=== PATIENT | female | born 1935 | race Caucasian/White ===

== ENCOUNTER 2018-02-08 16:59 | Inpatient (IN) | payer OTHER, MEDICARE ==
--- NOTE | 2018-02-08 17:11 | PDOC ---
History of Present Illness - General Stated Complaint: Weakness Time Seen by Provider: 02/08/18 17:03 History Source: Patient, EMS Exam Limitations: No Limitations - History of Present Illness Initial Comments: 02/08/18 17:11 The patient is an 82F with a PMH of hypertension, hypercholesterolemia, myocardial infarction, CVA and diabetes mellitus who presents to the ER via EMS for complaints of weakness and chest/epigastric pain. The patient states that she was in her normal state of health this morning and developed weakness around 9 am. She describes the weakness as constant, generalized, and feels like her prior CVA. She states that she was walking to the bathroom and felt like she was going to fall, and that's when she called EMS. She also admits to nonradiating and resolved epigastric/retrosternal chest pain which she cannot describe further, but was associated with shortness of breath. She currently denies any CP, SOB, fevers, chills, nausea, vomiting, but does endorse the weakness. She also states that she has been taking an antibiotic (Keflex) for [address] Grant, her urologist. Past History - Past Medical History Allergies/Adverse Reactions: Allergies Allergy/AdvReac Type Severity Reaction Status Date / Time codeine [Codeine] Allergy Verified 02/08/18 17:13 Home Medications: Ambulatory Orders Cephalexin [Keflex] 250 mg PO BID 02/08/18 Clopidogrel Bisulfate [Plavix] 75 mg PO DAILY 02/08/18 Insulin Aspart [Novolog] 40 unit SQ TID 02/08/18 Insulin Detemir [Levemir Flextouch] 40 unit SQ HS 02/08/18 Rosuvastatin [Crestor -] 20 mg PO DAILY 02/08/18 Sitagliptin Phosphate [Januvia] 25 mg PO DAILY 02/08/18 Cardiac Disorders: Yes (NM) CVA: Yes Diabetes: Yes HTN: Yes Hypercholesterolemia: Yes - Surgical History Cardiac Surgery: Yes (BYPASS 2011, ENDARDERECTOMY, 2 STENTS) Cholecystectomy: Yes Orthopedic Surgery: No - Suicide/Smoking/Psychosocial Hx Smoking Status: No Smoking History: Never smoked Have you smoked in the past 12 months: No Number of Cigarettes Smoked Daily: 0 Hx Alcohol Use: No Drug/Substance Use Hx: No Substance Use Type: None Hx Substance Use Treatment: No Review of Systems - Review of Systems Able to Perform ROS?: Yes Comments:: 02/08/18 17:57 GENERAL/CONSTITUTIONAL: Positive for weakness. No fever or chills. HEAD, EYES, EARS, NOSE AND THROAT: No change in vision. No ear pain or discharge. No sore throat. CARDIOVASCULAR: Positive for resolved chest pain. No palpitations or lightheadedness. RESPIRATORY: Positive for resolved shortness of breath. No cough, wheezing, or hemoptysis. GASTROINTESTINAL: No nausea, vomiting, diarrhea, constipation, or abdominal pain. GENITOURINARY: No dysuria, frequency, hematuria, or change in urination. MUSCULOSKELETAL: No joint or muscle swelling or pain. No neck or back pain. SKIN: No rash or lesions. NEUROLOGIC: No headache, numbness, tingling, focal weakness, loss of consciousness, or change in strength/sensation. ENDOCRINE: No increased thirst. No abnormal weight change. HEMATOLOGIC/LYMPHATIC: No anemia, easy bleeding, or history of blood clots. ALLERGIC/IMMUNOLOGIC: No hives or skin allergy.\ Is the patient limited Setswana proficient: No *Physical Exam - Physical Exam Comments: 02/08/18 17:59 GENERAL: Well developed, well nourished. Awake and alert. No acute distress. HEENT: Normocephalic, atraumatic. Hearing grossly normal. Moist mucous membranes. PERRLA, EOMI. No conjunctival pallor. Sclera are non-icteric. NECK: Supple. Full ROM. No JVD. CARDIOVASCULAR: Regular rate and rhythm. No murmurs, rubs, or gallops. PULMONARY: No evidence of respiratory distress. Lungs clear to auscultation bilaterally. No wheezing, rales or rhonchi. ABDOMINAL: Soft. TTP over epigastric, RUQ, LLQ, and RLQ. Guarding present in RUQ. Non-distended. GENITOURINARY: No CVA tenderness bilaterally. MUSCULOSKELETAL: Normal range of motion at all joints. No bony deformities or tenderness. EXTREMITIES: No cyanosis. No clubbing. No edema. No calf tenderness or swelling. SKIN: Warm and dry. Normal capillary refill. No rashes. No jaundice. NEUROLOGICAL: Alert, awake, appropriate. Cranial nerves 2-12 intact. No deficits to light touch and temperature in face, upper extremities and lower extremities. 5/5 strength in deltoids, biceps, triceps, quadriceps, hamstrings, and gastrocnemius. Finger to nose normal bilaterally. Normal speech. PSYCHIATRIC: Cooperative. Good eye contact. Appropriate mood and affect. ED Treatment Course - LABORATORY CBC & Chemistry Diagram: 02/08/18 17:23 02/08/18 17:23 - RADIOLOGY Radiology Studies Ordered: Category Date Time Status CHEST X-RAY PORTABLE* [RAD] Stat Radiology 02/08/18 17:09 Ordered Medical Decision Making - Medical Decision Making 02/08/18 18:02 The patient is an 82F, well appearing, with a PMH of HTN, HLD, CVA, and NM with 4 stents who presents to the ER with complaints of generalized weakness and resolved CP concerning for ACS vs CVA. Her abdominal exam is concerning for RUQ pathology vs worsening UTI although she does not have any CVA tenderness. Pending labs and imaging. 02/08/18 19:01 CBC WNL. Trop of 0.13. Will give asa and consult her egg crater, Dr. Forrester. Pending call back. 02/08/18 19:13 Case d/w Dr. Barry who states that it is likely 2/2 to cardiac demand as recent BP is 200/70's. Will give IV labetalol and PO carvedilol per recs of Dr. Forrester. Will microblog for admission. 02/08/18 19:57 I have endorsed the patient to Dr. Trinh for tele monitoring. 02/08/18 20:08 Repeat BP is 204/51 prior to giving meds with a HR of 65. Will cancel b- blockers and give hydralazine as the pt has kidney disease and cannot give NOY- I. *DC/Admit/Observation/Transfer Diagnosis at time of Disposition: Elevated troponin, Weakness - Discharge Dispostion Condition at time of disposition: Guarded Decision to Admit order: Yes - Referrals Referrals: Deric Hua MD [Primary Care Provider] - - Patient Instructions - Post Discharge Activity
[2018-02-08] MEDS ORDERED: HEMOQUE TEST 1 EACH EACH ONE (17:41)
[2018-02-08 17:44] LABS: BASO % 1.4 % (0-2.0); EOS % 1.8 % (0-4.5); HEMATOCRIT 38.6 % (32.4-45.2); HEMOGLOBIN 12.8 GM/dL (10.7-15.3); LYMPH % 26.1 % (8-40); MCH 30.5 pg (25.7-33.7); MCHC 33.3 g/dl (32.0-36.0); MEAN CELL VOLUME 91.6 fl (80-96); MEAN PLT VOLUME 10.5 fl (7.5-11.1); NEUT % 63.7 % (42.8-82.8); PLATELET COUNT 226 K/MM3 (134-434); RBC 4.22 M/mm3 (3.60-5.2); RDW 13.9 % (11.6-15.6); WHITE BLOOD COUNT 7.7 K/mm3 (4.0-10.0)
[2018-02-08 17:55] LABS: INR 0.92 (0.83-1.09); PROTHROMBIN TIME (PATIENT) 10.4 SEC (9.7-13.0)
--- NOTE | 2018-02-08 18:02 | PDOC ---
Attending Attestation - HPI HPI: 02/08/18 18:16 The patient is a 82 year old female with past medical history significant for CAD (s/p PTCI 2011), CHF, HTN, HLD, [place] (2010), CVA (R. side), GERD, Renal Inusuff, B12 Deficiency, Chronic low back pain, OA (left knee severe), spinal stenosis and DM presents to the emergency department via EMS with weakness. The patient states earlier today she was trying to ambulate to the bathroom when the onset of shakes presented. The patient states she felt as if shes about to fall. The patient is currently on treated for urine infection with Keflex. The patient states she follows Dr. Shepherd. The patient reports the baseline use of a walker to ambulate. Denies abdominal pain or chest pain. Denies any other complaints. Allergies: Codeine Social history: No reported use of past or present use of tobacco, alcohol or recreational drugs. Surgical history: PTCI (2011), PCP: Dr. Deric Hua Urologist: Dr. Shepherd. - Medical Decision Making 02/08/18 18:16 Documentation prepared by Merry Abernathy, acting as biomedical engineering internship for Flaquita Aleman MD. 02/08/18 19:[address] Forrester at 7:07 pm. 02/08/18 19:[address] Forrester. 02/08/18 19:[address] Hua's group at 7:48 pm. Waiting for a call back from Dr. Trihn. 02/08/18 19:[address] Trinh at 7:56 pm. <Merry Abernathy - Last Filed: 02/08/18 19:56> - Resident Resident Name: Fritz Lora - ED Attending Attestation I have performed the following: I have examined & evaluated the patient, The case was reviewed & discussed with the resident, I agree w/resident's findings & plan, Exceptions are as noted - Physicial Exam PE: GENERAL: Awake, alert, and fully oriented, in no acute distress HEAD: No signs of trauma EYES: PERRLA, EOMI, sclera anicteric, conjunctiva clear ENT: Auricles normal inspection, hearing grossly normal, nares patent, oropharynx clear without exudates. Moist mucosa NECK: Normal ROM, supple, no lymphadenopathy, JVD, or masses LUNGS: Breath sounds equal, clear to auscultation bilaterally. No wheezes, and no crackles HEART: Regular rate and rhythm, normal S1 and S2, no murmurs, rubs or gallops ABDOMEN: Soft, nontender, normoactive bowel sounds. No guarding, no rebound. No masses EXTREMITIES: Normal range of motion, no edema. No clubbing or cyanosis. No cords, erythema, or tenderness NEUROLOGICAL: Cranial nerves II through XII grossly intact. Normal speech. Moving all extremities. Strength 4/5 RUE/RLE (chronic since stroke, per patient , walks with cane). SKIN: Warm, Dry, normal turgor, no rashes or lesions noted. - Medical Decision Making Pt presents with weakness in both legs, having difficulty walking since this morning. She has no focal new deficits on exam (prior deficits from prior CVA noted). CVA unlikely at present. Will obtain CTH, but also will obtain UA, labs , troponin. <Flaquita Aleman - Last Filed: 02/08/18 23:22>
[2018-02-08 18:27] LABS: URINE APPEARANCE CLEAR; URINE BILIRUBIN NEGATIVE (<2.0 mg/dL); URINE COLOR LTYELLOW; URINE GLUCOSE (UA) NEGATIVE (NEGATIVE); URINE KETONE NEGATIVE (NEGATIVE); URINE LEUK ESTERASE NEGATIVE (NEGATIVE); URINE NITRITE NEGATIVE (NEGATIVE); URINE UROBILINOGEN NEGATIVE mg/dL (0.2-1.0)
[2018-02-08 18:31] LABS: URINE PROTEIN 2+ (NEGATIVE)
[2018-02-08 18:32] LABS: EPI CELLS RARE /HPF (FEW); URINE BACTERIA RARE /hpf (NONE SEEN)
[2018-02-08 18:51] LABS: ALBUMIN 3.2 g/dl (3.4-5.0); ALK PHOS 67 U/L (45-117); ANION GAP 5 MMOL/L (8-16); BILIRUBIN,TOTAL 0.4 mg/dL (0.2-1); BLOOD UREA NITROGEN 33 mg/dL (7-18); CALCIUM 8.7 mg/dL (8.5-10.1); CHLORIDE 106 mmol/L (98-107); CO2 28 mmol/L (21-32); CREATININE 1.8 mg/dL (0.55-1.3); GLUCOSE,RANDOM 124 mg/dL (74-106); LIPASE 167 U/L (73-393); MAGNESIUM 2.4 mg/dL (1.8-2.4); POTASSIUM 4.8 mmol/L (3.5-5.1); SGOT/AST 28 U/L (15-37); SGPT/ALT 21 U/L (13-61); SODIUM 139 mmol/L (136-145); TOT PROT 6.4 g/dl (6.4-8.2)
[2018-02-08] MEDS ORDERED: ASPIRIN COATED 81 MG TABLET.EC PO ONE (18:56)
[2018-02-08] MEDS ORDERED: ASPIRIN 325 MG TABLET ONE (19:00)
[2018-02-08] MEDS ORDERED: LABETALOL HCL 5 MG/1 ML (100MG/20 ML VIAL) IVPUSH ONE (19:14)
[2018-02-08] MEDS ORDERED: CARVEDILOL 6.25 MG TABLET (FP) PO ONE ×2 (19:15→20:05)
[2018-02-08] MEDS ORDERED: CARVEDILOL 3.125 MG TABLET (FP) ONE (19:54)
[2018-02-08] MEDS ORDERED: hydrALAZINE HCL 10 MG TABLET PO ONE (20:09)
[2018-02-08 21:20] LABS: N-TERMINAL BNP 973.8 pg/ml (5-450)
[2018-02-08] MEDS ORDERED: INSULIN (LEVEMIR) 100 UNITS/ML UNITS SQ SCH (22:00)
[2018-02-08] MEDS ORDERED: INSULIN (LEVEMIR) 100 UNITS/ML UNITS SQ ONE (22:04)
[2018-02-08] MEDS ORDERED: CEPHALEXIN MONOHYDRATE 250 MG CAPSULE (FP) ONE (22:07)
[2018-02-08] MEDS: CEPHALEXIN MONOHYDRATE 250 MG CAPSULE (FP) PO SCH (22:16)
[2018-02-08] MEDS: INSULIN (LEVEMIR) 100 UNITS/ML UNITS SQ SCH (22:17)
[2018-02-08 23:16] VITALS: BMI 33.8
[2018-02-08] MEDS: CARVEDILOL 6.25 MG TABLET (FP) PO SCH (23:31)
[2018-02-09 06:21] LABS: BASO % 0.5 % (0-2.0); EOS % 2.7 % (0-4.5); HEMATOCRIT 37.7 % (32.4-45.2); HEMOGLOBIN 12.4 GM/dL (10.7-15.3); LYMPH % 37.6 % (8-40); MCHC 32.9 g/dl (32.0-36.0); MEAN CELL VOLUME 91.1 fl (80-96); MEAN PLT VOLUME 10.5 fl (7.5-11.1); MONO % 7.2 % (3.8-10.2); PLATELET COUNT 208 K/MM3 (134-434); RBC 4.14 M/mm3 (3.60-5.2); RDW 13.9 % (11.6-15.6)
[2018-02-09] MEDS: sitaGLIPtin PHOSPHATE 25 MG TABLET (FP) PO SCH (06:30)
[2018-02-09] MEDS: INSULIN SLIDING SCALE (NOVOLOG) 1 VIAL SQ SCH ×3 (06:31→17:30)
[2018-02-09 07:20] LABS: ALK PHOS 63 U/L (45-117); ANION GAP 6 MMOL/L (8-16); BILIRUBIN,TOTAL 0.4 mg/dL (0.2-1); BLOOD UREA NITROGEN 31 mg/dL (7-18); CALCIUM 8.6 mg/dL (8.5-10.1); CHLORIDE 106 mmol/L (98-107); CO2 28 mmol/L (21-32); CREATININE 1.7 mg/dL (0.55-1.3); GLUCOSE,RANDOM 184 mg/dL (74-106); POTASSIUM 4.3 mmol/L (3.5-5.1); SGOT/AST 21 U/L (15-37); SGPT/ALT 21 U/L (13-61); SODIUM 140 mmol/L (136-145); TOT PROT 5.9 g/dl (6.4-8.2)
[2018-02-09] MEDS: CLOPIDOGREL BISULFATE 75 MG TABLET (FP) PO SCH (09:59)
[2018-02-09] MEDS: CARVEDILOL 6.25 MG TABLET (FP) PO SCH (09:59)
[2018-02-09] MEDS: ROSUVASTATIN CA 20 MG TABLET (FP) PO SCH (09:59)
[2018-02-09] MEDS: CEPHALEXIN MONOHYDRATE 250 MG CAPSULE (FP) PO SCH ×2 (10:02→21:39)
--- NOTE | 2018-02-09 10:03 | CON.CARD ---
Consult Consult Specialty:: Cardiology Referred by:: Gayathri Reason for Consultation:: positive trop - History of Present Illness Chief Complaint: weakness History of Present Illness: 82F h/o CKD, HTN, HLD, CAD s/p CABG (ROSENBERG-LAD, SVG-D1 2000), EDD to ROSENBERG-LAD and staged EDD to OM1 2011, RPDA stent 2013 with stable grafts in 2013, h/o TIA , PVD, uncontrolled DM p/w weakness, chest/epigastric pain. On morning of day of admission felt weakness which felt like prior TIA, was walking to bathroom and felt like she was going to fall. Also had epigastric pain with shortness of breath that was short lasting and resolved. In the ER Cr 1.8 (Cr 1.7 in 11/2017) , Trop 0.13->0.14, BP 200/70s. Received IV hydralazine not on BP meds at home, started on carvedilol given h/o CAD. head and abd/pelvis CT, CXR no acute process. She feels better today, still unsteady when she walks. - Past Medical History Cardio/Vascular: Yes: CAD (s/p PTCI 2011), CHF, HTN, Hyperlipdemia, [place] (2010) Pulmonary: Yes: Sleep Apnea Gastrointestinal: Yes: GERD Renal/: Yes: Renal Inusuff ...: No Musculoskeletal: Yes: Chronic low back pain, Osteoarthritis (left knee severe), Other (spinal stenosis) Endocrine: Yes: Diabetes Mellitus, Other (Obesity) - Past Surgical History Past Surgical History: Yes: Hysterectomy ((LIZZIE BSO for bleeding fibroids), Oopherectomy - Alcohol/Substance Use Hx Alcohol Use: No History of Substance Use: reports: None - Smoking History Smoking history: Never smoked Have you smoked in the past 12 months: No Aproximately how many cigarettes per day: 0 - Social History ADL: Family Assistance Occupation: , 3 children History of Recent Travel: No Home Medications - Allergies Allergies/Adverse Reactions: Allergies Allergy/AdvReac Type Severity Reaction Status Date / Time codeine [Codeine] Allergy Verified 02/08/18 17:13 - Home Medications Home Medications: Ambulatory Orders Cephalexin [Keflex] 250 mg PO BID 02/08/18 Clopidogrel Bisulfate [Plavix] 75 mg PO DAILY 02/08/18 Insulin Aspart [Novolog] 40 unit SQ TID 02/08/18 Insulin Detemir [Levemir Flextouch] 40 unit SQ HS 02/08/18 Rosuvastatin [Crestor -] 20 mg PO DAILY 02/08/18 Sitagliptin Phosphate [Januvia] 25 mg PO DAILY 02/08/18 Family Disease History - Family Disease History Family History: Unremarkable Review of Systems - Review of Systems Constitutional: reports: Weakness Eyes: reports: No Symptoms HENT: reports: No Symptoms Neck: reports: No Symptoms Cardiovascular: reports: Chest Pain, Shortness of Breath Respiratory: reports: No Symptoms Gastrointestinal: reports: Abdominal Pain Genitourinary: reports: No Symptoms Musculoskeletal: reports: No Symptoms Integumentary: reports: No Symptoms Neurological: reports: No Symptoms Endocrine: reports: No Symptoms Hematology/Lymphatic: reports: No Symptoms Psychiatric: reports: No Symptoms Vital Signs: Vital Signs Temperature 98.2 F 02/09/18 06:00 Pulse Rate 60 02/09/18 06:00 Respiratory Rate 20 02/09/18 06:00 Blood Pressure 155/90 02/09/18 06:00 O2 Sat by Pulse Oximetry (%) 98 02/08/18 23:00 Constitutional: Yes: Well Nourished, No Distress, Calm Eyes: Yes: Conjunctiva Clear, EOM Intact HENT: Yes: Atraumatic, Normocephalic Neck: Yes: Supple, Trachea Midline Respiratory: Yes: Regular, CTA Bilaterally Gastrointestinal: Yes: Normal Bowel Sounds, Soft Cardiovascular: Yes: Regular Rate and Rhythm JVD: No Heart Sounds: Yes: S1, S2 Edema: No Peripheral Pulses: 2+ Left Doralis Pedis, 2+ Right Dorsalis Pedis Neurological: Yes: Alert, Oriented Psychiatric: Yes: Alert, Oriented - Other Data Labs, Other Data: CBC, BMP 02/09/18 05:30 02/09/18 05:30 INR, PTT INR 0.92 (0.83-1.09) 02/08/18 17:23 Troponin, BNP 02/08/18 02/08/18 17:23 21:00 Troponin I 0.13 H 0.14 H B-Natriuretic Peptide 973.8 H Troponin, BNP 02/08/18 02/08/18 17:23 21:00 Troponin I 0.13 H 0.14 H B-Natriuretic Peptide 973.8 H Assessment/Plan EKG: sinus bradycardia, no ischemic changes, nonspecific T wave changes Echo 02/2017 tds, nl LV/RV function, E/A reversal, mild brock atrial enlargement CXR: no acute process 82F h/o CKD, HTN, HLD, CAD, h/o TIA, PVD, uncontrolled DM p/w weakness, chest/ epigastric pain tele: sinus HTN - improved, was not on meds at home - had been started on coreg due to CAD history, however note episodes of bradycardia history per reports, will dc - change to amlodipine 5 mg daily Chest, epigastric pain - trop flat trend, EKG unchanged, history less consistent with ACS - CT abd/pelvis unremarkable - resolved weakness - unclear etiology, imaging shows no acute process - feels like prior TIA, head CT negative, infectious w/u unremarkable - treat HTN as above Pos troponin - flat trend 0.13->0.14, EKG unchanged from prior, unlikely ACS - likely demand in setting of HTN CAD - s/p CABG (ROSENBERG-LAD, SVG-D1 2000), EDD to ROSENBERG-LAD and staged EDD to OM1 2011, RPDA stent 2013 with stable grafts in 2013 - continue statin and plavix h/o TIA - on plavix - CT head no acute process PVD - continue plavix, statin DM - uncontrolled CKD - Cr 1.8, last in clinic 1.7 10/2017
--- NOTE | 2018-02-09 12:50 | HP ---
Admitting History and Physical - Primary Care Physician PCP: Deric Hua - Admission Chief Complaint: Weakness and Epigastric pain History of Present Illness: 82F h/o HTN, HLD, CAD s/p CABGin 2000 , EDD 2011, RPDA stent 2013 TIA, PVD, uncontrolled T2DM , CKD stage 3 yesterday present with after an episode of weakness with epigastric pain while walking to [facility] came to Ed for evaluation, weakness was similar to previous episode of TIA, resolved by the time she arrived to ED, patient BP was uncontrolled recived Coreg and labetalol admitted for further management, no c/o vomiting, diarrhea, melena, fever chills , Chest pain or SOB, evaluated by cardiology consult for mild elevation of trop I. no dynamic EKG changes. - Past Medical History Cardiovascular: Yes: CAD (s/p PTCI 2011), CHF, HTN, Hyperlipdemia, [place] (2010) Pulmonary: Yes: Sleep Apnea Gastrointestinal: Yes: GERD Renal/: Yes: Renal Inusuff ...: No Heme/Onc: Yes: B12 Deficiency Musculoskeletal: Yes: Chronic low back pain, Osteoarthritis (left knee severe), Other (spinal stenosis) Endocrine: Yes: Diabetes Mellitus, Other (Obesity) - Past Surgical History Past Surgical History: Yes: Hysterectomy ((LIZZIE BSO for bleeding fibroids), Oopherectomy - Smoking History Smoking history: Never smoked Have you smoked in the past 12 months: No Aproximately how many cigarettes per day: 0 - Alcohol/Substance Use Hx Alcohol Use: No History of Substance Use: reports: None - Social History ADL: Family Assistance Occupation: , 3 children History of Recent Travel: No Home Medications - Allergies Allergies/Adverse Reactions: Allergies Allergy/AdvReac Type Severity Reaction Status Date / Time codeine [Codeine] Allergy Verified 02/08/18 17:13 - Home Medications Home Medications: Ambulatory Orders Cephalexin [Keflex] 250 mg PO BID 02/08/18 Clopidogrel Bisulfate [Plavix] 75 mg PO DAILY 02/08/18 Insulin Aspart [Novolog] 40 unit SQ TID 02/08/18 Insulin Detemir [Levemir Flextouch] 40 unit SQ HS 02/08/18 Rosuvastatin [Crestor -] 20 mg PO DAILY 02/08/18 Sitagliptin Phosphate [Januvia] 25 mg PO DAILY 02/08/18 Family Disease History - Family Disease History Family History: Unremarkable Review of Systems - Review of Systems Constitutional: denies: Chills, Diaphoresis, Fever Eyes: denies: Blind Spots, Blurred Vision, Double Vision HENT: denies: Difficult Swallowing, Ear Discharge, Ear Pain, Epistaxis Neck: denies: Decreased ROM, Lumps, Pain on Movement Cardiovascular: denies: Chest Pain, Edema, Palpitations, Shortness of Breath Respiratory: denies: Cough, Exercise Intolerance, Hemoptysis, Orthopnea Gastrointestinal: reports: Abdominal Pain. denies: Bloating, Constipation, Diarrhea Genitourinary: denies: Burning, Discharge, Dysuria, Flank Pain Musculoskeletal: denies: Back Pain, Crepitus, Decreased ROM Neurological: denies: Change in LOC, Change in Speech, Confusion Endocrine: denies: Excessive Sweating, Flushing, Increased Hunger Physical Examination Vital Signs: Vital Signs Temperature 98.4 F 02/09/18 10:00 Pulse Rate 61 02/09/18 10:00 Respiratory Rate 18 02/09/18 10:00 Blood Pressure 139/59 L 02/09/18 10:00 O2 Sat by Pulse Oximetry (%) 95 02/09/18 09:00 Constitutional: Yes: Well Nourished, No Distress, Calm. No: Anxious Eyes: Yes: Conjunctiva Clear, EOM Intact HENT: Yes: Atraumatic, Normocephalic. No: Hoarseness, Pharyngeal Erythema Neck: Yes: Supple, Trachea Midline. No: Decreased ROM, Lymphadenopathy Cardiovascular: Yes: Regular Rate and Rhythm, Bradycardia, S1, S2. No: Murmur Respiratory: Yes: Regular, CTA Bilaterally Gastrointestinal: Yes: Normal Bowel Sounds, Soft Extremities: No: Calf Tenderness Edema: No Peripheral Pulses: Left Doralis Pedis: 0, Right Dorsalis Pedis: 0 Neurological: Yes: Alert, Oriented. No: Aphasia, Asterixis ...Motor Strength: WNL, LUE, LLE, RUE Labs: CBC, BMP 02/09/18 05:30 02/09/18 05:30 CBC,CMP WBC 8.0 K/mm3 (4.0-10.0) 02/09/18 05:30 RBC 4.14 M/mm3 (3.60-5.2) 02/09/18 05:30 Hgb 12.4 GM/dL (10.7-15.3) 02/09/18 05:30 Hct 37.7 % (32.4-45.2) 02/09/18 05:30 MCV 91.1 fl (80-96) 02/09/18 05:30 MCH 30.0 pg (25.7-33.7) 02/09/18 05:30 MCHC 32.9 g/dl (32.0-36.0) 02/09/18 05:30 RDW 13.9 % (11.6-15.6) 02/09/18 05:30 Plt Count 208 K/MM3 (134-434) 02/09/18 05:30 MPV 10.5 fl (7.5-11.1) 02/09/18 05:30 Absolute Neuts (auto) 4.2 K/mm3 (1.5-8.0) 02/09/18 05:30 Neutrophils % 52.0 % (42.8-82.8) 02/09/18 05:30 Lymphocytes % 37.6 % (8-40) D 02/09/18 05:30 Monocytes % 7.2 % (3.8-10.2) 02/09/18 05:30 Eosinophils % 2.7 % (0-4.5) 02/09/18 05:30 Basophils % 0.5 % (0-2.0) 02/09/18 05:30 Nucleated RBC % 0 % (0-0) 02/09/18 05:30 Sodium 140 mmol/L (136-145) 02/09/18 05:30 Potassium 4.3 mmol/L (3.5-5.1) 02/09/18 05:30 Chloride 106 mmol/L (98-107) 02/09/18 05:30 Carbon Dioxide 28 mmol/L (21-32) 02/09/18 05:30 Anion Gap 6 MMOL/L (8-16) L 02/09/18 05:30 BUN 31 mg/dL (7-18) H 02/09/18 05:30 Creatinine 1.7 mg/dL (0.55-1.3) H 02/09/18 05:30 Creat Clearance w eGFR 28.77 (>60) 02/09/18 05:30 POC Glucometer 292 UNITS (80-120) 02/09/18 11:43 Random Glucose 184 mg/dL (74-106) H 02/09/18 05:30 Hemoglobin A1c % 9.1 % (4.2-6.3) H 02/09/18 05:30 Calcium 8.6 mg/dL (8.5-10.1) 02/09/18 05:30 Magnesium 2.4 mg/dL (1.8-2.4) 02/08/18 17:23 Total Bilirubin 0.4 mg/dL (0.2-1) 02/09/18 05:30 AST 21 U/L (15-37) 02/09/18 05:30 ALT 21 U/L (13-61) 02/09/18 05:30 Alkaline Phosphatase 63 U/L (45-117) 02/09/18 05:30 Creatine Kinase 62 IU/L (26-192) 02/08/18 17:23 Troponin I 0.14 ng/ml (0.00-0.05) H 02/08/18 21:00 B-Natriuretic Peptide 973.8 pg/ml (5-450) H 02/08/18 17:23 Total Protein 5.9 g/dl (6.4-8.2) L 02/09/18 05:30 Albumin 3.0 g/dl (3.4-5.0) L 02/09/18 05:30 Triglycerides 332 mg/dL (0-150) H 02/08/18 21:00 Cholesterol 141 mg/dL (50-200) 02/08/18 21:00 Total LDL Cholesterol 70 mg/dL (5-100) 02/08/18 21:00 HDL Cholesterol 34 mg/dL (40-60) L 02/08/18 21:00 Lipase 167 U/L (73-393) 02/08/18 17:23 Imaging - Results Chest X-ray: Report Reviewed (No acute changes) EKG: Report Reviewed (Nsr no acute St t changes) Problem List - Problems (1) HTN (hypertension) Assessment/Plan: Uncioontrolled amlodipine is added by cardiology consult Code(s): I10 - ESSENTIAL (PRIMARY) HYPERTENSION (2) CAD (coronary artery disease) Assessment/Plan: s/P CABG and Stent no new EKG changes evaluated by cardiology recommended , in view of mildly elevated Trop I recommonded cont all home meds Code(s): I25.10 - ATHSCL HEART DISEASE OF [place] CORONARY ARTERY W/O ANG PCTRS (3) CKD (chronic kidney disease) Assessment/Plan: Stable cont home meds Code(s): N18.9 - CHRONIC KIDNEY DISEASE, UNSPECIFIED Qualifiers: Chronic kidney disease stage: stage 3 (moderate) Qualified Code(s): N18.3 - Chronic kidney disease, stage 3 (moderate) (4) T2DM (type 2 diabetes mellitus) Assessment/Plan: cont Levomir, Januvia optimize Glycemic control Code(s): E11.9 - TYPE 2 DIABETES MELLITUS WITHOUT COMPLICATIONS (5) Elevated troponin Assessment/Plan: In the setting of elevated BP optomize Bp control Code(s): R74.8 - ABNORMAL LEVELS OF OTHER SERUM ENZYMES (6) Dyslipidemia Assessment/Plan: cont Statin Code(s): E78.5 - HYPERLIPIDEMIA, UNSPECIFIED
[2018-02-09] MEDS: amLODIPine BESYLATE 5 MG TABLET (FP) PO SCH (14:20)
--- NOTE | 2018-02-09 15:35 | EKG ---
Test Reason : Blood Pressure : / mmHG Vent. Rate : 059 BPM Atrial Rate : 059 BPM P-R Int : 176 ms QRS Dur : 084 ms QT Int : 442 ms P-R-T Axes : 015 011 097 degrees QTc Int : 437 ms SINUS BRADYCARDIA ABNORMAL QRS-T ANGLE, CONSIDER PRIMARY T WAVE ABNORMALITY ABNORMAL ECG WHEN COMPARED WITH ECG OF 27-MAR-2016 16:40, T WAVE AMPLITUDE HAS DECREASED IN LATERAL LEADS Confirmed by MD Aubrey, Keo ([id number]) on 02/09/2018 3:35:30 PM Referred By: Confirmed By:Keo Burgos MD
[2018-02-09] MEDS ORDERED: PT OWN MED DRAWER 7, Y5N ONE (21:37)
[2018-02-09] MEDS: INSULIN (LEVEMIR) 100 UNITS/ML UNITS SQ SCH (21:39)
[2018-02-10] MEDS: INSULIN SLIDING SCALE (NOVOLOG) 1 VIAL SQ SCH ×3 (06:41→18:12)
[2018-02-10] MEDS ORDERED: INSULIN (NOVOLOG) ASPART 100 UNITS/ML 10ML VIAL ONE ×2 (06:41→12:17)
[2018-02-10] MEDS: sitaGLIPtin PHOSPHATE 25 MG TABLET (FP) PO SCH (06:42)
[2018-02-10] MEDS ORDERED: PT OWN MED DRAWER 7, Y5N ONE (09:50)
--- NOTE | 2018-02-10 10:18 | PN ---
Progress Note (short form) - Note Progress Note: s: no chest pain, dizziness, palps, edema, sob tele: sinus jermain, PVCs o: Current Medications Amlodipine Besylate (Norvasc -) 5 mg PO DAILY [facility] Last Admin: 02/09/18 14:20 Dose: 5 mg Cephalexin HCl (Keflex -) 250 mg PO BID [facility] Last Admin: 02/09/18 21:39 Dose: 250 mg Clopidogrel Bisulfate (Plavix -) 75 mg PO DAILY [facility] Last Admin: 02/09/18 09:59 Dose: 75 mg Insulin Aspart (Novolog Vial Sliding Scale -) 1 vial SQ TIDAC [facility]; Protocol Last Admin: 02/10/18 06:41 Dose: 4 units Insulin Detemir (Levemir Vial) 20 units SQ [facility] Last Admin: 02/09/18 21:39 Dose: 20 units Rosuvastatin Calcium (Crestor -) 20 mg PO DAILY [facility] Last Admin: 02/09/18 09:59 Dose: 20 mg Sitagliptin Phosphate (Januvia -) 25 mg PO DAILY@0700 [facility] Last Admin: 02/10/18 06:42 Dose: 25 mg Vital Signs Period Temp Pulse Resp BP Sys/Mckeon Pulse Ox Last 24 Hr 97.5 F-98.5 F 52-65 20-20 126-158/48-67 95-98 Constitutional: Yes: Well Nourished, No Distress, Calm Eyes: Yes: Conjunctiva Clear, EOM Intact HENT: Yes: Atraumatic, Normocephalic Neck: Yes: Supple, Trachea Midline Respiratory: Yes: Regular, CTA Bilaterally Gastrointestinal: Yes: Normal Bowel Sounds, Soft Cardiovascular: Yes: Regular Rate and Rhythm JVD: No Heart Sounds: Yes: S1, S2 Edema: No Peripheral Pulses: 2+ Left Doralis Pedis, 2+ Right Dorsalis Pedis Neurological: Yes: Alert, Oriented Psychiatric: Yes: Alert, Oriented Assessment/Plan EKG: sinus bradycardia, no ischemic changes, nonspecific T wave changes Echo 02/2017 tds, nl LV/RV function, E/A reversal, mild brock atrial enlargement CXR: no acute process 82F h/o CKD, HTN, HLD, CAD, h/o TIA, PVD, uncontrolled DM p/w weakness, chest/ epigastric pain tele: sinus HTN - improved, was not on meds at home - had been started on coreg due to CAD history, however note episodes of bradycardia history per reports, dc'ed - started on amlodipine, BP improved, continue Chest, epigastric pain - trop flat trend, EKG unchanged, history less consistent with ACS - CT abd/pelvis unremarkable - resolved weakness - unclear etiology, imaging shows no acute process - feels like prior TIA, head CT negative, infectious w/u unremarkable - treat HTN as above - feels better today, unsteady walking, may need PT eval Pos troponin - flat trend 0.13->0.14, EKG unchanged from prior, unlikely ACS - likely demand in setting of HTN CAD - s/p CABG (ROSENBERG-LAD, SVG-D1 2000), EDD to ROSENBERG-LAD and staged EDD to OM1 2011, RPDA stent 2013 with stable grafts in 2013 - continue statin and plavix - no sign ACS as above h/o TIA - on plavix - CT head no acute process PVD - continue plavix, statin DM - uncontrolled CKD - Cr 1.8, last in clinic 1.7 10/2017
[2018-02-10] MEDS: amLODIPine BESYLATE 5 MG TABLET (FP) PO SCH (10:43)
[2018-02-10] MEDS: ROSUVASTATIN CA 20 MG TABLET (FP) PO SCH (10:43)
[2018-02-10] MEDS: CEPHALEXIN MONOHYDRATE 250 MG CAPSULE (FP) PO SCH ×2 (10:43→22:01)
[2018-02-10] MEDS: CLOPIDOGREL BISULFATE 75 MG TABLET (FP) PO SCH (10:43)
--- NOTE | 2018-02-10 13:11 | PN ---
Progress Note, Physician Chief Complaint: Comfortable not in distress - Current Medication List Current Medications: Active Medications Amlodipine Besylate (Norvasc -) 5 mg PO DAILY [facility] Last Admin: 02/10/18 10:43 Dose: 5 mg Cephalexin HCl (Keflex -) 250 mg PO BID [facility] Last Admin: 02/10/18 10:43 Dose: 250 mg Clopidogrel Bisulfate (Plavix -) 75 mg PO DAILY [facility] Last Admin: 02/10/18 10:43 Dose: 75 mg Insulin Aspart (Novolog Vial Sliding Scale -) 1 vial SQ TIDAC [facility]; Protocol Last Admin: 02/10/18 12:16 Dose: 12 units Insulin Detemir (Levemir Vial) 20 units SQ HS [facility] Last Admin: 02/09/18 21:39 Dose: 20 units Rosuvastatin Calcium (Crestor -) 20 mg PO DAILY [facility] Last Admin: 02/10/18 10:43 Dose: 20 mg Sitagliptin Phosphate (Januvia -) 25 mg PO DAILY@0700 [facility] Last Admin: 02/10/18 06:42 Dose: 25 mg - Objective Vital Signs: Vital Signs Temperature 98.2 F 02/10/18 05:14 Pulse Rate 52 L 02/10/18 05:14 Respiratory Rate 20 02/10/18 09:00 Blood Pressure 140/48 L 02/10/18 05:14 O2 Sat by Pulse Oximetry (%) 98 02/10/18 09:00 Constitutional: Yes: Well Nourished, No Distress, Calm. No: Anxious HEENT: Conjunctiva Clear, EOM Intact, Atraumatic, Normocephalic. No: Hoarseness , Pharyngeal Erythema Neck: Yes: Supple, Trachea Midline. No: Decreased ROM, Lymphadenopathy Cardiovascular: Yes: Regular Rate and Rhythm, Bradycardia, S1, S2. No: Murmur Respiratory: Yes: Regular, CTA Bilaterally Gastrointestinal: Yes: Normal Bowel Sounds, Soft Extremities: No: Calf Tenderness, no Edema, Peripheral Pulses: Left Doralis Pedis: 1, Right Dorsalis Pedis: 1 Neurological: Yes: Alert, Oriented. No: Aphasia, Asterixis, .Motor Strength: WNL, LUE, LLE, RUE Labs: CBC, BMP 02/09/18 05:30 02/09/18 05:30 INR, PTT INR 0.92 (0.83-1.09) 02/08/18 17:23 Problem List - Problems (1) HTN (hypertension) Assessment/Plan: Uncioontrolled amlodipine is added by cardiology consult Code(s): I10 - ESSENTIAL (PRIMARY) HYPERTENSION (2) CAD (coronary artery disease) Assessment/Plan: s/P CABG and Stent no new EKG changes evaluated by cardiology recommended , in view of mildly elevated Trop I recommonded cont all home meds Code(s): I25.10 - ATHSCL HEART DISEASE OF [place] CORONARY ARTERY W/O ANG PCTRS (3) CKD (chronic kidney disease) Assessment/Plan: Stable cont home meds Code(s): N18.9 - CHRONIC KIDNEY DISEASE, UNSPECIFIED Qualifiers: Chronic kidney disease stage: stage 3 (moderate) Qualified Code(s): N18.3 - Chronic kidney disease, stage 3 (moderate) (4) T2DM (type 2 diabetes mellitus) Assessment/Plan: cont Levomir, Januvia optimize Glycemic control Code(s): E11.9 - TYPE 2 DIABETES MELLITUS WITHOUT COMPLICATIONS (5) Elevated troponin Assessment/Plan: In the setting of elevated BP optomize Bp control Code(s): R74.8 - ABNORMAL LEVELS OF OTHER SERUM ENZYMES (6) Dyslipidemia Assessment/Plan: cont Statin Code(s): E78.5 - HYPERLIPIDEMIA, UNSPECIFIED (7) Chronic UTI Assessment/Plan: on suppressive abx f/u u culture Code(s): N39.0 - URINARY TRACT INFECTION, SITE NOT SPECIFIED
[2018-02-10] MEDS: INSULIN (LEVEMIR) 100 UNITS/ML UNITS SQ SCH (22:01)
[2018-02-11] MEDS: INSULIN SLIDING SCALE (NOVOLOG) 1 VIAL SQ SCH ×3 (06:24→17:11)
[2018-02-11] MEDS: sitaGLIPtin PHOSPHATE 25 MG TABLET (FP) PO SCH (06:25)
[2018-02-11 06:55] LABS: BASO % 0.5 % (0-2.0); EOS % 3.1 % (0-4.5); HEMATOCRIT 37.9 % (32.4-45.2); HEMOGLOBIN 12.3 GM/dL (10.7-15.3); LYMPH % 35.4 % (8-40); MCH 30.1 pg (25.7-33.7); MCHC 32.6 g/dl (32.0-36.0); MEAN CELL VOLUME 92.5 fl (80-96); MEAN PLT VOLUME 10.4 fl (7.5-11.1); MONO % 6.9 % (3.8-10.2); NEUT % 54.1 % (42.8-82.8); PLATELET COUNT 187 K/MM3 (134-434); RDW 13.6 % (11.6-15.6); WHITE BLOOD COUNT 8.3 K/mm3 (4.0-10.0)
[2018-02-11 07:25] LABS: ALBUMIN 2.9 g/dl (3.4-5.0); ALK PHOS 61 U/L (45-117); ANION GAP 8 MMOL/L (8-16); BILIRUBIN,TOTAL 0.4 mg/dL (0.2-1); BLOOD UREA NITROGEN 39 mg/dL (7-18); CALCIUM 8.7 mg/dL (8.5-10.1); CHLORIDE 105 mmol/L (98-107); CO2 26 mmol/L (21-32); CREATININE 1.7 mg/dL (0.55-1.3); GLUCOSE,RANDOM 206 mg/dL (74-106); POTASSIUM 4.4 mmol/L (3.5-5.1); SGOT/AST 19 U/L (15-37); SGPT/ALT 20 U/L (13-61); SODIUM 139 mmol/L (136-145); TOT PROT 5.9 g/dl (6.4-8.2)
[2018-02-11] MEDS ORDERED: PT OWN MED DRAWER 7, Y5N ONE (09:46)
--- NOTE | 2018-02-11 10:42 | PN ---
Progress Note (short form) - Note Progress Note: s: no chest pain, dizziness, palps, edema, sob tele: sinus jermain, PVCs o: Current Medications Amlodipine Besylate (Norvasc -) 5 mg PO DAILY [facility] Last Admin: 02/10/18 10:43 Dose: 5 mg Cephalexin HCl (Keflex -) 250 mg PO BID [facility] Last Admin: 02/10/18 22:01 Dose: 250 mg Clopidogrel Bisulfate (Plavix -) 75 mg PO DAILY [facility] Last Admin: 02/10/18 10:43 Dose: 75 mg Insulin Aspart (Novolog Vial Sliding Scale -) 1 vial SQ TIDAC [facility]; Protocol Last Admin: 02/11/18 06:24 Dose: 4 units Insulin Detemir (Levemir Vial) 20 units SQ [facility] Last Admin: 02/10/18 22:01 Dose: 20 units Rosuvastatin Calcium (Crestor -) 20 mg PO DAILY [facility] Last Admin: 02/10/18 10:43 Dose: 20 mg Sitagliptin Phosphate (Januvia -) 25 mg PO DAILY@0700 [facility] Last Admin: 02/11/18 06:25 Dose: 25 mg Vital Signs Period Temp Pulse Resp BP Sys/Mckeon Pulse Ox Last 24 Hr 97.8 F-98.6 F 56-65 18-20 127-169/62-85 98-98 Constitutional: Yes: Well Nourished, No Distress, Calm Eyes: Yes: Conjunctiva Clear, EOM Intact HENT: Yes: Atraumatic, Normocephalic Neck: Yes: Supple, Trachea Midline Respiratory: Yes: Regular, CTA Bilaterally Gastrointestinal: Yes: Normal Bowel Sounds, Soft Cardiovascular: Yes: Regular Rate and Rhythm JVD: No Heart Sounds: Yes: S1, S2 Edema: No Peripheral Pulses: 2+ Left Doralis Pedis, 2+ Right Dorsalis Pedis Neurological: Yes: Alert, Oriented Psychiatric: Yes: Alert, Oriented Assessment/Plan EKG: sinus bradycardia, no ischemic changes, nonspecific T wave changes Echo 02/2017 tds, nl LV/RV function, E/A reversal, mild brock atrial enlargement CXR: no acute process 82F h/o CKD, HTN, HLD, CAD, h/o TIA, PVD, uncontrolled DM p/w weakness, chest/ epigastric pain tele: sinus HTN - improved, was not on meds at home - had been started on coreg due to CAD history, however note episodes of bradycardia history per reports, dc'ed - started on amlodipine, increase dose to 10 mg daily Chest, epigastric pain - trop flat trend, EKG unchanged, history less consistent with ACS - CT abd/pelvis unremarkable - resolved weakness - unclear etiology, imaging shows no acute process - feels like prior TIA, head CT negative, infectious w/u unremarkable - treat HTN as above - feels better today, unsteady walking, PT eval Pos troponin - flat trend 0.13->0.14, EKG unchanged from prior, unlikely ACS - likely demand in setting of HTN CAD - s/p CABG (ROSENBERG-LAD, SVG-D1 2000), EDD to ROSENBERG-LAD and staged EDD to OM1 2011, RPDA stent 2013 with stable grafts in 2013 - continue statin and plavix - no sign ACS as above h/o TIA - on plavix - CT head no acute process PVD - continue plavix, statin DM - uncontrolled CKD - Cr 1.8, last in clinic 1.7 10/2017
[2018-02-11] MEDS: CLOPIDOGREL BISULFATE 75 MG TABLET (FP) PO SCH (11:10)
[2018-02-11] MEDS: ROSUVASTATIN CA 20 MG TABLET (FP) PO SCH (11:10)
[2018-02-11] MEDS: CEPHALEXIN MONOHYDRATE 250 MG CAPSULE (FP) PO SCH ×2 (11:10→21:49)
[2018-02-11] MEDS: amLODIPine BESYLATE 10 MG TABLET (FP) PO SCH (11:10)
--- NOTE | 2018-02-11 13:12 | PN ---
Progress Note, Physician Chief Complaint: Ms Ramos complains of difficulty walking. No cp, sob, n/v. - Current Medication List Current Medications: Active Medications Amlodipine Besylate (Norvasc -) 10 mg PO DAILY [facility] Last Admin: 02/11/18 11:10 Dose: 10 mg Cephalexin HCl (Keflex -) 250 mg PO BID [facility] Last Admin: 02/11/18 11:10 Dose: 250 mg Clopidogrel Bisulfate (Plavix -) 75 mg PO DAILY [facility] Last Admin: 02/11/18 11:10 Dose: 75 mg Insulin Aspart (Novolog Vial Sliding Scale -) 1 vial SQ TIDAC [facility]; Protocol Last Admin: 02/11/18 12:02 Dose: 8 units Insulin Detemir (Levemir Vial) 20 units SQ BID [facility] Rosuvastatin Calcium (Crestor -) 20 mg PO DAILY [facility] Last Admin: 02/11/18 11:10 Dose: 20 mg Sitagliptin Phosphate (Januvia -) 25 mg PO DAILY@0700 [facility] Last Admin: 02/11/18 06:25 Dose: 25 mg - Objective Vital Signs: Vital Signs Temperature 37.0 C 02/11/18 01:54 Pulse Rate 65 02/11/18 08:49 Respiratory Rate 18 02/11/18 08:51 Blood Pressure 157/74 02/11/18 08:49 O2 Sat by Pulse Oximetry (%) 98 02/11/18 08:51 Constitutional: Yes: No Distress, Calm, Obese Cardiovascular: Yes: Regular Rate and Rhythm. No: Gallop, Murmur, Rub Respiratory: Yes: Regular, CTA Bilaterally. No: Rales, Rhonchi, Wheezes Gastrointestinal: Yes: Normal Bowel Sounds, Soft. No: Distention, Tenderness Extremities: Yes: WNL Edema: No Labs: CBC, BMP 02/11/18 05:30 02/11/18 05:30 INR, PTT INR 0.92 (0.83-1.09) 02/08/18 17:23 Problem List - Problems (1) HTN (hypertension) Assessment/Plan: -improved control with amlodipine -on full dose -monitor -can add other medications as an outpatient if remains elevated Code(s): I10 - ESSENTIAL (PRIMARY) HYPERTENSION (2) Elevated troponin Assessment/Plan: -appreciate cardiology assistance -case d/w Dr Forrester -no further intervention needed Code(s): R74.8 - ABNORMAL LEVELS OF OTHER SERUM ENZYMES (3) T2DM (type 2 diabetes mellitus) Assessment/Plan: -poorly controlled here but on levemir 40 units qhs and 20 units here -will change levemir to 20 units bid Code(s): E11.9 - TYPE 2 DIABETES MELLITUS WITHOUT COMPLICATIONS (4) Weakness Assessment/Plan: -PT consulted -awaiting assessment but suspect will need SNF placement Code(s): R53.1 - WEAKNESS (5) CAD (coronary artery disease) Assessment/Plan: -continue home regimen -currently no chest pain Code(s): I25.10 - ATHSCL HEART DISEASE OF [place] CORONARY ARTERY W/O ANG PCTRS (6) CKD (chronic kidney disease) Assessment/Plan: -stable Code(s): N18.9 - CHRONIC KIDNEY DISEASE, UNSPECIFIED Qualifiers: Chronic kidney disease stage: stage 3 (moderate) Qualified Code(s): N18.3 - Chronic kidney disease, stage 3 (moderate) (7) Dyslipidemia Assessment/Plan: -continue statin Code(s): E78.5 - HYPERLIPIDEMIA, UNSPECIFIED (8) Osteoarthritis of knee Assessment/Plan: -SNF for PT Code(s): M17.9 - OSTEOARTHRITIS OF KNEE, UNSPECIFIED Qualifiers: Osteoarthritis type: primary Laterality: right Qualified Code(s): M17.11 - Unilateral primary osteoarthritis, right knee
[2018-02-11] MEDS: INSULIN (LEVEMIR) 100 UNITS/ML UNITS SQ SCH (21:50)
[2018-02-12] MEDS: sitaGLIPtin PHOSPHATE 25 MG TABLET (FP) PO SCH (06:31)
[2018-02-12] MEDS: INSULIN (LEVEMIR) 100 UNITS/ML UNITS SQ SCH (06:31)
[2018-02-12] MEDS: INSULIN SLIDING SCALE (NOVOLOG) 1 VIAL SQ SCH ×2 (06:32→11:21)
[2018-02-12 06:49] LABS: BASO % 0.6 % (0-2.0); EOS % 2.8 % (0-4.5); HEMATOCRIT 38.7 % (32.4-45.2); HEMOGLOBIN 12.7 GM/dL (10.7-15.3); LYMPH % 33.8 % (8-40); MCH 30.4 pg (25.7-33.7); MEAN CELL VOLUME 92.3 fl (80-96); MEAN PLT VOLUME 10.5 fl (7.5-11.1); MONO % 6.8 % (3.8-10.2); PLATELET COUNT 203 K/MM3 (134-434); RBC 4.19 M/mm3 (3.60-5.2); WHITE BLOOD COUNT 8.8 K/mm3 (4.0-10.0)
[2018-02-12 07:18] LABS: ANION GAP 10 MMOL/L (8-16); BLOOD UREA NITROGEN 36 mg/dL (7-18); CHLORIDE 106 mmol/L (98-107); CO2 25 mmol/L (21-32); CREATININE 1.6 mg/dL (0.55-1.3); GLUCOSE,RANDOM 218 mg/dL (74-106); MAGNESIUM 2.3 mg/dL (1.8-2.4); PHOSPHOROUS 4.2 mg/dL (2.5-4.9); POTASSIUM 4.3 mmol/L (3.5-5.1); SODIUM 141 mmol/L (136-145)
[2018-02-12 08:26] VITALS: BP 114/49; PULSE 59; TEMP 98.2
[2018-02-12] MEDS ORDERED: PT OWN MED DRAWER 7, Y5N ONE (09:54)
[2018-02-12] MEDS: ROSUVASTATIN CA 20 MG TABLET (FP) PO SCH (09:55)
[2018-02-12] MEDS: CEPHALEXIN MONOHYDRATE 250 MG CAPSULE (FP) PO SCH (09:55)
[2018-02-12] MEDS: CLOPIDOGREL BISULFATE 75 MG TABLET (FP) PO SCH (09:55)
[2018-02-12] MEDS: amLODIPine BESYLATE 10 MG TABLET (FP) PO SCH (09:55)
--- NOTE | 2018-02-12 10:32 | PN ---
Progress Note (short form) - Note Progress Note: s: no chest pain, dizziness, palps, edema, sob. feels tired tele: sinus o: Current Medications Amlodipine Besylate (Norvasc -) 10 mg PO DAILY [facility] Last Admin: 02/12/18 09:55 Dose: 10 mg Cephalexin HCl (Keflex -) 250 mg PO BID [facility] Last Admin: 02/12/18 09:55 Dose: 250 mg Clopidogrel Bisulfate (Plavix -) 75 mg PO DAILY [facility] Last Admin: 02/12/18 09:55 Dose: 75 mg Insulin Aspart (Novolog Vial Sliding Scale -) 1 vial SQ TIDAC [facility]; Protocol Last Admin: 02/12/18 06:32 Dose: 4 units Insulin Detemir (Levemir Vial) 20 units SQ BID@0700,2200 [facility] Last Admin: 02/12/18 06:31 Dose: 20 units Rosuvastatin Calcium (Crestor -) 20 mg PO DAILY [facility] Last Admin: 02/12/18 09:55 Dose: 20 mg Sitagliptin Phosphate (Januvia -) 25 mg PO DAILY@0700 [facility] Last Admin: 02/12/18 06:31 Dose: 25 mg Vital Signs Period Temp Pulse Resp BP Sys/Mckeon Pulse Ox Last 24 Hr 97.5 F-98.8 F 56-63 18-20 114-159/49-64 96-98 Constitutional: Yes: Well Nourished, No Distress, Calm Eyes: Yes: Conjunctiva Clear, EOM Intact HENT: Yes: Atraumatic, Normocephalic Neck: Yes: Supple, Trachea Midline Respiratory: Yes: Regular, CTA Bilaterally Gastrointestinal: Yes: Normal Bowel Sounds, Soft Cardiovascular: Yes: Regular Rate and Rhythm JVD: No Heart Sounds: Yes: S1, S2 Edema: No Peripheral Pulses: 2+ Left Doralis Pedis, 2+ Right Dorsalis Pedis Neurological: Yes: Alert, Oriented Psychiatric: Yes: Alert, Oriented Assessment/Plan EKG: sinus bradycardia, no ischemic changes, nonspecific T wave changes Echo 02/2017 tds, nl LV/RV function, E/A reversal, mild brock atrial enlargement CXR: no acute process 82F h/o CKD, HTN, HLD, CAD, h/o TIA, PVD, uncontrolled DM p/w weakness, chest/ epigastric pain tele: sinus HTN - improved, was not on meds at home - had been started on coreg due to CAD history, however note episodes of bradycardia history per reports, dc'ed - continue amlodipine Chest, epigastric pain - trop flat trend, EKG unchanged, history less consistent with ACS - CT abd/pelvis unremarkable - resolved - stable from cardiac perspective, DC telemetry weakness - unclear etiology, imaging shows no acute process - feels like prior TIA, head CT negative, infectious w/u unremarkable - treat HTN as above - feels better today, unsteady walking, PT eval - pos Ucx, on abx per primary Pos troponin - flat trend 0.13->0.14, EKG unchanged from prior, unlikely ACS - likely demand in setting of HTN CAD - s/p CABG (ROSENBERG-LAD, SVG-D1 2000), EDD to ROSENBERG-LAD and staged EDD to OM1 2011, RPDA stent 2013 with stable grafts in 2014 - continue statin and plavix - no sign ACS as above h/o TIA - on plavix - CT head no acute process PVD - continue plavix, statin DM - uncontrolled CKD - Cr 1.8, last in clinic 1.7 10/2017 DC TELEMETRY
--- NOTE | 2018-02-12 13:03 | DS ---
Physical Examination Vital Signs: Vital Signs Temperature 36.8 C 02/12/18 08:23 Pulse Rate 59 L 02/12/18 08:23 Respiratory Rate 18 02/12/18 08:23 Blood Pressure 114/49 L 02/12/18 08:23 O2 Sat by Pulse Oximetry (%) 96 02/12/18 08:23 Constitutional: Yes: Well Nourished, No Distress, Calm Cardiovascular: Yes: Regular Rate and Rhythm. No: Gallop, Murmur, Rub Respiratory: Yes: Regular, CTA Bilaterally. No: Rales, Rhonchi, Wheezes Gastrointestinal: Yes: Normal Bowel Sounds, Soft. No: Distention, Tenderness Extremities: Yes: WNL Edema: No Labs: CBC, BMP 02/12/18 05:30 02/12/18 05:30 Discharge Summary Reason For Visit: ELEVATED TROPONIN LEVEL,WEAKNESS Current Active Problems Chronic UTI (Acute) Elevated troponin (Acute) T2DM (type 2 diabetes mellitus) (Acute) Weakness (Acute) Hospital Course: (1) HTN (hypertension) Code(s): I10 - ESSENTIAL (PRIMARY) HYPERTENSION (2) Elevated troponin Code(s): R74.8 - ABNORMAL LEVELS OF OTHER SERUM ENZYMES (3) T2DM (type 2 diabetes mellitus) Code(s): E11.9 - TYPE 2 DIABETES MELLITUS WITHOUT COMPLICATIONS (4) Weakness Code(s): R53.1 - WEAKNESS (5) CAD (coronary artery disease) Code(s): I25.10 - ATHSCL HEART DISEASE OF [place] CORONARY ARTERY W/O ANG PCTRS (6) CKD (chronic kidney disease) Code(s): N18.9 - CHRONIC KIDNEY DISEASE, UNSPECIFIED Qualifiers: Chronic kidney disease stage: stage 3 (moderate) Qualified Code(s): N18.3 - Chronic kidney disease, stage 3 (moderate) (7) Dyslipidemia Code(s): E78.5 - HYPERLIPIDEMIA, UNSPECIFIED (8) Osteoarthritis of knee Code(s): M17.9 - OSTEOARTHRITIS OF KNEE, UNSPECIFIED Qualifiers: Osteoarthritis type: primary Laterality: right Qualified Code(s): M17.11 - Unilateral primary osteoarthritis, right knee Ms Ramos is a pleasant 82 year old female who came in with epigastric pain and was found to have uncontrolled hypertension and elevated troponins. She was admitted to telemetry and cardiology was consulted. She was on coreg but bradycardia was noted and this was changed to amlodipine. Her amlodipine was uptitrated to 10mg daily. Her blood pressure is now controlled. She was also noted to have elevated troponins but this was in the light of CKD which remained stable. Her troponin also remained stable and this elevation was not thought to be due to ACS per cardiology. She was continued on her home regimen. She is currently stable for discharge to SNF for continued rehabilitation. Discussed with Dr Forrester who agrees patient is safe for discharge from a cardiac standpoint. 32 minutes spent in preparation of this discharge. Condition: Stable - Instructions Diet, Activity, Other Instructions: diabetic diet. Up with assistance, further activity per PT at SNF. Referrals: Deric Hua MD [Primary Care Provider] - Disposition: [facility] - Home Medications Comprehensive Discharge Medication List: Ambulatory Orders Cephalexin [Keflex] 250 mg PO BID 02/08/18 Clopidogrel Bisulfate [Plavix] 75 mg PO DAILY 02/08/18 Insulin Aspart [Novolog Flexpen] 40 unit SQ TID 02/08/18 Insulin Detemir [Levemir Flextouch] 40 unit SQ HS 02/08/18 Rosuvastatin [Crestor -] 20 mg PO DAILY 02/08/18 Sitagliptin Phosphate [Januvia] 25 mg PO DAILY 02/08/18 Amlodipine Besylate [Norvasc -] 10 mg PO DAILY tablet 02/12/18 Insulin (Levemir) [Levemir Vial] 20 units SQ HS units 02/12/18 Insulin Sliding Scale [Novolog Vial Sliding Scale -] 1 vial SQ TIDAC units
== END 2018-02-12 15:24 | DRG 292 ==
LOC: JER 16:59 → JERBED 19:58 → J4W 22:36
PROVIDERS: ADMIT Internal Medicine; ATTEND Internal Medicine
DX: I13.0 Hypertensive heart and chronic kidney disease with heart failure and stage 1 through stage 4 chronic kidney disease, or unspecified chronic kidney disease (principal); N39.0 Urinary tract infection, site not specified; I24.8 Other forms of acute ischemic heart disease; R53.1 Weakness; E78.00 Pure hypercholesterolemia, unspecified; I25.2 Old myocardial infarction; Z79.4 Long term (current) use of insulin; I25.10 Atherosclerotic heart disease of native coronary artery without angina pectoris; I50.9 Heart failure, unspecified; K21.9 Gastro-esophageal reflux disease without esophagitis; Z98.61 Coronary angioplasty status; E53.8 Deficiency of other specified B group vitamins; M54.5 Low back pain; Z95.1 Presence of aortocoronary bypass graft; E11.51 Type 2 diabetes mellitus with diabetic peripheral angiopathy without gangrene; E11.22 Type 2 diabetes mellitus with diabetic chronic kidney disease; Z86.73 Personal history of transient ischemic attack (TIA), and cerebral infarction without residual deficits; E11.65 Type 2 diabetes mellitus with hyperglycemia; Z95.5 Presence of coronary angioplasty implant and graft; N18.3 Chronic kidney disease, stage 3 (moderate); E66.9 Obesity, unspecified; M17.11 Unilateral primary osteoarthritis, right knee; Z68.33 Body mass index [BMI] 33.0-33.9, adult
CPT/HCPCS: 36415; 70450-TC; 71045-TC-FY; 74176-TC; 80048; 80053; 80061; 81003; 81015; 82550; 82962; 83036; 83690; 83721; 83735; 83880; 84100; 84484; 85025; 85610; 87086; 87186; 93005; 93010; 97116-GP; 97161-GP; 99283-25

== ENCOUNTER 2018-03-20 12:53 | Emergency (ER) | payer OTHER, MEDICARE ==
[2018-03-20 13:00] VITALS: BMI 33.8
[2018-03-20 14:44] LABS: BASO % 0.8 % (0-2.0); EOS % 1.9 % (0-4.5); HEMATOCRIT 36.5 % (32.4-45.2); HEMOGLOBIN 11.9 GM/dL (10.7-15.3); LYMPH % 29.9 % (8-40); MCH 29.9 pg (25.7-33.7); MCHC 32.6 g/dl (32.0-36.0); MEAN CELL VOLUME 91.8 fl (80-96); MONO % 7.3 % (3.8-10.2); NEUT % 60.1 % (42.8-82.8); PLATELET COUNT 237 K/MM3 (134-434); RBC 3.98 M/mm3 (3.60-5.2); RDW 13.9 % (11.6-15.6)
[2018-03-20 14:52] VITALS: PULSE 65
[2018-03-20 15:27] LABS: ALK PHOS 78 U/L (45-117); ANION GAP 9 MMOL/L (8-16); BILIRUBIN,TOTAL 0.3 mg/dL (0.2-1); BLOOD UREA NITROGEN 33 mg/dL (7-18); CALCIUM 8.6 mg/dL (8.5-10.1); CHLORIDE 106 mmol/L (98-107); CO2 25 mmol/L (21-32); CREATININE 1.4 mg/dL (0.55-1.3); GLUCOSE,RANDOM 191 mg/dL (74-106); SGOT/AST 24 U/L (15-37); SGPT/ALT 24 U/L (13-61); SODIUM 140 mmol/L (136-145)
--- NOTE | 2018-03-20 15:36 | EKG ---
Test Reason : Blood Pressure : / mmHG Vent. Rate : 068 BPM Atrial Rate : 068 BPM P-R Int : 244 ms QRS Dur : 078 ms QT Int : 410 ms P-R-T Axes : 063 025 092 degrees QTc Int : 435 ms SINUS RHYTHM WITH 1ST DEGREE A-V BLOCK T WAVE ABNORMALITY, CONSIDER LATERAL ISCHEMIA ABNORMAL ECG WHEN COMPARED WITH ECG OF 08-FEB-2018 17:03, DC INTERVAL HAS INCREASED Confirmed by DEMAR LAND, PATRIC ([id number]) on 03/20/2018 3:36:25 PM Referred By: Confirmed By:PATRIC BENZ MD
--- NOTE | 2018-03-20 16:13 | PDOC ---
History of Present Illness - General History Source: Patient Exam Limitations: No Limitations - History of Present Illness Initial Comments: 03/20/18 16:28 The patient is a 82 year old female, with a significant PMH of CVA, anemia, OK, CHF, IDDM,HTN,HDL and chronic UTIs, who presents to the emergency department complaining of not feeling well since this morning. The patient states she took her antibiotics this morning when she experienced diffused generalized pain throughout her body. She reports pain has decreased upon arrival to the ER but currently experiences right lower extremity weakness.The patient denies chest pain, shortness of breath, headache and dizziness.Denies fever, chills, nausea, vomit, diarrhea and constipation. Denies dysuria, frequency, urgency and hematuria. Allergies: codeine Past surgical history: Cardiac bypass 2010, endarterectomy, Cholecystectomy Social history: None reported PCP: None reported <Arnol Lee - Last Filed: 03/20/18 16:27> <Alfredo Roach - Last Filed: 03/20/18 17:21> - General Chief Complaint: Blood Pressure Problem Stated Complaint: WEAKNESS Time Seen by Provider: 03/20/18 13:44 Past History <Arnol Lee - Last Filed: 03/20/18 16:27> - Past Medical History Anemia: Yes Asthma: No Cancer: No Cardiac Disorders: Yes (OK) CVA: Yes (CVA 22 YRS AGO - (R)SIDED WEAKNESS) COPD: No CHF: Yes Dementia: No Diabetes: Yes (IDDM) GI Disorders: No Disorders: Yes (CHRONIC UTI'S) HTN: Yes Hypercholesterolemia: Yes Liver Disease: No Seizures: No Thyroid Disease: No - Surgical History Abdominal Surgery: No Appendectomy: No Cardiac Surgery: Yes (BYPASS 2010, ENDARDERECTOMY, 2 STENTS) Cholecystectomy: Yes Lung Surgery: No Neurologic Surgery: No Orthopedic Surgery: No - Suicide/Smoking/Psychosocial Hx Smoking Status: No Smoking History: Never smoked Have you smoked in the past 12 months: No Number of Cigarettes Smoked Daily: 0 Hx Alcohol Use: No Drug/Substance Use Hx: No Substance Use Type: None Hx Substance Use Treatment: No <Alfredo Roach - Last Filed: 03/20/18 17:21> - Past Medical History Allergies/Adverse Reactions: Allergies Allergy/AdvReac Type Severity Reaction Status Date / Time codeine [Codeine] Allergy Verified 03/20/18 12:57 Home Medications: Ambulatory Orders Cephalexin [Keflex] 250 mg PO BID 02/08/18 Clopidogrel Bisulfate [Plavix] 75 mg PO DAILY 02/08/18 Insulin Aspart [Novolog Flexpen] 40 unit SQ TID 02/08/18 Insulin Detemir [Levemir Flextouch] 40 unit SQ HS 02/08/18 Rosuvastatin [Crestor -] 20 mg PO HS 02/08/18 Sitagliptin Phosphate [Januvia] 25 mg PO HS 02/08/18 Insulin (Levemir) [Levemir Vial] 20 units SQ HS units 02/12/18 Insulin Sliding Scale [Novolog Vial Sliding Scale -] 1 vial SQ TIDAC units Amlodipine Besylate [Norvasc -] 10 mg PO BID 03/20/18 Review of Systems - Review of Systems Able to Perform ROS?: Yes Comments:: 03/20/18 16:31 CONSTITUTIONAL: No fever, no chills, no fatigue EYES: No visual changes ENT: No ear pain, no sore throat CARDIOVASCULAR: No chest pain, no palpitations RESPIRATORY: No cough, no SOB GI: No abdominal pain, no nausea, no vomiting, no constipation, no diarrhea GENITOURINARY: No dysuria, no frequency, no hematuria MUSCULOSKELETAL: +Right lower extremity weakness. SKIN: No rash NEURO: No headache <Arnol Lee - Last Filed: 03/20/18 16:27> *Physical Exam - Vital Signs Last Vital Signs Temp Pulse Resp BP Pulse Ox 97.6 F 65 20 143/57 L 97 03/20/18 12:59 03/20/18 13:51 03/20/18 13:51 03/20/18 13:51 03/20/18 13:51 - Physical Exam Comments: 03/20/18 16:32 CONSTITUTIONAL: Morbid obese. b Well-appearing; well-nourished; in no apparent distress HEAD: Normocephalic; atraumatic EYES: PERRL; EOM intact ENMT: External appears normal; normal oropharynx NECK: Supple; non-tender; no cervical lymphadenopathy CARD: Normal S1, S2; no murmurs, rubs, or gallops RESP: Normal chest excursion with respiration; breath sounds clear and equal bilaterally; no wheezes, rhonchi, or rales ABD: Soft, non-distended; non-tender; no palpable organomegaly, no palpable hernias EXT: +Right lower extremity weakness. SKIN: Warm, dry, no rash NEURO: No focal neurological deficiencies. <Arnol Lee - Last Filed: 03/20/18 16:27> - Vital Signs Last Vital Signs Temp Pulse Resp BP Pulse Ox 97.6 F 65 20 143/57 L 97 03/20/18 12:59 03/20/18 13:51 03/20/18 13:51 03/20/18 13:51 03/20/18 13:51 <Alfredo Roach - Last Filed: 03/20/18 17:21> ED Treatment Course - LABORATORY CBC & Chemistry Diagram: 03/20/18 14:32 03/20/18 14:32 - ADDITIONAL ORDERS Additional order review: Laboratory Results 03/20/18 14:32 Sodium 140 Potassium 5.0 Chloride 106 Carbon Dioxide 25 Anion Gap 9 BUN 33 H Creatinine 1.4 H Creat Clearance w eGFR 36.00 Random Glucose 191 H Calcium 8.6 Total Bilirubin 0.3 AST 24 ALT 24 Alkaline Phosphatase 78 Creatine Kinase 53 Troponin I 0.17 H Total Protein 6.0 L Albumin 3.0 L 03/20/18 14:32 RBC 3.98 MCV 91.8 MCHC 32.6 RDW 13.9 MPV 10.0 Neutrophils % 60.1 Lymphocytes % 29.9 Monocytes % 7.3 Eosinophils % 1.9 Basophils % 0.8 <Arnol Lee - Last Filed: 03/20/18 16:27> - LABORATORY CBC & Chemistry Diagram: 03/20/18 14:32 03/20/18 14:32 - ADDITIONAL ORDERS Additional order review: Laboratory Results 03/20/18 14:32 Sodium 140 Potassium 5.0 Chloride 106 Carbon Dioxide 25 Anion Gap 9 BUN 33 H Creatinine 1.4 H Creat Clearance w eGFR 36.00 Random Glucose 191 H Calcium 8.6 Total Bilirubin 0.3 AST 24 ALT 24 Alkaline Phosphatase 78 Creatine Kinase 53 Troponin I 0.17 H Total Protein 6.0 L Albumin 3.0 L 03/20/18 14:32 RBC 3.98 MCV 91.8 MCHC 32.6 RDW 13.9 MPV 10.0 Neutrophils % 60.1 Lymphocytes % 29.9 Monocytes % 7.3 Eosinophils % 1.9 Basophils % 0.8 <Alfredo Roach - Last Filed: 03/20/18 17:21> Medical Decision Making - Medical Decision Making 03/20/18 16:21 Patient is an 82-year-old female with history of hypertension, diabetes, hyperlipidemia who presents to the ER after feeling unwell for short period of time shortly after consuming a regular prescribed Norvasc. Patient reports diffuse body pain which patient describes literally from head to toe. Patient's blood pressure was also noted to be elevated by visiting nurse service and advice to go to the ER. In the ER, patient is asymptomatic with a normal blood pressure. EKG reveals normal sinus with first-degree AV block and inverted T waves in 1 and aVL which are unchanged from previous EKG dated January 2018. CBC and CMP within normal limit. Cardiac profile is indeterminate. Will obtain a two-hour cardiac profile to trend. If unchanged are decreasing, we'll discharge. 03/20/18 17:18 ALLERGIES CPKs decreasing. Troponin is unchanged. I suspect indeterminate troponins related to underlying renal insufficiency. I do not suspect ACS. Will discharge. <Alfredo Roach - Last Filed: 03/20/18 17:21> *DC/Admit/Observation/Transfer - Attestations Scribe Attestion: 03/20/18 16:34 Documentation prepared by Arnol Lee, acting as clinical medical transcriptionist for Alfredo Roach MD. <Arnol Lee - Last Filed: 03/20/18 16:27> - Attestations Physician Attestion: 03/20/18 16:19 The documentation was prepared by the scribe under my direct supervision. I have reviewed the documentation which correctly represents the findings, medical decision-making and critical action taken by me. <Alfredo Roach - Last Filed: 03/20/18 17:21> Diagnosis at time of Disposition: Pain Hypertension Qualifiers: Hypertension type: unspecified Qualified Code(s): I10 - Essential (primary) hypertension - Discharge Dispostion Disposition: HOME Condition at time of disposition: Stable - Referrals Referrals: Deric Hua MD [Staff Physician] - - Patient Instructions Printed Discharge Instructions: DI for High Blood Pressure
[2018-03-20 16:50] VITALS: BP 154/48; TEMP 98.1
== END 2018-03-20 17:45 | disposition home or self-care (01) ==
LOC: JER 12:53
DX: I10 Essential (primary) hypertension (principal); E11.9 Type 2 diabetes mellitus without complications; E78.5 Hyperlipidemia, unspecified
CPT/HCPCS: 36415; 80053; 82550; 84484; 85025; 93005; 93010; 99283-25

== ENCOUNTER 2018-10-22 15:51 | Inpatient (IN) | payer OTHER, MEDICARE ==
--- NOTE | 2018-10-22 18:15 | PDOC ---
Documentation entered by Treasure Caraballo SCRIBE, acting as scribe for Shannan Prasad MD. Shannan Prasad MD: This documentation has been prepared by the Ilya james Adrianna, SCRIBE, under my direction and personally reviewed by me in its entirety. I confirm that the documentation accurately reflects all work, treatment, procedures, and medical decision making performed by me. History of Present Illness - General Chief Complaint: Edema Stated Complaint: SENT BY PCP\\SWOLLEN LEGS\\WEAKNESS Time Seen by Provider: 10/22/18 17:13 - History of Present Illness Initial Comments: The patient is an 83 year old female, with a significant PMH of CAD (s/p PTCI 2011), CHF (stopped taking Lasix over a year ago), HTN, HLD, [place] (2010), CVA (R. side), GERD, Renal Insufficiency, B12 Deficiency, Chronic low back pain, OA ( left knee severe), spinal stenosis and DM , who presents to the emergency department today complaining of bilateral lower extremity edema for months, and bilateral lower extremity itching for 1 month. Patient notes she has had chronic bilateral lower extremity edema for months since she stopped taking Lasix (secondary to renal insufficiency). She reports that her legs feel tight, and swelling has caused her feet to not fit in her shoes. Patient endorses conversational dyspnea, and notes she does not sleep lying flat down because it makes her feel dizzy. She notes she went to [place] 4 months ago, and returned last month. Patient complains of anterior bilateral lower extremity itching and redness since she returned from her trip. She endorses lower extremity pain that is exacerbated with ambulation, but this is secondary to her knee arthritis. The patient denies chest pain and headache. Denies fever, chills, nausea, vomit, diarrhea and constipation. Denies dysuria, frequency, urgency and hematuria. Allergies: Codeine Past surgical history: PTCI, 4 cardiac stents, cholecystectomy Social history: None reported PCP: Dr. Deric Hua 10/22/18 17:38 Past History - Past Medical History Allergies/Adverse Reactions: Allergies Allergy/AdvReac Type Severity Reaction Status Date / Time codeine [Codeine] Allergy Verified 03/20/18 12:57 Home Medications: Ambulatory Orders Cephalexin [Keflex] 250 mg PO BID 02/08/18 Clopidogrel Bisulfate [Plavix] 75 mg PO DAILY 02/08/18 Insulin Aspart [Novolog Flexpen] 40 unit SQ TID 02/08/18 Insulin Detemir [Levemir Flextouch] 40 unit SQ HS 02/08/18 Rosuvastatin [Crestor -] 20 mg PO HS 02/08/18 Sitagliptin Phosphate [Januvia] 25 mg PO HS 02/08/18 Insulin (Levemir) [Levemir Vial] 20 units SQ HS units 02/12/18 Insulin Sliding Scale [Novolog Vial Sliding Scale -] 1 vial SQ TIDAC units Amlodipine Besylate [Norvasc -] 10 mg PO BID 03/20/18 Anemia: Yes Asthma: No Cancer: No Cardiac Disorders: Yes ([place]) CVA: Yes (CVA 22 YRS AGO - (R)SIDED WEAKNESS) COPD: No CHF: Yes Dementia: No Diabetes: Yes (IDDM) GI Disorders: No Disorders: Yes (CHRONIC UTI'S) HTN: Yes Hypercholesterolemia: Yes Liver Disease: No Seizures: No Thyroid Disease: No - Surgical History Abdominal Surgery: No Appendectomy: No Cardiac Surgery: Yes (BYPASS 2011, ENDARDERECTOMY, 2 STENTS) Cholecystectomy: Yes Lung Surgery: No Neurologic Surgery: No Orthopedic Surgery: No - Immunization History Immunization Up to Date: No - Suicide/Smoking/Psychosocial Hx Smoking Status: No Smoking History: Never smoked Have you smoked in the past 12 months: No Number of Cigarettes Smoked Daily: 0 Information on smoking cessation initiated: No Hx Alcohol Use: No Drug/Substance Use Hx: No Substance Use Type: None Hx Substance Use Treatment: No Review of Systems - Review of Systems Comments:: GENERAL/CONSTITUTIONAL: No fever or chills. No weakness. HEAD, EYES, EARS, NOSE AND THROAT: No change in vision. No ear pain or discharge. No sore throat. CARDIOVASCULAR: +Conversational dyspnea. No chest pain. RESPIRATORY: No cough, wheezing, or hemoptysis. GASTROINTESTINAL: No nausea, vomiting, diarrhea or constipation. GENITOURINARY: No dysuria, frequency, or change in urination. MUSCULOSKELETAL: +Bilateral lower extremity edema and "tightness." +Bilateral lower extremity pain with ambulation, secondary to knee arthritis. No neck or back pain. SKIN: No rash NEUROLOGIC: +Dizziness when lying flat. No headache, vertigo, loss of consciousness, or change in strength/sensation. ENDOCRINE: No increased thirst. No abnormal weight change. HEMATOLOGIC/LYMPHATIC: No anemia, easy bleeding, or history of blood clots. ALLERGIC/IMMUNOLOGIC: +Bilateral lower extremity itching and redness. 10/22/18 17:41 *Physical Exam - Vital Signs Last Vital Signs Temp Pulse Resp BP Pulse Ox 98.1 F 68 16 149/52 L 97 10/22/18 16:06 10/22/18 16:06 10/22/18 16:06 10/22/18 16:06 10/22/18 16:06 - Physical Exam Comments: GENERAL: The patient is in no acute distress. HEAD: Normal with no signs of trauma. EYES: PERRLA, EOMI, sclera anicteric, conjunctiva clear. ENT: Ears normal, nares patent, oropharynx clear without exudates. Moist mucous membranes. NECK: Normal range of motion, supple without lymphadenopathy, JVD, or masses. LUNGS: Breath sounds equal, clear to auscultation bilaterally. No wheezes, and no crackles. HEART:Regular rate and rhythm, normal S1 and S2 without murmur, rub or gallop. ABDOMEN: Soft, nontender, normoactive bowel sounds. No guarding, no rebound. No masses palpable. EXTREMITIES: +4+ pitting edema of bilateral lower extremities. +Educreations to the anterior surface of the bilateral lower extremities. No clubbing or cyanosis. NEUROLOGICAL: Cranial nerves II through XII grossly intact. Normal speech. No focal neurological deficits. MUSCULOSKELETAL: Back non-tender to palpation, no CVA tenderness SKIN: +Educreations to the anterior surface of the bilateral lower extremities. No cellulitic changes or warmth. Warm, Dry, normal turgor. 10/22/18 17:51 ED Treatment Course - LABORATORY CBC & Chemistry Diagram: 10/22/18 17:57 10/22/18 17:57 - RADIOLOGY Radiology Studies Ordered: Category Date Time Status CHEST X-RAY PORTABLE* [RAD] Stat Radiology 10/22/18 17:13 Ordered Radiograph Interpretation: EXAM#: TYPE/EXAM: RESULT: [id number] RAD/CHEST X-RAY PORTABLE* Chest: Chest pain Impression: No significant change since prior study. No acute chest pathology. Reported By: Antonio May MD 10/22/18 19:08 EXAM#: TYPE/EXAM: RESULT: [id number] US/DUPLEX VASCUL US-2LEGS Bilateral lower extremity venous ultrasound Clinical information given: evaluate for DVT Impression: No DVT is identified involving either leg. Please see above. Reported By: Misael Rogers MD 10/22/18 19:09 10/22/18 21:00 Medical Decision Making - Medical Decision Making 10/22/18 17:17 82F h/o CKD, HTN, HLD, CAD s/p CABG (ROSENBERG-LAD, SVG-D1 2000), EDD to ROSENBERG-LAD and staged EDD to OM1 2011, RPDA stent 2013 with stable grafts in 2013, h/o TIA , PVD, uncontrolled DM p/w worsening lower extremity edema Pt was previously on lasix but has been off of this for almost 1 year Pt is concerned because her legs have been so tight and itchy She saw dr Forrester today who told her that she is fluid overloaded and needs to come in to the hospital Pt denies chest pain Pt has noted exertional and conversational dyspnea No fevers or chills 10/22/18 17:48 Will do: Labs CXR Duplex 10/22/18 18:13 EKG - NSR rate of 68 bpm, axis nml, intervals nml, no st elevation or depression , t waves upright 10/22/18 19:52 Laboratory Tests 10/22/18 10/22/18 10/22/18 17:57 17:57 17:57 WBC 8.4 Hgb 13.0 Hct 40.1 Plt Count 281 INR 0.92 Sodium 140 Potassium 5.0 Chloride 104 Carbon Dioxide 25 BUN 33 H Creatinine 1.8 H Random Glucose 287 H Creatine Kinase 43 Troponin I 0.02 B-Natriuretic Peptide 1044.3 H Duplex negative for DVT Creatinine slightly elevated 10/22/18 20:06 Lasix 40mg IV given *DC/Admit/Observation/Transfer Diagnosis at time of Disposition: CHF (congestive heart failure) Qualifiers: Heart failure type: unspecified Heart failure chronicity: acute on chronic Qualified Code(s): I50.9 - Heart failure, unspecified - Discharge Dispostion Condition at time of disposition: Stable Decision to Admit order: Yes - Referrals Referrals: Deric Hua MD [Primary Care Provider] - - Patient Instructions - Post Discharge Activity
[2018-10-22 18:46] LABS: BASO % 0.9 % (0-2.0); EOS % 7.4 % (0-4.5); HEMATOCRIT 40.1 % (32.4-45.2); LYMPH % 27.9 % (8-40); MCH 30.6 pg (25.7-33.7); MCHC 32.5 g/dl (32.0-36.0); MEAN CELL VOLUME 94.3 fl (80-96); MEAN PLT VOLUME 10.7 fl (7.5-11.1); MONO % 7.7 % (3.8-10.2); NEUT % 56.1 % (42.8-82.8); PLATELET COUNT 281 K/MM3 (134-434); RBC 4.25 M/mm3 (3.60-5.2); RDW 14.4 % (11.6-15.6); WHITE BLOOD COUNT 8.4 K/mm3 (4.0-10.0)
[2018-10-22 18:59] LABS: INR 0.92 (0.83-1.09); PROTHROMBIN TIME (PATIENT) 10.8 SEC (9.7-13.0)
[2018-10-22 19:07] LABS: ALBUMIN 3.4 g/dl (3.4-5.0); ALK PHOS 94 U/L (45-117); ANION GAP 11 MMOL/L (8-16); BILIRUBIN,TOTAL 0.3 mg/dL (0.2-1); BLOOD UREA NITROGEN 33 mg/dL (7-18); CALCIUM 9.1 mg/dL (8.5-10.1); CHLORIDE 104 mmol/L (98-107); CO2 25 mmol/L (21-32); CREATININE 1.8 mg/dL (0.55-1.3); GLUCOSE,RANDOM 287 mg/dL (74-106); MAGNESIUM 2.6 mg/dL (1.8-2.4); N-TERMINAL BNP 1044.3 pg/ml (5-450); SGOT/AST 21 U/L (15-37); SGPT/ALT 23 U/L (13-61); SODIUM 140 mmol/L (136-145); TOT PROT 6.7 g/dl (6.4-8.2)
[2018-10-22] MEDS ORDERED: FUROSEMIDE 40 MG/4 ML INJECTABLE VIAL IVPUSH ONE ×2 (20:04→21:48)
[2018-10-22] MEDS ORDERED: ACETAMINOPHEN 1000 MG/100 ML VIAL (NON FORMULARY) IVPB ONE (20:10)
--- NOTE | 2018-10-22 20:16 | PN ---
Teaching Attending Note Name of Resident: Rosalina Brown ATTENDING PHYSICIAN STATEMENT I saw and evaluated the patient. I reviewed the resident's note and discussed the case with the resident. I agree with the resident's findings and plan as documented. SUBJECTIVE: Patient is an 83 year old woman with a PMH of CAD (s/p PTCI 2011), CHF (stopped taking Lasix over a year ago), exposure to second-hand smoke, HTN, HLD, [place] (2010 ), CVA (R. side), GERD, ?CKD, B12 Deficiency, Chronic low back pain, OA (left knee severe), spinal stenosis and NIDDM , who presents to the ER today complaining of bilateral lower extremity edema for months, and bilateral lower extremity itching for 1 month. Patient notes she has had chronic bilateral lower extremity edema for months since she stopped taking Lasix (secondary to renal insufficiency). She reports that her legs feel tight, and swelling has caused her feet to not fit in her shoes. Patient has conversational dyspnea, and notes she does not sleep lying flat because it makes her feel dizzy. She notes she went to [place] 4 months ago, and returned last month. Patient complains of anterior bilateral lower extremity itching and redness since she returned from her trip. She has lower extremity pain that is exacerbated with ambulation, but this is secondary to her knee arthritis. The patient denies chest pain, headache, fever, chills, nausea, vomiting, diarrhea, constipation, dysuria, frequency, urgency or hematuria. OBJECTIVE: Alert Vital Signs Period Temp Pulse Resp BP Sys/Mckeon Pulse Ox Last 24 Hr 98.1 F 68 16 149/52 96-97 HEENT: No Jaundice, eye redness or discharge, PERRLA, EOMI. Normocephalic, atraumatic. External ears are normal and hearing is grossly intact. No nasal discharge. Neck: Supple, nontender. No palpable adenopathy or thyromegaly. No JVD Chest: Good effort. Clear to auscultation and percussion. Heart: Regular. No S3, rub; 2/6 ANDRÉS. Abdomen: Not distended, soft, nontender and no HSM. No rebound or guarding. Normal bowel sounds. Ext: Peripheral pulses intact. Leg edema. Skin: Warm and dry. No petechiae, ecchymosis. Excoriations on both legs and stigmata of pruritus. Neuro: Alert. Oriented x3. CN 2-12 grossly intact. Sensation grossly intact in all four extremities and DTR are symmetric. Psych: Appropriate mood and affect. Good insight. Home Medications Medication Instructions Recorded Cephalexin [Keflex] 250 mg PO BID 02/08/18 Clopidogrel Bisulfate [Plavix] 75 mg PO DAILY 02/08/18 Insulin Aspart [Novolog Flexpen] 40 unit SQ TID 02/08/18 Insulin Detemir [Levemir Flextouch] 40 unit SQ HS 02/08/18 Rosuvastatin [Crestor -] 20 mg PO HS 02/08/18 Sitagliptin Phosphate [Januvia] 25 mg PO HS 02/08/18 Insulin (Levemir) [Levemir Vial] 20 units SQ HS units 02/12/18 Insulin Sliding Scale [Novolog 1 vial SQ TIDAC units 02/12/18 Vial Sliding Scale -] Amlodipine Besylate [Norvasc -] 10 mg PO BID 03/20/18 Abnormal Lab Results 10/22/18 10/22/18 17:57 17:57 Eosinophils % 7.4 H D BUN 33 H Creatinine 1.8 H Random Glucose 287 H Magnesium 2.6 H B-Natriuretic Peptide 1044.3 H ASSESSMENT AND PLAN: 1. CHF Exacerbation - Likely due to lack of effective diuresis and possibly suboptimal CHF regimen. No acute abnormality on CXR and EKG shows NSR with no significant ST-T wave changes. Initial troponin is negative. Will get an ECHO and give escalating doses of IV lasix to determine the effective dose; elevate legs at night, stop amlodipine, give Diovan, low salt diet, get daily standing weight and leg doppler. Ask miscellaneous machine operator if he is a candidate for Entresto or should we just add Carvedilol after the ECHO is done. Leg pruritus and eosinophilia may signal helminthic infection/filariasis - will send stool for Ova and Parasites and nocturnal blood smear for filariasis. Consult ID. 2. Uncontrolled DM For now, we will hold the home diabetes drugs and implement sliding scale insulin regimen. Provide comprehensive diabetes care with patient teaching and counseling about the importance of adherence to prescribed diabetes regimen, euglycemia, eye care and foot care. 3. CKD - Cause unclear. Needs basic nephrologic workup. Will consult nephrology and avoid nephrotoxic agents such as NSAIDS, aminoglycosides, contrast dyes and certain Alternative medicine products. 4. Obesity Counseled on the risks associated with obesity. Will provide patient all the necessary assistance, counseling and positive reinforcement to facilitate weight loss. Consult staging technician. 5. Hypertension - Stop amlodipine and give diovan. Nonpharmacologic measures to control hypertension like weight loss, salt restriction and exercise discussed. 6. DVT prophylaxis - Heparin 5000u sq tid. 7. Advance directives - Full code
[2018-10-22] MEDS ORDERED: FUROSEMIDE 40 MG/4 ML INJECTABLE VIAL ONE ×2 (20:40→22:39)
[2018-10-22] MEDS ORDERED: ACETAMINOPHEN INJECTION 100 ML IVPB ONE (20:40)
--- NOTE | 2018-10-22 22:00 | HP ---
<Rosalee Ferrer - Last Filed: 10/23/18 08:17> CHIEF COMPLAINT: PCP: HISTORY OF PRESENT ILLNESS: ER course was notable for: (1) (2) (3) Recent Travel: PAST MEDICAL HISTORY: PAST SURGICAL HISTORY: Social History: Smoking: Alcohol: Drugs: Family History: Allergies codeine [Codeine] Allergy (Verified 03/20/18 12:57) HOME MEDICATIONS: Home Medications Medication Instructions Recorded Cephalexin [Keflex] 250 mg PO BID 02/08/18 Clopidogrel Bisulfate [Plavix] 75 mg PO DAILY 02/08/18 Insulin Aspart [Novolog Flexpen] 20 unit SQ TID 02/08/18 Rosuvastatin [Crestor -] 20 mg PO HS 02/08/18 Sitagliptin Phosphate [Januvia] 75 mg PO DAILY 02/08/18 Amlodipine Besylate [Norvasc -] 10 mg PO DAILY 03/20/18 Insulin (Levemir) [Levemir Vial] 30 units SQ BID 10/23/18 REVIEW OF SYSTEMS CONSTITUTIONAL: Absent: fever, chills, diaphoresis, generalized weakness, malaise, loss of appetite, weight change HEENT: Absent: rhinorrhea, nasal congestion, throat pain, throat swelling, difficulty swallowing, mouth swelling, ear pain, eye pain, visual changes CARDIOVASCULAR: Absent: chest pain, syncope, palpitations, irregular heart rate, lightheadedness , peripheral edema RESPIRATORY: Absent: cough, shortness of breath, dyspnea with exertion, orthopnea, wheezing, stridor, hemoptysis GASTROINTESTINAL: Absent: abdominal pain, abdominal distension, nausea, vomiting, diarrhea, constipation, melena, hematochezia GENITOURINARY: Absent: dysuria, frequency, urgency, hesitancy, hematuria, flank pain, genital pain MUSCULOSKELETAL: Absent: myalgia, arthralgia, joint swelling, back pain, neck pain SKIN: Absent: rash, itching, pallor HEMATOLOGIC/IMMUNOLOGIC: Absent: easy bleeding, easy bruising, lymphadenopathy, frequent infections ENDOCRINE: Absent: unexplained weight gain, unexplained weight loss, heat intolerance, cold intolerance NEUROLOGIC: Absent: headache, focal weakness or paresthesias, dizziness, unsteady gait, seizure, mental status changes, bladder or bowel incontinence PSYCHIATRIC: Absent: anxiety, depression, suicidal or homicidal ideation, hallucinations. PHYSICAL EXAMINATION Vital Signs - 24 hr 06/09/0610/22/18 10/23/18 16:06 17:13 01:57 Temperature 98.1 F 97.6 F Pulse Rate 68 67 Respiratory 16 18 Rate Blood Pressure 149/52 L 147/54 L O2 Sat by Pulse 97 96 Oximetry (%) 10/23/18 04:15 Temperature 97.7 F Pulse Rate 82 Respiratory 20 Rate Blood Pressure 159/71 O2 Sat by Pulse 96 Oximetry (%) GENERAL: Awake, alert, and fully oriented, in no acute distress. HEAD: Normal with no signs of trauma. EYES: Pupils equal, round and reactive to light, extraocular movements intact, sclera anicteric, conjunctiva clear. No lid lag. EARS, NOSE, THROAT: Ears normal, nares patent, oropharynx clear without exudates. Moist mucous membranes. NECK: Normal range of motion, supple without lymphadenopathy, JVD, or masses. LUNGS: Breath sounds equal, clear to auscultation bilaterally. No wheezes, and no crackles. No accessory muscle use. HEART: Regular rate and rhythm, normal S1 and S2 without murmur, rub or gallop. ABDOMEN: Soft, nontender, not distended, normoactive bowel sounds, no guarding, no rebound, no masses. No hepatomegaly or splenomegaly. MUSCULOSKELETAL: Normal range of motion at all joints. No bony deformities or tenderness. No CVA tenderness. UPPER EXTREMITIES: 2+ pulses, warm, well-perfused. No cyanosis. No clubbing. No peripheral edema. LOWER EXTREMITIES: 2+ pulses, warm, well-perfused. No calf tenderness. No peripheral edema. NEUROLOGICAL: Cranial nerves II-XII intact. Normal speech. Normal gait. PSYCHIATRIC: Cooperative. Good eye contact. Appropriate mood and affect. SKIN: Warm, dry, normal turgor, no rashes or lesions noted, normal capillary refill. Laboratory Results - last 24 hr 10/22/18 10/22/18 10/22/18 17:57 17:57 17:57 WBC 8.4 RBC 4.25 Hgb 13.0 Hct 40.1 MCV 94.3 MCH 30.6 MCHC 32.5 RDW 14.4 Plt Count 281 MPV 10.7 Absolute Neuts (auto) 4.7 Neutrophils % 56.1 Lymphocytes % 27.9 Monocytes % 7.7 Eosinophils % 7.4 H D Basophils % 0.9 Nucleated RBC % 0 PT with INR 10.80 INR 0.92 Sodium 140 Potassium 5.0 Chloride 104 Carbon Dioxide 25 Anion Gap 11 BUN 33 H Creatinine 1.8 H Est GFR (CKD-EPI)AfAm 29.64 Est GFR (CKD-EPI)NonAf 25.58 POC Glucometer Random Glucose 287 H Calcium 9.1 Phosphorus Magnesium 2.6 H Total Bilirubin 0.3 AST 21 ALT 23 Alkaline Phosphatase 94 Creatine Kinase 43 Troponin I 0.02 B-Natriuretic Peptide 1044.3 H Total Protein 6.7 Albumin 3.4 10/22/18 10/23/18 10/23/18 22:47 05:45 06:20 WBC 7.6 RBC 3.89 Hgb 12.0 Hct 36.1 MCV 92.8 MCH 30.7 MCHC 33.1 RDW 14.4 Plt Count 268 MPV 10.3 Absolute Neuts (auto) 4.2 Neutrophils % 54.4 Lymphocytes % 27.8 Monocytes % 9.0 Eosinophils % 8.0 H Basophils % 0.8 Nucleated RBC % 0 PT with INR INR Sodium Potassium Chloride Carbon Dioxide Anion Gap BUN Creatinine Est GFR (CKD-EPI)AfAm Est GFR (CKD-EPI)NonAf POC Glucometer 382 259 Random Glucose Calcium Phosphorus Magnesium Total Bilirubin AST ALT Alkaline Phosphatase Creatine Kinase Troponin I B-Natriuretic Peptide Total Protein Albumin 10/23/18 10/23/18 06:20 06:20 WBC RBC Hgb Hct MCV MCH MCHC RDW Plt Count MPV Absolute Neuts (auto) Neutrophils % Lymphocytes % Monocytes % Eosinophils % Basophils % Nucleated RBC % PT with INR 11.40 INR 0.97 Sodium 140 Potassium 4.5 Chloride 105 Carbon Dioxide 26 Anion Gap 9 BUN 36 H Creatinine 1.9 H Est GFR (CKD-EPI)AfAm 27.77 Est GFR (CKD-EPI)NonAf 23.96 POC Glucometer Random Glucose 254 H Calcium 8.8 Phosphorus 4.4 Magnesium 2.5 H Total Bilirubin 0.3 AST 18 ALT 19 Alkaline Phosphatase 84 Creatine Kinase Troponin I B-Natriuretic Peptide Total Protein 5.9 L Albumin 3.0 L ASSESSMENT/PLAN: <Deric Sorto - Last Filed: 10/23/18 19:05> CHIEF COMPLAINT: Lower extremity swelling PCP: Dr. Deric Hua HISTORY OF PRESENT ILLNESS: Pt. is an 83 y.o. F w/ PMHx. of CHF(diastolic?), CKD (Stage 4), HTN, HLD, CAD( s/p CABG 2000, [place] 2010, 4 stents), PVD, OA, IDDM, or GERD presents with swollen painful legs that have been getting worse for the last 4 months however that has been getting significantly worse over the last 2 weeks. Pt. states that she has noticed that her lower extremities have become pruritic and red from scratching in addition to the increasing pain. Pt. states she has recently been to [place] to stay under the care of her daughter but denies seeing a physician in [place] because she wanted to wait to come back to [place] to see her doctors. Pt. states that she checks her blood sugar everyday and that it ranges between 59 and 300s, with her BG being 59 last week and 300s this morning. Pt. endorses feeing weak and states that she sometime does not have the energy to adult caregiver herself insulin. Pt denies taking her insulin last night. Pt. states that she cannot lie flat and that she feels dizzy when she does so as well as short of breath therefore she uses a recliner to sleep at night. Pt. walks with a cane at home and a walker outside. Pt. sttes that she was discontinued from her statin because "it made her muscles weak" and she fell hitting her head a few years ago. Pt. states that she has recurrent UTIs and has been on Prophylatic Kefflex for the last [address] Gallardo. Pt. endorses making about 2L of urine per day which she measures in her bedside commode. Pt. denies any fever, chills, nausea, vomiting, constipation, diarrhea , dysuria, hematuria, hematochezia, melena, abdominal pain, chest pain, headache , changes in vision, or numbness/tingling in extremities. ER course was notable for: (1)CXR, EKG (2)IV Lasix (3)Cardiology consult Recent Travel: Recently returned after a 4 month trip to [place] on September 26. PAST MEDICAL HISTORY: As above PAST SURGICAL HISTORY: [place]BMATTEO Social History: Smoking: Denies, however has 44 years of second hand smoke from Alcohol: Denies Drugs: Denies Family History: Denies cancer history, Father from [place], Mother has heart disease Allergies codeine [Codeine] Allergy (Verified 03/20/18 12:57) HOME MEDICATIONS: Home Medications Medication Instructions Recorded Cephalexin [Keflex] 250 mg PO BID 02/08/18 Clopidogrel Bisulfate [Plavix] 75 mg PO DAILY 02/08/18 Insulin Aspart [Novolog Flexpen] 40 unit SQ TID 02/08/18 Insulin Detemir [Levemir Flextouch] 40 unit SQ HS 02/08/18 Rosuvastatin [Crestor -] 20 mg PO HS 02/08/18 Sitagliptin Phosphate [Januvia] 25 mg PO HS 02/08/18 Insulin (Levemir) [Levemir Vial] 20 units SQ HS units 02/12/18 Insulin Sliding Scale [Novolog 1 vial SQ TIDAC units 02/12/18 Vial Sliding Scale -] Amlodipine Besylate [Norvasc -] 10 mg PO BID 03/20/18 REVIEW OF SYSTEMS As above PHYSICAL EXAMINATION Vital Signs - 24 hr 10/22/18 10/22/18 16:06 17:13 Temperature 98.1 F Pulse Rate 68 Respiratory 16 Rate Blood Pressure 149/52 L O2 Sat by Pulse 97 96 Oximetry (%) GENERAL: Awake, alert, and fully oriented, in moderate distress before Tylenol and then NAD shortly afterwards. HEAD: Normal with no signs of trauma. EYES: Extraocular movements intact, sclera anicteric, conjunctiva clear. EARS, NOSE, THROAT: Ears normal, nares patent, oropharynx clear without exudates. Moist mucous membranes. NECK: Normal range of motion, supple without lymphadenopathy, JVD, or masses. LUNGS: Breath sounds equal, clear to auscultation bilaterally. No wheezes, and no crackles. No accessory muscle use. HEART: Regular rate and rhythm, normal S1 and S2 with holosystolic murmur ABDOMEN: Soft, nontender, distended, normoactive bowel sounds, no guarding, no rebound, no masses. MUSCULOSKELETAL: Normal range of motion at all joints. No spinal or paraspinal tenderness. No CVA tenderness. UPPER EXTREMITIES: 2+ radial pulses, warm, well-perfused. No cyanosis. LOWER EXTREMITIES: 2+ pulses, warm, well-perfused. Diffuse lower extremity tenderness. 3+ edema. NEUROLOGICAL: Normal speech. Sensation equal bilaterally, reports residual right side weakness. Gait not assessed PSYCHIATRIC: Cooperative. Good eye contact. Appropriate mood and affect. SKIN: Warm, dry, normal turgor, no rashes or lesions noted, normal capillary refill. Laboratory Results - last 24 hr 10/22/18 10/22/18 10/22/18 17:57 17:57 17:57 WBC 8.4 RBC 4.25 Hgb 13.0 Hct 40.1 MCV 94.3 MCH 30.6 MCHC 32.5 RDW 14.4 Plt Count 281 MPV 10.7 Absolute Neuts (auto) 4.7 Neutrophils % 56.1 Lymphocytes % 27.9 Monocytes % 7.7 Eosinophils % 7.4 H D Basophils % 0.9 Nucleated RBC % 0 PT with INR 10.80 INR 0.92 Sodium 140 Potassium 5.0 Chloride 104 Carbon Dioxide 25 Anion Gap 11 BUN 33 H Creatinine 1.8 H Est GFR (CKD-EPI)AfAm 29.64 Est GFR (CKD-EPI)NonAf 25.58 Random Glucose 287 H Calcium 9.1 Magnesium 2.6 H Total Bilirubin 0.3 AST 21 ALT 23 Alkaline Phosphatase 94 Creatine Kinase 43 Troponin I 0.02 B-Natriuretic Peptide 1044.3 H Total Protein 6.7 Albumin 3.4 ASSESSMENT/PLAN: Pt. is an 83 y.o. F w/ PMHx. of CHF(diastolic?), CKD(Stage 4), HTN, HLD, CAD( s/ p CABG 2000, [place] 2010, 4 stents), PVD, OA, IDDM, or GERD presents with swollen painful legs that have been getting worse for the last 4 months however that has been getting significantly worse over the last 2 weeks. #Acute CHF exacerbation 2/2 volume overload with Lower extremity edema BNP: 1044, 3+ edema Given 40mg IV Lasix in ED, will give another 60mg IVP and titrate up as needed for adequate response. f/u Echo; Last Echo(2016) showed normal LV + RV fxn; E/A reversal, mild b/l atrial enlargement Strict Is & Os Daily Weights: currently 89 kgs was discharged at 84 kgs on last admission. Compression stockings Start Diovan 80mg as part of medication optimizations Consider starting Aldactone 1L Fluid restriction Duplex Negative #HTN stopped Norvasc as this can contribute to LE swelling start Diovan 80mg consider starting Entresto or Coreg as per CHF guidelines for ARB and BB in reducing morbidity and mortality #Uncontrolled IDDM hold oral medcations BGM ACHS ISS ACHS f/u A1c c/w Levemir, uptitrate as needed Pt. states that she takes 30 units at night of Levemir, 26 units of Novolog in AM, 30 units of Novolog at noon and 30 units Novolog at dinner time. #ULISES on CKD Likely component of cardiorenal syndrome will c/w Lasix to diurese despite elevated Cr. in order to facilitate renal perfusion Trend Cr. level f/u PTH level f/u Phosphorous levels #Eosinophillia consider ID consult and investigating for filariasis, and helminth infections as Pt. has recent travel history, though denies going to beach, going in the water, going to the pool or placing feet in sand. #FEN no IVF, 1L fluid restrction monitor electrolytes and replete as needed Na restricted/ Diabetic Diet #DVT Ppx. Hep SQ Visit type - Emergency Visit Emergency Visit: Yes ED Registration Date: 10/22/18 Care time: The patient presented to the Emergency Department on the above date and was hospitalized for further evaluation of their emergent condition. - New Patient This patient is new to me today: Yes Date on this admission: 10/22/18 - Critical Care Critical Care patient: No
[2018-10-22] MEDS ORDERED: INSULIN (NOVOLOG) ASPART 100 UNITS/ML 10ML VIAL ONE (22:39)
[2018-10-22] MEDS ORDERED: CEPHALEXIN MONOHYDRATE 250 MG CAPSULE (FP) ONE (22:39)
[2018-10-22] MEDS: CEPHALEXIN MONOHYDRATE 250 MG CAPSULE (FP) PO SCH (22:48)
[2018-10-22] MEDS: INSULIN SLIDING SCALE (NOVOLOG) 1 VIAL SQ SCH (22:52)
[2018-10-23] MEDS ORDERED: ACETAMINOPHEN 1000 MG/100 ML VIAL (NON FORMULARY) IVPB ONE (03:00)
[2018-10-23] MEDS ORDERED: ACETAMINOPHEN INJECTION 100 ML IVPB ONE (03:21)
[2018-10-23] MEDS: INSULIN SLIDING SCALE (NOVOLOG) 1 VIAL SQ SCH ×4 (06:43→21:37)
[2018-10-23] MEDS: HEPARIN NA (PORCINE) 5,000 UNITS/ML 1ML VIAL SQ SCH ×3 (06:44→21:37)
[2018-10-23 07:29] LABS: BASO % 0.8 % (0-2.0); HEMATOCRIT 36.1 % (32.4-45.2); LYMPH % 27.8 % (8-40); MCH 30.7 pg (25.7-33.7); MCHC 33.1 g/dl (32.0-36.0); MEAN CELL VOLUME 92.8 fl (80-96); MEAN PLT VOLUME 10.3 fl (7.5-11.1); NEUT % 54.4 % (42.8-82.8); PLATELET COUNT 268 K/MM3 (134-434); RBC 3.89 M/mm3 (3.60-5.2); RDW 14.4 % (11.6-15.6); WHITE BLOOD COUNT 7.6 K/mm3 (4.0-10.0)
--- NOTE | 2018-10-23 07:56 | PN ---
Physical Exam: SUBJECTIVE: Patient seen and examined resting in bed nad no acute events, afebrile, hemodynamically stable. denies sob , cough, orthopnea, cp, palpitations. denies ever having a sleep study OBJECTIVE: Vital Signs Period Temp Pulse Resp BP Sys/Mckeon Pulse Ox Last 24 Hr 97.6 F-98.1 F 67-82 16-20 147-159/52-71 96-97 GENERAL: The patient is awake, alert, and fully oriented, in no acute distress. HEAD: Normal with no signs of trauma. EYES: PERRL, extraocular movements intact, sclera anicteric, conjunctiva clear. No ptosis. ENT: moist mucous membranes. NECK: supple no jvd but hard to appreciate due to girth LUNGS: Breath sounds equal, clear to auscultation bilaterally HEART: rrr, loud systolic murmur best in r upper sternal boarder ABDOMEN: obese, Soft, nontender, nondistended, normoactive bowel sounds, no guarding, no rebound EXTREMITIES: 3 + b/l le edema up tp mid calf, erythema, some scabs on shins NEUROLOGICAL: Cranial nerves II through XII grossly intact. Normal speech, gait not observed. PSYCH: Normal mood, normal affect. SKIN: Warm, dry Laboratory Results - last 24 hr 10/22/18 10/22/18 10/22/18 17:57 17:57 17:57 WBC 8.4 RBC 4.25 Hgb 13.0 Hct 40.1 MCV 94.3 MCH 30.6 MCHC 32.5 RDW 14.4 Plt Count 281 MPV 10.7 Absolute Neuts (auto) 4.7 Neutrophils % 56.1 Lymphocytes % 27.9 Monocytes % 7.7 Eosinophils % 7.4 H D Basophils % 0.9 Nucleated RBC % 0 PT with INR 10.80 INR 0.92 Sodium 140 Potassium 5.0 Chloride 104 Carbon Dioxide 25 Anion Gap 11 BUN 33 H Creatinine 1.8 H Est GFR (CKD-EPI)AfAm 29.64 Est GFR (CKD-EPI)NonAf 25.58 POC Glucometer Random Glucose 287 H Calcium 9.1 Magnesium 2.6 H Total Bilirubin 0.3 AST 21 ALT 23 Alkaline Phosphatase 94 Creatine Kinase 43 Troponin I 0.02 B-Natriuretic Peptide 1044.3 H Total Protein 6.7 Albumin 3.4 10/22/18 10/23/1819 22:47 05:45 06:20 WBC 7.6 RBC 3.89 Hgb 12.0 Hct 36.1 MCV 92.8 MCH 30.7 MCHC 33.1 RDW 14.4 Plt Count 268 MPV 10.3 Absolute Neuts (auto) 4.2 Neutrophils % 54.4 Lymphocytes % 27.8 Monocytes % 9.0 Eosinophils % 8.0 H Basophils % 0.8 Nucleated RBC % 0 PT with INR INR Sodium Potassium Chloride Carbon Dioxide Anion Gap BUN Creatinine Est GFR (CKD-EPI)AfAm Est GFR (CKD-EPI)NonAf POC Glucometer 382 259 Random Glucose Calcium Magnesium Total Bilirubin AST ALT Alkaline Phosphatase Creatine Kinase Troponin I B-Natriuretic Peptide Total Protein Albumin Active Medications Generic Name Dose Route Start Last Admin Trade Name Keely PRN Reason Stop Dose Admin Cephalexin HCl 250 mg 10/22/18 22:00 10/22/18 22:48 Keflex - PO 250 mg BID JASMYN Administration Heparin Sodium (Porcine) 5,000 unit 10/23/18 06:00 10/23/18 06:44 Heparin - SQ 5,000 unit TID JASMYN Administration Insulin Aspart 1 vial 10/22/18 22:00 10/23/18 06:43 Novolog Vial Sliding Scale - SQ 6 units ACHS JASMYN Administration Protocol Lidocaine 1 patch 10/23/18 10:00 Lidoderm Patch - TP DAILY JASMYN Miscellaneous 1 each 10/23/18 22:00 Lidoderm Patch Removal MC DAILY@2200 JASMYN Valsartan 80 mg 10/23/18 10:00 Diovan - PO DAILY JASMYN ASSESSMENT/PLAN: This is an 83 yo F with PMH of HFPEF, CKD(Stage 4), HTN, HLD, CAD( s/p CABG 2000 , [place] 2010, 4 stents), PVD, OA, IDDM, or GERD presents with b/l LE edema weorsened over several weeks. Acute CHF exacerbation b/l LE edema HTN IDDM CKD Eosinophillia -BNP 1044 above baseline, cxr cephalization -nsvt on tele -clinically volume overloaded -s/p 100 mg IV lasix total last night -f/u tte; TTE 2016 showed normal LV + RV fxn; E/A reversal, mild b/l atrial enlargement -daily weights, Strict Is & Os -fluid restriction -on plavix, crestor, norvasc (unlikley cause of LE edema). started on valsartan 80 mg last night but cardiology would like to hold in light of renal fxn. -ask cardio about bb and aldactone. apparently patient has previously been bradycardic on coreg -up titrate arb and bb doses as tolerated to max dose. -continue lasix 60 d -f/u TFTs, a1c, lipid panel, tele monitoring -duplex negative for dvt -hold januvia, continue levemir 30 bid, add ISS ACHS -creat is at baseline -eosinophilia likely due to keflex Problem List - Problems (1) CHF exacerbation Code(s): I50.9 - HEART FAILURE, UNSPECIFIED (2) CHF (congestive heart failure) Code(s): I50.9 - HEART FAILURE, UNSPECIFIED Qualifiers: Heart failure type: diastolic Heart failure chronicity: acute on chronic Qualified Code(s): I50.33 - Acute on chronic diastolic (congestive) heart failure (3) Anemia Code(s): D64.9 - ANEMIA, UNSPECIFIED (4) CAD (coronary artery disease) Code(s): I25.10 - ATHSCL HEART DISEASE OF [place] CORONARY ARTERY W/O ANG PCTRS (5) CKD (chronic kidney disease) Code(s): N18.9 - CHRONIC KIDNEY DISEASE, UNSPECIFIED Qualifiers: Chronic kidney disease stage: stage 3 (moderate) Qualified Code(s): N18.3 - Chronic kidney disease, stage 3 (moderate) (6) Carotid atherosclerosis Code(s): I65.29 - OCCLUSION AND STENOSIS OF UNSPECIFIED CAROTID ARTERY (7) Chronic UTI Code(s): N39.0 - URINARY TRACT INFECTION, SITE NOT SPECIFIED (8) Diabetes mellitus Code(s): E11.9 - TYPE 2 DIABETES MELLITUS WITHOUT COMPLICATIONS (9) HTN (hypertension) Code(s): I10 - ESSENTIAL (PRIMARY) HYPERTENSION Qualifiers: Hypertension type: unspecified Qualified Code(s): I10 - Essential (primary ) hypertension Visit type - Emergency Visit Emergency Visit: Yes ED Registration Date: 10/22/18 Care time: The patient presented to the Emergency Department on the above date and was hospitalized for further evaluation of their emergent condition. - New Patient This patient is new to me today: Yes Date on this admission: 10/23/18 - Critical Care Critical Care patient: No - Discharge Referral Referred to [facility] Med P.C.: No
[2018-10-23 08:01] LABS: BILIRUBIN,TOTAL 0.3 mg/dL (0.2-1); CALCIUM 8.8 mg/dL (8.5-10.1); CREATININE 1.9 mg/dL (0.55-1.3); MAGNESIUM 2.5 mg/dL (1.8-2.4); PHOSPHOROUS 4.4 mg/dL (2.5-4.9); POTASSIUM 4.5 mmol/L (3.5-5.1); TOT PROT 5.9 g/dl (6.4-8.2)
[2018-10-23 08:08] LABS: INR 0.97 (0.83-1.09); PROTHROMBIN TIME (PATIENT) 11.4 SEC (9.7-13.0)
[2018-10-23] MEDS ORDERED: sitaGLIPtin PHOSPHATE 25 MG TABLET (FP) PO SCH (10:00)
[2018-10-23] MEDS ORDERED: VALSARTAN 80 MG TABLET (UD) PO SCH (10:00)
[2018-10-23] MEDS: INSULIN (LEVEMIR) 100 UNITS/ML UNITS SQ SCH ×2 (10:06→21:37)
[2018-10-23] MEDS: amLODIPine BESYLATE 10 MG TABLET (FP) PO SCH (10:06)
[2018-10-23] MEDS: CLOPIDOGREL BISULFATE 75 MG TABLET (FP) PO SCH (10:06)
[2018-10-23] MEDS: LIDOCAINE 5% TOPICAL PATCH TP SCH (10:07)
--- NOTE | 2018-10-23 10:07 | EKG ---
Test Reason : Blood Pressure : / mmHG Vent. Rate : 068 BPM Atrial Rate : 068 BPM P-R Int : 176 ms QRS Dur : 078 ms QT Int : 426 ms P-R-T Axes : -22 001 076 degrees QTc Int : 452 ms NORMAL SINUS RHYTHM INFERIOR INFARCT , AGE UNDETERMINED ABNORMAL ECG WHEN COMPARED WITH ECG OF 20-MAR-2018 14:41, [place] INTERVAL HAS DECREASED Confirmed by DEMAR LAND, PATRIC ([id number]) on 10/23/2018 10:07:16 AM Referred By: Confirmed By:PATRIC BENZ MD
[2018-10-23] MEDS: CEPHALEXIN MONOHYDRATE 250 MG CAPSULE (FP) PO SCH ×2 (10:09→21:38)
[2018-10-23] MEDS ORDERED: PT OWN MED DRAWER 7, Y5N ONE ×3 (10:09→21:18)
--- NOTE | 2018-10-23 11:01 | CON.CARD ---
Cardiology Consult (text) - Consultation Consultation Note: Consult Specialty:: Cardiology Referred by:: Medicine Reason for Consultation:: edema - History of Present Illness Chief Complaint: edema History of Present Illness: 83F h/o CKD, HTN, HLD, CAD s/p CABG (ROSENBERG-LAD, SVG-D1 2000), EDD to ROSENBERG-LAD and staged EDD to OM1 2011, RPDA stent 2013 with stable grafts in 2013, h/o TIA , PVD, uncontrolled DM p/w shortness of breath, edema. Sees me for cardio. Had missed appointments, was in [place] for 4 months and noticed while there she was getting more and more swelling in her legs. Was prescribed PRN lasix for edema, has not taken in several months. In the last two weeks noticed dyspnea worse with walking, swelling in legs increased associated with itching. Blood glucose has been high 300s often. Seen in office yesterday and referred to ER. Received IV lasix in ER, sob improved today. no chest pain, palps, dizziness. - Past Medical History Cardio/Vascular: Yes: CAD (s/p PTCI 2011), CHF, HTN, Hyperlipdemia, [place] (2010) Pulmonary: Yes: Sleep Apnea Gastrointestinal: Yes: GERD Renal/: Yes: Renal Inusuff ...: No Musculoskeletal: Yes: Chronic low back pain, Osteoarthritis (left knee severe), Other (spinal stenosis) Endocrine: Yes: Diabetes Mellitus, Other (Obesity) - Past Surgical History Past Surgical History: Yes: Hysterectomy ((LIZZIE BSO for bleeding fibroids), Oopherectomy - Alcohol/Substance Use Hx Alcohol Use: No History of Substance Use: reports: None - Smoking History Smoking history: Never smoked Have you smoked in the past 12 months: No Aproximately how many cigarettes per day: 0 - Social History ADL: Family Assistance Occupation: , 3 children History of Recent Travel: No Home Medications - Allergies Allergies Allergy/AdvReac Type Severity Reaction Status Date / Time codeine [Codeine] Allergy Verified 03/20/18 12:57 Home Medications Medication Instructions Recorded Cephalexin [Keflex] 250 mg PO BID 02/08/18 Clopidogrel Bisulfate [Plavix] 75 mg PO DAILY 02/08/18 Insulin Aspart [Novolog Flexpen] 20 unit SQ TID 02/08/18 Rosuvastatin [Crestor -] 20 mg PO HS 02/08/18 Sitagliptin Phosphate [Januvia] 75 mg PO DAILY 02/08/18 Amlodipine Besylate [Norvasc -] 10 mg PO DAILY 03/20/18 Insulin (Levemir) [Levemir Vial] 30 units SQ BID 10/23/18 Family Disease History - Family Disease History Family History: Unremarkable Review of Systems - Review of Systems Constitutional: reports: Weakness Eyes: reports: No Symptoms HENT: reports: No Symptoms Neck: reports: No Symptoms Cardiovascular: reports: Chest Pain, Shortness of Breath Respiratory: reports: No Symptoms Gastrointestinal: reports: Abdominal Pain Genitourinary: reports: No Symptoms Musculoskeletal: reports: No Symptoms Integumentary: reports: No Symptoms Neurological: reports: No Symptoms Endocrine: reports: No Symptoms Hematology/Lymphatic: reports: No Symptoms Psychiatric: reports: No Symptoms Vital Signs Period Temp Pulse Resp BP Sys/Mckeon Pulse Ox Last 24 Hr 97.6 F-98.1 F 67-82 16-20 147-159/52-71 96-97 Constitutional: Yes: Well Nourished, No Distress, Calm Eyes: Yes: Conjunctiva Clear, EOM Intact HENT: Yes: Atraumatic, Normocephalic Neck: Yes: Supple, Trachea Midline Respiratory: Yes: Regular, CTA Bilaterally Gastrointestinal: Yes: Normal Bowel Sounds, Soft Cardiovascular: Yes: Regular Rate and Rhythm JVD: No Heart Sounds: Yes: S1, S2 Edema: No Peripheral Pulses: 2+ Left Doralis Pedis, 2+ Right Dorsalis Pedis Neurological: Yes: Alert, Oriented Psychiatric: Yes: Alert, Oriented Laboratory Last Values WBC 7.6 K/mm3 (4.0-10.0) 10/23/18 06:20 RBC 3.89 M/mm3 (3.60-5.2) 10/23/18 06:20 Hgb 12.0 GM/dL (10.7-15.3) 10/23/18 06:20 Hct 36.1 % (32.4-45.2) 10/23/18 06:20 MCV 92.8 fl (80-96) 10/23/18 06:20 MCH 30.7 pg (25.7-33.7) 10/23/18 06:20 MCHC 33.1 g/dl (32.0-36.0) 10/23/18 06:20 RDW 14.4 % (11.6-15.6) 10/23/18 06:20 Plt Count 268 K/MM3 (134-434) 10/23/18 06:20 MPV 10.3 fl (7.5-11.1) 10/23/18 06:20 Absolute Neuts (auto) 4.2 K/mm3 (1.5-8.0) 10/23/18 06:20 Neutrophils % 54.4 % (42.8-82.8) 10/23/18 06:20 Lymphocytes % 27.8 % (8-40) 10/23/18 06:20 Monocytes % 9.0 % (3.8-10.2) 10/23/18 06:20 Eosinophils % 8.0 % (0-4.5) H 10/23/18 06:20 Basophils % 0.8 % (0-2.0) 10/23/18 06:20 Nucleated RBC % 0 % (0-0) 10/23/18 06:20 PT with INR 11.40 SEC (9.7-13.0) 10/23/18 06:20 INR 0.97 (0.83-1.09) 10/23/18 06:20 Sodium 140 mmol/L (136-145) 10/23/18 06:20 Potassium 4.5 mmol/L (3.5-5.1) 10/23/18 06:20 Chloride 105 mmol/L (98-107) 10/23/18 06:20 Carbon Dioxide 26 mmol/L (21-32) 10/23/18 06:20 Anion Gap 9 MMOL/L (8-16) 10/23/18 06:20 BUN 36 mg/dL (7-18) H 10/23/18 06:20 Creatinine 1.9 mg/dL (0.55-1.3) H 10/23/18 06:20 Est GFR (CKD-EPI)AfAm 27.77 10/23/18 06:20 Est GFR (CKD-EPI)NonAf 23.96 10/23/18 06:20 POC Glucometer 259 UNITS (80-120) 10/23/18 05:45 Random Glucose 254 mg/dL (74-106) H 10/23/18 06:20 Hemoglobin A1c % 9.0 % (4.2-6.3) H 10/22/18 09:40 Calcium 8.8 mg/dL (8.5-10.1) 10/23/18 06:20 Phosphorus 4.4 mg/dL (2.5-4.9) 10/23/18 06:20 Magnesium 2.5 mg/dL (1.8-2.4) H 10/23/18 06:20 Total Bilirubin 0.3 mg/dL (0.2-1) 10/23/18 06:20 AST 18 U/L (15-37) 10/23/18 06:20 ALT 19 U/L (13-61) 10/23/18 06:20 Alkaline Phosphatase 84 U/L (45-117) 10/23/18 06:20 Creatine Kinase 43 U/L (26-192) 10/22/18 17:57 Troponin I 0.02 ng/ml (0.00-0.05) 10/22/18 17:57 B-Natriuretic Peptide 1044.3 pg/ml (5-450) H 10/22/18 17:57 Total Protein 5.9 g/dl (6.4-8.2) L 10/23/18 06:20 Albumin 3.0 g/dl (3.4-5.0) L 10/23/18 06:20 Acetaminophen < 2.0 ug/mL (10-30) L 10/22/18 17:57 Assessment/Plan EKG: sinus bradycardia, no ischemic changes, nonspecific T wave changes Echo 02/2017 tds, nl LV/RV function, E/A reversal, mild brock atrial enlargement CXR: no acute process 83F h/o CKD, HTN, HLD, CAD, h/o TIA, PVD, uncontrolled DM p/w shortness of breath, edema tele: sinus acute diastolic CHF exacerbation - received IV lasix in ER, continue - echo pending - monitoring on tele - daily weights, monitor Cr, lytes with diuresis HTN - continue home meds - would hold arb given ULISES CAD - s/p CABG (ROSENBERG-LAD, SVG-D1 2000), EDD to ROSENBERG-LAD and staged EDD to OM1 2011, RPDA stent 2013 with stable grafts in 2013 - not on bb due to history of bradycardia - continue plavix -was not taking statin as prescribed while in [place], restarted and advised to continue on discharge h/o TIA - on plavix PVD - continue plavix, statin DM - uncontrolled - manage per primary ULISES on CKD - likely cardiorenal - continue IV lasix, monitor Cr
[2018-10-23] MEDS: FUROSEMIDE 40 MG/4 ML INJECTABLE VIAL IVPB SCH (12:16)
--- NOTE | 2018-10-23 13:05 | PN ---
Teaching Attending Note Name of Resident: Rosalee Ferrer ATTENDING PHYSICIAN STATEMENT I saw and evaluated the patient. I reviewed the resident's note and discussed the case with the resident. I agree with the resident's findings and plan as documented. SUBJECTIVE: Mrs Ramso says she is feeling so so. Says her legs are swollen and itching. No cp, sob, n/v. OBJECTIVE: Last Vital Signs Temp Pulse Resp BP Pulse Ox 36.5 C 72 20 153/64 96 10/23/18 10:00 10/23/18 10:00 10/23/18 10:00 10/23/18 10:00 10/23/18 10:00 Gen: nad, obese Pulm: bibasilar ronchi but normal rate CV: rrr w/o m/r/g Abd: +bs, s/nt/nd Ext: 3+ BLE edema CBC, BMP 10/23/18 06:20 10/23/18 06:20 ASSESSMENT AND PLAN: Problem List - Problems (1) CHF (congestive heart failure) Assessment/Plan: -case d/w Dr Forrester -received lasix overnight -placed on lasix 80mg IV daily -daily weights Code(s): I50.9 - HEART FAILURE, UNSPECIFIED Qualifiers: Heart failure type: diastolic Heart failure chronicity: acute on chronic Qualified Code(s): I50.33 - Acute on chronic diastolic (congestive) heart failure (2) CKD (chronic kidney disease) Assessment/Plan: -at baseline -close monitoring while aggressively diuresing Code(s): N18.9 - CHRONIC KIDNEY DISEASE, UNSPECIFIED Qualifiers: Chronic kidney disease stage: stage 3 (moderate) Qualified Code(s): N18.3 - Chronic kidney disease, stage 3 (moderate) (3) CAD (coronary artery disease) Assessment/Plan: -quiescent -continue home regimen Code(s): I25.10 - ATHSCL HEART DISEASE OF [place] CORONARY ARTERY W/O ANG PCTRS (4) Diabetes mellitus Assessment/Plan: -diabetic diet -FSBS and SSI Code(s): E11.9 - TYPE 2 DIABETES MELLITUS WITHOUT COMPLICATIONS (5) Dyslipidemia Assessment/Plan: -continue crestor Code(s): E78.5 - HYPERLIPIDEMIA, UNSPECIFIED (6) HTN (hypertension) Assessment/Plan: -elevated -on norvasc 10mg daily -also diuresing with lasix 80mg IV daily -was on coreg in the past, but caused bradycardia -if remains elevated, will discuss with cardiology as can trial beta abhinav in the hospital -also consider ACEI/ARB, but need to closely monitor creatinine Code(s): I10 - ESSENTIAL (PRIMARY) HYPERTENSION Qualifiers: Hypertension type: unspecified Qualified Code(s): I10 - Essential (primary ) hypertension (7) Obesities, morbid Assessment/Plan: -outpatient weight loss plan Code(s): E66.01 - MORBID (SEVERE) OBESITY DUE TO EXCESS CALORIES (8) Chronic UTI Assessment/Plan: -continue keflex Code(s): N39.0 - URINARY TRACT INFECTION, SITE NOT SPECIFIED
--- NOTE | 2018-10-23 13:31 | ECHO ---
Name: JERRY AZEVEDO Exam:Adult Echocardiogram Study Date: 10/23/2018 09:08 AM Age: 83 yrs Reason For Study: chf Height: 53 in Weight: 197 lb BSA: 1.7 m2 MMode/2D Measurements & Calculations IVSd: 1.2 cm Ao root diam: 3.3 cm LVIDd: 4.1 cm LA dimension: 3.9 cm LVIDs: 2.8 cm ACS: 1.1 cm LVPWd: 1.1 cm IVSs: 1.4 cm LVPWs: 1.2 cm EDV(Teich): 74.2 ml ESV(Teich): 28.6 ml LVOT diam: 2.0 cm Doppler Measurements & Calculations MV E max mark: 98.7 cm/sec Ao V2 max: 181.6 cm/sec MV A max mark: 127.8 cm/sec Ao max P.2 mmHg MV E/A: 0.77 Ao V2 mean: 140.1 cm/sec Ao mean P.7 mmHg Ao V2 VTI: 43.4 cm PASCUAL(I,D): 1.7 cm2 PASCUAL(V,D): 1.7 cm2 LV V1 max P.0 mmHg SV(LVOT): 75.1 ml LV V1 mean P.4 mmHg LV V1 max: 99.6 cm/sec LV V1 mean: 73.3 cm/sec LV V1 VTI: 23.6 cm TR max mark: 217.2 cm/sec PI end-d mark: 97.7 cm/sec TR max P.9 mmHg Med Peak E' Mark: 3.7 cm/sec Med E/e': 26.7 Lat Peak E' Mark: 4.3 cm/sec Lat E/e': 23.0 Procedure A two-dimensional transthoracic echocardiogram with color flow and Doppler was performed. The study w as technically difficult with many images being suboptimal in quality. Left Ventricle The left ventricular size, thickness and function are normal. The left ventricle is not well visualiz ed. The left ventricular ejection fraction is normal. Regional wall motion abnormalities cannot be excluded d ue to limited visualization. Right Ventricle The right ventricle is not well visualized. Atria Normal left and right atrial size and function. Mitral Valve The mitral valve is not well visualized. There is no mitral valve stenosis. There is trace mitral regurgitation. Tricuspid Valve The tricuspid valve is not well visualized. There is no tricuspid stenosis. There is mild tricuspid regurgitation. Right ventricular systolic pressure is normal. Aortic Valve The aortic valve is not well visualized. There is mild aortic valve thickening. There is mild aortic sclerosis.;. No hemodynamically significant valvular aortic stenosis. No aortic regurgitation is pres ent. Pulmonic Valve The pulmonic valve is not well visualized. There is no pulmonic valvular stenosis. Mild to moderate p ulmonic valvular regurgitation. Great Vessels The aortic root is normal size. Pericardium/Pleura There is no pericardial effusion. Interpretation Summary The study was technically difficult with many images being suboptimal in quality. The left ventricle is not well visualized. The left ventricular size, thickness and function are normal Regional wall motion abnormalities cannot be excluded due to limited visualization. There is mild aortic sclerosis.; There is mild aortic valve thickening. The aortic valve is not well visualized. There is mild tricuspid regurgitation. Right ventricular systolic pressure is normal. There is trace mitral regurgitation. MD Tarun Munoz 10/23/2018 01:31 PM
[2018-10-23] MEDS ORDERED: LIDOCAINE PATCH REMOVAL MC SCH (22:00)
[2018-10-23] MEDS ORDERED: ROSUVASTATIN CA 20 MG TABLET (FP) PO SCH (22:00)
[2018-10-24] MEDS: HEPARIN NA (PORCINE) 5,000 UNITS/ML 1ML VIAL SQ SCH ×3 (06:29→21:58)
[2018-10-24] MEDS: INSULIN SLIDING SCALE (NOVOLOG) 1 VIAL SQ SCH ×4 (06:29→21:59)
[2018-10-24] MEDS: INSULIN (LEVEMIR) 100 UNITS/ML UNITS SQ SCH ×2 (06:29→21:58)
--- NOTE | 2018-10-24 07:43 | PN ---
Physical Exam: SUBJECTIVE: Patient seen and examined resting in bed nad no acute events, afebrile, hemodynamically stable. complains of several episodes of brown diarrhea and chills. denies sob, cough, orthopnea, cp, palpitations. denies ever having a sleep study OBJECTIVE: Vital Signs Period Temp Pulse Resp BP Sys/Mckeon Pulse Ox Last 24 Hr 97.7 F-98.4 F 70-79 18-20 138-160/55-71 93-96 GENERAL: The patient is awake, alert, and fully oriented, in no acute distress. HEAD: Normal with no signs of trauma. EYES: PERRL, extraocular movements intact, sclera anicteric, conjunctiva clear. No ptosis. ENT: moist mucous membranes. NECK: supple no jvd but hard to appreciate due to girth LUNGS: Breath sounds equal, clear to auscultation bilaterally HEART: rrr, loud systolic murmur best in r upper sternal boarder ABDOMEN: obese, Soft, nontender, nondistended, normoactive bowel sounds, no guarding, no rebound EXTREMITIES: 3 + b/l le edema up tp mid calf, erythema, some scabs on shins NEUROLOGICAL: Cranial nerves II through XII grossly intact. Normal speech, gait not observed. PSYCH: Normal mood, normal affect. SKIN: Warm, dry Laboratory Results - last 24 hr 10/22/18 10/22/18 10/23/18 09:40 17:57 06:20 WBC 7.6 RBC 3.89 Hgb 12.0 Hct 36.1 MCV 92.8 MCH 30.7 MCHC 33.1 RDW 14.4 Plt Count 268 MPV 10.3 Absolute Neuts (auto) 4.2 Neutrophils % 54.4 Lymphocytes % 27.8 Monocytes % 9.0 Eosinophils % 8.0 H Basophils % 0.8 Nucleated RBC % 0 PT with INR INR Sodium 140 Potassium 5.0 Chloride 104 Carbon Dioxide 25 Anion Gap 11 BUN 33 H Creatinine 1.8 H Est GFR (CKD-EPI)AfAm 29.64 Est GFR (CKD-EPI)NonAf 25.58 POC Glucometer Random Glucose 287 H Hemoglobin A1c % 9.0 H Calcium 9.1 Phosphorus Magnesium 2.6 H Total Bilirubin 0.3 AST 21 ALT 23 Alkaline Phosphatase 94 Creatine Kinase 43 Troponin I 0.02 B-Natriuretic Peptide 1044.3 H Total Protein 6.7 Albumin 3.4 Acetaminophen < 2.0 L 10/23/18 10/23/18 10/23/18 06:20 06:20 12:08 WBC RBC Hgb Hct MCV MCH MCHC RDW Plt Count MPV Absolute Neuts (auto) Neutrophils % Lymphocytes % Monocytes % Eosinophils % Basophils % Nucleated RBC % PT with INR 11.40 INR 0.97 Sodium 140 Potassium 4.5 Chloride 105 Carbon Dioxide 26 Anion Gap 9 BUN 36 H Creatinine 1.9 H Est GFR (CKD-EPI)AfAm 27.77 Est GFR (CKD-EPI)NonAf 23.96 POC Glucometer 376 Random Glucose 254 H Hemoglobin A1c % Calcium 8.8 Phosphorus 4.4 Magnesium 2.5 H Total Bilirubin 0.3 AST 18 ALT 19 Alkaline Phosphatase 84 Creatine Kinase Troponin I B-Natriuretic Peptide Total Protein 5.9 L Albumin 3.0 L Acetaminophen 10/23/18 10/23/18 10/24/18 17:10 21:33 06:27 WBC RBC Hgb Hct MCV MCH MCHC RDW Plt Count MPV Absolute Neuts (auto) Neutrophils % Lymphocytes % Monocytes % Eosinophils % Basophils % Nucleated RBC % PT with INR INR Sodium Potassium Chloride Carbon Dioxide Anion Gap BUN Creatinine Est GFR (CKD-EPI)AfAm Est GFR (CKD-EPI)NonAf POC Glucometer 246 338 221 Random Glucose Hemoglobin A1c % Calcium Phosphorus Magnesium Total Bilirubin AST ALT Alkaline Phosphatase Creatine Kinase Troponin I B-Natriuretic Peptide Total Protein Albumin Acetaminophen Active Medications Generic Name Dose Route Start Last Admin Trade Name Freq PRN Reason Stop Dose Admin Amlodipine Besylate 10 mg 10/23/18 10:00 10/23/18 10:06 Norvasc - PO 10 mg DAILY JASMYN Administration Cephalexin HCl 250 mg 10/22/18 22:00 10/23/18 21:38 Keflex - PO 250 mg BID JASMYN Administration Clopidogrel Bisulfate 75 mg 10/23/18 10:00 10/23/18 10:06 Plavix - PO 75 mg DAILY JASMYN Administration Furosemide 80 mg 10/23/18 11:15 10/23/18 12:16 Lasix Injection - IVPB 80 mg DAILY JASMYN Administration Heparin Sodium (Porcine) 5,000 unit 10/23/18 06:00 10/24/18 06:29 Heparin - SQ Not Given [facility] Insulin Aspart 1 vial 10/22/18 22:00 10/24/18 06:29 Novolog Vial Sliding Scale - SQ 4 units ACHS JASMYN Administration Protocol Insulin Detemir 30 units 10/23/18 08:30 10/24/18 06:29 Levemir Vial SQ 30 units BID@0700,2200 JASMYN Administration Lidocaine 1 patch 10/23/18 10:00 10/23/18 10:07 Lidoderm Patch - TP 1 patch DAILY JASMYN Administration Miscellaneous 1 each 10/23/18 22:00 10/23/18 21:38 Lidoderm Patch Removal MC 1 each DAILY@2200 JASMYN Administration Rosuvastatin Calcium 20 mg 10/23/18 22:00 10/23/18 21:37 Crestor - PO 20 mg HS JASMYN Administration ASSESSMENT/PLAN: This is an 83 yo F with PMH of HFPEF, CKD(Stage 4), HTN, HLD, CAD( s/p CABG 2000 , [place] 2010, 4 stents), PVD, OA, IDDM, or GERD presents with b/l LE edema weorsened over several weeks. Acute CHF exacerbation b/l LE edema HTN IDDM CKD Eosinophillia -BNP 1044 above baseline, cxr cephalization -nsvt on tele -clinically volume overloaded -TTE 2017 showed normal LV + RV fxn; E/A reversal, mild b/l atrial enlargement. TTE yesterday poor quality but normal EF -daily weights, Strict Is & Os -fluid restriction -on plavix, crestor, norvasc (unlikley cause of LE edema). started on valsartan 80 mg last night but cardiology would like to hold in light of renal fxn. -continue lasix 80 d -f/u TFTs, a1c, lipid panel, tele monitoring -duplex negative for dvt -hold januvia, continue levemir 30 bid, add ISS ACHS -creat is at baseline -eosinophilia likely due to keflex -f/u stool c diff -cortisporin cream for itch on legs Problem List - Problems (1) CHF exacerbation Code(s): I50.9 - HEART FAILURE, UNSPECIFIED (2) CHF (congestive heart failure) Code(s): I50.9 - HEART FAILURE, UNSPECIFIED Qualifiers: Heart failure type: diastolic Heart failure chronicity: acute on chronic Qualified Code(s): I50.33 - Acute on chronic diastolic (congestive) heart failure (3) Anemia Code(s): D64.9 - ANEMIA, UNSPECIFIED (4) CAD (coronary artery disease) Code(s): I25.10 - ATHSCL HEART DISEASE OF [place] CORONARY ARTERY W/O ANG PCTRS (5) CKD (chronic kidney disease) Code(s): N18.9 - CHRONIC KIDNEY DISEASE, UNSPECIFIED Qualifiers: Chronic kidney disease stage: stage 3 (moderate) Qualified Code(s): N18.3 - Chronic kidney disease, stage 3 (moderate) (6) Carotid atherosclerosis Code(s): I65.29 - OCCLUSION AND STENOSIS OF UNSPECIFIED CAROTID ARTERY (7) Chronic UTI Code(s): N39.0 - URINARY TRACT INFECTION, SITE NOT SPECIFIED (8) Diabetes mellitus Code(s): E11.9 - TYPE 2 DIABETES MELLITUS WITHOUT COMPLICATIONS (9) HTN (hypertension) Code(s): I10 - ESSENTIAL (PRIMARY) HYPERTENSION Qualifiers: Hypertension type: unspecified Qualified Code(s): I10 - Essential (primary ) hypertension Visit type - Emergency Visit Emergency Visit: Yes ED Registration Date: 10/22/18 Care time: The patient presented to the Emergency Department on the above date and was hospitalized for further evaluation of their emergent condition. - New Patient This patient is new to me today: No - Critical Care Critical Care patient: No - Discharge Referral Referred to [facility] Med [facility] No
[2018-10-24 07:57] LABS: HEMATOCRIT 37.4 % (32.4-45.2); HEMOGLOBIN 12.2 GM/dL (10.7-15.3); MCH 30.6 pg (25.7-33.7); MCHC 32.6 g/dl (32.0-36.0); MEAN CELL VOLUME 93.8 fl (80-96); MEAN PLT VOLUME 10.8 fl (7.5-11.1); PLATELET COUNT 262 K/MM3 (134-434); RBC 3.99 M/mm3 (3.60-5.2); RDW 14.1 % (11.6-15.6); WHITE BLOOD COUNT 8.3 K/mm3 (4.0-10.0)
--- NOTE | 2018-10-24 08:03 | PN ---
Teaching Attending Note Name of Resident: Rosalee Ferrer ATTENDING PHYSICIAN STATEMENT I saw and evaluated the patient. I reviewed the resident's note and discussed the case with the resident. I agree with the resident's findings and plan as documented with exceptions below. SUBJECTIVE: Patient seen and examined. Denies any dyspnea, reports leg swelling but overall tangential in her conversations. OBJECTIVE: Vital Signs Period Temp Pulse Resp BP Sys/Mckeon Pulse Ox Last 24 Hr 97.7 F-98.4 F 70-79 18-18 134-160/47-71 93-93 Intake & Output 10/21/18 10/22/18 10/23/18 10/24/18 23:59 23:59 23:59 23:59 Intake Total 1080 Output Total 200 Balance 880 Weight 197 lb 187 lb General: ambulating in room, no acute distress Chest: CTAB, no rales or wheezing Abdomen:soft, obese, NT Extremities: 2+ pedal pitting edema CVS:S1S2 regular Telemetry with no events Home Medications Medication Instructions Recorded Cephalexin [Keflex] 250 mg PO BID 02/08/18 Clopidogrel Bisulfate [Plavix] 75 mg PO DAILY 02/08/18 Insulin Aspart [Novolog Flexpen] 20 unit SQ TID 02/08/18 Rosuvastatin [Crestor -] 20 mg PO HS 02/08/18 Sitagliptin Phosphate [Januvia] 75 mg PO DAILY 02/08/18 Amlodipine Besylate [Norvasc -] 10 mg PO DAILY 03/20/18 Insulin (Levemir) [Levemir Vial] 30 units SQ BID 10/23/18 Active Medications Amlodipine Besylate (Norvasc -) 10 mg PO DAILY [facility] Last Admin: 10/24/18 09:59 Dose: 10 mg Cephalexin HCl (Keflex -) 250 mg PO BID [facility] Last Admin: 10/24/18 09:59 Dose: 250 mg Clopidogrel Bisulfate (Plavix -) 75 mg PO DAILY [facility] Last Admin: 10/24/18 09:59 Dose: 75 mg Furosemide (Lasix Injection -) 80 mg IVPB DAILY [facility] Last Admin: 10/24/18 09:59 Dose: 80 mg Heparin Sodium (Porcine) (Heparin -) 5,000 unit SQ TID [facility] Last Admin: 10/24/18 06:29 Dose: Not Given Insulin Aspart (Novolog Vial Sliding Scale -) 1 vial SQ ACHS [facility]; Protocol Last Admin: 10/24/18 11:23 Dose: 6 units Insulin Aspart (Novolog) 10 units SQ TIDAC [facility] Insulin Detemir (Levemir Vial) 30 units SQ BID@0700,2200 [facility] Last Admin: 10/24/18 06:29 Dose: 30 units Lidocaine (Lidoderm Patch -) 1 patch TP DAILY [facility] Last Admin: 10/24/18 09:59 Dose: 1 patch Miscellaneous (Lidoderm Patch Removal) 1 each MC DAILY@2200 [facility] Last Admin: 10/23/18 21:38 Dose: 1 each Rosuvastatin Calcium (Crestor -) 20 mg PO HS [facility] Last Admin: 10/23/18 21:37 Dose: 20 mg Laboratory Results - last 24 hr 10/22/18 10/23/18 10/23/18 09:40 12:08 17:10 WBC RBC Hgb Hct MCV MCH MCHC RDW Plt Count MPV Sodium Potassium Chloride Carbon Dioxide Anion Gap BUN Creatinine Est GFR (CKD-EPI)AfAm Est GFR (CKD-EPI)NonAf POC Glucometer 376 246 Random Glucose Hemoglobin A1c % Calcium Phosphorus Magnesium Total Bilirubin AST ALT Alkaline Phosphatase Total Protein Albumin Triglycerides Cholesterol Total LDL Cholesterol HDL Cholesterol TSH Free T4 PTH Intact 114 H 10/23/18 10/24/18 10/24/18 21:33 06:27 06:50 WBC RBC Hgb Hct MCV MCH MCHC RDW Plt Count MPV Sodium 138 Potassium 4.0 Chloride 102 Carbon Dioxide 25 Anion Gap 10 BUN 35 H Creatinine 2.0 H Est GFR (CKD-EPI)AfAm 26.10 Est GFR (CKD-EPI)NonAf 22.52 POC Glucometer 338 221 Random Glucose 229 H Hemoglobin A1c % Calcium 8.5 Phosphorus 4.4 Magnesium 2.4 Total Bilirubin 0.2 AST 16 ALT 19 Alkaline Phosphatase 85 Total Protein 5.8 L Albumin 2.8 L Triglycerides 537 H Cholesterol 247 H Total LDL Cholesterol 154 H HDL Cholesterol 32 L TSH 3.41 Free T4 0.97 PTH Intact 10/24/18 10/24/18 10/24/18 06:50 07:19 11:21 WBC 8.3 RBC 3.99 Hgb 12.2 Hct 37.4 MCV 93.8 MCH 30.6 MCHC 32.6 RDW 14.1 Plt Count 262 MPV 10.8 Sodium Potassium Chloride Carbon Dioxide Anion Gap BUN Creatinine Est GFR (CKD-EPI)AfAm Est GFR (CKD-EPI)NonAf POC Glucometer 259 Random Glucose Hemoglobin A1c % 9.5 H Calcium Phosphorus Magnesium Total Bilirubin AST ALT Alkaline Phosphatase Total Protein Albumin Triglycerides Cholesterol Total LDL Cholesterol HDL Cholesterol TSH Free T4 PTH Intact ASSESSMENT AND PLAN: 83 yof with PMHx of CAD s/p CABG/multiple PCI, last in 2013, diastolic CHF, HTN , HLD, IDDM, CKD stage II-III (baseline cr around 1.5), PVD, OA, GERD, non compliant with her lasix and home DM meds admitted with progressive dyspnea, leg swelling and hyperglycemia -Acute diastolic heart failure exacerbation, suspect in the setting of non compliance -ULISES on CKD stage II-III,suspect pre-renal from above -Uncontrolled HTN -IDDM, hyperglycemia from non compliance -CAD s/p CABG/multiple PCI (last in 2013) -HTN -HLD -PVD -OA -GERD -H/o bradycardia -Chronic UTI, on suppressive therapy Plan: Cardiology input noted. 2D echo results reviewed Lasix 80 mg IV daily, strict I/Os, daily weights, monitor volume status. A1c 9.5,Strongly suspect non compliance. Continue levemir BID, ISS, Resume premeal aspart at 10 units TID, titrate up as needed. Lipid panel noted, again given concerns for non compliance, continue crestor and outpatient monitoring. Diabetic/CHF education. Not candidate for beta abhinav given h/o bradycardia and hold off on ACEi/ARB for now till renal function stabilizes. Plavix/statin Keflex suppressive therapy for chronic UTI PT eval Home oxygen needs assessment prior to dc DVTPPX heparin Dispo pending improvement in volume status. Plan discussed with patient and nursing, all questions answered.
[2018-10-24 08:36] LABS: ALBUMIN 2.8 g/dl (3.4-5.0); BILIRUBIN,TOTAL 0.2 mg/dL (0.2-1); CALCIUM 8.5 mg/dL (8.5-10.1); MAGNESIUM 2.4 mg/dL (1.8-2.4); PHOSPHOROUS 4.4 mg/dL (2.5-4.9); TOT PROT 5.8 g/dl (6.4-8.2)
[2018-10-24] MEDS ORDERED: PT OWN MED DRAWER 7, Y5N ONE ×2 (09:52→17:43)
[2018-10-24] MEDS: amLODIPine BESYLATE 10 MG TABLET (FP) PO SCH (09:59)
[2018-10-24] MEDS: CEPHALEXIN MONOHYDRATE 250 MG CAPSULE (FP) PO SCH ×2 (09:59→21:58)
[2018-10-24] MEDS: FUROSEMIDE 40 MG/4 ML INJECTABLE VIAL IVPB SCH (09:59)
[2018-10-24] MEDS: LIDOCAINE 5% TOPICAL PATCH TP SCH (09:59)
[2018-10-24] MEDS: CLOPIDOGREL BISULFATE 75 MG TABLET (FP) PO SCH (09:59)
[2018-10-24] MEDS ORDERED: ACETAMINOPHEN 325 MG TABLET (FP) PO PRN (11:48)
--- NOTE | 2018-10-24 12:12 | PN ---
Progress Note (short form) - Note Progress Note: s: no cp sob palps dizzy; le edema improving o: Vital Signs Period Temp Pulse Resp BP Sys/Mckeon Pulse Ox Last 24 Hr 97.7 F-98.4 F 70-79 18-18 134-160/47-71 93-93 Constitutional: Yes: Well Nourished, No Distress, Calm Eyes: Yes: Conjunctiva Clear Neck: Yes: Supple, Trachea Midline Respiratory: Yes: Regular, CTA Bilaterally Gastrointestinal: Yes: Normal Bowel Sounds, Soft Cardiovascular: Yes: Regular Rate and Rhythm JVD: No Heart Sounds: Yes: S1, S2 Edema:1-2+ le edema bl Neurological: Yes: Alert, Oriented Psychiatric: Yes: Alert, Oriented Current Medications Generic Name Dose Route Start Last Admin Trade Name Freq PRN Reason Stop Dose Admin Acetaminophen 650 mg 10/24/18 11:48 Tylenol - PO Q6H PRN PAIN LEVEL 1-5 Amlodipine Besylate 10 mg 10/23/18 10:00 10/24/18 09:59 Norvasc - PO 10 mg DAILY JASMYN Administration Cephalexin HCl 250 mg 10/22/18 22:00 10/24/18 09:59 Keflex - PO 250 mg BID JASMYN Administration Clopidogrel Bisulfate 75 mg 10/23/18 10:00 10/24/18 09:59 Plavix - PO 75 mg DAILY [facility]ASMYN Administration Furosemide 80 mg 10/23/18 11:15 10/24/18 09:59 Lasix Injection - IVPB 80 mg DAILY [facility]ASMYN Administration Heparin Sodium (Porcine) 5,000 unit 10/23/18 06:00 10/24/18 06:29 Heparin - SQ Not Given TID [facility] Insulin Aspart 1 vial 10/22/18 22:00 10/24/18 11:23 Novolog Vial Sliding Scale - SQ 6 units ACHS JASMYN Administration Protocol Insulin Aspart 10 units 10/24/18 16:30 Novolog SQ TIDAC [facility] Insulin Detemir 30 units 10/23/18 08:30 10/24/18 06:29 Levemir Vial SQ 30 units BID@0700,2200 [facility]N Administration Rosuvastatin Calcium 20 mg 10/23/18 22:00 10/23/18 21:37 Crestor - PO 20 mg HS JASMYN Administration CBC, BMP 10/24/18 06:50 10/24/18 06:50 Assessment/Plan EKG: sinus bradycardia, no ischemic changes, nonspecific T wave changes Echo 02/2017 tds, nl LV/RV function, E/A reversal, mild brock atrial enlargement echo 10/2018: tds; nl lv, rv tds, mild tr, nl rvsp, mild-mod pr CXR: no acute process tele: sinus 83F h/o CKD, HTN, HLD, CAD, h/o TIA, PVD, uncontrolled DM p/w shortness of breath, edema. acute diastolic CHF exacerbation - improving, cont iv lasix - echo unremarkable - daily weights, monitor Cr, lytes with diuresis HTN - continue home meds - would hold arb given ULISES CAD - s/p CABG (ROSENBEGR-LAD, SVG-D1 2000), EDD to ROSENBERG-LAD and staged EDD to OM1 2011, RPDA stent 2013 with stable grafts in 2013 - not on bb due to history of bradycardia - continue plavix -was not taking statin as prescribed while in [place], restarted h/o TIA - on plavix PVD - continue plavix, statin ULISES on CKD - likely cardiorenal - continue IV lasix, monitor Cr
[2018-10-24] MEDS ORDERED: NEOMYCIN/BACI/POLY/HC TOPICAL OINT 15 GM TUBE TP SCH (16:45)
[2018-10-24] MEDS: Insulin (LOG) Aspart 100 UNITS/ML VIAL SQ SCH (17:38)
[2018-10-24] MEDS: ROSUVASTATIN CA 10 MG TABLET (FP) PO SCH (21:58)
[2018-10-24] MEDS ORDERED: ROSUVASTATIN CA 40 MG TABLET PO SCH ×3 (22:00)
[2018-10-24] MEDS: BACITRACIN/POLYMYXIN B SULFATE 15 GM TUBE TP SCH (22:00)
[2018-10-25] MEDS: INSULIN (LEVEMIR) 100 UNITS/ML UNITS SQ SCH ×2 (06:19→21:30)
[2018-10-25] MEDS: HEPARIN NA (PORCINE) 5,000 UNITS/ML 1ML VIAL SQ SCH ×3 (06:47→21:37)
[2018-10-25] MEDS: Insulin (LOG) Aspart 100 UNITS/ML VIAL SQ SCH ×3 (07:43→17:59)
[2018-10-25] MEDS: INSULIN SLIDING SCALE (NOVOLOG) 1 VIAL SQ SCH ×4 (07:43→21:30)
[2018-10-25 08:34] LABS: ALBUMIN 2.8 g/dl (3.4-5.0); BILIRUBIN,TOTAL 0.3 mg/dL (0.2-1); CALCIUM 8.8 mg/dL (8.5-10.1); CREATININE 1.9 mg/dL (0.55-1.3); MAGNESIUM 2.4 mg/dL (1.8-2.4); PHOSPHOROUS 4.5 mg/dL (2.5-4.9); POTASSIUM 3.8 mmol/L (3.5-5.1); TOT PROT 5.8 g/dl (6.4-8.2)
--- NOTE | 2018-10-25 09:55 | PN ---
Progress Note, Physician Chief Complaint: no acute changes Denies CP or SOB TELE: NSr, PVCs History of Present Illness: weight is down - Current Medication List Current Medications: Active Medications Acetaminophen (Tylenol -) 650 mg PO Q6H PRN PRN Reason: PAIN LEVEL 1-5 Amlodipine Besylate (Norvasc -) 10 mg PO DAILY [facility] Last Admin: 10/24/18 09:59 Dose: 10 mg Bacitracin/Polymyxin B Sulfate (Polysporin Ointment -) 1 applic TP DAILY [facility] Last Admin: 10/24/18 22:00 Dose: 1 applic Cephalexin HCl (Keflex -) 250 mg PO BID [facility] Last Admin: 10/24/18 21:58 Dose: 250 mg Clopidogrel Bisulfate (Plavix -) 75 mg PO DAILY [facility] Last Admin: 10/24/18 09:59 Dose: 75 mg Ezetimibe (Zetia -) 10 mg PO DAILY [facility] Furosemide (Lasix Injection -) 80 mg IVPB DAILY [facility] Last Admin: 10/24/18 09:59 Dose: 80 mg Heparin Sodium (Porcine) (Heparin -) 5,000 unit SQ TID [facility] Last Admin: 10/25/18 06:47 Dose: Not Given Insulin Aspart (Novolog Vial Sliding Scale -) 1 vial SQ [facility]; Protocol Last Admin: 10/25/18 07:43 Dose: Not Given Insulin Aspart (Novolog) 10 units SQ TIDAC [facility] Last Admin: 10/25/18 07:43 Dose: Not Given Insulin Detemir (Levemir Vial) 30 units SQ BID@0700,2200 [facility] Last Admin: 10/25/18 06:19 Dose: 30 units Rosuvastatin Calcium (Crestor -) 10 mg PO HS [facility] Last Admin: 10/24/18 21:58 Dose: 10 mg - Objective Vital Signs: Vital Signs Temperature 97.9 F 10/25/18 06:00 Pulse Rate 68 10/25/18 06:00 Respiratory Rate 18 10/25/18 06:00 Blood Pressure 135/58 L 10/25/18 06:00 O2 Sat by Pulse Oximetry (%) 92 L 10/24/18 21:00 Constitutional: Yes: Calm Cardiovascular: Yes: Regular Rate and Rhythm Respiratory: Yes: CTA Bilaterally Gastrointestinal: Yes: Soft, Abdomen, Obese Edema: Yes Edema: LLE: 1+, RLE: 1+ Neurological: Yes: Alert Labs: CBC, BMP 10/24/18 06:50 10/25/18 06:25 INR, PTT INR 0.97 (0.83-1.09) 10/23/18 06:20 - ....Imaging MRI: Image Reviewed Assessment/Plan Assessment/Plan EKG: sinus bradycardia, no ischemic changes, nonspecific T wave changes Echo 02/2017 tds, nl LV/RV function, E/A reversal, mild brock atrial enlargement echo 10/2018: tds; nl lv, rv tds, mild tr, nl rvsp, mild-mod pr CXR: no acute process tele: sinus 83F h/o CKD, HTN, HLD, CAD, h/o TIA, PVD, uncontrolled DM p/w shortness of breath, edema. Acute diastolic CHF exacerbation - improving, cont iv lasix. - echo unremarkable - daily weights, Creat stable. Look to switch to PO over weekend, still with some edema. Target Sunday. HTN - continue home meds - would hold arb given ULISES CAD - s/p CABG (ROSENBERG-LAD, SVG-D1 2000), EDD to ROSENBERG-LAD and staged EDD to OM1 2011, RPDA stent 2013 with stable grafts in 2013 - not on bb due to history of bradycardia - continue plavix -was not taking statin as prescribed while in [place], restarted h/o TIA - on plavix PVD - continue plavix, statin ULISES on CKD - likely cardiorenal - continue IV lasix, monitor Cr thus far stable w/ diuresis.
[2018-10-25] MEDS ORDERED: PT OWN MED DRAWER 7, Y5N ONE ×3 (10:12→21:07)
--- NOTE | 2018-10-25 10:32 | PN ---
Physical Exam: SUBJECTIVE: Patient seen and examined, leg swelling improved, no new concerns. OBJECTIVE: Vital Signs Period Temp Pulse Resp BP Sys/Mckeon Pulse Ox Last 24 Hr 97.9 F-98.1 F 64-86 18-20 133-144/48-83 92 Intake & Output 10/22/18 10/23/18 10/24/18 10/25/18 23:59 23:59 23:59 23:59 Intake Total 1080 400 100 Output Total 200 Balance 880 400 100 Weight 197 lb 187 lb 186 lb 9.6 oz General: ambulating in room, no acute distress Chest: CTAB, no rales or wheezing Abdomen:soft, obese, NT Extremities: 2+ pedal pitting edema with skin discoloration CVS:S1S2 regular Telemetry with no events Laboratory Results - last 24 hr 10/22/18 10/24/18 10/24/18 09:40 11:21 16:30 Sodium Potassium Chloride Carbon Dioxide Anion Gap BUN Creatinine Est GFR (CKD-EPI)AfAm Est GFR (CKD-EPI)NonAf POC Glucometer 259 294 Random Glucose Calcium Phosphorus Magnesium Total Bilirubin AST ALT Alkaline Phosphatase Total Protein Albumin PTH Intact 114 H 10/24/18 10/25/18 10/25/18 21:56 06:09 06:25 Sodium 141 Potassium 3.8 Chloride 105 Carbon Dioxide 26 Anion Gap 10 BUN 37 H Creatinine 1.9 H Est GFR (CKD-EPI)AfAm 27.77 Est GFR (CKD-EPI)NonAf 23.96 POC Glucometer 201 145 Random Glucose 143 H Calcium 8.8 Phosphorus 4.5 Magnesium 2.4 Total Bilirubin 0.3 AST 16 ALT 20 Alkaline Phosphatase 80 Total Protein 5.8 L Albumin 2.8 L PTH Intact Active Medications Generic Name Dose Route Start Last Admin Trade Name Freq PRN Reason Stop Dose Admin Acetaminophen 650 mg 10/24/18 11:48 Tylenol - PO Q6H PRN PAIN LEVEL 1-5 Amlodipine Besylate 10 mg 10/23/18 10:00 10/24/18 09:59 Norvasc - PO 10 mg DAILY JASMYN Administration Bacitracin/Polymyxin B Sulfate 1 applic 10/24/18 17:45 10/24/18 22:00 Polysporin Ointment - TP 1 applic DAILY JASMYN Administration Cephalexin HCl 250 mg 10/22/18 22:00 10/24/18 21:58 Keflex - PO 250 mg BID JASMYN Administration Clopidogrel Bisulfate 75 mg 10/23/18 10:00 10/24/18 09:59 Plavix - PO 75 mg DAILY JASMYN Administration Ezetimibe 10 mg 10/25/18 10:00 Zetia - PO DAILY JASMYN Furosemide 80 mg 10/23/18 11:15 10/24/18 09:59 Lasix Injection - IVPB 80 mg DAILY [facility]N Administration Heparin Sodium (Porcine) 5,000 unit 10/23/18 06:00 10/25/18 06:47 Heparin - SQ Not Given TID [facility] Insulin Aspart 1 vial 10/22/18 22:00 10/25/18 07:43 Novolog Vial Sliding Scale - SQ Not Given ACHS [facility] Protocol Insulin Aspart 10 units 10/24/18 16:30 10/25/18 07:43 Novolog SQ Not Given TIDAC [facility] Insulin Detemir 30 units 10/23/18 08:30 10/25/18 06:19 Levemir Vial SQ 30 units BID@0700,2200 [facility] Administration Rosuvastatin Calcium 10 mg 10/24/18 22:00 10/24/18 21:58 Crestor - PO 10 mg HS JASMYN Administration ASSESSMENT/PLAN: 83 yof with PMHx of CAD s/p CABG/multiple PCI, last in 2013, diastolic CHF, HTN , HLD, IDDM, CKD stage II-III (baseline cr around 1.5), PVD, OA, GERD, non compliant with her lasix and home DM meds admitted with progressive dyspnea, leg swelling and hyperglycemia -Acute diastolic heart failure exacerbation, suspect in the setting of non compliance -ULISES on CKD stage II-III,suspect pre-renal from above -Uncontrolled HTN -IDDM, hyperglycemia from non compliance -CAD s/p CABG/multiple PCI (last in 2013) -HTN -HLD -PVD -OA -GERD -H/o bradycardia -Chronic UTI, on suppressive therapy Plan: Cardiology input noted. 2D echo results reviewed Lasix 80 mg IV daily, strict I/Os, daily weights, monitor volume status. Transition to PO In 24-48 hours A1c 9.5,Strongly suspect non compliance. Continue levemir BID, ISS, premeal aspart at 10 units TID, titrate up as needed. Lipid panel noted, again concerns for non compliance. Crestor 10 mg and zetia. Diabetic/CHF education. Not candidate for beta abhinav given h/o bradycardia and hold off on ACEi/ARB for now till renal function stabilizes. Plavix/statin Keflex suppressive therapy for chronic UTI PT eval noted, for SNF. DVTPPX heparin Dispo to SNF in 24-48 hours of PO lasix if continues to improve Plan discussed with patient and nursing, all questions answered. Visit type - Emergency Visit Emergency Visit: Yes ED Registration Date: 10/22/18 Care time: The patient presented to the Emergency Department on the above date and was hospitalized for further evaluation of their emergent condition. - New Patient This patient is new to me today: No - Critical Care Critical Care patient: No - Discharge Referral Referred to [facility] Med P.C.: No
[2018-10-25] MEDS: amLODIPine BESYLATE 10 MG TABLET (FP) PO SCH (10:49)
[2018-10-25] MEDS: CLOPIDOGREL BISULFATE 75 MG TABLET (FP) PO SCH (10:49)
[2018-10-25] MEDS: FUROSEMIDE 40 MG/4 ML INJECTABLE VIAL IVPB SCH (10:49)
[2018-10-25] MEDS: BACITRACIN/POLYMYXIN B SULFATE 15 GM TUBE TP SCH (10:49)
[2018-10-25] MEDS: EZETIMIBE 10 MG TABLET (FP) PO SCH (10:49)
[2018-10-25] MEDS: CEPHALEXIN MONOHYDRATE 250 MG CAPSULE (FP) PO SCH ×2 (10:49→21:30)
[2018-10-25 12:45] VITALS: BMI 41.7
[2018-10-25] MEDS: ROSUVASTATIN CA 10 MG TABLET (FP) PO SCH (21:30)
[2018-10-26] MEDS: HEPARIN NA (PORCINE) 5,000 UNITS/ML 1ML VIAL SQ SCH ×2 (05:46→14:52)
[2018-10-26] MEDS: Insulin (LOG) Aspart 100 UNITS/ML VIAL SQ SCH ×2 (06:16→12:04)
[2018-10-26] MEDS: INSULIN SLIDING SCALE (NOVOLOG) 1 VIAL SQ SCH ×2 (06:17→12:04)
[2018-10-26] MEDS: INSULIN (LEVEMIR) 100 UNITS/ML UNITS SQ SCH (06:19)
[2018-10-26 07:38] LABS: BLOOD UREA NITROGEN 38.6 mg/dL (7-18); CALCIUM 8.4 mg/dL (8.5-10.1); CREATININE 1.8 mg/dL (0.55-1.3); MAGNESIUM 2.3 mg/dL (1.8-2.4); PHOSPHOROUS 4.2 mg/dL (2.5-4.9)
--- NOTE | 2018-10-26 10:46 | DS ---
Physical Exam: SUBJECTIVE: Patient seen and examined, no complaints, leg swelling improved, feels better. OBJECTIVE: Vital Signs Period Temp Pulse Resp BP Sys/Mckeon Pulse Ox Last 24 Hr 97.8 F-98.1 F 60-78 18-20 106-135/5-64 94-95 Intake & Output 10/23/18 10/24/18 10/25/18 10/26/18 23:59 23:59 23:59 23:59 Intake Total 1080 400 600 Output Total 200 Balance 880 400 600 Weight 187 lb 186 lb 189 lb 12.8 oz PHYSICAL EXAM General: ambulating in room, no acute distress Chest: CTAB, no rales or wheezing Abdomen:soft, obese, NT Extremities: markedly improved pedal edema CVS:S1S2 regular Telemetry with no events LABS Laboratory Results - last 24 hr 10/25/18 10/25/18 10/25/18 11:33 17:11 21:28 Sodium Potassium Chloride Carbon Dioxide Anion Gap BUN Creatinine Est GFR (CKD-EPI)AfAm Est GFR (CKD-EPI)NonAf POC Glucometer 355 224 211 Random Glucose Calcium Phosphorus Magnesium 10/26/18 10/26/18 05:15 05:30 Sodium 141 Potassium 4.0 Chloride 104 Carbon Dioxide 29 Anion Gap 7 L BUN 38.6 H Creatinine 1.8 H Est GFR (CKD-EPI)AfAm 29.64 Est GFR (CKD-EPI)NonAf 25.58 POC Glucometer 124 Random Glucose 129 H Calcium 8.4 L Phosphorus 4.2 Magnesium 2.3 2D echo: LV size,thickness and function normal mild aortic sclerosis Mild aortic valve thickening, mild tricuspid regurgitation RV pressure is normal trace mitral regurgitation Limited study HOSPITAL COURSE: Date of Admission:10/22/18 Date of Discharge: 10/26/18 Minutes to complete discharge: 40 Discharge Summary Reason For Visit: CONGESTIVE HEART FAILURE Current Active Problems CHF (congestive heart failure) (Acute) CHF exacerbation (Acute) Hospital Course: 83 yof with PMHx of CAD s/p CABG/multiple PCI, last in 2013, diastolic CHF, HTN , HLD, IDDM, CKD stage II-III (baseline cr around 1.5), PVD, OA, GERD, non compliant with her lasix and home DM meds admitted with progressive dyspnea, leg swelling and hyperglycemia. She was noted in acute diastolic heart failure likely in the setting of dietary and medication non compliance. She was placed on lasix 80 mg IV daily with marked improvement. She had 2D echo as above. Her A1c was 9.5 again likely from long standing non compliance; and levemir and premeal Aspart were resumed. She had abnormal lipid panel and placed on crestor and zetia. She was followed by cardiology. Her renal function was stable around 1.8-2 and will need close outpatient monitoring. She will be discharged in stable condition to SNF. Condition: Stable - Instructions Diet, Activity, Other Instructions: You were admitted with swelling and placed on Intravenous medication lasix with improvement. You were seen by cardiology. MEDICATIONS: Start; Lasix 80 mg twice daily, continue for 1 week, then as directed by your bilingual sales assistant. Crestor 10 mg at bedtime Zetia 10 mg daily. Stop crestor 20 mg daily. Continue other medications as before. INSTRUCTIONS: Please note that it is very important that you take your insulin and medications and have a close follow up with your doctor. Weigh yourself daily and notify doctor if weight gain > 3 lbs in 2 days. Your kidney function will need to be closely monitored with your doctor. FOLLOW UP: Blood work for your kidneys BMP (basic metabolic panel) in 1 week at the rehab. Please have the rehab doctor discuss the kidney numbers with bilingual sales assistant to address additional dosing of lasix. Please follow up in 1 week with your bilingual sales assistant. Follow up with Dr. Hua in 1 week of discharge from the rehab. Please discuss with your doctor for outpatient referral to a kidney doctor and transit operations supervisor. If you notice any worsening breathing, or new severe symptoms, call 911 or come to the ED. Referrals: Madonna Forrester MD [Staff Physician] - Deric Hua MD [Primary Care Provider] - Disposition: ALF FACILITY - Home Medications Comprehensive Discharge Medication List: Ambulatory Orders Cephalexin [Keflex] 250 mg PO BID 02/08/18 Clopidogrel Bisulfate [Plavix] 75 mg PO DAILY 02/08/18 Insulin Aspart [Novolog Flexpen] 20 unit SQ TID 02/08/18 Sitagliptin Phosphate [Januvia] 75 mg PO DAILY 02/08/18 Amlodipine Besylate [Norvasc -] 10 mg PO DAILY 03/20/18 Insulin (Levemir) [Levemir Vial] 30 units SQ BID 10/23/18 Ezetimibe [Zetia -] 10 mg PO DAILY tablet 10/26/18 Furosemide [Lasix] 80 mg PO BID #60 tablet 10/26/18 Insulin Sliding Scale [Novolog Vial Sliding Scale -] 1 vial SQ ACHS units 10/26 Rosuvastatin [Crestor -] 10 mg PO HS tablet 10/26/18 This patient is new to me today: No Emergency Visit: Yes ED Registration Date: 10/22/18 Care time: The patient presented to the Emergency Department on the above date and was hospitalized for further evaluation of their emergent condition. Critical Care patient: No - Discharge Referral Referred to [facility] Med P.C.: No
[2018-10-26] MEDS ORDERED: PT OWN MED DRAWER 7, Y5N ONE (10:49)
[2018-10-26] MEDS: amLODIPine BESYLATE 10 MG TABLET (FP) PO SCH (10:56)
[2018-10-26] MEDS: EZETIMIBE 10 MG TABLET (FP) PO SCH (10:56)
[2018-10-26] MEDS: CEPHALEXIN MONOHYDRATE 250 MG CAPSULE (FP) PO SCH (10:57)
[2018-10-26] MEDS: CLOPIDOGREL BISULFATE 75 MG TABLET (FP) PO SCH (10:57)
[2018-10-26] MEDS: BACITRACIN/POLYMYXIN B SULFATE 15 GM TUBE TP SCH (10:58)
--- NOTE | 2018-10-26 11:23 | PN ---
Progress Note (short form) - Note Progress Note: s: no cp sob palps dizzy; le edema improved o: Vital Signs Period Temp Pulse Resp BP Sys/Mckeon Pulse Ox Last 24 Hr 97.8 F-98.1 F 60-71 18-20 106-135/5-64 95 Constitutional: Yes: Well Nourished, No Distress, Calm Eyes: Yes: Conjunctiva Clear Neck: Yes: Supple, Trachea Midline Respiratory: Yes: Regular, CTA Bilaterally Gastrointestinal: Yes: Normal Bowel Sounds, Soft Cardiovascular: Yes: Regular Rate and Rhythm JVD: No Heart Sounds: Yes: S1, S2 Edema trace le edema bl Neurological: Yes: Alert, Oriented Psychiatric: Yes: Alert, Oriented Current Medications Generic Name Dose Route Start Last Admin Trade Name Freq PRN Reason Stop Dose Admin Acetaminophen 650 mg 10/24/18 11:48 Tylenol - PO Q6H PRN PAIN LEVEL 1-5 Amlodipine Besylate 10 mg 10/23/18 10:00 10/25/18 10:49 Norvasc - PO 10 mg DAILY JASMYN Administration Bacitracin/Polymyxin B Sulfate 1 applic 10/24/18 17:45 10/25/18 10:49 Polysporin Ointment - TP 1 applic DAILY JASMYN Administration Cephalexin HCl 250 mg 10/22/18 22:00 10/25/18 21:30 Keflex - PO 250 mg BID JASMYN Administration Clopidogrel Bisulfate 75 mg 10/23/18 10:00 10/25/18 10:49 Plavix - PO 75 mg DAILY JASMYN Administration Ezetimibe 10 mg 10/25/18 10:00 10/25/18 10:49 Zetia - PO 10 mg DAILY JASMYN Administration Furosemide 80 mg 10/23/18 11:15 10/25/18 10:49 Lasix Injection - IVPB 80 mg DAILY JASMYN Administration Heparin Sodium (Porcine) 5,000 unit 10/23/18 06:00 10/26/18 05:46 Heparin - SQ Not Given TID [facility] Insulin Aspart 1 vial 10/22/18 22:00 10/26/18 06:17 Novolog Vial Sliding Scale - SQ Not Given ACHS [facility] Protocol Insulin Aspart 10 units 10/24/18 16:30 10/26/18 06:16 Novolog SQ Not Given TIDAC [facility] Insulin Detemir 30 units 10/23/18 08:30 10/26/18 06:19 Levemir Vial SQ 30 units BID@0700,2200 JASMYN Administration Rosuvastatin Calcium 10 mg 10/24/18 22:00 10/25/18 21:30 Crestor - PO 10 mg HS JASMYN Administration CBC, BMP 10/24/18 06:50 10/26/18 05:15 Assessment/Plan EKG: sinus bradycardia, no ischemic changes, nonspecific T wave changes Echo 02/2017 tds, nl LV/RV function, E/A reversal, mild brock atrial enlargement echo 10/2018: tds; nl lv, rv tds, mild tr, nl rvsp, mild-mod pr CXR: no acute process tele: sinus, artifact 83F h/o CKD, HTN, HLD, CAD, h/o TIA, PVD, uncontrolled DM p/w shortness of breath, edema. Acute diastolic CHF exacerbation - improved vol status after iv lasix. can change to lasix po 80 bid now. will need labs check at snf to monitor chem7. - echo unremarkable HTN - continue home meds - would hold arb given ULISES CAD - s/p CABG (ROSENBERG-LAD, SVG-D1 2000), EDD to ROSENBERG-LAD and staged EDD to OM1 2011, RPDA stent 2013 with stable grafts in 2013 - not on bb due to history of bradycardia - continue plavix - was not taking statin as prescribed while in [place], restarted h/o TIA - on plavix PVD - continue plavix, statin ULISES on CKD - likely cardiorenal, cr stable cardiac osorio ok for snf
[2018-10-26] MEDS ORDERED: FUROSEMIDE 40 MG TABLET (FP) PO ONE (12:15)
[2018-10-26] MEDS: FUROSEMIDE 40 MG/4 ML INJECTABLE VIAL IVPB SCH (12:18)
[2018-10-26 14:53] VITALS: BP 125/53; PULSE 67; TEMP 98.5
[2018-10-27] MEDS ORDERED: FUROSEMIDE 40 MG TABLET (FP) PO SCH (06:00)
== END 2018-10-26 15:40 | DRG 682 ==
LOC: JER 15:51 → JERBED 20:09 → J4S 10-23 03:54
PROVIDERS: ADMIT Internal Medicine; ATTEND Hospitalist
DX: N17.9 Acute kidney failure, unspecified (principal); I50.33 Acute on chronic diastolic (congestive) heart failure; I13.0 Hypertensive heart and chronic kidney disease with heart failure and stage 1 through stage 4 chronic kidney disease, or unspecified chronic kidney disease; Z68.41 Body mass index [BMI] 40.0-44.9, adult; N18.4 Chronic kidney disease, stage 4 (severe); I25.10 Atherosclerotic heart disease of native coronary artery without angina pectoris; Z98.61 Coronary angioplasty status; Z95.1 Presence of aortocoronary bypass graft; K21.9 Gastro-esophageal reflux disease without esophagitis; E11.65 Type 2 diabetes mellitus with hyperglycemia; E78.5 Hyperlipidemia, unspecified; E11.22 Type 2 diabetes mellitus with diabetic chronic kidney disease; E66.01 Morbid (severe) obesity due to excess calories
CPT/HCPCS: 36415; 71045-TC-FY; 80048; 80053; 80061; 80307; 82550; 82962; 83036; 83721; 83735; 83880; 83970; 84100; 84439; 84443; 84484; 85025; 85027; 85610; 93005; 93010; 93306-TC; 93970-TC; 97116-GP; 97162-GP; 99283-25; J0131; J1644

== ENCOUNTER 2019-02-27 09:59 | Emergency (ER) | payer OTHER, MEDICARE ==
[2019-02-27 10:17] VITALS: TEMP 98; BMI 38.1
--- NOTE | 2019-02-27 10:38 | PDOC ---
History of Present Illness - General Chief Complaint: Injury Stated Complaint: FINGER LACERATIN Time Seen by Provider: 02/27/19 10:20 History Source: Patient, EMS, Residential Records Exam Limitations: No Limitations - History of Present Illness Initial Comments: 02/27/19 10:24 83YOF with h/o CAD (s/p PCI in 2011 with 4 stents), [place] (2010), CVA (right side deficit), CHF, HTN, HLD, DM, GERD, renal insufficiency, B12 Deficiency, chronic low back pain, OA (left knee severe), spinal stenosis who was BIBEMS from her NH for right middle finger laceration from an unwitnessed fall which she sustained while reaching over to grab something while trying to go to the bathroom. She denies any preceding symptoms (no lightheadedness, chest pain, headache, vision changes, numbness, tingling, weakness, SOB, or other symptoms) and did not lose consciousness, but she does note having hit her head lightly. She denies neck pain or any other subsequent symptoms other than finger pain and laceration. Past History - Past Medical History Allergies/Adverse Reactions: Allergies Allergy/AdvReac Type Severity Reaction Status Date / Time codeine [Codeine] Allergy Verified 03/20/18 12:57 Home Medications: Ambulatory Orders Cephalexin [Keflex] 250 mg PO BID 02/08/18 Clopidogrel Bisulfate [Plavix] 75 mg PO DAILY 02/08/18 Insulin Aspart [Novolog Flexpen] 20 unit SQ TID 02/08/18 Sitagliptin Phosphate [Januvia] 75 mg PO DAILY 02/08/18 Amlodipine Besylate [Norvasc -] 10 mg PO DAILY 03/20/18 Insulin (Levemir) [Levemir Vial] 30 units SQ BID 10/23/18 Ezetimibe [Zetia -] 10 mg PO DAILY tablet 10/26/18 Furosemide [Lasix] 80 mg PO BID #60 tablet 10/26/18 Insulin Sliding Scale [Novolog Vial Sliding Scale -] 1 vial SQ ACHS units 10/26 Rosuvastatin [Crestor -] 10 mg PO HS tablet 10/26/18 Anemia: Yes Asthma: No Cancer: No Cardiac Disorders: Yes ([place]) CVA: Yes (CVA 22 YRS AGO - (R)SIDED WEAKNESS) COPD: No CHF: Yes Dementia: No Diabetes: Yes (IDDM) GI Disorders: No Disorders: Yes (CHRONIC UTI'S) HTN: Yes Hypercholesterolemia: Yes Liver Disease: No Seizures: No Thyroid Disease: No - Surgical History Abdominal Surgery: No Appendectomy: No Cardiac Surgery: Yes (BYPASS 2011, ENDARDERECTOMY, 2 STENTS) Cholecystectomy: Yes Lung Surgery: No Neurologic Surgery: No Orthopedic Surgery: No - Immunization History Immunization Up to Date: No - Psycho Social/Smoking Cessation Hx Smoking Status: No Smoking History: Unknown if ever smoked Have you smoked in the past 12 months: No Number of Cigarettes Smoked Daily: 0 Information on smoking cessation initiated: No Hx Alcohol Use: No Drug/Substance Use Hx: No Substance Use Type: None Hx Substance Use Treatment: No Review of Systems - Review of Systems Able to Perform ROS?: Yes Comments:: 02/27/19 10:38 GEN: no fever, chills, night sweats, generalized weakness, malaise, or unintentional weight change HEENT: no ear pain, congestion, sore throat, rhinorrhea, nosebleed, vision change, or eye pain CV: no chest pain, palpitations, lightheadedness, syncope, edema, or exercise intolerance RESP: no cough, wheezing, or SOB GI: no abdominal pain, nausea, vomiting, diarrhea, constipation, appetite change , or white/black/bloody stool : no dysuria, hematuria, frequency, incontinence, retention, pruritis, bleeding, or discharge MSK: finger injury, no muscle weakness or pain, no muscle wasting, no joint swelling or pain NEURO: no headache, seizure, vertigo, imbalance, numbness, tingling, focal weakness, or difficulty walking/talking PSYCH: no insomnia, behavior change, SI, HI, or substance use SKIN: no prutitis, excessive dryness, jaundice, rash, cuts, or unexplained bruises ROS otherwise negative except as noted in HPI *Physical Exam - Vital Signs Last Vital Signs Temp Pulse Resp BP Pulse Ox 98.0 F 72 16 130/60 98 02/27/19 10:10 02/27/19 10:10 02/27/19 10:10 02/27/19 10:10 02/27/19 10:10 - Physical Exam Comments: 02/27/19 10:40 GENERAL: well-appearing pleasant elderly female, A/Ox4, no distress, answers questions appropriately HEENT: PERRLA, EOMI, moist mucous membranes NECK/BACK: no midline ttp, no spinal stepoff or deformity, no hematoma, full ROM , neck supple CARDIOVASCULAR: regular rate/rhythm, normal S1S2, no MGR, strong peripheral pulses, capillary refill <2 seconds, extremities wwp, no edema LUNGS/RESPIRATORY: no respiratory distress, CTAB GI/ABDOMEN: symmetric [id number], normoactive BS, soft, no ttp, no midline pulsatile masses : no CVA tenderness EXTREMITIES: right middle finger 3 cm total of irregular flap laceration into the finger pad pulp overlying the distal phalanx, no nail involvement, tissue is a bit ecchymotic but otherwise negative extremity exam with no muscle atrophy , no acute deformity SKIN: warm and dry, no pallor, no jaundice, no rash, no bruising, no skin breakdown, no cuts, no lesions NEUROLOGICAL: GCS 15, CN II-XII grossly intact, 5/5 strength proximally and distally, no facial droop Medical Decision Making - Medical Decision Making 02/27/19 10:29 83 YOF Pt p/w finger injury. Initial Vital Signs Temp Pulse Resp BP Pulse Ox 98.0 F 72 16 130/60 98 02/27/19 10:10 02/27/19 10:10 02/27/19 10:10 02/27/19 10:10 02/27/19 10:10 Exam: As noted in Physical Exam section. DDX IBNLT: simple avulsion, nailbed injury, subungal hematoma, open phalangeal fracture, tendon injury, foreign body, etc. W/U ordered: XR finger, CTH TX ordered: Tdap, Augmentin PO, lidocaine 1% wo epi for digital block. RAD/FINGER(S) RIGHT X-ray fingers: Indication: Status post traumatic injury Prior: None Procedure: Multiple views of the fingers of the right hand are submitted for evaluation. Findings: There is bandaging material over distal aspect of the ring finger where there is gross soft tissue defect. In addition there is underlying tuft fracture however no gross retained foreign body or identified. Degenerative changes are noted in the interphalangeal joints consistent with osteoarthropathy. IMPRESSION: Underlying osteoarthropathy with evidence of traumatic avulsion injury of distal aspect of ring finger with associated distal tuft fracture. CT/HEAD CT WITHOUT CONTRAST Status post head trauma. CT scan of the head without intravenous contrast Compared to prior examination dated 02/08/2018 There is generalized volume loss with moderate ventricular dilatation and moderate to marked periventricular chronic microvascular ischemic disease changes. Focal encephalomalacia/chronic infarct again seen in the right frontal lobe at the level of the right centrum semiovale. Otherwise , no mass lesion, gross acute infarct or intracranial hemorrhage are identified. There is no shift of the midline structures. The calvarium is intact. Visualized paranasal sinuses and mastoid air cells are well aerated. Calcification of the cavernous carotid arteries are present. The calvarium is intact IMPRESSION: No significant interval change or acute intracranial pathology is identified After digital block of right ring finger, improved exam shows near-complete avulsion of fingerpad into pulp overlying distal phalanx. There is bone exposed with visible tuft fracture. [id number] tissue is devitalized, no cap refill, dusky, cool. [facility] does not have plastics or hand char conveyor tender and patient warrants transfer to tertiary care center. 02/27/19 13:24 The Pt is unsafe for discharge at this time. They require further hospital observation, workup, and treatment. Transfer center called and connected with admitting provider. Pt to be transferred to: [facility] Pt accepted in transfer to: Transfer paperwork completed and signed by all indicated parties. EMS crew arrives and transfers Pt to ambulance without issue. Discharge - Discharge Information Problems reviewed: Yes Clinical Impression/Diagnosis: Open fracture of tuft of distal phalanx of finger, Fall from ground level Closed head injury Qualifiers: Encounter type: initial encounter Qualified Code(s): S09.90XA - Unspecified injury of head, initial encounter Condition: Guarded Disposition: TRANSFER ACUTE CARE/OTHER HOSP - Follow up/Referral Referrals: Deric Hua MD [Primary Care Provider] - - Patient Discharge Instructions - Post Discharge Activity - Transfer to Acute Care Facility Receiving Facility Name: [facility] ([facility] [place] Accepting Physician:: Rodolfo
[2019-02-27] MEDS ORDERED: TETANUS AND DIPHTHERIA TOXOID 0.5 ML DISP.SYRIN IM ONE (10:52)
[2019-02-27] MEDS ORDERED: DIPHTH,PERTUSS(ACELL),TET 0.5 ML DISP.SYRIN IM ONE ×2 (12:33→12:37)
[2019-02-27] MEDS ORDERED: AMOX TR/POT CLAV 875MG/125MG TABLETS (FP) PO ONE (13:08)
--- NOTE | 2019-02-27 13:29 | PDOC ---
Documentation entered by Lindsay Rivera SCRIBE, acting as scribe for Jorden Faulkner MD. Jorden Faulkner MD: This documentation has been prepared by the Nicole james Sammi, SCRIBE, under my direction and personally reviewed by me in its entirety. I confirm that the documentation accurately reflects all work, treatment, procedures, and medical decision making performed by me. Attending Attestation - Resident Resident Name: KolbCharmaine - ED Attending Attestation I have performed the following: I have examined & evaluated the patient, The case was reviewed & discussed with the resident, I agree w/resident's findings & plan, Exceptions are as noted - HPI HPI: 02/27/19 11:02 The patient is an 83 year old female who presents to the emergency department for evaluation s/p unwitnessed fall with a right middle finger laceration. The patient states she was reaching for her call button when she rolled off the bed. She notes lightly hitting her head but she can not recall on what. Denies LOC. She presents complaining of right middle finger pain and bleeding. The patient denies chest pain, SOB, headache, or lightheadedness prior to event. Allergies: codeine PMH: CAD (s/p PCI in 2011 with 4 stents), CT (2010), CVA (right side deficit), CHF, HTN, HLD, DM, GERD, renal insufficiency, B12 Deficiency, chronic low back pain, OA (left knee severe), spinal stenosis PCP: Deric Hua - Physicial Exam PE: 02/27/19 16:23 Vitals: Triage Vital signs reviewed General Appearance: No acute distress, well nourished well developed, Head: Atraumatic, Eyes: Pupils equal reactive round, extraocular movement intact Cardiac: Regular rate and rhythym, no murmurs, no rubs, no gallops, Lungs: Clear to auscultation bilateral, good air movement bilaterally, Abdomen: Soft, non distended, normal bowel sounds, non tender to palpation Extremities: Right ring finger with large flap laceration likely involving the nailbed with exposed bone Skin: Warm and dry, no rashes or lesions, no rash, no petechiae Neuro: AOX3; cranial Nerves 2-12 grossly intact, strength intact to all extremities, sensation intact to all extremities, gait normal Psych: Normal mood, normal affect - Medical Decision Making 02/27/19 13:29 83 years old with near complete flap/degloving injury to middle finger with nailbed involvement and underlying fracture We do not have plastics or hand on-call at our facility patient will require transfer to [facility] for definitive management. Augmentin given. Tetanus updated.
[2019-02-27 14:09] VITALS: BP 164/80; PULSE 72
[2019-02-27] MEDS ORDERED: AMOX TR/POT CLAV 875MG/125MG TABLETS (FP) ONE (14:23)
== END 2019-02-27 14:50 | disposition short-term general hospital (02) ==
LOC: JER 09:59
PROC: 3E0234Z Introduction of Serum, Toxoid and Vaccine into Muscle, Percutaneous Approach (ICD-10-PCS; principal; 2019-02-27)
DX: S09.90XA Unspecified injury of head, initial encounter (principal); S62.664A Nondisplaced fracture of distal phalanx of right ring finger, initial encounter for closed fracture; W18.39XA Other fall on same level, initial encounter; Y93.89 Activity, other specified; Y92.129 Unspecified place in nursing home as the place of occurrence of the external cause; I25.10 Atherosclerotic heart disease of native coronary artery without angina pectoris; Z95.5 Presence of coronary angioplasty implant and graft; I25.2 Old myocardial infarction; Z86.73 Personal history of transient ischemic attack (TIA), and cerebral infarction without residual deficits; I50.9 Heart failure, unspecified; I10 Essential (primary) hypertension; E78.5 Hyperlipidemia, unspecified; E11.9 Type 2 diabetes mellitus without complications; K21.9 Gastro-esophageal reflux disease without esophagitis; N28.9 Disorder of kidney and ureter, unspecified; E53.8 Deficiency of other specified B group vitamins; G89.29 Other chronic pain; M54.5 Low back pain; M19.90 Unspecified osteoarthritis, unspecified site; M48.00 Spinal stenosis, site unspecified
CPT/HCPCS: 70450-TC; 73140-TC-RT-FY; 90715; 99283-25

== ENCOUNTER 2019-05-15 13:55 | Inpatient (IN) | payer OTHER, MEDICARE ==
[2019-05-15 15:00] LABS: BASO % 1.1 % (0-2.0); HEMATOCRIT 38.2 % (32.4-45.2); HEMOGLOBIN 12.4 GM/dL (10.7-15.3); LYMPH % 29.7 % (8-40); MCH 29.4 pg (25.7-33.7); MCHC 32.4 g/dl (32.0-36.0); MEAN CELL VOLUME 90.6 fl (80-96); MEAN PLT VOLUME 10.5 fl (7.5-11.1); MONO % 4.9 % (3.8-10.2); NEUT % 62.3 % (42.8-82.8); PLATELET COUNT 297 K/MM3 (134-434); RBC 4.21 M/mm3 (3.60-5.2); RDW 15.1 % (11.6-15.6); VENOUS PC02 55.1 mmHg (38-52); VENOUS PH 7.26 (7.31-7.41); WHITE BLOOD COUNT 8.4 K/mm3 (4.0-10.0)
[2019-05-15 15:01] LABS: VENOUS PO2 < 49 mmHg (28-48)
[2019-05-15 15:03] LABS: EPI CELLS 1.5 /HPF (0-5/HPF); HYALINE CASTS 1 /lpf (0-8); PH,URINE 6.5 (5.0-8.0); URINE APPEARANCE CLOUDY; URINE BACTERIA 4551.5 /hpf (NEGATIVE); URINE BILIRUBIN NEGATIVE (NEGATIVE); URINE COLOR YELLOW; URINE GLUCOSE (UA) 3+ (NEGATIVE); URINE KETONE NEGATIVE (NEGATIVE); URINE LEUK ESTERASE 1+ (NEGATIVE); URINE NITRITE NEGATIVE (NEGATIVE); URINE PROTEIN 3+ (NEGATIVE); URINE RBC 5 /hpf (0-4); URINE UROBILINOGEN 0.2 mg/dL (0.2-1.0); URINE WBC 278 /hpf (0-5)
[2019-05-15] MEDS ORDERED: CEFTRIAXONE 1 GM in DEXTROSE 5%-WATER - 100 ML IVPB ONE (15:34)
[2019-05-15] MEDS ORDERED: SODIUM CHLORIDE 0.9% 1000 ML INFUS.BAG IV ONE ×2 (15:34→15:55)
[2019-05-15 15:44] LABS: BILIRUBIN,TOTAL 0.3 mg/dL (0.2-1); CALCIUM 8.5 mg/dL (8.5-10.1); POTASSIUM 4.9 mmol/L (3.5-5.1); TOT PROT 6.2 g/dl (6.4-8.2)
[2019-05-15] MEDS ORDERED: VANCOMYCIN 1 GM in D5W (PRE-DOCKED) 1,000 MG/250 ML IVPB ONE (15:57)
[2019-05-15] MEDS ORDERED: amLODIPine BESYLATE 10 MG TABLET (FP) PO ONE (15:59)
[2019-05-15] MEDS ORDERED: ACETAMINOPHEN 1000 MG/100 ML VIAL (NON FORMULARY) IVPB ONE (15:59)
[2019-05-15] MEDS ORDERED: INSULIN (NOVOLOG) ASPART 100 UNITS/ML 10ML VIAL SQ ONE (16:15)
--- NOTE | 2019-05-15 16:19 | PDOC ---
History of Present Illness - General Chief Complaint: Blood Sugar Problem Stated Complaint: HYPOGLYCEMIA Time Seen by Provider: 05/15/19 15:24 History Source: Patient - History of Present Illness Initial Comments: 83 y/o F, pmh of CAD s/p CABG and PCI in 2014, d-chf, htn, hld, IDDM, CKD stage 3, PVD, OS, GERD presents to the ED for elevated sugars to the 500s as per pt and EMS. Pt reports that she has a visiting nurse that checks her sugars at home which was elevated to the 500s and she was brought in. Pt reports that her sugars remain elevated for the past week even with her insulin. She admits to taking her medications including her insulin at 1pm today, however, as per chart review, she has been noncompliant with her meds in the past. On admission she was also found to have elevated BP to the 200s systolic and UTI on UA. Admits to mild chest pain earlier which has now resolved. Denies f/c/n/v/sob/d/ abdominal pain. 05/15/19 16:17 05/15/19 16:25 05/15/19 16:33 Is this a multiple visit Asthma Patient?: No Associated Symptoms: reports: denies symptoms. denies: chest pain, cough, diaphoresis, fever/chills, headaches, nausea/vomiting, shortness of breath Past History - Travel Traveled outside of the country in the last 30 days: No Close contact w/someone who was outside of country & ill: No - Past Medical History Allergies/Adverse Reactions: Allergies Allergy/AdvReac Type Severity Reaction Status Date / Time codeine [Codeine] Allergy Verified 03/20/18 12:57 Home Medications: Ambulatory Orders Cephalexin [Keflex] 250 mg PO BID 02/08/18 Clopidogrel Bisulfate [Plavix] 75 mg PO DAILY 02/08/18 Insulin Aspart [Novolog Flexpen] 20 unit SQ TID 02/08/18 Sitagliptin Phosphate [Januvia] 75 mg PO DAILY 02/08/18 Amlodipine Besylate [Norvasc -] 10 mg PO DAILY 03/20/18 Insulin (Levemir) [Levemir Vial] 30 units SQ BID 10/23/18 Ezetimibe [Zetia -] 10 mg PO DAILY tablet 10/26/18 Furosemide [Lasix] 80 mg PO BID #60 tablet 10/26/18 Insulin Sliding Scale [Novolog Vial Sliding Scale -] 1 vial SQ ACHS units 10/26 Rosuvastatin [Crestor -] 10 mg PO HS tablet 10/26/18 Anemia: Yes Asthma: No Cancer: No Cardiac Disorders: Yes ([place]) CVA: Yes (CVA 22 YRS AGO - (R)SIDED WEAKNESS) COPD: No CHF: Yes Dementia: No Diabetes: Yes (IDDM) GI Disorders: No Disorders: Yes (CHRONIC UTI'S) HTN: Yes Hypercholesterolemia: Yes Liver Disease: No Seizures: No Thyroid Disease: No - Surgical History Abdominal Surgery: No Appendectomy: No Cardiac Surgery: Yes (BYPASS 2011, ENDARDERECTOMY, 2 STENTS) Cholecystectomy: Yes Lung Surgery: No Neurologic Surgery: No Orthopedic Surgery: No - Immunization History Immunization Up to Date: No - Psycho Social/Smoking Cessation Hx Smoking Status: No Smoking History: Never smoked Have you smoked in the past 12 months: No Number of Cigarettes Smoked Daily: 0 Information on smoking cessation initiated: No Hx Alcohol Use: No Drug/Substance Use Hx: No Substance Use Type: None Hx Substance Use Treatment: No Review of Systems - Review of Systems Able to Perform ROS?: Yes Is the patient limited Greek proficient: No Constitutional: Yes: Symptoms Reported, Weight Stable. No: Chills, Diaphoresis , Fever, Weakness HEENTM: Yes: Symptoms Reported, Mouth Pain. No: Blurred Vision Respiratory: Yes: Symptoms reported. No: Cough, Orthopnea, Shortness of Breath , Wheezing, Productive cough Cardiac (ROS): Yes: Symptoms Reported, Chest Pain (mild chest pain now resolved) . No: Edema, Irregular Heart Rate, Palpitations, Chest Tightness ABD/GI: Yes: Symptoms Reported. No: Abdominal Distended, Constipated, Diarrhea , Nausea, Vomiting Musculoskeletal: Yes: Symptoms Reported. No: Back Pain Neurological: Yes: Symptoms reported. No: Headache, Numbness, Paresthesia *Physical Exam - Vital Signs Last Vital Signs Temp Pulse Resp BP Pulse Ox 98.0 F 62 19 167/67 96 05/15/19 14:18 05/15/19 14:18 05/15/19 14:18 05/15/19 14:18 05/15/19 14:18 - Physical Exam General Appearance: Yes: Nourished, Appropriately Dressed, Apparent Distress, Obese HEENT: positive: EOMI, CTAHIE, Normal ENT Inspection, Normal Voice, Pharynx Normal Neck: positive: Trachea midline, Normal Thyroid, Supple Respiratory/Chest: positive: Lungs Clear, Normal Breath Sounds. negative: Crackles, Rales, Wheezing Cardiovascular: positive: Regular Rhythm, Regular Rate, S1, S2. negative: Murmur, Gallop/S3, Gallop/S4 Vascular Pulses: Dorsalis-Pedis (R): 2+, Doralis-Pedis (L): 2+ Gastrointestinal/Abdominal: positive: Normal Bowel Sounds, Soft. negative: Guarding, Rebound, Tenderness Extremity: positive: Pedal Edema (3+ edema LE), Swelling Neurologic: positive: Fully Oriented, Alert, Normal Mood/Affect (mild confusion ) ED Treatment Course - LABORATORY CBC & Chemistry Diagram: 05/15/19 14:46 05/15/19 14:46 - ADDITIONAL ORDERS Additional order review: Laboratory Results 05/15/19 05/15/19 05/15/19 15:59 14:46 14:46 VBG pH 7.26 L POC VBG pCO2 55.1 H POC VBG pO2 < 49 H VBG HCO3 23.8 VBG O2 Sat ([place]) 57.3 L VBG Base Excess -3.5 L Sodium Potassium Chloride Carbon Dioxide Anion Gap BUN Creatinine Est GFR (CKD-EPI)AfAm Est GFR (CKD-EPI)NonAf POC Glucometer 451 Random Glucose Calcium Total Bilirubin AST ALT Alkaline Phosphatase Creatine Kinase Troponin I Total Protein Albumin Beta-Hydroxybutyrate Urine Color Yellow Urine Appearance Cloudy Urine pH 6.5 Ur Specific [place] 1.022 Urine Protein 3+ H Urine Glucose (UA) 3+ H Urine Ketones Negative Urine Blood Trace Urine Nitrite Negative Urine Bilirubin Negative Urine Urobilinogen 0.2 Ur Leukocyte Esterase 1+ H Urine WBC (Auto) 278 Urine RBC (Auto) 5 Urine Casts (Auto) 1 U Epithel Cells (Auto) 1.5 Urine Bacteria (Auto) 4551.5 05/15/19 05/15/19 05/15/19 14:46 14:46 14:46 VBG pH POC VBG pCO2 POC VBG pO2 VBG HCO3 VBG O2 Sat ([place]) VBG Base Excess Sodium 134 L Potassium 4.9 Chloride 103 Carbon Dioxide 23 Anion Gap 8 BUN 43.0 H Creatinine 2.0 H Est GFR (CKD-EPI)AfAm 25.92 Est GFR (CKD-EPI)NonAf 22.36 POC Glucometer Random Glucose 510 H* Calcium 8.5 Total Bilirubin 0.3 AST 27 ALT 26 Alkaline Phosphatase 98 Creatine Kinase 41 Troponin I 0.05 Total Protein 6.2 L Albumin 3.0 L Beta-Hydroxybutyrate 1.5 Cancelled Urine Color Urine Appearance Urine pH Ur Specific [place] Urine Protein Urine Glucose (UA) Urine Ketones Urine Blood Urine Nitrite Urine Bilirubin Urine Urobilinogen Ur Leukocyte Esterase Urine WBC (Auto) Urine RBC (Auto) Urine Casts (Auto) U Epithel Cells (Auto) Urine Bacteria (Auto) 05/15/19 05/15/19 15:59 14:46 RBC 4.21 MCV 90.6 MCHC 32.4 RDW 15.1 MPV 10.5 Neutrophils % 62.3 Lymphocytes % 29.7 Monocytes % 4.9 Eosinophils % 2.0 Basophils % 1.1 POC Glucometer 451 Medical Decision Making - Medical Decision Making 83 y/o F, pmh of CAD s/p CABG and PCI in 2013, d-chf, htn, hld, IDDM, CKD stage 3, PVD, OS, GERD presents to the ED for elevated sugars to the 500s as per pt and EMS #Hyperglycemia likely 2/2 to medication non compliance vs 2/2 to UTI UA positive for infection +1 LE UCx ordered r/p Finger stick gluc 456 2 bags of Fluids given Insulin 10 U given lactate ordered ABG ordered acidemia likely 2/2 infxn Vancomycin for UTI given #HTN urgency Norvac 10mg will reassess BP #Atypical chest pain EKG: NSR, T wave abnormality Aspirin 81 CXR ordered 05/15/19 16:37 05/15/19 16:39 05/15/19 16:41 Discharge - Discharge Information Problems reviewed: Yes Clinical Impression/Diagnosis: Hyperglycemia UTI (urinary tract infection) Qualifiers: Urinary tract infection type: site unspecified Hematuria presence: without hematuria Qualified Code(s): N39.0 - Urinary tract infection, site not specified Hypertension Qualifiers: Hypertension type: essential hypertension Qualified Code(s): I10 - Essential ( primary) hypertension Condition: Good - Admission Yes - Follow up/Referral - Patient Discharge Instructions - Post Discharge Activity
[2019-05-15] MEDS ORDERED: amLODIPine BESYLATE 5 MG TABLET (FP) ONE (16:31)
[2019-05-15] MEDS ORDERED: VANCOMYCIN 1 GRAM (PRE-DOCKED) 1,000 MG/250 ML BAG IVPB ONE (16:31)
[2019-05-15] MEDS ORDERED: ACETAMINOPHEN INJECTION 100 ML IVPB ONE (16:31)
--- NOTE | 2019-05-15 16:31 | PDOC ---
Documentation entered by Reggie Rhoades SCRIBE, acting as scribe for Veena Lanrdum DO. Veena Landrum DO: This documentation has been prepared by the Verona james Nirvannie, SCRIBE, under my direction and personally reviewed by me in its entirety. I confirm that the documentation accurately reflects all work, treatment, procedures, and medical decision making performed by me. Attending Attestation - Resident Resident Name: Willard Winkler - ED Attending Attestation I have performed the following: I have examined & evaluated the patient, The case was reviewed & discussed with the resident, I agree w/resident's findings & plan, Exceptions are as noted - HPI HPI: 05/15/19 16:51 The patient is an 84 year old female, with a significant past medical history of frequent UTIs (recently treated for 4 months with antibiotics), CAD (s/p CABG and PCI stenting 2013), diastolic CHF, HTN, HLD, IDDM, CKD Stage 3, PVD, OS , GERD, who presents to the emergency department with elevated blood glucose to the 500s. As per patient, her caregiver normally checks her blood sugar and it was found to be in the 500s. She notes her blood sugars are normally in the 210- 230s. She endorses associated dysuria and elevated blood pressure readings. Patient is questionably compliant with her medications. She denies recent fevers, chills, headache or dizziness. She denies recent nausea, vomiting, diarrhea or constipation. She denies recent frequency, urgency or hematuria. She denies recent chest pain or shortness of breath. Allergies: Codeine Primary Care Physician: Dr. Katz Urologist: Dr. Grant Medications per [facility] on [address] Gabapentin 100mg 2 capsules Q8H Plavix 75 mg Daily Zanaflex 2mg BID Vitamin D 43842 weekly Atorvastatin 80mg at bedtime Carvedilol 3.125 mg Daily Crestor 20 mg Daily Levemir 30 units BID No refill since 11/2018: Novolog 10 units TID - Physicial Exam PE: 05/15/19 16:53 Constitutional: Awake, alert, oriented. No acute distress. Head: Normocephalic. Atraumatic Eyes: PERRL. EOMI. Conjunctivae are not pale. ENT: Mucous membranes are moist and intact. Posterior pharynx without exudates or erythema. Uvula midline. Neck: Supple. Full ROM. No lymphadenopathy. Cardiovascular: Regular rate. Regular rhythm. S1, S2 regular. Distal pulses are 2+ and symmetric. Pulmonary/Chest: No evidence of respiratory distress. Clear to auscultation bilaterally No wheezing, rales or rhonchi. Abdominal: Soft and non-distended. There is no tenderness. No rebound, guarding or rigidity. No organomegaly. No palpable masses. Good bowel sounds. Back: No CVA tenderness. Musculoskeletal: +Bilateral LE pain no focal tenderness. No edema. No cyanosis. No clubbing. Full range of motion in all extremities. Radial/pedal pulses are intact and 2+ bilaterally Skin: Skin is warm and dry. No petechiae. No purpura. Neurological: Alert and oriented to person, place, and time. Cranial nerves II -XII are grossly intact. Normal speech. Strength is grossly symmetric. No sensory deficits. Psychiatric: Good eye contact. Normal interaction, affect and behavior. - Medical Decision Making 05/15/19 16:21 I, Dr. Veena Landrum, DO, attest that this document has been prepared under my direction and personally reviewed by me in its entirety. I further attest, that it accurately reflects all work, treatment, procedures and medical decision -making performed by me. a/p: 84yo female with hx of htn, hld, dm with enterococcus uti and ckd with elevated glu today and dysuria -no n/v/d -had cp earlier, but denies pain now -pt did not take her bp meds today and only used her insulin this am -states she checked her glu this am and it was >500 -pt c/o dysuria -suspect uti, has seen ficcazola in the past for enterococcus uti -labs sent reviewed, ckd at baseline, trop 0.05, elevated glu to 500, beta 1.5 -ua +uti -will start abx - vanco for uti -will admit for iv abx -also bp 206/99 will dose norvasc, will need repeat trop 05/15/19 16:56 resident discussed the case with eran who accepts pt to service pmd dr. mtaias Heart Score/ECG Review - ECG Intrepretation Comment:: 05/15/19 16:31 sinus at 63, 1st degree av block, poor r wave progression, nl acute st/t wave findings-abnl ekg
[2019-05-15] MEDS ORDERED: ASPIRIN 81 MG CHEWABLE TABLETS ONE (16:38)
[2019-05-15] MEDS: ASPIRIN 81 MG CHEWABLE TABLETS PO SCH (16:44)
[2019-05-15 17:08] LABS: ARTERIAL BLD GAS O2 SATURATION 95.2 % (95-98); ARTERIAL BLOOD GAS BASE EXCESS -3.7 meq/l (-2-2); ARTERIAL BLOOD GAS PCO2 40.8 mmHg (35-45); ARTERIAL BLOOD GAS PO2 79.9 mmHg (80-100); ARTERIAL BLOOD GAS pH 7.34 (7.35-7.45)
[2019-05-15 17:09] LABS: ALLENS TEST POSITIVE
[2019-05-15 17:11] LABS: CARBOXYHEMOGLOBIN 1.1 % (0-2)
[2019-05-15 18:50] VITALS: BMI 39.9
[2019-05-15] MEDS ORDERED: SODIUM CHLORIDE 1,000 ML IV STA (19:09)
--- NOTE | 2019-05-15 19:27 | HP ---
CHIEF COMPLAINT: Asymptomatic. Home FS 500+ PCP: Dr. 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 She states that earlier in the day she was at home with her and FAMILY LAW SPECIALIST. They were performing routing FS and noted, "high sugar." She denies any symptoms outside of bitter taste in the mouth. She denies WALLIS, vision changes, nausea, vomiting, diarrhea, abdominal pain, chills, and fever. She did not experience constipation, dysuria, or hematuria. She denies CP, SOB, and numbness/tingling except for chronic diabetic peripheral neuropathy. ER course was notable for: (1) IVF (2) 10 units insulin (3) Vancomycin given for possible UTI Recent Travel: Denies PAST MEDICAL HISTORY: HTN, HLD, insulin treated DM, CAD s/p CABG/PCIs, diastolic CHFpEF, PVD, CKD, OA, and GERD Family history: Mother and father never went to a doctor. Various family members have HTN and DM, no reports of cancer. PAST SURGICAL HISTORY: 4 stents placed, cholecystectomy, hysterectomy Social History: Smoking: denies Alcohol: denies Drugs: denies Allergies: codeine [Codeine] Allergy (Verified 03/20/18 12:57) HOME MEDICATIONS: Medication Instructions Recorded Clopidogrel Bisulfate [Plavix] 75 mg PO DAILY 02/08/18 Insulin Aspart [Novolog Flexpen] 20 unit SQ TID 02/08/18 Amlodipine Besylate [Norvasc -] 10 mg PO DAILY 03/20/18 Insulin (Levemir) [Levemir Vial] 30 units SQ BID 10/23/18 Insulin Sliding Scale [Novolog 1 vial SQ ACHS units 10/26/18 Vial Sliding Scale -] Rosuvastatin [Crestor -] 10 mg PO HS tablet 10/26/18 Atorvastatin Ca [Lipitor] 80 mg PO HS 05/15/19 Carvedilol 3.125 mg PO DAILY 05/15/19 Furosemide [Lasix] 80 mg PO DAILY 05/15/19 REVIEW OF SYSTEMS CONSTITUTIONAL: Absent: fever, chills, diaphoresis, generalized weakness, malaise, loss of appetite, weight change HEENT: Absent: rhinorrhea, nasal congestion, throat pain, throat swelling, difficulty swallowing, mouth swelling, ear pain, eye pain, visual changes CARDIOVASCULAR: Absent: chest pain, syncope, palpitations, irregular heart rate, lightheadedness , peripheral edema RESPIRATORY: Absent: cough, shortness of breath, dyspnea with exertion, orthopnea, wheezing, stridor, hemoptysis GASTROINTESTINAL: Absent: abdominal pain, abdominal distension, nausea, vomiting, diarrhea, constipation, melena, hematochezia GENITOURINARY: Absent: dysuria, frequency, urgency, hesitancy, hematuria, flank pain, genital pain MUSCULOSKELETAL: Absent: myalgia, arthralgia, joint swelling, back pain, neck pain SKIN: Absent: rash, itching, pallor HEMATOLOGIC/IMMUNOLOGIC: Absent: easy bleeding, easy bruising, lymphadenopathy, frequent infections ENDOCRINE: Absent: unexplained weight gain, unexplained weight loss, heat intolerance, cold intolerance NEUROLOGIC: Absent: headache, focal weakness or paresthesias, dizziness, unsteady gait, seizure, mental status changes, bladder or bowel incontinence PSYCHIATRIC: Absent: anxiety, depression, suicidal or homicidal ideation, hallucinations. PHYSICAL EXAMINATION Vital Signs - 24 hr 05/15/19 05/15/19 05/15/19 14:18 16:55 17:07 Temperature 98.0 F 98.4 F Pulse Rate 62 Pulse Rate [ 64 Apical] Respiratory 19 19 Rate Blood Pressure 167/67 Blood Pressure 189/65 H [Right Arm] O2 Sat by Pulse 96 100 99 Oximetry (%) 05/15/19 05/15/19 18:37 18:51 Temperature 99.1 F Pulse Rate 60 Pulse Rate [ Apical] Respiratory 19 19 Rate Blood Pressure 156/55 L Blood Pressure [Right Arm] O2 Sat by Pulse 96 Oximetry (%) GENERAL: AOx3, in no acute distress, obese, Nepali speaking HEAD: NCAT EYES: STORMY, EOMI, conjunctiva clear. ENT: Ears normal, nares patent, oropharynx clear without exudates. Moist mucous membranes. NECK: Normal range of motion, supple without lymphadenopathy, JVD, or masses. LUNGS: CTAB. No wheezes. BL crackles at bases. No accessory muscle use. HEART: RRR s1 s2 ABDOMEN: Soft, obese, BS present in all 4 quadrants, non-distended, no JVD, MUSCULOSKELETAL: No bony deformities or tenderness. No CVA tenderness. UPPER EXTREMITIES: 2+ pulses, warm, well-perfused. No cyanosis. No clubbing. No peripheral edema. LOWER EXTREMITIES: 2+ pulses, warm, well-perfused. No calf tenderness. 1+ edema BL below knee NEUROLOGICAL: No focal deficits. Cranial nerves II-XII intact. Normal speech. Gait not appreciated. PSYCHIATRIC: Cooperative. Good eye contact. Appropriate mood and affect. SKIN: Warm, dry, normal turgor, no rashes or lesions noted, normal capillary refill. Laboratory Results - last 24 hr 05/15/19 05/15/19 05/15/19 14:46 14:46 14:46 WBC 8.4 RBC 4.21 Hgb 12.4 Hct 38.2 MCV 90.6 MCH 29.4 MCHC 32.4 RDW 15.1 Plt Count 297 MPV 10.5 Absolute Neuts (auto) 5.2 Neutrophils % 62.3 Lymphocytes % 29.7 Monocytes % 4.9 Eosinophils % 2.0 Basophils % 1.1 Nucleated RBC % 0 Anticoagulation Therapy Puncture Site ABG pH ABG pCO2 at Pt Temp ABG pO2 at Pt Temp ABG HCO3 ABG O2 Sat (Measured) ABG O2 Content ABG Base Excess Chandrakant Test VBG pH POC VBG pCO2 POC VBG pO2 VBG HCO3 VBG O2 Sat ([place]) VBG Base Excess Carboxyhemoglobin Methemoglobin O2 Delivery Device Oxygen Flow Rate Vent Mode Vent Rate Mechanical Rate Pressure Support Vent Sodium Potassium Chloride Carbon Dioxide Anion Gap BUN Creatinine Est GFR (CKD-EPI)AfAm Est GFR (CKD-EPI)NonAf POC Glucometer Random Glucose Lactic Acid Calcium Total Bilirubin AST ALT Alkaline Phosphatase Creatine Kinase 41 Troponin I 0.05 Total Protein Albumin Beta-Hydroxybutyrate Cancelled Urine Color Urine Appearance Urine pH Ur Specific [place] Urine Protein Urine Glucose (UA) Urine Ketones Urine Blood Urine Nitrite Urine Bilirubin Urine Urobilinogen Ur Leukocyte Esterase Urine WBC (Auto) Urine RBC (Auto) Urine Casts (Auto) U Epithel Cells (Auto) Urine Bacteria (Auto) 05/15/19 05/15/19 05/15/19 14:46 14:46 14:46 WBC RBC Hgb Hct MCV MCH MCHC RDW Plt Count MPV Absolute Neuts (auto) Neutrophils % Lymphocytes % Monocytes % Eosinophils % Basophils % Nucleated RBC % Anticoagulation Therapy Puncture Site ABG pH ABG pCO2 at Pt Temp ABG pO2 at Pt Temp ABG HCO3 ABG O2 Sat (Measured) ABG O2 Content ABG Base Excess Chandrakant Test VBG pH 7.26 L POC VBG pCO2 55.1 H POC VBG pO2 < 49 H VBG HCO3 23.8 VBG O2 Sat ([place]) 57.3 L VBG Base Excess -3.5 L Carboxyhemoglobin Methemoglobin O2 Delivery Device Oxygen Flow Rate Vent Mode Vent Rate Mechanical Rate Pressure Support Vent Sodium 134 L Potassium 4.9 Chloride 103 Carbon Dioxide 23 Anion Gap 8 BUN 43.0 H Creatinine 2.0 H Est GFR (CKD-EPI)AfAm 25.92 Est GFR (CKD-EPI)NonAf 22.36 POC Glucometer Random Glucose 510 H* Lactic Acid Calcium 8.5 Total Bilirubin 0.3 AST 27 ALT 26 Alkaline Phosphatase 98 Creatine Kinase Troponin I Total Protein 6.2 L Albumin 3.0 L Beta-Hydroxybutyrate 1.5 Urine Color Yellow Urine Appearance Cloudy Urine pH 6.5 Ur Specific [place] 1.022 Urine Protein 3+ H Urine Glucose (UA) 3+ H Urine Ketones Negative Urine Blood Trace Urine Nitrite Negative Urine Bilirubin Negative Urine Urobilinogen 0.2 Ur Leukocyte Esterase 1+ H Urine WBC (Auto) 278 Urine RBC (Auto) 5 Urine Casts (Auto) 1 U Epithel Cells (Auto) 1.5 Urine Bacteria (Auto) 4551.5 05/15/19 05/15/19 05/15/19 14:48 15:59 16:45 WBC RBC Hgb Hct MCV MCH MCHC RDW Plt Count MPV Absolute Neuts (auto) Neutrophils % Lymphocytes % Monocytes % Eosinophils % Basophils % Nucleated RBC % Anticoagulation Therapy Puncture Site ABG pH ABG pCO2 at Pt Temp ABG pO2 at Pt Temp ABG HCO3 ABG O2 Sat (Measured) ABG O2 Content ABG Base Excess Chandrakant Test VBG pH POC VBG pCO2 POC VBG pO2 VBG HCO3 VBG O2 Sat ([place]) VBG Base Excess Carboxyhemoglobin 1.1 Methemoglobin < 1.0 O2 Delivery Device Oxygen Flow Rate Vent Mode Vent Rate Mechanical Rate Pressure Support Vent Sodium Potassium Chloride Carbon Dioxide Anion Gap BUN Creatinine Est GFR (CKD-EPI)AfAm Est GFR (CKD-EPI)NonAf POC Glucometer 451 Random Glucose Lactic Acid 2.6 H* Calcium Total Bilirubin AST ALT Alkaline Phosphatase Creatine Kinase Troponin I Total Protein Albumin Beta-Hydroxybutyrate Urine Color Urine Appearance Urine pH Ur Specific [place] Urine Protein Urine Glucose (UA) Urine Ketones Urine Blood Urine Nitrite Urine Bilirubin Urine Urobilinogen Ur Leukocyte Esterase Urine WBC (Auto) Urine RBC (Auto) Urine Casts (Auto) U Epithel Cells (Auto) Urine Bacteria (Auto) 05/15/19 16:52 WBC RBC Hgb Hct MCV MCH MCHC RDW Plt Count MPV Absolute Neuts (auto) Neutrophils % Lymphocytes % Monocytes % Eosinophils % Basophils % Nucleated RBC % Anticoagulation Therapy No Result Required. Puncture Site Right radial ABG pH 7.34 L ABG pCO2 at Pt Temp 40.8 ABG pO2 at Pt Temp 79.9 L ABG HCO3 21.3 L ABG O2 Sat (Measured) 95.2 ABG O2 Content 15.4 ABG Base Excess -3.7 L Chandrakant Test Positive VBG pH POC VBG pCO2 POC VBG pO2 VBG HCO3 VBG O2 Sat ([place]) VBG Base Excess Carboxyhemoglobin Methemoglobin O2 Delivery Device Room air Oxygen Flow Rate No Vent Mode No Result Required. Vent Rate No Result Required. Mechanical Rate No Result Required. Pressure Support Vent No Result Required. Sodium Potassium Chloride Carbon Dioxide Anion Gap BUN Creatinine Est GFR (CKD-EPI)AfAm Est GFR (CKD-EPI)NonAf POC Glucometer Random Glucose Lactic Acid Calcium Total Bilirubin AST ALT Alkaline Phosphatase Creatine Kinase Troponin I Total Protein Albumin Beta-Hydroxybutyrate Urine Color Urine Appearance Urine pH Ur Specific [place] Urine Protein Urine Glucose (UA) Urine Ketones Urine Blood Urine Nitrite Urine Bilirubin Urine Urobilinogen Ur Leukocyte Esterase Urine WBC (Auto) Urine RBC (Auto) Urine Casts (Auto) U Epithel Cells (Auto) Urine Bacteria (Auto) CXR: No infiltrate, rotated to the R. mediastinum appears wide but film is rotated. EKG: NL rate. Sinus rhythm. TWI in I, and AVL, Nl [place], sinus . QTC 447. Old ekg with TWI in AVL. ASSESSMENT/PLAN: 84 y/o female PMH HTN, HLD, insulin treated DM, TIA, CAD s/p CABG/PCIs, diastolic CHFpEF, PVD, CKD, OA, and GERD presenting with elevated FS. She experienced some chest pain prior to arrival but resolved. She has no AG and b- OH-butyrate WNL. # Hyperglycemia - Gentle IVF (1L at 42 cc/hr), ISS, FSq6h. Plan for TIDAC tomorrow. - AG 8, beta hydroxybutyrate 1.5 (NL) # Pseudohyponatremia - Corrected Na is 143.2 # Asymptomatic pyuria - No dysuria - No CVA tenderness # diastolic CHFpEF - Hold lasix - Monitor on gentle hydration # DM - Hold home regimen - Gentle IVF (1L at 42 cc/hr), ISS, FSq6h. Plan for TIDAC tomorrow. # CAD, s/p CABG and stents. - Continue plavix - Continue statin # HTN - Cont. curent home regimen - Urgency in ED: given home dose norvasc 10 - Consider PO hydralazine 10 if systolic above 150. Caution with beta blockers considering h/o bradycardia # HLD - Cont. curent home regimen # F/E/N - NS gentlly IVF (1L at 42 cc/hr) - Cont. to monitor - DM/low Na diet # DVT prophylaxis - Heparin SQ # Disposition - Admit to med/surg James Davis MD Visit type - Emergency Visit Emergency Visit: Yes ED Registration Date: 05/15/19 Care time: The patient presented to the Emergency Department on the above date and was hospitalized for further evaluation of their emergent condition. - New Patient This patient is new to me today: Yes Date on this admission: 05/16/19 - Critical Care Critical Care patient: No ATTENDING PHYSICIAN STATEMENT I saw and evaluated the patient. I reviewed the resident's note and discussed the case with the resident. I agree with the resident's findings and plan as documented. SUBJECTIVE: OBJECTIVE: ASSESSMENT AND PLAN:
[2019-05-15] MEDS ORDERED: SODIUM CHLORIDE 1,000 ML IV SCH (19:30)
--- NOTE | 2019-05-15 19:52 | PN ---
Teaching Attending Note Name of Resident: James Davis ATTENDING PHYSICIAN STATEMENT I saw and evaluated the patient. I reviewed the resident's note and discussed the case with the resident. I agree with the resident's findings and plan as documented. SUBJECTIVE: CC: sent by home health aid due to hyperglycemia. HPI : [employer] [id number] was used. despite that poor historian she lives at home with her , she gets an aid most of the days, she felt dizzy while she was having food withher . she denies CP at any point. her home health aid checked her sugar today andn found it to be 500, so she sent venessa here. she denies any Abd pain, any any dysuria, she denies N/V. has no fever or chills. she was treated for UTI in past. her compliance with her meds is unknown. she reprots taking her meds daily. she reprots taking insulin TID but per last dc summary she was sent home on 30 of levemir BID. in ER she was found to have BP in 200 s, and sugar in 500s. she was given insulin and vanco and norvasc OBJECTIVE: NAD, awake, alert, cooperative and pleasant. HEENT: NC, AT, black discoloration of the tongue. Neuro : deformed R pupil, has round L pupil, reactive to light , no facial droop. EOMI. strength 5/5 in upper and lower extremities proximally and distally except for R hip flexion due to hip pain . CV: RRR, 3/6 SM all over the precordium , no radiation to carotids . No JVD Lungs: clear R lung, minimal bibasilar crackles at L base Ext : trace edema on feet. varicose veins . DP 1+ b/l Cxray reviewed. no infiltrate , rotated to the R. mediastinum appears wide but film is rotated. EKG with sinus rhythm, TWI in I, and AVL, Nl [place], sinus . QTC 447. old ekg with TWI in AVL. ASSESSMENT AND PLAN: 84 y/o lady with h/o CAD, s/p CABG, and stents, PVD,h/o bradycardia, HTN, HLP, poorly controlled DM, CKD 3, GERD, recurrent UTIs, diastolic heart failure, and other medical problems who presented with elevated sugars 1- Hyperglycemia: questionable compliance. no signs of DKA . no signs of infection . ( no urinary sx, despite pyuria) . - SSi - will confirm her home insulin dose and will give long acting Levemir tonight - diabetic teaching - might be slightly volume depleted will carefully and gently huydrate and monitor 2- pseudohyponatremia: corrected NA is 143.2 3- asymptomatic pyuria. will not treat 4- HTN urgency: BP in 200 in ER. given norvasc. now sBP 154 per floor RN. - will confirm and resume her home meds in am 5- H/o diastolic CHF: might be a little volume depleted today. hold lasix and monitor on gentle hydration 6- h/o CAD, s/p CABG and stents. - cont plavix - cont statin 7- DVT: Px : heparin SQ PT eval
[2019-05-15] MEDS: INSULIN SLIDING SCALE (NOVOLOG) 1 VIAL SQ SCH (20:22)
[2019-05-15] MEDS ORDERED: INSULIN SLIDING SCALE (NOVOLOG) 1 VIAL SQ SCH (22:00)
[2019-05-15] MEDS ORDERED: INSULIN (LEVEMIR) 100 UNITS/ML UNITS SQ ONE (22:00)
[2019-05-15] MEDS: ATORVASTATIN CA 80 MG TABLET (FP) PO SCH (22:28)
[2019-05-15] MEDS: HEPARIN NA (PORCINE) 5,000 UNITS/ML 1ML VIAL SQ SCH (22:30)
[2019-05-16] MEDS: INSULIN SLIDING SCALE (NOVOLOG) 1 VIAL SQ SCH ×4 (01:09→16:38)
[2019-05-16] MEDS: HEPARIN NA (PORCINE) 5,000 UNITS/ML 1ML VIAL SQ SCH ×3 (07:05→22:38)
[2019-05-16] MEDS: ASPIRIN 81 MG CHEWABLE TABLETS PO SCH (09:58)
[2019-05-16] MEDS: amLODIPine BESYLATE 10 MG TABLET (FP) PO SCH (09:58)
[2019-05-16] MEDS: CLOPIDOGREL BISULFATE 75 MG TABLET (FP) PO SCH (09:58)
[2019-05-16] MEDS: CARVEDILOL 3.125 MG TABLET (FP) PO SCH (09:58)
[2019-05-16] MEDS ORDERED: INSULIN (LEVEMIR) 100 UNITS/ML UNITS SQ SCH (10:00)
[2019-05-16 10:53] LABS: ALBUMIN 2.9 g/dl (3.4-5.0); BILIRUBIN,TOTAL 0.3 mg/dL (0.2-1); CALCIUM 8.8 mg/dL (8.5-10.1); CREATININE 1.7 mg/dL (0.55-1.3); MAGNESIUM 2.3 mg/dL (1.8-2.4); PHOSPHOROUS 3.2 mg/dL (2.5-4.9); POTASSIUM 4.2 mmol/L (3.5-5.1); TOT PROT 5.9 g/dl (6.4-8.2)
[2019-05-16 10:54] LABS: HEMATOCRIT 37.4 % (32.4-45.2); HEMOGLOBIN 12.2 GM/dL (10.7-15.3); MCH 29.5 pg (25.7-33.7); MCHC 32.7 g/dl (32.0-36.0); MEAN CELL VOLUME 90.4 fl (80-96); MEAN PLT VOLUME 10.7 fl (7.5-11.1); PLATELET COUNT 301 K/MM3 (134-434); RBC 4.14 M/mm3 (3.60-5.2); RDW 15.1 % (11.6-15.6); WHITE BLOOD COUNT 9.3 K/mm3 (4.0-10.0)
[2019-05-16] MEDS ORDERED: INSULIN (LEVEMIR) 100 UNITS/ML UNITS SQ ONE ×2 (11:45→13:44)
--- NOTE | 2019-05-16 14:10 | EKG ---
Test Reason : Blood Pressure : / mmHG Vent. Rate : 063 BPM Atrial Rate : 063 BPM P-R Int : 200 ms QRS Dur : 078 ms QT Int : 436 ms P-R-T Axes : 017 028 120 degrees QTc Int : 446 ms NORMAL SINUS RHYTHM ABNORMAL ECG Confirmed by LEVI BOWLES MD ([id number]) on 05/16/2019 2:09:26 PM Referred By: Confirmed By:LEVI BOWLES MD
--- NOTE | 2019-05-16 17:31 | PN ---
Addendum entered and electronically signed by James Davis, RESIDENT 08:47: Patient walked 20 feet with PT Original Note: Physical Exam: SUBJECTIVE: Patient seen and examined resting comfortably in bed. She offers no complaints this AM. OBJECTIVE: Vital Signs Period Temp Pulse Resp BP Sys/Mckeon Pulse Ox Last 24 Hr 97.5 F-99.1 F 60-77 18-19 135-159/52-66 96-96 GENERAL: AOx3, in no acute distress, obese, Mongolian speaking HEAD: NCAT EYES: STORMY, EOMI, conjunctiva clear. ENT: Ears normal, nares patent, oropharynx clear without exudates. Moist mucous membranes. NECK: Normal range of motion, supple without lymphadenopathy, JVD, or masses. LUNGS: CTAB. No wheezes. BL crackles at bases. No accessory muscle use. HEART: RRR s1 s2 ABDOMEN: Soft, obese, BS present in all 4 quadrants, non-distended, no JVD, MUSCULOSKELETAL: No bony deformities or tenderness. No CVA tenderness. UPPER EXTREMITIES: 2+ pulses, warm, well-perfused. No cyanosis. No clubbing. No peripheral edema. LOWER EXTREMITIES: 2+ pulses, warm, well-perfused. No calf tenderness. 1+ edema BL below knee NEUROLOGICAL: No focal deficits. Cranial nerves II-XII intact. Normal speech. Gait not appreciated. PSYCHIATRIC: Cooperative. Good eye contact. Appropriate mood and affect. SKIN: Warm, dry, normal turgor, no rashes or lesions noted, normal capillary refill. Laboratory Results - last 24 hr 05/15/19 05/15/19 05/15/19 14:48 20:00 20:00 WBC RBC Hgb Hct MCV MCH MCHC RDW Plt Count MPV Sodium Potassium Chloride Carbon Dioxide Anion Gap BUN Creatinine Est GFR (CKD-EPI)AfAm Est GFR (CKD-EPI)NonAf POC Glucometer Random Glucose Lactic Acid 2.6 H* 1.3 Calcium Phosphorus Magnesium Total Bilirubin AST ALT Alkaline Phosphatase Creatine Kinase 36 Troponin I 0.07 H Total Protein Albumin 05/15/19 05/16/19 05/16/19 20:12 00:50 01:05 WBC RBC Hgb Hct MCV MCH MCHC RDW Plt Count MPV Sodium Potassium Chloride Carbon Dioxide Anion Gap BUN Creatinine Est GFR (CKD-EPI)AfAm Est GFR (CKD-EPI)NonAf POC Glucometer 143 276 Random Glucose Lactic Acid Calcium Phosphorus Magnesium Total Bilirubin AST ALT Alkaline Phosphatase Creatine Kinase Troponin I 0.09 H Total Protein Albumin 05/16/19 05/16/19 05/16/19 07:04 09:50 09:50 WBC 9.3 RBC 4.14 Hgb 12.2 Hct 37.4 MCV 90.4 MCH 29.5 MCHC 32.7 RDW 15.1 Plt Count 301 MPV 10.7 Sodium 140 Potassium 4.2 Chloride 110 H Carbon Dioxide 25 Anion Gap 5 L BUN 33.0 H Creatinine 1.7 H Est GFR (CKD-EPI)AfAm 31.54 Est GFR (CKD-EPI)NonAf 27.22 POC Glucometer 190 Random Glucose 247 H Lactic Acid Calcium 8.8 Phosphorus 3.2 Magnesium 2.3 Total Bilirubin 0.3 AST 18 ALT 23 Alkaline Phosphatase 96 Creatine Kinase Troponin I 0.09 H Total Protein 5.9 L Albumin 2.9 L 05/16/19 05/16/19 11:42 16:30 WBC RBC Hgb Hct MCV MCH MCHC RDW Plt Count MPV Sodium Potassium Chloride Carbon Dioxide Anion Gap BUN Creatinine Est GFR (CKD-EPI)AfAm Est GFR (CKD-EPI)NonAf POC Glucometer 322 279 Random Glucose Lactic Acid Calcium Phosphorus Magnesium Total Bilirubin AST ALT Alkaline Phosphatase Creatine Kinase Troponin I Total Protein Albumin Active Medications Generic Name Dose Route Start Last Admin Trade Name Freq PRN Reason Stop Dose Admin Amlodipine Besylate 10 mg 05/16/19 10:00 05/16/19 09:58 Norvasc - PO 10 mg DAILY JASMYN Administration Aspirin 81 mg 05/15/19 16:31 05/16/19 09:58 Asa - PO 81 mg DAILY JASMYN Administration Atorvastatin Calcium 80 mg 05/15/19 22:00 05/15/19 22:28 Lipitor - PO 80 mg HS JASMYN Administration Carvedilol 3.125 mg 05/16/19 10:00 05/16/19 09:58 Coreg - PO 3.125 mg DAILY JASMYN Administration Clopidogrel Bisulfate 75 mg 05/16/19 10:00 05/16/19 09:58 Plavix - PO 75 mg DAILY JASMYN Administration Heparin Sodium (Porcine) 5,000 unit 05/15/19 22:00 05/16/19 13:55 Heparin - SQ 5,000 unit TID JASMYN Administration Insulin Aspart 1 vial 05/16/19 11:00 05/16/19 16:38 Novolog Vial Sliding Scale - SQ 4 units TIDAC JASMYN Administration Protocol ASSESSMENT/PLAN: 84 y/o female PMH HTN, HLD, insulin treated DM, TIA, CAD s/p CABG/PCIs, diastolic CHFpEF, PVD, CKD, OA, and GERD presenting with elevated FS. She experienced some chest pain prior to arrival but resolved. She has no AG and b- OH-butyrate WNL. Pt appears to be non-compliant with medications and needs assistance. She can benefit from an 8 hour SUSTAINABILITY CONSULTANT. She walked with PT for 10 feet and will need SNF care, where she may also learn how to care for her diabetes. # Hyperglycemia - Gentle IVF (1L at 42 cc/hr), ISS, FSq6h. Plan for TIDAC tomorrow. - AG 8, beta hydroxybutyrate 1.5 (NL) # Troponemia - Flat trend: 0.05, 0.07, 0.09, 0.09, 0.08 - Likely 2/2 demand ischemia and renal disease - F/u out-pt - Consider cardiology evaluation - Consider stress test # Pseudohyponatremia, resolved - Corrected Na is 143.2 # Asymptomatic pyuria - No dysuria - No CVA tenderness # diastolic CHFpEF - Hold lasix - Monitor on gentle hydration # DM - Hold home regimen - Gentle IVF (1L at 42 cc/hr), ISS, FSq6h. Plan for TIDAC tomorrow. # CAD, s/p CABG and stents. - Continue plavix - Continue statin # HTN/urgency - Cont. curent home regimen - Urgency in ED: given home dose norvasc 10 - Consider PO hydralazine 10 if systolic above 150. Caution with beta blockers considering h/o bradycardia # HLD - Cont. curent home regimen # F/E/N - NS gentlly IVF (1L at 42 cc/hr) - Cont. to monitor - DM/low Na diet # DVT prophylaxis - Heparin SQ # Disposition - Walked 10 feet with PT - Anticipate DC to SNF James Davis MD Visit type - Emergency Visit Emergency Visit: No - New Patient This patient is new to me today: No - Critical Care Critical Care patient: No ATTENDING PHYSICIAN STATEMENT I saw and evaluated the patient. I reviewed the resident's note and discussed the case with the resident. I agree with the resident's findings and plan as documented. SUBJECTIVE: OBJECTIVE: ASSESSMENT AND PLAN:
[2019-05-16] MEDS ORDERED: ACETAMINOPHEN 500 MG TABLET (FP) PO ONE (18:56)
--- NOTE | 2019-05-16 19:53 | PN ---
Teaching Attending Note Name of Resident: James Davis ATTENDING PHYSICIAN STATEMENT I saw and evaluated the patient. I reviewed the resident's note and discussed the case with the resident. I agree with the resident's findings and plan as documented. SUBJECTIVE: No fever or chills. No pain. No WALLIS. no abd pain . denies dysuria OBJECTIVE: NAD, awake, alert, cooperative and pleasant. MMM. speaks perfect Icelandic today CV: RRR, 3/6 SM all over the precordium, no radiation to carotids . No JVD Lungs: clear R lung, minimal bibasilar crackles at L base Ext: trace edema on feet. varicose veins. DP 1+ b/l ASSESSMENT AND PLAN: 84 y/o lady with h/o CAD, s/p CABG, and stents, PVD,h/o bradycardia, HTN, HLP, poorly controlled DM, CKD 3, GERD, recurrent UTIs, diastolic heart failure, and other medical problems who presented with elevated sugars 1- Hyperglycemia: questionable compliance. - will give 15 BID . ( home dose 30 BId , but not sure she is taking it ) - SSI - will try to switch to daily dosing of levemir tomorrow 2- pseudohyponatremia: resolved 3- asymptomatic bacteruria. will not treat 4- HTN urgency: resolved. cont home meds 5- H/o diastolic CHF:resume her home lasix tomorrow 6- H/o CAD, s/p CABG and stents. - cont plavix - cont statin 7- DVT Px: heparin SQ She requires rehab. from there home VNS need to be arranged for longer hours fro medications administration
[2019-05-16] MEDS: INSULIN (LEVEMIR) 100 UNITS/ML UNITS SQ SCH (22:36)
[2019-05-16] MEDS: ATORVASTATIN CA 80 MG TABLET (FP) PO SCH (22:39)
[2019-05-17] MEDS: HEPARIN NA (PORCINE) 5,000 UNITS/ML 1ML VIAL SQ SCH ×3 (06:59→22:24)
[2019-05-17] MEDS: INSULIN (LEVEMIR) 100 UNITS/ML UNITS SQ SCH (07:00)
[2019-05-17] MEDS: INSULIN SLIDING SCALE (NOVOLOG) 1 VIAL SQ SCH ×3 (07:02→17:16)
[2019-05-17] MEDS ORDERED: INSULIN (LEVEMIR) 100 UNITS/ML UNITS SQ ONE ×2 (07:44→08:18)
[2019-05-17 08:04] LABS: HEMATOCRIT 37.5 % (32.4-45.2); HEMOGLOBIN 12.4 GM/dL (10.7-15.3); MCH 29.6 pg (25.7-33.7); MCHC 33.1 g/dl (32.0-36.0); MEAN CELL VOLUME 89.6 fl (80-96); MEAN PLT VOLUME 10.3 fl (7.5-11.1); PLATELET COUNT 294 K/MM3 (134-434); RBC 4.19 M/mm3 (3.60-5.2); RDW 14.7 % (11.6-15.6)
[2019-05-17 08:18] LABS: ALBUMIN 2.8 g/dl (3.4-5.0); BILIRUBIN,TOTAL 0.4 mg/dL (0.2-1); BLOOD UREA NITROGEN 26.9 mg/dL (7-18); CALCIUM 9.1 mg/dL (8.5-10.1); CREATININE 1.7 mg/dL (0.55-1.3); MAGNESIUM 2.3 mg/dL (1.8-2.4); PHOSPHOROUS 3.2 mg/dL (2.5-4.9); TOT PROT 5.9 g/dl (6.4-8.2)
[2019-05-17] MEDS: CARVEDILOL 3.125 MG TABLET (FP) PO SCH (09:02)
[2019-05-17] MEDS: CLOPIDOGREL BISULFATE 75 MG TABLET (FP) PO SCH (09:02)
[2019-05-17] MEDS: ASPIRIN 81 MG CHEWABLE TABLETS PO SCH (09:02)
[2019-05-17] MEDS: FUROSEMIDE 40 MG TABLET (FP) PO SCH (09:02)
[2019-05-17] MEDS: amLODIPine BESYLATE 10 MG TABLET (FP) PO SCH (09:02)
--- NOTE | 2019-05-17 13:48 | PN ---
Physical Exam: SUBJECTIVE: Patient seen and examined resting comfortably in bed. Today she described x2 diarrhea. Stool is loose and she describes stool stress incontinence; when she coughs/sneezes, she soiled herself. OBJECTIVE: Vital Signs Period Temp Pulse Resp BP Sys/Mckeon Pulse Ox Last 24 Hr 97.7 F-98.9 F 63-68 18-20 143-165/62-81 97 GENERAL: AOx3, in no acute distress, obese, Slovenian speaking HEAD: NCAT EYES: STORMY, EOMI, conjunctiva clear. ENT: Ears normal, nares patent, oropharynx clear without exudates. Moist mucous membranes. NECK: Normal range of motion, supple without lymphadenopathy, JVD, or masses. LUNGS: CTAB. No wheezes. BL crackles at bases. No accessory muscle use. HEART: RRR s1 s2 ABDOMEN: Soft, obese, BS present in all 4 quadrants, non-distended, no JVD, MUSCULOSKELETAL: No bony deformities or tenderness. No CVA tenderness. UPPER EXTREMITIES: 2+ pulses, warm, well-perfused. No cyanosis. No clubbing. No peripheral edema. LOWER EXTREMITIES: 2+ pulses, warm, well-perfused. No calf tenderness. 1+ edema BL below knee NEUROLOGICAL: No focal deficits. Cranial nerves II-XII intact. Normal speech. Gait not appreciated. PSYCHIATRIC: Cooperative. Good eye contact. Appropriate mood and affect. SKIN: Warm, dry, normal turgor, no rashes or lesions noted, normal capillary refill. Laboratory Results - last 24 hr 05/16/19 05/16/19 05/16/19 16:30 17:00 22:33 WBC RBC Hgb Hct MCV MCH MCHC RDW Plt Count MPV Sodium Potassium Chloride Carbon Dioxide Anion Gap BUN Creatinine Est GFR (CKD-EPI)AfAm Est GFR (CKD-EPI)NonAf POC Glucometer 279 198 Random Glucose Calcium Phosphorus Magnesium Total Bilirubin AST ALT Alkaline Phosphatase Troponin I 0.08 H Total Protein Albumin 05/17/19 05/17/19 05/17/19 02:12 06:54 07:05 WBC 8.0 RBC 4.19 Hgb 12.4 Hct 37.5 MCV 89.6 MCH 29.6 MCHC 33.1 RDW 14.7 Plt Count 294 MPV 10.3 Sodium Potassium Chloride Carbon Dioxide Anion Gap BUN Creatinine Est GFR (CKD-EPI)AfAm Est GFR (CKD-EPI)NonAf POC Glucometer 169 184 Random Glucose Calcium Phosphorus Magnesium Total Bilirubin AST ALT Alkaline Phosphatase Troponin I Total Protein Albumin 05/17/19 05/17/19 07:05 12:01 WBC RBC Hgb Hct MCV MCH MCHC RDW Plt Count MPV Sodium 142 Potassium 4.0 Chloride 111 H Carbon Dioxide 25 Anion Gap 5 L BUN 26.9 H Creatinine 1.7 H Est GFR (CKD-EPI)AfAm 31.54 Est GFR (CKD-EPI)NonAf 27.22 POC Glucometer 290 Random Glucose 194 H Calcium 9.1 Phosphorus 3.2 Magnesium 2.3 Total Bilirubin 0.4 AST 19 ALT 23 Alkaline Phosphatase 94 Troponin I Total Protein 5.9 L Albumin 2.8 L Active Medications Generic Name Dose Route Start Last Admin Trade Name Freq PRN Reason Stop Dose Admin Acetaminophen 650 mg 05/17/19 12:19 Tylenol - PO Q6H PRN Fever Or Pain Amlodipine Besylate 10 mg 05/16/19 10:00 05/17/19 09:02 Norvasc - PO 10 mg DAILY JASMYN Administration Aspirin 81 mg 05/15/19 16:31 05/17/19 09:02 Asa - PO 81 mg DAILY JASMYN Administration Atorvastatin Calcium 80 mg 05/15/19 22:00 05/16/19 22:39 Lipitor - PO 80 mg HS JASMYN Administration Carvedilol 3.125 mg 05/16/19 10:00 05/17/19 09:02 Coreg - PO 3.125 mg DAILY JASMYN Administration Clopidogrel Bisulfate 75 mg 05/16/19 10:00 05/17/19 09:02 Plavix - PO 75 mg DAILY JASMYN Administration Furosemide 80 mg 05/17/19 10:00 05/17/19 09:02 Lasix - PO 80 mg DAILY JASMYN Administration Heparin Sodium (Porcine) 5,000 unit 05/15/19 22:00 05/17/19 06:59 Heparin - SQ 5,000 unit TID [facility] Administration Insulin Aspart 1 vial 05/16/19 11:00 05/17/19 12:04 Novolog Vial Sliding Scale - SQ 4 units TIDAC [facility] Administration Protocol Insulin Detemir 30 units 05/18/19 07:00 Levemir Vial SQ DAILY@0700 [facility] ASSESSMENT/PLAN: 84 y/o female PMH HTN, HLD, insulin treated DM, TIA, CAD s/p CABG/PCIs, diastolic CHFpEF, PVD, CKD, OA, and GERD presenting with elevated FS. She experienced some chest pain prior to arrival but resolved. She has no AG and b- OH-butyrate WNL. Pt appears to be non-compliant with medications and needs assistance. She can benefit from an [address] She walked with PT for 20 feet and will need SNF care, where she may also learn how to care for her diabetes. # Hyperglycemia, resolved - Gentle IVF (1L at 42 cc/hr), ISS, BGM TIDAC - Levemir home dose 30 mg PO BID though likely pt non-compliant/unable to administer appropriately - Initiated levemir 15 mg PO BID but to increase adherence, will continue Levemir 30 mg PO QD - Working with case management to get COURT CRIER for 8 hours a day so that someone can help manage insulin regimen TIDAC at home; plan for ISS at home. - AG 8, beta hydroxybutyrate 1.5 (NL) # Leg pain - Pt reports long standing leg pain - One time acetominophen relieved pain - Acetominophen available PRN # Diarrhea - No assoc. symptoms - C diff NEGATIVE # Troponemia, resolved - Flat trend: 0.05, 0.07, 0.09, 0.09, 0.08 - Likely 2/2 demand ischemia and renal disease - F/u out-pt - Consider cardiology evaluation - Consider stress test # Pseudohyponatremia, resolved - Corrected Na is 143.2 # Asymptomatic pyuria - No dysuria - No CVA tenderness # diastolic CHFpEF - Furosemide 80 mg P QD - Carvedilol 3.125 mg PO QD # CAD, s/p CABG and stents. - Continue clopidogrel 75 mg P QD - Continue atorvastatin 80 mg PO HS - Continue aspirin 81 mg PO QD # HTN/urgency - Cont. curent home regimen, amlodepine 10 mg PO QD - Urgency in ED: given home dose norvasc 10 - Consider PO hydralazine 10 if systolic above 150. Caution with beta blockers considering h/o bradycardia # HLD - Cont. curent home regimen # F/E/N - PO - Cont. to monitor - DM/low Na diet # DVT prophylaxis - Heparin SQ # Disposition - Anticipate DC to SNF. Patient and daughter Citlaly agree with this plan. James Davis MD Visit type - Emergency Visit Emergency Visit: No - New Patient This patient is new to me today: No - Critical Care Critical Care patient: No ATTENDING PHYSICIAN STATEMENT I saw and evaluated the patient. I reviewed the resident's note and discussed the case with the resident. I agree with the resident's findings and plan as documented. SUBJECTIVE: OBJECTIVE: ASSESSMENT AND PLAN:
[2019-05-17] MEDS: ACETAMINOPHEN 325 MG TABLET (FP) PO PRN (14:39)
--- NOTE | 2019-05-17 18:43 | PN ---
Teaching Attending Note Name of Resident: James Davis ATTENDING PHYSICIAN STATEMENT I saw and evaluated the patient. I reviewed the resident's note and discussed the case with the resident. I agree with the resident's findings and plan as documented. SUBJECTIVE: conversation in Czech No fever or chills. No WALLIS . no pain in chest of abd . had 2 episodes of diarrhea. OBJECTIVE: NAD, awake, alert, cooperative and pleasant. MMM. CV: RRR, 3/6 SM all over the precordium, no radiation to carotids . No JVD Lungs: TAB Ext: trace edema on feet. varicose veins. ASSESSMENT AND PLAN: 84 y/o lady with h/o CAD, s/p CABG, and stents, PVD,h/o bradycardia, HTN, HLP, poorly controlled DM, CKD 3, GERD, recurrent UTIs, diastolic heart failure, and other medical problems who presented with elevated sugars 1- Hyperglycemia: questionable compliance. - for better compliance will switch o levemir 30 uits daily. gave 25 units in am fro today, will start 30 units in am - SSI 2- pseudohyponatremia: resolved 3- asymptomatic bacteruria. will not treat 4- HTN urgency: resolved. cont home meds 5- H/o diastolic CHF: cont lasix 6- H/o CAD, s/p CABG and stents. - cont plavix - cont statin 7- diarrhea: c diff neg DVT Px: heparin SQ she is agreeable for rehab . Cm informed . daughter was also informed
[2019-05-17] MEDS: ATORVASTATIN CA 80 MG TABLET (FP) PO SCH (22:21)
[2019-05-18] MEDS: INSULIN SLIDING SCALE (NOVOLOG) 1 VIAL SQ SCH ×3 (07:45→17:54)
[2019-05-18] MEDS: INSULIN (LEVEMIR) 100 UNITS/ML UNITS SQ SCH (07:46)
[2019-05-18] MEDS: HEPARIN NA (PORCINE) 5,000 UNITS/ML 1ML VIAL SQ SCH ×3 (07:47→22:31)
[2019-05-18] MEDS ORDERED: INSULIN (NOVOLOG) ASPART 100 UNITS/ML 10ML VIAL ONE (07:52)
[2019-05-18] MEDS: CLOPIDOGREL BISULFATE 75 MG TABLET (FP) PO SCH (10:52)
[2019-05-18] MEDS: amLODIPine BESYLATE 10 MG TABLET (FP) PO SCH (10:52)
[2019-05-18] MEDS: ASPIRIN 81 MG CHEWABLE TABLETS PO SCH (10:52)
[2019-05-18] MEDS: CARVEDILOL 3.125 MG TABLET (FP) PO SCH (10:52)
[2019-05-18] MEDS: FUROSEMIDE 40 MG TABLET (FP) PO SCH (10:52)
[2019-05-18] MEDS: ACETAMINOPHEN 325 MG TABLET (FP) PO PRN (10:52)
[2019-05-18] MEDS ORDERED: ONDANSETRON 4 MG/2 ML VIAL IVPB ONE (12:32)
--- NOTE | 2019-05-18 15:01 | PN ---
Progress Note (short form) - Note Progress Note: Subjective: No fever, no WALLIS , no abd pain. no dysuria . cont to have pain in legs. Objective: Vital Signs: Last Vital Signs Temp Pulse Resp BP Pulse Ox 97.5 F L 72 20 158/86 97 05/18/19 06:00 05/18/19 10:00 05/18/19 10:00 05/18/19 10:00 05/17/19 21:00 Laboratory Results - last 24 hr 05/17/19 05/17/19 05/18/19 17:07 22:16 06:59 POC Glucometer 220 171 248 05/18/19 12:31 POC Glucometer 255 Physical Exam: NAD, awake, alert, cooperative and pleasant. MMM. CV: RRR, 3/6 SM all over the precordium, no radiation to carotids. No JVD Lungs: CTAB Ext: Trace edema on feet. varicose veins. ASSESSMENT AND PLAN: 84 y/o lady with h/o CAD, s/p CABG, and stents, PVD,h/o bradycardia, HTN, HLP, poorly controlled DM, CKD 3, GERD, recurrent UTIs, diastolic heart failure, and other medical problems who presented with elevated sugars 1- Hyperglycemia: questionable compliance. - cont levemir daily - SSI 2- pseudohyponatremia: resolved 3- asymptomatic bacteruria. will not treat 4- HTN urgency: resolved. cont home meds 5- H/o diastolic CHF: cont lasix 6- H/o CAD, s/p CABG and stents. - cont plavix - cont statin 7- diarrhea: resolved DVT Px: heparin SQ Rehab placement pending . d/w CM Visit type - Emergency Visit Emergency Visit: Yes ED Registration Date: 05/15/19 Care time: The patient presented to the Emergency Department on the above date and was hospitalized for further evaluation of their emergent condition. - New Patient This patient is new to me today: No - Critical Care Critical Care patient: No
[2019-05-18] MEDS ORDERED: ONDANSETRON 4 MG TABLET PO ONE (19:30)
[2019-05-18] MEDS: ATORVASTATIN CA 80 MG TABLET (FP) PO SCH (22:31)
[2019-05-19] MEDS: INSULIN SLIDING SCALE (NOVOLOG) 1 VIAL SQ SCH ×3 (06:18→16:48)
[2019-05-19] MEDS: HEPARIN NA (PORCINE) 5,000 UNITS/ML 1ML VIAL SQ SCH ×3 (06:18→22:10)
[2019-05-19] MEDS: INSULIN (LEVEMIR) 100 UNITS/ML UNITS SQ SCH (06:19)
[2019-05-19 09:16] LABS: BLOOD UREA NITROGEN 44.5 mg/dL (7-18); CALCIUM 9.1 mg/dL (8.5-10.1); CREATININE 2.9 mg/dL (0.55-1.3); POTASSIUM 3.8 mmol/L (3.5-5.1)
[2019-05-19] MEDS: amLODIPine BESYLATE 10 MG TABLET (FP) PO SCH (10:38)
[2019-05-19] MEDS: FUROSEMIDE 40 MG TABLET (FP) PO SCH (10:38)
[2019-05-19] MEDS: ASPIRIN 81 MG CHEWABLE TABLETS PO SCH (10:39)
[2019-05-19] MEDS: CLOPIDOGREL BISULFATE 75 MG TABLET (FP) PO SCH (10:39)
[2019-05-19] MEDS: CARVEDILOL 3.125 MG TABLET (FP) PO SCH (10:39)
--- NOTE | 2019-05-19 15:57 | PN ---
Teaching Attending Note Name of Resident: James Davis ATTENDING PHYSICIAN STATEMENT I saw and evaluated the patient. I reviewed the resident's note and discussed the case with the resident. I agree with the resident's findings and plan as documented. SUBJECTIVE: No abd pain, no dysuria, no SOB, no WALLIS . pain in legs. OBJECTIVE: NAD, awake, alert, cooperative and pleasant. MMM. CV: RRR, 3/6 SM all over the precordium, no radiation to carotids. No JVD Lungs: CTAB Ext: Trace edema on feet. varicose veins. ASSESSMENT AND PLAN: 84 y/o lady with h/o CAD, s/p CABG, and stents, PVD,h/o bradycardia, HTN, HLP, poorly controlled DM, CKD 3, GERD, recurrent UTIs, diastolic heart failure, and other medical problems who presented with elevated sugars 1- Hyperglycemia: questionable compliance. - cont levemir daily for better compliance. - SSI 2- Pseudohyponatremia: resolved 3- asymptomatic bacteruria. will not treat 4- HTN urgency: resolved. cont home meds 5- H/o diastolic CHF: Cr noted. above base line . had diarrhea and was on lasix. will hold her lasix for few days ( received her dose for today) . 6- H/o CAD, s/p CABG and stents. - cont plavix - cont statin DVT Px: heparin SQ Rehab placement pending . d/w LEIGHTON this am
[2019-05-19] MEDS ORDERED: ONDANSETRON 4 MG/2 ML VIAL IVPUSH ONE (17:17)
--- NOTE | 2019-05-19 17:19 | PN ---
Physical Exam: SUBJECTIVE: Patient seen and examined at bedside. She was eating breakfast and offers no complaints. He leg pain is controlled with acetominophen. OBJECTIVE: Vital Signs Period Temp Pulse Resp BP Sys/Mckeon Pulse Ox Last 24 Hr 97.9 F-98.7 F 64-69 18-20 117-139/49-64 97-97 GENERAL: AOx3, in no acute distress, obese, Vietnamese speaking HEAD: NCAT EYES: STORMY, EOMI, conjunctiva clear. ENT: Ears normal, nares patent, oropharynx clear without exudates. Dry mucous membranes. NECK: Normal range of motion, supple without lymphadenopathy, JVD, or masses. LUNGS: CTAB. No wheezes. BL crackles at bases. No accessory muscle use. HEART: RRR s1 s2 ABDOMEN: Soft, obese, BS present in all 4 quadrants, non-distended, no JVD, MUSCULOSKELETAL: No bony deformities or tenderness. No CVA tenderness. UPPER EXTREMITIES: 2+ pulses, warm, well-perfused. No cyanosis. No clubbing. No peripheral edema. LOWER EXTREMITIES: 2+ pulses, warm, well-perfused. No calf tenderness. 1+ edema BL below knee NEUROLOGICAL: No focal deficits. Cranial nerves II-XII intact. Normal speech. Gait not appreciated. PSYCHIATRIC: Cooperative. Good eye contact. Appropriate mood and affect. SKIN: Warm, dry, normal turgor, no rashes or lesions noted, normal capillary refill. Laboratory Results - last 24 hr 05/18/19 05/19/19 05/19/19 17:53 05:49 06:00 Sodium 140 Potassium 3.8 Chloride 106 Carbon Dioxide 23 Anion Gap 11 BUN 44.5 H Creatinine 2.9 H Est GFR (CKD-EPI)AfAm 16.54 Est GFR (CKD-EPI)NonAf 14.27 POC Glucometer 248 252 Random Glucose 229 H Calcium 9.1 05/19/19 05/19/19 12:11 16:44 Sodium Potassium Chloride Carbon Dioxide Anion Gap BUN Creatinine Est GFR (CKD-EPI)AfAm Est GFR (CKD-EPI)NonAf POC Glucometer 295 139 Random Glucose Calcium Active Medications Generic Name Dose Route Start Last Admin Trade Name Freq PRN Reason Stop Dose Admin Acetaminophen 650 mg 05/17/19 12:19 05/18/19 10:52 Tylenol - PO 650 mg Q6H PRN Administration Fever Or Pain Amlodipine Besylate 10 mg 05/16/19 10:00 05/19/19 10:38 Norvasc - PO 10 mg DAILY JASMYN Administration Aspirin 81 mg 05/15/19 16:31 05/19/19 10:39 Asa - PO 81 mg DAILY JASMYN Administration Atorvastatin Calcium 80 mg 05/15/19 22:00 05/18/19 22:31 Lipitor - PO 80 mg HS JASMYN Administration Carvedilol 3.125 mg 05/16/19 10:00 05/19/19 10:39 Coreg - PO 3.125 mg DAILY JASMYN Administration Clopidogrel Bisulfate 75 mg 05/16/19 10:00 05/19/19 10:39 Plavix - PO 75 mg DAILY JASMYN Administration Heparin Sodium (Porcine) 5,000 unit 05/15/19 22:00 05/19/19 13:42 Heparin - SQ 5,000 unit TID JASMYN Administration Insulin Aspart 1 vial 05/16/19 11:00 05/19/19 16:48 Novolog Vial Sliding Scale - SQ Not Given TIDAC [facility] Protocol Insulin Detemir 30 units 05/18/19 07:00 05/19/19 06:19 Levemir Vial SQ 30 unit DAILY@0700 JASMYN Administration Ondansetron HCl 4 mg 05/19/19 17:17 Zofran Injection IVPUSH 05/19/19 17:18 ONCE ONE ASSESSMENT/PLAN: 84 y/o female PMH HTN, HLD, insulin treated DM, TIA, CAD s/p CABG/PCIs, diastolic CHFpEF, PVD, CKD, OA, and GERD presenting with elevated FS. She experienced some chest pain prior to arrival but resolved. She has no AG and b- OH-butyrate WNL. Pt appears to be non-compliant with medications and needs assistance. She can benefit from an 8 hour SCOURER. She walked with PT for 20 feet and will need SNF care, where she may also learn how to care for her diabetes. # Hyperglycemia, resolved - Gentle IVF (1L at 42 cc/hr), ISS, BGM TIDAC - Levemir home dose 30 mg PO BID though likely pt non-compliant/unable to administer appropriately - Initiated levemir 15 mg PO BID but to increase adherence, will continue Levemir 30 mg PO QD - Working with case management to get SCOURER for 8 hours a day so that someone can help manage insulin regimen TIDAC at home; plan for ISS at home. - AG 8, beta hydroxybutyrate 1.5 (NL) # Leg pain - Pt reports long standing leg pain - One time acetominophen relieved pain - Acetominophen available PRN # Diarrhea - No assoc. symptoms - C diff NEGATIVE # Troponemia, resolved - Flat trend: 0.05, 0.07, 0.09, 0.09, 0.08 - Likely 2/2 demand ischemia and renal disease - F/u out-pt - Consider cardiology evaluation - Consider stress test # Pseudohyponatremia, resolved - Corrected Na is 143.2 # Asymptomatic pyuria - No dysuria - No CVA tenderness # diastolic CHFpEF - HOLD Furosemide 80 mg P QD as pt appears vol depleted and Cr 2.9 today - Carvedilol 3.125 mg PO QD # CAD, s/p CABG and stents. - Continue clopidogrel 75 mg P QD - Continue atorvastatin 80 mg PO HS - Continue aspirin 81 mg PO QD # HTN/urgency - Cont. curent home regimen, amlodepine 10 mg PO QD - Urgency in ED: given home dose norvasc 10 - Consider PO hydralazine 10 if systolic above 150. Caution with beta blockers considering h/o bradycardia # HLD - Cont. curent home regimen # F/E/N - PO - Cont. to monitor - DM/low Na diet # DVT prophylaxis - Heparin SQ # Disposition - Anticipate DC to SNF. Patient and daughter Citlaly agree with this plan. James Davis MD Visit type - Emergency Visit Emergency Visit: No - New Patient This patient is new to me today: No - Critical Care Critical Care patient: No ATTENDING PHYSICIAN STATEMENT I saw and evaluated the patient. I reviewed the resident's note and discussed the case with the resident. I agree with the resident's findings and plan as documented. SUBJECTIVE: OBJECTIVE: ASSESSMENT AND PLAN:
[2019-05-19] MEDS: ATORVASTATIN CA 80 MG TABLET (FP) PO SCH (22:13)
[2019-05-20] MEDS: HEPARIN NA (PORCINE) 5,000 UNITS/ML 1ML VIAL SQ SCH ×3 (06:24→22:47)
[2019-05-20] MEDS: INSULIN SLIDING SCALE (NOVOLOG) 1 VIAL SQ SCH ×3 (06:26→16:23)
[2019-05-20] MEDS: INSULIN (LEVEMIR) 100 UNITS/ML UNITS SQ SCH (06:28)
[2019-05-20 07:57] LABS: HEMATOCRIT 40.1 % (32.4-45.2); HEMOGLOBIN 13.1 GM/dL (10.7-15.3); MCH 29.2 pg (25.7-33.7); MCHC 32.6 g/dl (32.0-36.0); MEAN CELL VOLUME 89.7 fl (80-96); MEAN PLT VOLUME 10.7 fl (7.5-11.1); PLATELET COUNT 293 K/MM3 (134-434); RBC 4.47 M/mm3 (3.60-5.2); WHITE BLOOD COUNT 11.2 K/mm3 (4.0-10.0)
[2019-05-20 08:19] LABS: ALBUMIN 3.2 g/dl (3.4-5.0); BILIRUBIN,TOTAL 0.4 mg/dL (0.2-1); BLOOD UREA NITROGEN 47.2 mg/dL (7-18); CALCIUM 9.1 mg/dL (8.5-10.1); MAGNESIUM 2.4 mg/dL (1.8-2.4); POTASSIUM 3.9 mmol/L (3.5-5.1); TOT PROT 6.4 g/dl (6.4-8.2)
[2019-05-20] MEDS: amLODIPine BESYLATE 10 MG TABLET (FP) PO SCH (09:58)
[2019-05-20] MEDS: ASPIRIN 81 MG CHEWABLE TABLETS PO SCH (09:58)
[2019-05-20] MEDS: CLOPIDOGREL BISULFATE 75 MG TABLET (FP) PO SCH (09:58)
[2019-05-20] MEDS: CARVEDILOL 3.125 MG TABLET (FP) PO SCH (09:58)
[2019-05-20] MEDS: SODIUM CHLORIDE 1,000 ML IV SCH (11:56)
--- NOTE | 2019-05-20 14:05 | PN ---
Physical Exam: SUBJECTIVE: Patient seen and examined at bedside. She offers no complaints today. Managing pt for one more night as Cr fred to 3 today. Will hydrate and reassess in AM. Pt likely to be dc to SNF May given tomorrow. OBJECTIVE: Vital Signs Period Temp Pulse Resp BP Sys/Mckeon Pulse Ox Last 24 Hr 98.3 F-99.1 F 64-104 18-20 127-157/55-74 95-97 GENERAL: AOx3, in no acute distress, obese, English speaking HEAD: NCAT EYES: STORMY, EOMI, conjunctiva clear. ENT: Ears normal, nares patent, oropharynx clear without exudates. Dry mucous membranes. NECK: Normal range of motion, supple without lymphadenopathy, JVD, or masses. LUNGS: CTAB. No wheezes. BL crackles at bases. No accessory muscle use. HEART: RRR s1 s2 ABDOMEN: Soft, obese, BS present in all 4 quadrants, non-distended, no JVD, MUSCULOSKELETAL: No bony deformities or tenderness. No CVA tenderness. UPPER EXTREMITIES: 2+ pulses, warm, well-perfused. No cyanosis. No clubbing. No peripheral edema. LOWER EXTREMITIES: 2+ pulses, warm, well-perfused. No calf tenderness. 1+ edema BL below knee NEUROLOGICAL: No focal deficits. Cranial nerves II-XII intact. Normal speech. Gait not appreciated. PSYCHIATRIC: Cooperative. Good eye contact. Appropriate mood and affect. SKIN: Warm, dry, normal turgor, no rashes or lesions noted, normal capillary refill. Laboratory Results - last 24 hr 05/19/19 05/19/19 05/20/19 16:44 22:08 05:48 WBC RBC Hgb Hct MCV MCH MCHC RDW Plt Count MPV Sodium Potassium Chloride Carbon Dioxide Anion Gap BUN Creatinine Est GFR (CKD-EPI)AfAm Est GFR (CKD-EPI)NonAf POC Glucometer 139 141 201 Random Glucose Calcium Phosphorus Magnesium Total Bilirubin AST ALT Alkaline Phosphatase Total Protein Albumin 05/20/19 05/20/19 05/20/19 06:35 06:35 10:02 WBC 11.2 H RBC 4.47 Hgb 13.1 Hct 40.1 MCV 89.7 MCH 29.2 MCHC 32.6 RDW 15.0 Plt Count 293 MPV 10.7 Sodium 140 Potassium 3.9 Chloride 104 Carbon Dioxide 25 Anion Gap 11 BUN 47.2 H Creatinine 3.0 H Est GFR (CKD-EPI)AfAm 15.87 Est GFR (CKD-EPI)NonAf 13.70 POC Glucometer 317 Random Glucose 225 H Calcium 9.1 Phosphorus 5.0 H Magnesium 2.4 Total Bilirubin 0.4 AST 27 ALT 33 Alkaline Phosphatase 100 Total Protein 6.4 Albumin 3.2 L Active Medications Generic Name Dose Route Start Last Admin Trade Name Freq PRN Reason Stop Dose Admin Acetaminophen 650 mg 05/17/19 12:19 05/18/19 10:52 Tylenol - PO 650 mg Q6H PRN Administration Fever Or Pain Amlodipine Besylate 10 mg 05/16/19 10:00 05/20/19 09:58 Norvasc - PO Not Given DAILY [facility] Aspirin 81 mg 05/15/19 16:31 05/20/19 09:58 Asa - PO Not Given DAILY [facility] Atorvastatin Calcium 80 mg 05/15/19 22:00 05/19/19 22:13 Lipitor - PO Not Given HS [facility] Carvedilol 3.125 mg 05/16/19 10:00 05/20/19 09:58 Coreg - PO Not Given DAILY [facility] Clopidogrel Bisulfate 75 mg 05/16/19 10:00 05/20/19 09:58 Plavix - PO Not Given DAILY [facility] Heparin Sodium (Porcine) 5,000 unit 05/15/19 22:00 05/20/19 13:14 Heparin - SQ 5,000 unit TID [facility] Administration Sodium Chloride 1,000 mls @ 100 mls/hr 05/20/19 10:30 05/20/19 11:56 Normal Saline - IV 100 mls/hr ASDIR JASMYN Administration Insulin Aspart 1 vial 05/16/19 11:00 05/20/19 10:03 Novolog Vial Sliding Scale - SQ 6 units TIDAC [facility] Administration Protocol Insulin Detemir 30 units 05/18/19 07:00 05/20/19 06:28 Levemir Vial SQ 30 unit DAILY@0700 [facility] Administration ASSESSMENT/PLAN: 84 y/o female PMH HTN, HLD, insulin treated DM, TIA, CAD s/p CABG/PCIs, diastolic CHFpEF, PVD, CKD, OA, and GERD presenting with elevated FS. She experienced some chest pain prior to arrival but resolved. She has no AG and b- OH-butyrate WNL. Pt appears to be non-compliant with medications and needs assistance. She can benefit from an 8 hour [employer]SEMBL[employer]. She walked with PT for 20 feet and will need SNF care, where she may also learn how to care for her diabetes. # Hyperglycemia, resolved - Gentle IVF (1L at 42 cc/hr), ISS, BGM TIDAC - Levemir 30 mg QD with ISS and sugars managed well; home dose was 30 mg BID though likely pt non-compliant/unable to administer appropriately - Working with case management to get [employer]ATS ASSEMBLER for 8 hours a day so that someone can help manage insulin regimen TIDAC at home; plan for ISS at home. - On presentation AG 8, beta hydroxybutyrate 1.5 (NL) # Leg pain, resolved - Pt reports long standing leg pain - One time acetominophen relieved pain - Acetominophen available PRN # Diarrhea, resolved - No assoc. symptoms - C diff NEGATIVE # Troponemia, resolved - Flat trend: 0.05, 0.07, 0.09, 0.09, 0.08 - Likely 2/2 demand ischemia and renal disease - F/u out-pt - Consider cardiology evaluation - Consider stress test # Pseudohyponatremia, resolved - Corrected Na is 143.2 # Asymptomatic pyuria - No dysuria - No CVA tenderness # diastolic CHFpEF - HOLD Furosemide 80 mg P QD as pt appears vol depleted and Cr 3 today - Carvedilol 3.125 mg PO QD # CAD, s/p CABG and stents. - Continue clopidogrel 75 mg P QD - Continue atorvastatin 80 mg PO HS - Continue aspirin 81 mg PO QD # HTN/urgency - Cont. curent home regimen, amlodepine 10 mg PO QD - Urgency in ED: given home dose norvasc 10 - Consider PO hydralazine 10 if systolic above 150. Caution with beta blockers considering h/o bradycardia # HLD - Cont. curent home regimen: atorvastatin 80 mg PO HS # F/E/N - PO + NS - Cont. to monitor - DM/low Na diet # DVT prophylaxis - Heparin SQ # Disposition - Anticipate DC to SNF. Patient and daughter Citlaly agree with this plan. James Davis MD Visit type - Emergency Visit Emergency Visit: No - New Patient This patient is new to me today: No - Critical Care Critical Care patient: No ATTENDING PHYSICIAN STATEMENT I saw and evaluated the patient. I reviewed the resident's note and discussed the case with the resident. I agree with the resident's findings and plan as documented. SUBJECTIVE: OBJECTIVE: ASSESSMENT AND PLAN:
--- NOTE | 2019-05-20 14:43 | PN ---
Physical Exam: SUBJECTIVE: Patient seen and examined OBJECTIVE: Vital Signs Period Temp Pulse Resp BP Sys/Mckeon Pulse Ox Last 24 Hr 98.3 F-99.1 F 64-104 18-20 127-157/55-74 95-97 GENERAL: The patient is awake, alert, and fully oriented, in no acute distress. HEAD: Normal with no signs of trauma. EYES: PERRL, extraocular movements intact, sclera anicteric, conjunctiva clear. No ptosis. ENT: Ears normal, nares patent, oropharynx clear without exudates, moist mucous membranes. NECK: Trachea midline, full range of motion, supple. LUNGS: Breath sounds equal, clear to auscultation bilaterally, no wheezes, no crackles, no accessory muscle use. HEART: Regular rate and rhythm, S1, S2 without murmur, rub or gallop. ABDOMEN: Soft, nontender, nondistended, normoactive bowel sounds, no guarding, no rebound, no hepatosplenomegaly, no masses. EXTREMITIES: 2+ pulses, warm, well-perfused, no edema. NEUROLOGICAL: Cranial nerves II through XII grossly intact. Normal speech, gait not observed. PSYCH: Normal mood, normal affect. SKIN: Warm, dry, normal turgor, no rashes or lesions noted Laboratory Results - last 24 hr 05/19/19 05/19/19 05/20/19 16:44 22:08 05:48 WBC RBC Hgb Hct MCV MCH MCHC RDW Plt Count MPV Sodium Potassium Chloride Carbon Dioxide Anion Gap BUN Creatinine Est GFR (CKD-EPI)AfAm Est GFR (CKD-EPI)NonAf POC Glucometer 139 141 201 Random Glucose Calcium Phosphorus Magnesium Total Bilirubin AST ALT Alkaline Phosphatase Total Protein Albumin 05/20/19 05/20/19 05/20/19 06:35 06:35 10:02 WBC 11.2 H RBC 4.47 Hgb 13.1 Hct 40.1 MCV 89.7 MCH 29.2 MCHC 32.6 RDW 15.0 Plt Count 293 MPV 10.7 Sodium 140 Potassium 3.9 Chloride 104 Carbon Dioxide 25 Anion Gap 11 BUN 47.2 H Creatinine 3.0 H Est GFR (CKD-EPI)AfAm 15.87 Est GFR (CKD-EPI)NonAf 13.70 POC Glucometer 317 Random Glucose 225 H Calcium 9.1 Phosphorus 5.0 H Magnesium 2.4 Total Bilirubin 0.4 AST 27 ALT 33 Alkaline Phosphatase 100 Total Protein 6.4 Albumin 3.2 L Active Medications Generic Name Dose Route Start Last Admin Trade Name Freq PRN Reason Stop Dose Admin Acetaminophen 650 mg 05/17/19 12:19 05/18/19 10:52 Tylenol - PO 650 mg Q6H PRN Administration Fever Or Pain Amlodipine Besylate 10 mg 05/16/19 10:00 05/20/19 09:58 Norvasc - PO Not Given DAILY [facility] Aspirin 81 mg 05/15/19 16:31 05/20/19 09:58 Asa - PO Not Given DAILY JASMYN Atorvastatin Calcium 80 mg 05/15/19 22:00 05/19/19 22:13 Lipitor - PO Not Given HS [facility] Carvedilol 3.125 mg 05/16/19 10:00 05/20/19 09:58 Coreg - PO Not Given DAILY JASMYN Clopidogrel Bisulfate 75 mg 05/16/19 10:00 05/20/19 09:58 Plavix - PO Not Given DAILY [facility] Heparin Sodium (Porcine) 5,000 unit 05/15/19 22:00 05/20/19 13:14 Heparin - SQ 5,000 unit TID JASMYN Administration Sodium Chloride 1,000 mls @ 100 mls/hr 05/20/19 10:30 05/20/19 11:56 Normal Saline - IV 100 mls/hr ASDIR JASMYN Administration Insulin Aspart 1 vial 05/16/19 11:00 05/20/19 10:03 Novolog Vial Sliding Scale - SQ 6 units TIDAC [facility] Administration Protocol Insulin Detemir 30 units 05/18/19 07:00 05/20/19 06:28 Levemir Vial SQ 30 unit DAILY@0700 J[facility]MYN Administration ASSESSMENT/PLAN: ATTENDING PHYSICIAN STATEMENT I saw and evaluated the patient. I reviewed the resident's note and discussed the case with the resident. I agree with the resident's findings and plan as documented. SUBJECTIVE: OBJECTIVE: ASSESSMENT AND PLAN:
--- NOTE | 2019-05-20 17:23 | PN ---
Teaching Attending Note Name of Resident: James Davis ATTENDING PHYSICIAN STATEMENT I saw and evaluated the patient. I reviewed the resident's note and discussed the case with the resident. I agree with the resident's findings and plan as documented. SUBJECTIVE: No fever or chills. no pain in abd . No dysuria. has diarrhea. OBJECTIVE: NAD, awake, alert, cooperative and pleasant. MMM. CV: RRR, 3/6 SM all over the precordium, no radiation to carotids. No JVD Lungs: CTAB Ext: trace edema on feet. varicose veins. ASSESSMENT AND PLAN: 84 y/o lady with h/o CAD, s/p CABG, and stents, PVD,h/o bradycardia, HTN, HLP, poorly controlled DM, CKD 3, GERD, recurrent UTIs, diastolic heart failure, and other medical problems who presented with elevated sugars 1- Hyperglycemia: questionable compliance. - cont levemir daily for better compliance. ( switched from BId dosing for compliance ) - SSI 2- ULISES on CKD: base line cr 1.5-2. now 3 due to diarrhea . lasix was held , but also will start IVF todayx 12 h and evaluate in am. 3- Asymptomatic bacteruria. will not treat 4- HTN urgency: resolved. cont home meds 5- H/o diastolic CHF: hold lasix and give IVF for now 6- H/o CAD, s/p CABG and stents. - cont plavix - cont statin DVT Px: heparin SQ Cancel dc today due to ULISES. possible tomorrow. ASSESSMENT AND PLAN:
[2019-05-20] MEDS: ATORVASTATIN CA 80 MG TABLET (FP) PO SCH (22:53)
[2019-05-21] MEDS: HEPARIN NA (PORCINE) 5,000 UNITS/ML 1ML VIAL SQ SCH ×3 (07:10→21:09)
[2019-05-21] MEDS: INSULIN (LEVEMIR) 100 UNITS/ML UNITS SQ SCH (07:15)
[2019-05-21] MEDS: INSULIN SLIDING SCALE (NOVOLOG) 1 VIAL SQ SCH ×3 (07:16→17:41)
--- NOTE | 2019-05-21 08:58 | PN ---
Teaching Attending Note Name of Resident: James Davis ATTENDING PHYSICIAN STATEMENT I saw and evaluated the patient. I reviewed the resident's note and discussed the case with the resident. I agree with the resident's findings and plan as documented. SUBJECTIVE: Patient is feeling better, with no acute distress. Vital Signs Temperature 98.8 F 05/21/19 06:00 Pulse Rate 65 05/21/19 06:00 Respiratory Rate 20 05/21/19 06:00 Blood Pressure 131/61 05/21/19 06:00 O2 Sat by Pulse Oximetry (%) 95 05/20/19 21:00 GENERAL: The patient is awake, alert, and fully oriented, in no acute distress. HEAD: Normal with no signs of trauma. EYES: PERRL, extraocular movements intact, sclera anicteric, conjunctiva clear. ENT: Ears normal, oropharynx clear without exudates, moist mucous membranes. NECK: Trachea midline, full range of motion, supple. LUNGS: Breath sounds equal, clear to auscultation bilaterally, no wheezes, no crackles, no accessory muscle use. HEART: Regular rate and rhythm, S1, S2 without murmur, rub or gallop. ABDOMEN: Soft, NT,ND, normoactive bowel sounds, no guarding, no rebound, no hepatosplenomegaly, no masses. EXTREMITIES: 2+ pulses, warm, well-perfused, no edema. NEUROLOGICAL: Cranial nerves II through XII grossly intact. Normal speech, gait not observed. PSYCH: Normal mood, normal affect. SKIN: Warm, dry, normal turgor, no rashes or lesions noted CBCD WBC 11.2 K/mm3 (4.0-10.0) H 05/20/19 06:35 RBC 4.47 M/mm3 (3.60-5.2) 05/20/19 06:35 Hgb 13.1 GM/dL (10.7-15.3) 05/20/19 06:35 Hct 40.1 % (32.4-45.2) 05/20/19 06:35 MCV 89.7 fl (80-96) 05/20/19 06:35 MCHC 32.6 g/dl (32.0-36.0) 05/20/19 06:35 RDW 15.0 % (11.6-15.6) 05/20/19 06:35 Plt Count 293 K/MM3 (134-434) 05/20/19 06:35 MPV 10.7 fl (7.5-11.1) 05/20/19 06:35 CMP Sodium 140 mmol/L (136-145) 05/20/19 06:35 Potassium 3.9 mmol/L (3.5-5.1) 05/20/19 06:35 Chloride 104 mmol/L (98-107) 05/20/19 06:35 Carbon Dioxide 25 mmol/L (21-32) 05/20/19 06:35 Anion Gap 11 MMOL/L (8-16) 05/20/19 06:35 BUN 47.2 mg/dL (7-18) H 05/20/19 06:35 Creatinine 3.0 mg/dL (0.55-1.3) H 05/20/19 06:35 Random Glucose 225 mg/dL (74-106) H 05/20/19 06:35 Calcium 9.1 mg/dL (8.5-10.1) 05/20/19 06:35 Total Bilirubin 0.4 mg/dL (0.2-1) 05/20/19 06:35 AST 27 U/L (15-37) 05/20/19 06:35 ALT 33 U/L (13-61) 05/20/19 06:35 Alkaline Phosphatase 100 U/L (45-117) 05/20/19 06:35 Total Protein 6.4 g/dl (6.4-8.2) 05/20/19 06:35 Albumin 3.2 g/dl (3.4-5.0) L 05/20/19 06:35 CARDIAC ENZYMES Creatine Kinase 36 U/L (26-192) 05/15/19 20:00 Troponin I 0.08 ng/ml (0.00-0.05) H 05/16/19 17:00 Current Medications Generic Name Dose Route Start Last Admin Trade Name Freq PRN Reason Stop Dose Admin Acetaminophen 650 mg 05/17/19 12:19 05/18/19 10:52 Tylenol - PO 650 mg Q6H PRN Administration Fever Or Pain Amlodipine Besylate 10 mg 05/16/19 10:00 05/20/19 09:58 Norvasc - PO Not Given DAILY [facility] Aspirin 81 mg 05/15/19 16:31 05/20/19 09:58 Asa - PO Not Given DAILY [facility] Atorvastatin Calcium 80 mg 05/15/19 22:00 05/20/19 22:53 Lipitor - PO Not Given HS [facility] Carvedilol 3.125 mg 05/16/19 10:00 05/20/19 09:58 Coreg - PO Not Given DAILY [facility] Clopidogrel Bisulfate 75 mg 05/16/19 10:00 05/20/19 09:58 Plavix - PO Not Given DAILY [facility] Heparin Sodium (Porcine) 5,000 unit 05/15/19 22:00 05/21/19 07:10 Heparin - SQ 5,000 unit TID [facility] Administration Sodium Chloride 1,000 mls @ 100 mls/hr 05/20/19 10:30 05/20/19 11:56 Normal Saline - IV 100 mls/hr ASDIR [facility] Administration Insulin Aspart 1 vial 05/16/19 11:00 05/21/19 07:16 Novolog Vial Sliding Scale - SQ 2 units TIDAC [facility] Administration Protocol Insulin Detemir 30 units 05/18/19 07:00 05/21/19 07:15 Levemir Vial SQ 30 unit DAILY@0700 [facility] Administration Home Medications Medication Instructions Recorded Clopidogrel Bisulfate [Plavix] 75 mg PO DAILY 02/08/18 Insulin (Levemir) [Levemir Vial] 30 units SQ BID 10/23/18 Atorvastatin Ca [Lipitor] 80 mg PO HS 05/15/19 Carvedilol 3.125 mg PO DAILY 05/15/19 Furosemide [Lasix] 80 mg PO DAILY 05/15/19 Amlodipine Besylate 10 mg PO DAILY 05/16/19 Dulaglutide [Trulicity] 0.75 units SQ WEEKLY 05/16/19 Ergocalciferol (Vitamin D2) 1 cap PO WEEKLY 05/16/19 [Vitamin D2] Gabapentin 200 mg PO TID 05/16/19 Tizanidine HCl 2 mg PO DAILY 05/16/19 Microbiology 05/17/19 09:52 Stool Clostridioides difficile Antigen - Final 05/17/19 09:52 Stool Clostridioides difficile Toxin Assay - Final 05/15/19 14:46 Urine - Urine Clean Catch Urine Culture - Final Citrobacter Freundii Laboratory Tests 05/17/19 05/19/19 05/20/19 07:05 06:00 06:35 Creatinine 1.7 H 2.9 H 3.0 H 05/21/19 07:52 Creatinine 2.7 H Assessment and plan: Patient is an 84yom with PMhx CAD, s/p CABG, and stents, PVD,h/o bradycardia, HTN, HLP, poorly controlled DM, CKD 3, GERD, recurrent UTIs, diastolic heart failure, who presented with elevated sugars # ULISES on CKD: base line cr 1.5-2.-->2.7-->3.0 today , will repeat in am , continue on ivf and monitor and evaluate in am. # Hyperglycemia: questionable compliance. cont levemir daily for better compliance. ( switched from BId dosing to once a day dosing ), SSI # Asymptomatic bacteruria. will not treat # HTN urgency: resolved. cont home meds # H/o diastolic CHF: hold lasix and give IVF for now # H/o CAD, s/p CABG and stents. continue plavix and statin DVT Px: heparin SQ possible dc in am if improves the ULISES
[2019-05-21 09:27] LABS: ALBUMIN 2.9 g/dl (3.4-5.0); BILIRUBIN,TOTAL 0.4 mg/dL (0.2-1); BLOOD UREA NITROGEN 47.7 mg/dL (7-18); CALCIUM 8.6 mg/dL (8.5-10.1); CREATININE 2.7 mg/dL (0.55-1.3); MAGNESIUM 2.3 mg/dL (1.8-2.4); PHOSPHOROUS 3.8 mg/dL (2.5-4.9); POTASSIUM 3.9 mmol/L (3.5-5.1); TOT PROT 5.9 g/dl (6.4-8.2)
[2019-05-21] MEDS: CARVEDILOL 3.125 MG TABLET (FP) PO SCH (10:03)
[2019-05-21] MEDS: ASPIRIN 81 MG CHEWABLE TABLETS PO SCH (10:03)
[2019-05-21] MEDS: CLOPIDOGREL BISULFATE 75 MG TABLET (FP) PO SCH (10:03)
[2019-05-21] MEDS: amLODIPine BESYLATE 10 MG TABLET (FP) PO SCH (10:03)
[2019-05-21] MEDS: ACETAMINOPHEN 325 MG TABLET (FP) PO PRN (12:08)
[2019-05-21] MEDS: SODIUM CHLORIDE 1,000 ML IV SCH (14:55)
[2019-05-21] MEDS ORDERED: SODIUM CHLORIDE 250 ML IV STA (18:41)
--- NOTE | 2019-05-21 18:46 | PN ---
Physical Exam: SUBJECTIVE: Patient seen and examined at bedside. She offers no complaints today. Cr lowered with hydration to 2.7 today. Plan to dc to SNF tomorrow. OBJECTIVE: Vital Signs Period Temp Pulse Resp BP Sys/Mckeon Pulse Ox Last 24 Hr 98.0 F-98.8 F 63-71 20-20 131-141/57-97 95-95 GENERAL: AOx3, in no acute distress, obese, [place] speaking HEAD: NCAT EYES: STORMY, EOMI, conjunctiva clear. ENT: Ears normal, nares patent, oropharynx clear without exudates. Dry mucous membranes. NECK: Normal range of motion, supple without lymphadenopathy, JVD, or masses. LUNGS: CTAB. No wheezes. BL crackles at bases. No accessory muscle use. HEART: RRR s1 s2 ABDOMEN: Soft, obese, BS present in all 4 quadrants, non-distended, no JVD, MUSCULOSKELETAL: No bony deformities or tenderness. No CVA tenderness. UPPER EXTREMITIES: 2+ pulses, warm, well-perfused. No cyanosis. No clubbing. No peripheral edema. LOWER EXTREMITIES: 2+ pulses, warm, well-perfused. No calf tenderness. 1+ edema BL below knee NEUROLOGICAL: No focal deficits. Cranial nerves II-XII intact. Normal speech. Gait not appreciated. PSYCHIATRIC: Cooperative. Good eye contact. Appropriate mood and affect. SKIN: Warm, dry, normal turgor, no rashes or lesions noted, normal capillary refill. Laboratory Results - last 24 hr 05/20/19 05/21/19 05/21/19 22:43 07:08 07:52 Sodium 142 Potassium 3.9 Chloride 109 H Carbon Dioxide 25 Anion Gap 8 BUN 47.7 H Creatinine 2.7 H Est GFR (CKD-EPI)AfAm 18.03 Est GFR (CKD-EPI)NonAf 15.56 POC Glucometer 217 235 Random Glucose 264 H Calcium 8.6 Phosphorus 3.8 Magnesium 2.3 Total Bilirubin 0.4 AST 20 ALT 30 Alkaline Phosphatase 97 Total Protein 5.9 L Albumin 2.9 L 05/21/19 05/21/19 12:04 17:40 Sodium Potassium Chloride Carbon Dioxide Anion Gap BUN Creatinine Est GFR (CKD-EPI)AfAm Est GFR (CKD-EPI)NonAf POC Glucometer 243 166 Random Glucose Calcium Phosphorus Magnesium Total Bilirubin AST ALT Alkaline Phosphatase Total Protein Albumin Active Medications Generic Name Dose Route Start Last Admin Trade Name Freq PRN Reason Stop Dose Admin Acetaminophen 650 mg 05/17/19 12:19 05/21/19 12:08 Tylenol - PO 650 mg Q6H PRN Administration Fever Or Pain Amlodipine Besylate 10 mg 05/16/19 10:00 05/21/19 10:03 Norvasc - PO Not Given DAILY [facility] Aspirin 81 mg 05/15/19 16:31 05/21/19 10:03 Asa - PO Not Given DAILY [facility] Atorvastatin Calcium 80 mg 05/15/19 22:00 05/20/19 22:53 Lipitor - PO Not Given HS [facility] Carvedilol 3.125 mg 05/16/19 10:00 05/21/19 10:03 Coreg - PO Not Given DAILY [facility] Clopidogrel Bisulfate 75 mg 05/16/19 10:00 05/21/19 10:03 Plavix - PO Not Given DAILY [facility] Heparin Sodium (Porcine) 5,000 unit 05/15/19 22:00 05/21/19 14:55 Heparin - SQ 5,000 unit TID [facility] Administration Sodium Chloride 1,000 mls @ 100 mls/hr 05/20/19 10:30 05/21/19 14:55 Normal Saline - IV 100 mls/hr ASDIR [facility] Administration Insulin Aspart 1 vial 05/16/19 11:00 05/21/19 17:41 [facility]olog [facility] Sliding [facility] - [facility]Q [facility] Protocol Insulin Detemir 30 units 05/18/19 07:00 05/21/19 07:15 Levemir Vial SQ 30 unit DAILY@0700 [facility] Administration ASSESSMENT/PLAN: 84 y/o female PMH HTN, HLD, insulin treated DM, TIA, CAD s/p CABG/PCIs, diastolic CHFpEF, PVD, CKD, OA, and GERD presenting with elevated FS. She experienced some chest pain prior to arrival but resolved. She has no AG and b- OH-butyrate WNL. Pt appears to be non-compliant with medications and needs assistance. She can benefit from an 8 hour [employer]. She walked with PT for 20 feet and will need SNF care, where she may also learn how to care for her diabetes. # ULISES - Baseline Cr in past visits 1.7, fred to 3 - Repeat NS 250 cc bolus and reassess in AM # Hyperglycemia, resolved - ISS, BGM TIDAC - Levemir 30 mg QD with ISS and sugars managed well; home dose was 30 mg BID though likely pt non-compliant/unable to administer appropriately - Working with case management to get [employer] for 8 hours a day so that someone can help manage insulin regimen TIDAC at home; plan for ISS at home. - On presentation AG 8, beta hydroxybutyrate 1.5 (NL) # Leg pain, resolved - Pt reports long standing leg pain - One time acetominophen relieved pain - Acetominophen available PRN # Diarrhea, resolved - No assoc. symptoms - C diff NEGATIVE # Troponemia, resolved - Flat trend: 0.05, 0.07, 0.09, 0.09, 0.08 - Likely 2/2 demand ischemia and renal disease - F/u out-pt - Consider cardiology evaluation - Consider stress test # Pseudohyponatremia, resolved - Corrected Na is 143.2 # Asymptomatic pyuria - No dysuria - No CVA tenderness # diastolic CHFpEF - HOLD Furosemide 80 mg P QD as pt appears vol depleted and Cr 3 today - Carvedilol 3.125 mg PO QD # CAD, s/p CABG and stents. - Continue clopidogrel 75 mg P QD - Continue atorvastatin 80 mg PO HS - Continue aspirin 81 mg PO QD # HTN/urgency - Cont. curent home regimen, amlodepine 10 mg PO QD - Urgency in ED: given home dose norvasc 10 - Consider PO hydralazine 10 if systolic above 150. Caution with beta blockers considering h/o bradycardia # HLD - Cont. curent home regimen: atorvastatin 80 mg PO HS # F/E/N - PO + NS - Cont. to monitor - DM/low Na diet # DVT prophylaxis - Heparin SQ # Disposition - Anticipate DC to SNF. Patient and daughter Citlaly agree with this plan. James Davis MD Visit type - Emergency Visit Emergency Visit: No - New Patient This patient is new to me today: No - Critical Care Critical Care patient: No ATTENDING PHYSICIAN STATEMENT I saw and evaluated the patient. I reviewed the resident's note and discussed the case with the resident. I agree with the resident's findings and plan as documented. SUBJECTIVE: OBJECTIVE: ASSESSMENT AND PLAN:
[2019-05-21] MEDS: ATORVASTATIN CA 80 MG TABLET (FP) PO SCH (21:09)
[2019-05-22] MEDS: HEPARIN NA (PORCINE) 5,000 UNITS/ML 1ML VIAL SQ SCH (06:29)
[2019-05-22] MEDS: INSULIN (LEVEMIR) 100 UNITS/ML UNITS SQ SCH (06:30)
[2019-05-22] MEDS: INSULIN SLIDING SCALE (NOVOLOG) 1 VIAL SQ SCH ×2 (06:31→11:54)
[2019-05-22 08:20] LABS: ALBUMIN 2.8 g/dl (3.4-5.0); BILIRUBIN,TOTAL 0.3 mg/dL (0.2-1); BLOOD UREA NITROGEN 32.1 mg/dL (7-18); CALCIUM 8.5 mg/dL (8.5-10.1); CREATININE 1.9 mg/dL (0.55-1.3); MAGNESIUM 2.1 mg/dL (1.8-2.4); PHOSPHOROUS 3.3 mg/dL (2.5-4.9); POTASSIUM 3.8 mmol/L (3.5-5.1); TOT PROT 5.8 g/dl (6.4-8.2)
[2019-05-22] MEDS ORDERED: PT OWN MED DRAWER 7, Y5N ONE (09:40)
[2019-05-22] MEDS: ACETAMINOPHEN 325 MG TABLET (FP) PO PRN (09:57)
[2019-05-22] MEDS: ASPIRIN 81 MG CHEWABLE TABLETS PO SCH (09:58)
[2019-05-22] MEDS: CLOPIDOGREL BISULFATE 75 MG TABLET (FP) PO SCH (09:58)
[2019-05-22] MEDS: CARVEDILOL 3.125 MG TABLET (FP) PO SCH (09:58)
[2019-05-22] MEDS: amLODIPine BESYLATE 10 MG TABLET (FP) PO SCH (09:58)
[2019-05-22 11:52] VITALS: BP 136/71; PULSE 69; TEMP 97.1
--- NOTE | 2019-05-22 15:32 | PN ---
Teaching Attending Note Name of Resident: James Davis ATTENDING PHYSICIAN STATEMENT I saw and evaluated the patient. I reviewed the resident's note and discussed the case with the resident. I agree with the resident's findings and plan as documented. SUBJECTIVE: Patient is comfortable with no acute distress. OBJECTIVE: Vital Signs Temperature 97.1 F L 05/22/19 10:00 Pulse Rate 69 05/22/19 10:00 Respiratory Rate 20 05/22/19 10:00 Blood Pressure 136/71 05/22/19 10:00 O2 Sat by Pulse Oximetry (%) 98 05/22/19 09:00 GENERAL: The patient is awake, alert, and fully oriented, in no acute distress. HEAD: Normal with no signs of trauma. EYES: PERRL, extraocular movements intact, sclera anicteric, conjunctiva clear. ENT: Ears normal, oropharynx clear without exudates, moist mucous membranes. NECK: Trachea midline, full range of motion, supple. LUNGS: Breath sounds equal, clear to auscultation bilaterally, no wheezes, no crackles, no accessory muscle use. HEART: Regular rate and rhythm, S1, S2 without murmur, rub or gallop. ABDOMEN: Soft, NT,ND, normoactive bowel sounds, no guarding, no rebound, no hepatosplenomegaly, no masses. EXTREMITIES: 2+ pulses, warm, well-perfused, no edema. NEUROLOGICAL: Cranial nerves II through XII grossly intact. Normal speech, gait not observed. PSYCH: Normal mood, normal affect. SKIN: Warm, dry, normal turgor, no rashes or lesions noted CBCD WBC 11.2 K/mm3 (4.0-10.0) H 05/20/19 06:35 RBC 4.47 M/mm3 (3.60-5.2) 05/20/19 06:35 Hgb 13.1 GM/dL (10.7-15.3) 05/20/19 06:35 Hct 40.1 % (32.4-45.2) 05/20/19 06:35 MCV 89.7 fl (80-96) 05/20/19 06:35 MCHC 32.6 g/dl (32.0-36.0) 05/20/19 06:35 RDW 15.0 % (11.6-15.6) 05/20/19 06:35 Plt Count 293 K/MM3 (134-434) 05/20/19 06:35 MPV 10.7 fl (7.5-11.1) 05/20/19 06:35 CMP Sodium 145 mmol/L (136-145) 05/22/19 06:40 Potassium 3.8 mmol/L (3.5-5.1) 05/22/19 06:40 Chloride 112 mmol/L (98-107) H 05/22/19 06:40 Carbon Dioxide 25 mmol/L (21-32) 05/22/19 06:40 Anion Gap 7 MMOL/L (8-16) L 05/22/19 06:40 BUN 32.1 mg/dL (7-18) H 05/22/19 06:40 Creatinine 1.9 mg/dL (0.55-1.3) H 05/22/19 06:40 Random Glucose 193 mg/dL (74-106) H 05/22/19 06:40 Calcium 8.5 mg/dL (8.5-10.1) 05/22/19 06:40 Total Bilirubin 0.3 mg/dL (0.2-1) 05/22/19 06:40 AST 25 U/L (15-37) 05/22/19 06:40 ALT 30 U/L (13-61) 05/22/19 06:40 Alkaline Phosphatase 90 U/L (45-117) 05/22/19 06:40 Total Protein 5.8 g/dl (6.4-8.2) L 05/22/19 06:40 Albumin 2.8 g/dl (3.4-5.0) L 05/22/19 06:40 CARDIAC ENZYMES Creatine Kinase 36 U/L (26-192) 05/15/19 20:00 Troponin I 0.08 ng/ml (0.00-0.05) H 05/16/19 17:00 Home Medications Medication Instructions Recorded RX: Clopidogrel Bisulfate [Plavix] 75 mg PO DAILY 02/08/18 RX: Atorvastatin Ca [Lipitor] 80 mg PO HS 05/15/19 RX: Carvedilol 3.125 mg PO DAILY 05/15/19 RX: Amlodipine Besylate 10 mg PO DAILY 05/16/19 RX: Ergocalciferol (Vitamin D2) 1 cap PO WEEKLY 05/16/19 [Vitamin D2] RX: Gabapentin 200 mg PO TID 05/16/19 RX: Tizanidine HCl 2 mg PO DAILY 05/16/19 RX: Amlodipine Besylate [Norvasc -] 10 mg PO DAILY tablet 05/22/19 RX: Aspirin [ASA -] 81 mg PO DAILY tab.chew 05/22/19 RX: Insulin (Levemir) [Levemir 30 units SQ DAILY@0700 units 05/22/19 Vial] RX: Insulin Sliding Scale [Novolog 1 vial SQ TIDAC units 05/22/19 Vial Sliding Scale -] Assessment and plan: Patient is an 84yom with PMhx CAD, s/p CABG, and stents, PVD,h/o bradycardia, HTN, HLP, poorly controlled DM, CKD 3, GERD, recurrent UTIs, diastolic heart failure, who presented with elevated sugars # ULISES on CKD: base line cr 1.5-2.-->2.7-->3.0-->1.9 today ,repeat labs outpatient , patient can be discharge home. # Hyperglycemia: will cont levemir daily 30units in am switched from BId dosing to once a day dosing. continue home meds # Asymptomatic bacteruria. will not treat # HTN urgency: resolved. cont home meds # H/o diastolic CHF: hold lasix for 3 days ,repeat labs before starting the medication # H/o CAD, s/p CABG and stents. continue plavix and statin DVT Px: heparin SQ dc patient home.
--- NOTE | 2019-05-22 16:00 | DS ---
Physical Exam: SUBJECTIVE: Patient seen and examined OBJECTIVE: Vital Signs Period Temp Pulse Resp BP Sys/Mckeon Pulse Ox Last 24 Hr 97.1 F-98.5 F 60-81 20-20 136-150/57-71 95-98 PHYSICAL EXAM GENERAL: The patient is awake, alert, and fully oriented, in no acute distress. HEAD: Normal with no signs of trauma. EYES: PERRL, extraocular movements intact, sclera anicteric, conjunctiva clear. ENT: Ears normal, nares patent, oropharynx clear without exudates, moist mucous membranes. NECK: Trachea midline, full range of motion, supple. LUNGS: Breath sounds equal, clear to auscultation bilaterally, no wheezes, no crackles, no accessory muscle use. HEART: Regular rate and rhythm, S1, S2 without murmur, rub or gallop. ABDOMEN: Soft, nontender, nondistended, normoactive bowel sounds, no guarding, no rebound, no hepatosplenomegaly, no masses. EXTREMITIES: 2+ pulses, warm, well-perfused, no edema. NEUROLOGICAL: Cranial nerves II through XII grossly intact. Normal speech, gait not observed. PSYCH: Normal mood, normal affect. SKIN: Warm, dry, normal turgor, no rashes or lesions noted. LABS Laboratory Results - last 24 hr 05/21/19 05/21/19 05/22/19 17:40 21:10 05:34 Sodium Potassium Chloride Carbon Dioxide Anion Gap BUN Creatinine Est GFR (CKD-EPI)AfAm Est GFR (CKD-EPI)NonAf POC Glucometer 166 119 184 Random Glucose Calcium Phosphorus Magnesium Total Bilirubin AST ALT Alkaline Phosphatase Total Protein Albumin 05/22/19 06:40 Sodium 145 Potassium 3.8 Chloride 112 H Carbon Dioxide 25 Anion Gap 7 L BUN 32.1 H Creatinine 1.9 H Est GFR (CKD-EPI)AfAm 27.57 Est GFR (CKD-EPI)NonAf 23.79 POC Glucometer Random Glucose 193 H Calcium 8.5 Phosphorus 3.3 Magnesium 2.1 Total Bilirubin 0.3 AST 25 ALT 30 Alkaline Phosphatase 90 Total Protein 5.8 L Albumin 2.8 L HOSPITAL COURSE: Date of Admission:05/15/19 Date of Discharge: 05/22/19 Discharge Summary Problems reviewed: Yes Reason For Visit: UTI Condition: Improved - Instructions Diet, Activity, Other Instructions: YOUR VISIT You came to the hospital because your blood sugar was high. You were admitted to the hospital for care of this problem. While here you were only able to walk a short distance and can benefit from rehabilitation. You may now go to rehabilitation. While at rehab, you should be instructed on how to take you medicines and help prevent the need to return to the hospital. MEDICATIONS Please continue to take your home medications as prescribed. It is important you take all of your medications. Below are some changes to help better manage your diabetes: MEDICATION CHANGES PLEASE TAKE YOUR INSULIN WITH THE HELP/SUPERVISION OF YOUR HEALTH AID/VISITING NURSE 1. *Please take your Levemir injection 30 units EVERY MORNING* 2. Insulin sliding scale three times a day with meals according to instructions below Blood sugar Units of insulin to use 0-100 0 150-200 2 201-250 4 301-350 6 351-400 8 401-450 10 and call your doctor DO NOT TAKE YOUR LASIX/FUROSEMIDE FOR *2 DAYS*. You can resume on May 24, 2018. Please make an appointment with your pick and shovel worker within 1 week to be assessed. ADDITIONAL CARE Please make an appointment to see your primary care provider, Dr. Hua, 1 week from today. *Please have your blood drawn to measure creatinine* Please make an appointment to see a pick and shovel worker for a stress test. A referral to Dr. Jules has been provided. ADDITIONAL INFORMATION Please call 911 or come directly to the emergency department if you experience unusual headache, vision change, shortness of breath, chest pain, numbness, tingling, loss of alertness/awareness, loss of function, unusual bleeding or any alarming symptoms. Referrals: Jorden Jules MD [Staff Physician] - Deric Hua MD [Staff Physician] - Disposition: [facility] - Home Medications Comprehensive Discharge Medication List: Ambulatory Orders Clopidogrel Bisulfate [Plavix] 75 mg PO DAILY 02/08/18 Atorvastatin Ca [Lipitor] 80 mg PO HS 05/15/19 Carvedilol 3.125 mg PO DAILY 05/15/19 Amlodipine Besylate 10 mg PO DAILY 05/16/19 Ergocalciferol (Vitamin D2) [Vitamin D2] 1 cap PO WEEKLY 05/16/19 Gabapentin 200 mg PO TID 05/16/19 Tizanidine HCl 2 mg PO DAILY 05/16/19 Amlodipine Besylate [Norvasc -] 10 mg PO DAILY tablet 05/22/19 Aspirin [ASA -] 81 mg PO DAILY tab.chew 05/22/19 Insulin (Levemir) [Levemir Vial] 30 units SQ DAILY@0700 units 05/22/19 Insulin Sliding Scale [Novolog Vial Sliding Scale -] 1 vial SQ TIDAC units 07/10 ATTENDING PHYSICIAN STATEMENT I saw and evaluated the patient. I reviewed the resident's note and discussed the case with the resident. I agree with the resident's findings and plan as documented. SUBJECTIVE: OBJECTIVE: ASSESSMENT AND PLAN:
== END 2019-05-22 12:28 | DRG 638 ==
LOC: JER 13:55 → JERBED 16:23 → J5S 17:38
PROVIDERS: ADMIT Internal Medicine; ATTEND Internal Medicine
DX: E11.65 Type 2 diabetes mellitus with hyperglycemia (principal); I13.0 Hypertensive heart and chronic kidney disease with heart failure and stage 1 through stage 4 chronic kidney disease, or unspecified chronic kidney disease; I50.30 Unspecified diastolic (congestive) heart failure; N39.0 Urinary tract infection, site not specified; E87.1 Hypo-osmolality and hyponatremia; I24.8 Other forms of acute ischemic heart disease; N17.9 Acute kidney failure, unspecified; I25.10 Atherosclerotic heart disease of native coronary artery without angina pectoris; E78.5 Hyperlipidemia, unspecified; E11.51 Type 2 diabetes mellitus with diabetic peripheral angiopathy without gangrene; K21.9 Gastro-esophageal reflux disease without esophagitis; E11.22 Type 2 diabetes mellitus with diabetic chronic kidney disease; N18.3 Chronic kidney disease, stage 3 (moderate); I44.0 Atrioventricular block, first degree; I16.0 Hypertensive urgency; R19.7 Diarrhea, unspecified; Z86.73 Personal history of transient ischemic attack (TIA), and cerebral infarction without residual deficits; Z95.5 Presence of coronary angioplasty implant and graft
CPT/HCPCS: 36415; 36600; 71045-TC-FY; 80048; 80053; 81003; 82010; 82375; 82550; 82803; 82962; 83050; 83605; 83735; 84100; 84484; 85025; 85027; 87086; 87186; 87324; 87449; 93005; 93010; 97116-GP; 97162-GP; 99284-25; J0131; J1644; J7030

== ENCOUNTER 2019-07-18 10:10 | Inpatient (IN) | payer OTHER, MEDICARE ==
[2019-07-18] MEDS ORDERED: ACETAMINOPHEN 1000 MG/100 ML VIAL (NON FORMULARY) IVPB ONE (11:01)
[2019-07-18] MEDS ORDERED: FAMOTIDINE 20 MG/50 ML IVPB 20 MG/50 ML MG IVPB ONE ×2 (11:01→13:01)
[2019-07-18] MEDS ORDERED: SODIUM CHLORIDE 1,000 ML IV STA (11:01)
--- NOTE | 2019-07-18 11:01 | PDOC ---
History of Present Illness - General Chief Complaint: Weakness Stated Complaint: WEAKNESS,VOMITING Time Seen by Provider: 07/18/19 10:49 History Source: Patient Exam Limitations: Language Barrier - History of Present Illness Initial Comments: History is limited because patient is a poor historian and primarily speaks [place]. Geeta Ramos is an 84 yo F w a pmh of HTN, HLD, IDDM, TIA, CAD s/p CABG/PCIs, diastolic CHFpEF, PVD, CKD, OA, and GERD presents to the ER hypotensive after 3 episodes of yellow NBNB vomitus earlier this morning with generalized weakness and abdominal pain worst in the epigastric and LLQ regions. The patient is a poor historian and does not provide much history. She states her lower back hurts when she tries to lean forward. She also endorses significant worsening of her lower extremity edema over the past few weeks. Her lower legs are swollen and painful. She also endorses dysuria, frequency, urgency, and lower abdominal pain. She was supposed to have an outpatient renal appointment today with Dr. Cartwright but was not able to attend bc she is now here in the ER, she requests to see him or an associate in the hospital. Aid at bedside also states that patient's glucose has been high in the 4 and 500's for the last few days. PCP: Dr. Hua PSH: 4 stents placed, cholecystectomy, hysterectomy Allergies: codeine, orange juice Social Hx: Denies smoking, drinking, or other substance usage. Past History - Past Medical History Allergies/Adverse Reactions: Allergies Allergy/AdvReac Type Severity Reaction Status Date / Time codeine [Codeine] Allergy Verified 07/18/19 10:29 orange juice Allergy Verified 07/18/19 10:29 Home Medications: Ambulatory Orders Clopidogrel Bisulfate [Plavix] 75 mg PO DAILY 02/08/18 Atorvastatin Ca [Lipitor] 80 mg PO HS 05/15/19 Carvedilol 3.125 mg PO DAILY 05/15/19 Amlodipine Besylate 10 mg PO DAILY 05/16/19 Ergocalciferol (Vitamin D2) [Vitamin D2] 1 cap PO WEEKLY 05/16/19 Gabapentin 200 mg PO TID 05/16/19 Tizanidine HCl 2 mg PO DAILY 05/16/19 Amlodipine Besylate [Norvasc -] 10 mg PO DAILY tablet 05/22/19 Aspirin [ASA -] 81 mg PO DAILY tab.chew 05/22/19 Insulin (Levemir) [Levemir Vial] 30 units SQ DAILY@0700 units 05/22/19 Insulin Sliding Scale [Novolog Vial Sliding Scale -] 1 vial SQ TIDAC units 07/10 Anemia: Yes Asthma: No Cancer: No Cardiac Disorders: Yes (OR, CAD s/p CABG + PCI 2013, Diastolic CHF, PVD) CVA: Yes (CVA 22 YRS AGO - (R)SIDED WEAKNESS) COPD: No CHF: Yes Dementia: No Diabetes: Yes (IDDM) GI Disorders: Yes (GERD) Disorders: Yes (CHRONIC UTI'S) HTN: Yes Hypercholesterolemia: Yes Liver Disease: No Seizures: No Thyroid Disease: No - Surgical History Abdominal Surgery: No Appendectomy: No Cardiac Surgery: Yes ([facility] 2011, ENDARDERECTOMY, 2 STENTS) Cholecystectomy: Yes Lung Surgery: No Neurologic Surgery: No Orthopedic Surgery: No - Immunization History Immunization Up to Date: No - Psycho Social/Smoking Cessation Hx Smoking Status: No Smoking History: Former smoker Have you smoked in the past 12 months: No Number of Cigarettes Smoked Daily: 0 Information on smoking cessation initiated: No Hx Alcohol Use: No Drug/Substance Use Hx: No Substance Use Type: None Hx Substance Use Treatment: No Review of Systems - Review of Systems Able to Perform ROS?: Yes Comments:: CONSTITUTIONAL: Present: fatigue, chills Absent: fever EYES: Absent: visual changes ENT: Absent: ear pain, no sore throat CARDIOVASCULAR: Absent: chest pain, no palpitations RESPIRATORY: Present: SOB Absent: cough GI: Present: Abdominal pain, nausea. vomiting Absent: no constipation, no diarrhea GENITOURINARY: Present: Dysuria, frequency Absent: no hematuria MUSKULOSKELETAL: Present: back pain, arthralgia, myalgia SKIN: Absent: rash NEURO: Absent: headache *Physical Exam - Vital Signs Last Vital Signs Temp Pulse Resp BP Pulse Ox 66 16 145/50 L 97 07/18/19 10:10 07/18/19 10:10 07/18/19 10:10 07/18/19 10:10 - Physical Exam GENERAL: Patient appears fatigued and pale. Mild apparent distress. HEENT: Normocephalic, atraumatic. PERRL, EOM intact. CARDIOVASCULAR: Regular rate and rhythm. PULMONARY: Mild bibasilar crackles. No evidence of respiratory distress. No wheezing or rhonchi. ABDOMEN: There is significant epigastric and LLQ abdominal TTP. EXTREMITIES: Limited ROM in all four extremities. 2+ edema in both lower extremities. SKIN: Warm, dry. NEUROLOGICAL: No focal neurological deficits. ED Treatment Course - LABORATORY CBC & Chemistry Diagram: 07/19/19 07:10 07/19/19 07:10 Medical Decision Making - Medical Decision Making History is limited because patient is a poor historian and primarily speaks [place]. Geeta Ramos is an 84 yo F w a pmh of HTN, HLD, IDDM, TIA, CAD s/p CABG/PCIs, diastolic CHFpEF, PVD, CKD, OA, and GERD presents to the ER hypotensive after 3 episodes of yellow NBNB vomitus earlier this morning with generalized weakness and abdominal pain worst in the epigastric and LLQ regions. The patient is a poor historian and does not provide much history. She states her lower back hurts when she tries to lean forward. She also endorses significant worsening of her lower extremity edema over the past few weeks. Her lower legs are swollen and painful. She also endorses dysuria, frequency, urgency, and lower abdominal pain. She was supposed to have an outpatient renal appointment today with Dr. Cartwright but was not able to attend bc she is now here in the ER, she requests to see him or an associate in the hospital. Aid at bedside also states that patient's glucose has been high in the 4 and 500's for the last few days. Vital Signs Temp Pulse Resp BP Pulse Ox 98.1 F 65 16 129/42 L 96 07/18/19 11:11 07/18/19 11:11 07/18/19 11:11 07/18/19 11:11 07/18/19 11:11 DDx is large but includes (NLT): electrolyte/metabolic disturbance, anemia, SBO , pancreatitis, gastroenteritis, heart failure exacerbation, arrythmia, UTI, pyelonephritis, DKA, HHNS, diverticulitis Plan: Labs, Urine, CTAP, EKG, CXR, supportive care treatment, admition to hospital. EKG: No ST elevations or depressions CXR: No acute pathology Labs: CMP Sodium 139 mmol/L (136-145) 07/19/19 07:10 Potassium 5.3 mmol/L (3.5-5.1) H 07/19/19 07:10 Chloride 110 mmol/L (98-107) H 07/19/19 07:10 Carbon Dioxide 22 mmol/L (21-32) 07/19/19 07:10 Anion Gap 7 MMOL/L (8-16) L 07/19/19 07:10 BUN 57.3 mg/dL (7-18) H 07/19/19 07:10 Creatinine 2.5 mg/dL (0.55-1.3) H 07/19/19 07:10 Est GFR (CKD-EPI)AfAm 19.79 07/19/19 07:10 Est GFR (CKD-EPI)NonAf 17.07 07/19/19 07:10 POC Glucometer 226 UNITS (80-120) 07/19/19 06:54 Random Glucose 233 mg/dL (74-106) H 07/19/19 07:10 Lactic Acid 1.8 mmol/L (0.4-2.0) 07/18/19 10:30 Calcium 8.6 mg/dL (8.5-10.1) 07/19/19 07:10 Phosphorus 5.6 mg/dL (2.5-4.9) H 07/18/19 10:30 Magnesium 2.5 mg/dL (1.8-2.4) H 07/18/19 10:30 Total Bilirubin 0.3 mg/dL (0.2-1) 07/18/19 10:30 AST 21 U/L (15-37) 07/18/19 10:30 ALT 29 U/L (13-61) 07/18/19 10:30 Alkaline Phosphatase 101 U/L (45-117) 07/18/19 10:30 Creatine Kinase 21 U/L (26-192) L 07/18/19 21:10 Troponin I 0.07 ng/ml (0.00-0.05) H 07/18/19 21:10 B-Natriuretic Peptide 663.9 pg/ml (5-450) H 07/18/19 10:30 Total Protein 6.8 g/dl (6.4-8.2) 07/18/19 10:30 Albumin 3.3 g/dl (3.4-5.0) L 07/18/19 10:30 Lipase 181 U/L (73-393) 07/18/19 10:30 Beta-Hydroxybutyrate 1.3 mg/dL (0.2-2.8) 07/18/19 10:30 CTAP: No acute intra-abdominal pathology Disposition: Med/Surg Discharge - Discharge Information Problems reviewed: Yes Clinical Impression/Diagnosis: Malaise and fatigue, Inability to ambulate due to hip, Elevated troponin, Weakness, Bacteriuria, Obesities, morbid, Unsteady gait Nausea & vomiting Qualifiers: Vomiting type: unspecified Vomiting Intractability: unspecified Qualified Code( s): R11.2 - Nausea with vomiting, unspecified Fediq-ly-ciqtmhe kidney injury Qualifiers: Acute renal failure type: unspecified Chronic kidney disease stage: unspecified stage Qualified Code(s): N17.9 - Acute kidney failure, unspecified CKD (chronic kidney disease) Qualifiers: Chronic kidney disease stage: unspecified stage Qualified Code(s): N18.9 - Chronic kidney disease, unspecified CAD (coronary artery disease) Qualifiers: Coronary Disease-Associated Artery/Lesion type: unspecified vessel or lesion type [place] vs. transplanted heart: unspecified whether [place] or transplanted heart Associated angina: with unspecified angina Qualified Code(s): I25.119 - Atherosclerotic heart disease of [place] coronary artery with unspecified angina pectoris CHF exacerbation Qualifiers: Heart failure type: unspecified Qualified Code(s): I50.9 - Heart failure, unspecified Condition: Stable - Admission Yes - Follow up/Referral - Patient Discharge Instructions - Post Discharge Activity
[2019-07-18] MEDS ORDERED: ONDANSETRON 4 MG/2 ML VIAL IVPUSH ONE (11:02)
[2019-07-18 11:55] LABS: BASO % 1.2 % (0-2.0); EOS % 2.3 % (0-4.5); HEMATOCRIT 38.3 % (32.4-45.2); HEMOGLOBIN 12.6 GM/dL (10.7-15.3); LYMPH % 22.6 % (8-40); MCH 29.3 pg (25.7-33.7); MEAN CELL VOLUME 88.8 fl (80-96); MEAN PLT VOLUME 10.4 fl (7.5-11.1); NEUT % 68.9 % (42.8-82.8); PLATELET COUNT 329 K/MM3 (134-434); RBC 4.31 M/mm3 (3.60-5.2); RDW 16.2 % (11.6-15.6); WHITE BLOOD COUNT 10.3 K/mm3 (4.0-10.0)
--- NOTE | 2019-07-18 11:57 | PDOC ---
Attending Attestation - Resident Resident Name: Geovanny Herron - ED Attending Attestation I have performed the following: I have examined & evaluated the patient, The case was reviewed & discussed with the resident, I agree w/resident's findings & plan - HPI HPI: 07/18/19 11:54 84 yo F w a pmh of HTN, HLD, IDDM, TIA, CAD s/p CABG/PCIs, diastolic CHFpEF, PVD , CKD, OA, and GERD presents to the ER hypotensive after 3 episodes of yellow NBNB vomiting earlier this morning with generalized weakness and abdominal pain worst in the epigastric and suprapubic regions. She states her lower back hurts when she tries to lean forward. She also endorses significant worsening of her lower extremity edema over the past few weeks. Her lower legs are swollen and painful. She also endorses dysuria, frequency, urgency, and lower abdominal pain. Her lower extremity weakness causes her to feel unsteady. other associated sx include dizziness and her blood sugar has been elevated in the last severeal days. The patient is a poor historian and does not provide much history, she has her family members at bedside providing collateral information.. PCP: Dr. Hua PSH: 4 stents placed, cholecystectomy, hysterectomy Allergies: codeine, orange juice - Physicial Exam PE: 07/18/19 11:56 Agree with the resident's HPI and PE as documented in the electronic medical record. NAD, well appearing, EOMI, PERRL, nl conjunctiva, anicteric; neck supple. lungs with lower lobe crackles. holosystolic murmur. abdomen soft +epigastric and suprapubic TTP, obese. No rebound, no guarding. Back nontender. no CVAT. VALENTE x4 , no focal neuro deficits. +bilateral peripheral edema. normal color for ethnicity, WWP. 07/18/19 12:01 - Medical Decision Making 07/18/19 11:57 Vital Signs Temp Pulse Resp BP Pulse Ox 98.1 F 65 16 129/42 L 96 07/18/19 11:11 07/18/19 11:11 07/18/19 11:11 07/18/19 11:11 07/18/19 11:11 DDx abdominal pain: Renal colic, biliary colic, metabolic/electrolyte derangements. GERD, PUD, esophageal spasm, pancreatitis, hepatitis, constipation , colitis, gastroenteritis, cholecystitis, UTI, pyelonephritis, ileus, SBO, medication side effect, hernia, appendicitis, diverticulitis, mesenteric ischemia. msk strain, mesenteric adenitis, psoas abscess. labs and lytes with baseline Cr/gfr, lytes wnl. +trop, lower than prior results, today 0.06 (has fluctuated in the past), no acute ekg changes , will trend/serial trops. ekg nsr, nonspecific t wave abnormalities ASA for cardioprotection now, already on dual antiplatelet asa and plavix CT a/p neg for acute pathology. UA neg for infection admit for acute on ckd. weakness, difficulty ambulating and unsafe for discharge. +trop, trend and observation, serial trop/ekg, monitoring. likely chronic, as prior results also elevated. admitted to hospitalist Dr Miller. 07/18/19 17:51 Heart Score/ECG Review #1 ECG reviewed & interpreted by me at: 10:35 General ECG Interpretation: Sinus Rhythm, Normal Rate, Normal Intervals Compared to previous ECG there are: No significant change 07/18/19 14:12 EKG normal sinus rhythm 66 bpm, no interval abnormalities, narrow QRS, ST and T wave segments and morphology normal. Nonspecific T wave abnormalities
[2019-07-18 12:07] LABS: INR 0.89 (0.83-1.09); PROTHROMBIN TIME (PATIENT) 10.5 SEC (9.7-13.0)
[2019-07-18 12:10] LABS: ACTIVATED PTT 31.6 SECONDS (25.2-36.5)
[2019-07-18 12:42] LABS: ALBUMIN 3.3 g/dl (3.4-5.0); BILIRUBIN,TOTAL 0.3 mg/dL (0.2-1); BLOOD UREA NITROGEN 60.5 mg/dL (7-18); CALCIUM 9.1 mg/dL (8.5-10.1); CREATININE 2.7 mg/dL (0.55-1.3); POTASSIUM 5.4 mmol/L (3.5-5.1); TOT PROT 6.8 g/dl (6.4-8.2)
[2019-07-18] MEDS ORDERED: ONDANSETRON 4 MG/2 ML VIAL ONE (13:01)
[2019-07-18] MEDS ORDERED: ACETAMINOPHEN INJECTION 100 ML IVPB ONE (13:01)
[2019-07-18 13:45] LABS: N-TERMINAL BNP 663.9 pg/ml (5-450); PHOSPHOROUS 5.6 mg/dL (2.5-4.9)
[2019-07-18 13:46] LABS: MAGNESIUM 2.5 mg/dL (1.8-2.4)
[2019-07-18] MEDS ORDERED: ASPIRIN 81 MG CHEWABLE TABLETS PO ONE (14:55)
[2019-07-18] MEDS ORDERED: SODIUM CHLORIDE 0.9% 500 ML INFUS.BAG IV ONE (14:58)
[2019-07-18] MEDS ORDERED: FUROSEMIDE 40 MG/4 ML INJECTABLE VIAL IVPUSH ONE (14:58)
[2019-07-18 15:50] LABS: EPI CELLS 3.5 /HPF (0-5/HPF); HYALINE CASTS 1 /lpf (0-8); URINE APPEARANCE CLEAR; URINE BACTERIA 1645.7 /hpf (NEGATIVE); URINE BILIRUBIN NEGATIVE (NEGATIVE); URINE COLOR YELLOW; URINE GLUCOSE (UA) 1+ (NEGATIVE); URINE KETONE NEGATIVE (NEGATIVE); URINE LEUK ESTERASE NEGATIVE (NEGATIVE); URINE NITRITE NEGATIVE (NEGATIVE); URINE PROTEIN 3+ (NEGATIVE); URINE RBC 2 /hpf (0-4); URINE UROBILINOGEN 0.2 mg/dL (0.2-1.0)
[2019-07-18] MEDS ORDERED: FUROSEMIDE 40 MG/4 ML INJECTABLE VIAL ONE (16:26)
[2019-07-18] MEDS ORDERED: ASPIRIN 81 MG CHEWABLE TABLETS ONE ×2 (16:26→18:41)
[2019-07-18 16:27] LABS: URINE WBC 12.7 /hpf (0-5)
[2019-07-18] MEDS ORDERED: SODIUM CHLORIDE 0.45% 1,000 ML IV SCH (18:00)
--- NOTE | 2019-07-18 18:08 | HP ---
CHIEF COMPLAINT: Vomited 3 times this morning PCP:Dr. Hua HISTORY OF PRESENT ILLNESS: 84 yo F w a pmh of HTN, HLD, IDDM, TIA, CAD s/p CABG/PCIs, diastolic CHFpEF, PVD , CKD, OA, and GERD presents to the ER hypotensive after 3 episodes of yellow NBNB vomitus earlier this morning with generalized weakness and abdominal pain worst in the epigastric and LLQ regions. The patient is a poor historian and does not provide much history. She states her lower back hurts when she tries to lean forward. She also endorses significant worsening of her lower extremity edema over the past few weeks. Her lower legs are swollen and painful. She also endorses dysuria, frequency, urgency, and lower abdominal pain. She was supposed to have an outpatient renal appointment today with Dr. Cartwright but was not able to attend bc she is now here in the ER, she requests to see him or an associate in the hospital. Aid at bedside also states that patient's glucose has been high in the 4 and 500's for the last few days. She denies any fever chills she is hungry no abdominal pain ER course was notable for:High BUN/creatinine afebrile clear urine nonfocal (1) (2) (3) Recent Travel:None PAST MEDICAL HISTORY:84 yo F w a pmh of HTN, HLD, IDDM, TIA, CAD s/p CABG/PCIs, diastolic CHFpEF, PVD, CKD, OA, and GERD PAST SURGICAL HISTORY:CABG also PCI and stent for peripheral vascular disease Social History:No alcohol drug or smoking Smoking: Alcohol: Drugs: Allergies codeine [Codeine] Allergy (Verified 07/18/19 10:29) orange juice Allergy (Verified 07/18/19 10:29) HOME MEDICATIONS: Home Medications Medication Instructions Recorded Clopidogrel Bisulfate [Plavix] 75 mg PO DAILY 02/08/18 Atorvastatin Ca [Lipitor] 80 mg PO HS 05/15/19 Carvedilol 3.125 mg PO DAILY 05/15/19 Amlodipine Besylate 10 mg PO DAILY 05/16/19 Ergocalciferol (Vitamin D2) 1 cap PO WEEKLY 05/16/19 [Vitamin D2] Gabapentin 200 mg PO TID 05/16/19 Tizanidine HCl 2 mg PO DAILY 05/16/19 Amlodipine Besylate [Norvasc -] 10 mg PO DAILY tablet 05/22/19 Aspirin [ASA -] 81 mg PO DAILY tab.chew 05/22/19 Insulin (Levemir) [Levemir Vial] 30 units SQ DAILY@0700 units 05/22/19 Insulin Sliding Scale [Novolog 1 vial SQ TIDAC units 05/22/19 Vial Sliding Scale -] REVIEW OF SYSTEMS CONSTITUTIONAL: Absent: fever, chills, diaphoresis, generalized weakness, malaise, loss of appetite, weight change HEENT: Absent: rhinorrhea, nasal congestion, throat pain, throat swelling, difficulty swallowing, mouth swelling, ear pain, eye pain, visual changes CARDIOVASCULAR: Absent: chest pain, syncope, palpitations, irregular heart rate, lightheadedness , peripheral edema RESPIRATORY: Absent: cough, shortness of breath, dyspnea with exertion, orthopnea, wheezing, stridor, hemoptysis GASTROINTESTINAL: Absent: abdominal pain, abdominal distension, , diarrhea, constipation, melena, hematochezia, Present nausea and vomiting GENITOURINARY: Absent: dysuria, frequency, urgency, hesitancy, hematuria, flank pain, genital pain MUSCULOSKELETAL: Absent: myalgia, arthralgia, joint swelling, back pain, neck pain SKIN: Absent: rash, itching, pallor HEMATOLOGIC/IMMUNOLOGIC: Absent: easy bleeding, easy bruising, lymphadenopathy, frequent infections ENDOCRINE: Absent: unexplained weight gain, unexplained weight loss, heat intolerance, cold intolerance NEUROLOGIC: Absent: headache, focal weakness or paresthesias, dizziness, unsteady gait, seizure, mental status changes, bladder or bowel incontinence PSYCHIATRIC: Absent: anxiety, depression, suicidal or homicidal ideation, hallucinations. PHYSICAL EXAMINATION Vital Signs - 24 hr 07/18/19 07/18/19 10:10 11:11 Temperature 98.1 F Pulse Rate 66 Pulse Rate [ 65 Left Radial] Respiratory 16 16 Rate Blood Pressure 145/50 L Blood Pressure 129/42 L [Right Arm] O2 Sat by Pulse 97 96 Oximetry (%) GENERAL: Awake, alert, and fully oriented, in no acute distress. HEAD: Normal with no signs of trauma. EYES: Pupils equal, round and reactive to light, extraocular movements intact, sclera anicteric, conjunctiva clear. No lid lag. EARS, NOSE, THROAT: Ears normal, nares patent, oropharynx clear without exudates. Moist mucous membranes. NECK: Normal range of motion, supple without lymphadenopathy, JVD, or masses. LUNGS: Breath sounds equal, clear to auscultation bilaterally. No wheezes, and no crackles. No accessory muscle use. HEART: Regular rate and rhythm, normal S1 and S2 without murmur, rub or gallop. ABDOMEN: Soft, nontender, not distended, normoactive bowel sounds, no guarding, no rebound, no masses. No hepatomegaly or splenomegaly. MUSCULOSKELETAL: Normal range of motion at all joints. No bony deformities or tenderness. No CVA tenderness. UPPER EXTREMITIES: 2+ pulses, warm, well-perfused. No cyanosis. No clubbing. No peripheral edema. LOWER EXTREMITIES: 2+ pulses, warm, Trace leg edema NEUROLOGICAL: Cranial nerves II-XII intact. Normal speech. Normal gait. PSYCHIATRIC: Cooperative. Good eye contact. Appropriate mood and affect. SKIN: Warm, dry, normal turgor, no rashes or lesions noted, normal capillary refill. Laboratory Results - last 24 hr 07/18/19 07/18/19 07/18/19 10:24 10:30 10:30 WBC 10.3 H RBC 4.31 Hgb 12.6 Hct 38.3 MCV 88.8 MCH 29.3 MCHC 33.0 RDW 16.2 H Plt Count 329 MPV 10.4 Absolute Neuts (auto) 7.1 Neutrophils % 68.9 Lymphocytes % 22.6 D Monocytes % 5.0 Eosinophils % 2.3 Basophils % 1.2 Nucleated RBC % 0 PT with INR INR PTT (Actin FS) Sodium 139 Potassium 5.4 H Chloride 110 H Carbon Dioxide 22 Anion Gap 7 L BUN 60.5 H Creatinine 2.7 H Est GFR (CKD-EPI)AfAm 18.03 Est GFR (CKD-EPI)NonAf 15.56 POC Glucometer 238 Random Glucose 225 H Lactic Acid Calcium 9.1 Phosphorus Magnesium Total Bilirubin 0.3 AST 21 ALT 29 Alkaline Phosphatase 101 Creatine Kinase Troponin I B-Natriuretic Peptide Total Protein 6.8 Albumin 3.3 L Lipase Beta-Hydroxybutyrate Urine Color Urine Appearance Urine pH Ur Specific Talbott Urine Protein Urine Glucose (UA) Urine Ketones Urine Blood Urine Nitrite Urine Bilirubin Urine Urobilinogen Ur Leukocyte Esterase Urine WBC (Auto) Urine RBC (Auto) Urine Casts (Auto) U Epithel Cells (Auto) Urine Bacteria (Auto) 07/18/19 07/18/19 07/18/19 10:30 10:30 10:30 WBC RBC Hgb Hct MCV MCH MCHC RDW Plt Count MPV Absolute Neuts (auto) Neutrophils % Lymphocytes % Monocytes % Eosinophils % Basophils % Nucleated RBC % PT with INR 10.50 INR 0.89 PTT (Actin FS) 31.6 Sodium Potassium Chloride Carbon Dioxide Anion Gap BUN Creatinine Est GFR (CKD-EPI)AfAm Est GFR (CKD-EPI)NonAf POC Glucometer Random Glucose Lactic Acid 1.8 Calcium Phosphorus 5.6 H Magnesium 2.5 H Total Bilirubin AST ALT Alkaline Phosphatase Creatine Kinase 37 Troponin I 0.06 H B-Natriuretic Peptide 663.9 H Total Protein Albumin Lipase 181 Beta-Hydroxybutyrate 1.3 Urine Color Urine Appearance Urine pH Ur Specific Tal[place]ott Urine Protein Urine Glucose (UA) Urine Ketones Urine Blood Urine Nitrite Urine Bilirubin Urine Urobilinogen Ur Leukocyte Esterase Urine WBC (Auto) Urine RBC (Auto) Urine Casts (Auto) U Epithel Cells (Auto) Urine Bacteria (Auto) 07/18/19 14:54 WBC RBC Hgb Hct MCV MCH MCHC RDW Plt Count MPV Absolute Neuts (auto) Neutrophils % Lymphocytes % Monocytes % Eosinophils % Basophils % Nucleated RBC % PT with INR INR PTT (Actin FS) Sodium Potassium Chloride Carbon Dioxide Anion Gap BUN Creatinine Est GFR (CKD-EPI)AfAm Est GFR (CKD-EPI)NonAf POC Glucometer Random Glucose Lactic Acid Calcium Phosphorus Magnesium Total Bilirubin AST ALT Alkaline Phosphatase Creatine Kinase Troponin I B-Natriuretic Peptide Total Protein Albumin Lipase Beta-Hydroxybutyrate Urine Color Yellow Urine Appearance Clear Urine pH 5.0 D Ur Specific Talbott 1.015 Urine Protein 3+ H Urine Glucose (UA) 1+ H Urine Ketones Negative Urine Blood Negative Urine Nitrite Negative Urine Bilirubin Negative Urine Urobilinogen 0.2 Ur Leukocyte Esterase Negative Urine WBC (Auto) 12.7 Urine RBC (Auto) 2 Urine Casts (Auto) 1 U Epithel Cells (Auto) 3.5 Urine Bacteria (Auto) 1645.7 CAT scan of the lumbosacral spine shows impression multilevel degenerative disc disease minimal anterior lithiasis of L4 over L5 diffuse spinal arthritis. Chest x-ray is no pneumonia ASSESSMENT/PLAN: 84 yo F w a pmh of HTN, HLD, IDDM, TIA, CAD s/p CABG/PCIs, diastolic CHFpEF, PVD , CKD, OA, and GERD presents to the ER hypotensive after 3 episodes of yellow NBNB vomitus earlier this morning with generalized weakness and abdominal pain worst in the epigastric and LLQ regions. CAT scan of the abdomen is negative for any acute pathology Urinalysis shows no infection or leuk esterase negative Slightly high BUN/creatinine possible dehydration acute on chronic renal insufficiency Start IV fluids half-normal saline at 75 cc an hour requested nephrology consult. Diabetes hypertension coronary artery disease PVD will continue her home medication For GERD will start her on Protonix 40 mg once a day Asked physical therapy For DVT prophylaxis will subcu heparin because high creatinine Lovenox is contraindicated Activity as tolerated and diabetic diet Visit type - Emergency Visit Emergency Visit: Yes ED Registration Date: 07/18/19 Care time: The patient presented to the Emergency Department on the above date and was hospitalized for further evaluation of their emergent condition. - New Patient This patient is new to me today: Yes Date on this admission: 07/18/19 - Critical Care Critical Care patient: No
[2019-07-18] MEDS ORDERED: PANTOPRAZOLE 40 MG TABLET ONE (18:41)
[2019-07-18] MEDS: PANTOPRAZOLE 40 MG TABLET PO SCH (18:50)
[2019-07-18 21:13] LABS: VENOUS PC02 39.1 mmHg (38-52); VENOUS PH 7.33 (7.31-7.41); VENOUS PO2 52.4 mmHg (28-48)
[2019-07-18] MEDS: GABAPENTIN 100 MG CAPSULE PO SCH (21:50)
[2019-07-18] MEDS: HEPARIN NA (PORCINE) 5,000 UNITS/ML 1ML VIAL SQ SCH (21:50)
[2019-07-18] MEDS: ATORVASTATIN CA 80 MG TABLET (FP) PO SCH (21:50)
[2019-07-18] MEDS: INSULIN SLIDING SCALE (NOVOLOG) 1 VIAL SQ SCH (21:53)
[2019-07-18 23:29] VITALS: BMI 37.8
[2019-07-19] MEDS: INSULIN (LEVEMIR) 100 UNITS/ML UNITS SQ SCH (06:56)
[2019-07-19] MEDS: INSULIN SLIDING SCALE (NOVOLOG) 1 VIAL SQ SCH ×4 (06:57→22:17)
[2019-07-19] MEDS: GABAPENTIN 100 MG CAPSULE PO SCH ×3 (06:57→22:11)
[2019-07-19 08:11] LABS: BASO % 0.8 % (0-2.0); EOS % 4.8 % (0-4.5); HEMATOCRIT 33.6 % (32.4-45.2); LYMPH % 37.8 % (8-40); MCH 29.4 pg (25.7-33.7); MCHC 32.9 g/dl (32.0-36.0); MEAN CELL VOLUME 89.4 fl (80-96); MEAN PLT VOLUME 10.5 fl (7.5-11.1); MONO % 6.3 % (3.8-10.2); NEUT % 50.3 % (42.8-82.8); PLATELET COUNT 281 K/MM3 (134-434); RBC 3.75 M/mm3 (3.60-5.2); RDW 15.8 % (11.6-15.6); WHITE BLOOD COUNT 7.1 K/mm3 (4.0-10.0)
[2019-07-19 09:36] LABS: BLOOD UREA NITROGEN 57.3 mg/dL (7-18); CALCIUM 8.6 mg/dL (8.5-10.1); CREATININE 2.5 mg/dL (0.55-1.3); POTASSIUM 5.3 mmol/L (3.5-5.1)
[2019-07-19] MEDS ORDERED: PATIENT'S OWN MEDICATION (NON-FORMULARY) (Tizanidine Hcl [Tizanidine Hcl] 2 MG) PO SCH (10:00)
[2019-07-19] MEDS: CLOPIDOGREL BISULFATE 75 MG TABLET (FP) PO SCH (10:10)
[2019-07-19] MEDS: ASPIRIN 81 MG CHEWABLE TABLETS PO SCH (10:10)
[2019-07-19] MEDS: TIZANIDINE HCL 2 MG TABLET PO SCH (10:11)
[2019-07-19] MEDS: amLODIPine BESYLATE 10 MG TABLET (FP) PO SCH (10:11)
[2019-07-19] MEDS: HEPARIN NA (PORCINE) 5,000 UNITS/ML 1ML VIAL SQ SCH ×2 (10:11→22:11)
[2019-07-19] MEDS: PANTOPRAZOLE 40 MG TABLET PO SCH (10:11)
[2019-07-19] MEDS: CARVEDILOL 3.125 MG TABLET (FP) PO SCH (10:11)
--- NOTE | 2019-07-19 11:46 | PN ---
Progress Note (short form) - Note Progress Note: She is much improved today ate well no nausea vomiting getting IV fluids denies any fever chills nausea vomiting Vital Signs Period Temp Pulse Resp BP Sys/Mckeon Pulse Ox Last 24 Hr 97.5 F-97.6 F 66-97 17-20 138-150/64-66 95-98 Head no headache no dizziness Ear nose throat no epistaxis Cardiovascular no chest pain Pulmonary no wheezing no coughing GI no abdominal pain Endocrine no history of diabetes hypothyroidism Neuro no history of stroke Dermatology no history of stroke Locomotor no history of joint pain Rest of review of systems are negative Patient is comfortable HEENT normal Neck supple no JVD Lungs clear no wheezing Abdomen nontender no organomegaly bowel sounds normal Extremities no edema no cyanosis normal pulses Neurologically he is alert awake oriented, nonfocal Skin no rash noted CBC, BMP 07/19/19 07:10 07/19/19 07:10 ASSESSMENT/PLAN: 84 yo F w a pmh of HTN, HLD, IDDM, TIA, CAD s/p CABG/PCIs, diastolic CHFpEF, PVD , CKD, OA, and GERD presents to the ER hypotensive after 3 episodes of yellow NBNB vomitus earlier this morning with generalized weakness and abdominal pain worst in the epigastric and LLQ regions. CAT scan of the abdomen is negative for any acute pathology Urinalysis shows no infection or leuk esterase negative Slightly high BUN/creatinine possible dehydration acute on chronic renal insufficiency Start IV fluids half-normal saline at 75 cc an hour Today her BUN and creatinine is coming down Diabetes hypertension coronary artery disease PVD will continue her home medication For GERD will start her on Protonix 40 mg once a day Asked physical therapy For DVT prophylaxis will subcu heparin because high creatinine Lovenox is contraindicated Activity as tolerated and diabetic diet Visit type - Emergency Visit Emergency Visit: Yes ED Registration Date: 07/18/19 Care time: The patient presented to the Emergency Department on the above date and was hospitalized for further evaluation of their emergent condition. - New Patient This patient is new to me today: No - Critical Care Critical Care patient: No - Discharge Referral Referred to [facility] Med P.C.: No
--- NOTE | 2019-07-19 13:21 | CONSULT ---
Consult - text type - Consultation Consultation Note: Renal consult for ULISES Coverage for Dr. Serrato This is a 84 year old woman with history of CAD, CHF with preserved EF, hypertension, IDDM, TIA, CKD who presented from home with complaints of diarrhea x 2 days and noted to have elevated BUn/Cr . Baseline Cr ~1.9-2. She says was was referred to see a ventilation worker but has yet to see them. Denies any cp, sob, WALLIS, confusion, lethargy, N/V, fever, chills. She has slight leg swelling. No skin rash. she is unsure if she recently used Abx. No flank pain. No recent contrast exposure. Denies any NSAID use. PMhx: as above Allergies: NKDA Family hx: NC Social Hx: No T/A/D ROS: as per HPI, all other pertinent ros negative Home Medications Medication Instructions Recorded Clopidogrel Bisulfate [Plavix] 75 mg PO DAILY 02/08/18 Atorvastatin Ca [Lipitor] 80 mg PO HS 05/15/19 Carvedilol 3.125 mg PO DAILY 05/15/19 Amlodipine Besylate 10 mg PO DAILY 05/16/19 Ergocalciferol (Vitamin D2) 1 cap PO WEEKLY 05/16/19 [Vitamin D2] Gabapentin 200 mg PO TID 05/16/19 Tizanidine HCl 2 mg PO DAILY 05/16/19 Amlodipine Besylate [Norvasc -] 10 mg PO DAILY tablet 05/22/19 Aspirin [ASA -] 81 mg PO DAILY tab.chew 05/22/19 Insulin (Levemir) [Levemir Vial] 30 units SQ DAILY@0700 units 05/22/19 Insulin Sliding Scale [Novolog 1 vial SQ TIDAC units 05/22/19 Vial Sliding Scale -] Vital Signs Temperature 97.5 F L 07/18/19 23:36 Pulse Rate 97 H 07/19/19 07:00 Respiratory Rate 20 07/19/19 07:00 Blood Pressure 142/64 07/19/19 07:00 O2 Sat by Pulse Oximetry (%) 96 07/19/19 06:00 Intake & Output 07/16/19 07/17/19 07/18/19 07/19/19 23:59 23:59 23:59 23:59 Intake Total 150 525 Balance 150 525 Weight 84.822 kg 84.878 kg NAD awake and alert neck supple RRR CTA, no rales soft NT/ND trace LE edema no clubbing or cyanosis no bladder distension CBC, BMP 07/19/19 07:10 07/19/19 07:10 Current Medications Amlodipine Besylate (Norvasc -) 10 mg PO DAILY [facility] Last Admin: 07/19/19 10:11 Dose: 10 mg Aspirin (Asa -) 81 mg PO DAILY [facility] Last Admin: 07/19/19 10:10 Dose: 81 mg Atorvastatin Calcium (Lipitor -) 80 mg PO HS [facility] [place] Last Admin: 07/18/19 21:50 Dose: 80 mg Carvedilol (Coreg -) 3.125 mg PO DAILY [facility] [place] Last Admin: 07/19/19 10:11 Dose: 3.125 mg Clopidogrel Bisulfate (Plavix -) 75 mg PO DAILY [facility] Last Admin: 07/19/19 10:10 Dose: 75 mg Ergocalciferol (Drisdol -) unit PO WEEKLY [facility] Gabapentin (Neurontin -) 200 mg PO TID [facility] Last Admin: 07/19/19 06:57 Dose: 200 mg Heparin Sodium (Porcine) (Heparin -) 5,000 unit SQ BID [facility] [place] Last Admin: 07/19/19 10:11 Dose: 5,000 unit Sodium Chloride (1/2 Normal Saline) 1,000 mls @ 75 mls/hr IV ASDIR [facility] [place] Last Admin: 07/18/19 18:50 Dose: 75 mls/hr Insulin Aspart (Novolog Vial Sliding Scale -) 1 vial SQ ACHS [facility]; Protocol Last Admin: 07/19/19 13:19 Dose: 4 units Insulin Detemir (Levemir Vial) 30 units SQ DAILY@0700 [facility] [place] Last Admin: 07/19/19 06:56 Dose: 30 units Pantoprazole Sodium (Protonix -) 40 mg PO DAILY [facility] [place] Last Admin: 07/19/19 10:11 Dose: 40 mg Tizanidine HCl (Tizanidine Hcl) 2 mg PO DAILY [facility] Last Admin: 07/19/19 10:11 Dose: 2 mg 84 year old woman with history of CAD, CHF with preserved EF, hypertension, IDDM, TIA, CKD who presented from home with complaints of diarrhea x 2 days and noted to have elevated BUn/Cr . 1. ULISES on CKD 2. CKD stage 3 3. Renal Cyst 4. Diarrhea r/o colitis 5. Hyperkalemia Renal function essentially unchanged from admission Check urine studies for FeNa, UPCR, Eosinophils CT of the Abd showed a renal cyst but no evidence of obstruction continue gentle IVF with hypotonic fluids with close monitoring of volume status Low potassium diet if K > 5.5 anaya Frances Thank you Chaka Hussein DO
--- NOTE | 2019-07-19 13:31 | EKG ---
Test Reason : Blood Pressure : / mmHG Vent. Rate : 062 BPM Atrial Rate : 062 BPM P-R Int : 188 ms QRS Dur : 086 ms QT Int : 440 ms P-R-T Axes : 019 026 127 degrees QTc Int : 446 ms NORMAL SINUS RHYTHM CANNOT RULE OUT ANTEROSEPTAL INFARCT , AGE UNDETERMINED NONSPECIFIC T WAVE ABNORMALITY ABNORMAL ECG Confirmed by LEVI BOWLES MD ([id number]) on 07/19/2019 1:30:36 PM Referred By: Confirmed By:LEVI BOWLES MD
--- NOTE | 2019-07-19 13:37 | EKG ---
Test Reason : Blood Pressure : / mmHG Vent. Rate : 066 BPM Atrial Rate : 066 BPM P-R Int : 184 ms QRS Dur : 088 ms QT Int : 418 ms P-R-T Axes : 040 002 097 degrees QTc Int : 438 ms NORMAL SINUS RHYTHM INFERIOR INFARCT , AGE UNDETERMINED POOR R WAVE PROGRESSION CANNOT RULE OUT ANTERIOR INFARCT , AGE UNDETERMINED ABNORMAL ECG Confirmed by LEVI BOWLES MD ([id number]) on 07/19/2019 1:37:02 PM Referred By: Confirmed By:LEVI BOWLES MD
[2019-07-19] MEDS: ATORVASTATIN CA 80 MG TABLET (FP) PO SCH (22:11)
[2019-07-20] MEDS ORDERED: INSULIN (NOVOLOG) ASPART 100 UNITS/ML 10ML VIAL ONE ×2 (06:43→20:48)
[2019-07-20] MEDS: INSULIN SLIDING SCALE (NOVOLOG) 1 VIAL SQ SCH ×4 (06:47→22:05)
[2019-07-20] MEDS: INSULIN (LEVEMIR) 100 UNITS/ML UNITS SQ SCH (06:47)
[2019-07-20] MEDS: GABAPENTIN 100 MG CAPSULE PO SCH ×3 (06:50→22:01)
[2019-07-20 08:42] LABS: HEMATOCRIT 32.1 % (32.4-45.2); HEMOGLOBIN 10.6 GM/dL (10.7-15.3); MCH 29.5 pg (25.7-33.7); MCHC 33.1 g/dl (32.0-36.0); MEAN CELL VOLUME 89.1 fl (80-96); MEAN PLT VOLUME 10.7 fl (7.5-11.1); PLATELET COUNT 279 K/MM3 (134-434); RDW 15.9 % (11.6-15.6)
[2019-07-20 09:01] LABS: ALBUMIN 2.7 g/dl (3.4-5.0); BILIRUBIN,TOTAL 0.5 mg/dL (0.2-1); BLOOD UREA NITROGEN 51.6 mg/dL (7-18); CREATININE 2.8 mg/dL (0.55-1.3); MAGNESIUM 2.1 mg/dL (1.8-2.4); PHOSPHOROUS 4.7 mg/dL (2.5-4.9); TOT PROT 5.8 g/dl (6.4-8.2)
[2019-07-20] MEDS: CLOPIDOGREL BISULFATE 75 MG TABLET (FP) PO SCH (09:10)
[2019-07-20] MEDS: PANTOPRAZOLE 40 MG TABLET PO SCH (09:11)
[2019-07-20] MEDS: CARVEDILOL 3.125 MG TABLET (FP) PO SCH (09:11)
[2019-07-20] MEDS: amLODIPine BESYLATE 10 MG TABLET (FP) PO SCH (09:11)
[2019-07-20] MEDS: HEPARIN NA (PORCINE) 5,000 UNITS/ML 1ML VIAL SQ SCH ×2 (09:11→22:01)
[2019-07-20] MEDS: ASPIRIN 81 MG CHEWABLE TABLETS PO SCH (09:11)
[2019-07-20] MEDS: TIZANIDINE HCL 2 MG TABLET PO SCH (09:12)
--- NOTE | 2019-07-20 10:37 | PN ---
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 Vital Signs Period Temp Pulse Resp BP Sys/Mckeon Pulse Ox Last 24 Hr 97.8 F-98.4 F 57-67 20-20 120-146/48-64 96 Review of system Ear nose throat no epistaxis Cardiovascular no chest pain Pulmonary no wheezing no coughing GI no abdominal pain Endocrine no history of diabetes hypothyroidism Neuro no history of stroke Dermatology no history of stroke Locomotor no history of joint pain Rest of review of systems are negative Patient is comfortable HEENT normal Neck supple no JVD Lungs clear no wheezing Abdomen nontender no organomegaly bowel sounds normal Extremities no edema no cyanosis normal pulses Neurologically he is alert awake oriented, nonfocal Skin no rash noted CBC, BMP 07/20/19 07:35 07/20/19 07:35 ASSESSMENT/PLAN: 84 yo F w a pmh of HTN, HLD, IDDM, TIA, CAD s/p CABG/PCIs, diastolic CHFpEF, PVD , CKD, OA, and GERD presents to the ER hypotensive after 3 episodes of yellow NBNB vomitus earlier this morning with generalized weakness and abdominal pain worst in the epigastric and LLQ regions. CAT scan of the abdomen is negative for any acute pathology Urinalysis shows no infection or leuk esterase negative Her urine is growing something in there but colony count is not available and also sensitivity not available but she is afebrile there is no need for starting any empiric antibiotics.Will follow the result tomorrow Slightly high BUN/creatinine possible dehydration acute on chronic renal insufficiency Start IV fluids half-normal saline at 75 cc an hour Today her BUN and creatinine is Essentially unchanged Diabetes hypertension coronary artery disease PVD will continue her home medication For GERD will start her on Protonix 40 mg once a day Asked physical therapy For DVT prophylaxis will subcu heparin because high creatinine Lovenox is contraindicated Activity as tolerated and diabetic diet Visit type - Emergency Visit Emergency Visit: Yes ED Registration Date: 07/18/19 Care time: The patient presented to the Emergency Department on the above date and was hospitalized for further evaluation of their emergent condition. - New Patient This patient is new to me today: No - Critical Care Critical Care patient: No - Discharge Referral Referred to [facility] Med P.C.: No
--- NOTE | 2019-07-20 11:38 | PN ---
Progress Note (short form) - Note Progress Note: Renal follow up for ULISES Seen and examined at the bedside awake and alert denies any sob, cp, fever or chills making urine no abd pain or diarrhea Vital Signs Temperature 97.9 F 07/20/19 06:00 Pulse Rate 57 L 07/20/19 06:00 Respiratory Rate 20 07/20/19 06:00 Blood Pressure 146/55 L 07/20/19 06:00 O2 Sat by Pulse Oximetry (%) 96 07/19/19 14:00 Intake & Output 07/17/19 07/18/19 07/19/19 07/20/19 23:59 23:59 23:59 23:59 Intake Total 150 2700 200 Balance 150 2700 200 Weight 84.822 kg 84.878 kg 84.595 kg NAD awake and alert neck supple RRR CTA, no rales soft NT/ND trace LE edema no clubbing or cyanosis no bladder distension CBC, BMP 07/20/19 07:35 07/20/19 07:35 Current Medications Amlodipine Besylate (Norvasc -) 10 mg PO DAILY [facility] Last Admin: 07/20/19 09:11 Dose: 10 mg Aspirin (Asa -) 81 mg PO DAILY [facility] Last Admin: 07/20/19 09:11 Dose: 81 mg Atorvastatin Calcium (Lipitor -) 80 mg PO HS [facility] Last Admin: 07/19/19 22:11 Dose: 80 mg Carvedilol (Coreg -) 3.125 mg PO DAILY [facility] Last Admin: 07/20/19 09:11 Dose: 3.125 mg Clopidogrel Bisulfate (Plavix -) 75 mg PO DAILY [facility] Last Admin: 07/20/19 09:10 Dose: 75 mg Ergocalciferol (Drisdol -) 50,000 unit PO Fr@1000 [facility] Gabapentin (Neurontin -) 200 mg PO TID [facility] Last Admin: 07/20/19 06:50 Dose: 200 mg Heparin Sodium (Porcine) (Heparin -) 5,000 unit SQ BID [facility] Last Admin: 07/20/19 09:11 Dose: 5,000 unit Sodium Chloride (1/2 Normal Saline) 1,000 mls @ 75 mls/hr IV ASDIR [facility] Last Admin: 07/18/19 18:50 Dose: 75 mls/hr Insulin Aspart (Novolog Vial Sliding Scale -) 1 vial SQ ACHS [facility]; Protocol Last Admin: 07/20/19 06:47 Dose: 4 units Insulin Detemir (Levemir Vial) 30 units SQ DAILY@0700 [facility] Last Admin: 07/20/19 06:47 Dose: 30 units Pantoprazole Sodium (Protonix -) 40 mg PO DAILY [facility] Last Admin: 07/20/19 09:11 Dose: 40 mg Tizanidine HCl (Tizanidine Hcl) 2 mg PO DAILY [facility] Last Admin: 07/20/19 09:12 Dose: 2 mg 84 year old woman with history of CAD, CHF with preserved EF, hypertension, IDDM, TIA, CKD who presented from home with complaints of diarrhea x 2 days and noted to have elevated BUn/Cr . 1. ULISES on CKD 2. CKD stage 3 3. Renal Cyst 4. Diarrhea r/o colitis 5. 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
[2019-07-20] MEDS ORDERED: SODIUM CHLORIDE 1,000 ML IV SCH (11:45)
[2019-07-20] MEDS: ATORVASTATIN CA 80 MG TABLET (FP) PO SCH (22:01)
[2019-07-21] MEDS: INSULIN SLIDING SCALE (NOVOLOG) 1 VIAL SQ SCH ×4 (06:23→21:16)
[2019-07-21] MEDS: INSULIN (LEVEMIR) 100 UNITS/ML UNITS SQ SCH (06:24)
[2019-07-21] MEDS: GABAPENTIN 100 MG CAPSULE PO SCH ×3 (06:24→21:14)
[2019-07-21 07:05] LABS: BASO % 0.5 % (0-2.0); HEMATOCRIT 32.7 % (32.4-45.2); HEMOGLOBIN 10.8 GM/dL (10.7-15.3); MCH 29.8 pg (25.7-33.7); MCHC 33.1 g/dl (32.0-36.0); MEAN CELL VOLUME 89.8 fl (80-96); MEAN PLT VOLUME 10.7 fl (7.5-11.1); MONO % 5.1 % (3.8-10.2); NEUT % 61.4 % (42.8-82.8); PLATELET COUNT 283 K/MM3 (134-434); RBC 3.64 M/mm3 (3.60-5.2); RDW 15.7 % (11.6-15.6); WHITE BLOOD COUNT 9.5 K/mm3 (4.0-10.0)
--- NOTE | 2019-07-21 07:23 | PN ---
Physical Exam: SUBJECTIVE: Patient seen and examined at bed side , had no complains OBJECTIVE: Vital Signs Period Temp Pulse Resp BP Sys/Mckeon Pulse Ox Last 24 Hr 97.8 F-98.2 F 58-65 17-20 130-155/54-62 92-99 GENERAL: AAOx3 in NAD HEAD: NC/AT EYES: EOMI, Conjunctiva clear, sclera anicteric ENT: moist mucous membrane NECK: Supple, no JVD LUNGS: CTA B/L, no crackles no wheezing no accessory muscle use. HEART: IRR IRR , , normal s1, s2, 2/6 systolic murmur RUSB and LLSB ABDOMEN:Obese Soft, ND, NT, +BS 4 Q, no CVA Tenderness LOWER EXTREMITIES: no edema, +2DP pulse, NEUROLOGICAL: No focal deficit. Normal speech. gait not observed. PSYCHIATRIC: Cooperative. Good eye contact. Appropriate mood and affect. SKIN: Warm, dry, Laboratory Results - last 24 hr 07/18/19 07/20/19 07/20/19 18:30 07:35 07:35 WBC 9.0 RBC 3.60 Hgb 10.6 L Hct 32.1 L MCV 89.1 MCH 29.5 MCHC 33.1 RDW 15.9 H Plt Count 279 MPV 10.7 Absolute Neuts (auto) Neutrophils % Lymphocytes % Monocytes % Eosinophils % Basophils % Nucleated RBC % Sodium 139 Potassium 5.0 Chloride 110 H Carbon Dioxide 22 Anion Gap 7 L BUN 51.6 H Creatinine 2.8 H Est GFR (CKD-EPI)AfAm 17.25 Est GFR (CKD-EPI)NonAf 14.89 POC Glucometer Random Glucose 269 H Calcium 8.0 L Phosphorus 4.7 Magnesium 2.1 Total Bilirubin 0.5 AST 14 L ALT 23 Alkaline Phosphatase 87 Total Protein 5.8 L Albumin 2.7 L Stool Occult Blood Cancelled 07/20/19 07/20/19 07/20/19 11:52 16:40 22:04 WBC RBC Hgb Hct MCV MCH MCHC RDW Plt Count MPV Absolute Neuts (auto) Neutrophils % Lymphocytes % Monocytes % Eosinophils % Basophils % Nucleated RBC % Sodium Potassium Chloride Carbon Dioxide Anion Gap BUN Creatinine Est GFR (CKD-EPI)AfAm Est GFR (CKD-EPI)NonAf POC Glucometer 311 224 258 Random Glucose Calcium Phosphorus Magnesium Total Bilirubin AST ALT Alkaline Phosphatase Total Protein Albumin Stool Occult Blood 07/21/19 07/21/19 06:07 06:19 WBC 9.5 RBC 3.64 Hgb 10.8 Hct 32.7 MCV 89.8 MCH 29.8 MCHC 33.1 RDW 15.7 H Plt Count 283 MPV 10.7 Absolute Neuts (auto) 5.8 Neutrophils % 61.4 D Lymphocytes % 29.0 D Monocytes % 5.1 Eosinophils % 4.0 Basophils % 0.5 Nucleated RBC % 0 Sodium Potassium Chloride Carbon Dioxide Anion Gap BUN Creatinine Est GFR (CKD-EPI)AfAm Est GFR (CKD-EPI)NonAf POC Glucometer 227 Random Glucose Calcium Phosphorus Magnesium Total Bilirubin AST ALT Alkaline Phosphatase Total Protein Albumin Stool Occult Blood Active Medications Generic Name Dose Route Start Last Admin Trade Name Freq PRN Reason Stop Dose Admin Amlodipine Besylate 10 mg 07/19/19 10:00 07/20/19 09:11 Norvasc - PO 10 mg DAILY JASMYN Administration Aspirin 81 mg 07/19/19 10:00 07/20/19 09:11 Asa - PO 81 mg DAILY JASMYN Administration Atorvastatin Calcium 80 mg 07/18/19 22:00 07/20/19 22:01 Lipitor - PO 80 mg HS JASMYN Administration Carvedilol 3.125 mg 07/19/19 10:00 07/20/19 09:11 Coreg - PO 3.125 mg DAILY JASMYN Administration Clopidogrel Bisulfate 75 mg 07/19/19 10:00 07/20/19 09:10 Plavix - PO 75 mg DAILY JASMYN Administration Ergocalciferol 50,000 unit 07/25/19 10:00 Drisdol - PO Fr@1000 JASMYN Gabapentin 200 mg 07/18/19 22:00 07/21/19 06:24 Neurontin - PO 200 mg TID JASMYN Administration Heparin Sodium (Porcine) 5,000 unit 07/18/19 22:00 07/20/19 22:01 Heparin - SQ 5,000 unit BID JASMYN Administration Sodium Chloride 1,000 mls @ 75 mls/hr 07/20/19 11:45 07/20/19 11:55 Normal Saline - IV 07/21/19 11:44 75 mls/hr ASDIR JASMYN Administration Insulin Aspart 1 vial 07/18/19 22:00 07/21/19 06:23 Novolog Vial Sliding Scale - SQ 2 units ACHS JASMYN Administration Protocol Insulin Detemir 30 units 07/19/19 07:00 07/21/19 06:24 Levemir Vial SQ 30 units DAILY@0700 JASMYN Administration Pantoprazole Sodium 40 mg 07/18/19 18:15 07/20/19 09:11 Protonix - PO 40 mg DAILY JASMYN Administration Tizanidine HCl 2 mg 07/19/19 10:00 07/20/19 09:12 Tizanidine Hcl PO 2 mg DAILY JASMYN Administration CBC, BMP 07/21/19 06:07 07/21/19 06:07 ASSESSMENT/PLAN: 84 yo F w a pmh of HTN, HLD, IDDM, TIA, CAD s/p CABG/PCIs, diastolic CHFpEF, PVD, CKD, OA, and GERD presents to the ER hypotensive after 3 episodes of yellow NBNB vomitus earlier this morning with generalized weakness and abdominal pain worst in the epigastric and LLQ regions. # ULISES on CKD Stage 3 improved with IV fluids will repeat lab in AM Avoid nephrotoxic agenets , Nephrology consulted , follow SPEP , GAYE # Renal Cyst repeat images as out pt # Abdominal pain resolved , CT A/P negative for acute pathology # Asymptomatic bacteruria * UA negative , urine cx positive for Echoli and lactose ferminiting negative bacilli , nando ccolonized will monitor off abx # CAD S/P CABG # D CHF cont asa plavix and lipitor and coreg 3.125 po daily # HTN on Amlodipin hold for systolic below 100 # cont home meds Janeth pentin and VIT D and Tizanidine # DM increase Levemir to 34 SQ daily and ISS , diabetic diet # FEN * Monitor off fluids for now * Monitor lytes * Diabetic low sodium diet # DVT proph Hep SQ TID #GI Proph On PPI 40 Daily # Full code Visit type - Emergency Visit Emergency Visit: Yes ED Registration Date: 07/18/19 Care time: The patient presented to the Emergency Department on the above date and was hospitalized for further evaluation of their emergent condition. - New Patient This patient is new to me today: Yes Date on this admission: 07/21/19 - Critical Care Critical Care patient: No - Discharge Referral Referred to [facility] No ATTENDING PHYSICIAN STATEMENT I saw and evaluated the patient. I reviewed the resident's note and discussed the case with the resident. I agree with the resident's findings and plan as documented. SUBJECTIVE: OBJECTIVE: ASSESSMENT AND PLAN:
[2019-07-21 07:41] LABS: ALBUMIN 2.6 g/dl (3.4-5.0); BILIRUBIN,TOTAL 0.4 mg/dL (0.2-1); BLOOD UREA NITROGEN 48.7 mg/dL (7-18); CALCIUM 8.1 mg/dL (8.5-10.1); CREATININE 2.5 mg/dL (0.55-1.3); MAGNESIUM 2.2 mg/dL (1.8-2.4); PHOSPHOROUS 4.6 mg/dL (2.5-4.9); TOT PROT 5.6 g/dl (6.4-8.2)
[2019-07-21] MEDS ORDERED: PT OWN MED DRAWER 7, Y5N ONE (10:55)
[2019-07-21] MEDS: TIZANIDINE HCL 2 MG TABLET PO SCH (11:00)
[2019-07-21] MEDS: HEPARIN NA (PORCINE) 5,000 UNITS/ML 1ML VIAL SQ SCH ×2 (11:00→21:14)
[2019-07-21] MEDS: PANTOPRAZOLE 40 MG TABLET PO SCH (11:00)
[2019-07-21] MEDS: CLOPIDOGREL BISULFATE 75 MG TABLET (FP) PO SCH (11:00)
[2019-07-21] MEDS: CARVEDILOL 3.125 MG TABLET (FP) PO SCH (11:00)
[2019-07-21] MEDS: ASPIRIN 81 MG CHEWABLE TABLETS PO SCH (11:00)
[2019-07-21] MEDS: amLODIPine BESYLATE 10 MG TABLET (FP) PO SCH (11:00)
--- NOTE | 2019-07-21 11:20 | PN ---
Teaching Attending Note Name of Resident: Marshall Vieira ATTENDING PHYSICIAN STATEMENT I saw and evaluated the patient. I reviewed the resident's note and discussed the case with the resident. I agree with the resident's findings and plan as documented. SUBJECTIVE: Patient complains of pain in both knees. OBJECTIVE: Vital Signs Period Temp Pulse Resp BP Sys/Mckeon Pulse Ox Last 24 Hr 97.8 F-98.2 F 58-65 18-20 135-155/57-62 92 HEART: S1S2, RRR LUNGS: Clear ABDOMEN: Obese, soft, non-tender, non-distended, normal BS EXTREMITIES: No edema ASSESSMENT AND PLAN: This is an 84 year old woman with a history of HTN, hyperlipidemia, CAD, CABG, PCI, chronic diastolic heart failure, type 2 DM, TIA, PAD, stage 4 CKD, OA, GERD who presented to the ED with weakness, abdominal pain and vomiting. 1. Abdominal pain with nausea/vomiting - Improved 2. Acute kidney injury on stage 4 CKD - Improving with IV fluid - GAYE, SPEP pending 3. Hyperkalemia - Improved 4. CAD, history of CABG, PCI - Continue aspirin, Plavix, Coreg, Lipitor 5. HTN - Continue Norvasc, Coreg 6. Hyperlipidemia - Continue Lipitor 7. Chronic diastolic heart failure - Stable - No evidence of fluid overload - monitor while on IV fluid 8. Type 2 DM - Continue Levemir, Novolog sliding scale 9. PAD - Continue aspirin, Plavix 10. History of TIA - Continue aspirin, Lipitor 11. GERD - Continue Protonix 12. OA with bilateral knee pain - PT evaluation - May need short term rehab at discharge
[2019-07-21] MEDS ORDERED: ACETAMINOPHEN 1000 MG/100 ML VIAL (NON FORMULARY) IVPB PRN (14:28)
--- NOTE | 2019-07-21 15:01 | PN ---
Progress Note, Physician History of Present Illness: Pt seen and examined at bedside. She is awake and appears comfortable. She is tolerating diet. She denies shortness of breath. - Current Medication List Current Medications: Active Medications Acetaminophen (Ofirmev Injection -) 1,000 mg IVPB Q6H PRN PRN Reason: PAIN Stop: 07/22/19 14:28 Amlodipine Besylate (Norvasc -) 10 mg PO DAILY [facility] Last Admin: 07/21/19 11:00 Dose: 10 mg Aspirin (Asa -) 81 mg PO DAILY [facility] Last Admin: 07/21/19 11:00 Dose: 81 mg Atorvastatin Calcium (Lipitor -) 80 mg PO HS [facility] Last Admin: 07/20/19 22:01 Dose: 80 mg Carvedilol (Coreg -) 3.125 mg PO DAILY [facility] Last Admin: 07/21/19 11:00 Dose: 3.125 mg Clopidogrel Bisulfate (Plavix -) 75 mg PO DAILY [facility] Last Admin: 07/21/19 11:00 Dose: 75 mg Ergocalciferol (Drisdol -) 50,000 unit PO Fr@1000 [facility] Gabapentin (Neurontin -) 200 mg PO TID [facility] Last Admin: 07/21/19 14:15 Dose: 200 mg Heparin Sodium (Porcine) (Heparin -) 5,000 unit SQ BID [facility] Last Admin: 07/21/19 11:00 Dose: 5,000 unit Insulin Aspart (Novolog Vial Sliding Scale -) 1 vial SQ [facility]; Protocol Last Admin: 07/21/19 12:09 Dose: 8 units Insulin Detemir (Levemir Vial) 30 units SQ DAILY@0700 [facility] Last Admin: 07/21/19 06:24 Dose: 30 units Pantoprazole Sodium (Protonix -) 40 mg PO DAILY [facility] Last Admin: 07/21/19 11:00 Dose: 40 mg Tizanidine HCl (Tizanidine Hcl) 2 mg PO DAILY [facility] Last Admin: 07/21/19 11:00 Dose: 2 mg - Objective Vital Signs: Vital Signs Temperature 98.2 F 07/21/19 10:00 Pulse Rate 63 07/21/19 10:00 Respiratory Rate 20 07/21/19 10:00 Blood Pressure 132/73 07/21/19 10:00 O2 Sat by Pulse Oximetry (%) 95 07/21/19 09:00 Constitutional: Yes: Calm Eyes: Yes: Conjunctiva Clear HENT: Yes: Atraumatic Neck: Yes: Supple Cardiovascular: Yes: S1, S2 Respiratory: Yes: CTA Bilaterally Gastrointestinal: Yes: Soft, Abdomen, Obese Musculoskeletal: Yes: WNL Edema: No Integumentary: Yes: WNL Neurological: Yes: Oriented Psychiatric: Yes: Oriented Labs: CBC, BMP 07/21/19 06:07 07/21/19 06:07 INR, PTT INR 0.89 (0.83-1.09) 07/18/19 10:30 Problem List - Problems (1) [id number] kidney injury Code(s): N17.9 - ACUTE KIDNEY FAILURE, UNSPECIFIED; N18.9 - CHRONIC KIDNEY DISEASE, UNSPECIFIED Qualifiers: Acute renal failure type: unspecified Chronic kidney disease stage: unspecified stage Qualified Code(s): N17.9 - Acute kidney failure, unspecified ; N18.9 - Chronic kidney disease, unspecified Assessment/Plan Current Medications Generic Name Dose Route Start Last Admin Trade Name Freq PRN Reason Stop Dose Admin Acetaminophen 1,000 mg 07/21/19 14:28 Ofirmev Injection - IVPB 07/22/19 14:28 Q6H PRN PAIN Amlodipine Besylate 10 mg 07/19/19 10:00 07/21/19 11:00 Norvasc - PO 10 mg DAILY JASMYN Administration Aspirin 81 mg 07/19/19 10:00 07/21/19 11:00 Asa - PO 81 mg DAILY JASMYN Administration Atorvastatin Calcium 80 mg 07/18/19 22:00 07/20/19 22:01 Lipitor - PO 80 mg HS JASMYN Administration Carvedilol 3.125 mg 07/19/19 10:00 07/21/19 11:00 Coreg - PO 3.125 mg DAILY JASMYN Administration Clopidogrel Bisulfate 75 mg 07/19/19 10:00 07/21/19 11:00 Plavix - PO 75 mg DAILY JASMYN Administration Ergocalciferol 50,000 unit 07/25/19 10:00 Drisdol - PO Fr@1000 JASMYN Gabapentin 200 mg 07/18/19 22:00 07/21/19 14:15 Neurontin - PO 200 mg TID JASMYN Administration Heparin Sodium (Porcine) 5,000 unit 07/18/19 22:00 07/21/19 11:00 Heparin - SQ 5,000 unit BID JASMYN Administration Insulin Aspart 1 vial 07/18/19 22:00 07/21/19 12:09 Novolog Vial Sliding Scale - SQ 8 units ACHS JASMYN Administration Protocol Insulin Detemir 30 units 07/19/19 07:00 07/21/19 06:24 Levemir Vial SQ 30 units DAILY@0700 JASMYN Administration Pantoprazole Sodium 40 mg 07/18/19 18:15 07/21/19 11:00 Protonix - PO 40 mg DAILY JASMYN Administration Tizanidine HCl 2 mg 07/19/19 10:00 07/21/19 11:00 Tizanidine Hcl PO 2 mg DAILY JASMYN Administration 1. ULISES on CKD 2. CKD stage 3 3. Renal Cyst 4. Diarrhea r/o colitis 5. 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
[2019-07-21] MEDS ORDERED: INSULIN (NOVOLOG) ASPART 100 UNITS/ML 10ML VIAL ONE (20:48)
[2019-07-21] MEDS ORDERED: INSULIN (LEVEMIR) 100 UNITS/ML UNITS SQ ONE (20:48)
[2019-07-21] MEDS: ATORVASTATIN CA 80 MG TABLET (FP) PO SCH (21:15)
[2019-07-21] MEDS: ACETAMINOPHEN 325 MG TABLET (FP) PO PRN (21:34)
[2019-07-22] MEDS: HEPARIN NA (PORCINE) 5,000 UNITS/ML 1ML VIAL SQ SCH ×3 (06:12→21:55)
[2019-07-22] MEDS: GABAPENTIN 100 MG CAPSULE PO SCH ×3 (06:12→21:54)
[2019-07-22] MEDS: INSULIN SLIDING SCALE (NOVOLOG) 1 VIAL SQ SCH ×4 (06:12→21:59)
[2019-07-22] MEDS: INSULIN (LEVEMIR) 100 UNITS/ML UNITS SQ SCH (06:12)
--- NOTE | 2019-07-22 06:15 | PN ---
Physical Exam: SUBJECTIVE: Patient seen and examined had no complains repeat echo for possible worsening CHF , given lasix 20 once will re assess daily resume crestor 40 HS OBJECTIVE: Vital Signs Period Temp Pulse Resp BP Sys/Mckeon Pulse Ox Last 24 Hr 97.3 F-99 F 56-68 18-20 104-156/38-73 95-95 GENERAL: AAOx3 in NAD HEAD: NC/AT EYES: EOMI, Conjunctiva clear, sclera anicteric ENT: moist mucous membrane NECK: Supple, no JVD LUNGS: CTA B/L, no crackles no wheezing no accessory muscle use. HEART: IRR IRR , , normal s1, s2, 2/6 systolic murmur RUSB and LLSB ABDOMEN:Obese Soft, ND, NT, +BS 4 Q, no CVA Tenderness LOWER EXTREMITIES: no edema, +2DP pulse, NEUROLOGICAL: No focal deficit. Normal speech. gait not observed. PSYCHIATRIC: Cooperative. Good eye contact. Appropriate mood and affect. SKIN: Warm, dry, Laboratory Results - last 24 hr 07/21/19 07/21/19 07/21/19 06:07 06:07 06:19 WBC 9.5 RBC 3.64 Hgb 10.8 Hct 32.7 MCV 89.8 MCH 29.8 MCHC 33.1 RDW 15.7 H Plt Count 283 MPV 10.7 Absolute Neuts (auto) 5.8 Neutrophils % 61.4 D Lymphocytes % 29.0 D Monocytes % 5.1 Eosinophils % 4.0 Basophils % 0.5 Nucleated RBC % 0 Sodium 142 Potassium 5.0 Chloride 114 H Carbon Dioxide 21 Anion Gap 8 BUN 48.7 H Creatinine 2.5 H Est GFR (CKD-EPI)AfAm 19.79 Est GFR (CKD-EPI)NonAf 17.07 POC Glucometer 227 Random Glucose 232 H Calcium 8.1 L Phosphorus 4.6 Magnesium 2.2 Total Bilirubin 0.4 AST 12 L ALT 18 Alkaline Phosphatase 80 Total Protein 5.6 L Albumin 2.6 L 07/21/19 07/21/19 07/21/19 12:08 17:15 20:40 WBC RBC Hgb Hct MCV MCH MCHC RDW Plt Count MPV Absolute Neuts (auto) Neutrophils % Lymphocytes % Monocytes % Eosinophils % Basophils % Nucleated RBC % Sodium Potassium Chloride Carbon Dioxide Anion Gap BUN Creatinine Est GFR (CKD-EPI)AfAm Est GFR (CKD-EPI)NonAf POC Glucometer 359 290 279 Random Glucose Calcium Phosphorus Magnesium Total Bilirubin AST ALT Alkaline Phosphatase Total Protein Albumin 07/22/19 06:05 WBC RBC Hgb Hct MCV MCH MCHC RDW Plt Count MPV Absolute Neuts (auto) Neutrophils % Lymphocytes % Monocytes % Eosinophils % Basophils % Nucleated RBC % Sodium Potassium Chloride Carbon Dioxide Anion Gap BUN Creatinine Est GFR (CKD-EPI)AfAm Est GFR (CKD-EPI)NonAf POC Glucometer 199 Random Glucose Calcium Phosphorus Magnesium Total Bilirubin AST ALT Alkaline Phosphatase Total Protein Albumin Active Medications Generic Name Dose Route Start Last Admin Trade Name Freq PRN Reason Stop Dose Admin Acetaminophen 650 mg 07/21/19 15:12 07/21/19 21:34 Tylenol - PO 650 mg Q6H PRN Administration PAIN LEVEL 1-5 Amlodipine Besylate 10 mg 07/22/19 10:00 Norvasc - PO DAILY JASMYN Aspirin 81 mg 07/19/19 10:00 07/21/19 11:00 Asa - PO 81 mg DAILY JASMYN Administration Atorvastatin Calcium 80 mg 07/18/19 22:00 07/21/19 21:15 Lipitor - PO 80 mg HS JASMYN Administration Carvedilol 3.125 mg 07/19/19 10:00 07/21/19 11:00 Coreg - PO 3.125 mg DAILY JASMYN Administration Clopidogrel Bisulfate 75 mg 07/19/19 10:00 07/21/19 11:00 Plavix - PO 75 mg DAILY JASMYN Administration Ergocalciferol 50,000 unit 07/25/19 10:00 Drisdol - PO Fr@1000 JASMYN Gabapentin 200 mg 07/18/19 22:00 07/22/19 06:12 Neurontin - PO 200 mg TID [facility] Administration Heparin Sodium (Porcine) 5,000 unit 07/21/19 22:00 07/22/19 06:12 Heparin - SQ 5,000 unit TID [facility] Administration Insulin Aspart 1 vial 07/18/19 22:00 07/22/19 06:12 Novolog Vial Sliding Scale - SQ Not Given [facility] Protocol Insulin Detemir 34 units 07/21/19 16:50 07/22/19 06:12 Levemir Vial SQ 34 units DAILY@0700 JASMYN Administration Pantoprazole Sodium 40 mg 07/18/19 18:15 07/21/19 11:00 Protonix - PO 40 mg DAILY JASMYN Administration Tizanidine HCl 2 mg 07/19/19 10:00 07/21/19 11:00 Tizanidine Hcl PO 2 mg DAILY JASMYN Administration ASSESSMENT/PLAN: 84 yo F w a pmh of HTN, HLD, IDDM, TIA, CAD s/p CABG/PCIs, diastolic CHFpEF, PVD , CKD, OA, and GERD presents to the ER hypotensive after 3 episodes of yellow NBNB vomitus earlier this morning with generalized weakness and abdominal pain worst in the epigastric and LLQ regions. # ULISES on CKD Stage 3 improved with IV fluids will repeat lab in AM Avoid nephrotoxic agenets , Nephrology consulted , follow SPEP , GAYE # Renal Cyst repeat images as out pt # Abdominal pain resolved , CT A/P negative for acute pathology # Asymptomatic bacteruria * UA negative , urine cx positive for Echoli and lactose ferminiting negative bacilli , nando ccolonized will monitor off abx # CAD S/P CABG # D CHF cont asa plavix and lipitor and coreg 3.125 po daily # HTN on Amlodipin hold for systolic below 100 # cont home meds Janeth pentin and VIT D and Tizanidine # DM increase Levemir to 34 SQ daily and ISS , diabetic diet # FEN * Monitor off fluids for now * Monitor lytes * Diabetic low sodium diet # DVT proph Hep SQ TID #GI Proph On PPI 40 Daily # Full code Visit type - Emergency Visit Emergency Visit: Yes ED Registration Date: 07/18/19 Care time: The patient presented to the Emergency Department on the above date and was hospitalized for further evaluation of their emergent condition. - New Patient This patient is new to me today: No - Critical Care Critical Care patient: No ATTENDING PHYSICIAN STATEMENT I saw and evaluated the patient. I reviewed the resident's note and discussed the case with the resident. I agree with the resident's findings and plan as documented. SUBJECTIVE: OBJECTIVE: ASSESSMENT AND PLAN:
[2019-07-22 08:29] LABS: BASO % 0.5 % (0-2.0); EOS % 4.1 % (0-4.5); HEMATOCRIT 32.2 % (32.4-45.2); HEMOGLOBIN 10.6 GM/dL (10.7-15.3); LYMPH % 38.8 % (8-40); MCH 29.3 pg (25.7-33.7); MCHC 32.8 g/dl (32.0-36.0); MEAN CELL VOLUME 89.2 fl (80-96); MEAN PLT VOLUME 10.5 fl (7.5-11.1); MONO % 6.7 % (3.8-10.2); NEUT % 49.9 % (42.8-82.8); PLATELET COUNT 253 K/MM3 (134-434); RBC 3.62 M/mm3 (3.60-5.2); RDW 15.6 % (11.6-15.6); WHITE BLOOD COUNT 8.1 K/mm3 (4.0-10.0)
[2019-07-22 08:59] LABS: ALBUMIN 2.5 g/dl (3.4-5.0); BILIRUBIN,TOTAL 0.4 mg/dL (0.2-1); BLOOD UREA NITROGEN 45.2 mg/dL (7-18); CALCIUM 8.6 mg/dL (8.5-10.1); CREATININE 2.2 mg/dL (0.55-1.3); POTASSIUM 4.6 mmol/L (3.5-5.1); TOT PROT 5.2 g/dl (6.4-8.2)
[2019-07-22] MEDS ORDERED: PT OWN MED DRAWER 7, Y5N ONE (09:47)
[2019-07-22] MEDS: CARVEDILOL 3.125 MG TABLET (FP) PO SCH (09:59)
[2019-07-22] MEDS: ASPIRIN 81 MG CHEWABLE TABLETS PO SCH (09:59)
[2019-07-22] MEDS: TIZANIDINE HCL 2 MG TABLET PO SCH (10:00)
[2019-07-22] MEDS: PANTOPRAZOLE 40 MG TABLET PO SCH (10:00)
[2019-07-22] MEDS: CLOPIDOGREL BISULFATE 75 MG TABLET (FP) PO SCH (10:00)
[2019-07-22] MEDS: amLODIPine BESYLATE 10 MG TABLET (FP) PO SCH (10:00)
[2019-07-22] MEDS ORDERED: INSULIN (NOVOLOG) ASPART 100 UNITS/ML 10ML VIAL ONE ×3 (11:24→21:34)
[2019-07-22] MEDS ORDERED: FUROSEMIDE 40 MG/4 ML INJECTABLE VIAL IVPUSH ONE (11:44)
--- NOTE | 2019-07-22 14:01 | PN ---
Progress Note (short form) - Note Progress Note: ID consult dictated imp/reccd 84 yo woman admitted from home with vomiting and weakness, acute on chronic kidney injury ct scan abd/pelvis negative, UA negative ct lumbar spine with DJD now eating spaghetti no fevers normal wbc, no abdominal pain renal sono no obstruction asked to see for positive urine culture most c/w asymptomatic bacteriuria no need to treat angely improving contact isolation in the hospital for VRE Problem List - Problems (1) Asymptomatic bacteriuria Code(s): R82.71 - BACTERIURIA (2) CKD (chronic kidney disease) Code(s): N18.9 - CHRONIC KIDNEY DISEASE, UNSPECIFIED Qualifiers: Chronic kidney disease stage: unspecified stage Qualified Code(s): N18.9 - Chronic kidney disease, unspecified (3) VRE (vancomycin resistant enterococcus) culture positive Code(s): Z22.39 - CARRIER OF OTHER SPECIFIED BACTERIAL DISEASES
--- NOTE | 2019-07-22 14:02 | CON.CARD ---
Consult Consult Specialty:: Cardiology Referred by:: Dr. Waters Reason for Consultation:: Evaluation for CHF - History of Present Illness Chief Complaint: Admitted 07/18 nausea and abdominal pain History of Present Illness: 84F CAD s/p CABG 2000, EDD ROSENBERG to LAD and OM1 2011, RPDA stent 2013, diastolic dysfx, TIA, s/p CEA, HTN, HLD, PVD, Mild , DM admitted 07/18 with nausea and abdominal pain. CT A/P with no acute pathology. ROS: Denies CP, SOB beyond baseline, palpitations, edema, PND or orthopnea. Found to have acute on chronic renal failure. Lasix on hold, hydrated. Given one dose of IV Lasix today. - History Source History Provided By: Patient, Medical Record - Past Medical History Cardio/Vascular: Yes: Aortic Stenosis, CAD (s/p PTCI 2011), CHF, HTN, Hyperlipdemia, MS (2010) Pulmonary: Yes: Sleep Apnea Gastrointestinal: Yes: GERD Renal/: Yes: Renal Inusuff Musculoskeletal: Yes: Chronic low back pain, Osteoarthritis (left knee severe), Other (spinal stenosis) Endocrine: Yes: Diabetes Mellitus, Other (Obesity) - Past Surgical History Past Surgical History: Yes: Hysterectomy ((LIZZIE BSO for bleeding fibroids), Oopherectomy - Alcohol/Substance Use Hx Alcohol Use: No History of Substance Use: reports: None - Smoking History Smoking history: Former smoker Have you smoked in the past 12 months: No Aproximately how many cigarettes per day: 0 - Social History ADL: Family Assistance Occupation: , 3 children History of Recent Travel: No Home Medications - Allergies Allergies/Adverse Reactions: Allergies Allergy/AdvReac Type Severity Reaction Status Date / Time codeine [Codeine] Allergy Verified 07/18/19 10:29 orange juice Allergy Verified 07/18/19 10:29 - Home Medications Home Medications: Ambulatory Orders Clopidogrel Bisulfate [Plavix] 75 mg PO DAILY 02/08/18 Atorvastatin Ca [Lipitor] 80 mg PO HS 05/15/19 Carvedilol 3.125 mg PO DAILY 05/15/19 Amlodipine Besylate 10 mg PO DAILY 05/16/19 Ergocalciferol (Vitamin D2) [Vitamin D2] 1 cap PO WEEKLY 05/16/19 Gabapentin 200 mg PO TID 05/16/19 Tizanidine HCl 2 mg PO DAILY 05/16/19 Amlodipine Besylate [Norvasc -] 10 mg PO DAILY tablet 05/22/19 Aspirin [ASA -] 81 mg PO DAILY tab.chew 05/22/19 Insulin (Levemir) [Levemir Vial] 30 units SQ DAILY@0700 units 05/22/19 Insulin Sliding Scale [Novolog Vial Sliding Scale -] 1 vial SQ TIDAC units 07/10 Family Medical History Family History: Unremarkable (not pertinent to this presentation) Review of Systems Findings/Remarks: see HPI - Review of Systems Constitutional: reports: No Symptoms Eyes: reports: No Symptoms HENT: reports: No Symptoms Neck: reports: No Symptoms Cardiovascular: reports: No Symptoms Respiratory: reports: No Symptoms Gastrointestinal: reports: No Symptoms Genitourinary: reports: No Symptoms Breasts: reports: No Symptoms Reported Musculoskeletal: reports: No Symptoms Integumentary: reports: No Symptoms Neurological: reports: No Symptoms Endocrine: reports: No Symptoms Hematology/Lymphatic: reports: No Symptoms Psychiatric: reports: No Symptoms Vital Signs: Vital Signs Temperature 98.6 F 07/22/19 09:57 Pulse Rate 60 07/22/19 09:57 Respiratory Rate 20 07/22/19 09:57 Blood Pressure 156/74 07/22/19 09:57 O2 Sat by Pulse Oximetry (%) 96 07/22/19 09:00 - Other Data Labs, Other Data: CBC, BMP 07/22/19 06:20 07/22/19 06:20 INR, PTT INR 0.89 (0.83-1.09) 07/18/19 10:30 Imaging - Results Chest X-ray: Image Reviewed Cat Scan: Report Reviewed EKG: Image Reviewed Assessment/Plan IMP: Chronic diastolic CHF CAD s/p CABG (ROSENBERG to LAD, SVG to D1 2000; PCI 2013 (patent grafts at that time) History of TIA HTN Acute on chronic renal failure Mild DM REC: 1. Chronic diastolic CHF: - as of office visit 07/15, was off Lasix due to CKD and worsened renal fxn -Since 07/18 (admission), lasix held and hydrated with improvement in creatinine. -Now noted to have weight gain, although remains asx and lungs relatively clear at this time, stable O2 sat -Repeat CXR, daily weights -Given IV Lasix today, would diurese PRN for now 2. CAD: s/p CABG, PCI (last 2013) -Enzymes negative x 2; no anginal sx -Cont Plavix -Resume Crestor 40 -Cont Coreg 3. History of TIA: -Cont statin and Plavix 4. HTN: at goal, < 150/90 -cont coreg. No NOY/ARB due to acute on chronic CKD 5. Acute on chronic renal failure: -as per renal 6. : mild on last study 10/2018. Repeat echo planned 7. DM: as per PMD. LDL goal 70mg/dl
--- NOTE | 2019-07-22 15:19 | CONS ---
DATE OF CONSULTATION: DATE OF DICTATION: 07/22/2019 INFECTIOUS DISEASE CONSULTATION HISTORY OF PRESENT ILLNESS: This is an 84-year-old female. She has a history of CKD. . She came to the ER with several episodes of vomiting at home along with generalized weakness or white count on admission. She had a CAT scan of her abdomen and pelvis that was unremarkable. She had a CAT scan of her back notable for DJD. She was noted to have an elevated creatinine and treated with gentle hydration. I am asked to see her for positive urine culture. She reports that she is now eating well. She had spaghetti today. She had no abdominal pain or chest pain. She still reports weakness and inability to walk. PAST MEDICAL HISTORY: Notable for history of hypertension, hyperlipidemia, diabetes, TIA, CAD. She has a history of congestive heart failure, PVD, CKD, osteoarthritis, and GERD. SURGICAL HISTORY: Notable for CABG. She has also had multiple stents and has a history of peripheral vascular disease. SOCIAL HISTORY: She lives at home with her who also is not doing well medically. They have 24-hour aids at home. There is no history of alcohol, smoking or tobacco history. ALLERGIES: She is allergic to CODEINE and ORANGE JUICE. MEDICATION: Her medications at home include Plavix, Lipitor, Coreg, amlodipine, vitamin D, gabapentin, amlodipine, aspirin, and insulin. REVIEW OF SYSTEMS: As per HPI. PHYSICAL EXAMINATION: General: She is awake and alert. Vital Signs: Temperature is 98.6, pulse is 60, blood pressure is 156/74, respiratory rate is 20. HEENT: Normocephalic. Eyes are anicteric. Neck: Supple. Lungs: Clear to auscultation. Heart: Regular rate and rhythm. Abdomen: Soft, nontender. She has a well-healed sternal scar. She has no suprapubic or CVA tenderness. Extremities: Without edema. LABORATORY: White count is 8, hemoglobin is 10.6, platelets are 253, BUN and creatinine are 45 and 2.2 with normal LFTs. Urinalysis is negative. Leukocyte esterase with 12 white cells. Urine culture is growing both VRE sensitive to ampicillin as well as E. coli. Blood cultures are negative. IMPRESSION: In summary, this is an 84-year-old woman who I am asked to see for positive urine culture. Her symptoms are most consistent with an asymptomatic bacteruria, no need to treat at this time. Her acute kidney injury is improving. Would have her evaluated by physical therapy as well. Contact isolation in the hospital for her vancomycin-resistant Enterobacteriaceae. Please call back if needed. JESSICA LUNA M.D. [id number] MTDD
--- NOTE | 2019-07-22 16:07 | ECHO ---
Name: JERRY AZEVEDO Exam:Adult Echocardiogram Study Date: 07/22/2019 02:36 PM Age: 84 yrs Reason For Study: CHF Height: 59 in Weight: 187 lb BSA: 1.8 m2 MMode/2D Measurements & Calculations IVSd: 1.2 cm Ao root diam: 2.7 cm LVIDd: 3.6 cm LA dimension: 4.1 cm LVIDs: 2.5 cm LVPWd: 1.4 cm LVPWs: 1.5 cm EDV(Teich): 55.0 ml ESV(Teich): 22.0 ml LVOT diam: 2.1 cm LAV (MOD-bp): 71.6 ml RV S Mark: 9.8 cm/sec Doppler Measurements & Calculations MV E max mark: 117.0 cm/sec Ao V2 max: 206.0 cm/sec MV A max mark: 116.9 cm/sec Ao max P.0 mmHg MV E/A: 1.0 Ao V2 mean: 139.9 cm/sec MV dec time: 0.27 sec Ao mean P.1 mmHg Ao V2 VTI: 48.9 cm PASCUAL(V,D): 1.8 cm2 LV V1 max P.8 mmHg PA V2 max: 115.4 cm/sec LV V1 max: 109.6 cm/sec PA max P.3 mmHg Med Peak E' Mark: 4.9 cm/sec Med E/e': 23.9 Lat Peak E' Mark: 5.9 cm/sec Lat E/e': 19.9 Left Ventricle There is mild concentric left ventricular hypertrophy. Left ventricular systolic function is normal. Ejection Fraction = 65%. The transmitral spectral Doppler flow pattern is suggestive of impaired LV relaxation . Right Ventricle The right ventricle is not well visualized. The right ventricular systolic function is grossly normal . Atria The left atrium is mildly dilated. Right atrial size is normal. Mitral Valve There is moderate mitral annular calcification. Calcified mitral apparatus. There is no mitral regurg itation noted. Tricuspid Valve The tricuspid valve is not well visualized. There was insufficient TR detected to calculate RV systol ic pressure. Aortic Valve There is moderate to severe aortic sclerosis.;. Mild valvular aortic stenosis. The calculated aortic valve area using the continuity equation is 1.8 cm2. Peak gradient is 17 mmHg and mean gradient is 9.1 mmHg . Great Vessels The aortic root is normal size. Pericardium/Pleura There is no pericardial effusion. Interpretation Summary There is mild concentric left ventricular hypertrophy. Left ventricular systolic function is normal. Ejection Fraction = 65%. The right ventricle is not well visualized. The right ventricular systolic function is grossly normal . The left atrium is mildly dilated. Right atrial size is normal. There is moderate to severe aortic sclerosis. Mild valvular aortic stenosis. The calculated aortic va lve area using the continuity equation is 1.8 cm2. Peak gradient is 17 mmHg and mean gradient is 9.1 mmHg. There is moderate mitral annular calcification. Calcified mitral apparatus. MD Yaz Arreola 07/22/2019 04:06 PM
--- NOTE | 2019-07-22 19:10 | PN ---
Progress Note, Physician History of Present Illness: Pt seen and examined at bedside. She is out of bed to chair. SHe denies shortness of breath. - Current Medication List Current Medications: Active Medications Acetaminophen (Tylenol -) 650 mg PO Q6H PRN PRN Reason: PAIN LEVEL 1-5 Last Admin: 07/21/19 21:34 Dose: 650 mg Amlodipine Besylate (Norvasc -) 10 mg PO DAILY [facility] [place] Last Admin: 07/22/19 10:00 Dose: 10 mg Aspirin (Asa -) 81 mg PO DAILY [facility] [place] Last Admin: 07/22/19 09:59 Dose: 81 mg Carvedilol (Coreg -) 3.125 mg PO DAILY [facility] [place] Last Admin: 07/22/19 09:59 Dose: 3.125 mg Clopidogrel Bisulfate (Plavix -) 75 mg PO DAILY [facility] Last Admin: 07/22/19 10:00 Dose: 75 mg Ergocalciferol (Drisdol -) 50,000 unit PO Fr@1000 [facility] Gabapentin (Neurontin -) 200 mg PO TID [facility] [place] Last Admin: 07/22/19 13:22 Dose: 200 mg Heparin Sodium (Porcine) (Heparin -) 5,000 unit SQ TID [facility] [place] Last Admin: 07/22/19 13:22 Dose: 5,000 unit Insulin Aspart (Novolog Vial Sliding Scale -) 1 vial SQ [facility]; Protocol Last Admin: 07/22/19 17:37 Dose: 6 units Insulin Detemir (Levemir Vial) 34 units SQ DAILY@0700 [facility] Last Admin: 07/22/19 06:12 Dose: 34 units Pantoprazole Sodium (Protonix -) 40 mg PO DAILY [facility] Last Admin: 07/22/19 10:00 Dose: 40 mg Rosuvastatin Calcium (Crestor -) 40 mg PO [facility] Tizanidine HCl (Tizanidine Hcl) 2 mg PO DAILY [facility] Last Admin: 07/22/19 10:00 Dose: 2 mg - Objective Vital Signs: Vital Signs Temperature 98.0 F 07/22/19 14:00 Pulse Rate 53 L 07/22/19 14:00 Respiratory Rate 20 07/22/19 14:00 Blood Pressure 117/43 L 07/22/19 14:00 O2 Sat by Pulse Oximetry (%) 96 07/22/19 09:00 Constitutional: Yes: Calm Eyes: Yes: Conjunctiva Clear HENT: Yes: Atraumatic Neck: Yes: Supple Cardiovascular: Yes: S1, S2 Respiratory: Yes: CTA Bilaterally Gastrointestinal: Yes: Soft Musculoskeletal: Yes: WNL Edema: No Neurological: Yes: Oriented Psychiatric: Yes: Oriented Labs: CBC, BMP 07/22/19 06:20 07/22/19 06:20 INR, PTT INR 0.89 (0.83-1.09) 07/18/19 10:30 Problem List - Problems (1) [id number] kidney injury Code(s): N17.9 - ACUTE KIDNEY FAILURE, UNSPECIFIED; N18.9 - CHRONIC KIDNEY DISEASE, UNSPECIFIED Qualifiers: Acute renal failure type: unspecified Chronic kidney disease stage: unspecified stage Qualified Code(s): N17.9 - Acute kidney failure, unspecified ; N18.9 - Chronic kidney disease, unspecified Assessment/Plan Current Medications Generic Name Dose Route Start Last Admin Trade Name Freq PRN Reason Stop Dose Admin Acetaminophen 650 mg 07/21/19 15:12 07/21/19 21:34 Tylenol - PO 650 mg Q6H PRN Administration PAIN LEVEL 1-5 Amlodipine Besylate 10 mg 07/22/19 10:00 07/22/19 10:00 Norvasc - PO 10 mg DAILY JASMYN Administration Aspirin 81 mg 07/19/19 10:00 07/22/19 09:59 Asa - PO 81 mg DAILY JASMYN Administration Carvedilol 3.125 mg 07/19/19 10:00 07/22/19 09:59 Coreg - PO 3.125 mg DAILY JASMYN Administration Clopidogrel Bisulfate 75 mg 07/19/19 10:00 07/22/19 10:00 Plavix - PO 75 mg DAILY JASMYN Administration Ergocalciferol 50,000 unit 07/25/19 10:00 Drisdol - PO Fr@1000 JASMYN Gabapentin 200 mg 07/18/19 22:00 07/22/19 13:22 Neurontin - PO 200 mg TID JASMYN Administration Heparin Sodium (Porcine) 5,000 unit 07/21/19 22:00 07/22/19 13:22 Heparin - SQ 5,000 unit TID JASMYN Administration Insulin Aspart 1 vial 07/18/19 22:00 07/22/19 17:37 Novolog Vial Sliding Scale - SQ 6 units ACHS JASMYN Administration Protocol Insulin Detemir 34 units 07/21/19 16:50 07/22/19 06:12 Levemir Vial SQ 34 units DAILY@0700 JASMYN Administration Pantoprazole Sodium 40 mg 07/18/19 18:15 07/22/19 10:00 Protonix - PO 40 mg DAILY JASMYN Administration Rosuvastatin Calcium 40 mg 07/22/19 22:00 Crestor - PO HS JASMYN Tizanidine HCl 2 mg 07/19/19 10:00 07/22/19 10:00 Tizanidine Hcl PO 2 mg DAILY JASMYN Administration Laboratory Tests 07/21/19 07/21/19 06:07 06:07 NATHEN M-Gage CATARINA Screen Pending 1. ULISES on CKD 2. CKD stage 3 3. Renal Cyst 4. Diarrhea r/o colitis 5. Hyperkalemia improved Plan - renal function continues to improve - fluids stopped yesterday - pt was given a dose of lasix today, hold off giving more lasix for now, can evaluate and give prn - monitor volumes status - renal ultrasound reviewed - follow catarina and spep
[2019-07-22] MEDS: ACETAMINOPHEN 325 MG TABLET (FP) PO PRN (21:54)
--- NOTE | 2019-07-22 23:54 | PN ---
Teaching Attending Note Name of Resident: Marshall Vieira ATTENDING PHYSICIAN STATEMENT I saw and evaluated the patient. I reviewed the resident's note and discussed the case with the resident. I agree with the resident's findings and plan as documented. SUBJECTIVE: Patient evaluated at bedside, endorses some SOB, OOB to chair, c/o b /l knee pain, VSS. Objective: GA AAOx3, speaking in full sentences but then gets slightly breathless, sitting in chair HEENT NC/AT, neck supple HEART: S1S2, RRR LUNGS: bibasilar crackles appreciated ABDOMEN: Soft, non-distended, normal BS EXTREMITIES: trace edema Vital Signs - 24 hr 07/22/19 07/22/19 07/22/19 01:00 06:00 09:00 Temperature 99 F 98.4 F Pulse Rate 68 68 Respiratory 20 20 Rate Blood Pressure 144/58 L 156/62 O2 Sat by Pulse 96 Oximetry (%) 07/22/19 07/22/19 07/22/19 09:57 14:00 17:20 Temperature 98.6 F 98.0 F 98.2 F Pulse Rate 60 53 L 56 L Respiratory 20 20 20 Rate Blood Pressure 156/74 117/43 L 138/56 L O2 Sat by Pulse Oximetry (%) 07/22/19 07/22/19 20:06 20:07 Temperature 98.0 F Pulse Rate 60 Respiratory 20 Rate Blood Pressure 122/24 L O2 Sat by Pulse 95 Oximetry (%) Microbiology 07/18/19 10:30 Blood - Peripheral Venous Blood Culture - Preliminary NO GROWTH OBTAINED AFTER 96 HOURS, INCUBATION TO CONTINUE FOR 1 DAYS. 07/18/19 10:25 Blood - Peripheral Venous Blood Culture - Preliminary NO GROWTH OBTAINED AFTER 96 HOURS, INCUBATION TO CONTINUE FOR 1 DAYS. 07/18/19 18:30 Urine - Urine Clean Catch Urine Culture - Final Vr Ec Faecalis Escherichia Coli Laboratory Results - last 24 hr 07/19/19 07/21/19 07/21/19 19:22 06:07 06:07 WBC RBC Hgb Hct MCV MCH MCHC RDW Plt Count MPV Absolute Neuts (auto) Neutrophils % Lymphocytes % Monocytes % Eosinophils % Basophils % Nucleated RBC % Sodium Potassium Chloride Carbon Dioxide Anion Gap BUN Creatinine Est GFR (CKD-EPI)AfAm Est GFR (CKD-EPI)NonAf POC Glucometer Random Glucose Calcium Total Bilirubin AST ALT Alkaline Phosphatase Total Protein Total Protein (PEP) 5.3 L Albumin Albumin (PEP) 2.7 L Globulin 2.6 Albumin/Globulin Ratio 1.0 Beta Globulins 0.8 Urine Eosinophils None seen NATHEN M-Gage GAYE Nucleolar Pattern TNP GAYE Spindle Cecily Pattern TNP GAYE Midbody Pattern TNP GAYE Centriole Pattern TNP GAYE Nuclear Dot Pattern TNP GAYE PCNA Pattern TNP GAYE Nuclear Membr Pat TNP GAYE Speckled Pattern TNP GAYE Centromere Pattern TNP 07/22/19 07/22/19 07/22/19 06:05 06:20 06:20 WBC 8.1 RBC 3.62 Hgb 10.6 L Hct 32.2 L MCV 89.2 MCH 29.3 MCHC 32.8 RDW 15.6 Plt Count 253 MPV 10.5 Absolute Neuts (auto) 4.0 Neutrophils % 49.9 Lymphocytes % 38.8 D Monocytes % 6.7 Eosinophils % 4.1 Basophils % 0.5 Nucleated RBC % 0 Sodium 141 Potassium 4.6 Chloride 112 H Carbon Dioxide 23 Anion Gap 7 L BUN 45.2 H Creatinine 2.2 H Est GFR (CKD-EPI)AfAm 23.10 Est GFR (CKD-EPI)NonAf 19.93 POC Glucometer 199 Random Glucose 208 H Calcium 8.6 Total Bilirubin 0.4 AST 11 L ALT 15 Alkaline Phosphatase 75 Total Protein 5.2 L Total Protein (PEP) Albumin 2.5 L Albumin (PEP) Globulin Albumin/Globulin Ratio Beta Globulins Urine Eosinophils NATHEN M-Gage GAYE Nucleolar Pattern GAYE Spindle Cecily Pattern GAYE Midbody Pattern GAYE Centriole Pattern GAYE Nuclear Dot Pattern GAYE PCNA Pattern GAYE Nuclear Membr Pat GAYE Speckled Pattern GAYE Centromere Pattern 07/22/19 07/22/19 07/22/19 11:22 17:33 21:59 WBC RBC Hgb Hct MCV MCH MCHC RDW Plt Count MPV Absolute Neuts (auto) Neutrophils % Lymphocytes % Monocytes % Eosinophils % Basophils % Nucleated RBC % Sodium Potassium Chloride Carbon Dioxide Anion Gap BUN Creatinine Est GFR (CKD-EPI)AfAm Est GFR (CKD-EPI)NonAf POC Glucometer 322 317 321 Random Glucose Calcium Total Bilirubin AST ALT Alkaline Phosphatase Total Protein Total Protein (PEP) Albumin Albumin (PEP) Globulin Albumin/Globulin Ratio Beta Globulins Urine Eosinophils NATHEN M-Gage GAYE Nucleolar Pattern GAYE Spindle Cecily Pattern GAYE Midbody Pattern GAYE Centriole Pattern GAYE Nuclear Dot Pattern GAYE PCNA Pattern GAYE Nuclear Membr Pat GAYE Speckled Pattern GAYE Centromere Pattern Current Medications Generic Name Dose Route Start Last Admin Trade Name Freq PRN Reason Stop Dose Admin Acetaminophen 650 mg 07/21/19 15:12 07/22/19 21:54 Tylenol - PO 650 mg Q6H PRN Administration PAIN LEVEL 1-5 Amlodipine Besylate 10 mg 07/22/19 10:00 07/22/19 10:00 Norvasc - PO 10 mg DAILY JASMYN Administration Aspirin 81 mg 07/19/19 10:00 07/22/19 09:59 Asa - PO 81 mg DAILY JASMYN Administration Carvedilol 3.125 mg 07/19/19 10:00 07/22/19 09:59 Coreg - PO 3.125 mg DAILY JASMYN Administration Clopidogrel Bisulfate 75 mg 07/19/19 10:00 07/22/19 10:00 Plavix - PO 75 mg DAILY JASMYN Administration Ergocalciferol 50,000 unit 07/25/19 10:00 Drisdol - PO Fr@1000 JASMYN Gabapentin 200 mg 07/18/19 22:00 07/22/19 21:54 Neurontin - PO 200 mg TID JASMYN Administration Heparin Sodium (Porcine) 5,000 unit 07/21/19 22:00 07/22/19 21:55 Heparin - SQ 5,000 unit TID [facility] Administration Insulin Aspart 1 vial 07/18/19 22:00 07/22/19 21:59 Novolog Vial Sliding Scale - SQ 6 units ACHS [facility] Administration Protocol Insulin Detemir 34 units 07/21/19 16:50 07/22/19 06:12 Levemir Vial SQ 34 units DAILY@0700 JASMYN Administration Pantoprazole Sodium 40 mg 07/18/19 18:15 07/22/19 10:00 Protonix - PO 40 mg DAILY JASMYN Administration Rosuvastatin Calcium 40 mg 07/22/19 22:00 Crestor - PO HS JASMYN Tizanidine HCl 2 mg 07/19/19 10:00 07/22/19 10:00 Tizanidine Hcl PO 2 mg DAILY JASMYN Administration 84 F h/o HTN, HLD, CAD s/p CABG w/ PCI, HFpEF, type 2 DM, TIA, PAD, stage 4 CKD , OA, GERD who presented to the ED with weakness, abdominal pain and vomiting. Abdominal pain with nausea/vomiting Improved VRE on UA ID consult Acute kidney injury on stage 4 CKD CRE improved w/ IVF, however this morning during exam patient appeared slightly volume overloaded, was breathless while talking and bibasilar crackles on exam. 1 dose of Lasix 20mg given AM chem and BNP Hyperkalemia Improved. CAD s/p CABG Cont. BB/statin/ASA LDL goal <70 Control glucose HTN Cont. BP meds HLD Cont. statin HFpEF Slightly overloaded in AM Lasix given, cont. daily weights, avoid fluid overload, Na restriction Type 2 DM Continue Levemir, Novolog sliding scale PAD Cont. ASA, Plavix History of TIA Cont. ASA/statin Control F/S GERD PPI PRN OA with bilateral knee pain PT evaluation Pain control w/ Tylenol PRN Med surg
[2019-07-23] MEDS ORDERED: INSULIN (NOVOLOG) ASPART 100 UNITS/ML 10ML VIAL ONE ×3 (06:12→17:34)
[2019-07-23] MEDS: INSULIN SLIDING SCALE (NOVOLOG) 1 VIAL SQ SCH ×4 (06:16→21:43)
[2019-07-23] MEDS: INSULIN (LEVEMIR) 100 UNITS/ML UNITS SQ SCH (06:18)
[2019-07-23] MEDS: GABAPENTIN 100 MG CAPSULE PO SCH ×3 (06:20→21:45)
[2019-07-23] MEDS: HEPARIN NA (PORCINE) 5,000 UNITS/ML 1ML VIAL SQ SCH ×3 (06:20→21:45)
--- NOTE | 2019-07-23 07:31 | PN ---
Physical Exam: SUBJECTIVE: Patient seen and examined had no complains repeat echo for possible worsening CHF , given lasix 20 once will re assess daily resume crestor 40 HS OBJECTIVE: Vital Signs Period Temp Pulse Resp BP Sys/Mckeon Pulse Ox Last 24 Hr 98.0 F-98.6 F 53-62 20-20 117-156/24-74 95-96 GENERAL: AAOx3 in NAD HEAD: NC/AT EYES: EOMI, Conjunctiva clear, sclera anicteric ENT: moist mucous membrane NECK: Supple, no JVD LUNGS: CTA B/L, no crackles no wheezing no accessory muscle use. HEART: IRR IRR , , normal s1, s2, 2/6 systolic murmur RUSB and LLSB ABDOMEN:Obese Soft, ND, NT, +BS 4 Q, no CVA Tenderness LOWER EXTREMITIES: no edema, +2DP pulse, NEUROLOGICAL: No focal deficit. Normal speech. gait not observed. PSYCHIATRIC: Cooperative. Good eye contact. Appropriate mood and affect. SKIN: Warm, dry, Laboratory Results - last 24 hr 07/19/19 07/21/19 07/21/19 19:22 06:07 06:07 WBC RBC Hgb Hct MCV MCH MCHC RDW Plt Count MPV Absolute Neuts (auto) Neutrophils % Lymphocytes % Monocytes % Eosinophils % Basophils % Nucleated RBC % Sodium Potassium Chloride Carbon Dioxide Anion Gap BUN Creatinine Est GFR (CKD-EPI)AfAm Est GFR (CKD-EPI)NonAf POC Glucometer Random Glucose Calcium Total Bilirubin AST ALT Alkaline Phosphatase Total Protein Total Protein (PEP) 5.3 L Albumin Albumin (PEP) 2.7 L Globulin 2.6 Albumin/Globulin Ratio 1.0 Beta Globulins 0.8 Urine Eosinophils None seen NATHEN M-Gage GAYE Nucleolar Pattern TNP GAYE Spindle Cecily Pattern TNP GAYE Midbody Pattern TNP GAYE Centriole Pattern TNP GAYE Nuclear Dot Pattern TNP GAYE PCNA Pattern TNP GAYE Nuclear Membr Pat TNP GAYE Speckled Pattern TNP GAYE Centromere Pattern TNP 07/22/19 07/22/19 07/22/19 06:20 06:20 11:22 WBC 8.1 RBC 3.62 Hgb 10.6 L Hct 32.2 L MCV 89.2 MCH 29.3 MCHC 32.8 RDW 15.6 Plt Count 253 MPV 10.5 Absolute Neuts (auto) 4.0 Neutrophils % 49.9 Lymphocytes % 38.8 D Monocytes % 6.7 Eosinophils % 4.1 Basophils % 0.5 Nucleated RBC % 0 Sodium 141 Potassium 4.6 Chloride 112 H Carbon Dioxide 23 Anion Gap 7 L BUN 45.2 H Creatinine 2.2 H Est GFR (CKD-EPI)AfAm 23.10 Est GFR (CKD-EPI)NonAf 19.93 POC Glucometer 322 Random Glucose 208 H Calcium 8.6 Total Bilirubin 0.4 AST 11 L ALT 15 Alkaline Phosphatase 75 Total Protein 5.2 L Total Protein (PEP) Albumin 2.5 L Albumin (PEP) Globulin Albumin/Globulin Ratio Beta Globulins Urine Eosinophils NATHEN M-Gage GAYE Nucleolar Pattern GAYE Spindle Cecily Pattern GAYE Midbody Pattern GAYE Centriole Pattern GAYE Nuclear Dot Pattern GAYE PCNA Pattern GAYE Nuclear Membr Pat GAYE Speckled Pattern GAYE Centromere Pattern 07/22/19 07/22/19 07/23/19 17:33 21:59 06:15 WBC RBC Hgb Hct MCV MCH MCHC RDW Plt Count MPV Absolute Neuts (auto) Neutrophils % Lymphocytes % Monocytes % Eosinophils % Basophils % Nucleated RBC % Sodium Potassium Chloride Carbon Dioxide Anion Gap BUN Creatinine Est GFR (CKD-EPI)AfAm Est GFR (CKD-EPI)NonAf POC Glucometer 317 321 237 Random Glucose Calcium Total Bilirubin AST ALT Alkaline Phosphatase Total Protein Total Protein (PEP) Albumin Albumin (PEP) Globulin Albumin/Globulin Ratio Beta Globulins Urine Eosinophils NATHEN M-Gage GAYE Nucleolar Pattern GAYE Spindle Cecily Pattern GAYE Midbody Pattern GAYE Centriole Pattern GAYE Nuclear Dot Pattern GAYE PCNA Pattern GAYE Nuclear Membr Pat GAYE Speckled Pattern GAYE Centromere Pattern Active Medications Generic Name Dose Route Start Last Admin Trade Name Freq PRN Reason Stop Dose Admin Acetaminophen 650 mg 07/21/19 15:12 07/22/19 21:54 Tylenol - PO 650 mg Q6H PRN Administration PAIN LEVEL 1-5 Amlodipine Besylate 10 mg 07/22/19 10:00 07/22/19 10:00 Norvasc - PO 10 mg DAILY JASMYN Administration Aspirin 81 mg 07/19/19 10:00 07/22/19 09:59 Asa - PO 81 mg DAILY JASMYN Administration Carvedilol 3.125 mg 07/19/19 10:00 07/22/19 09:59 Coreg - PO 3.125 mg DAILY JASMYN Administration Clopidogrel Bisulfate 75 mg 07/19/19 10:00 07/22/19 10:00 Plavix - PO 75 mg DAILY JASMYN Administration Ergocalciferol 50,000 unit 07/25/19 10:00 Drisdol - PO Fr@1000 JASMYN Gabapentin 200 mg 07/18/19 22:00 07/23/19 06:20 Neurontin - PO 200 mg TID JASMYN Administration Heparin Sodium (Porcine) 5,000 unit 07/21/19 22:00 07/23/19 06:20 Heparin - SQ 5,000 unit TID JASMYN Administration Insulin Aspart 1 vial 07/18/19 22:00 07/23/19 06:16 Novolog Vial Sliding Scale - SQ 2 units ACHS JASMYN Administration Protocol Insulin Detemir 34 units 07/21/19 16:50 07/23/19 06:18 Levemir Vial SQ 34 units DAILY@0700 JASMYN Administration Pantoprazole Sodium 40 mg 07/18/19 18:15 07/22/19 10:00 Protonix - PO 40 mg DAILY JASMYN Administration Rosuvastatin Calcium 40 mg 07/22/19 22:00 Crestor - PO HS JASMYN Tizanidine HCl 2 mg 07/19/19 10:00 07/22/19 10:00 Tizanidine Hcl PO 2 mg DAILY JASMYN Administration CBC, BMP 07/23/19 06:30 07/23/19 06:30 ASSESSMENT/PLAN: 84 yo F w a pmh of HTN, HLD, IDDM, TIA, CAD s/p CABG/PCIs, diastolic CHFpEF, PVD, CKD, OA, and GERD presents to the ER hypotensive after 3 episodes of yellow NBNB vomitus earlier this morning with generalized weakness and abdominal pain worst in the epigastric and LLQ regions. # ULISES on CKD Stage 3 improved with IV fluids will repeat lab in AM Avoid nephrotoxic agenets , Nephrology consulted , follow SPEP , GAYE # Renal Cyst repeat images as out pt # Abdominal pain resolved , CT A/P negative for acute pathology # Asymptomatic bacteruria * UA negative , urine cx positive for Echoli and lactose ferminiting negative bacilli nando ccolonized will monitor off abx # CAD S/P CABG # D CHF cont asa plavix and lipitor and coreg 3.125 po daily # HTN on Amlodipin hold for systolic below 100 # cont home meds Janeth pentin and VIT D and Tizanidine # DM increase Levemir to 34 SQ daily and ISS , diabetic diet # FEN * Monitor off fluids for now * Monitor lytes * Diabetic low sodium diet # DVT proph Hep SQ TID #GI Proph On PPI 40 Daily # Full code Visit type - Emergency Visit Emergency Visit: Yes ED Registration Date: 07/18/19 Care time: The patient presented to the Emergency Department on the above date and was hospitalized for further evaluation of their emergent condition. - New Patient This patient is new to me today: No - Critical Care Critical Care patient: No ATTENDING PHYSICIAN STATEMENT I saw and evaluated the patient. I reviewed the resident's note and discussed the case with the resident. I agree with the resident's findings and plan as documented. SUBJECTIVE: OBJECTIVE: ASSESSMENT AND PLAN:
[2019-07-23 07:37] LABS: BASO % 0.5 % (0-2.0); EOS % 3.9 % (0-4.5); HEMATOCRIT 30.7 % (32.4-45.2); HEMOGLOBIN 10.2 GM/dL (10.7-15.3); LYMPH % 34.8 % (8-40); MCH 29.4 pg (25.7-33.7); MCHC 33.2 g/dl (32.0-36.0); MEAN CELL VOLUME 88.5 fl (80-96); MEAN PLT VOLUME 10.4 fl (7.5-11.1); MONO % 6.4 % (3.8-10.2); NEUT % 54.4 % (42.8-82.8); PLATELET COUNT 271 K/MM3 (134-434); RBC 3.47 M/mm3 (3.60-5.2); RDW 15.8 % (11.6-15.6); WHITE BLOOD COUNT 9.9 K/mm3 (4.0-10.0)
[2019-07-23 08:08] LABS: ALBUMIN 2.6 g/dl (3.4-5.0); BILIRUBIN,TOTAL 0.4 mg/dL (0.2-1); BLOOD UREA NITROGEN 46.8 mg/dL (7-18); CALCIUM 8.9 mg/dL (8.5-10.1); CREATININE 2.2 mg/dL (0.55-1.3); POTASSIUM 4.7 mmol/L (3.5-5.1); TOT PROT 5.5 g/dl (6.4-8.2)
[2019-07-23] MEDS: ASPIRIN 81 MG CHEWABLE TABLETS PO SCH (10:07)
[2019-07-23] MEDS: ACETAMINOPHEN 325 MG TABLET (FP) PO PRN (10:07)
[2019-07-23] MEDS: PANTOPRAZOLE 40 MG TABLET PO SCH (10:07)
[2019-07-23] MEDS: CLOPIDOGREL BISULFATE 75 MG TABLET (FP) PO SCH (10:07)
[2019-07-23] MEDS: CARVEDILOL 3.125 MG TABLET (FP) PO SCH (10:07)
[2019-07-23] MEDS: amLODIPine BESYLATE 10 MG TABLET (FP) PO SCH (10:07)
[2019-07-23] MEDS: TIZANIDINE HCL 2 MG TABLET PO SCH (10:08)
--- NOTE | 2019-07-23 13:31 | PN ---
Progress Note, Physician History of Present Illness: Pt seen and examined at bedside. She is awake and alert. She denies shortness of breath. She is tolerating diet. - Current Medication List Current Medications: Active Medications Acetaminophen (Tylenol -) 650 mg PO Q6H PRN PRN Reason: PAIN LEVEL 1-5 Last Admin: 07/23/19 10:07 Dose: 650 mg Amlodipine Besylate (Norvasc -) 10 mg PO DAILY COUNT INCLUDES [facility] Last Admin: 07/23/19 10:07 Dose: 10 mg Aspirin (Asa -) 81 mg PO DAILY COUNT INCLUDES THE [facility] Last Admin: 07/23/19 10:07 Dose: 81 mg Carvedilol (Coreg -) 3.125 mg PO DAILY COUNT INCLUDES THE [facility] Last Admin: 07/23/19 10:07 Dose: 3.125 mg Clopidogrel Bisulfate (Plavix -) 75 mg PO DAILY COUNT INCLUDES [facility] Last Admin: 07/23/19 10:07 Dose: 75 mg Ergocalciferol (Drisdol -) 50,000 unit PO Fr@1000 COUNT INCLUDES THE [facility] Gabapentin (Neurontin -) 200 mg PO TID COUNT INCLUDES [facility] Last Admin: 07/23/19 06:20 Dose: 200 mg Heparin Sodium (Porcine) (Heparin -) 5,000 unit SQ TID COUNT INCLUDES [facility] Last Admin: 07/23/19 06:20 Dose: 5,000 unit Insulin Aspart (Novolog Vial Sliding Scale -) 1 vial SQ [facility]; Protocol Last Admin: 07/23/19 12:37 Dose: 8 units Insulin Detemir (Levemir Vial) 34 units SQ DAILY@0700 COUNT INCLUDES [facility] Last Admin: 07/23/19 06:18 Dose: 34 units Pantoprazole Sodium (Protonix -) 40 mg PO DAILY COUNT INCLUDES [facility] Last Admin: 07/23/19 10:07 Dose: 40 mg Rosuvastatin Calcium (Crestor -) 40 mg PO [facility] Tizanidine HCl (Tizanidine Hcl) 2 mg PO DAILY COUNT INCLUDES [facility] Last Admin: 07/23/19 10:08 Dose: 2 mg - Objective Vital Signs: Vital Signs Temperature 98.3 F 07/23/19 09:13 Pulse Rate 60 07/23/19 09:13 Respiratory Rate 20 07/23/19 09:13 Blood Pressure 145/47 L 07/23/19 09:13 O2 Sat by Pulse Oximetry (%) 95 07/23/19 09:00 Constitutional: Yes: Calm Eyes: Yes: Conjunctiva Clear HENT: Yes: Atraumatic Neck: Yes: Supple Cardiovascular: Yes: S1, S2 Respiratory: Yes: CTA Bilaterally Gastrointestinal: Yes: Soft, Abdomen, Obese Genitourinary: Yes: WNL Musculoskeletal: Yes: WNL Edema: No Integumentary: Yes: WNL Neurological: Yes: Oriented Psychiatric: Yes: Oriented Labs: CBC, BMP 07/23/19 06:30 07/23/19 06:30 INR, PTT INR 0.89 (0.83-1.09) 07/18/19 10:30 Problem List - Problems (1) [id number] kidney injury Code(s): N17.9 - ACUTE KIDNEY FAILURE, UNSPECIFIED; N18.9 - CHRONIC KIDNEY DISEASE, UNSPECIFIED Qualifiers: Acute renal failure type: unspecified Chronic kidney disease stage: unspecified stage Qualified Code(s): N17.9 - Acute kidney failure, unspecified ; N18.9 - Chronic kidney disease, unspecified Assessment/Plan Current Medications Generic Name Dose Route Start Last Admin Trade Name Freq PRN Reason Stop Dose Admin Acetaminophen 650 mg 07/21/19 15:12 07/23/19 10:07 Tylenol - PO 650 mg Q6H PRN Administration PAIN LEVEL 1-5 Amlodipine Besylate 10 mg 07/22/19 10:00 07/23/19 10:07 Norvasc - PO 10 mg DAILY JASMYN Administration Aspirin 81 mg 07/19/19 10:00 07/23/19 10:07 Asa - PO 81 mg DAILY JASMYN Administration Carvedilol 3.125 mg 07/19/19 10:00 07/23/19 10:07 Coreg - PO 3.125 mg DAILY JASMYN Administration Clopidogrel Bisulfate 75 mg 07/19/19 10:00 07/23/19 10:07 Plavix - PO 75 mg DAILY JASMYN Administration Ergocalciferol 50,000 unit 07/25/19 10:00 Drisdol - PO Fr@1000 JASMYN Gabapentin 200 mg 07/18/19 22:00 07/23/19 06:20 Neurontin - PO 200 mg TID JASMYN Administration Heparin Sodium (Porcine) 5,000 unit 07/21/19 22:00 07/23/19 06:20 Heparin - SQ 5,000 unit TID JASMYN Administration Insulin Aspart 1 vial 07/18/19 22:00 07/23/19 12:37 Novolog Vial Sliding Scale - SQ 8 units ACHS JASMYN Administration Protocol Insulin Detemir 34 units 07/21/19 16:50 07/23/19 06:18 Levemir Vial SQ 34 units DAILY@0700 JASMYN Administration Pantoprazole Sodium 40 mg 07/18/19 18:15 07/23/19 10:07 Protonix - PO 40 mg DAILY JASMYN Administration Rosuvastatin Calcium 40 mg 07/22/19 22:00 Crestor - PO HS JASMYN Tizanidine HCl 2 mg 07/19/19 10:00 07/23/19 10:08 Tizanidine Hcl PO 2 mg DAILY JASMYN Administration Laboratory Tests 07/18/19 14:54 Urine Protein 3+ H 1. ULISES on CKD 2. CKD stage 3 3. Renal Cyst 4. Diarrhea r/o colitis 5. Hyperkalemia improved 6. proteinuria Plan - renal function stabilizing - repeat labs in am - evalaute for lasix daily - hold off fluids - output proteinuia workup - check prt to emergency veterinary assistant ratio - follow catarina and spep
--- NOTE | 2019-07-23 14:13 | PN ---
Progress Note (short form) - Note Progress Note: s: n ocp sob palps dizzy Current Medications Generic Name Dose Route Start Last Admin Trade Name Freq PRN Reason Stop Dose Admin Acetaminophen 650 mg 07/21/19 15:12 07/23/19 10:07 Tylenol - PO 650 mg Q6H PRN Administration PAIN LEVEL 1-5 Amlodipine Besylate 10 mg 07/22/19 10:00 07/23/19 10:07 Norvasc - PO 10 mg DAILY JASMYN Administration Aspirin 81 mg 07/19/19 10:00 07/23/19 10:07 Asa - PO 81 mg DAILY JASMYN Administration Carvedilol 3.125 mg 07/19/19 10:00 07/23/19 10:07 Coreg - PO 3.125 mg DAILY JASMYN Administration Clopidogrel Bisulfate 75 mg 07/19/19 10:00 07/23/19 10:07 Plavix - PO 75 mg DAILY JASMYN Administration Ergocalciferol 50,000 unit 07/25/19 10:00 Drisdol - PO Fr@1000 JASMYN Gabapentin 200 mg 07/18/19 22:00 07/23/19 06:20 Neurontin - PO 200 mg TID JASMYN Administration Heparin Sodium (Porcine) 5,000 unit 07/21/19 22:00 07/23/19 06:20 Heparin - SQ 5,000 unit TID JASMYN Administration Insulin Aspart 1 vial 07/18/19 22:00 07/23/19 12:37 Novolog Vial Sliding Scale - SQ 8 units ACHS JASMYN Administration Protocol Insulin Detemir 34 units 07/21/19 16:50 07/23/19 06:18 Levemir Vial SQ 34 units DAILY@0700 JASMYN Administration Pantoprazole Sodium 40 mg 07/18/19 18:15 07/23/19 10:07 Protonix - PO 40 mg DAILY JASMYN Administration Rosuvastatin Calcium 40 mg 07/22/19 22:00 Crestor - PO HS JASMYN Tizanidine HCl 2 mg 07/19/19 10:00 07/23/19 10:08 Tizanidine Hcl PO 2 mg DAILY JASMNY Administration Vital Signs Period Temp Pulse Resp BP Sys/Mckeon Pulse Ox Last 24 Hr 98.0 F-98.4 F 56-62 20-20 122-145/24-58 95-95 nad no jvd rrr s1s2 no mrg cta bl nl eff awake no le e/c/c abd nt nd pos bs no jaundice diaphoresis CBC, BMP 07/23/19 06:30 07/23/19 06:30 Imaging - Results Chest X-ray: Image Reviewed Cat Scan: Report Reviewed EKG: Image Reviewed echo 07/2019: lvh, nl lv/rv, lae, mild as Assessment/Plan IMP: Chronic diastolic CHF CAD s/p CABG (ROSENBERG to LAD, SVG to D1 2000; PCI 2013 (patent grafts at that time) History of TIA HTN Acute on chronic renal failure Mild DM REC: 1. Chronic diastolic CHF: - as of office visit 07/15, was off Lasix due to CKD and worsened renal fxn -Since 07/18 (admission), lasix held and hydrated with improvement in creatinine. -vol stable presently -given angely would diurese PRN for now 2. CAD: s/p CABG, PCI (last 2013) -Enzymes negative x 2; no anginal sx -Cont Plavix -Resume Crestor 40 -Cont Coreg 3. History of TIA: -Cont statin and Plavix 4. HTN: at goal, < 150/90 -cont coreg. No NOY/ARB due to acute on chronic CKD 5. Acute on chronic renal failure: -as per renal 6. : stable, mild on echo here
--- NOTE | 2019-07-23 16:53 | PN ---
Teaching Attending Note Name of Resident: Marshall Vieira ATTENDING PHYSICIAN STATEMENT I saw and evaluated the patient. I reviewed the resident's note and discussed the case with the resident. I agree with the resident's findings and plan as documented. SUBJECTIVE: Patient evaluated at bedside, sitting in chair, denies complaints, can stand but has trouble ambulating will need Home PT v.s. SNF ( refusing SNF placement), VS otherwise stable, renal function stabilizing. Objective: GA AAOx3, speaking in full sentences, sitting in chair, able to stand but unsteady when taking a step HEENT NC/AT, neck supple HEART: S1S2, RRR LUNGS: fine crackles at bases, no wheezing, no accessory M use ABDOMEN: Soft, non-distended, normal BS EXTREMITIES: trace edema Vital Signs - 24 hr 07/22/19 07/22/19 07/22/19 17:20 20:06 20:07 Temperature 98.2 F 98.0 F Pulse Rate 56 L 60 Respiratory 20 20 Rate Blood Pressure 138/56 L 122/24 L O2 Sat by Pulse 95 Oximetry (%) 07/23/19 07/23/19 07/23/19 06:28 09:00 09:13 Temperature 98.4 F 98.3 F Pulse Rate 62 60 Respiratory 20 20 Rate Blood Pressure 140/58 L 145/47 L O2 Sat by Pulse 95 Oximetry (%) 07/23/19 14:00 Temperature 97.9 F Pulse Rate 55 L Respiratory 20 Rate Blood Pressure 100/44 L O2 Sat by Pulse Oximetry (%) Microbiology 07/18/19 10:30 Blood - Peripheral Venous Blood Culture - Final NO GROWTH AFTER 5 DAYS INCUBATION 07/18/19 10:25 Blood - Peripheral Venous Blood Culture - Final NO GROWTH AFTER 5 DAYS INCUBATION 07/18/19 18:30 Urine - Urine Clean Catch Urine Culture - Final Vr Ec Faecalis Escherichia Coli Laboratory Results - last 24 hr 07/19/19 07/21/19 07/21/19 19:22 06:07 06:07 WBC RBC Hgb Hct MCV MCH MCHC RDW Plt Count MPV Absolute Neuts (auto) Neutrophils % Lymphocytes % Monocytes % Eosinophils % Basophils % Nucleated RBC % Sodium Potassium Chloride Carbon Dioxide Anion Gap BUN Creatinine Est GFR (CKD-EPI)AfAm Est GFR (CKD-EPI)NonAf POC Glucometer Random Glucose Calcium Total Bilirubin AST ALT Alkaline Phosphatase B-Natriuretic Peptide Total Protein Total Protein (PEP) 5.3 L Albumin Albumin (PEP) 2.7 L Globulin 2.6 Albumin/Globulin Ratio 1.0 Beta Globulins 0.8 Urine Eosinophils None seen NATHEN M-Gage GAYE Nucleolar Pattern TNP GAYE Spindle Cecily Pattern TNP GAYE Midbody Pattern TNP GAYE Centriole Pattern TNP GAYE Nuclear Dot Pattern TNP GAYE PCNA Pattern TNP GAYE Nuclear Membr Pat TNP GAYE Speckled Pattern TNP GAYE Centromere Pattern TNP 07/22/19 07/22/19 07/23/19 17:33 21:59 06:15 WBC RBC Hgb Hct MCV MCH MCHC RDW Plt Count MPV Absolute Neuts (auto) Neutrophils % Lymphocytes % Monocytes % Eosinophils % Basophils % Nucleated RBC % Sodium Potassium Chloride Carbon Dioxide Anion Gap BUN Creatinine Est GFR (CKD-EPI)AfAm Est GFR (CKD-EPI)NonAf POC Glucometer 317 321 237 Random Glucose Calcium Total Bilirubin AST ALT Alkaline Phosphatase B-Natriuretic Peptide Total Protein Total Protein (PEP) Albumin Albumin (PEP) Globulin Albumin/Globulin Ratio Beta Globulins Urine Eosinophils NATHEN M-Gage GAYE Nucleolar Pattern GAYE Spindle Cecily Pattern GAYE Midbody Pattern GAYE Centriole Pattern GAYE Nuclear Dot Pattern GAYE PCNA Pattern GAYE Nuclear Membr Pat GAYE Speckled Pattern GAYE Centromere Pattern 07/23/19 07/23/19 07/23/19 06:30 06:30 06:30 WBC 9.9 RBC 3.47 L Hgb 10.2 L Hct 30.7 L MCV 88.5 MCH 29.4 MCHC 33.2 RDW 15.8 H Plt Count 271 MPV 10.4 Absolute Neuts (auto) 5.4 Neutrophils % 54.4 Lymphocytes % 34.8 Monocytes % 6.4 Eosinophils % 3.9 Basophils % 0.5 Nucleated RBC % 0 Sodium 141 Potassium 4.7 Chloride 110 H Carbon Dioxide 23 Anion Gap 8 BUN 46.8 H Creatinine 2.2 H Est GFR (CKD-EPI)AfAm 23.10 Est GFR (CKD-EPI)NonAf 19.93 POC Glucometer Random Glucose 239 H Calcium 8.9 Total Bilirubin 0.4 AST 10 L ALT 16 Alkaline Phosphatase 78 B-Natriuretic Peptide 1829.1 H Total Protein 5.5 L Total Protein (PEP) Albumin 2.6 L Albumin (PEP) Globulin Albumin/Globulin Ratio Beta Globulins Urine Eosinophils NATHEN M-Gage GAYE Nucleolar Pattern GAYE Spindle Cecily Pattern GAYE Midbody Pattern GAYE Centriole Pattern GAYE Nuclear Dot Pattern GAYE PCNA Pattern GAYE Nuclear Membr Pat GAYE Speckled Pattern GAYE Centromere Pattern 07/23/19 12:26 WBC RBC Hgb Hct MCV MCH MCHC RDW Plt Count MPV Absolute Neuts (auto) Neutrophils % Lymphocytes % Monocytes % Eosinophils % Basophils % Nucleated RBC % Sodium Potassium Chloride Carbon Dioxide Anion Gap BUN Creatinine Est GFR (CKD-EPI)AfAm Est GFR (CKD-EPI)NonAf POC Glucometer 374 Random Glucose Calcium Total Bilirubin AST ALT Alkaline Phosphatase B-Natriuretic Peptide Total Protein Total Protein (PEP) Albumin Albumin (PEP) Globulin Albumin/Globulin Ratio Beta Globulins Urine Eosinophils NATHEN M-Gage GAYE Nucleolar Pattern GAYE Spindle Cecily Pattern GAYE Midbody Pattern GAYE Centriole Pattern GAYE Nuclear Dot Pattern GAYE PCNA Pattern GAYE Nuclear Membr Pat GAYE Speckled Pattern GAYE Centromere Pattern Home Medications Medication Instructions Recorded Clopidogrel Bisulfate [Plavix] 75 mg PO DAILY 02/08/18 Atorvastatin Ca [Lipitor] 80 mg PO HS 05/15/19 Carvedilol 3.125 mg PO DAILY 05/15/19 Amlodipine Besylate 10 mg PO DAILY 05/16/19 Ergocalciferol (Vitamin D2) 1 cap PO WEEKLY 05/16/19 [Vitamin D2] Gabapentin 200 mg PO TID 05/16/19 Tizanidine HCl 2 mg PO DAILY 05/16/19 Amlodipine Besylate [Norvasc -] 10 mg PO DAILY tablet 05/22/19 Aspirin [ASA -] 81 mg PO DAILY tab.chew 05/22/19 Insulin (Levemir) [Levemir Vial] 30 units SQ DAILY@0700 units 05/22/19 Insulin Sliding Scale [Novolog 1 vial SQ TIDAC units 05/22/19 Vial Sliding Scale -] Current Medications Generic Name Dose Route Start Last Admin Trade Name Freq PRN Reason Stop Dose Admin Acetaminophen 650 mg 07/21/19 15:12 07/23/19 10:07 Tylenol - PO 650 mg Q6H PRN Administration PAIN LEVEL 1-5 Amlodipine Besylate 10 mg 07/22/19 10:00 07/23/19 10:07 Norvasc - PO 10 mg DAILY JASMYN Administration Aspirin 81 mg 07/19/19 10:00 07/23/19 10:07 Asa - PO 81 mg DAILY JASMYN Administration Carvedilol 3.125 mg 07/19/19 10:00 07/23/19 10:07 Coreg - PO 3.125 mg DAILY JASMYN Administration Clopidogrel Bisulfate 75 mg 07/19/19 10:00 07/23/19 10:07 Plavix - PO 75 mg DAILY JASMYN Administration Ergocalciferol 50,000 unit 07/25/19 10:00 Drisdol - PO Fr@1000 JASMYN Gabapentin 200 mg 07/18/19 22:00 07/23/19 14:22 Neurontin - PO 200 mg TID JASMYN Administration Heparin Sodium (Porcine) 5,000 unit 07/21/19 22:00 07/23/19 14:25 Heparin - SQ 5,000 unit TID JASMYN Administration Insulin Aspart 1 vial 07/18/19 22:00 07/23/19 12:37 Novolog Vial Sliding Scale - SQ 8 units ACHS JASMYN Administration Protocol Insulin Detemir 34 units 07/21/19 16:50 07/23/19 06:18 Levemir Vial SQ 34 units DAILY@0700 JASMYN Administration Pantoprazole Sodium 40 mg 07/18/19 18:15 07/23/19 10:07 Protonix - PO 40 mg DAILY JASMYN Administration Rosuvastatin Calcium 10 mg 07/23/19 22:00 Crestor - PO HS JASMYN Tizanidine HCl 2 mg 07/19/19 10:00 07/23/19 10:08 Tizanidine Hcl PO 2 mg DAILY JASMYN Administration 84 F h/o HTN, HLD, CAD s/p CABG w/ PCI, HFpEF, type 2 DM, TIA, PAD, stage 4 CKD , OA, GERD who presented to the ED with weakness, abdominal pain and vomiting. Abdominal pain with nausea/vomiting Improved VRE on UA, as per ID no need to treat as pt. asymptotic ID consult: Dr Blanco Acute kidney injury on stage 4 CKD CRE stabilizing hold off Lasix for now, as per Cardio Monitor Chem and volume status Hyperkalemia Improved. CAD s/p CABG Cont. BB/statin/ASA LDL goal <70 Control glucose HTN Cont. BP meds HLD Cont. statin HFpEF Slightly overloaded in AM clinically euvolemic, hold lasix, low Na diet, daily weights Type 2 DM Continue Levemir, Novolog sliding scale PAD Cont. ASA, Plavix History of TIA Cont. ASA/statin Control F/S GERD PPI PRN OA with bilateral knee pain PT evaluation Pain control w/ Tylenol PRN Med surg Will likely need SNF placement v.s. VNS/Home PT for safe discharge, will need to discuss with family as her is refusing patient for SNF placement.
[2019-07-23] MEDS: ROSUVASTATIN CA 10 MG TABLET (FP) PO SCH (21:45)
[2019-07-24] MEDS ORDERED: INSULIN (NOVOLOG) ASPART 100 UNITS/ML 10ML VIAL ONE ×4 (06:19→20:36)
[2019-07-24] MEDS: INSULIN SLIDING SCALE (NOVOLOG) 1 VIAL SQ SCH ×4 (07:55→21:04)
[2019-07-24] MEDS: HEPARIN NA (PORCINE) 5,000 UNITS/ML 1ML VIAL SQ SCH ×3 (07:55→21:01)
[2019-07-24] MEDS: GABAPENTIN 100 MG CAPSULE PO SCH ×3 (07:55→21:01)
[2019-07-24] MEDS: INSULIN (LEVEMIR) 100 UNITS/ML UNITS SQ SCH (07:57)
[2019-07-24 08:39] LABS: ALBUMIN 2.7 g/dl (3.4-5.0); BILIRUBIN,TOTAL 0.3 mg/dL (0.2-1); BLOOD UREA NITROGEN 52.5 mg/dL (7-18); CALCIUM 9.3 mg/dL (8.5-10.1); CREATININE 2.5 mg/dL (0.55-1.3); POTASSIUM 4.7 mmol/L (3.5-5.1); TOT PROT 5.8 g/dl (6.4-8.2)
[2019-07-24] MEDS: ASPIRIN 81 MG CHEWABLE TABLETS PO SCH (09:17)
[2019-07-24] MEDS: PANTOPRAZOLE 40 MG TABLET PO SCH (09:17)
[2019-07-24] MEDS: CLOPIDOGREL BISULFATE 75 MG TABLET (FP) PO SCH (09:17)
[2019-07-24] MEDS: CARVEDILOL 3.125 MG TABLET (FP) PO SCH (09:17)
[2019-07-24] MEDS: amLODIPine BESYLATE 10 MG TABLET (FP) PO SCH (09:18)
[2019-07-24] MEDS: TIZANIDINE HCL 2 MG TABLET PO SCH (09:19)
--- NOTE | 2019-07-24 11:07 | PN ---
Physical Exam: SUBJECTIVE: Patient seen and examined no complain , kidney function worsening. possible dc in am , follow up with Danielle ayala for kidney function as out pt. OBJECTIVE: Vital Signs Period Temp Pulse Resp BP Sys/Mckeon Pulse Ox Last 24 Hr 97.9 F-98.9 F 55-60 18-20 100-134/44-56 95-96 GENERAL: AAOx3 in NAD HEAD: NC/AT EYES: EOMI, Conjunctiva clear, sclera anicteric ENT: moist mucous membrane NECK: Supple, no JVD LUNGS: CTA B/L, no crackles no wheezing no accessory muscle use. HEART: IRR IRR , , normal s1, s2, 2/6 systolic murmur RUSB and LLSB ABDOMEN:Obese Soft, ND, NT, +BS 4 Q, no CVA Tenderness LOWER EXTREMITIES: no edema, +2DP pulse, NEUROLOGICAL: No focal deficit. Normal speech. gait not observed. PSYCHIATRIC: Cooperative. Good eye contact. Appropriate mood and affect. SKIN: Warm, dry, Laboratory Results - last 24 hr 07/23/19 07/23/19 07/23/19 12:26 16:00 17:28 Sodium Potassium Chloride Carbon Dioxide Anion Gap BUN Creatinine Est GFR (CKD-EPI)AfAm Est GFR (CKD-EPI)NonAf POC Glucometer 374 263 Random Glucose Calcium Total Bilirubin AST ALT Alkaline Phosphatase Total Protein Albumin U Random Total Protein 259.8 H Urine Creatinine 80.0 Protein/Creatinin Ratio 3.2 07/23/19 07/24/19 07/24/19 20:28 06:33 07:28 Sodium 139 Potassium 4.7 Chloride 108 H Carbon Dioxide 23 Anion Gap 7 L BUN 52.5 H Creatinine 2.5 H Est GFR (CKD-EPI)AfAm 19.79 Est GFR (CKD-EPI)NonAf 17.07 POC Glucometer 294 268 Random Glucose 341 H Calcium 9.3 Total Bilirubin 0.3 AST 10 L ALT 15 Alkaline Phosphatase 89 Total Protein 5.8 L Albumin 2.7 L U Random Total Protein Urine Creatinine Protein/Creatinin Ratio Active Medications Generic Name Dose Route Start Last Admin Trade Name Freq PRN Reason Stop Dose Admin Acetaminophen 650 mg 07/21/19 15:12 07/23/19 10:07 Tylenol - PO 650 mg Q6H PRN Administration PAIN LEVEL 1-5 Amlodipine Besylate 10 mg 07/22/19 10:00 07/24/19 09:18 Norvasc - PO 10 mg DAILY JASMYN Administration Aspirin 81 mg 07/19/19 10:00 07/24/19 09:17 Asa - PO 81 mg DAILY JASMYN Administration Carvedilol 3.125 mg 07/19/19 10:00 07/24/19 09:17 Coreg - PO 3.125 mg DAILY JASMYN Administration Clopidogrel Bisulfate 75 mg 07/19/19 10:00 07/24/19 09:17 Plavix - PO 75 mg DAILY JASMYN Administration Ergocalciferol 50,000 unit 07/25/19 10:00 Drisdol - PO Fr@1000 JASMYN Gabapentin 200 mg 07/18/19 22:00 07/24/19 07:55 Neurontin - PO 200 mg TID JASMYN Administration Heparin Sodium (Porcine) 5,000 unit 07/21/19 22:00 07/24/19 07:55 Heparin - SQ 5,000 unit TID JASMYN Administration Insulin Aspart 1 vial 07/18/19 22:00 07/24/19 07:55 Novolog Vial Sliding Scale - SQ 4 units ACHS JASMYN Administration Protocol Insulin Detemir 34 units 07/21/19 16:50 07/24/19 07:57 Levemir Vial SQ 34 units DAILY@0700 JASMYN Administration Rosuvastatin Calcium 10 mg 07/23/19 22:00 07/23/19 21:45 Crestor - PO 10 mg HS JASMYN Administration Tizanidine HCl 2 mg 07/19/19 10:00 07/24/19 09:19 Tizanidine Hcl PO 2 mg DAILY JASMYN Administration CBC, BMP 07/23/19 06:30 07/24/19 07:28 ASSESSMENT/PLAN: 84 yo F w a pmh of HTN, HLD, IDDM, TIA, CAD s/p CABG/PCIs, diastolic CHFpEF, PVD, CKD, OA, and GERD presents to the ER hypotensive after 3 episodes of yellow NBNB vomitus earlier this morning with generalized weakness and abdominal pain worst in the epigastric and LLQ regions. # ULISES on CKD Stage 3 improved with IV fluids will repeat lab in AM Avoid nephrotoxic agenets , Nephrology consulted , follow SPEP , GAYE # Renal Cyst repeat images as out pt # Abdominal pain resolved , CT A/P negative for acute pathology # Asymptomatic bacteruria * UA negative , urine cx positive for Echoli and lactose ferminiting negative bacilli , nando ccolonized will monitor off abx # CAD S/P CABG # D CHF cont asa plavix and lipitor and coreg 3.125 po daily # HTN on Amlodipin hold for systolic below 100 # cont home meds Janeth pentin and VIT D and Tizanidine # DM increase Levemir to 34 SQ daily and ISS , diabetic diet # FEN * Monitor off fluids for now * Monitor lytes * Diabetic low sodium diet # DVT proph Hep SQ TID #GI Proph On PPI 40 Daily # Full code Visit type - Emergency Visit Emergency Visit: Yes ED Registration Date: 07/18/19 Care time: The patient presented to the Emergency Department on the above date and was hospitalized for further evaluation of their emergent condition. - New Patient This patient is new to me today: No - Critical Care Critical Care patient: No - Discharge Referral Referred to [facility] Med P.C.: No ATTENDING PHYSICIAN STATEMENT I saw and evaluated the patient. I reviewed the resident's note and discussed the case with the resident. I agree with the resident's findings and plan as documented. SUBJECTIVE: OBJECTIVE: ASSESSMENT AND PLAN:
--- NOTE | 2019-07-24 11:33 | PN ---
Progress Note (short form) - Note Progress Note: s: no cp sob palps dizzy Current Medications Generic Name Dose Route Start Last Admin Trade Name Freq PRN Reason Stop Dose Admin Acetaminophen 650 mg 07/21/19 15:12 07/23/19 10:07 Tylenol - PO 650 mg Q6H PRN Administration PAIN LEVEL 1-5 Amlodipine Besylate 10 mg 07/22/19 10:00 07/24/19 09:18 Norvasc - PO 10 mg DAILY JASMYN Administration Aspirin 81 mg 07/19/19 10:00 07/24/19 09:17 Asa - PO 81 mg DAILY JASMYN Administration Carvedilol 3.125 mg 07/19/19 10:00 07/24/19 09:17 Coreg - PO 3.125 mg DAILY JASMYN Administration Clopidogrel Bisulfate 75 mg 07/19/19 10:00 07/24/19 09:17 Plavix - PO 75 mg DAILY JASMYN Administration Ergocalciferol 50,000 unit 07/25/19 10:00 Drisdol - PO Fr@1000 JASMYN Gabapentin 200 mg 07/18/19 22:00 07/24/19 07:55 Neurontin - PO 200 mg TID JASMYN Administration Heparin Sodium (Porcine) 5,000 unit 07/21/19 22:00 07/24/19 07:55 Heparin - SQ 5,000 unit TID JASMYN Administration Insulin Aspart 1 vial 07/18/19 22:00 07/24/19 11:12 Novolog Vial Sliding Scale - SQ 8 units ACHS JASMYN Administration Protocol Insulin Detemir 34 units 07/21/19 16:50 07/24/19 07:57 Levemir Vial SQ 34 units DAILY@0700 JASMYN Administration Rosuvastatin Calcium 10 mg 07/23/19 22:00 07/23/19 21:45 Crestor - PO 10 mg HS JASMYN Administration Tizanidine HCl 2 mg 07/19/19 10:00 07/24/19 09:19 Tizanidine Hcl PO 2 mg DAILY JASMYN Administration Vital Signs Period Temp Pulse Resp BP Sys/Mckeon Pulse Ox Last 24 Hr 97.9 F-98.9 F 55-60 18-20 100-134/44-56 95-96 nad no jvd rrr s1s2 no mrg cta bl nl eff awake no le e/c/c abd nt nd pos bs no jaundice diaphoresis CBC, BMP 07/23/19 06:30 03/05/20 07:28 Imaging - Results Chest X-ray: Image Reviewed Cat Scan: Report Reviewed EKG: Image Reviewed echo 07/2019: lvh, nl lv/rv, lae, mild as Assessment/Plan IMP: Chronic diastolic CHF CAD s/p CABG (ROSENBERG to LAD, SVG to D1 2000; PCI 2013 (patent grafts at that time) History of TIA HTN Acute on chronic renal failure Mild DM REC: 1. Chronic diastolic CHF: - as of office visit 07/15, was off Lasix due to CKD and worsened renal fxn -Since 07/18 (admission), lasix held and hydrated with improvement in creatinine. -vol stable presently -given angely would diurese PRN for now 2. CAD: s/p CABG, PCI (last 2013) -Enzymes negative x 2; no anginal sx -Cont Plavix -Resume Crestor 40 -Cont Coreg 3. History of TIA: -Cont statin and Plavix 4. HTN: at goal, < 150/90 -cont coreg. No NOY/ARB due to acute on chronic CKD 5. Acute on chronic renal failure: -as per renal 6. : stable, mild on echo here
--- NOTE | 2019-07-24 12:35 | PN ---
Teaching Attending Note Name of Resident: Marshall Vieira ATTENDING PHYSICIAN STATEMENT I saw and evaluated the patient. I reviewed the resident's note and discussed the case with the resident. I agree with the resident's findings and plan as documented. SUBJECTIVE: Patient evaluated at bedside, sitting in chair, comfortable, denies SOB/CP, working with PT, patient and opting for Home PT (refusing SNF), VS otherwise stable, renal following up for worsening ULISES, diuresis held. Objective: GA AAOx3, speaking in full sentences, sitting in chair, NAD HEENT NC/AT, neck supple, dry MM HEART: S1S2, RRR LUNGS: CTAB, no crackles or wheezing, no accessory M use ABDOMEN: Soft, non-distended, normal BS EXTREMITIES: edema markedly decreased, wrinkled skin LE b/l trace edema Vital Signs - 24 hr 07/23/19 07/23/19 07/23/19 14:00 17:49 20:20 Temperature 97.9 F 98.1 F Pulse Rate 55 L 58 L Respiratory 20 20 20 Rate Blood Pressure 100/44 L 118/56 L O2 Sat by Pulse 96 Oximetry (%) 07/23/19 07/24/19 07/24/19 20:50 07:45 08:18 Temperature 98.9 F 98.1 F Pulse Rate 56 L 60 Respiratory 18 20 20 Rate Blood Pressure 134/52 L 124/54 L O2 Sat by Pulse 95 Oximetry (%) Microbiology 07/18/19 10:30 Blood - Peripheral Venous Blood Culture - Final NO GROWTH AFTER 5 DAYS INCUBATION 07/18/19 10:25 Blood - Peripheral Venous Blood Culture - Final NO GROWTH AFTER 5 DAYS INCUBATION 07/18/19 18:30 Urine - Urine Clean Catch Urine Culture - Final Vr Ec Faecalis Escherichia Coli Laboratory Results - last 24 hr 07/23/19 07/23/19 07/23/19 16:00 17:28 20:28 Sodium Potassium Chloride Carbon Dioxide Anion Gap BUN Creatinine Est GFR (CKD-EPI)AfAm Est GFR (CKD-EPI)NonAf POC Glucometer 263 294 Random Glucose Calcium Total Bilirubin AST ALT Alkaline Phosphatase Total Protein Albumin U Random Total Protein 259.8 H Urine Creatinine 80.0 Protein/Creatinin Ratio 3.2 07/24/19 07/24/19 07/24/19 06:33 07:28 11:10 Sodium 139 Potassium 4.7 Chloride 108 H Carbon Dioxide 23 Anion Gap 7 L BUN 52.5 H Creatinine 2.5 H Est GFR (CKD-EPI)AfAm 19.79 Est GFR (CKD-EPI)NonAf 17.07 POC Glucometer 268 385 Random Glucose 341 H Calcium 9.3 Total Bilirubin 0.3 AST 10 L ALT 15 Alkaline Phosphatase 89 Total Protein 5.8 L Albumin 2.7 L U Random Total Protein Urine Creatinine Protein/Creatinin Ratio Home Medications Medication Instructions Recorded Clopidogrel Bisulfate [Plavix] 75 mg PO DAILY 02/08/18 Atorvastatin Ca [Lipitor] 80 mg PO HS 05/15/19 Carvedilol 3.125 mg PO DAILY 05/15/19 Amlodipine Besylate 10 mg PO DAILY 05/16/19 Ergocalciferol (Vitamin D2) 1 cap PO WEEKLY 05/16/19 [Vitamin D2] Gabapentin 200 mg PO TID 05/16/19 Tizanidine HCl 2 mg PO DAILY 05/16/19 Amlodipine Besylate [Norvasc -] 10 mg PO DAILY tablet 05/22/19 Aspirin [ASA -] 81 mg PO DAILY tab.chew 05/22/19 Insulin (Levemir) [Levemir Vial] 30 units SQ DAILY@0700 units 05/22/19 Insulin Sliding Scale [Novolog 1 vial SQ TIDAC units 05/22/19 Vial Sliding Scale -] Current Medications Generic Name Dose Route Start Last Admin Trade Name Freq PRN Reason Stop Dose Admin Acetaminophen 650 mg 07/21/19 15:12 07/23/19 10:07 Tylenol - PO 650 mg Q6H PRN Administration PAIN LEVEL 1-5 Amlodipine Besylate 10 mg 07/22/19 10:00 07/24/19 09:18 Norvasc - PO 10 mg DAILY JASMYN Administration Aspirin 81 mg 07/19/19 10:00 07/24/19 09:17 Asa - PO 81 mg DAILY JASMYN Administration Carvedilol 3.125 mg 07/19/19 10:00 07/24/19 09:17 Coreg - PO 3.125 mg DAILY JASMYN Administration Clopidogrel Bisulfate 75 mg 07/19/19 10:00 07/24/19 09:17 Plavix - PO 75 mg DAILY JASMYN Administration Ergocalciferol 50,000 unit 07/25/19 10:00 Drisdol - PO Fr@1000 JASMYN Gabapentin 200 mg 07/18/19 22:00 07/24/19 07:55 Neurontin - PO 200 mg TID JASMYN Administration Heparin Sodium (Porcine) 5,000 unit 07/21/19 22:00 07/24/19 07:55 Heparin - SQ 5,000 unit TID JASMYN Administration Insulin Aspart 1 vial 07/18/19 22:00 07/24/19 11:12 Novolog Vial Sliding Scale - SQ 8 units ACHS JASMYN Administration Protocol Insulin Detemir 34 units 07/21/19 16:50 07/24/19 07:57 Levemir Vial SQ 34 units DAILY@0700 JASMYN Administration Rosuvastatin Calcium 10 mg 07/23/19 22:00 07/23/19 21:45 Crestor - PO 10 mg HS JASMYN Administration Tizanidine HCl 2 mg 07/19/19 10:00 07/24/19 09:19 Tizanidine Hcl PO 2 mg DAILY JASYMN Administration A/P: 84 F h/o HTN, HLD, CAD s/p CABG w/ PCI, HFpEF, type 2 DM, TIA, PAD, stage 4 CKD, OA, GERD who presented to the ED with weakness, abdominal pain and vomiting. Acute kidney injury on stage 4 CKD CRE stabilizing hold off Lasix for now, as per Cardio Monitor Chem and volume status Abdominal pain with nausea/vomiting Improved VRE on UA, as per ID no need to treat as pt. asymptotic ID consult: Dr Blanco Hyperkalemia Improved. Hold NOY.ARB in view of declining renal function CAD s/p CABG Cont. BB/statin/ASA LDL goal <70 Control glucose HTN Cont. BP meds HLD Cont. statin HFpEF clinically volume depleted hold lasix, low Na diet, daily weights Type 2 DM Continue Levemir, Novolog sliding scale PAD Cont. ASA, Plavix History of TIA Cont. ASA/statin Control F/S GERD DC PPI in view of worsening renal function OA with bilateral knee pain PT evaluation Pain control w/ Tylenol PRN DVT ppx: Heparin SC Med surg Dispo: Family requesting Home PT (refusing placement in facility)
--- NOTE | 2019-07-24 16:09 | PN ---
Progress Note, Physician History of Present Illness: Pt seen and examined at bedside. She is awake and alert. She denies shortness of breath. - Current Medication List Current Medications: Active Medications Acetaminophen (Tylenol -) 650 mg PO Q6H PRN PRN Reason: PAIN LEVEL 1-5 Last Admin: 07/23/19 10:07 Dose: 650 mg Documented by: Amlodipine Besylate (Norvasc -) 10 mg PO DAILY [facility] Last Admin: 07/24/19 09:18 Dose: 10 mg Documented by: Aspirin (Asa -) 81 mg PO DAILY [facility] Last Admin: 07/24/19 09:17 Dose: 81 mg Documented by: Carvedilol (Coreg -) 3.125 mg PO DAILY [facility] Last Admin: 07/24/19 09:17 Dose: 3.125 mg Documented by: Clopidogrel Bisulfate (Plavix -) 75 mg PO DAILY [facility] Last Admin: 07/24/19 09:17 Dose: 75 mg Documented by: Ergocalciferol (Drisdol -) 50,000 unit PO Fr@1000 [facility] Gabapentin (Neurontin -) 200 mg PO TID [facility] Last Admin: 07/24/19 13:04 Dose: 200 mg Documented by: Heparin Sodium (Porcine) (Heparin -) 5,000 unit SQ TID [facility] Last Admin: 07/24/19 13:04 Dose: 5,000 unit Documented by: Insulin Aspart (Novolog Vial Sliding Scale -) 1 vial SQ [facility]; Protocol Last Admin: 07/24/19 11:12 Dose: 8 units Documented by: Insulin Detemir (Levemir Vial) 34 units SQ DAILY@0700 [facility] Last Admin: 07/24/19 07:57 Dose: 34 units Documented by: Rosuvastatin Calcium (Crestor -) 10 mg PO [facility] Last Admin: 07/23/19 21:45 Dose: 10 mg Documented by: Tizanidine HCl (Tizanidine Hcl) 2 mg PO DAILY [facility] Last Admin: 07/24/19 09:19 Dose: 2 mg Documented by: - Objective Vital Signs: Vital Signs Temperature 98.8 F 07/24/19 09:30 Pulse Rate 60 07/24/19 09:30 Respiratory Rate 20 07/24/19 09:30 Blood Pressure 141/60 07/24/19 09:30 O2 Sat by Pulse Oximetry (%) 95 07/24/19 08:18 Constitutional: Yes: Calm Eyes: Yes: Conjunctiva Clear HENT: Yes: Atraumatic Neck: Yes: Supple Cardiovascular: Yes: S1, S2 Respiratory: Yes: CTA Bilaterally Gastrointestinal: Yes: Normal Bowel Sounds, Soft Genitourinary: Yes: WNL Musculoskeletal: Yes: WNL Edema: No Neurological: Yes: Oriented Psychiatric: Yes: Oriented Labs: CBC, BMP 07/23/19 06:30 07/24/19 07:28 INR, PTT INR 0.89 (0.83-1.09) 07/18/19 10:30 Problem List - Problems (1) [id number] kidney injury Code(s): N17.9 - ACUTE KIDNEY FAILURE, UNSPECIFIED; N18.9 - CHRONIC KIDNEY DISEASE, UNSPECIFIED Qualifiers: Acute renal failure type: unspecified Chronic kidney disease stage: unspecified stage Qualified Code(s): N17.9 - Acute kidney failure, un specified; N18.9 - Chronic kidney disease, unspecified Assessment/Plan Current Medications Generic Name Dose Route Start Last Admin Trade Name Freq PRN Reason Stop Dose Admin Acetaminophen 650 mg 07/21/19 15:12 07/23/19 10:07 Tylenol - PO 650 mg Q6H PRN Administration PAIN LEVEL 1-5 Amlodipine Besylate 10 mg 07/22/19 10:00 07/24/19 09:18 Norvasc - PO 10 mg DAILY JASMYN Administration Aspirin 81 mg 07/19/19 10:00 07/24/19 09:17 Asa - PO 81 mg DAILY JASMYN Administration Carvedilol 3.125 mg 07/19/19 10:00 07/24/19 09:17 Coreg - PO 3.125 mg DAILY JASMYN Administration Clopidogrel Bisulfate 75 mg 07/19/19 10:00 07/24/19 09:17 Plavix - PO 75 mg DAILY JASMYN Administration Ergocalciferol 50,000 unit 07/25/19 10:00 Drisdol - PO Fr@1000 JASMYN Gabapentin 200 mg 07/18/19 22:00 07/24/19 13:04 Neurontin - PO 200 mg TID JASMYN Administration Heparin Sodium (Porcine) 5,000 unit 07/21/19 22:00 07/24/19 13:04 Heparin - SQ 5,000 unit TID JASMYN Administration Insulin Aspart 1 vial 07/18/19 22:00 07/24/19 11:12 Novolog Vial Sliding Scale - SQ 8 units ACHS JASMYN Administration Protocol Insulin Detemir 34 units 07/21/19 16:50 07/24/19 07:57 Levemir Vial SQ 34 units DAILY@0700 JASMYN Administration Rosuvastatin Calcium 10 mg 07/23/19 22:00 07/23/19 21:45 Crestor - PO 10 mg HS JASMYN Administration Tizanidine HCl 2 mg 07/19/19 10:00 07/24/19 09:19 Tizanidine Hcl PO 2 mg DAILY JASMYN Administration Impression 1. ULISES on CKD 2. CKD stage 3 3. Renal Cyst 4. Diarrhea r/o colitis 5. Hyperkalemia improved 6. proteinuria Plan - cont to monitor renal function - will need workup as outpt - explained to pt that she should keep her doctors appointments - pt to follow with Dr Acharya - guillermo ruiz for positive catarina - check prt to protective services officer ratio - follow spep
[2019-07-24] MEDS: ACETAMINOPHEN 325 MG TABLET (FP) PO PRN (20:45)
[2019-07-24] MEDS: ROSUVASTATIN CA 10 MG TABLET (FP) PO SCH (21:02)
[2019-07-25] MEDS: GABAPENTIN 100 MG CAPSULE PO SCH ×2 (06:25→13:18)
[2019-07-25] MEDS: HEPARIN NA (PORCINE) 5,000 UNITS/ML 1ML VIAL SQ SCH ×2 (06:25→13:17)
[2019-07-25] MEDS: INSULIN SLIDING SCALE (NOVOLOG) 1 VIAL SQ SCH ×2 (06:29→11:43)
[2019-07-25] MEDS: INSULIN (LEVEMIR) 100 UNITS/ML UNITS SQ SCH (06:30)
[2019-07-25 08:45] LABS: ALBUMIN 2.6 g/dl (3.4-5.0); BILIRUBIN,TOTAL 0.8 mg/dL (0.2-1); BLOOD UREA NITROGEN 55.2 mg/dL (7-18); CALCIUM 9.2 mg/dL (8.5-10.1); CREATININE 2.5 mg/dL (0.55-1.3); POTASSIUM 4.3 mmol/L (3.5-5.1); TOT PROT 5.8 g/dl (6.4-8.2)
[2019-07-25] MEDS: CARVEDILOL 3.125 MG TABLET (FP) PO SCH (09:45)
[2019-07-25] MEDS: ASPIRIN 81 MG CHEWABLE TABLETS PO SCH (09:45)
[2019-07-25] MEDS: amLODIPine BESYLATE 10 MG TABLET (FP) PO SCH (09:47)
[2019-07-25] MEDS: CLOPIDOGREL BISULFATE 75 MG TABLET (FP) PO SCH (09:47)
[2019-07-25] MEDS: TIZANIDINE HCL 2 MG TABLET PO SCH (09:48)
[2019-07-25] MEDS ORDERED: ERGOCALCIFEROL (VIT D2) 50,000 UNIT (1.25 MG) CAPSULE PO SCH (10:00)
[2019-07-25] MEDS ORDERED: INSULIN (NOVOLOG) ASPART 100 UNITS/ML 10ML VIAL ONE (11:42)
--- NOTE | 2019-07-25 15:26 | PN ---
Progress Note, Physician History of Present Illness: Pt seen and examined at bedside. She is awake and alert. She denies shortness of breath. - Current Medication List Current Medications: Active Medications Acetaminophen (Tylenol -) 650 mg PO Q6H PRN PRN Reason: PAIN LEVEL 1-5 Last Admin: 07/24/19 20:45 Dose: 650 mg Documented by: Amlodipine Besylate (Norvasc -) 10 mg PO DAILY [facility] Last Admin: 07/25/19 09:47 Dose: 10 mg Documented by: Aspirin (Asa -) 81 mg PO DAILY [facility] Last Admin: 07/25/19 09:45 Dose: 81 mg Documented by: Carvedilol (Coreg -) 3.125 mg PO DAILY [facility] Last Admin: 07/25/19 09:45 Dose: 3.125 mg Documented by: Clopidogrel Bisulfate (Plavix -) 75 mg PO DAILY [facility] Last Admin: 07/25/19 09:47 Dose: 75 mg Documented by: Ergocalciferol (Drisdol -) 50,000 unit PO Fr@1000 [facility] Last Admin: 07/25/19 09:45 Dose: 50,000 unit Documented by: Gabapentin (Neurontin -) 200 mg PO TID [facility] Last Admin: 07/25/19 13:18 Dose: 200 mg Documented by: Heparin Sodium (Porcine) (Heparin -) 5,000 unit SQ TID [facility] Last Admin: 07/25/19 13:17 Dose: 5,000 unit Documented by: Insulin Aspart (Novolog Vial Sliding Scale -) 1 vial SQ [facility]; Protocol Last Admin: 07/25/19 11:43 Dose: 8 units Documented by: Insulin Detemir (Levemir Vial) 34 units SQ DAILY@0700 [facility] Last Admin: 07/25/19 06:30 Dose: 34 units Documented by: Rosuvastatin Calcium (Crestor -) 10 mg PO HS [facility] Last Admin: 07/24/19 21:02 Dose: 10 mg Documented by: Tizanidine HCl (Tizanidine Hcl) 2 mg PO DAILY [facility] Last Admin: 07/25/19 09:48 Dose: 2 mg Documented by: - Objective Vital Signs: Vital Signs Temperature 97.7 F 07/25/19 06:38 Pulse Rate 59 L 07/25/19 06:38 Respiratory Rate 20 07/25/19 08:00 Blood Pressure 136/50 L 07/25/19 06:38 O2 Sat by Pulse Oximetry (%) 95 07/24/19 21:00 Constitutional: Yes: Calm Eyes: Yes: Conjunctiva Clear HENT: Yes: Atraumatic Cardiovascular: Yes: S1, S2 Respiratory: Yes: CTA Bilaterally Gastrointestinal: Yes: Soft Genitourinary: Yes: WNL Musculoskeletal: Yes: WNL Edema: No Neurological: Yes: Oriented Psychiatric: Yes: Oriented Labs: CBC, BMP 07/23/19 06:30 07/25/19 07:32 INR, PTT INR 0.89 (0.83-1.09) 07/18/19 10:30 Problem List - Problems (1) [id number] kidney injury Code(s): N17.9 - ACUTE KIDNEY FAILURE, UNSPECIFIED; N18.9 - CHRONIC KIDNEY DISEASE, UNSPECIFIED Qualifiers: Acute renal failure type: unspecified Chronic kidney disease stage: unspecified stage Qualified Code(s): N17.9 - Acute kidney failure, unspecified; N18.9 - Chronic kidney disease, unspecified Assessment/Plan Current Medications Generic Name Dose Route Start Last Admin Trade Name Freq PRN Reason Stop Dose Admin Acetaminophen 650 mg 07/21/19 15:12 07/24/19 20:45 Tylenol - PO 650 mg Q6H PRN Administration PAIN LEVEL 1-5 Amlodipine Besylate 10 mg 07/22/19 10:00 07/25/19 09:47 Norvasc - PO 10 mg DAILY JASMYN Administration Aspirin 81 mg 07/19/19 10:00 07/25/19 09:45 Asa - PO 81 mg DAILY JASMYN Administration Carvedilol 3.125 mg 07/19/19 10:00 07/25/19 09:45 Coreg - PO 3.125 mg DAILY JASMYN Administration Clopidogrel Bisulfate 75 mg 07/19/19 10:00 07/25/19 09:47 Plavix - PO 75 mg DAILY JASMYN Administration Ergocalciferol 50,000 unit 07/25/19 10:00 07/25/19 09:45 Drisdol - PO 50,000 unit Fr@1000 JASMYN Administration Gabapentin 200 mg 07/18/19 22:00 07/25/19 13:18 Neurontin - PO 200 mg TID JASMYN Administration Heparin Sodium (Porcine) 5,000 unit 07/21/19 22:00 07/25/19 13:17 Heparin - SQ 5,000 unit TID JASMYN Administration Insulin Aspart 1 vial 07/18/19 22:00 07/25/19 11:43 Novolog Vial Sliding Scale - SQ 8 units ACHS JASMYN Administration Protocol Insulin Detemir 34 units 07/21/19 16:50 07/25/19 06:30 Levemir Vial SQ 34 units DAILY@0700 JASMYN Administration Rosuvastatin Calcium 10 mg 07/23/19 22:00 07/24/19 21:02 Crestor - PO 10 mg HS JASMYN Administration Tizanidine HCl 2 mg 07/19/19 10:00 07/25/19 09:48 Tizanidine Hcl PO 2 mg DAILY JASMYN Administration Impression 1. ULISES on CKD 2. CKD stage 3 3. Renal Cyst 4. Diarrhea r/o colitis 5. Hyperkalemia improved 6. proteinuria Plan - pt will need outpt follow up - volume status stable - pt to follow with Dr Acharya - guillermo ruiz for positive catarina - outpt proteinuria workup
--- NOTE | 2019-07-25 15:27 | PN ---
Progress Note (short form) - Note Progress Note: s: no cp sob palps dizzy Current Medications Generic Name Dose Route Start Last Admin Trade Name Freq PRN Reason Stop Dose Admin Acetaminophen 650 mg 07/21/19 15:12 07/24/19 20:45 Tylenol - PO 650 mg Q6H PRN Administration PAIN LEVEL 1-5 Amlodipine Besylate 10 mg 07/22/19 10:00 07/25/19 09:47 Norvasc - PO 10 mg DAILY JASMYN Administration Aspirin 81 mg 07/19/19 10:00 07/25/19 09:45 Asa - PO 81 mg DAILY JASMYN Administration Carvedilol 3.125 mg 07/19/19 10:00 07/25/19 09:45 Coreg - PO 3.125 mg DAILY JASMYN Administration Clopidogrel Bisulfate 75 mg 07/19/19 10:00 07/25/19 09:47 Plavix - PO 75 mg DAILY JASMYN Administration Ergocalciferol 50,000 unit 07/25/19 10:00 07/25/19 09:45 Drisdol - PO 50,000 unit Fr@1000 JASMYN Administration Gabapentin 200 mg 07/18/19 22:00 07/25/19 13:18 Neurontin - PO 200 mg TID JASMYN Administration Heparin Sodium (Porcine) 5,000 unit 07/21/19 22:00 07/25/19 13:17 Heparin - SQ 5,000 unit TID JASMYN Administration Insulin Aspart 1 vial 07/18/19 22:00 07/25/19 11:43 Novolog Vial Sliding Scale - SQ 8 units ACHS JASMYN Administration Protocol Insulin Detemir 34 units 07/21/19 16:50 07/25/19 06:30 Levemir Vial SQ 34 units DAILY@0700 JASMYN Administration Rosuvastatin Calcium 10 mg 07/23/19 22:00 07/24/19 21:02 Crestor - PO 10 mg HS JASMYN Administration Tizanidine HCl 2 mg 07/19/19 10:00 07/25/19 09:48 Tizanidine Hcl PO 2 mg DAILY JASMYN Administration Vital Signs Period Temp Pulse Resp BP Sys/Mckeon Pulse Ox Last 24 Hr 97.7 F-98.0 F 58-64 20-20 132-140/50-64 95 nad no jvd rrr s1s2 no mrg cta bl nl eff awake no le e/c/c abd nt nd pos bs no jaundice diaphoresis CBC, BMP 07/23/19 06:30 07/25/19 07:32 Imaging - Results Chest X-ray: Image Reviewed Cat Scan: Report Reviewed EKG: Image Reviewed echo 07/2019: lvh, nl lv/rv, lae, mild as Assessment/Plan IMP: Chronic diastolic CHF CAD s/p CABG (ROSENBERG to LAD, SVG to D1 2000; PCI 2013 (patent grafts at that time) History of TIA HTN Acute on chronic renal failure Mild DM REC: 1. Chronic diastolic CHF: -as of office visit 07/15, was off Lasix due to CKD and worsened renal fxn -Since 07/18 (admission), lasix held and hydrated with improvement in creatinine. -vol stable presently -cont to hold lasix 2. CAD: s/p CABG, PCI (last 2013) -Enzymes negative x 2; no anginal sx -Cont Plavix -Cont Crestor 40 -Cont Coreg 3. History of TIA: -Cont statin and Plavix 4. HTN: at goal, < 150/90 -cont coreg. No NOY/ARB due to acute on chronic CKD 5. Acute on chronic renal failure: -as per renal 6. : stable, mild on echo here
[2019-07-25 15:50] VITALS: BP 107/43; PULSE 53; TEMP 98
== END 2019-07-25 16:25 | disposition home or self-care (01) | DRG 683 ==
LOC: JER 10:10 → SUPCPDRO 10:10 → JERBED 16:02 → J8W 21:28
PROVIDERS: ADMIT Internal Medicine
DX: N17.9 Acute kidney failure, unspecified (principal); I13.0 Hypertensive heart and chronic kidney disease with heart failure and stage 1 through stage 4 chronic kidney disease, or unspecified chronic kidney disease; I50.32 Chronic diastolic (congestive) heart failure; E11.51 Type 2 diabetes mellitus with diabetic peripheral angiopathy without gangrene; E66.01 Morbid (severe) obesity due to excess calories; Z68.37 Body mass index [BMI] 37.0-37.9, adult; I25.10 Atherosclerotic heart disease of native coronary artery without angina pectoris; N18.4 Chronic kidney disease, stage 4 (severe); E11.21 Type 2 diabetes mellitus with diabetic nephropathy; Z22.39 Carrier of other specified bacterial diseases; Z95.1 Presence of aortocoronary bypass graft; Z95.5 Presence of coronary angioplasty implant and graft; I35.0 Nonrheumatic aortic (valve) stenosis; R19.7 Diarrhea, unspecified; E87.5 Hyperkalemia; K21.9 Gastro-esophageal reflux disease without esophagitis; M17.0 Bilateral primary osteoarthritis of knee; E78.5 Hyperlipidemia, unspecified
CPT/HCPCS: 36415; 71045-TC-FY; 72131-TC; 74176-TC; 76775-TC; 80048; 80053; 81003; 82010; 82550; 82565; 82570; 82803; 82962; 83605; 83690; 83735; 83880; 84100; 84155; 84156; 84165; 84300; 84484; 85025; 85027; 85610; 85730; 86038; 86850; 86900; 86901; 87040; 87086; 87186; 87205; 93005; 93010; 93306-TC; 97116-GP; 97161-GP; 99285-25; J0131; J1644; J7030; Q9967

== ENCOUNTER 2019-12-02 13:45 | Inpatient (IN) | payer OTHER, MEDICARE ==
--- NOTE | 2019-12-02 14:03 | PDOC ---
History of Present Illness - General Chief Complaint: Edema Stated Complaint: Edema Time Seen by Provider: 12/02/19 14:02 - History of Present Illness Initial Comments: Geeta Ramos is an 84 yo F w a PMH of HTN, HLD, IDDM, TIA, CAD s/p CABG/PCIs, diastolic CHFpEF, PVD, CKD, OA, and GERD BIBA from home with respiratory problem. The patient is a poor historian and does not provide much history. She accompanied by her aid who also doesn't speak Mongolian. Ladies Suit Operator was ordered. She stated that she fell this morning with no LOC, denies hitting her head. She has SOB 2 days ago, happened suddenly. 25 days ago, she noticed bilateral leg edema, and it's getting worse. She is now in a wheelchair. Her lower legs are swollen and painful. She also endorses dysuria. GENERAL/CONSTITUTIONAL: No fever or chills. No weakness. HEAD, EYES, EARS, NOSE AND THROAT: No change in vision. No ear pain or discharge. No sore throat. CARDIOVASCULAR: No chest pain or shortness of breath RESPIRATORY: Occasional cough, no wheezing, or hemoptysis. GASTROINTESTINAL: No nausea, vomiting, diarrhea or constipation. GENITOURINARY: Dysuria, no frequency, or change in urination. MUSCULOSKELETAL: No joint or muscle swelling or pain. No neck or back pain. SKIN: No rash NEUROLOGIC: No headache, vertigo, loss of consciousness. Change in strengt h/sensation. ENDOCRINE: No increased thirst. No abnormal weight change HEMATOLOGIC/LYMPHATIC: No anemia, easy bleeding, or history of blood clots. ALLERGIC/IMMUNOLOGIC: No hives or skin allergy. PCP: Dr. Hua PSH: 4 stents placed, cholecystectomy, hysterectomy Allergies: codeine, orange juice Social Hx: Denies smoking, drinking, or other substance usage. PE GENERAL: Awake, alert, and fully oriented, in no acute distress HEAD: No signs of trauma, normocephalic, atraumatic EYES: PERRLA, EOMI, sclera anicteric, conjunctiva clear ENT: Auricles normal inspection, hearing grossly normal, nares patent, oropharynx clear without exudates. Moist mucosa NECK: Normal ROM, supple, no lymphadenopathy, JVD, or masses LUNGS: No distress, speaks full sentences, clear to auscultation bilaterally HEART: Regular rate and rhythm, normal S1 and S2, no murmurs, rubs or gallops, peripheral pulses normal and equal bilaterally. ABDOMEN: Soft, nontender, normoactive bowel sounds. No guarding, no rebound. No masses EXTREMITIES : Normal inspection, Normal range of motion, no edema. No clubbing or cyanosis. NEUROLOGICAL: Cranial nerves II through XII grossly intact. Normal speech, normal gait, no focal sensorimotor deficits SKIN: Warm, Dry, normal turgor, no rashes or lesions noted Past History - Medical History Allergies/Adverse Reactions: Allergies Allergy/AdvReac Type Severity Reaction Status Date / Time codeine [Codeine] Allergy Verified 12/02/19 14:01 orange juice Allergy Verified 12/02/19 14:01 Home Medications: Ambulatory Orders Clopidogrel Bisulfate [Plavix] 75 mg PO DAILY 02/08/18 Carvedilol 3.125 mg PO BID 05/15/19 Ergocalciferol (Vitamin D2) [Vitamin D2] 1 cap PO WEEKLY 05/16/19 Gabapentin 100 mg PO TID 05/16/19 Aspirin [ASA -] 81 mg PO DAILY tab.chew 05/22/19 Amlodipine Besylate 5 mg PO DAILY 12/02/19 Folic Acid 1 mg PO DAILY 12/02/19 Lisinopril [Zestril] 2.5 mg PO DAILY 12/02/19 Rosuvastatin Calcium [Crestor] 40 mg PO HS 12/02/19 Cyanocobalamin Vit B-12 Inj. [Vitamin B12 Injection -] 1 ml MONTHLY 12/04/19 Insulin (Novolog) [Novolog -] 200 units TID 12/04/19 Insulin Detemir [Levemir Flextouch] 34 units TID 12/04/19 Anemia: Yes Asthma: No Cancer: No Cardiac Disorders: Yes (ID, CAD s/p CABG + PCI 2013, Diastolic CHF, PVD) CVA: Yes (CVA 22 YRS AGO - (R)SIDED WEAKNESS) COPD: No CHF: Yes Dementia: No Diabetes: Yes (IDDM) GI Disorders: Yes (GERD) Disorders: Yes (CHRONIC UTI'S) HTN: Yes Hypercholesterolemia: Yes Liver Disease: No Seizures: No Thyroid Disease: No - Surgical History Abdominal Surgery: No Appendectomy: No Cardiac Surgery: Yes ([facility] 2011, ENDARDERECTOMY, 2 STENTS) Cholecystectomy: Yes Lung Surgery: No Neurologic Surgery: No Orthopedic Surgery: No - Immunization History Immunization Up to Date: No - Psycho-Social/Smoking History Smoking Status: No Smoking History: Unknown if ever smoked Have you smoked in the past 12 months: No Number of Cigarettes Smoked Daily: 0 - Substance Abuse Hx (Audit-C & DAST Scrn) How often the patient has a drink containing alcohol: Never How often the patient has six or more drinks on one occasion: Never Score: In Men: 4 or > Positive; In Women: 3 or > Positive: 0 Screen Result (Pos requires Nsg. Audit-10AR): Negative In the last yr the pt used illegal drug/Rx for NonMed reason: No Score: Yes response is considered Positive: 0 Screen Result (Positive result requires Nsg. DAST-10): Negative *Physical Exam - Vital Signs Last Vital Signs Temp Pulse Resp BP Pulse Ox 55 L 18 127/65 96 12/02/19 13:49 12/02/19 13:49 12/02/19 13:49 12/02/19 13:49 ED Treatment Course - LABORATORY CBC & Chemistry Diagram: 12/04/19 09:58 12/04/19 09:58 Medical Decision Making - Medical Decision Making 12/02/19 16:42 Patient came to the ED with SOB. We are doing a whole workup for SOB, targeting the cardio route since she has so many cardio comorbidities : CHFpEF, HTN, HLM. CBC, CMP, trop, BMP, Xray, EKG, UA/UC BMP is elevated to 1200+ orthopnea, hx of HF (last EF was 65% a couple months ago) + bilateral leg swelling+ not on lasik +SOB. Ad[facility] to [facility]@ 16:47 12/02/19 17:10 Dr schumacher will be the admitting attending. Discharge - Discharge Information Problems reviewed: Yes Clinical Impression/Diagnosis: CHF (congestive heart failure) Qualifiers: Heart failure type: diastolic Heart failure chronicity: acute on chronic Qualified Code(s): I50.33 - Acute on chronic diastolic (congestive) heart failure Condition: Stable - Admission Yes - Follow up/Referral - Patient Discharge Instructions - Post Discharge Activity
[2019-12-02 14:06] VITALS: BMI 37.8
--- NOTE | 2019-12-02 15:16 | PDOC ---
Documentation entered by Adilene Nava SCRIBE, acting as scribe for Charmaine Kolb MD. Charmaine Kolb MD: This documentation has been prepared by the Elijah james Xhesika, SCRIBE, under my direction and personally reviewed by me in its entirety. I confirm that the documentation accurately reflects all work, treatment, procedures, and medical decision making performed by me. Attending Attestation - Resident Resident Name: Yassine Edouard - ED Attending Attestation I have performed the following: I have examined & evaluated the patient, The case was reviewed & discussed with the resident, I agree w/resident's findings & plan, Exceptions are as noted - HPI HPI: 12/02/19 14:06 The patient is a 84y/o F with a PMH of HTN, HLD, IDDM, TIA, CAD s/p CABG/PCIs, diastolic CHFpEF, PVD, CKD, OA, and GERD who presents to the ED BIBA for SOB x2days. Daughter states the patient endorsed a witnessed fall this morning and felt weak afterwards. Family denies any LOC or head trauma. Family called pt's doctor who advised them to bring the pt to the ED. Per EMS, they found the patient sitting on a wheelchair when they arrived at the scene complaining of SOB/ respirations. Per family, the patient has been endorsing BLE edema [id number] and since then it has been more difficult for her to ambulate on her own. Pt denies any chest pain, orthopnea, abdominal pain, fevers, chills, N/V/D. Denies any URI symptoms. Allergies: codeine, orange juice PSH: 4 stents placed, cholecystectomy, hysterectomy PCP: Deric Osuna - Physicial Exam PE: HR 55, BP 127/65 (MAP 85), RR 18, Wt 84.8 kg, SpO2 96% on RA GENERAL: elderly, nontoxic-appearing, pleasant, non-Ivorian speaking, no distress, answers questions appropriately, accompanied by oracle apex developer at bedside who assists in history but also is not primarily Ivorian, family states Pt is A/O per baseline and mentating at baseline HEENT: PERRLA, EOMI, moist mucous membranes NECK/BACK: no midline ttp, no spinal stepoff or deformity, no hematoma, full ROM, neck supple CARDIOVASCULAR: regular rate/rhythm, no MGR, strong peripheral pulses, capillary refill <2 seconds, extremities wwp, 1+ pitting edema BLE LUNGS/RESPIRATORY: no respiratory distress, CTAB GI/ABDOMEN: symmetric [id number], normoactive BS, soft, no ttp, no midline pulsatile masses : no CVA tenderness MSK/EXTREMITIES: no acute-appearing muscle atrophy, no acute deformity DERM/SKIN: warm and dry, no pallor, no jaundice, no rash, no pathologic- appearing bruising, no skin breakdown, no cuts, no lesions NEUROLOGICAL: GCS 15, CN II-XII grossly intact, 5/5 strength proximally and distally, no facial droop - Medical Decision Making 84YOF with h/o CHF and CKD who p/w SOB, PND and orthopnea. HR 55, BP 127/65 (MAP 85), RR 18, Wt 84.8 kg, SpO2 96% on RA DDX IBNLT: Most likely CHF exacerbation or ULISES on CKD, less likely significant pulmonary edema given the fact that the patient is fairly well-appearing at rest while sitting up. Less likely COPD, asthma, or other obstructive lung disease as patient and family deny any known history of this. Possible component of PNA/bronchitis, UTI, or other infectious process as an underlying cause, and this will be assessed. Also considered on the differential are anemia, ACS, PE, and malignancy however these are less likely, but will get appropriate w/u to assess for these possibilities as well. W/U ordered: Labs as noted below, EKG CXR Laboratory Tests 12/02/19 12/02/19 12/02/19 14:17 14:17 16:20 WBC 9.6 RBC 3.40 L Hgb 10.3 L Hct 32.0 L MCV 93.9 MCH 30.2 MCHC 32.2 RDW 15.2 Plt Count 284 MPV 10.6 Sodium 138 Potassium 5.7 H Chloride 107 Carbon Dioxide 24 Anion Gap 7 L BUN 54.4 H Creatinine 2.7 H Est GFR (CKD-EPI)AfAm 18.03 Est GFR (CKD-EPI)NonAf 15.56 POC Glucometer 154 Random Glucose 231 H Calcium 8.4 L Total Bilirubin 0.3 AST 25 ALT 27 Alkaline Phosphatase 78 Creatine Kinase 43 Troponin I 0.02 B-Natriuretic Peptide 1243.1 H Total Protein 6.6 Albumin 3.1 L Urine Color Urine Appearance Urine pH Ur Specific [place] Urine Protein Urine Glucose (UA) Urine Ketones Urine Blood Urine Nitrite Urine Bilirubin Urine Urobilinogen Ur Leukocyte Esterase Urine WBC (Auto) Urine RBC (Auto) Urine Casts (Auto) U Epithel Cells (Auto) Urine Bacteria (Auto) COVID-19 (MARIAJOSE) 12/02/19 12/02/19 16:44 16:44 WBC RBC Hgb Hct MCV MCH MCHC RDW Plt Count MPV Sodium Potassium Chloride Carbon Dioxide Anion Gap BUN Creatinine Est GFR (CKD-EPI)AfAm Est GFR (CKD-EPI)NonAf POC Glucometer Random Glucose Calcium Total Bilirubin AST ALT Alkaline Phosphatase Creatine Kinase Troponin I B-Natriuretic Peptide Total Protein Albumin Urine Color Yellow Urine Appearance Turbid Urine pH 6.0 Ur Specific [place] 1.015 Urine Protein 2+ H Urine Glucose (UA) 2+ H Urine Ketones Negative Urine Blood 2+ H Urine Nitrite Negative Urine Bilirubin Negative Urine Urobilinogen 0.2 Ur Leukocyte Esterase 2+ H Urine WBC (Auto) 2713 Urine RBC (Auto) 85 Urine Casts (Auto) 2 U Epithel Cells (Auto) 8 Urine Bacteria (Auto) >10,000 COVID-19 (MARIAJOSE) Not detected CHF, CKD, UTI, baseline anemia, hyperkalemia on w/u. No e/o florid pulmonary edema or vascular congestion on CXR, sternal wires noted. The Pt is unsafe for discharge at this time. She requires further hospital observation, workup, and treatment. Dr. Edouard completing admission procedure from the ED side. Heart Score/ECG Review #1 Sinus rhythm, rate 53, normal axis and intervals, TWI in I and aVL same as prior EKG, poor R wave progression, no additional ST-T changes Discharge - Discharge Information Problems reviewed: Yes Clinical Impression/Diagnosis: Hyperkalemia CHF (congestive heart failure) Qualifiers: Heart failure type: diastolic Heart failure chronicity: acute on chronic Qualified Code(s): I50.33 - Acute on chronic diastolic (congestive) heart failure CKD (chronic kidney disease) Qualifiers: Chronic kidney disease stage: unspecified stage Qualified Code(s): N18.9 - Chronic kidney disease, unspecified UTI (urinary tract infection) Qualifiers: Urinary tract infection type: site unspecified Hematuria presence: without hematuria Qualified Code(s): N39.0 - Urinary tract infection, site not specified Condition: Guarded - Admission Yes - Follow up/Referral - Patient Discharge Instructions - Post Discharge Activity
[2019-12-02 15:18] LABS: HEMOGLOBIN 10.3 GM/dL (10.7-15.3); MCH 30.2 pg (25.7-33.7); MCHC 32.2 g/dl (32.0-36.0); MEAN CELL VOLUME 93.9 fl (80-96); MEAN PLT VOLUME 10.6 fl (7.5-11.1); PLATELET COUNT 284 K/MM3 (134-434); RDW 15.2 % (11.6-15.6); WHITE BLOOD COUNT 9.6 K/mm3 (4.0-10.0)
[2019-12-02 15:44] LABS: ALBUMIN 3.1 g/dl (3.4-5.0); BILIRUBIN,TOTAL 0.3 mg/dL (0.2-1); BLOOD UREA NITROGEN 54.4 mg/dL (7-18); CALCIUM 8.4 mg/dL (8.5-10.1); CREATININE 2.7 mg/dL (0.55-1.3); POTASSIUM 5.7 mmol/L (3.5-5.1); TOT PROT 6.6 g/dl (6.4-8.2)
[2019-12-02] MEDS ORDERED: INSULIN REGULAR HUMAN 100 UNITS/ML *VIAL IVPUSH ONE (15:48)
[2019-12-02] MEDS ORDERED: DEXTROSE 50%-WATER - 25 GM/50 ML VIAL IVPUSH ONE (15:48)
[2019-12-02] MEDS ORDERED: CALCIUM GLUCONATE 10% - 1,000 MG/10 ML VIAL IVPUSH ONE (15:48)
[2019-12-02 16:08] LABS: N-TERMINAL BNP 1243.1 pg/ml (5-450)
[2019-12-02] MEDS ORDERED: CALCIUM GLUCONATE 10% - 1,000 MG/10 ML VIAL ONE (16:10)
[2019-12-02] MEDS ORDERED: INSULIN REGULAR HUMAN 100 UNITS/ML *VIAL ONE (16:12)
[2019-12-02] MEDS ORDERED: FUROSEMIDE 40 MG/4 ML INJECTABLE VIAL ONE (17:20)
[2019-12-02] MEDS: FUROSEMIDE 40 MG/4 ML INJECTABLE VIAL IVPUSH ONE ×2 (17:21→17:40)
[2019-12-02 17:36] LABS: EPI CELLS 8 /uL (0-25.1); HYALINE CASTS 2 /uL (0-3.1); URINE APPEARANCE TURBID; URINE BILIRUBIN NEGATIVE (NEGATIVE); URINE COLOR YELLOW; URINE GLUCOSE (UA) 2+ (NEGATIVE); URINE KETONE NEGATIVE (NEGATIVE); URINE LEUK ESTERASE 2+ (NEGATIVE); URINE NITRITE NEGATIVE (NEGATIVE); URINE PROTEIN 2+ (NEGATIVE); URINE RBC 85 /uL (0-23.9); URINE UROBILINOGEN 0.2 mg/dL (0.2-1.0); URINE WBC 2713 /uL (0-25.8)
--- NOTE | 2019-12-02 18:00 | HP ---
CHIEF COMPLAINT: sob PCP: Dr. Hua HISTORY OF PRESENT ILLNESS: [employer] #[id number] used. 84 Northern Irish-speaking female w/ pmhx of HTN, HLD, IDDM, TIA, CAD s/p CABG/PCIs, diastolic CHFpEF, PVD, CKD, OA, and GERD presents in the ED after being sent from her PCP's office for sob. Pt is a poor historian and often is tangential when asked specific questions during interview. Per ED, pt was at PCP's office today complaining of 1-2 days of sob, and as a result, PCP sent her to the hospital to for treatment of CHF exacerbation with IV Lasix. Although it was difficult to elicit her primary complaint, she did report progressively worsening shortness of breath as well as worsening b/l LE edema. States she is compliant with her meds at home as it is administered by her INSTRUCTIONAL SUPPORT TECHNICIAN on a daily basis. Admits to dyspnea on exertion as well as orthopnea. Additionally, she complains of a "choking" feeling that disrupts her sleep at night. Denies fever/chills, chest pain, abd pain, urinary/bowel symptoms. States she did have 1 episode of vomiting yesterday. Denies any sick contacts. ER course was notable for: (1) VS wnl, H/H 10.3/32, K 5.7, BUN/Cr 54.4/2.7, Glu 231, BNP ~1200. UA 2+ pro, 2+Glu, 2+ blood, 2+ LE, WBC 2713 (2) UCx pending, CXR showed no acute process, EKG showed sinus jermain, HR 53, QTc 414 ms (3) Calcium gluconate, IV insulin 10U, D50 given for hyperkalemia Recent Travel: Denies PAST MEDICAL HISTORY: As per HPI PAST SURGICAL HISTORY: CABG/PCI s/p 4 stents cholecystectomy hysterectomy Social History: Smoking: Denies Alcohol: Denies Drugs: Denies Lives at home with , has INSTRUCTIONAL SUPPORT TECHNICIAN Allergies codeine [Codeine] Allergy (Verified 12/02/19 14:01) orange juice Allergy (Verified 12/02/19 14:01) HOME MEDICATIONS: Home Medications Medication Instructions Recorded Clopidogrel Bisulfate [Plavix] 75 mg PO DAILY 02/08/18 Atorvastatin Ca [Lipitor] 80 mg PO HS 05/15/19 Carvedilol 3.125 mg PO BID 05/15/19 Amlodipine Besylate 10 mg PO DAILY 05/16/19 Ergocalciferol (Vitamin D2) 1 cap PO WEEKLY 05/16/19 [Vitamin D2] Gabapentin 200 mg PO TID 05/16/19 Tizanidine HCl 2 mg PO DAILY 05/16/19 Amlodipine Besylate [Norvasc -] 10 mg PO DAILY tablet 05/22/19 Aspirin [ASA -] 81 mg PO DAILY tab.chew 05/22/19 Insulin (Levemir) [Levemir Vial] 30 units SQ DAILY@0700 units 05/22/19 Insulin Sliding Scale [Novolog 1 vial SQ TIDAC units 05/22/19 Vial Sliding Scale -] REVIEW OF SYSTEMS CONSTITUTIONAL: Absent: fever, chills, diaphoresis, generalized weakness, malaise, loss of appetite, weight change HEENT: Absent: rhinorrhea, nasal congestion, throat pain, throat swelling, difficulty swallowing, mouth swelling, ear pain, eye pain, visual changes CARDIOVASCULAR: Absent: chest pain, syncope, palpitations, irregular heart rate, lightheadedness, peripheral edema RESPIRATORY: shortness of breath, dyspnea with exertion, orthopnea Absent: cough, wheezing, stridor, hemoptysis GASTROINTESTINAL: vomiting Absent: abdominal pain, abdominal distension, nausea, diarrhea, constipation, melena, hematochezia GENITOURINARY: Absent: dysuria, frequency, urgency, hesitancy, hematuria, flank pain, genital pain MUSCULOSKELETAL: Absent: myalgia, arthralgia, joint swelling, back pain, neck pain SKIN: Absent: rash, itching, pallor HEMATOLOGIC/IMMUNOLOGIC: Absent: easy bleeding, easy bruising, lymphadenopathy, frequent infections ENDOCRINE: Absent: unexplained weight gain, unexplained weight loss, heat intolerance, cold intolerance NEUROLOGIC: Absent: headache, focal weakness or paresthesias, dizziness, unsteady gait, seizure, mental status changes, bladder or bowel incontinence PSYCHIATRIC: Absent: anxiety, depression, suicidal or homicidal ideation, hallucinations. PHYSICAL EXAMINATION Vital Signs - 24 hr 12/02/19 12/02/19 12/02/19 13:46 13:49 14:25 Temperature 97.5 F L Pulse Rate 55 L Pulse Rate [ 54 L Right] Respiratory 18 20 Rate Blood Pressure 127/65 Blood Pressure 121/94 [Right Arm] O2 Sat by Pulse 98 96 98 Oximetry (%) 12/02/19 17:51 Temperature Pulse Rate Pulse Rate [ 52 L Right] Respiratory Rate Blood Pressure Blood Pressure 113/54 L [Right Arm] O2 Sat by Pulse 96 Oximetry (%) GENERAL: Well-appearing elderly female, NAD. resting comfortably in bed. HEENT: AT/NC. EOMI. MMM. NECK: Supple, no JVD or LAD. LUNGS: CTA b/l. No accessory muscle use noted. Speaks in complete sentences. HEART: RRR, normal S1, S2. ABDOMEN: Soft, NT/ND. Normoactive BS. No rebound tenderness/guarding. MUSCULOSKELETAL: Normal range of motion at all joints. No bony deformities or tenderness. No CVA tenderness. EXTREMITIES: 1+ pitting edema on b/l LE. NEUROLOGICAL: Cranial nerves II-XII intact. Normal speech. Laboratory Results - last 24 hr 12/02/19 12/02/19 12/02/19 14:17 14:17 16:20 WBC 9.6 RBC 3.40 L Hgb 10.3 L Hct 32.0 L MCV 93.9 MCH 30.2 MCHC 32.2 RDW 15.2 Plt Count 284 MPV 10.6 Sodium 138 Potassium 5.7 H Chloride 107 Carbon Dioxide 24 Anion Gap 7 L BUN 54.4 H Creatinine 2.7 H Est GFR (CKD-EPI)AfAm 18.03 Est GFR (CKD-EPI)NonAf 15.56 POC Glucometer 154 Random Glucose 231 H Calcium 8.4 L Total Bilirubin 0.3 AST 25 ALT 27 Alkaline Phosphatase 78 Creatine Kinase 43 Troponin I 0.02 B-Natriuretic Peptide 1243.1 H Total Protein 6.6 Albumin 3.1 L Urine Color Urine Appearance Urine pH Ur Specific [place] Urine Protein Urine Glucose (UA) Urine Ketones Urine Blood Urine Nitrite Urine Bilirubin Urine Urobilinogen Ur Leukocyte Esterase Urine WBC (Auto) Urine RBC (Auto) Urine Casts (Auto) U Epithel Cells (Auto) Urine Bacteria (Auto) 12/02/19 16:44 WBC RBC Hgb Hct MCV MCH MCHC RDW Plt Count MPV Sodium Potassium Chloride Carbon Dioxide Anion Gap BUN Creatinine Est GFR (CKD-EPI)AfAm Est GFR (CKD-EPI)NonAf POC Glucometer Random Glucose Calcium Total Bilirubin AST ALT Alkaline Phosphatase Creatine Kinase Troponin I B-Natriuretic Peptide Total Protein Albumin Urine Color Yellow Urine Appearance Turbid Urine pH 6.0 Ur Specific [place] 1.015 Urine Protein 2+ H Urine Glucose (UA) 2+ H Urine Ketones Negative Urine Blood 2+ H Urine Nitrite Negative Urine Bilirubin Negative Urine Urobilinogen 0.2 Ur Leukocyte Esterase 2+ H Urine WBC (Auto) 2713 Urine RBC (Auto) 85 Urine Casts (Auto) 2 U Epithel Cells (Auto) 8 Urine Bacteria (Auto) >10,000 ASSESSMENT/PLAN: 84 Northern Irish-speaking female w/ pmhx of HTN, HLD, IDDM, TIA, CAD s/p CABG/PCIs, diastolic CHFpEF, PVD, CKD, OA, and GERD presents in the ED for shortness of breath. #ULISES on CKD; Cr. 2.7 -Will hold ACEI -Nephro consulted #Shortness of Breath; does not appear to be fluid overloaded although has some b/l LE pitting edema. -Given symptoms of sob during sleep and choking at night, may benefit from a sleep study for evaluation of TOR -Pulm consulted -b/l LE duplex ordered -Hold home amlodipine for now given LE edema #UTI; UA showed 2+ LE, WBC 2713. 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 Likely 2/2 CKD -Given K+ cocktail in ED (Ca Glu, D50, insulin) -F/u repeat BMP; cont to trend -Nephro consulted #Hx of CHFpEF; Appears euvolemic, not in acute exacerbation. Will hold ACEI in setting of ULISES. Cont home meds: Coreg 3.125 BID, ASA 81, Crestor 40, #HTN/HLD; Cont home meds: Coreg 3.125 BID, Crestor 40. Will hold ACEI in setting of ULISES and amlodipine due to LE edema. #IDDM; Home long-acting insulin dose to be reconciled. BGM/ISS ACHS. #Hx of CVA/CAD s/p stents; Cont home meds: ASA 81, Crestor 40. #Prophylaxis DVT: SQH #FEN -PO hydration -recheck lytes in AM (K) -Diabetic diet Dispo -Admit to med-surg Visit type - Emergency Visit Emergency Visit: Yes ED Registration Date: 12/02/19 Care time: The patient presented to the Emergency Department on the above date and was hospitalized for further evaluation of their emergent condition. - New Patient This patient is new to me today: Yes Date on this admission: 12/02/19 - Critical Care Critical Care patient: No ATTENDING PHYSICIAN STATEMENT I saw and evaluated the patient. I reviewed the resident's note and discussed the case with the resident. I agree with the resident's findings and plan as documented. SUBJECTIVE: OBJECTIVE: ASSESSMENT AND PLAN:
--- NOTE | 2019-12-02 18:11 | PN ---
Teaching Attending Note Name of Resident: Iliana Fagan ATTENDING PHYSICIAN STATEMENT I saw and evaluated the patient. I reviewed the resident's note and discussed the case with the resident. I agree with the resident's findings and plan as documented. SUBJECTIVE: Patient is a poor historian. History obtained using [employer] air pollution inspector in p resence of daughter. 84 yo F w a pmh of HTN, HLD, IDDM, TIA, CAD s/p CABG/PCIs, diastolic CHFpEF, PVD, CKD, OA, VRE UTI, and GERD presents to the ER after being sent by her PCP for episodic shortness of breath, increased leg swelling, and a witnessed fall. Though history is difficult to obtain, patient appeared to have mechanical fall in the bathroom today that may have been associated with a brief episode of shortness of breath. She denies loss of consciousness, palpitations, chest pain. Per family her legs have been swelling increasingly over the last month. He also reports snoring at night and loud coughing in the middle of the night. Patient also reports an episode of vomiting last night which may have been associated with eating an orange. She denies nausea or shortness of breath at the time of exam. In the ED vital signs are notable for pulse of 55 but otherwise hemodynamically stable, alert and oriented x3, satting 98% on room air and speaking in full sentences. Labs significant for potassium of 5.7, creatinine of 2.3, glucose of 231, BNP of 1243, and a positive urinalysis. Chest x-ray does not show significant fluid and lungs are clear. Patient admitted to medicine for acute on chronic kidney failure with hyperkalemia and a UTI. OBJECTIVE: Last Vital Signs Temp Pulse Resp BP Pulse Ox 97.5 F L 52 L 20 113/54 L 96 12/02/19 14:25 12/02/19 17:51 12/02/19 14:25 12/02/19 17:51 12/02/19 17:51 PE: Per resident note Labs/Imaging: reviewed ASSESSMENT AND PLAN: 84 yo F w a pmh of HTN, HLD, IDDM, TIA, CAD s/p CABG/PCIs, diastolic CHFpEF, PVD, CKD, OA, VRE UTI, and GERD presents to the ER after being sent by her PCP for episodic shortness of breath, increased leg swelling, and a witnessed fall. Patient admitted to medicine for acute on chronic kidney failure with hyperkalemia and a UTI. #Acute on chronic renal failure with hyperkalemia Obtain baseline creatinine from PCP Hold lisinopril Nephrology consult Insulin given in the ED: Follow-up repeat BMP #Shortness of breath Lungs appear to be clear and though patient has some pitting edema fluid overload is unlikely to be contributing. Does not appear dyspneic on exam and is satting well on room air Concern for sleep apnea given family's description of loud snoring and choking sounds at night Consult pulmonary #UTI Recent history of VRE and E. coli urine culture Start linezolid and ceftriaxone Consult ID Follow-up urine cultures #Hypertension Continue home meds except for lisinopril #History of CAD/TIA Continue home clopidogrel, aspirin, statin DVTPpx: sub q heparin
[2019-12-02] MEDS ORDERED: LINEZOLID 600 MG PREMIX BAG 600 MG/300 ML BAG IVPB ONE (18:30)
[2019-12-02] MEDS ORDERED: CEFTRIAXONE 1 GM/50 ML BAG ONE (18:41)
[2019-12-02] MEDS: CEFTRIAXONE 1 GM in DEXTROSE 5%-WATER - 50 ML IVPB SCH (18:44)
[2019-12-02] MEDS ORDERED: DEXTROSE 5%-LACTATED RINGERS 1,000 ML IV SCH (18:45)
[2019-12-02 18:55] LABS: CALCIUM 9.1 mg/dL (8.5-10.1); CREATININE 2.7 mg/dL (0.55-1.3); POTASSIUM 5.1 mmol/L (3.5-5.1)
[2019-12-02] MEDS ORDERED: GABAPENTIN 100 MG CAPSULE ONE (22:11)
[2019-12-02] MEDS ORDERED: CARVEDILOL 3.125 MG TABLET (FP) ONE (22:11)
[2019-12-02] MEDS ORDERED: HEPARIN NA (PORCINE) 5,000 UNITS/ML 1ML VIAL ONE (22:11)
[2019-12-02] MEDS: CARVEDILOL 3.125 MG TABLET (FP) PO SCH (22:12)
[2019-12-02] MEDS: GABAPENTIN 100 MG CAPSULE PO SCH (22:21)
[2019-12-02] MEDS: HEPARIN NA (PORCINE) 5,000 UNITS/ML 1ML VIAL SQ SCH (22:21)
[2019-12-02] MEDS: INSULIN SLIDING SCALE (NOVOLOG) 1 VIAL SQ SCH (22:21)
[2019-12-03] MEDS: GABAPENTIN 100 MG CAPSULE PO SCH ×3 (05:13→21:45)
[2019-12-03] MEDS: HEPARIN NA (PORCINE) 5,000 UNITS/ML 1ML VIAL SQ SCH ×3 (05:13→21:45)
[2019-12-03] MEDS: INSULIN SLIDING SCALE (NOVOLOG) 1 VIAL SQ SCH ×4 (06:13→21:47)
--- NOTE | 2019-12-03 07:37 | CONSULT ---
Consult Consult Specialty:: Nephrology Reason for Consultation:: CKD - History of Present Illness Chief Complaint: shortness of breath History of Present Illness: Pt is an 84 year old female with pmhx of htn, hld, ckd, dm, tia, cad, chf, pvd, and gerd who was sent in for shortness of breath. She was found to have elevated bulk delivery driver and I was called to evaluate her. She denies shortness of breath or lower ext edema at the moment. SHe denies fevers or chills. She denies dysuria or hematuria. She is a poor historian. She does get shortness of breath with ambulation. - History Source History Provided By: Patient, Medical Record - Past Medical History Cardio/Vascular: Yes: Aortic Stenosis, CAD (s/p PTCI 2011), CHF, HTN, Hyperlipdemia, [place] (2010) Pulmonary: Yes: Sleep Apnea Gastrointestinal: Yes: GERD Renal/: Yes: Renal Inusuff ...: No Musculoskeletal: Yes: Chronic low back pain, Osteoarthritis (left knee severe), Other (spinal stenosis) Endocrine: Yes: Diabetes Mellitus, Other (Obesity) - Past Surgical History Past Surgical History: Yes: Hysterectomy ((LIZZIE BSO for bleeding fibroids), Oopherectomy - Alcohol/Substance Use Hx Alcohol Use: No History of Substance Use: reports: None - Smoking History Smoking history: Unknown if ever smoked Have you smoked in the past 12 months: No Aproximately how many cigarettes per day: 0 - Social History ADL: Family Assistance Occupation: , 3 children History of Recent Travel: No Home Medications - Allergies Allergies/Adverse Reactions: Allergies Allergy/AdvReac Type Severity Reaction Status Date / Time codeine [Codeine] Allergy Verified 12/02/19 14:01 orange juice Allergy Verified 12/02/19 14:01 - Home Medications Home Medications: Ambulatory Orders Clopidogrel Bisulfate [Plavix] 75 mg PO DAILY 02/08/18 Carvedilol 3.125 mg PO BID 05/15/19 Ergocalciferol (Vitamin D2) [Vitamin D2] 1 cap PO WEEKLY 05/16/19 Gabapentin 100 mg PO TID 05/16/19 Aspirin [ASA -] 81 mg PO DAILY tab.chew 05/22/19 Amlodipine Besylate 5 mg PO DAILY 12/02/19 Folic Acid 1 mg PO DAILY 12/02/19 Lisinopril [Zestril] 2.5 mg PO DAILY 12/02/19 Rosuvastatin Calcium [Crestor] 40 mg PO HS 12/02/19 Family Medical History Family History: Denies Review of Systems - Review of Systems Constitutional: reports: Malaise Eyes: reports: No Symptoms HENT: reports: No Symptoms Neck: reports: No Symptoms Cardiovascular: reports: Shortness of Breath. denies: Edema Respiratory: reports: SOB on Exertion Gastrointestinal: reports: No Symptoms Genitourinary: reports: No Symptoms Musculoskeletal: reports: No Symptoms Integumentary: reports: No Symptoms Neurological: reports: No Symptoms Endocrine: reports: No Symptoms Hematology/Lymphatic: reports: No Symptoms Psychiatric: reports: No Symptoms Physical Exam Vital Signs: Vital Signs Temperature 97.5 F L 12/02/19 23:12 Pulse Rate 58 L 12/02/19 23:12 Respiratory Rate 20 12/02/19 23:12 Blood Pressure 140/58 L 12/02/19 23:12 O2 Sat by Pulse Oximetry (%) 96 12/02/19 23:12 Constitutional: Yes: Calm Eyes: Yes: Conjunctiva Clear HENT: Yes: Atraumatic Neck: Yes: Supple Cardiovascular: Yes: S1, S2 Respiratory: Yes: CTA Bilaterally Gastrointestinal: Yes: Soft Renal/: Yes: WNL Musculoskeletal: Yes: WNL Edema: No Neurological: Yes: Oriented Psychiatric: Yes: Oriented Imaging - Results Chest X-ray: Report Reviewed Problem List - Problems (1) CHF (congestive heart failure) Code(s): I50.9 - HEART FAILURE, UNSPECIFIED Qualifiers: Heart failure type: diastolic Heart failure chronicity: acute on chronic Qualified Code(s): I50.33 - Acute on chronic diastolic (congestive) heart failure (2) CKD (chronic kidney disease) Code(s): N18.9 - CHRONIC KIDNEY DISEASE, UNSPECIFIED Qualifiers: Chronic kidney disease stage: unspecified stage Qualified Code(s): N18.9 - Chronic kidney disease, unspecified Assessment/Plan Current Medications Generic Name Dose Route Start Last Admin Trade Name Freq PRN Reason Stop Dose Admin Aspirin 81 mg 12/03/19 10:00 Asa - PO DAILY [facility] Carvedilol 3.125 mg 12/02/19 22:00 12/02/19 22:12 Coreg - PO Not Given BID [facility] Clopidogrel Bisulfate 75 mg 12/03/19 10:00 Plavix - PO DAILY [facility] Folic Acid 1 mg 12/03/19 10:00 Folic Acid - PO DAILY [facility] Gabapentin 100 mg 12/02/19 22:00 12/03/19 05:13 Neurontin - PO 100 mg TID JASMYN Administration Heparin Sodium (Porcine) 5,000 unit 12/02/19 22:00 12/03/19 05:13 Heparin - SQ 5,000 unit TID JASMYN Administration Ceftriaxone Sodium 1 gm/ 50 mls @ 100 mls/hr 12/02/19 18:30 12/02/19 18:44 Dextrose IVPB 100 mls/hr DAILY JASMYN Administration Linezolid 600 mg in 300 mls @ 300 mls/hr 12/02/19 18:30 Zyvox 600 Mg Premix Bag (Restricted To Id) - IVPB Q12H [facility] Protocol Insulin Aspart 1 vial 12/02/19 22:00 12/03/19 06:13 Novolog Vial Sliding Scale - SQ 4 units ACHS JASMYN Administration Protocol Rosuvastatin Calcium 40 mg 12/02/19 22:00 Crestor - PO HS [facility] Laboratory Tests 07/19/19 07/21/19 07/21/19 19:22 06:07 06:07 Creatinine Urine Eosinophils None seen NATHEN [facility] Screen Positive COVID-19 (MARIAJOSE) 07/22/19 07/23/19 07/24/19 06:20 06:30 07:28 Creatinine 2.2 H 2.2 H 2.5 H Urine Eosinophils NATHEN [facility] Screen COVID-19 (MARIAJOSE) 07/25/19 12/02/19 12/02/19 07:32 14:17 16:44 Creatinine 2.5 H 2.7 H Urine Eosinophils NATHEN [facility] Screen COVID-19 (MARIAJOSE) Pending 12/02/19 12/03/19 18:00 07:11 Creatinine 2.7 H 2.6 H Urine Eosinophils NATHEN [facility] Screen COVID-19 (MARIAJOSE) 1. ULISES on CKD 2. CKD stage 3 3. Renal Cyst 4. chf 5. hld 6. proteinuria 7. UTI Plan - renal function is improving - pt tolerating diet - will hold off fluids and hold off lasix - evaluate volume status daily - no signs of overload - check echo - repeat am cxr - follow covid
[2019-12-03 07:39] LABS: BASO % 0.9 % (0-2.0); HEMATOCRIT 30.7 % (32.4-45.2); HEMOGLOBIN 9.8 GM/dL (10.7-15.3); LYMPH % 33.4 % (8-40); MCH 29.6 pg (25.7-33.7); MCHC 32.1 g/dl (32.0-36.0); MEAN CELL VOLUME 92.4 fl (80-96); MEAN PLT VOLUME 10.1 fl (7.5-11.1); MONO % 6.1 % (3.8-10.2); NEUT % 55.6 % (42.8-82.8); PLATELET COUNT 273 K/MM3 (134-434); RBC 3.32 M/mm3 (3.60-5.2); RDW 14.5 % (11.6-15.6); WHITE BLOOD COUNT 8.6 K/mm3 (4.0-10.0)
[2019-12-03 08:03] LABS: CALCIUM 8.9 mg/dL (8.5-10.1)
[2019-12-03 08:06] LABS: ALBUMIN 2.9 g/dl (3.4-5.0); BILIRUBIN,TOTAL 0.2 mg/dL (0.2-1); BLOOD UREA NITROGEN 50.9 mg/dL (7-18); CREATININE 2.6 mg/dL (0.55-1.3); MAGNESIUM 2.6 mg/dL (1.8-2.4); PHOSPHOROUS 4.4 mg/dL (2.5-4.9); POTASSIUM 4.8 mmol/L (3.5-5.1)
--- NOTE | 2019-12-03 09:46 | EKG ---
Test Reason : Blood Pressure : / mmHG Vent. Rate : 053 BPM Atrial Rate : 053 BPM P-R Int : 188 ms QRS Dur : 076 ms QT Int : 442 ms P-R-T Axes : 050 -03 108 degrees QTc Int : 414 ms SINUS BRADYCARDIA INFERIOR INFARCT , AGE UNDETERMINED ANTEROLATERAL INFARCT (CITED ON OR BEFORE 18-JUL-2019) ABNORMAL ECG Confirmed by MD JULIETTE, CORI ([id number]) on 12/03/2019 9:46:43 AM Referred By: Confirmed By:CORI SEGOVIA MD
[2019-12-03] MEDS: ROSUVASTATIN CA 10 MG TABLET (FP) PO SCH ×2 (09:52→21:45)
[2019-12-03] MEDS: ASPIRIN 81 MG CHEWABLE TABLETS PO SCH (09:53)
[2019-12-03] MEDS: CEFTRIAXONE 1 GM in DEXTROSE 5%-WATER - 50 ML IVPB SCH ×2 (09:53→12:00)
[2019-12-03] MEDS: CARVEDILOL 3.125 MG TABLET (FP) PO SCH ×2 (09:53→21:45)
[2019-12-03] MEDS: FOLIC ACID 1 MG TABLET (FP) PO SCH (09:53)
[2019-12-03] MEDS: CLOPIDOGREL BISULFATE 75 MG TABLET (FP) PO SCH (09:53)
--- NOTE | 2019-12-03 10:43 | CONSULT ---
Admitting History and Physical - Primary Care Physician PCP: Stevie Carranza - Admission History of Present Illness: Per EMR- 84 yo F w a pmh of HTN, HLD, IDDM, TIA, CAD s/p CABG/PCIs, diastolic CHFpEF, PVD, CKD, OA, VRE UTI, and GERD presents to the ER after being sent by her PCP for episodic shortness of breath, increased leg swelling, and a witnessed fall. Patient admitted to medicine for acute on chronic kidney failure with hyperkalemia and a UTI. Selected Entries 12/03/19 12/03/19 09:39 10:11 Breakfast NPO Temperature 97.8 F Blood Pressure 142/55 L Laboratory Tests 12/03/19 07:11 WBC 8.6 Laboratory Tests 12/02/19 16:44 COVID-19 (MARIAJOSE) Pending Pt tolerated puidding and thin liquid but choked on eggs and vomited?/expectorated solids. c/o it getting stuck. Pt made NPO. - Past Medical History Cardiovascular: Yes: Aortic Stenosis, CAD (s/p PTCI 2011), CHF, HTN, Hyperlipdemia, PR (2010) Pulmonary: Yes: Sleep Apnea Gastrointestinal: Yes: GERD Renal/: Yes: Renal Inusuff ...: No Heme/Onc: Yes: B12 Deficiency Musculoskeletal: Yes: Chronic low back pain, Osteoarthritis (left knee severe), Other (spinal stenosis) Endocrine: Yes: Diabetes Mellitus, Other (Obesity) - Past Surgical History Past Surgical History: Yes: Hysterectomy ((LIZZIE BSO for bleeding fibroids), Ooph erectomy - Smoking History Smoking history: Unknown if ever smoked Have you smoked in the past 12 months: No Aproximately how many cigarettes per day: 0 - Alcohol/Substance Use Hx Alcohol Use: No History of Substance Use: reports: None - Social History ADL: Family Assistance Occupation: , 3 children History of Recent Travel: No History - Admission Reason For Visit: RENAL FAILURE - Diagnostics X-ray: Report Reviewed (cxr (-)) - General Mental Status: Forgetful, Vague, Confused Ability to Follow Directions: Fair - Hearing Hearing: Normal Speech Evaluation - Communication Primary Language: SUDANESE Communication: Yes: Simple Responses (tangential, alternates b/n languages, said to be similar to baseline) - Swallow Evaluation/Bedside Assessment Current Nutritional Intake: NPO Oral Secretions: Yes: WFL Coughing/Throat Clear: Yes (eggs) Recommendations - Speech Evaluation, Impression/Plan Impression: r/o stasis of solids-pharyngeal/esophageal? Tolerated puree/thin this am but "choked/vomited/expectorated" eggs. r/o Covid - Dysphagia Impressions/Plan Swallowing Skills: Impaired Dysphagia Impressions: Ongoing Evaluation *Silent aspiration: cannot be R/O at bedside Dysphagia Treatment Plan: Elevate HOB during feed Recommendations: MBS w Esophagus (following Covid results) - Recommendations Diet Consistency: Other (clear liquids) Liquids: Thin Liquids Supplement: Ensure
--- NOTE | 2019-12-03 11:35 | PN ---
Progress Note (short form) - Note Progress Note: ID consult dictated imp/reccd 84 yo female alert, lives at home brought to ED after fall at home, denies LOC notes some sob and lower extremity edema that have improved since admission no fevers unclear whether she has dysuria UA noted for pyuria she reports her breathing now improved pyuria- history of vre sensitive to amp, ecoli in the past would continue rocephin and await cultures ckd-at baseline chf- improved contact isolation for VRE
--- NOTE | 2019-12-03 11:47 | PN ---
Progress Note (short form) - Note Progress Note: PULMONARY CONSULTATION DICTATED 12/03/19 IMP DYSPNEA ASHD S/P CABG DIASTOLIC HF ACUTE ON CKD HTN H/O TIA HLD PVD ? TOR PLAN O2 NEEDED LASIX NEEDED ABX CHECK CULTURES SLEEP SCREEN ECHO MONITOR LYTES,RENAL FUNCTION DAILY WTS DR DILLON Problem List - Problems (1) Dyspnea Code(s): R06.00 - DYSPNEA, UNSPECIFIED (2) Anemia Code(s): D64.9 - ANEMIA, UNSPECIFIED (3) CHF (congestive heart failure) Code(s): I50.9 - HEART FAILURE, UNSPECIFIED Qualifiers: Heart failure type: diastolic Heart failure chronicity: acute on chronic Qualified Code(s): I50.33 - Acute on chronic diastolic (congestive) heart failure (4) Diabetes mellitus Code(s): E11.9 - TYPE 2 DIABETES MELLITUS WITHOUT COMPLICATIONS (5) HTN (hypertension) Code(s): I10 - ESSENTIAL (PRIMARY) HYPERTENSION Qualifiers: Hypertension type: essential hypertension Qualified Code(s): I10 - Essential (primary) hypertension (6) Nausea & vomiting Code(s): R11.2 - NAUSEA WITH VOMITING, UNSPECIFIED Qualifiers: Vomiting type: unspecified Vomiting Intractability: unspecified Qualified Code(s): R11.2 - Nausea with vomiting, unspecified (7) [id number] kidney injury Code(s): N17.9 - ACUTE KIDNEY FAILURE, UNSPECIFIED; N18.9 - CHRONIC KIDNEY DISEASE, UNSPECIFIED Qualifiers: Acute renal failure type: unspecified Chronic kidney disease stage: unsp ecified stage Qualified Code(s): N17.9 - Acute kidney failure, unspecified; N18.9 - Chronic kidney disease, unspecified (8) CAD (coronary artery disease) Code(s): I25.10 - ATHSCL HEART DISEASE OF [place] CORONARY ARTERY W/O ANG PCTRS Qualifiers: Coronary Disease-Associated Artery/Lesion type: unspecified vessel or lesion type [place] vs. transplanted heart: unspecified whether [place] or transplanted heart Associated angina: with unspecified angina Qualified Code(s): I25.119 - Atherosclerotic heart disease of [place] coronary artery with unspecified angina pectoris
--- NOTE | 2019-12-03 15:56 | PN ---
Physical Exam: SUBJECTIVE: Pt vomited food. Patient seen and examined. NAD. OBJECTIVE: Vital Signs Period Temp Pulse Resp BP Sys/[place] Pulse Ox Last 24 Hr 97.4 F-97.9 F 52-67 16-20 113-148/51-58 96-96 GENERAL: The patient is awake, alert, and fully oriented, in no acute distress. HEENT: NT, NC,extraocular movements intact, No ptosis. moist mucous membranes. NECK: supple. LUNGS: Breath sounds diminished b/l bases; CTAB, no wheezes, no crackles, no accessory muscle use. HEART: Regular rate and rhythm, S1, S2, systolic murmur most prominent in aortic area; no radiation to carotids ABDOMEN: Soft, nontender, nondistended,no guarding, no rebound; DECREASED bowel sounds; rectal tone intact EXTREMITIES: 2+ pulses, warm, well-perfused, no edema. NEUROLOGICAL: Cranial nerves II through XII grossly intact. Normal speech, gait not observed. Strength in UE 5/5. Strength LE 4/5. Sensation intact in all extre mities b/l and in face. PSYCH: Normal mood, normal affect. SKIN: Warm, dry, normal turgor, no rashes or lesions noted Laboratory Results - last 24 hr 12/02/19 12/02/19 12/02/19 14:17 16:20 16:44 WBC RBC Hgb Hct MCV MCH MCHC RDW Plt Count MPV Absolute Neuts (auto) Neutrophils % Lymphocytes % Monocytes % Eosinophils % Basophils % Nucleated RBC % Sodium Potassium Chloride Carbon Dioxide Anion Gap BUN Creatinine Est GFR (CKD-EPI)AfAm Est GFR (CKD-EPI)NonAf POC Glucometer 154 Random Glucose Calcium Phosphorus Magnesium Total Bilirubin AST ALT Alkaline Phosphatase Creatine Kinase 43 Troponin I 0.02 B-Natriuretic Peptide 1243.1 H Total Protein Albumin Urine Color Yellow Urine Appearance Turbid Urine pH 6.0 Ur Specific [place] 1.015 Urine Protein 2+ H Urine Glucose (UA) 2+ H Urine Ketones Negative Urine Blood 2+ H Urine Nitrite Negative Urine Bilirubin Negative Urine Urobilinogen 0.2 Ur Leukocyte Esterase 2+ H Urine WBC (Auto) 2713 Urine RBC (Auto) 85 Urine Casts (Auto) 2 U Epithel Cells (Auto) 8 Urine Bacteria (Auto) >10,000 12/02/19 12/02/19 12/02/19 18:00 18:21 22:18 WBC RBC Hgb Hct MCV MCH MCHC RDW Plt Count MPV Absolute Neuts (auto) Neutrophils % Lymphocytes % Monocytes % Eosinophils % Basophils % Nucleated RBC % Sodium 141 Potassium 5.1 Chloride 109 H Carbon Dioxide 23 Anion Gap 8 BUN 55.0 H Creatinine 2.7 H Est GFR (CKD-EPI)AfAm 18.03 Est GFR (CKD-EPI)NonAf 15.56 POC Glucometer 138 264 Random Glucose 156 H Calcium 9.1 Phosphorus Magnesium Total Bilirubin AST ALT Alkaline Phosphatase Creatine Kinase Troponin I B-Natriuretic Peptide Total Protein Albumin Urine Color Urine Appearance Urine pH Ur Specific [place] Urine Protein Urine Glucose (UA) Urine Ketones Urine Blood Urine Nitrite Urine Bilirubin Urine Urobilinogen Ur Leukocyte Esterase Urine WBC (Auto) Urine RBC (Auto) Urine Casts (Auto) U Epithel Cells (Auto) Urine Bacteria (Auto) 12/03/19 12/03/19 12/03/19 05:40 07:11 07:11 WBC 8.6 RBC 3.32 L Hgb 9.8 L Hct 30.7 L MCV 92.4 MCH 29.6 MCHC 32.1 RDW 14.5 Plt Count 273 MPV 10.1 Absolute Neuts (auto) 4.8 Neutrophils % 55.6 Lymphocytes % 33.4 Monocytes % 6.1 Eosinophils % 4.0 Basophils % 0.9 Nucleated RBC % 0 Sodium 142 Potassium 4.8 Chloride 111 H Carbon Dioxide 20 L Anion Gap 11 BUN 50.9 H Creatinine 2.6 H Est GFR (CKD-EPI)AfAm 18.87 Est GFR (CKD-EPI)NonAf 16.28 POC Glucometer 209 Random Glucose 199 H Calcium 8.9 Phosphorus 4.4 Magnesium 2.6 H Total Bilirubin 0.2 AST 21 ALT 27 Alkaline Phosphatase 71 Creatine Kinase Troponin I B-Natriuretic Peptide Total Protein 6.0 L Albumin 2.9 L Urine Color Urine Appearance Urine pH Ur Specific [place] Urine Protein Urine Glucose (UA) Urine Ketones Urine Blood Urine Nitrite Urine Bilirubin Urine Urobilinogen Ur Leukocyte Esterase Urine WBC (Auto) Urine RBC (Auto) Urine Casts (Auto) U Epithel Cells (Auto) Urine Bacteria (Auto) 12/03/19 11:34 WBC RBC Hgb Hct MCV MCH MCHC RDW Plt Count MPV Absolute Neuts (auto) Neutrophils % Lymphocytes % Monocytes % Eosinophils % Basophils % Nucleated RBC % Sodium Potassium Chloride Carbon Dioxide Anion Gap BUN Creatinine Est GFR (CKD-EPI)AfAm Est GFR (CKD-EPI)NonAf POC Glucometer 195 Random Glucose Calcium Phosphorus Magnesium Total Bilirubin AST ALT Alkaline Phosphatase Creatine Kinase Troponin I B-Natriuretic Peptide Total Protein Albumin Urine Color Urine Appearance Urine pH Ur Specific [place] Urine Protein Urine Glucose (UA) Urine Ketones Urine Blood Urine Nitrite Urine Bilirubin Urine Urobilinogen Ur Leukocyte Esterase Urine WBC (Auto) Urine RBC (Auto) Urine Casts (Auto) U Epithel Cells (Auto) Urine Bacteria (Auto) Active Medications Generic Name Dose Route Start Last Admin Trade Name Freq PRN Reason Stop Dose Admin Aspirin 81 mg 12/03/19 10:00 12/03/19 09:53 Asa - PO 81 mg DAILY JASMYN Administration Carvedilol 3.125 mg 12/02/19 22:00 12/03/19 09:53 Coreg - PO 3.125 mg BID JASMYN Administration Clopidogrel Bisulfate 75 mg 12/03/19 10:00 12/03/19 09:53 Plavix - PO 75 mg DAILY JASMYN Administration Folic Acid 1 mg 12/03/19 10:00 12/03/19 09:53 Folic Acid - PO 1 mg DAILY JASMYN Administration Gabapentin 100 mg 12/02/19 22:00 12/03/19 14:25 Neurontin - PO 100 mg TID JASMYN Administration Heparin Sodium (Porcine) 5,000 unit 12/02/19 22:00 12/03/19 14:25 Heparin - SQ 5,000 unit TID JASMYN Administration Ceftriaxone Sodium 1 gm/ 50 mls @ 100 mls/hr 12/02/19 18:30 12/03/19 12:00 Dextrose IVPB 100 mls/hr DAILY JASMYN Administration Insulin Aspart 1 vial 12/02/19 22:00 12/03/19 11:35 Novolog Vial Sliding Scale - SQ Not Given ACHS [facility] Protocol Rosuvastatin Calcium 10 mg 12/02/19 22:00 12/03/19 09:52 Crestor - PO Not Given HS [facility] ECHO: EF 65%, Impaired LV relaxation, LA & RA mildly dilated, mild-moderate mitral annular calcification, trace mitral regurg, mild aortic stenosis, moderate-severe aortic sclerosis, EKG: Sinus bradycardia, inferior infarct (age undetermined); anterolateral infarct (cited on/before 07/18/2019) Doppler: no DVT on b/l LE CXR: sternal sutures & clips & prominent mediastinum w/ large heart ASSESSMENT/PLAN: 84 YO F PMH GERD, TIA, CKD, HTN, IDDM, VRE UTI (06/2019), diastolic CHF w/ preserved EF, CAD s/p triple bypass (10/2018) p/w SOB X 2d, orthopnea, and worsening b/l LE edema X 3 wks, a witnessed fall, & N/V for 2 wks. #SOB 2/2 CHF exacerbation VS aortic stenosis VS TOR -LE duplex negative for DVT - ECHO: EF 65%, Impaired LV relaxation, LA & RA mildly dilated, mild-moderate mitral annular calcification, trace mitral regurg, mild aortic stenosis, moderate-severe aortic sclerosis, -lung/heart exam are not suggestive of fluid overload expected in CHF exacerbation -Pulm c/s appreciated. will f/u on sleep screen ordered since SOB during sleep; TOR? -amlodipine 5 mg PO Daily (home) will be HELD due to b/l lower extremity edema -f/u CXR -f/u Is and Os & wt changes #ULISES on CKD -nephro c/s appreciated. -c/w holding home lisinopril 2.5 mg PO daily, hold off Lasix #Dysphagia (N/V) 2/2 possibly to Gastroparesis vs gastritis -GI consulted -QTC: 414; zofran 4 mg IV push ONCE was given #UTI -UA: bacteria >10 K, WBC 2713, epith 8, blood 2+, protein 2+, glucose 2+ -h/o UTI VRE in Jun 2019. h/o dysuria for weeks -s/p Linezolid 600 mg in 300 IVPB was given once. -c/w Ceftriaxone 1 gm in D5W -f/u ID c/s -f/u Ucx -UCx pending #Hyperkalemia -5.7 in ED; Given Calcium gluconate, insulin. RESOLVED -c/w monitoring bmp #diastolic CHFpEF -ECHO (July 2019): LVEF 65%, mild LVH. Moderate-severe aortic stenosis (AV area 1.8 cm2, gradient 17 mmHg) -exam suggests euvolemia. -c/w home carvedilol 3.125 mg BID -hold home lisinopril 2.5 mg PO Daily due to ULISES #HTN -c/w home carvedilol 3.125 mg BID -hold home amlodipine 5 mg PO daily 2/ LE edema -hold home lisinopril 2.5 mg PO Daily due to ULISES #HLD c/w home rosuvastatin 40 mg PO HS #IDDM -ISS ACHS -BGM #CAD s/p CABG & 4 stents -c/w home ASA 81 mg PO daily -c/w home rosuvastatin 40 mg PO HS #DVT PPX SQH #FEN -No IV fluids -monitor lytes; K+ was elevated on admission -speech & swallow c/s appreciated. clear liquids, Ensure Enlive Visit type - Emergency Visit Emergency Visit: Yes ED Registration Date: 12/02/19 Care time: The patient presented to the Emergency Department on the above date and was hospitalized for further evaluation of their emergent condition. - New Patient This patient is new to me today: No - Critical Care Critical Care patient: No - Medication Review Med list reviewed for High Risk Meds patients 65 and older: Yes ATTENDING PHYSICIAN STATEMENT I saw and evaluated the patient. I reviewed the resident's note and discussed the case with the resident. I agree with the resident's findings and plan as documented. SUBJECTIVE: OBJECTIVE: ASSESSMENT AND PLAN:
--- NOTE | 2019-12-03 17:04 | ECHO ---
Version: 1 Name: JERRY AZEVEDO Exam: Adult Echocardiogram Study Date: 12/03/2019, 3:11 PM Age: 84 Years MMode/2D Measurements & Calculations IVSd: 1.17 cm LVIDs: 2.9 cm LVIDd: 4.8 cm LVPWd: 1.05 cm ACS: 1.49 cm Ao root diam: 3.1 cm LVOT diam: 2.00 cm LA dimension: 4.1 cm Doppler Measurements & Calculations MV E max mark: 103.7 cm/sec MVA(VTI): 2.22 cm MV A max mark: 130.3 cm/sec MV V2 max: 139.8 cm/sec MV mean P.42 mmHg MV max P.8 mmHg MV E/A: 0.80 Med E/e': 30.5 Lat E/e': 10.1 Med Peak E' Mark: 3.4 cm/sec Lat Peak E' Mark: 10.3 cm/sec Ao max P.6 mmHg PASCUAL(I,D): 3.1 cm Ao mean P.3 mmHg LV V1 mean: 74.5 cm/sec Ao V2 max: 107.2 cm/sec LV V1 mean P.0 mmHg Procedure The study was technically limited with all images being suboptimal in quality. Left Ventricle The left ventricular size, thickness and function are normal. Ejection Fraction = 65%. The transmitr al spectral Doppler flow pattern is suggestive of impaired LV relaxation. Right Ventricle The right ventricle is normal in size and function. Atria The left atrium is mildly dilated. The right atrium is mildly dilated. Mitral Valve There is mild to moderate mitral annular calcification. There is trace mitral regurgitation. Tricuspid Valve The tricuspid valve is not well visualized, but is grossly normal. There is mild tricuspid regurgita tion. Aortic Valve There is moderate to severe aortic sclerosis.;. Mild valvular aortic stenosis. Pulmonic Valve The pulmonic valve is not well visualized. Great Vessels The aortic root is normal size. Normal aortic arch, descending and ascending aorta. Pericardium/Pleura There is no pericardial effusion. Tech Comments TDS due to body habitus. Summary Statements The study was technically limited with all images being suboptimal in quality. The left ventricular size, thickness and function are normal Ejection Fraction = 65%. The transmitral spectral Doppler flow pattern is suggestive of impaired LV relaxation. The right ventricle is normal in size and function. The left atrium is mildly dilated. The right atrium is mildly dilated. There is mild to moderate mitral annular calcification. There is trace mitral regurgitation. The tricuspid valve is not well visualized, but is grossly normal. There is mild tricuspid regurgitation. Mild valvular aortic stenosis. There is moderate to severe aortic sclerosis.; The pulmonic valve is not well visualized. The aortic root is normal size. Normal aortic arch, descending and ascending aorta There is no pericardial effusion. Norberto Veliz 12/03/2019, 5:04 PM Ordering Physician: Kathryn Kaur Referring Physician: KATHRYN KAUR Performed By: ANSON
[2019-12-03] MEDS: ONDANSETRON 4 MG/2 ML VIAL IVPUSH ONE ×2 (18:52→18:57)
--- NOTE | 2019-12-03 18:54 | PN ---
Teaching Attending Note Name of Resident: Tony Santana ATTENDING PHYSICIAN STATEMENT I saw and evaluated the patient. I reviewed the resident's note and discussed the case with the resident. I agree with the resident's findings and plan as documented. SUBJECTIVE: Pt is an 84yof with pmhx of htn, hld, ckd, dm, tia, cad, chf, pvd, and gerd who was sent in for having SOB and TORRES OBJECTIVE: Vital Signs Temperature 97.4 F L 12/03/19 15:41 Pulse Rate 67 12/03/19 15:41 Respiratory Rate 16 12/03/19 15:41 Blood Pressure 148/55 L 12/03/19 15:41 O2 Sat by Pulse Oximetry (%) 96 12/03/19 09:39 Initial Vital Signs Pulse Ox 98 12/02/19 13:46 PE: per resident's note CBCD WBC 8.6 K/mm3 (4.0-10.0) 12/03/19 07:11 RBC 3.32 M/mm3 (3.60-5.2) L 12/03/19 07:11 Hgb 9.8 GM/dL (10.7-15.3) L 12/03/19 07:11 Hct 30.7 % (32.4-45.2) L 12/03/19 07:11 MCV 92.4 fl (80-96) 12/03/19 07:11 MCHC 32.1 g/dl (32.0-36.0) 12/03/19 07:11 RDW 14.5 % (11.6-15.6) 12/03/19 07:11 Plt Count 273 K/MM3 (134-434) 12/03/19 07:11 MPV 10.1 fl (7.5-11.1) 12/03/19 07:11 CMP Sodium 142 mmol/L (136-145) 12/03/19 07:11 Potassium 4.8 mmol/L (3.5-5.1) 12/03/19 07:11 Chloride 111 mmol/L (98-107) H 12/03/19 07:11 Carbon Dioxide 20 mmol/L (21-32) L 12/03/19 07:11 Anion Gap 11 MMOL/L (8-16) 12/03/19 07:11 BUN 50.9 mg/dL (7-18) H 12/03/19 07:11 Creatinine 2.6 mg/dL (0.55-1.3) H 12/03/19 07:11 Random Glucose 199 mg/dL (74-106) H 12/03/19 07:11 Calcium 8.9 mg/dL (8.5-10.1) 12/03/19 07:11 Total Bilirubin 0.2 mg/dL (0.2-1) 12/03/19 07:11 AST 21 U/L (15-37) 12/03/19 07:11 ALT 27 U/L (13-61) 12/03/19 07:11 Alkaline Phosphatase 71 U/L (45-117) 12/03/19 07:11 Total Protein 6.0 g/dl (6.4-8.2) L 12/03/19 07:11 Albumin 2.9 g/dl (3.4-5.0) L 12/03/19 07:11 CARDIAC ENZYMES Creatine Kinase 43 U/L (26-192) 12/02/19 14:17 Troponin I 0.02 ng/ml (0.00-0.05) 12/02/19 14:17 Current Medications Generic Name Dose Route Start Last Admin Trade Name Abelq PRN Reason Stop Dose Admin Aspirin 81 mg 12/03/19 10:00 12/03/19 09:53 Asa - PO 81 mg DAILY JASMYN Administration Carvedilol 3.125 mg 12/02/19 22:00 12/03/19 09:53 Coreg - PO 3.125 mg BID JASMYN Administration Clopidogrel Bisulfate 75 mg 12/03/19 10:00 12/03/19 09:53 Plavix - PO 75 mg DAILY JASMYN Administration Folic Acid 1 mg 12/03/19 10:00 12/03/19 09:53 Folic Acid - PO 1 mg DAILY JASMYN Administration Gabapentin 100 mg 12/02/19 22:00 12/03/19 14:25 Neurontin - PO 100 mg TID JASMYN Administration Heparin Sodium (Porcine) 5,000 unit 12/02/19 22:00 12/03/19 14:25 Heparin - SQ 5,000 unit TID JASMYN Administration Ceftriaxone Sodium 1 gm/ 50 mls @ 100 mls/hr 12/02/19 18:30 12/03/19 12:00 Dextrose IVPB 100 mls/hr DAILY JASMYN Administration Insulin Aspart 1 vial 12/02/19 22:00 12/03/19 17:29 Novolog Vial Sliding Scale - SQ 6 units ACHS JASMYN Administration Protocol Rosuvastatin Calcium 10 mg 12/02/19 22:00 12/03/19 09:52 Crestor - PO Not Given HS [facility] Home Medications Medication Instructions Recorded Clopidogrel Bisulfate [Plavix] 75 mg PO DAILY 02/08/18 Carvedilol 3.125 mg PO BID 05/15/19 Ergocalciferol (Vitamin D2) 1 cap PO WEEKLY 05/16/19 [Vitamin D2] Gabapentin 100 mg PO TID 05/16/19 Aspirin [ASA -] 81 mg PO DAILY tab.chew 05/22/19 Amlodipine Besylate 5 mg PO DAILY 12/02/19 Folic Acid 1 mg PO DAILY 12/02/19 Lisinopril [Zestril] 2.5 mg PO DAILY 12/02/19 Rosuvastatin Calcium [Crestor] 40 mg PO HS 12/02/19 Microbiology 12/02/19 16:44 Urine - Urine Clean Catch Urine Culture - Preliminary Lactose Fermenting Neg Bacilli ASSESSMENT AND PLAN: This patient is an 84yof with pmhx of htn, hld, ckd, dm, tia, cad, chf, pvd, and gerd who is admitted for having SOB and TORRES and was found to have UTI. #c/o having difficulty with swallowing: patient is not tolerating any food. will get GI and Sherin reed to see the patient #Acute on chronic renal failure: cr 2.6 will continue to monitor , nephro on the case #s/p hyperkalemia #Shortness of breath: with vomitus after eating will get GI involve. #UTI: Recent history of VRE and E. coli urine culture, on IV ceftriaxone, follow the cx #Hypertension: continue home meds except for lisinopril #History of CAD/TIA: continue home clopidogrel, aspirin, statin #Pending covid DVTPpx: sub q heparin
--- NOTE | 2019-12-03 20:04 | CONS ---
DATE OF CONSULTATION: 12/03/2019 PULMONARY CONSULTATION REFERRING PHYSICIAN: Stevie Carranza MD. HISTORY OF PRESENT ILLNESS: The patient is an 84-year-old female with past medical history of hypertension, hyperlipidemia, diabetes mellitus, ASHD status post CABG, PCIs, diastolic heart failure with preserved ejection fraction, PVD, chronic kidney disease, osteoarthritis, VRE UTI, GERD, admitted to [facility] after being sent by a PCP for episodic shortness of breath, increasing lower extremity edema and witnessed fall. Apparently the patient had a mechanical fall in the bathroom on the day of admission. This is associated with a brief episode of shortness of breath. Apparently there was no loss of consciousness, chest pain, or palpitations. As per the patient's family, her legs have been increasing swelling over the past month. She also apparently has a history of excessive snoring at night and coughing in the middle of the night. There is 1 episode of vomiting 1 night prior to admission after eating an orange. In the emergency room the patient is noted to be hemodynamically stable with an O2 saturation 98% on room air. Chest x-ray did not show any significant congestion. She is admitted for further evaluation. On admission, she is placed on antibiotic therapy, Atrovent and Coreg, Crestor, NovoLog, and was given Lasix in the emergency room. PAST MEDICAL HISTORY: Again includes chronic kidney disease, hypertension, hyperlipidemia, ASHD status post CABG, status post PCI, diabetes, peripheral vascular disease, congestive heart failure with preserved diastolic heart failure with preserved ejection fraction, hyperlipidemia, question of SD in 2010, aortic stenosis. REVIEW OF SYSTEMS: No orthopnea at this time, no chest pain, no palpitations, positive nocturnal cough, no fever, no chills, no hemoptysis, no abdominal pain. CURRENT MEDICATIONS: Again include: 1. Ceftriaxone. 2. Neurontin. 3. Coreg. 4. Crestor. 5. Aspirin. 6. Plavix. 7. Folic acid. In the ER, the patient received ceftriaxone, Zyvox, heparin, Neurontin, Coreg, and Lasix IV. SOCIAL HISTORY: The patient is a nonsmoker. There is no apparent history of occupational exposures. PHYSICAL EXAMINATION: General: The patient is an obese female, awake, alert, in no acute distress. She is afebrile. Vital Signs: Blood pressure 142/55, respiratory rate 20, O2 saturation is 96% on 2 L nasal cannula. HEENT: Normocephalic, atraumatic. Neck: Supple. Heart: Regular S1, S2. Chest: Clear. Abdomen: Soft, bowel sounds positive. Extremities: No cyanosis, edema. LABORATORY: BUN 50, creatinine 2.6, BNP is 1243. WBC is 8.6, hemoglobin 9.8, hematocrit 30.7, platelet count of 273,000. UA is positive protein, positive glucose, positive leukocyte esterase. Chest x-ray, poor inspiratory effort, no acute pathology appreciated. IMPRESSION: 1. status post coronary artery bypass graft. 2. Diastolic heart failure. 3. Acute on chronic kidney disease. 4. Hypertension. 5. History of . 6. Hyperlipidemia. 7. Likely obstructive suspected sleep apnea. PLAN: O2 as needed. Lasix as needed. Bronchodilators as needed as well as antibiotics. Check cultures. Order sleep screen. Echocardiogram. RHIANNON DILLON M.D. [id number]
--- NOTE | 2019-12-03 22:54 | CONS ---
DATE OF CONSULTATION: DATE OF DICTATION: 12/03/2019 HISTORY OF PRESENT ILLNESS: This is an 84-year-old [place] woman. She lives at home with her . She was seen yesterday at her PCP's office complaining of shortness of breath. She was sent to the ER for further evaluation. She reports that she did have some trouble breathing. She also reports she had an episode of a fall at home without any loss of consciousness. She reports now that her breathing has improved. She reports that she had some lower leg swelling as well that has gotten better. Per the ER note, the patient was brought in by her family. They spoke on the phone that the patient did not actually see her PCP. She is currently resting comfortably. She has no complaints. She denies fevers and chills. She says her breathing is improved and that her leg swelling is better. She reported to one of the ER doctors that she had dysuria but currently now she reports that she has no dysuria but has had a history of it in the past. She is a very inconsistent historian. She was given linezolid and ceftriaxone for a prior urine culture with E. coli and VRE and I am asked to see her for further evaluation. She is resting quite comfortably at this time. PAST MEDICAL HISTORY: There is no history of any travel. She reports she lives with her . She has a history of hypertension, hyperlipidemia, diabetes, TIA, coronary artery disease, heart failure, PVD, CKD, osteoarthritis, and GERD. PAST SURGICAL HISTORY: Notable for CABG. She has also 4 stents. Cholecystectomy and hysterectomy. SOCIAL HISTORY: She lives with her . 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 She reports she has 3 children and 6 grandchildren. No history of cigarette, alcohol, or substance use. MEDICATIONS: Plavix, Lipitor, atorvastatin, Coreg, amlodipine, vitamin D, gabapentin, tizanidine, amlodipine, aspirin, insulin. ALLERGIES: CODEINE, ORANGE JUICE. REVIEW OF SYSTEMS: Currently she has no complaints whatsoever. She does report this morning that she had an episode of emesis because she said the eggs tasted bad. The nurse confirms the emesis as well. She denies any abdominal pain or constipation. PHYSICAL EXAMINATION: General: She is a pleasant woman in no acute distress lying flat. Vital Signs: Her temperature is 97.8, pulse of 59, blood pressure 142/55, respiratory rate is 20, and she is saturating 96%. HEENT: She is normocephalic. Eyes are anicteric. Neck: Supple. Lungs: Have diminished breath sounds at the bases. Heart: Regular, rate, and rhythm. Abdomen: Soft and nontender. She has no suprapubic pain. Extremities: Have trace edema. LABORATORY DATA: White count is 8.6, hemoglobin 9.8, platelets of 273. BUN and creatinine are 50 and 2.6. LFTs are normal. Urinalysis is 2+ leukocytes with 2713 white cells. Her COVID PCR is pending. She had a duplex of her legs that is negative for DVT. A chest x-ray that was notable for no acute chest process. She has sternal sutures and a prominent mediastinum. IMPRESSION: This is an elderly woman admitted with shortness of breath, CHF which appears to be improved. She has CKD which appears to be at baseline and pyuria with a confusing history of whether she is symptomatic or not. She was started on antibiotics and is improved. She has a history of VRE sensitive to ampicillin and E. coli in the past. I would continue with Ceftriaxone and wait the cultures at this time. She will need contact isolation for VRE. Further recommendations to follow. JESSICA LUNA M.D. [id number] MTDD
[2019-12-04] MEDS: HEPARIN NA (PORCINE) 5,000 UNITS/ML 1ML VIAL SQ SCH ×3 (06:00→21:55)
[2019-12-04] MEDS: GABAPENTIN 100 MG CAPSULE PO SCH ×3 (06:00→21:56)
[2019-12-04] MEDS: INSULIN SLIDING SCALE (NOVOLOG) 1 VIAL SQ SCH ×4 (06:09→21:55)
[2019-12-04] MEDS: CLOPIDOGREL BISULFATE 75 MG TABLET (FP) PO SCH (09:05)
[2019-12-04] MEDS: FOLIC ACID 1 MG TABLET (FP) PO SCH (09:06)
[2019-12-04] MEDS: CARVEDILOL 3.125 MG TABLET (FP) PO SCH ×2 (09:06→21:57)
[2019-12-04] MEDS: ASPIRIN 81 MG CHEWABLE TABLETS PO SCH (09:06)
[2019-12-04] MEDS: CEFTRIAXONE 1 GM in DEXTROSE 5%-WATER - 50 ML IVPB SCH (10:37)
[2019-12-04 10:51] LABS: WHITE BLOOD COUNT 8.8 K/mm3 (4.0-10.0)
[2019-12-04 10:52] LABS: BASO % 0.4 % (0-2.0); EOS % 5.1 % (0-4.5); HEMATOCRIT 30.8 % (32.4-45.2); HEMOGLOBIN 9.9 GM/dL (10.7-15.3); LYMPH % 34.8 % (8-40); MCH 30.2 pg (25.7-33.7); MCHC 32.1 g/dl (32.0-36.0); MEAN CELL VOLUME 94.2 fl (80-96); MEAN PLT VOLUME 10.7 fl (7.5-11.1); MONO % 5.4 % (3.8-10.2); NEUT % 54.3 % (42.8-82.8); PLATELET COUNT 269 K/MM3 (134-434); RBC 3.27 M/mm3 (3.60-5.2); RDW 14.8 % (11.6-15.6)
--- NOTE | 2019-12-04 11:00 | PN ---
Progress Note (short form) - Note Progress Note: PULMONARY Feels weak but denies shortness of breath, cough, chest pain. Wants to eat solid food. Vital Signs Period Temp Pulse Resp BP Sys/Mckeon Pulse Ox Last 24 Hr 97.4 F-98.5 F 61-78 16-18 128-148/49-57 94-94 Gen: NAD at rest Heart: RRR Lung: decreased breath sounds at the bases Abd: soft, nontender Ext: no edema Active Medications Aspirin (Asa -) 81 mg PO DAILY [facility] Last Admin: 12/04/19 09:06 Dose: 81 mg Documented by: Carvedilol (Coreg -) 3.125 mg PO BID [facility] Last Admin: 12/04/19 09:06 Dose: 3.125 mg Documented by: Clopidogrel Bisulfate (Plavix -) 75 mg PO DAILY [facility] Last Admin: 12/04/19 09:05 Dose: 75 mg Documented by: Folic Acid (Folic Acid -) 1 mg PO DAILY [facility] Last Admin: 12/04/19 09:06 Dose: 1 mg Documented by: Gabapentin (Neurontin -) 100 mg PO TID [facility] Last Admin: 12/04/19 06:00 Dose: 100 mg Documented by: Heparin Sodium (Porcine) (Heparin -) 5,000 unit SQ TID [facility] Last Admin: 12/04/19 06:00 Dose: 5,000 unit Documented by: Ceftriaxone Sodium 1 gm/ (Dextrose) 50 mls @ 100 mls/hr IVPB DAILY [facility] Last Admin: 12/04/19 10:37 Dose: 100 mls/hr Documented by: Insulin Aspart (Novolog Vial Sliding Scale -) [address] [facility]; Protocol Last Admin: 12/04/19 06:09 Dose: 2 units Documented by: Rosuvastatin Calcium (Crestor -) 10 mg PO HS [facility] Last Admin: 12/03/19 21:45 Dose: 10 mg Documented by: A/P UTI LV Diastolic Dysfunction CAD s/p CABG CKD PAD HTN Hyperlipidemia h/o TIA r/o TOR - continue antibiotics - monitor urine output, creatinine - advance diet - outpt NPSG - DVT prophylaxis
[2019-12-04 11:16] LABS: ALBUMIN 2.9 g/dl (3.4-5.0); BILIRUBIN,TOTAL 0.3 mg/dL (0.2-1); CALCIUM 8.9 mg/dL (8.5-10.1); CREATININE 2.5 mg/dL (0.55-1.3); MAGNESIUM 2.5 mg/dL (1.8-2.4); N-TERMINAL BNP 981.3 pg/ml (5-450); PHOSPHOROUS 4.4 mg/dL (2.5-4.9)
--- NOTE | 2019-12-04 13:01 | PN ---
Progress Note, [employer] - Note Progress Note: Selected Entries 12/03/19 12/04/19 12/04/19 17:13 06:05 09:58 Breakfast 75% Supper 25% Temperature 98.4 F Pulse Rate 61 Blood Pressure 138/57 L Laboratory Tests 12/02/19 12/04/19 16:44 09:58 WBC 8.8 COVID-19 (MARIAJOSE) Not detected Tolerating clears but dislikes it, only accepted jello per nursing. Was pending Covid results. Rec-puree/thin,magic cup, ensure pudding For MBS tomorrow- just received Covid -not detected -results.
--- NOTE | 2019-12-04 14:03 | PN ---
Progress Note (short form) - Note Progress Note: on clear liquids, no vomiting Vital Signs Period Temp Pulse Resp BP Sys/Mckeon Pulse Ox Last 24 Hr 97.4 F-98.6 F 59-78 16-20 128-162/49-78 94-100 cor-rrr lungs clear abd soft,nt ext no edema CBC, BMP 12/04/19 09:58 12/04/19 09:58 Microbiology 12/02/19 16:44 Urine - Urine Clean Catch Urine Culture - Preliminary Lactose Fermenting Neg Bacilli imp/reccd 84 yo female alert, lives at home brought to ED after fall at home, denies LOC notes some sob and lower extremity edema that have improved since admission no fevers unclear whether she has dysuria UA noted for pyuria she reports her breathing now improved UTI- continue rocephin f/ucultures ckd-at baseline chf- improved contact isolation for VRE
--- NOTE | 2019-12-04 15:24 | PN ---
Progress Note, Physician History of Present Illness: Pt seen and examined at bedside. She is awake and alert. She denies shortness of breath. - Current Medication List Current Medications: Active Medications Aspirin (Asa -) 81 mg PO DAILY [facility] Last Admin: 12/04/19 09:06 Dose: 81 mg Documented by: Carvedilol (Coreg -) 3.125 mg PO BID [facility] Last Admin: 12/04/19 09:06 Dose: 3.125 mg Documented by: Clopidogrel Bisulfate (Plavix -) 75 mg PO DAILY [facility] Last Admin: 12/04/19 09:05 Dose: 75 mg Documented by: Folic Acid (Folic Acid -) 1 mg PO DAILY [facility] Last Admin: 12/04/19 09:06 Dose: 1 mg Documented by: Gabapentin (Neurontin -) 100 mg PO TID [facility] Last Admin: 12/04/19 14:12 Dose: 100 mg Documented by: Heparin Sodium (Porcine) (Heparin -) 5,000 unit SQ TID [facility] Last Admin: 12/04/19 14:12 Dose: 5,000 unit Documented by: Ceftriaxone Sodium 1 gm/ (Dextrose) 50 mls @ 100 mls/hr IVPB DAILY [facility] Last Admin: 12/04/19 10:37 Dose: 100 mls/hr Documented by: Insulin Aspart (Novolog Vial Sliding Scale -) 1 vial SQ [facility]; Protocol Last Admin: 12/04/19 12:05 Dose: 6 units Documented by: Rosuvastatin Calcium (Crestor -) 10 mg PO HS [facility] Last Admin: 12/03/19 21:45 Dose: 10 mg Documented by: - Objective Vital Signs: Vital Signs Temperature 98.8 F 12/04/19 15:14 Pulse Rate 66 12/04/19 15:14 Respiratory Rate 18 12/04/19 15:14 Blood Pressure 127/56 L 12/04/19 15:14 O2 Sat by Pulse Oximetry (%) 100 12/04/19 10:00 Constitutional: Yes: Calm Eyes: Yes: Conjunctiva Clear HENT: Yes: Atraumatic Neck: Yes: Supple Cardiovascular: Yes: S1, S2 Respiratory: Yes: CTA Bilaterally Gastrointestinal: Yes: Soft Genitourinary: Yes: WNL Musculoskeletal: Yes: WNL Extremities: Yes: WNL Neurological: Yes: Oriented Psychiatric: Yes: Oriented Labs: CBC, BMP 12/04/19 09:58 12/04/19 09:58 Problem List - Problems (1) CHF (congestive heart failure) Code(s): I50.9 - HEART FAILURE, UNSPECIFIED Qualifiers: Heart failure type: diastolic Heart failure chronicity: acute on chronic Qualified Code(s): I50.33 - Acute on chronic diastolic (congestive) heart failure (2) CKD (chronic kidney disease) Code(s): N18.9 - CHRONIC KIDNEY DISEASE, UNSPECIFIED Qualifiers: Chronic kidney disease stage: unspecified stage Qualified Code(s): N18.9 - Chronic kidney disease, unspecified Assessment/Plan Current Medications Generic Name Dose Route Start Last Admin Trade Name Freq PRN Reason Stop Dose Admin Aspirin 81 mg 12/03/19 10:00 12/04/19 09:06 Asa - PO 81 mg DAILY JASMYN Administration Carvedilol 3.125 mg 12/02/19 22:00 12/04/19 09:06 Coreg - PO 3.125 mg BID JASMYN Administration Clopidogrel Bisulfate 75 mg 12/03/19 10:00 12/04/19 09:05 Plavix - PO 75 mg DAILY JASMYN Administration Folic Acid 1 mg 12/03/19 10:00 12/04/19 09:06 Folic Acid - PO 1 mg DAILY JASMYN Administration Gabapentin 100 mg 12/02/19 22:00 12/04/19 14:12 Neurontin - PO 100 mg TID JASMYN Administration Heparin Sodium (Porcine) 5,000 unit 12/02/19 22:00 12/04/19 14:12 Heparin - SQ 5,000 unit TID JASMYN Administration Ceftriaxone Sodium 1 gm/ 50 mls @ 100 mls/hr 12/02/19 18:30 12/04/19 10:37 Dextrose IVPB 100 mls/hr DAILY JASMYN Administration Insulin Aspart 1 vial 12/02/19 22:00 12/04/19 12:05 Novolog Vial Sliding Scale - SQ 6 units ACHS JASMYN Administration Protocol Rosuvastatin Calcium 10 mg 12/02/19 22:00 12/03/19 21:45 Crestor - PO 10 mg HS JASMYN Administration 1. ULISES on CKD 2. CKD stage 3 3. Renal Cyst 4. chf 5. hld 6. proteinuria 7. UTI Plan - cont to monitor renal function - pt has appetite - no signs of overload - check echo - repeat am cxr - follow covid - cxr reviewed
--- NOTE | 2019-12-04 17:49 | PN ---
Teaching Attending Note Name of Resident: Tony Santana ATTENDING PHYSICIAN STATEMENT I saw and evaluated the patient. I reviewed the resident's note and discussed the case with the resident. I agree with the resident's findings and plan as documented. SUBJECTIVE: Patient is comfortable , wants to eat , and hungry. denies any shortness of breath OBJECTIVE: Vital Signs Temperature 98.8 F 12/04/19 15:14 Pulse Rate 66 12/04/19 15:14 Respiratory Rate 18 12/04/19 15:14 Blood Pressure 127/56 L 12/04/19 15:14 O2 Sat by Pulse Oximetry (%) 100 12/04/19 10:00 PE: per resident's note CBCD WBC 8.8 K/mm3 (4.0-10.0) 12/04/19 09:58 RBC 3.27 M/mm3 (3.60-5.2) L 12/04/19 09:58 Hgb 9.9 GM/dL (10.7-15.3) L 12/04/19 09:58 Hct 30.8 % (32.4-45.2) L 12/04/19 09:58 MCV 94.2 fl (80-96) 12/04/19 09:58 MCHC 32.1 g/dl (32.0-36.0) 12/04/19 09:58 RDW 14.8 % (11.6-15.6) 12/04/19 09:58 Plt Count 269 K/MM3 (134-434) 12/04/19 09:58 MPV 10.7 fl (7.5-11.1) 12/04/19 09:58 CMP Sodium 141 mmol/L (136-145) 12/04/19 09:58 Potassium 5.0 mmol/L (3.5-5.1) 12/04/19 09:58 Chloride 109 mmol/L (98-107) H 12/04/19 09:58 Carbon Dioxide 25 mmol/L (21-32) 12/04/19 09:58 Anion Gap 7 MMOL/L (8-16) L 12/04/19 09:58 BUN 42.0 mg/dL (7-18) H 12/04/19 09:58 Creatinine 2.5 mg/dL (0.55-1.3) H 12/04/19 09:58 Random Glucose 240 mg/dL (74-106) H 12/04/19 09:58 Calcium 8.9 mg/dL (8.5-10.1) 12/04/19 09:58 Total Bilirubin 0.3 mg/dL (0.2-1) 12/04/19 09:58 AST 14 U/L (15-37) L 12/04/19 09:58 ALT 23 U/L (13-61) 12/04/19 09:58 Alkaline Phosphatase 77 U/L (45-117) 12/04/19 09:58 Total Protein 6.0 g/dl (6.4-8.2) L 12/04/19 09:58 Albumin 2.9 g/dl (3.4-5.0) L 12/04/19 09:58 CARDIAC ENZYMES Creatine Kinase 43 U/L (26-192) 12/02/19 14:17 Troponin I 0.02 ng/ml (0.00-0.05) 12/02/19 14:17 Microbiology 12/02/19 16:44 Urine - Urine Clean Catch Urine Culture - Preliminary Lactose Fermenting Neg Bacilli ASSESSMENT AND PLAN: This patient is an 84yof with pmhx of htn, hld, ckd, dm, tia, cad, chf, pvd, and gerd who is admitted for having SOB and TORRES and was found to have UTI. # Patient is hungry and wants to eat , will start on soft diet . will monitor #Acute on chronic renal failure: cr 2.6-->2.5 will continue to monitor , nephro on the case #s/p hyperkalemia #Shortness of breath: with vomitus after eating will get GI involve. #Acute UTI: Recent history of VRE and E. coli urine culture, on IV ceftriaxone, follow the cx , Id on the case #Hypertension: continue home meds except for lisinopril #History of CAD/TIA: continue home clopidogrel, aspirin, statin #Pending covid DVTPpx: sub q heparin
--- NOTE | 2019-12-04 18:57 | PN ---
Physical Exam: SUBJECTIVE: NO overnight events. Patient seen and examined. Endorses Breathing improved. OBJECTIVE: Vital Signs Period Temp Pulse Resp BP Sys/Mckeon Pulse Ox Last 24 Hr 98.2 F-98.8 F 59-66 18-20 127-162/49-78 94-100 GENERAL: The patient is awake, alert, and fully oriented, in no acute distress. HEENT: NT, NC,extraocular movements intact, No ptosis. MMM LUNGS: Breath sounds diminished b/l bases, but improved since yesterday; CTAB, no wheezes, no crackles, no accessory muscle use. HEART: Regular rate and rhythm, S1, S2, systolic murmur most prominent in aortic area; no radiation to carotids ABDOMEN: Soft, nontender, nondistended,no guarding, no rebound; decreased bowel sounds EXTREMITIES: 2+ pulses, warm, well-perfused, no edema. NEUROLOGICAL: Normal speech, gait not observed. PSYCH: Normal mood, normal affect. SKIN: Warm, dry, normal turgor, no rashes or lesions noted Laboratory Results - last 24 hr 12/02/19 12/03/19 12/03/19 16:44 21:46 23:04 WBC RBC Hgb Hct MCV MCH MCHC RDW Plt Count MPV Absolute Neuts (auto) Neutrophils % Lymphocytes % Monocytes % Eosinophils % Basophils % Nucleated RBC % Sodium Potassium Chloride Carbon Dioxide Anion Gap BUN Creatinine Est GFR (CKD-EPI)AfAm Est GFR (CKD-EPI)NonAf POC Glucometer 227 Cancelled Random Glucose Calcium Phosphorus Magnesium Total Bilirubin AST ALT Alkaline Phosphatase B-Natriuretic Peptide Total Protein Albumin COVID-19 (MARIAJOSE) Not detected 12/04/19 12/04/19 12/04/19 06:08 09:58 09:58 WBC 8.8 RBC 3.27 L Hgb 9.9 L Hct 30.8 L MCV 94.2 MCH 30.2 MCHC 32.1 RDW 14.8 Plt Count 269 MPV 10.7 Absolute Neuts (auto) 4.8 Neutrophils % 54.3 Lymphocytes % 34.8 Monocytes % 5.4 Eosinophils % 5.1 H Basophils % 0.4 Nucleated RBC % 0 Sodium 141 Potassium 5.0 Chloride 109 H Carbon Dioxide 25 Anion Gap 7 L BUN 42.0 H Creatinine 2.5 H Est GFR (CKD-EPI)AfAm 19.79 Est GFR (CKD-EPI)NonAf 17.07 POC Glucometer 189 Random Glucose 240 H Calcium 8.9 Phosphorus 4.4 Magnesium 2.5 H Total Bilirubin 0.3 AST 14 L ALT 23 Alkaline Phosphatase 77 B-Natriuretic Peptide 981.3 H Total Protein 6.0 L Albumin 2.9 L COVID-19 (MARIAJOSE) 12/04/19 12/04/19 11:48 17:29 WBC RBC Hgb Hct MCV MCH MCHC RDW Plt Count MPV Absolute Neuts (auto) Neutrophils % Lymphocytes % Monocytes % Eosinophils % Basophils % Nucleated RBC % Sodium Potassium Chloride Carbon Dioxide Anion Gap BUN Creatinine Est GFR (CKD-EPI)AfAm Est GFR (CKD-EPI)NonAf POC Glucometer 251 239 Random Glucose Calcium Phosphorus Magnesium Total Bilirubin AST ALT Alkaline Phosphatase B-Natriuretic Peptide Total Protein Albumin COVID-19 (MARIAJOSE) Active Medications Generic Name Dose Route Start Last Admin Trade Name Freq PRN Reason Stop Dose Admin Aspirin 81 mg 12/03/19 10:00 12/04/19 09:06 Asa - PO 81 mg DAILY JASMYN Administration Carvedilol 3.125 mg 12/02/19 22:00 12/04/19 09:06 Coreg - PO 3.125 mg BID JASMYN Administration Clopidogrel Bisulfate 75 mg 12/03/19 10:00 12/04/19 09:05 Plavix - PO 75 mg DAILY JASMYN Administration Folic Acid 1 mg 12/03/19 10:00 12/04/19 09:06 Folic Acid - PO 1 mg DAILY JASMYN Administration Gabapentin 100 mg 12/02/19 22:00 12/04/19 14:12 Neurontin - PO 100 mg TID JASMYN Administration Heparin Sodium (Porcine) 5,000 unit 12/02/19 22:00 12/04/19 14:12 Heparin - SQ 5,000 unit TID JASMYN Administration Ceftriaxone Sodium 1 gm/ 50 mls @ 100 mls/hr 12/02/19 18:30 12/04/19 10:37 Dextrose IVPB 100 mls/hr DAILY JASMYN Administration Insulin Aspart 1 vial 12/02/19 22:00 12/04/19 17:36 Novolog Vial Sliding Scale - SQ 4 units ACHS JASMYN Administration Protocol Rosuvastatin Calcium 10 mg 12/02/19 22:00 12/03/19 21:45 Crestor - PO 10 mg HS JASMYN Administration ECHO: EF 65%, Impaired LV relaxation, LA & RA mildly dilated, mild-moderate mitral annular calcification, trace mitral regurg, mild aortic stenosis, moderate-severe aortic sclerosis, EKG: Sinus bradycardia, inferior infarct (age undetermined); anterolateral infarct (cited on/before 07/18/2019) Doppler: no DVT on b/l LE CXR: sternal sutures & clips & prominent mediastinum w/ large heart. REPEAT CXR: no acute change since prior study ASSESSMENT/PLAN: 84 YO F PMH GERD, TIA, CKD, HTN, IDDM, VRE UTI (06/2019), diastolic CHF w/ preserved EF, CAD s/p triple bypass (10/2018) p/w SOB X 2d, orthopnea, and worsening b/l LE edema X 3 wks, a witnessed fall, & N/V for 2 wks. #SOB 2/2 CHF exacerbation VS aortic stenosis VS TOR -LE duplex negative for DVT - lung/heart exam are not suggestive of fluid overload expected in CHF exacerbation -pulm c/s appreciated. polysomnography outpatient for TOR -amlodipine 5 mg PO Daily (home) will be HELD due to b/l lower extremity edema -f/u Is and Os & wt changes #ULISES on CKD -nephro c/s appreciated. -c/w holding home lisinopril 2.5 mg PO daily, hold off Lasix #Dysphagia (N/V) 2/2 possibly to Gastroparesis vs gastritis -GI consulted -QTC: 414; zofran 4 mg IV push ONCE was given #UTI -h/o UTI VRE in Jun 2019. h/o dysuria for weeks. UA: bacteria >10 K, WBC 2713, epith 8, blood 2+, protein 2+, glucose 2+ -s/p Linezolid 600 mg in 300 IVPB was given once. -c/w Ceftriaxone 1 gm in D5W -ucx: lactose-fermenting neg bacilli #Hyperkalemia -5.7 in ED; Given Calcium gluconate, insulin. RESOLVED -c/w monitoring bmp #diastolic CHFpEF -ECHO (July 2019): LVEF 65%, mild LVH. Moderate-severe aortic stenosis (AV area 1.8 cm2, gradient 17 mmHg) -exam suggests euvolemia. -c/w home carvedilol 3.125 mg BID -hold home lisinopril 2.5 mg PO Daily due to ULISES #HTN -c/w home carvedilol 3.125 mg BID -hold home amlodipine 5 mg PO daily 2/2 LE edema -hold home lisinopril 2.5 mg PO Daily due to ULISES #HLD c/w home rosuvastatin 40 mg PO HS #IDDM -ISS ACHS -BGM #CAD s/p CABG & 4 stents -c/w home ASA 81 mg PO daily -c/w home rosuvastatin 40 mg PO HS #DVT PPX SQH #FEN -No IV fluids -monitor lytes; K+ was elevated on admission -started on soft diet Visit type - Emergency Visit Emergency Visit: Yes ED Registration Date: 12/02/19 Care time: The patient presented to the Emergency Department on the above date and was hospitalized for further evaluation of their emergent condition. - New Patient This patient is new to me today: No - Critical Care Critical Care patient: No - Medication Review Med list reviewed for High Risk Meds patients 65 and older: Yes ATTENDING PHYSICIAN STATEMENT I saw and evaluated the patient. I reviewed the resident's note and discussed the case with the resident. I agree with the resident's findings and plan as documented. SUBJECTIVE: OBJECTIVE: ASSESSMENT AND PLAN:
--- NOTE | 2019-12-04 21:52 | CON.GI ---
Consult Consult Specialty:: Gastroenterology ( covering the [facility] GI service ) Referred by:: Dr Tony Santana Reason for Consultation:: exclude gastroparesis - History of Present Illness Chief Complaint: SOB and fall. Choking at night History of Present Illness: 84F was referred from her PMFD office when she presented with SOB and reported having fallen at home without LOC. She reports that she has vomited on 2 occasions recently. She also reports choking sensation at night but tells me that she can drink water without difficulties. She denies dysphagia, early satiety or constipation . She has never had an EGD and a colonoscopy and doesn't want these done. 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: Peripheral Neuropathy Cardio/Vascular: Yes: Aortic Stenosis (severe aortic sclerosis but mild stenosis on echo), CAD (s/p PTCI 2011), CHF (diastolic with EF 65%), HTN, Hyperlipdemia, [place] (2010), Murmur () Pulmonary: Yes: Sleep Apnea Gastrointestinal: Yes: GERD Renal/: Yes: Renal Inusuff ...: No Infectious Disease: Yes: VREF Musculoskeletal: Yes: Chronic low back pain, Osteoarthritis (left knee severe), Other (spinal stenosis) Endocrine: Yes: Diabetes Mellitus, Other (Obesity) - Past Surgical History Past Surgical History: Yes: CABG, Cholecystectomy (laparoscopic), Hysterectomy ((LIZZIE BSO for bleeding fibroids), Oopherectomy - Alcohol/Substance Use Hx Alcohol Use: No (used to drink wine with dinner) History of Substance Use: reports: None - Smoking History Smoking history: Never smoked Have you smoked in the past 12 months: No Aproximately how many cigarettes per day: 0 - Social History Usual Living Arrangement: With Spouse (aid) ADL: Family Assistance 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 (year): age 45 History of Recent Travel: No Home Medications - Allergies Allergies/Adverse Reactions: Allergies Allergy/AdvReac Type Severity Reaction Status Date / Time codeine [Codeine] Allergy Verified 12/02/19 14:01 orange juice Allergy Verified 12/02/19 14:01 - Home Medications Home Medications: Ambulatory Orders Clopidogrel Bisulfate [Plavix] 75 mg PO DAILY 02/08/18 Carvedilol 3.125 mg PO BID 05/15/19 Ergocalciferol (Vitamin D2) [Vitamin D2] 1 cap PO WEEKLY 05/16/19 Gabapentin 100 mg PO TID 05/16/19 Aspirin [ASA -] 81 mg PO DAILY tab.chew 05/22/19 Amlodipine Besylate 5 mg PO DAILY 12/02/19 Folic Acid 1 mg PO DAILY 12/02/19 Lisinopril [Zestril] 2.5 mg PO DAILY 12/02/19 Rosuvastatin Calcium [Crestor] 40 mg PO HS 12/02/19 Cyanocobalamin Vit B-12 Inj. [Vitamin B12 Injection -] 1 ml MONTHLY 12/04/19 Insulin (Novolog) [Novolog -] 200 units TID 12/04/19 Insulin Detemir [Levemir Flextouch] 34 units TID 12/04/19 Family Medical History Family History: Unremarkable Review of Systems - Review of Systems Constitutional: reports: Weakness Eyes: reports: No Symptoms HENT: reports: No Symptoms Neck: reports: No Symptoms Cardiovascular: reports: Palpitations Respiratory: reports: Exercise Intolerance Gastrointestinal: reports: Vomiting, Other (choking at night) Musculoskeletal: reports: Joint Pain Physical Exam-GI Vital Signs: Vital Signs Temperature 98.4 F 12/04/19 21:30 Pulse Rate 72 12/04/19 21:30 Respiratory Rate 22 H 12/04/19 21:30 Blood Pressure 141/59 L 12/04/19 21:30 O2 Sat by Pulse Oximetry (%) 94 L 12/04/19 21:30 CBC,CMP WBC 8.8 K/mm3 (4.0-10.0) 12/04/19 09:58 RBC 3.27 M/mm3 (3.60-5.2) L 12/04/19 09:58 Hgb 9.9 GM/dL (10.7-15.3) L 12/04/19 09:58 Hct 30.8 % (32.4-45.2) L 12/04/19 09:58 MCV 94.2 fl (80-96) 12/04/19 09:58 MCH 30.2 pg (25.7-33.7) 12/04/19 09:58 MCHC 32.1 g/dl (32.0-36.0) 12/04/19 09:58 RDW 14.8 % (11.6-15.6) 12/04/19 09:58 Plt Count 269 K/MM3 (134-434) 12/04/19 09:58 MPV 10.7 fl (7.5-11.1) 12/04/19 09:58 Absolute Neuts (auto) 4.8 K/mm3 (1.5-8.0) 12/04/19 09:58 Neutrophils % 54.3 % (42.8-82.8) 12/04/19 09:58 Lymphocytes % 34.8 % (8-40) 12/04/19 09:58 Monocytes % 5.4 % (3.8-10.2) 12/04/19 09:58 Eosinophils % 5.1 % (0-4.5) H 12/04/19 09:58 Basophils % 0.4 % (0-2.0) 12/04/19 09:58 Nucleated RBC % 0 % (0-0) 12/04/19 09:58 Sodium 141 mmol/L (136-145) 12/04/19 09:58 Potassium 5.0 mmol/L (3.5-5.1) 12/04/19 09:58 Chloride 109 mmol/L (98-107) H 12/04/19 09:58 Carbon Dioxide 25 mmol/L (21-32) 12/04/19 09:58 Anion Gap 7 MMOL/L (8-16) L 12/04/19 09:58 BUN 42.0 mg/dL (7-18) H 12/04/19 09:58 Creatinine 2.5 mg/dL (0.55-1.3) H 12/04/19 09:58 Est GFR (CKD-EPI)AfAm 19.79 12/04/19 09:58 Est GFR (CKD-EPI)NonAf 17.07 12/04/19 09:58 POC Glucometer 248 UNITS (80-120) 12/04/19 21:16 Random Glucose 240 mg/dL (74-106) H 12/04/19 09:58 Calcium 8.9 mg/dL (8.5-10.1) 12/04/19 09:58 Phosphorus 4.4 mg/dL (2.5-4.9) 12/04/19 09:58 Magnesium 2.5 mg/dL (1.8-2.4) H 12/04/19 09:58 Total Bilirubin 0.3 mg/dL (0.2-1) 12/04/19 09:58 AST 14 U/L (15-37) L 12/04/19 09:58 ALT 23 U/L (13-61) 12/04/19 09:58 Alkaline Phosphatase 77 U/L (45-117) 12/04/19 09:58 Creatine Kinase 43 U/L (26-192) 12/02/19 14:17 Troponin I 0.02 ng/ml (0.00-0.05) 12/02/19 14:17 B-Natriuretic Peptide 981.3 pg/ml (5-450) H 12/04/19 09:58 Total Protein 6.0 g/dl (6.4-8.2) L 12/04/19 09:58 Albumin 2.9 g/dl (3.4-5.0) L 12/04/19 09:58 Current Medications Generic Name Dose Route Start Last Admin Trade Name Keely PRN Reason Stop Dose Admin Aspirin 81 mg 12/03/19 10:00 12/04/19 09:06 Asa - PO 81 mg DAILY JASMYN Administration Carvedilol 3.125 mg 12/02/19 22:00 12/04/19 21:57 Coreg - PO 3.125 mg BID JASMYN Administration Clopidogrel Bisulfate 75 mg 12/03/19 10:00 12/04/19 09:05 Plavix - PO 75 mg DAILY JASMYN Administration Folic Acid 1 mg 12/03/19 10:00 12/04/19 09:06 Folic Acid - PO 1 mg DAILY JASMYN Administration Gabapentin 100 mg 12/02/19 22:00 12/04/19 21:56 Neurontin - PO 100 mg TID JASMYN Administration Heparin Sodium (Porcine) 5,000 unit 12/02/19 22:00 12/04/19 21:55 Heparin - SQ 5,000 unit TID JASMYN Administration Ceftriaxone Sodium 1 gm/ 50 mls @ 100 mls/hr 12/02/19 18:30 12/04/19 10:37 Dextrose IVPB 100 mls/hr DAILY JASMYN Administration Insulin Aspart 1 vial 12/02/19 22:00 12/04/19 21:55 Novolog Vial Sliding Scale - SQ 4 units ACHS JASMYN Administration Protocol Rosuvastatin Calcium 10 mg 12/02/19 22:00 12/04/19 21:56 Crestor - PO 10 mg HS JASMYN Administration Constitutional: Yes: Calm Eyes: Yes: Conjunctiva Clear HENT: Yes: Atraumatic Neck: Yes: Trachea Midline Cardiovascular: Yes: Regular Rate and Rhythm, Murmur (2/6 ANDRÉS at base), Other (healed median sternotomy) Respiratory: Yes: CTA Bilaterally Gastrointestinal Inspection: Yes: Scars (healed [place] and laparoscopic incisions) ...Auscultate: Yes: Hypoactive Bowel Sounds ...Palpate: Yes: Soft, Other (nontender) ...Percussion: Yes: Tympanitic ...Rectal Exam: Yes: Guaiac Negative (no masses, brown guiaic negative stool) Edema: LLE: 1+, RLE: 1+ Neurological: Yes: Alert Labs: CBC, BMP 12/04/19 09:58 12/04/19 09:58 Problem List - Problems (1) Nausea & vomiting Code(s): R11.2 - NAUSEA WITH VOMITING, UNSPECIFIED Qualifiers: Vomiting type: unspecified Vomiting Intractability: unspecified Qualified Code(s): R11.2 - Nausea with vomiting, unspecified (2) Choking episode occurring at night Code(s): R09.89 - OTH SYMPTOMS AND SIGNS INVOLVING THE CIRC AND RESP SYSTEMS (3) S/P CABG x 4 Code(s): Z95.1 - PRESENCE OF AORTOCORONARY BYPASS GRAFT (4) History of laparoscopic cholecystectomy Code(s): Z90.49 - ACQUIRED ABSENCE OF OTHER SPECIFIED PARTS OF DIGESTIVE TRACT (5) Paraumbilical hernia Code(s): K42.9 - UMBILICAL HERNIA WITHOUT OBSTRUCTION OR GANGRENE (6) Dyspnea Code(s): R06.00 - DYSPNEA, UNSPECIFIED (7) Diabetes mellitus Code(s): E11.9 - TYPE 2 DIABETES MELLITUS WITHOUT COMPLICATIONS (8) Dyslipidemia Code(s): E78.5 - HYPERLIPIDEMIA, UNSPECIFIED (9) Fall from ground level Code(s): W18.30XA - FALL ON SAME LEVEL, UNSPECIFIED, INITIAL ENCOUNTER (10) HTN (hypertension) Code(s): I10 - ESSENTIAL (PRIMARY) HYPERTENSION Qualifiers: Hypertension type: essential hypertension Qualified Code(s): I10 - Essential (primary) hypertension (11) PAD (peripheral artery disease) Code(s): I73.9 - PERIPHERAL VASCULAR DISEASE, UNSPECIFIED (12) VRE (vancomycin resistant enterococcus) culture positive Code(s): Z22.39 - CARRIER OF OTHER SPECIFIED BACTERIAL DISEASES (13) CAD (coronary artery disease) Code(s): I25.10 - ATHSCL HEART DISEASE OF [place] CORONARY ARTERY W/O ANG PCTRS Qualifiers: Coronary Disease-Associated Artery/Lesion type: unspecified vessel or lesion type [place] vs. transplanted heart: unspecified whether [place] or transplanted heart Associated angina: with unspecified angina Qualified Code(s): I25.119 - Atherosclerotic heart disease of [place] coronary artery with unspecified a ngina pectoris (14) CKD (chronic kidney disease) Code(s): N18.9 - CHRONIC KIDNEY DISEASE, UNSPECIFIED Qualifiers: Chronic kidney disease stage: unspecified stage Qualified Code(s): N18.9 - Chronic kidney disease, unspecified (15) Carotid atherosclerosis Code(s): I65.29 - OCCLUSION AND STENOSIS OF UNSPECIFIED CAROTID ARTERY (16) Diastolic CHF Code(s): I50.30 - UNSPECIFIED DIASTOLIC (CONGESTIVE) HEART FAILURE (17) Aortic stenosis, mild Code(s): I35.0 - NONRHEUMATIC AORTIC (VALVE) STENOSIS (18) Anemia Code(s): D64.9 - ANEMIA, UNSPECIFIED (19) Unsteady gait Code(s): R26.81 - UNSTEADINESS ON FEET Assessment/Plan Impression: - Although Geeta is certainly a candidate for diabetic gastroparesis the lack of persistent nausea and vomiting argues against this. If these recur then a gastric emptying study may be worthwhile - Choking at night- merits the MBS scheduled for tomorrow - Candidate for colon cancer screening and EGD given her anemia but she declines Plan: - Advance diet and observe for recurrent N/V. If recurs will shira gastric emptying study and perhaps will reconsider an EGD - Sonogram to exclude a fatty liver - PPI empirically - Anemia studies - MBS tomorrow Dr Dick will be covering this weekend
[2019-12-04] MEDS: ROSUVASTATIN CA 10 MG TABLET (FP) PO SCH (21:56)
[2019-12-05] MEDS: GABAPENTIN 100 MG CAPSULE PO SCH ×3 (06:31→21:22)
[2019-12-05] MEDS: INSULIN SLIDING SCALE (NOVOLOG) 1 VIAL SQ SCH ×4 (06:32→21:23)
[2019-12-05] MEDS: HEPARIN NA (PORCINE) 5,000 UNITS/ML 1ML VIAL SQ SCH ×3 (06:33→21:22)
[2019-12-05 07:17] LABS: BASO % 0.8 % (0-2.0); EOS % 5.3 % (0-4.5); HEMATOCRIT 30.4 % (32.4-45.2); HEMOGLOBIN 9.9 GM/dL (10.7-15.3); LYMPH % 34.4 % (8-40); MCH 29.9 pg (25.7-33.7); MCHC 32.4 g/dl (32.0-36.0); MEAN CELL VOLUME 92.1 fl (80-96); MEAN PLT VOLUME 9.8 fl (7.5-11.1); MONO % 6.6 % (3.8-10.2); NEUT % 52.9 % (42.8-82.8); PLATELET COUNT 262 K/MM3 (134-434); RDW 14.9 % (11.6-15.6); WHITE BLOOD COUNT 8.1 K/mm3 (4.0-10.0)
[2019-12-05 08:01] LABS: ALBUMIN 2.9 g/dl (3.4-5.0); BILIRUBIN,TOTAL 0.3 mg/dL (0.2-1); BLOOD UREA NITROGEN 43.1 mg/dL (7-18); CREATININE 2.4 mg/dL (0.55-1.3); MAGNESIUM 2.4 mg/dL (1.8-2.4); PHOSPHOROUS 4.3 mg/dL (2.5-4.9); POTASSIUM 4.8 mmol/L (3.5-5.1); TOT PROT 5.9 g/dl (6.4-8.2)
[2019-12-05] MEDS: CEFTRIAXONE 1 GM in DEXTROSE 5%-WATER - 50 ML IVPB SCH (11:16)
[2019-12-05] MEDS: CARVEDILOL 3.125 MG TABLET (FP) PO SCH ×2 (11:17→21:22)
[2019-12-05] MEDS: PANTOPRAZOLE 40 MG TABLET PO SCH (11:17)
[2019-12-05] MEDS: ASPIRIN 81 MG CHEWABLE TABLETS PO SCH (11:17)
[2019-12-05] MEDS: FOLIC ACID 1 MG TABLET (FP) PO SCH (11:17)
[2019-12-05] MEDS: CLOPIDOGREL BISULFATE 75 MG TABLET (FP) PO SCH (11:17)
--- NOTE | 2019-12-05 12:12 | PN ---
Progress Note (short form) - Note Progress Note: PULMONARY Denies shortness of breath, cough, chest pain. Choking sensation at night may be a sign of [facility] GI eval reviewed VSS/Afebrile Gen: NAD at rest Heart: RRR Lung: decreased breath sounds at the bases Abd: soft, nontender Ext: no edema labs/meds/notes/images reviewed A/P UTI LV Diastolic Dysfunction CAD s/p CABG CKD PAD HTN Hyperlipidemia h/o TIA r/o TOR - continue antibiotics - monitor urine output, creatinine - advance diet - outpt NPSG - DVT prophylaxis - consider outpatient sleep study Nancy MCKEE MD
[2019-12-05] MEDS: LINEZOLID 600 MG PREMIX BAG 600 MG/300 ML BAG IVPB SCH (13:43)
--- NOTE | 2019-12-05 13:44 | PN ---
Progress Note (short form) - Note Progress Note: no complaints ate lunch Vital Signs Period Temp Pulse Resp BP Sys/Mckeon Pulse Ox Last 24 Hr 97.6 F-98.8 F 63-73 18-22 127-161/56-67 94-96 cor-rrr lungs clear abd sof, nt ext no edema CBC, BMP 12/05/19 07:00 12/05/19 07:00 Microbiology 12/02/19 16:44 Urine - Urine Clean Catch Urine Culture - Final Escherichia Coli imp/reccd ecoli uti- UTI- rocephin day #4, switch to keflex 500 bid for another week ckd-at baseline chf- improved contact isolation for VRE please call back if needed Problem List - Problems (1) UTI (urinary tract infection) Code(s): N39.0 - URINARY TRACT INFECTION, SITE NOT SPECIFIED (2) CKD (chronic kidney disease) Code(s): N18.9 - CHRONIC KIDNEY DISEASE, UNSPECIFIED Qualifiers: Chronic kidney disease stage: unspecified stage Qualified Code(s): N18.9 - Chronic kidney disease, unspecified (3) CHF (congestive heart failure) Code(s): I50.9 - HEART FAILURE, UNSPECIFIED Qualifiers: Heart failure type: diastolic Heart failure chronicity: acute on chronic Qualified Code(s): I50.33 - Acute on chronic diastolic (congestive) heart failure
--- NOTE | 2019-12-05 14:43 | PN ---
Progress Note, Physician History of Present Illness: Pt seen and examined at bedside. She is awake and alert. She is tolerating diet. - Current Medication List Current Medications: Active Medications Aspirin (Asa -) 81 mg PO DAILY [facility] Last Admin: 12/05/19 11:17 Dose: 81 mg Documented by: Carvedilol (Coreg -) 3.125 mg PO BID [facility] Last Admin: 12/05/19 11:17 Dose: 3.125 mg Documented by: Clopidogrel Bisulfate (Plavix -) 75 mg PO DAILY [facility] Last Admin: 12/05/19 11:17 Dose: 75 mg Documented by: Folic Acid (Folic Acid -) 1 mg PO DAILY [facility] Last Admin: 12/05/19 11:17 Dose: 1 mg Documented by: Gabapentin (Neurontin -) 100 mg PO TID [facility] Last Admin: 12/05/19 14:36 Dose: 100 mg Documented by: Heparin Sodium (Porcine) (Heparin -) 5,000 unit SQ TID [facility] Last Admin: 12/05/19 14:36 Dose: 5,000 unit Documented by: Ceftriaxone Sodium 1 gm/ (Dextrose) 50 mls @ 100 mls/hr IVPB DAILY [facility] Last Admin: 12/05/19 11:16 Dose: 100 mls/hr Documented by: Insulin Aspart (Novolog Vial Sliding Scale -) 1 vial SQ ACHS [facility]; Protocol Last Admin: 12/05/19 13:57 Dose: Not Given Documented by: Pantoprazole Sodium (Protonix -) 40 mg PO DAILY [facility] Last Admin: 12/05/19 11:17 Dose: 40 mg Documented by: Rosuvastatin Calcium (Crestor -) 10 mg PO HS [facility] Last Admin: 12/04/19 21:56 Dose: 10 mg Documented by: - Objective Vital Signs: Vital Signs Temperature 98.8 F 12/05/19 10:00 Pulse Rate 69 12/05/19 10:00 Respiratory Rate 20 12/05/19 10:00 Blood Pressure 137/59 L 12/05/19 10:00 O2 Sat by Pulse Oximetry (%) 96 12/05/19 10:00 Constitutional: Yes: Calm Eyes: Yes: Conjunctiva Clear HENT: Yes: Atraumatic Neck: Yes: Supple Cardiovascular: Yes: S1, S2 Respiratory: Yes: CTA Bilaterally Gastrointestinal: Yes: Soft Musculoskeletal: Yes: WNL Edema: No Neurological: Yes: Oriented Psychiatric: Yes: Oriented Labs: CBC, BMP 12/05/19 07:00 12/05/19 07:00 Problem List - Problems (1) CHF (congestive heart failure) Code(s): I50.9 - HEART FAILURE, UNSPECIFIED Qualifiers: Heart failure type: diastolic Heart failure chronicity: acute on chronic Qualified Code(s): I50.33 - Acute on chronic diastolic (congestive) heart failure (2) CKD (chronic kidney disease) Code(s): N18.9 - CHRONIC KIDNEY DISEASE, UNSPECIFIED Qualifiers: Chronic kidney disease stage: unspecified stage Qualified Code(s): N18.9 - Chronic kidney disease, unspecified Assessment/Plan Current Medications Generic Name Dose Route Start Last Admin Trade Name Freq PRN Reason Stop Dose Admin Aspirin 81 mg 12/03/19 10:00 12/05/19 11:17 Asa - PO 81 mg DAILY JASMYN Administration Carvedilol 3.125 mg 12/02/19 22:00 12/05/19 11:17 Coreg - PO 3.125 mg BID JASMYN Administration Clopidogrel Bisulfate 75 mg 12/03/19 10:00 12/05/19 11:17 Plavix - PO 75 mg DAILY JASMYN Administration Folic Acid 1 mg 12/03/19 10:00 12/05/19 11:17 Folic Acid - PO 1 mg DAILY JASMYN Administration Gabapentin 100 mg 12/02/19 22:00 12/05/19 14:36 Neurontin - PO 100 mg TID JASMYN Administration Heparin Sodium (Porcine) 5,000 unit 12/02/19 22:00 12/05/19 14:36 Heparin - SQ 5,000 unit TID JASMYN Administration Ceftriaxone Sodium 1 gm/ 50 mls @ 100 mls/hr 12/02/19 18:30 12/05/19 11:16 Dextrose IVPB 100 mls/hr DAILY JASMYN Administration Insulin Aspart 1 vial 12/02/19 22:00 12/05/19 13:57 Novolog Vial Sliding Scale - SQ Not Given ACHS [facility] Protocol Pantoprazole Sodium 40 mg 12/05/19 10:00 12/05/19 11:17 Protonix - PO 40 mg DAILY JASMYN Administration Rosuvastatin Calcium 10 mg 12/02/19 22:00 12/04/19 21:56 Crestor - PO 10 mg HS JASMYN Administration Laboratory Tests 12/02/19 16:44 COVID-19 ([facility]) Not detected 1. ULISES on CKD 2. CKD stage 3 3. Renal Cyst 4. chf 5. hld 6. proteinuria 7. UTI Plan - renal function improving - pt tolerating diet - no signs of overload - covid neg - will need outpt follow up
--- NOTE | 2019-12-05 18:40 | PN ---
Teaching Attending Note Name of Resident: Tony Santana ATTENDING PHYSICIAN STATEMENT I saw and evaluated the patient. I reviewed the resident's note and discussed the case with the resident. I agree with the resident's findings and plan as documented. SUBJECTIVE: Patient feel comfortable with no acute distress. OBJECTIVE: Vital Signs Temperature 98.6 F 12/05/19 16:20 Pulse Rate 66 12/05/19 16:20 Respiratory Rate 20 12/05/19 16:20 Blood Pressure 160/82 12/05/19 16:20 O2 Sat by Pulse Oximetry (%) 96 12/05/19 14:00 PE: per resident's note CBCD WBC 8.1 K/mm3 (4.0-10.0) 12/05/19 07:00 RBC 3.30 M/mm3 (3.60-5.2) L 12/05/19 07:00 Hgb 9.9 GM/dL (10.7-15.3) L 12/05/19 07:00 Hct 30.4 % (32.4-45.2) L 12/05/19 07:00 MCV 92.1 fl (80-96) 12/05/19 07:00 MCHC 32.4 g/dl (32.0-36.0) 12/05/19 07:00 RDW 14.9 % (11.6-15.6) 12/05/19 07:00 Plt Count 262 K/MM3 (134-434) 12/05/19 07:00 MPV 9.8 fl (7.5-11.1) 12/05/19 07:00 CMP Sodium 142 mmol/L (136-145) 12/05/19 07:00 Potassium 4.8 mmol/L (3.5-5.1) 12/05/19 07:00 Chloride 110 mmol/L (98-107) H 12/05/19 07:00 Carbon Dioxide 22 mmol/L (21-32) 12/05/19 07:00 Anion Gap 10 MMOL/L (8-16) 12/05/19 07:00 BUN 43.1 mg/dL (7-18) H 12/05/19 07:00 Creatinine 2.4 mg/dL (0.55-1.3) H 12/05/19 07:00 Random Glucose 234 mg/dL (74-106) H 12/05/19 07:00 Calcium 9.0 mg/dL (8.5-10.1) 12/05/19 07:00 Total Bilirubin 0.3 mg/dL (0.2-1) 12/05/19 07:00 AST 14 U/L (15-37) L 12/05/19 07:00 ALT 23 U/L (13-61) 12/05/19 07:00 Alkaline Phosphatase 77 U/L (45-117) 12/05/19 07:00 Total Protein 5.9 g/dl (6.4-8.2) L 12/05/19 07:00 Albumin 2.9 g/dl (3.4-5.0) L 12/05/19 07:00 CARDIAC ENZYMES Creatine Kinase 43 U/L (26-192) 12/02/19 14:17 Troponin I 0.02 ng/ml (0.00-0.05) 12/02/19 14:17 Current Medications Generic Name Dose Route Start Last Admin Trade Name Abelq PRN Reason Stop Dose Admin Aspirin 81 mg 12/03/19 10:00 12/05/19 11:17 Asa - PO 81 mg DAILY JAS[facility]N Administration Carvedilol 3.125 mg 12/02/19 22:00 12/05/19 11:17 Coreg - PO 3.125 mg BID JASMYN Administration Clopidogrel Bisulfate 75 mg 12/03/19 10:00 12/05/19 11:17 Plavix - PO 75 mg DAILY JAS[facility]N Administration Folic Acid 1 mg 12/03/19 10:00 12/05/19 11:17 Folic Acid - PO 1 mg DAILY [facility] Administration Gabapentin 100 mg 12/02/19 22:00 12/05/19 14:36 Neurontin - PO 100 mg TID JASMYN Administration Heparin Sodium (Porcine) 5,000 unit 12/02/19 22:00 12/05/19 14:36 Heparin - SQ 5,000 unit TID [facility] Administration Ceftriaxone Sodium 1 gm/ 50 mls @ 100 mls/hr 12/02/19 18:30 12/05/19 11:16 Dextrose IVPB 100 mls/hr DAILY [facility] Administration Insulin Aspart 1 vial 12/02/19 22:00 12/05/19 17:22 Novolog Vial Sliding Scale - SQ 10 units ACHS J[facility] Administration Protocol Pantoprazole Sodium 40 mg 12/05/19 10:00 12/05/19 11:17 Protonix - PO 40 mg DAILY [facility] Administration Rosuvastatin Calcium 10 mg 12/02/19 22:00 12/04/19 21:56 Crestor - PO 10 mg HS JAS[facility] Administration Home Medications Medication Instructions Recorded Clopidogrel Bisulfate [Plavix] 75 mg PO DAILY 02/08/18 Carvedilol 3.125 mg PO BID 05/15/19 Ergocalciferol (Vitamin D2) 1 cap PO WEEKLY 05/16/19 [Vitamin D2] Gabapentin 100 mg PO TID 05/16/19 Aspirin [ASA -] 81 mg PO DAILY tab.chew 05/22/19 Amlodipine Besylate 5 mg PO DAILY 12/02/19 Folic Acid 1 mg PO DAILY 12/02/19 Lisinopril [Zestril] 2.5 mg PO DAILY 12/02/19 Rosuvastatin Calcium [Crestor] 40 mg PO HS 12/02/19 Cyanocobalamin Vit B-12 Inj. 1 ml MONTHLY 12/04/19 [Vitamin B12 Injection -] Insulin (Novolog) [Novolog -] 200 units TID 12/04/19 Insulin Detemir [Levemir Flextouch] 34 units TID 12/04/19 ASSESSMENT AND PLAN: This patient is an 84yof with pmhx of htn, hld, ckd, dm, tia, cad, chf, pvd, and gerd who is admitted for having SOB and TORRES and was found to have UTI. #Acute on chronic renal failure: cr 2.6-->2.5-->2.4 will continue to monitor , nephro on the case #s/p hyperkalemia 4.8 today , follow #Acute UTI: Recent history of VRE and E. coli urine culture, on IV ceftriaxone, follow the cx , Id on the case #HTN: continue home meds except for lisinopril #History of CAD/TIA: continue home clopidogrel, aspirin, statin #Pending covid DVTPpx: sub q heparin patient tolerated diet well.
--- NOTE | 2019-12-05 19:53 | PN ---
Physical Exam: SUBJECTIVE: No overnight events. Patient seen and examined. Denies SOB, N/V. tolerating soft diet OBJECTIVE: Vital Signs Period Temp Pulse Resp BP Sys/Mckeon Pulse Ox Last 24 Hr 97.4 F-98.8 F 58-73 18-22 111-160/46-82 92-96 GENERAL: The patient is awake, alert, and fully oriented, in no acute distress. HEENT: NT, NC,extraocular movements intact, No ptosis. MMM LUNGS: Breath sounds diminished b/l bases, but improved since yesterday; CTAB, no wheezes, no crackles, no accessory muscle use. HEART: Regular rate and rhythm, S1, S2, systolic murmur most prominent in aortic area; no radiation to carotids ABDOMEN: Soft, nontender, nondistended,no guarding, no rebound; decreased bowel sounds EXTREMITIES: 2+ pulses, warm, well-perfused, no edema. NEUROLOGICAL: Normal speech, gait not observed. PSYCH: Normal mood, normal affect. SKIN: Warm, dry, normal turgor, no rashes or lesions noted Laboratory Results - last 24 hr 12/04/19 12/05/19 12/05/19 21:16 06:28 07:00 WBC 8.1 RBC 3.30 L Hgb 9.9 L Hct 30.4 L MCV 92.1 MCH 29.9 MCHC 32.4 RDW 14.9 Plt Count 262 MPV 9.8 Absolute Neuts (auto) 4.3 Neutrophils % 52.9 Lymphocytes % 34.4 Monocytes % 6.6 Eosinophils % 5.3 H Basophils % 0.8 Nucleated RBC % 0 Retic Count Sodium Potassium Chloride Carbon Dioxide Anion Gap BUN Creatinine Est GFR (CKD-EPI)AfAm Est GFR (CKD-EPI)NonAf POC Glucometer 248 225 Random Glucose Hemoglobin A1c % Calcium Phosphorus Magnesium Iron TIBC Iron Saturation Unsaturated IBC Ferritin Total Bilirubin AST ALT Alkaline Phosphatase C-Reactive Protein Total Protein Albumin Total Amylase Lipase TSH 12/05/19 12/05/19 12/05/19 07:00 07:00 07:00 WBC RBC Hgb Hct MCV MCH MCHC RDW Plt Count MPV Absolute Neuts (auto) Neutrophils % Lymphocytes % Monocytes % Eosinophils % Basophils % Nucleated RBC % Retic Count 2.41 H Sodium 142 Potassium 4.8 Chloride 110 H Carbon Dioxide 22 Anion Gap 10 BUN 43.1 H Creatinine 2.4 H Est GFR (CKD-EPI)AfAm 20.79 Est GFR (CKD-EPI)NonAf 17.94 POC Glucometer Random Glucose 234 H Hemoglobin A1c % Calcium 9.0 Phosphorus 4.3 Magnesium 2.4 Iron 75 TIBC 231 L Iron Saturation 32 Unsaturated IBC 156 L Ferritin 192.0 Total Bilirubin 0.3 AST 14 L ALT 23 Alkaline Phosphatase 77 C-Reactive Protein 0.8 H Total Protein 5.9 L Albumin 2.9 L Total Amylase 19 L Lipase 112 TSH 2.60 12/05/19 12/05/19 12/05/19 07:00 11:35 17:12 WBC RBC Hgb Hct MCV MCH MCHC RDW Plt Count MPV Absolute Neuts (auto) Neutrophils % Lymphocytes % Monocytes % Eosinophils % Basophils % Nucleated RBC % Retic Count Sodium Potassium Chloride Carbon Dioxide Anion Gap BUN Creatinine Est GFR (CKD-EPI)AfAm Est GFR (CKD-EPI)NonAf POC Glucometer 218 355 Random Glucose Hemoglobin A1c % 9.5 H Calcium Phosphorus Magnesium Iron TIBC Iron Saturation Unsaturated IBC Ferritin Total Bilirubin AST ALT Alkaline Phosphatase C-Reactive Protein Total Protein Albumin Total Amylase Lipase TSH Active Medications Generic Name Dose Route Start Last Admin Trade Name Freq PRN Reason Stop Dose Admin Aspirin 81 mg 12/03/19 10:00 12/05/19 11:17 Asa - PO 81 mg DAILY JASMYN Administration Carvedilol 3.125 mg 12/02/19 22:00 12/05/19 11:17 Coreg - PO 3.125 mg BID JASMYN Administration Clopidogrel Bisulfate 75 mg 12/03/19 10:00 12/05/19 11:17 Plavix - PO 75 mg DAILY JASMYN Administration Folic Acid 1 mg 12/03/19 10:00 12/05/19 11:17 Folic Acid - PO 1 mg DAILY JASMYN Administration Gabapentin 100 mg 12/02/19 22:00 12/05/19 14:36 Neurontin - PO 100 mg TID JASMYN Administration Heparin Sodium (Porcine) 5,000 unit 12/02/19 22:00 12/05/19 14:36 Heparin - SQ 5,000 unit TID JASMYN Administration Ceftriaxone Sodium 1 gm/ 50 mls @ 100 mls/hr 12/02/19 18:30 12/05/19 11:16 Dextrose IVPB 100 mls/hr DAILY JASMYN Administration Insulin Aspart 1 vial 12/02/19 22:00 12/05/19 17:22 Novolog Vial Sliding Scale - SQ 10 units ACHS JASMYN Administration Protocol Pantoprazole Sodium 40 mg 12/05/19 10:00 12/05/19 11:17 Protonix - PO 40 mg DAILY JASMYN Administration Rosuvastatin Calcium 10 mg 12/02/19 22:00 12/04/19 21:56 Crestor - PO 10 mg HS JASMYN Administration ASSESSMENT/PLAN: 84 YO F PMH GERD, TIA, CKD, HTN, IDDM, VRE UTI (06/2019), diastolic CHF w/ preserved EF, CAD s/p triple bypass (10/2018) p/w SOB X 2d, orthopnea, and worsening b/l LE edema X 3 wks, a witnessed fall, & N/V for 2 wks. #SOB 2/2 CHF exacerbation VS aortic stenosis VS TOR -LE duplex negative for DVT - lung/heart exam are not suggestive of fluid overload expected in CHF exacerbation -polysomnography outpatient for TOR -amlodipine 5 mg PO Daily (home) will be HELD due to b/l lower extremity edema -f/u Is and Os & wt changes #ULISES on CKD -nephro c/s appreciated. -c/w holding home lisinopril 2.5 mg PO daily, hold off Lasix #Dysphagia (N/V) 2/2 possibly to Gastroparesis vs gastritis -QTC: 414; can order zofran again if needed. -GI c/s appreciated. Pt is not consistently having N/V, so likely no 2/2 DM gasroparesis. Gasric emptying study if N/V persist. -Modified barium swallow today for pt's choking episodes. -empiric pantoprazole 40 mg PO daily -US liver to evaluate for hepatic steatosis #Normocytic Anemia -Low H&H, stable at 9.9/30.4. Iron studies show that MCV, iron, iron saturation, and ferritin are NORMAL. TIBC & Unsaturated IBC are LOW. -GI c/s appreciated. GI counseled colon cancer screening/EGD to evaluate her anemia,. However, pt refused. #UTI -h/o UTI VRE in Jun 2019. h/o dysuria for weeks. UA: bacteria >10 K, WBC 2713, epith 8, blood 2+, protein 2+, glucose 2+ -s/p Linezolid 600 mg in 300 IVPB was given once. -c/w Ceftriaxone 1 gm in D5W -ucx: lactose-fermenting neg bacilli #Hyperkalemia - RESOLVED. c/w monitoring bmp #diastolic CHFpEF -ECHO (July 2019): LVEF 65%, mild LVH. Moderate-severe aortic stenosis (AV area 1.8 cm2, gradient 17 mmHg). exam suggests euvolemia. -c/w home carvedilol 3.125 mg BID -hold home lisinopril 2.5 mg PO Daily due to ULISES #HTN -c/w home carvedilol 3.125 mg BID -hold home amlodipine 5 mg PO daily 2/ LE edema -hold home lisinopril 2.5 mg PO Daily due to ULISES #HLD c/w home rosuvastatin 40 mg PO HS #IDDM -ISS ACHS -BGM #CAD s/p CABG & 4 stents -c/w home ASA 81 mg PO daily -c/w home rosuvastatin 40 mg PO HS #DVT PPX SQH #FEN -No IV fluids -monitor lytes; K+ was elevated on admission -tolerating soft diet. c/w soft diet Visit type - Emergency Visit Emergency Visit: Yes ED Registration Date: 12/02/19 Care time: The patient presented to the Emergency Department on the above date and was hospitalized for further evaluation of their emergent condition. - New Patient This patient is new to me today: No - Critical Care Critical Care patient: No - Medication Review Med list reviewed for High Risk Meds patients 65 and older: Yes ATTENDING PHYSICIAN STATEMENT I saw and evaluated the patient. I reviewed the resident's note and discussed the case with the resident. I agree with the resident's findings and plan as documented. SUBJECTIVE: OBJECTIVE: ASSESSMENT AND PLAN:
[2019-12-05] MEDS: ROSUVASTATIN CA 10 MG TABLET (FP) PO SCH (21:22)
[2019-12-06] MEDS: GABAPENTIN 100 MG CAPSULE PO SCH ×3 (06:21→22:06)
[2019-12-06] MEDS: HEPARIN NA (PORCINE) 5,000 UNITS/ML 1ML VIAL SQ SCH ×3 (06:21→22:07)
[2019-12-06] MEDS: INSULIN SLIDING SCALE (NOVOLOG) 1 VIAL SQ SCH ×4 (06:22→22:07)
--- NOTE | 2019-12-06 07:41 | PN.GI ---
GI Progress Note Subjective: no new complaints - doing okay - no report of n/v - Objective Vital Signs: Vital Signs Temperature 97.4 F L 12/05/19 19:29 Pulse Rate 58 L 12/05/19 19:29 Respiratory Rate 20 12/05/19 20:35 Blood Pressure 111/46 L 12/05/19 19:29 O2 Sat by Pulse Oximetry (%) 92 L 12/05/19 20:35 Constitutional: Well Nourished, No Distress, Calm Cardiovascular: Yes: WNL Respiratory: Yes: WNL, Regular, CTA Bilaterally Gastrointestinal Inspection: Yes: WNL ...Auscultate: Yes: Normoactive Bowel Sounds Edema: No Labs: CBC, BMP 12/05/19 07:00 12/05/19 07:00 Problem List - Problems (1) Dyspepsia Assessment/Plan: PPI therapy diet as tolerated will follow peripherally Code(s): R10.13 - EPIGASTRIC PAIN
[2019-12-06] MEDS ORDERED: cefTRIAXone SODIUM 1 GM VIAL ONE (09:55)
[2019-12-06] MEDS ORDERED: DEXTROSE 5%-WATER - 50 ML IVPB ONE (09:56)
[2019-12-06] MEDS: ASPIRIN 81 MG CHEWABLE TABLETS PO SCH (10:00)
[2019-12-06] MEDS: CARVEDILOL 3.125 MG TABLET (FP) PO SCH ×2 (10:00→22:06)
[2019-12-06] MEDS: FOLIC ACID 1 MG TABLET (FP) PO SCH (10:00)
[2019-12-06] MEDS: PANTOPRAZOLE 40 MG TABLET PO SCH (10:00)
[2019-12-06] MEDS: CLOPIDOGREL BISULFATE 75 MG TABLET (FP) PO SCH (10:00)
[2019-12-06] MEDS: CEFTRIAXONE 1 GM in DEXTROSE 5%-WATER - 50 ML IVPB SCH (10:01)
[2019-12-06] MEDS ORDERED: PT OWN MED DRAWER 7, Y5N ONE (10:14)
--- NOTE | 2019-12-06 10:52 | PN ---
Progress Note (short form) - Note Progress Note: Patient is comfortable with no acute distress. Vital Signs Temperature 97.4 F L 12/05/19 19:29 Pulse Rate 58 L 12/05/19 19:29 Respiratory Rate 20 12/05/19 20:35 Blood Pressure 111/46 L 12/05/19 19:29 O2 Sat by Pulse Oximetry (%) 92 L 12/05/19 20:35 GENERAL: The patient is awake, alert, and fully oriented, in no acute distress. HEAD: Normal with no signs of trauma. EYES: PERRL, extraocular movements intact, sclera anicteric, conjunctiva clear. ENT: Ears normal, oropharynx clear without exudates, moist mucous membranes. NECK: Trachea midline, full range of motion, supple. LUNGS: Breath sounds equal, clear to auscultation bilaterally, no wheezes, no crackles, no accessory muscle use. HEART: Regular rate and rhythm, S1, S2 without murmur, rub or gallop. ABDOMEN: Soft, NT,ND, normoactive bowel sounds, no guarding, no rebound, no hepatosplenomegaly, no masses. EXTREMITIES: 2+ pulses, warm, well-perfused, no edema. NEUROLOGICAL: Cranial nerves II through XII grossly intact. Normal speech, gait not observed. PSYCH: Normal mood, normal affect. SKIN: Warm, dry, normal turgor, no rashes or lesions noted CBCD WBC 8.1 K/mm3 (4.0-10.0) 12/05/19 07:00 RBC 3.30 M/mm3 (3.60-5.2) L 12/05/19 07:00 Hgb 9.9 GM/dL (10.7-15.3) L 12/05/19 07:00 Hct 30.4 % (32.4-45.2) L 12/05/19 07:00 MCV 92.1 fl (80-96) 12/05/19 07:00 MCHC 32.4 g/dl (32.0-36.0) 12/05/19 07:00 RDW 14.9 % (11.6-15.6) 12/05/19 07:00 Plt Count 262 K/MM3 (134-434) 12/05/19 07:00 MPV 9.8 fl (7.5-11.1) 12/05/19 07:00 CMP Sodium 142 mmol/L (136-145) 12/05/19 07:00 Potassium 4.8 mmol/L (3.5-5.1) 12/05/19 07:00 Chloride 110 mmol/L (98-107) H 12/05/19 07:00 Carbon Dioxide 22 mmol/L (21-32) 12/05/19 07:00 Anion Gap 10 MMOL/L (8-16) 12/05/19 07:00 BUN 43.1 mg/dL (7-18) H 12/05/19 07:00 Creatinine 2.4 mg/dL (0.55-1.3) H 12/05/19 07:00 Random Glucose 234 mg/dL (74-106) H 12/05/19 07:00 Calcium 9.0 mg/dL (8.5-10.1) 12/05/19 07:00 Total Bilirubin 0.3 mg/dL (0.2-1) 12/05/19 07:00 AST 14 U/L (15-37) L 12/05/19 07:00 ALT 23 U/L (13-61) 12/05/19 07:00 Alkaline Phosphatase 77 U/L (45-117) 12/05/19 07:00 Total Protein 5.9 g/dl (6.4-8.2) L 12/05/19 07:00 Albumin 2.9 g/dl (3.4-5.0) L 12/05/19 07:00 CARDIAC ENZYMES Creatine Kinase 43 U/L (26-192) 12/02/19 14:17 Troponin I 0.02 ng/ml (0.00-0.05) 12/02/19 14:17 Current Medications Generic Name Dose Route Start Last Admin Trade Name Freq PRN Reason Stop Dose Admin Aspirin 81 mg 12/03/19 10:00 12/06/19 10:00 Asa - PO 81 mg DAILY JASMYN Administration Carvedilol 3.125 mg 12/02/19 22:00 12/06/19 10:00 Coreg - PO 3.125 mg BID JASMYN Administration Clopidogrel Bisulfate 75 mg 12/03/19 10:00 12/06/19 10:00 Plavix - PO 75 mg DAILY JASMYN Administration Folic Acid 1 mg 12/03/19 10:00 12/06/19 10:00 Folic Acid - PO 1 mg DAILY JASMYN Administration Gabapentin 100 mg 12/02/19 22:00 12/06/19 06:21 Neurontin - PO 100 mg TID JASMYN Administration Heparin Sodium (Porcine) 5,000 unit 12/02/19 22:00 12/06/19 06:21 Heparin - SQ 5,000 unit TID JASMYN Administration Ceftriaxone Sodium 1 gm/ 50 mls @ 100 mls/hr 12/02/19 18:30 12/06/19 10:01 Dextrose IVPB 100 mls/hr DAILY JASMYN Administration Insulin Aspart 1 vial 12/02/19 22:00 12/06/19 06:22 Novolog Vial Sliding Scale - SQ 6 units ACHS JASMYN Administration Protocol Pantoprazole Sodium 40 mg 12/05/19 10:00 12/06/19 10:00 Protonix - PO 40 mg DAILY JASMYN Administration Rosuvastatin Calcium 10 mg 12/02/19 22:00 12/05/19 21:22 Crestor - PO 10 mg HS JASMYN Administration Home Medications Medication Instructions Recorded Clopidogrel Bisulfate [Plavix] 75 mg PO DAILY 02/08/18 Carvedilol 3.125 mg PO BID 05/15/19 Ergocalciferol (Vitamin D2) 1 cap PO WEEKLY 05/16/19 [Vitamin D2] Gabapentin 100 mg PO TID 05/16/19 Aspirin [ASA -] 81 mg PO DAILY tab.chew 05/22/19 Amlodipine Besylate 5 mg PO DAILY 12/02/19 Folic Acid 1 mg PO DAILY 12/02/19 Lisinopril [Zestril] 2.5 mg PO DAILY 12/02/19 Rosuvastatin Calcium [Crestor] 40 mg PO HS 12/02/19 Cyanocobalamin Vit B-12 Inj. 1 ml MONTHLY 12/04/19 [Vitamin B12 Injection -] Insulin (Novolog) [Novolog -] 200 units TID 12/04/19 Insulin Detemir [Levemir Flextouch] 34 units TID 12/04/19 Microbiology 12/02/19 16:44 Urine - Urine Clean Catch Urine Culture - Final Escherichia Coli Assessment and plaN: This patient is an 84yof with pmhx of htn, hld, ckd, dm, tia, cad, chf, pvd, and gerd who is admitted for having SOB and TORRES and was found to have UTI. #Acute UTI: On IV antioibotics continue Rocephin #Acute on chronic renal failure: cr 2.6-->2.5-->2.4 continue to monitor , nephro on the case #s/p hyperkalemia. will repeat the labs in am #Acute UTI: Recent history of VRE and E. coli urine culture, on IV ceftriaxone, follow the cx , Id on the case #HTN: continue home meds except for lisinopril #History of CAD/TIA: continue home clopidogrel, aspirin, statin #Pending covid DVTPpx: sub q heparin patient tolerated diet well. Visit type - Emergency Visit Emergency Visit: Yes ED Registration Date: 12/02/19 Care time: The patient presented to the Emergency Department on the above date and was hospitalized for further evaluation of their emergent condition. - New Patient This patient is new to me today: No - Critical Care Critical Care patient: No - Discharge Referral Referred to [facility] Med P.C.: No
--- NOTE | 2019-12-06 13:39 | PN ---
Progress Note (short form) - Note Progress Note: Resting in NAD on RA. No CP or SOB. Snoring overnight. Intake & Output 12/03/19 12/04/19 12/05/19 12/06/19 23:59 23:59 23:59 23:59 Intake Total 290 350 460 110 Balance 290 350 460 110 Last Vital Signs Temp Pulse Resp BP Pulse Ox 98.4 F 68 20 130/70 96 12/06/19 10:00 12/06/19 10:00 12/06/19 12:42 12/06/19 10:00 12/06/19 12:42 Active Medications Aspirin (Asa -) 81 mg PO DAILY [facility] Last Admin: 12/06/19 10:00 Dose: 81 mg Documented by: Carvedilol (Coreg -) 3.125 mg PO BID [facility] Last Admin: 12/06/19 10:00 Dose: 3.125 mg Documented by: Clopidogrel Bisulfate (Plavix -) 75 mg PO DAILY [facility] Last Admin: 12/06/19 10:00 Dose: 75 mg Documented by: Folic Acid (Folic Acid -) 1 mg PO DAILY [facility] Last Admin: 12/06/19 10:00 Dose: 1 mg Documented by: Gabapentin (Neurontin -) 100 mg PO TID [facility] Last Admin: 12/06/19 13:05 Dose: 100 mg Documented by: Heparin Sodium (Porcine) (Heparin -) 5,000 unit SQ TID [facility] Last Admin: 12/06/19 13:05 Dose: 5,000 unit Documented by: Ceftriaxone Sodium 1 gm/ (Dextrose) 50 mls @ 100 mls/hr IVPB DAILY [facility] Last Admin: 12/06/19 10:01 Dose: 100 mls/hr Documented by: Insulin Aspart (Novolog Vial Sliding Scale -) 1 vial SQ [facility]; Protocol Last Admin: 12/06/19 11:29 Dose: 6 units Documented by: Pantoprazole Sodium (Protonix -) 40 mg PO DAILY [facility] Last Admin: 12/06/19 10:00 Dose: 40 mg Documented by: Rosuvastatin Calcium (Crestor -) 10 mg PO HS [facility] Last Admin: 12/05/19 21:22 Dose: 10 mg Documented by: Gen: NAD at rest Heart: RRR Lung: decreased breath sounds at the bases Abd: soft, nontender Ext: no edema A/P UTI LV Diastolic Dysfunction CAD s/p CABG CKD PAD HTN Hyperlipidemia h/o TIA High suspicion for OSAS - ABX - monitor urine output, creatinine - advance diet - Sleep testing - DVT prophylaxis Dr Chatterjee TOR Screen - TOR History Previously diagnosed with Sleep Apnea: No If Yes, currently using CPAP to treat your TOR: No - SNORING Do you snore loudly (enough to be heard thru closed doors)?: Yes - TIRED Do you often feel tired, fatigued, or sleepy during daytime?: Yes - OBSERVED Has anyone observed you stop breathing during your sleep?: Yes - BLOOD PRESSURE Do you have or are being treated for high blood pressure?: Yes - BMI Answer Y if weight exceeds amount listed for your height: Yes .: HEIGHT & WEIGHT (lbs): 4'10" 167lbs; 4'11" 175 lbs; 5'0" 179lbs;. 5'1" 185lbs; 5'2" 191lbs; 5'3" 197lbs;. 5'4" 204lbs; 5'5" 210lbs; 5'6" 216lbs;. 5'7" 223lbs; 5'8" 230lbs; 5'9" 237lbs;. 5'10" 243lbs; 5'11" 250lbs; 6' 258lbs;. 6'1" 265lbs; 6'2" 272lbs; 6'3" 279lbs;. 6'4" 287lbs; 6'5" 295lbs - AGE Is your age over 50 yrs old?: Yes - NECK CIRCUMFERENCE Neck Circumference 40cm: Yes - GENDER Male: No - SCORE Total Score: 7 Score Interpretation: High Risk of TOR .: Interpretation: Score 0-2: Low Risk TOR. Score 3-4: Intermediate Risk TOR. Score 5-8: High Risk TOR
--- NOTE | 2019-12-06 14:01 | PN ---
Progress Note (short form) - Note Progress Note: 1. ULISES on CKD 2. CKD stage 3 3. Renal Cyst 4. chf 5. hld 6. proteinuria 7. UTI Active Medications Aspirin (Asa -) 81 mg PO DAILY [facility] Last Admin: 12/06/19 10:00 Dose: 81 mg Documented by: Carvedilol (Coreg -) 3.125 mg PO BID [facility] Last Admin: 12/06/19 10:00 Dose: 3.125 mg Documented by: Clopidogrel Bisulfate (Plavix -) 75 mg PO DAILY [facility] Last Admin: 12/06/19 10:00 Dose: 75 mg Documented by: Folic Acid (Folic Acid -) 1 mg PO DAILY [facility] Last Admin: 12/06/19 10:00 Dose: 1 mg Documented by: Gabapentin (Neurontin -) 100 mg PO TID [facility] Last Admin: 12/06/19 13:05 Dose: 100 mg Documented by: Heparin Sodium (Porcine) (Heparin -) 5,000 unit SQ TID [facility] Last Admin: 12/06/19 13:05 Dose: 5,000 unit Documented by: Ceftriaxone Sodium 1 gm/ (Dextrose) 50 mls @ 100 mls/hr IVPB DAILY [facility] Last Admin: 12/06/19 10:01 Dose: 100 mls/hr Documented by: Insulin Aspart (Novolog Vial Sliding Scale -) 1 vial SQ [facility]; Protocol Last Admin: 12/06/19 11:29 Dose: 6 units Documented by: Pantoprazole Sodium (Protonix -) 40 mg PO DAILY [facility] Last Admin: 12/06/19 10:00 Dose: 40 mg Documented by: Rosuvastatin Calcium (Crestor -) 10 mg PO HS [facility] Last Admin: 12/05/19 21:22 Dose: 10 mg Documented by: Last Vital Signs Temp Pulse Resp BP Pulse Ox 98.4 F 68 20 130/70 96 12/06/19 10:00 12/06/19 10:00 12/06/19 12:42 12/06/19 10:00 12/06/19 12:42 CBC, BMP 12/05/19 07:00 12/05/19 07:00 ULISES improving Plan- labs in am
[2019-12-06] MEDS ORDERED: INSULIN (NOVOLOG) ASPART 100 UNITS/ML 10ML VIAL ONE (16:53)
[2019-12-06] MEDS: ROSUVASTATIN CA 10 MG TABLET (FP) PO SCH (22:06)
[2019-12-07] MEDS: HEPARIN NA (PORCINE) 5,000 UNITS/ML 1ML VIAL SQ SCH ×3 (07:08→21:55)
[2019-12-07] MEDS: GABAPENTIN 100 MG CAPSULE PO SCH ×3 (07:08→21:55)
[2019-12-07] MEDS: INSULIN SLIDING SCALE (NOVOLOG) 1 VIAL SQ SCH ×4 (07:11→21:55)
[2019-12-07 09:08] LABS: BASO % 0.7 % (0-2.0); EOS % 5.3 % (0-4.5); HEMATOCRIT 29.9 % (32.4-45.2); HEMOGLOBIN 9.6 GM/dL (10.7-15.3); LYMPH % 35.2 % (8-40); MCH 29.7 pg (25.7-33.7); MCHC 32.1 g/dl (32.0-36.0); MEAN CELL VOLUME 92.7 fl (80-96); MEAN PLT VOLUME 10.5 fl (7.5-11.1); MONO % 5.7 % (3.8-10.2); NEUT % 53.1 % (42.8-82.8); PLATELET COUNT 261 K/MM3 (134-434); RBC 3.22 M/mm3 (3.60-5.2); RDW 14.7 % (11.6-15.6); WHITE BLOOD COUNT 8.8 K/mm3 (4.0-10.0)
[2019-12-07 09:37] LABS: ALBUMIN 2.8 g/dl (3.4-5.0); BILIRUBIN,TOTAL 0.5 mg/dL (0.2-1); BLOOD UREA NITROGEN 43.9 mg/dL (7-18); CREATININE 2.4 mg/dL (0.55-1.3); MAGNESIUM 2.4 mg/dL (1.8-2.4); PHOSPHOROUS 3.7 mg/dL (2.5-4.9); POTASSIUM 4.8 mmol/L (3.5-5.1); TOT PROT 5.9 g/dl (6.4-8.2)
[2019-12-07] MEDS ORDERED: DEXTROSE 5%-WATER - 50 ML IVPB ONE (09:55)
[2019-12-07] MEDS ORDERED: cefTRIAXone SODIUM 1 GM VIAL ONE (09:55)
[2019-12-07] MEDS: ASPIRIN 81 MG CHEWABLE TABLETS PO SCH (09:59)
[2019-12-07] MEDS: CLOPIDOGREL BISULFATE 75 MG TABLET (FP) PO SCH (09:59)
[2019-12-07] MEDS: CEFTRIAXONE 1 GM in DEXTROSE 5%-WATER - 50 ML IVPB SCH (09:59)
[2019-12-07] MEDS: PANTOPRAZOLE 40 MG TABLET PO SCH (09:59)
[2019-12-07] MEDS: CARVEDILOL 3.125 MG TABLET (FP) PO SCH ×2 (09:59→21:55)
[2019-12-07] MEDS: FOLIC ACID 1 MG TABLET (FP) PO SCH (09:59)
[2019-12-07] MEDS ORDERED: INSULIN (NOVOLOG) ASPART 100 UNITS/ML 10ML VIAL ONE ×3 (11:15→21:15)
--- NOTE | 2019-12-07 13:48 | PN ---
Progress Note (short form) - Note Progress Note: Resting in NAD on RA. No CP or SOB. Snoring overnight. Intake & Output 12/04/19 12/05/19 12/06/19 12/07/19 23:59 23:59 23:59 23:59 Intake Total 350 460 110 0 Balance 350 460 110 0 Last Vital Signs Temp Pulse Resp BP Pulse Ox 98.7 F 61 20 142/66 96 12/07/19 10:00 12/07/19 10:00 12/07/19 12:00 12/07/19 10:00 12/07/19 12:00 Active Medications Aspirin (Asa -) 81 mg PO DAILY [facility] Last Admin: 12/07/19 09:59 Dose: 81 mg Documented by: Carvedilol (Coreg -) 3.125 mg PO BID [facility] Last Admin: 12/07/19 09:59 Dose: 3.125 mg Documented by: Clopidogrel Bisulfate (Plavix -) 75 mg PO DAILY [facility] Last Admin: 12/07/19 09:59 Dose: 75 mg Documented by: Folic Acid (Folic Acid -) 1 mg PO DAILY [facility] Last Admin: 12/07/19 09:59 Dose: 1 mg Documented by: Gabapentin (Neurontin -) 100 mg PO TID [facility] Last Admin: 12/07/19 13:40 Dose: 100 mg Documented by: Heparin Sodium (Porcine) (Heparin -) 5,000 unit SQ TID [facility] Last Admin: 12/07/19 13:40 Dose: 5,000 unit Documented by: Ceftriaxone Sodium 1 gm/ (Dextrose) 50 mls @ 100 mls/hr IVPB DAILY [facility] Last Admin: 12/07/19 09:59 Dose: 100 mls/hr Documented by: Insulin Aspart (Novolog Vial Sliding Scale -) 1 vial SQ ACHS [facility]; Protocol Last Admin: 12/07/19 11:25 Dose: 8 units Documented by: Pantoprazole Sodium (Protonix -) 40 mg PO DAILY [facility] Last Admin: 12/07/19 09:59 Dose: 40 mg Documented by: Rosuvastatin Calcium (Crestor -) 10 mg PO HS [facility] Last Admin: 12/06/19 22:06 Dose: 10 mg Documented by: Gen: NAD at rest Heart: RRR Lung: decreased breath sounds at the bases Abd: soft, nontender Ext: no edema Laboratory Results - last 24 hr 12/06/19 12/06/19 12/07/19 16:49 22:05 07:10 WBC RBC Hgb Hct MCV MCH MCHC RDW Plt Count MPV Absolute Neuts (auto) Neutrophils % Lymphocytes % Monocytes % Eosinophils % Basophils % Nucleated RBC % Sodium Potassium Chloride Carbon Dioxide Anion Gap BUN Creatinine Est GFR (CKD-EPI)AfAm Est GFR (CKD-EPI)NonAf POC Glucometer 304 299 301 Random Glucose Calcium Phosphorus Magnesium Total Bilirubin AST ALT Alkaline Phosphatase Total Protein Albumin 12/07/19 12/07/19 12/07/19 07:30 07:30 11:12 WBC 8.8 RBC 3.22 L Hgb 9.6 L Hct 29.9 L MCV 92.7 MCH 29.7 MCHC 32.1 RDW 14.7 Plt Count 261 MPV 10.5 Absolute Neuts (auto) 4.7 Neutrophils % 53.1 Lymphocytes % 35.2 Monocytes % 5.7 Eosinophils % 5.3 H Basophils % 0.7 Nucleated RBC % 0 Sodium 140 Potassium 4.8 Chloride 108 H Carbon Dioxide 22 Anion Gap 10 BUN 43.9 H Creatinine 2.4 H Est GFR (CKD-EPI)AfAm 20.79 Est GFR (CKD-EPI)NonAf 17.94 POC Glucometer 311 Random Glucose 281 H Calcium 9.0 Phosphorus 3.7 Magnesium 2.4 Total Bilirubin 0.5 AST 13 L ALT 20 Alkaline Phosphatase 78 Total Protein 5.9 L Albumin 2.8 L A/P UTI LV Diastolic Dysfunction CAD s/p CABG CKD PAD HTN Hyperlipidemia h/o TIA High suspicion for OSAS - ABX - monitor urine output, creatinine - advance diet - Sleep testing - DVT prophylaxis Dr Chatterjee
--- NOTE | 2019-12-07 13:57 | PN ---
Progress Note (short form) - Note Progress Note: 1. ULISES on CKD 2. CKD stage 3 3. Renal Cyst 4. chf 5. hld 6. proteinuria 7. UTI Active Medications Aspirin (Asa -) 81 mg PO DAILY [facility] Last Admin: 12/07/19 09:59 Dose: 81 mg Documented by: Carvedilol (Coreg -) 3.125 mg PO BID [facility] Last Admin: 12/07/19 09:59 Dose: 3.125 mg Documented by: Clopidogrel Bisulfate (Plavix -) 75 mg PO DAILY [facility] Last Admin: 12/07/19 09:59 Dose: 75 mg Documented by: Folic Acid (Folic Acid -) 1 mg PO DAILY [facility] Last Admin: 12/07/19 09:59 Dose: 1 mg Documented by: Gabapentin (Neurontin -) 100 mg PO TID [facility] Last Admin: 12/07/19 13:40 Dose: 100 mg Documented by: Heparin Sodium (Porcine) (Heparin -) 5,000 unit SQ TID [facility] Last Admin: 12/07/19 13:40 Dose: 5,000 unit Documented by: Ceftriaxone Sodium 1 gm/ (Dextrose) 50 mls @ 100 mls/hr IVPB DAILY [facility] Last Admin: 12/07/19 09:59 Dose: 100 mls/hr Documented by: Insulin Aspart (Novolog Vial Sliding Scale -) 1 vial SQ [facility]; Protocol Last Admin: 12/07/19 11:25 Dose: 8 units Documented by: Pantoprazole Sodium (Protonix -) 40 mg PO DAILY [facility] Last Admin: 12/07/19 09:59 Dose: 40 mg Documented by: Rosuvastatin Calcium (Crestor -) 10 mg PO HS [facility] Last Admin: 12/06/19 22:06 Dose: 10 mg Documented by: Last Vital Signs Temp Pulse Resp BP Pulse Ox 98.7 F 61 20 142/66 96 12/07/19 10:00 12/07/19 10:00 12/07/19 12:00 12/07/19 10:00 12/07/19 12:00 CBC, BMP 12/07/19 07:30 12/07/19 07:30 CBC, BMP 12/05/19 07:00 12/05/19 07:00 ULISES on CKD improved renal function near baseline Plan- labs in am
--- NOTE | 2019-12-07 16:16 | PN ---
Physical Exam: SUBJECTIVE: Patient seen and examined at bedside. pt has no acute complaints . denies n/v. OBJECTIVE: Vital Signs Period Temp Pulse Resp BP Sys/Mckeon Pulse Ox Last 24 Hr 97.8 F-98.7 F 61-72 18-20 133-142/49-66 92-99 GENERAL: The patient is awake, alert, and fully oriented, in no acute distress. HEAD: Normal with no signs of trauma. LUNGS: Breath sounds equal, clear to auscultation bilaterally, no accessory muscle use. HEART: Regular rate and rhythm, S1, S2 ABDOMEN: Soft, nontender, nondistended, normoactive bowel sounds, no guarding EXTREMITIES: 2+ pulses, warm, well-perfused, no edema. SKIN: Warm, dry, normal turgor, no rashes or lesions noted Laboratory Last Values WBC 8.8 K/mm3 (4.0-10.0) 12/07/19 07:30 RBC 3.22 M/mm3 (3.60-5.2) L 12/07/19 07:30 Hgb 9.6 GM/dL (10.7-15.3) L 12/07/19 07:30 Hct 29.9 % (32.4-45.2) L 12/07/19 07:30 MCV 92.7 fl (80-96) 12/07/19 07:30 MCH 29.7 pg (25.7-33.7) 12/07/19 07:30 MCHC 32.1 g/dl (32.0-36.0) 12/07/19 07:30 RDW 14.7 % (11.6-15.6) 12/07/19 07:30 Plt Count 261 K/MM3 (134-434) 12/07/19 07:30 MPV 10.5 fl (7.5-11.1) 12/07/19 07:30 Absolute Neuts (auto) 4.7 K/mm3 (1.5-8.0) 12/07/19 07:30 Neutrophils % 53.1 % (42.8-82.8) 12/07/19 07:30 Lymphocytes % 35.2 % (8-40) 12/07/19 07:30 Monocytes % 5.7 % (3.8-10.2) 12/07/19 07:30 Eosinophils % 5.3 % (0-4.5) H 12/07/19 07:30 Basophils % 0.7 % (0-2.0) 12/07/19 07:30 Nucleated RBC % 0 % (0-0) 12/07/19 07:30 Retic Count 2.41 % (0.5-1.5) H 12/05/19 07:00 Sodium 140 mmol/L (136-145) 12/07/19 07:30 Potassium 4.8 mmol/L (3.5-5.1) 12/07/19 07:30 Chloride 108 mmol/L (98-107) H 12/07/19 07:30 Carbon Dioxide 22 mmol/L (21-32) 12/07/19 07:30 Anion Gap 10 MMOL/L (8-16) 12/07/19 07:30 BUN 43.9 mg/dL (7-18) H 12/07/19 07:30 Creatinine 2.4 mg/dL (0.55-1.3) H 12/07/19 07:30 Est GFR (CKD-EPI)AfAm 20.79 12/07/19 07:30 Est GFR (CKD-EPI)NonAf 17.94 12/07/19 07:30 POC Glucometer 285 UNITS (80-120) 12/07/19 17:05 Random Glucose 281 mg/dL (74-106) H 12/07/19 07:30 Hemoglobin A1c % 9.5 % (4.2-6.3) H 12/05/19 07:00 Calcium 9.0 mg/dL (8.5-10.1) 12/07/19 07:30 Phosphorus 3.7 mg/dL (2.5-4.9) 12/07/19 07:30 Magnesium 2.4 mg/dL (1.8-2.4) 12/07/19 07:30 Iron 75 ug/dL (50-175) 12/05/19 07:00 TIBC 231 ug/dL (250-450) L 12/05/19 07:00 Iron Saturation 32 % (17.5-39) 12/05/19 07:00 Unsaturated IBC 156 ug/dL (200-275) L 12/05/19 07:00 Ferritin 192.0 ng/ml (8-388) 12/05/19 07:00 Total Bilirubin 0.5 mg/dL (0.2-1) 12/07/19 07:30 AST 13 U/L (15-37) L 12/07/19 07:30 ALT 20 U/L (13-61) 12/07/19 07:30 Alkaline Phosphatase 78 U/L (45-117) 12/07/19 07:30 Creatine Kinase 43 U/L (26-192) 12/02/19 14:17 Troponin I 0.02 ng/ml (0.00-0.05) 12/02/19 14:17 C-Reactive Protein 0.8 MG/DL (0.00-0.3) H 12/05/19 07:00 B-Natriuretic Peptide 981.3 pg/ml (5-450) H 12/04/19 09:58 Total Protein 5.9 g/dl (6.4-8.2) L 12/07/19 07:30 Albumin 2.8 g/dl (3.4-5.0) L 12/07/19 07:30 Total Amylase 19 U/L (25-115) L 12/05/19 07:00 Lipase 112 U/L (73-393) 12/05/19 07:00 TSH 2.60 uIU/ml (0.358-3.74) 12/05/19 07:00 Urine Color Yellow 12/02/19 16:44 Urine Appearance Turbid 12/02/19 16:44 Urine pH 6.0 (5.0-8.0) 12/02/19 16:44 Ur Specific [place] 1.015 (1.010-1.035) 12/02/19 16:44 Urine Protein 2+ (NEGATIVE) H 12/02/19 16:44 Urine Glucose (UA) 2+ (NEGATIVE) H 12/02/19 16:44 Urine Ketones Negative (NEGATIVE) 12/02/19 16:44 Urine Blood 2+ (NEGATIVE) H 12/02/19 16:44 Urine Nitrite Negative (NEGATIVE) 12/02/19 16:44 Urine Bilirubin Negative (NEGATIVE) 12/02/19 16:44 Urine Urobilinogen 0.2 mg/dL (0.2-1.0) 12/02/19 16:44 Ur Leukocyte Esterase 2+ (NEGATIVE) H 12/02/19 16:44 Urine WBC (Auto) 2713 /uL (0-25.8) 12/02/19 16:44 Urine RBC (Auto) 85 /uL (0-23.9) 12/02/19 16:44 Urine Casts (Auto) 2 /uL (0-3.1) 12/02/19 16:44 U Epithel Cells (Auto) 8 /uL (0-25.1) 12/02/19 16:44 Urine Bacteria (Auto) >10,000 /uL (0-1359) 12/02/19 16:44 COVID-19 (MARIAJOSE) Not detected (Not Detected) 12/02/19 16:44 Active Medications Generic Name Dose Route Start Last Admin Trade Name Freq PRN Reason Stop Dose Admin Aspirin 81 mg 12/03/19 10:00 12/07/19 09:59 Asa - PO 81 mg DAILY JASMYN Administration Carvedilol 3.125 mg 12/02/19 22:00 12/07/19 09:59 Coreg - PO 3.125 mg BID JASMYN Administration Clopidogrel Bisulfate 75 mg 12/03/19 10:00 12/07/19 09:59 Plavix - PO 75 mg DAILY JASMYN Administration Folic Acid 1 mg 12/03/19 10:00 12/07/19 09:59 Folic Acid - PO 1 mg DAILY JASMYN Administration Gabapentin 100 mg 12/02/19 22:00 12/07/19 13:40 Neurontin - PO 100 mg TID JASMYN Administration Heparin Sodium (Porcine) 5,000 unit 12/02/19 22:00 12/07/19 13:40 Heparin - SQ 5,000 unit TID JASMYN Administration Ceftriaxone Sodium 1 gm/ 50 mls @ 100 mls/hr 12/02/19 18:30 12/07/19 09:59 Dextrose IVPB 100 mls/hr DAILY JASMYN Administration Insulin Aspart 1 vial 12/02/19 22:00 12/07/19 11:25 Novolog Vial Sliding Scale - SQ 8 units ACHS JASMYN Administration Protocol Pantoprazole Sodium 40 mg 12/05/19 10:00 12/07/19 09:59 Protonix - PO 40 mg DAILY JASMYN Administration Rosuvastatin Calcium 10 mg 12/02/19 22:00 12/06/19 22:06 Crestor - PO 10 mg HS JASMYN Administration ASSESSMENT/PLAN: 84 yo F PMH GERD, TIA, CKD, HTN, IDDM, VRE UTI (06/2019), HFpEF, CAD (s/p triple [id number]) p/w SOB X 2d, vomiting after eating. SOB 2/2 CHF exacerbation VS aortic stenosis VS TOR -c/w coreg ULISES on CKD - improved -nephro recs appreciated. Dysphagia 2/2 possibly to Gastroparesis vs gastritis -improved -GI recs appreciated. - pending recs from speech/swallow pathologist s/p MBS -c/w pantoprazole 40 daily UTI -c/w Ceftriaxone 1 gm in D5W day 6. no abx needed at dc HFpEF -ECHO (July 2019): LVEF 65%, mild LVH. Moderate-severe aortic stenosis (AV area 1.8 cm2, gradient 17 mmHg). exam suggests euvolemia. -c/w home carvedilol 3.125 mg BID -hold home lisinopril 2.5 mg PO Daily due to ULISES HTN -c/w home carvedilol 3.125 mg BID -hold home amlodipine 5 mg PO daily 2/2 LE edema -hold home lisinopril 2.5 mg PO Daily due to ULISES HLD c/w home rosuvastatin 40 mg PO HS DM -ISS ACHS -BGM CAD s/p CABG, stents -c/w home ASA 81 mg PO daily -c/w home rosuvastatin 40 mg PO HS DVT PPX: Hep SQ tolerating diet/ DC tomorrow, has 24 hour PHARMACY INTAKE COORDINATOR . needs ambulette Visit type - Emergency Visit Emergency Visit: No - New Patient This patient is new to me today: No - Critical Care Critical Care patient: No - Discharge Referral Referred to [facility] Med P.C.: No ATTENDING PHYSICIAN STATEMENT I saw and evaluated the patient. I reviewed the resident's note and discussed the case with the resident. I agree with the resident's findings and plan as documented. SUBJECTIVE: OBJECTIVE: ASSESSMENT AND PLAN:
--- NOTE | 2019-12-07 18:20 | PN ---
Teaching Attending Note Name of Resident: Fiorella Perez ATTENDING PHYSICIAN STATEMENT I saw and evaluated the patient. I reviewed the resident's note and discussed the case with the resident. I agree with the resident's findings and plan as documented. SUBJECTIVE: Patient is comfortable with no acute distress. OBJECTIVE: Vital Signs Temperature 98.7 F 12/07/19 10:00 Pulse Rate 61 12/07/19 10:00 Respiratory Rate 20 12/07/19 12:00 Blood Pressure 142/66 12/07/19 10:00 O2 Sat by Pulse Oximetry (%) 96 12/07/19 12:00 PE: per resident's note CBCD WBC 8.8 K/mm3 (4.0-10.0) 12/07/19 07:30 RBC 3.22 M/mm3 (3.60-5.2) L 12/07/19 07:30 Hgb 9.6 GM/dL (10.7-15.3) L 12/07/19 07:30 Hct 29.9 % (32.4-45.2) L 12/07/19 07:30 MCV 92.7 fl (80-96) 12/07/19 07:30 MCHC 32.1 g/dl (32.0-36.0) 12/07/19 07:30 RDW 14.7 % (11.6-15.6) 12/07/19 07:30 Plt Count 261 K/MM3 (134-434) 12/07/19 07:30 MPV 10.5 fl (7.5-11.1) 12/07/19 07:30 CMP Sodium 140 mmol/L (136-145) 12/07/19 07:30 Potassium 4.8 mmol/L (3.5-5.1) 12/07/19 07:30 Chloride 108 mmol/L (98-107) H 12/07/19 07:30 Carbon Dioxide 22 mmol/L (21-32) 12/07/19 07:30 Anion Gap 10 MMOL/L (8-16) 12/07/19 07:30 BUN 43.9 mg/dL (7-18) H 12/07/19 07:30 Creatinine 2.4 mg/dL (0.55-1.3) H 12/07/19 07:30 Random Glucose 281 mg/dL (74-106) H 12/07/19 07:30 Calcium 9.0 mg/dL (8.5-10.1) 12/07/19 07:30 Total Bilirubin 0.5 mg/dL (0.2-1) 12/07/19 07:30 AST 13 U/L (15-37) L 12/07/19 07:30 ALT 20 U/L (13-61) 12/07/19 07:30 Alkaline Phosphatase 78 U/L (45-117) 12/07/19 07:30 Total Protein 5.9 g/dl (6.4-8.2) L 12/07/19 07:30 Albumin 2.8 g/dl (3.4-5.0) L 12/07/19 07:30 CARDIAC ENZYMES Creatine Kinase 43 U/L (26-192) 12/02/19 14:17 Troponin I 0.02 ng/ml (0.00-0.05) 12/02/19 14:17 Current Medications Generic Name Dose Route Start Last Admin Trade Name Abelq PRN Reason Stop Dose Admin Aspirin 81 mg 12/03/19 10:00 12/07/19 09:59 Asa - PO 81 mg DAILY JASMYN Administration Carvedilol 3.125 mg 12/02/19 22:00 12/07/19 09:59 Coreg - PO 3.125 mg BID JASMYN Administration Clopidogrel Bisulfate 75 mg 12/03/19 10:00 12/07/19 09:59 Plavix - PO 75 mg DAILY JASMYN Administration Folic Acid 1 mg 12/03/19 10:00 12/07/19 09:59 Folic Acid - PO 1 mg DAILY JASMYN Administration Gabapentin 100 mg 12/02/19 22:00 12/07/19 13:40 Neurontin - PO 100 mg TID JASMYN Administration Heparin Sodium (Porcine) 5,000 unit 12/02/19 22:00 12/07/19 13:40 Heparin - SQ 5,000 unit TID JASMYN Administration Ceftriaxone Sodium 1 gm/ 50 mls @ 100 mls/hr 12/02/19 18:30 12/07/19 09:59 Dextrose IVPB 100 mls/hr DAILY JASMYN Administration Insulin Aspart 1 vial 12/02/19 22:00 12/07/19 17:06 Novolog Vial Sliding Scale - SQ 6 units ACHS JASMYN Administration Protocol Pantoprazole Sodium 40 mg 12/05/19 10:00 12/07/19 09:59 Protonix - PO 40 mg DAILY JASMYN Administration Rosuvastatin Calcium 10 mg 12/02/19 22:00 12/06/19 22:06 Crestor - PO 10 mg HS JASMYN Administration Home Medications Medication Instructions Recorded Clopidogrel Bisulfate [Plavix] 75 mg PO DAILY 02/08/18 Carvedilol 3.125 mg PO BID 05/15/19 Ergocalciferol (Vitamin D2) 1 cap PO WEEKLY 05/16/19 [Vitamin D2] Gabapentin 100 mg PO TID 05/16/19 Aspirin [ASA -] 81 mg PO DAILY tab.chew 05/22/19 Amlodipine Besylate 5 mg PO DAILY 12/02/19 Folic Acid 1 mg PO DAILY 12/02/19 Lisinopril [Zestril] 2.5 mg PO DAILY 12/02/19 Rosuvastatin Calcium [Crestor] 40 mg PO HS 12/02/19 Cyanocobalamin Vit B-12 Inj. 1 ml MONTHLY 12/04/19 [Vitamin B12 Injection -] Insulin (Novolog) [Novolog -] 200 units TID 12/04/19 Insulin Detemir [Levemir Flextouch] 34 units TID 12/04/19 Microbiology 12/02/19 16:44 Urine - Urine Clean Catch Urine Culture - Final Escherichia Coli ASSESSMENT AND PLAN: This patient is an 84yof with pmhx of htn, hld, ckd, dm, tia, cad, chf, pvd, and gerd who is admitted for having SOB and TORRES and was found to have UTI. #Acute UTI: On IV antioibotics continue Rocephin continue #Acute on chronic renal failure: cr 2.6-->2.5-->2.4 continue to monitor , nephro on the case #s/p hyperkalemia. will repeat the labs in am #Acute UTI: Recent history of VRE and E. coli urine culture, on IV ceftriaxone, follow the cx , Id on the case #HTN: continue home meds except for lisinopril #History of CAD/TIA: continue home clopidogrel, aspirin, statin # covid negative DVTPpx: sub q heparin patient tolerated diet well. dc in am
[2019-12-07] MEDS ORDERED: INSULIN (LEVEMIR) 100 UNITS/ML UNITS SQ ONE (21:16)
[2019-12-07] MEDS: ROSUVASTATIN CA 10 MG TABLET (FP) PO SCH (21:55)
[2019-12-08] MEDS: HEPARIN NA (PORCINE) 5,000 UNITS/ML 1ML VIAL SQ SCH (07:16)
[2019-12-08] MEDS: GABAPENTIN 100 MG CAPSULE PO SCH (07:17)
[2019-12-08] MEDS: INSULIN SLIDING SCALE (NOVOLOG) 1 VIAL SQ SCH (07:18)
[2019-12-08 08:42] LABS: HEMATOCRIT 28.9 % (32.4-45.2); HEMOGLOBIN 9.2 GM/dL (10.7-15.3); MCH 29.7 pg (25.7-33.7); MCHC 31.8 g/dl (32.0-36.0); MEAN CELL VOLUME 93.4 fl (80-96); MEAN PLT VOLUME 10.6 fl (7.5-11.1); PLATELET COUNT 248 K/MM3 (134-434); WHITE BLOOD COUNT 10.4 K/mm3 (4.0-10.0)
[2019-12-08 09:09] LABS: BLOOD UREA NITROGEN 49.6 mg/dL (7-18); CALCIUM 8.8 mg/dL (8.5-10.1); CREATININE 2.4 mg/dL (0.55-1.3); MAGNESIUM 2.1 mg/dL (1.8-2.4); PHOSPHOROUS 4.3 mg/dL (2.5-4.9); POTASSIUM 4.8 mmol/L (3.5-5.1)
[2019-12-08 09:54] VITALS: BP 127/52; PULSE 60; TEMP 98.4
--- NOTE | 2019-12-08 09:58 | DS ---
Physical Exam: SUBJECTIVE: No overnight events. Patient seen and examined. NO complaints. Endorses feeling better. Denies SOB. OBJECTIVE: Vital Signs Period Temp Pulse Resp BP Sys/Mckeon Pulse Ox Last 24 Hr 97.3 F-98.8 F 60-70 20-21 112-147/52-69 86-96 PHYSICAL EXAM GENERAL: The patient is awake, alert, and fully oriented, in no acute distress. HEAD: Normal with no signs of trauma. LUNGS: Breath sounds equal, clear to auscultation bilaterally, no accessory muscle use. HEART: Regular rate and rhythm, S1, S2 ABDOMEN: Soft, nontender, nondistended, normoactive bowel sounds, no guarding EXTREMITIES: 2+ pulses, warm, well-perfused, no edema. SKIN: Warm, dry, normal turgor, no rashes or lesions noted LABS Laboratory Results - last 24 hr 12/07/19 12/07/19 12/07/19 11:12 17:05 21:52 WBC RBC Hgb Hct MCV MCH MCHC RDW Plt Count MPV Sodium Potassium Chloride Carbon Dioxide Anion Gap BUN Creatinine Est GFR (CKD-EPI)AfAm Est GFR (CKD-EPI)NonAf POC Glucometer 311 285 332 Random Glucose Calcium Phosphorus Magnesium 12/08/19 12/08/19 12/08/19 07:00 07:00 07:15 WBC 10.4 H RBC 3.10 L Hgb 9.2 L Hct 28.9 L MCV 93.4 MCH 29.7 MCHC 31.8 L RDW 15.0 Plt Count 248 MPV 10.6 Sodium 140 Potassium 4.8 Chloride 109 H Carbon Dioxide 21 Anion Gap 10 BUN 49.6 H Creatinine 2.4 H Est GFR (CKD-EPI)AfAm 20.79 Est GFR (CKD-EPI)NonAf 17.94 POC Glucometer 231 Random Glucose 257 H Calcium 8.8 Phosphorus 4.3 Magnesium 2.1 HOSPITAL COURSE: 84 YO F PMH GERD, TIA, CKD, HTN, IDDM, VRE UTI (06/2019), diastolic CHF w/ preserved EF, CAD s/p triple bypass (10/2018) p/w SOB X 2d, orthopnea, and wors ening b/l LE edema X 3 wks, a witnessed fall, & N/V for 2 wks. EKG showed sinus bradycardia and prior infarcts, and CXR showed prominent mediastinum with a large heart. LE Doppler did not show evidence of DVT. Echo showed an EF of 65% with Impaired LV relaxation, mildly dilated LA & RA, mild aortic stenosis and moderate-severe aortic sclerosis. Pt was given carvedilol. UA was significant for bacteria >10 K, WBC 2713, epith 8, blood 2+, protein 2+, glucose 2+. A dose of Linezolid 600 mg in 300 IVPB was given. Urine culture grew E. Coli, so the UTI was managed with ceftriaxone. During her stay, the patient was evaluated by a parker due to dysphagia. Modified barium swallow was unremarkable. CBC was notable for low Hgb/Hct. Iron studies show that MCV, iron, iron saturation, and ferritin are NORMAL. TIBC & Unsaturated IBC are LOW. Indicating normocytic anemia. GI counseled colon cancer screening/EGD to evaluate her anemia, but pt refused. Pts symptoms improved. Pt is stable for discharge. Date of Admission:12/02/19 ECHO: EF 65%, Impaired LV relaxation, LA & RA mildly dilated, mild-moderate mitral annular calcification, trace mitral regurg, mild aortic stenosis, moderate-severe aortic sclerosis, EKG: Sinus bradycardia, inferior infarct (age undetermined); anterolateral infarct (cited on/before 07/18/2019) Doppler: no DVT on b/l LE CXR: sternal sutures & clips & prominent mediastinum w/ large heart. REPEAT CXR: no acute change since prior study Date of Discharge: 12/08/19 Minutes to complete discharge: 44 Discharge Summary Problems reviewed: Yes Reason For Visit: RENAL FAILURE Current Active Problems UTI (urinary tract infection) (Acute) Aortic stenosis, mild (Chronic) CHF (congestive heart failure) (Chronic) CKD (chronic kidney disease) (Chronic) Choking episode occurring at night (Chronic) Diastolic CHF (Chronic) Dyspepsia (Chronic) Dyspnea (Chronic) Paraumbilical hernia (Chronic) Condition: Stable - Instructions Diet, Activity, Other Instructions: You came to the hospital for difficulty breathing, leg swelling, and difficulty swallowing associated with nausea/vomiting. Your SOB improved with high blood pressure medication. A brick catcher evaluated your breathing difficulties. Please see a brick catcher for evaluation of difficulty breathing due to a possible sleeping condition. You were evaluated by a parker for your difficulty swallowing. Your symptoms improved with medication that reduced stomach acid and medication for nausea. Ultrasound of your liver showed a fatty liver. Please continue with l ifestyle modifications, such as a low-fat/salt/sugar diet. You had a UTI treated with Antibiotics. You blood results showed that you are anemic. It is recommended you get cancer screening and colonoscopy. You are now stable for discharge Please continue your home medications as prescribed. Please do not continue your amlodipine Please take protonix 40 mg daily please take augmentin 500 mg twice a day for 2 more days. please take levemir 15 units in the morning and night. please use sliding scale as needed. please keep a log of your blood sugars for your physician Please follow up with your primary medical physician, Dr. Hua, in 1 week to monitor your improvement please follow up with your customer support professional, Dr. Jules, regarding your heart condition. Please follow up with your brick catcher, Dr. Whitney. You will need a sleep study Please follow-up with your parker, Dr. Dubon, regarding your difficulty swallowing and for colon cancer screening/endoscopy. please follow up with your or nurse manager, Dr victoria,to manage your diabetes If you have new, worsening, or concerning symptoms please return to the ED or call 911 Referrals: Misael Whitney MD [Staff Physician] - Jorden Jules MD [Staff Physician] - Soto Dubon MD [Staff Physician] - Solo Victoria MD [Staff Physician] - Deric Hua MD [Primary Care Provider] - Disposition: HOME - Home Medications Comprehensive Discharge Medication List: Ambulatory Orders Clopidogrel Bisulfate [Plavix] 75 mg PO DAILY 02/08/18 Carvedilol 3.125 mg PO BID 05/15/19 Ergocalciferol (Vitamin D2) [Vitamin D2] 1 cap PO WEEKLY 05/16/19 Gabapentin 100 mg PO TID 05/16/19 Aspirin [ASA -] 81 mg PO DAILY tab.chew 05/22/19 Folic Acid 1 mg PO DAILY 12/02/19 Rosuvastatin Calcium [Crestor] 40 mg PO HS 12/02/19 Cyanocobalamin Vit B-12 Inj. [Vitamin B12 Injection -] 1 ml MONTHLY 12/04/19 Insulin (Novolog) [Novolog -] 200 units TID 12/04/19 Insulin Detemir [Levemir Flextouch] 34 units TID 12/04/19 Amoxicillin/Potassium Clav [Augmentin 500-125 Tablet] 1 each PO BID #4 tablet 12/08/19 Lisinopril [Zestril] 2.5 mg PO DAILY 12/08/19 Pantoprazole Sodium [Protonix -] 40 mg PO DAILY #30 tablet.ec 12/08/19 This patient is new to me today: No Emergency Visit: Yes ED Registration Date: 12/02/19 Care time: The patient presented to the Emergency Department on the above date and was hospitalized for further evaluation of their emergent condition. Critical Care patient: No - Discharge Referral Referred to [facility] Med P.C.: No ATTENDING PHYSICIAN STATEMENT I saw and evaluated the patient. I reviewed the resident's note and discussed the case with the resident. I agree with the resident's findings and plan as documented. SUBJECTIVE: OBJECTIVE: ASSESSMENT AND PLAN:
[2019-12-08] MEDS ORDERED: DEXTROSE 5%-WATER - 50 ML IVPB ONE (10:47)
[2019-12-08] MEDS ORDERED: cefTRIAXone SODIUM 1 GM VIAL ONE (10:47)
[2019-12-08] MEDS: FOLIC ACID 1 MG TABLET (FP) PO SCH (10:48)
[2019-12-08] MEDS: CLOPIDOGREL BISULFATE 75 MG TABLET (FP) PO SCH (10:48)
[2019-12-08] MEDS: ASPIRIN 81 MG CHEWABLE TABLETS PO SCH (10:48)
[2019-12-08] MEDS: CARVEDILOL 3.125 MG TABLET (FP) PO SCH (10:48)
[2019-12-08] MEDS: CEFTRIAXONE 1 GM in DEXTROSE 5%-WATER - 50 ML IVPB SCH (10:49)
[2019-12-08] MEDS: PANTOPRAZOLE 40 MG TABLET PO SCH (10:49)
--- NOTE | 2019-12-08 13:28 | PN ---
Teaching Attending Note Name of Resident: Tony Santana ATTENDING PHYSICIAN STATEMENT I saw and evaluated the patient. I reviewed the resident's note and discussed the case with the resident. I agree with the resident's findings and plan as documented. SUBJECTIVE: pATIENT IS comfortable with no acute distress. OBJECTIVE: Vital Signs Temperature 98.4 F 12/08/19 09:53 Pulse Rate 60 12/08/19 09:53 Respiratory Rate 20 12/08/19 09:53 Blood Pressure 127/52 L 12/08/19 09:53 O2 Sat by Pulse Oximetry (%) 93 L 12/08/19 09:53 PE:per resident's note CBCD WBC 10.4 K/mm3 (4.0-10.0) H 12/08/19 07:00 RBC 3.10 M/mm3 (3.60-5.2) L 12/08/19 07:00 Hgb 9.2 GM/dL (10.7-15.3) L 12/08/19 07:00 Hct 28.9 % (32.4-45.2) L 12/08/19 07:00 MCV 93.4 fl (80-96) 12/08/19 07:00 MCHC 31.8 g/dl (32.0-36.0) L 12/08/19 07:00 RDW 15.0 % (11.6-15.6) 12/08/19 07:00 Plt Count 248 K/MM3 (134-434) 12/08/19 07:00 MPV 10.6 fl (7.5-11.1) 12/08/19 07:00 CMP Sodium 140 mmol/L (136-145) 12/08/19 07:00 Potassium 4.8 mmol/L (3.5-5.1) 12/08/19 07:00 Chloride 109 mmol/L (98-107) H 12/08/19 07:00 Carbon Dioxide 21 mmol/L (21-32) 12/08/19 07:00 Anion Gap 10 MMOL/L (8-16) 12/08/19 07:00 BUN 49.6 mg/dL (7-18) H 12/08/19 07:00 Creatinine 2.4 mg/dL (0.55-1.3) H 12/08/19 07:00 Random Glucose 257 mg/dL (74-106) H 12/08/19 07:00 Calcium 8.8 mg/dL (8.5-10.1) 12/08/19 07:00 Total Bilirubin 0.5 mg/dL (0.2-1) 12/07/19 07:30 AST 13 U/L (15-37) L 12/07/19 07:30 ALT 20 U/L (13-61) 12/07/19 07:30 Alkaline Phosphatase 78 U/L (45-117) 12/07/19 07:30 Total Protein 5.9 g/dl (6.4-8.2) L 12/07/19 07:30 Albumin 2.8 g/dl (3.4-5.0) L 12/07/19 07:30 CARDIAC ENZYMES Creatine Kinase 43 U/L (26-192) 12/02/19 14:17 Troponin I 0.02 ng/ml (0.00-0.05) 12/02/19 14:17 Home Medications Medication Instructions Recorded Clopidogrel Bisulfate [Plavix] 75 mg PO DAILY 02/08/18 Carvedilol 3.125 mg PO BID 05/15/19 Ergocalciferol (Vitamin D2) 1 cap PO WEEKLY 05/16/19 [Vitamin D2] Gabapentin 100 mg PO TID 05/16/19 Aspirin [ASA -] 81 mg PO DAILY tab.chew 05/22/19 Folic Acid 1 mg PO DAILY 12/02/19 Rosuvastatin Calcium [Crestor] 40 mg PO HS 12/02/19 Cyanocobalamin Vit B-12 Inj. 1 ml MONTHLY 12/04/19 [Vitamin B12 Injection -] Amoxicillin/Potassium Clav 1 each PO BID #4 tablet 12/08/19 [Augmentin 500-125 Tablet] Insulin Detemir [Levemir Flextouch] 15 unit SQ BID #1 insuln.pen 12/08/19 Lisinopril [Zestril] 2.5 mg PO DAILY 12/08/19 Pantoprazole Sodium [Protonix -] 40 mg PO DAILY #30 tablet.ec 12/08/19 Urine Test Results Urine Color Yellow 12/02/19 16:44 Urine Appearance Turbid 12/02/19 16:44 Urine pH 6.0 (5.0-8.0) 12/02/19 16:44 Ur Specific [place] 1.015 (1.010-1.035) 12/02/19 16:44 Urine Protein 2+ (NEGATIVE) H 12/02/19 16:44 Urine Glucose (UA) 2+ (NEGATIVE) H 12/02/19 16:44 Urine Ketones Negative (NEGATIVE) 12/02/19 16:44 Urine Blood 2+ (NEGATIVE) H 12/02/19 16:44 Urine Nitrite Negative (NEGATIVE) 12/02/19 16:44 Urine Bilirubin Negative (NEGATIVE) 12/02/19 16:44 Ur Leukocyte Esterase 2+ (NEGATIVE) H 12/02/19 16:44 Microbiology 12/02/19 16:44 Urine - Urine Clean Catch Urine Culture - Final Escherichia Coli ASSESSMENT AND PLAN: This patient is an 84yof with pmhx of htn, hld, ckd, dm, tia, cad, chf, pvd, and gerd who is admitted for having SOB and TORRES and was found to have UTI. #Acute UTI: s/p IV Rocephin will continue with 2 more days of oral antibiotics , Augmentin 500mg po bid x 2 days #Acute on chronic renal failure: cr 2.6-->2.5-->2.4 continue to monitor , nephro on the case #s/p hyperkalemia. improved #Acute UTI: Recent history of VRE and E. coli urine culture,s/p IV ceftriaxone #HTN: continue home meds except for lisinopril; low dose #History of CAD/TIA: continue home clopidogrel, aspirin, statin # covid negative #Hx Of T2DM , lowered levemir 15mg bid sq DVTPpx: sub q heparin patient tolerated diet well. dc [facility]
== END 2019-12-08 11:30 | disposition home or self-care (01) | DRG 683 ==
LOC: JER 13:45 → JERBED 17:54 → J6WEST-2 22:41 → J8W 12-05 13:48
PROVIDERS: ADMIT Internal Medicine; ATTEND Internal Medicine
DX: N17.9 Acute kidney failure, unspecified (principal); N39.0 Urinary tract infection, site not specified; I50.32 Chronic diastolic (congestive) heart failure; I13.0 Hypertensive heart and chronic kidney disease with heart failure and stage 1 through stage 4 chronic kidney disease, or unspecified chronic kidney disease; N18.3 Chronic kidney disease, stage 3 (moderate); E87.5 Hyperkalemia; E78.5 Hyperlipidemia, unspecified; E11.22 Type 2 diabetes mellitus with diabetic chronic kidney disease; I25.119 Atherosclerotic heart disease of native coronary artery with unspecified angina pectoris; E11.43 Type 2 diabetes mellitus with diabetic autonomic (poly)neuropathy; R11.2 Nausea with vomiting, unspecified; R06.00 Dyspnea, unspecified; D63.1 Anemia in chronic kidney disease; R13.10 Dysphagia, unspecified; B96.20 Unspecified Escherichia coli [E. coli] as the cause of diseases classified elsewhere; I25.10 Atherosclerotic heart disease of native coronary artery without angina pectoris; K31.84 Gastroparesis; Z95.1 Presence of aortocoronary bypass graft; Z95.2 Presence of prosthetic heart valve; K21.9 Gastro-esophageal reflux disease without esophagitis
CPT/HCPCS: 36415; 71045-TC-FY; 74230-TC-FY; 76705-TC; 80048; 80053; 81003; 82150; 82550; 82728; 82962; 83036; 83540; 83550; 83690; 83735; 83880; 84100; 84155; 84165; 84443; 84484; 85025; 85027; 85044; 86140; 87086; 87186; 92611-GN; 93005; 93010; 93306-TC; 93970-TC; 97116-GP; 97161-GP; 99285-25; J1644; U0003

== ENCOUNTER 2020-03-28 15:18 | Inpatient (IN) | payer OTHER, MEDICARE ==
[2020-03-28 17:20] LABS: BASO % 0.3 % (0-2.0); EOS % 1.3 % (0-4.5); HEMATOCRIT 33.4 % (32.4-45.2); HEMOGLOBIN 10.7 GM/dL (10.7-15.3); LYMPH % 19.2 % (8-40); MCH 30.5 pg (25.7-33.7); MCHC 32.1 g/dl (32.0-36.0); MEAN CELL VOLUME 94.8 fl (80-96); MEAN PLT VOLUME 10.6 fl (7.5-11.1); MONO % 6.8 % (3.8-10.2); NEUT % 72.4 % (42.8-82.8); PLATELET COUNT 235 K/MM3 (134-434); RBC 3.52 M/mm3 (3.60-5.2); RDW 14.6 % (11.6-15.6)
[2020-03-28 17:46] LABS: POTASSIUM 5.7 mmol/L (3.5-5.1)
[2020-03-28 17:48] LABS: ALBUMIN 3.1 g/dl (3.4-5.0); BLOOD UREA NITROGEN 47.6 mg/dL (7-18); CALCIUM 8.8 mg/dL (8.5-10.1)
[2020-03-28 17:51] LABS: CREATININE 3.1 mg/dL (0.55-1.3)
[2020-03-28 17:53] LABS: BILIRUBIN,TOTAL 0.3 mg/dL (0.2-1); TOT PROT 6.2 g/dl (6.4-8.2)
[2020-03-28] MEDS ORDERED: morphine CARPU-JECT 4 MG/1 ML DISP.SYRIN IVPUSH ONE ×2 (18:42→20:10)
[2020-03-28] MEDS ORDERED: ALBUTEROL SO4 HFA INHALER IH ONE ×2 (18:55→19:27)
[2020-03-28] MEDS ORDERED: INSULIN REGULAR HUMAN 100 UNITS/ML *VIAL IVPUSH ONE (18:55)
[2020-03-28] MEDS ORDERED: SODIUM BICARBONATE 8.4% 50 MEQ/50 ML DISP.SYRIN IVPUSH ONE (18:55)
[2020-03-28] MEDS ORDERED: DEXTROSE 50%-WATER - 25 GM/50 ML VIAL IVPUSH ONE (18:55)
[2020-03-28] MEDS ORDERED: MORPHINE SULFATE 2 MG/ML VIAL ONE ×2 (18:59→20:11)
[2020-03-28] MEDS ORDERED: SODIUM BICARBONATE 8.4% 50 MEQ/50 ML VIAL ONE (19:27)
[2020-03-28] MEDS ORDERED: DEXTROSE 50%-WATER - 25 GM/50 ML VIAL ONE (19:27)
[2020-03-28 20:00] LABS: INR 0.92 (0.83-1.09); PROTHROMBIN TIME (PATIENT) 11.2 SEC (9.7-13.0)
[2020-03-28 20:02] LABS: ACTIVATED PTT 26.7 SECONDS (25.2-36.5)
[2020-03-28] MEDS ORDERED: ACETAMINOPHEN 325 MG TABLET (FP) PO PRN (21:18)
[2020-03-28] MEDS ORDERED: SODIUM CHLORIDE 0.45% 1,000 ML IV SCH (21:30)
[2020-03-28] MEDS ORDERED: ONDANSETRON 4 MG/2 ML VIAL IVPUSH ONE (21:35)
[2020-03-28 22:10] LABS: EPI CELLS 22 /uL (0-25.1); HYALINE CASTS 7 /uL (0-3.1); URINE APPEARANCE TURBID; URINE BACTERIA >9,000 /uL (0-1359); URINE BILIRUBIN NEGATIVE (NEGATIVE); URINE COLOR YELLOW; URINE GLUCOSE (UA) 1+ (NEGATIVE); URINE KETONE NEGATIVE (NEGATIVE); URINE LEUK ESTERASE 2+ (NEGATIVE); URINE NITRITE NEGATIVE (NEGATIVE); URINE PROTEIN 3+ (NEGATIVE); URINE RBC 27 /uL (0-23.9); URINE UROBILINOGEN 0.2 mg/dL (0.2-1.0); URINE WBC 1646 /uL (0-25.8)
[2020-03-28 22:23] LABS: POTASSIUM 5.4 mmol/L (3.5-5.1)
[2020-03-28 22:24] LABS: CALCIUM 8.7 mg/dL (8.5-10.1)
[2020-03-28 22:25] LABS: BLOOD UREA NITROGEN 49.1 mg/dL (7-18)
[2020-03-28 22:28] LABS: CREATININE 3.1 mg/dL (0.55-1.3)
[2020-03-28] MEDS ORDERED: ACETAMINOPHEN 1000 MG/100 ML VIAL (NON FORMULARY) IVPB ONE (23:03)
[2020-03-28] MEDS ORDERED: MORPHINE SULFATE 2 MG/ML VIAL IVPUSH ONE (23:04)
[2020-03-28] MEDS ORDERED: SODIUM CHLORIDE 0.9% 500 ML INFUS.BAG IV ONE (23:28)
[2020-03-28] MEDS ORDERED: CEFTRIAXONE 1 GM in DEXTROSE 5%-WATER - 50 ML IVPB SCH (23:33)
[2020-03-28] MEDS: INSULIN SLIDING SCALE (NOVOLOG) 1 VIAL SQ SCH (23:33)
[2020-03-28] MEDS ORDERED: DEXTROSE 5%-WATER - 50 ML IVPB ONE (23:35)
[2020-03-28] MEDS ORDERED: cefTRIAXone SODIUM 1 GM VIAL ONE (23:35)
[2020-03-28] MEDS ORDERED: SODIUM CHLORIDE 1,000 ML IV SCH (23:45)
[2020-03-29] MEDS: INSULIN SLIDING SCALE (NOVOLOG) 1 VIAL SQ SCH ×5 (06:09→22:01)
[2020-03-29] MEDS ORDERED: MORPHINE SULFATE 2 MG/ML VIAL IVPUSH ONE (06:13)
[2020-03-29 07:34] LABS: BASO % 0.5 % (0-2.0); EOS % 1.2 % (0-4.5); HEMATOCRIT 30.3 % (32.4-45.2); HEMOGLOBIN 9.7 GM/dL (10.7-15.3); LYMPH % 36.9 % (8-40); MCH 30.3 pg (25.7-33.7); MCHC 32.1 g/dl (32.0-36.0); MEAN CELL VOLUME 94.5 fl (80-96); MEAN PLT VOLUME 10.7 fl (7.5-11.1); MONO % 8.9 % (3.8-10.2); NEUT % 52.5 % (42.8-82.8); PLATELET COUNT 220 K/MM3 (134-434); RBC 3.21 M/mm3 (3.60-5.2); RDW 14.8 % (11.6-15.6); WHITE BLOOD COUNT 6.8 K/mm3 (4.0-10.0)
[2020-03-29] MEDS ORDERED: ACETAMINOPHEN 1000 MG/100 ML VIAL (NON FORMULARY) IVPB ONE (08:02)
[2020-03-29 08:06] LABS: CALCIUM 8.4 mg/dL (8.5-10.1)
[2020-03-29 08:07] LABS: BLOOD UREA NITROGEN 51.3 mg/dL (7-18)
[2020-03-29 08:08] LABS: CREATININE 3.5 mg/dL (0.55-1.3)
[2020-03-29 08:09] LABS: PHOSPHOROUS 5.1 mg/dL (2.5-4.9)
[2020-03-29 08:10] LABS: BILIRUBIN,TOTAL 0.4 mg/dL (0.2-1); MAGNESIUM 2.5 mg/dL (1.8-2.4); TOT PROT 5.9 g/dl (6.4-8.2)
[2020-03-29] MEDS ORDERED: DEXTROSE 5%-WATER 100 ML IVPB ONE (08:52)
[2020-03-29] MEDS ORDERED: DEXTROSE 50%-WATER - 25 GM/50 ML VIAL IVPUSH ONE (09:15)
[2020-03-29] MEDS ORDERED: CALCIUM GLUCONATE 10% - 1,000 MG/10 ML VIAL IVPUSH ONE (09:15)
[2020-03-29] MEDS ORDERED: INSULIN REGULAR HUMAN 100 UNITS/ML *VIAL IVPUSH ONE (09:30)
[2020-03-29] MEDS ORDERED: ALBUTEROL SO4 0.083% IH SOL 2.5 MG/3 ML VIAL.NEB. NEB ONE (09:30)
[2020-03-29] MEDS ORDERED: SODIUM ZIRCONIUM CYCLOSILICATE (LOKELMA) 5 GM PACKET PO ONE ×4 (09:30→20:11)
[2020-03-29] MEDS ORDERED: ALBUTEROL SO4 HFA INHALER IH PRN ×2 (09:32→20:11)
[2020-03-29] MEDS ORDERED: CEFTRIAXONE 1 GM in DEXTROSE 5%-WATER - 50 ML IVPB SCH (10:00)
[2020-03-29] MEDS ORDERED: CEFTRIAXONE 2 GM in DEXTROSE 5%-WATER 100 ML IVPB SCH (10:00)
[2020-03-29] MEDS ORDERED: SODIUM CHLORIDE 0.45% 1,000 ML IV SCH ×2 (10:30→20:11)
[2020-03-29] MEDS ORDERED: CALCIUM CHLORIDE 1 GM/10 ML *DISP.SYRIN IVPB ONE (11:30)
[2020-03-29] MEDS ORDERED: DEXTROSE 50%-WATER 25 GM/50 ML DISP.SYRIN ONE (12:20)
[2020-03-29] MEDS ORDERED: PT OWN MED DRAWER 7, Y5N ONE ×2 (12:48→17:39)
[2020-03-29] MEDS: SODIUM ZIRCONIUM CYCLOSILICATE (LOKELMA) 10 GM PACKET PO ONE ×2 (13:39→14:00)
[2020-03-29] MEDS ORDERED: CALCIUM GLUCONATE 10% - 1,000 MG/10 ML VIAL IVPB ONE (14:00)
[2020-03-29 16:12] LABS: ALBUMIN 2.9 g/dl (3.4-5.0); BILIRUBIN,TOTAL 0.2 mg/dL (0.2-1); BLOOD UREA NITROGEN 50.9 mg/dL (7-18); CALCIUM 8.5 mg/dL (8.5-10.1); CREATININE 3.7 mg/dL (0.55-1.3); POTASSIUM 5.6 mmol/L (3.5-5.1); TOT PROT 5.7 g/dl (6.4-8.2)
[2020-03-29] MEDS ORDERED: INSULIN (NOVOLOG) ASPART 100 UNITS/ML 10ML VIAL ONE ×2 (17:08→18:21)
[2020-03-29] MEDS: HYDROmorphone HCl 2 MG/ML VIAL IM PRN (17:15)
[2020-03-30] MEDS: HYDROmorphone HCl 2 MG/ML VIAL IM PRN ×2 (02:52→20:00)
[2020-03-30] MEDS: INSULIN SLIDING SCALE (NOVOLOG) 1 VIAL SQ SCH ×5 (06:41→23:00)
[2020-03-30 07:14] LABS: BASO % 0.7 % (0-2.0); EOS % 3.2 % (0-4.5); HEMATOCRIT 32.1 % (32.4-45.2); LYMPH % 30.6 % (8-40); MCH 30.1 pg (25.7-33.7); MCHC 31.2 g/dl (32.0-36.0); MEAN CELL VOLUME 96.5 fl (80-96); MEAN PLT VOLUME 10.9 fl (7.5-11.1); MONO % 8.8 % (3.8-10.2); NEUT % 56.7 % (42.8-82.8); PLATELET COUNT 242 K/MM3 (134-434); RBC 3.33 M/mm3 (3.60-5.2); RDW 14.9 % (11.6-15.6); WHITE BLOOD COUNT 10.2 K/mm3 (4.0-10.0)
[2020-03-30 07:27] LABS: POTASSIUM 5.7 mmol/L (3.5-5.1)
[2020-03-30 07:35] LABS: BLOOD UREA NITROGEN 49.5 mg/dL (7-18); CALCIUM 8.7 mg/dL (8.5-10.1); MAGNESIUM 2.6 mg/dL (1.8-2.4)
[2020-03-30 07:38] LABS: PHOSPHOROUS 6.1 mg/dL (2.5-4.9)
[2020-03-30 07:39] LABS: BILIRUBIN,TOTAL 0.3 mg/dL (0.2-1); TOT PROT 6.2 g/dl (6.4-8.2)
[2020-03-30 07:51] LABS: CREATININE 3.6 mg/dL (0.55-1.3)
[2020-03-30] MEDS ORDERED: FUROSEMIDE 40 MG/4 ML INJECTABLE VIAL IVPUSH ONE (08:30)
[2020-03-30] MEDS ORDERED: PIPERACILLIN/TAZOB 2.25 GM 2.25 GM in DEXTROSE 5%-WATER - 50 ML IVPB SCH ×2 (10:00→18:00)
[2020-03-30] MEDS ORDERED: CEFTRIAXONE 1 GM in DEXTROSE 5%-WATER - 50 ML IVPB SCH (10:00)
[2020-03-30] MEDS ORDERED: INSULIN REGULAR HUMAN 100 UNITS/ML *VIAL IVPUSH ONE (10:01)
[2020-03-30] MEDS ORDERED: DEXTROSE 50%-WATER - 25 GM/50 ML VIAL IVPUSH ONE (10:02)
[2020-03-30] MEDS ORDERED: CALCIUM GLUCONATE 10% - 1,000 MG/10 ML VIAL IVPB ONE (10:02)
[2020-03-30] MEDS: SODIUM ZIRCONIUM CYCLOSILICATE (LOKELMA) 10 GM PACKET PO SCH (11:46)
[2020-03-30] MEDS ORDERED: DEXTROSE 50%-WATER 25 GM/50 ML DISP.SYRIN ONE (11:52)
[2020-03-30] MEDS: SODIUM CHLORIDE 0.45% 1,000 ML IV SCH (11:55)
[2020-03-30] MEDS ORDERED: PIPERACILLIN/TAZOBACTAM 2.25 GM VIAL IVPB ONE ×3 (13:40→17:57)
[2020-03-30] MEDS ORDERED: DEXTROSE 5%-WATER - 50 ML IVPB ONE ×3 (13:40→17:57)
[2020-03-30] MEDS: PIPERACILLIN/TAZOB 2.25 GM 2.25 GM in DEXTROSE 5%-WATER - 50 ML IVPB SCH ×2 (16:16→18:01)
[2020-03-30] MEDS ORDERED: ACETAMINOPHEN 1000 MG/100 ML VIAL (NON FORMULARY) IVPB ONE (21:00)
[2020-03-31] MEDS ORDERED: PIPERACILLIN/TAZOBACTAM 2.25 GM VIAL IVPB ONE ×2 (02:11→07:56)
[2020-03-31] MEDS ORDERED: DEXTROSE 5%-WATER - 50 ML IVPB ONE ×3 (02:11→10:32)
[2020-03-31] MEDS: PIPERACILLIN/TAZOB 2.25 GM 2.25 GM in DEXTROSE 5%-WATER - 50 ML IVPB SCH ×2 (02:50→09:16)
[2020-03-31] MEDS: INSULIN SLIDING SCALE (NOVOLOG) 1 VIAL SQ SCH ×3 (06:39→16:24)
[2020-03-31 07:35] LABS: BASO % 0.7 % (0-2.0); EOS % 3.4 % (0-4.5); HEMATOCRIT 27.7 % (32.4-45.2); HEMOGLOBIN 8.9 GM/dL (10.7-15.3); LYMPH % 29.1 % (8-40); MCH 30.8 pg (25.7-33.7); MEAN CELL VOLUME 96.5 fl (80-96); MEAN PLT VOLUME 11.1 fl (7.5-11.1); MONO % 9.2 % (3.8-10.2); NEUT % 57.6 % (42.8-82.8); PLATELET COUNT 209 K/MM3 (134-434); RBC 2.87 M/mm3 (3.60-5.2); RDW 14.8 % (11.6-15.6); WHITE BLOOD COUNT 6.7 K/mm3 (4.0-10.0)
[2020-03-31 07:58] LABS: ALBUMIN 2.6 g/dl (3.4-5.0); BLOOD UREA NITROGEN 47.2 mg/dL (7-18); CALCIUM 8.7 mg/dL (8.5-10.1)
[2020-03-31 07:59] LABS: MAGNESIUM 2.5 mg/dL (1.8-2.4)
[2020-03-31 08:01] LABS: CREATININE 3.4 mg/dL (0.55-1.3); PHOSPHOROUS 5.6 mg/dL (2.5-4.9)
[2020-03-31 08:03] LABS: BILIRUBIN,TOTAL 0.5 mg/dL (0.2-1); TOT PROT 5.5 g/dl (6.4-8.2)
[2020-03-31] MEDS: HYDROmorphone HCl 2 MG/ML VIAL IM PRN (08:11)
[2020-03-31] MEDS: SODIUM ZIRCONIUM CYCLOSILICATE (LOKELMA) 10 GM PACKET PO SCH (09:16)
[2020-03-31] MEDS: SODIUM CHLORIDE 0.45% 1,000 ML IV SCH (09:16)
[2020-03-31] MEDS ORDERED: HYDROmorphone HCl 2 MG/ML VIAL IVPUSH PRN (09:51)
[2020-03-31] MEDS ORDERED: CEFTRIAXONE 1 GM in DEXTROSE 5%-WATER - 50 ML IVPB SCH (10:00)
[2020-03-31] MEDS ORDERED: cefTRIAXone SODIUM 1 GM VIAL ONE (10:32)
[2020-03-31] MEDS ORDERED: INSULIN (NOVOLOG) ASPART 100 UNITS/ML 10ML VIAL ONE (11:34)
[2020-03-31] MEDS ORDERED: ALBUTEROL SO4 0.083% IH SOL 2.5 MG/3 ML VIAL.NEB. NEB PRN ×2 (16:10→19:54)
[2020-03-31] MEDS ORDERED: ROCURONIUM BROMIDE 100 MG/10 ML VIAL ONE (16:36)
[2020-03-31] MEDS ORDERED: TRANEXAMIC ACID 1000 MG/10 ML VIAL ONE (17:10)
[2020-03-31] MEDS ORDERED: MORPHINE SULFATE 2 MG/ML VIAL IVPUSH PRN (19:30)
[2020-03-31] MEDS ORDERED: MAGNESIUM HYDROX 2400MG/30ML ORAL SUSPENSION 30 ML CUP PO PRN (19:32)
[2020-03-31] MEDS ORDERED: SODIUM CHLORIDE 0.45% 1,000 ML IV SCH (19:54)
[2020-03-31] MEDS ORDERED: oxyCODONE HCL 5 MG TABLET PO PRN (19:58)
[2020-03-31] MEDS ORDERED: ONDANSETRON 4 MG/2 ML VIAL IVPUSH PRN (19:58)
[2020-03-31] MEDS ORDERED: LACTATED RINGERS SOLUTION 1,000 ML IV SCH (20:00)
[2020-03-31 21:23] LABS: BASO % 0.6 % (0-2.0); EOS % 1.5 % (0-4.5); HEMATOCRIT 25.7 % (32.4-45.2); HEMOGLOBIN 8.1 GM/dL (10.7-15.3); LYMPH % 19.9 % (8-40); MCH 30.3 pg (25.7-33.7); MCHC 31.4 g/dl (32.0-36.0); MEAN CELL VOLUME 96.5 fl (80-96); MEAN PLT VOLUME 10.6 fl (7.5-11.1); MONO % 8.9 % (3.8-10.2); NEUT % 69.1 % (42.8-82.8); PLATELET COUNT 222 K/MM3 (134-434); RBC 2.67 M/mm3 (3.60-5.2); RDW 14.4 % (11.6-15.6); WHITE BLOOD COUNT 10.6 K/mm3 (4.0-10.0)
[2020-03-31] MEDS ORDERED: HEPARIN NA (PORCINE) 5,000 UNITS/ML 1ML VIAL SQ SCH (22:00)
[2020-03-31] MEDS ORDERED: ACETAMINOPHEN 1000 MG/100 ML VIAL (NON FORMULARY) IVPB ONE ×2 (22:00)
[2020-03-31] MEDS: DOCUSATE SODIUM 100 MG CAPSULE (FP) PO SCH (22:29)
[2020-03-31] MEDS: CALCIUM 500MG/VIT-D 200 UNITS COMBO TABLET (FP) PO SCH (22:29)
[2020-03-31] MEDS ORDERED: guaiFENesin 200 MG/10 ML 10 ML UNIT-DOSE CUPS PO PRN (23:17)
[2020-04-01] MEDS: INSULIN SLIDING SCALE (NOVOLOG) 1 VIAL SQ SCH ×5 (00:04→21:38)
[2020-04-01 06:44] LABS: BASO % 0.8 % (0-2.0); EOS % 1.3 % (0-4.5); HEMATOCRIT 25.8 % (32.4-45.2); HEMOGLOBIN 8.2 GM/dL (10.7-15.3); LYMPH % 25.3 % (8-40); MCH 30.1 pg (25.7-33.7); MCHC 31.8 g/dl (32.0-36.0); MEAN CELL VOLUME 94.8 fl (80-96); MEAN PLT VOLUME 10.5 fl (7.5-11.1); MONO % 9.1 % (3.8-10.2); NEUT % 63.5 % (42.8-82.8); PLATELET COUNT 234 K/MM3 (134-434); RBC 2.72 M/mm3 (3.60-5.2); RDW 14.5 % (11.6-15.6); WHITE BLOOD COUNT 9.4 K/mm3 (4.0-10.0)
[2020-04-01] MEDS: DOCUSATE SODIUM 100 MG CAPSULE (FP) PO SCH ×3 (06:45→21:37)
[2020-04-01] MEDS ORDERED: INSULIN (LEVEMIR) 100 UNITS/ML UNITS SQ ONE (07:14)
[2020-04-01] MEDS ORDERED: cefTRIAXone SODIUM 1 GM VIAL ONE (08:38)
[2020-04-01] MEDS ORDERED: DEXTROSE 5%-WATER - 50 ML IVPB ONE (08:38)
[2020-04-01] MEDS: CALCIUM 500MG/VIT-D 200 UNITS COMBO TABLET (FP) PO SCH ×2 (09:56→21:37)
[2020-04-01] MEDS ORDERED: ENOXAPARIN NA (PORCINE) 40 MG/0.4 ML DISP.SYRIN SQ SCH (10:00)
[2020-04-01] MEDS ORDERED: CEFTRIAXONE 1 GM in DEXTROSE 5%-WATER - 50 ML IVPB SCH (10:00)
[2020-04-01] MEDS ORDERED: HEPARIN NA (PORCINE) 5,000 UNITS/ML 1ML VIAL SQ SCH (10:00)
[2020-04-01 10:53] LABS: POTASSIUM 4.3 mmol/L (3.5-5.1)
[2020-04-01 10:57] LABS: ALBUMIN 2.4 g/dl (3.4-5.0); BLOOD UREA NITROGEN 38.6 mg/dL (7-18); CALCIUM 8.4 mg/dL (8.5-10.1)
[2020-04-01 11:01] LABS: CREATININE 2.8 mg/dL (0.55-1.3)
[2020-04-01 11:02] LABS: BILIRUBIN,TOTAL 0.3 mg/dL (0.2-1); TOT PROT 5.5 g/dl (6.4-8.2)
[2020-04-01] MEDS ORDERED: INSULIN (NOVOLOG) ASPART 100 UNITS/ML 10ML VIAL ONE (11:32)
[2020-04-01] MEDS ORDERED: CODEINE SO4 30 MG TABLET PO PRN (13:08)
[2020-04-01] MEDS ORDERED: ACETAMINOPHEN 325 MG TABLET (FP) PO PRN (13:13)
[2020-04-01] MEDS ORDERED: MORPHINE SULFATE 2 MG/ML VIAL IVPUSH PRN (13:22)
[2020-04-01] MEDS ORDERED: ALBUTEROL SO4 0.083% IH SOL 2.5 MG/3 ML VIAL.NEB. NEB PRN (13:22)
[2020-04-01] MEDS ORDERED: MAGNESIUM HYDROX 2400MG/30ML ORAL SUSPENSION 30 ML CUP PO PRN (13:22)
[2020-04-01] MEDS ORDERED: ONDANSETRON 4 MG/2 ML VIAL IVPUSH PRN (13:22)
[2020-04-01] MEDS: HEPARIN NA (PORCINE) 5,000 UNITS/ML 1ML VIAL SQ SCH ×2 (14:18→21:37)
[2020-04-01] MEDS ORDERED: ACETAMINOPHEN 1000 MG/100 ML VIAL (NON FORMULARY) IVPB ONE ×2 (22:00)
[2020-04-02] MEDS: HEPARIN NA (PORCINE) 5,000 UNITS/ML 1ML VIAL SQ SCH ×2 (06:54→14:44)
[2020-04-02] MEDS: DOCUSATE SODIUM 100 MG CAPSULE (FP) PO SCH ×2 (06:54→14:42)
[2020-04-02] MEDS: INSULIN SLIDING SCALE (NOVOLOG) 1 VIAL SQ SCH ×3 (06:54→16:43)
[2020-04-02] MEDS: INSULIN (LEVEMIR) 100 UNITS/ML UNITS SQ SCH (06:55)
[2020-04-02] MEDS ORDERED: INSULIN (LEVEMIR) 100 UNITS/ML UNITS SQ SCH (07:00)
[2020-04-02] MEDS: ASPIRIN COATED 81 MG TABLET.EC PO SCH (10:25)
[2020-04-02] MEDS: CALCIUM 500MG/VIT-D 200 UNITS COMBO TABLET (FP) PO SCH (10:26)
[2020-04-02] MEDS: CLOPIDOGREL BISULFATE 75 MG TABLET (FP) PO SCH (10:26)
[2020-04-02 11:55] LABS: BASO % 0.7 % (0-2.0); EOS % 1.1 % (0-4.5); HEMATOCRIT 28.7 % (32.4-45.2); LYMPH % 19.1 % (8-40); MCH 29.7 pg (25.7-33.7); MCHC 31.3 g/dl (32.0-36.0); MEAN PLT VOLUME 10.7 fl (7.5-11.1); MONO % 7.6 % (3.8-10.2); NEUT % 71.5 % (42.8-82.8); PLATELET COUNT 286 K/MM3 (134-434); RBC 3.02 M/mm3 (3.60-5.2); RDW 14.4 % (11.6-15.6); WHITE BLOOD COUNT 9.8 K/mm3 (4.0-10.0)
[2020-04-02] MEDS: CEFTRIAXONE 1 GM in DEXTROSE 5%-WATER - 50 ML IVPB SCH (12:00)
[2020-04-02 12:25] LABS: POTASSIUM 4.3 mmol/L (3.5-5.1)
[2020-04-02 12:29] LABS: ALBUMIN 2.3 g/dl (3.4-5.0); BLOOD UREA NITROGEN 38.7 mg/dL (7-18); MAGNESIUM 2.2 mg/dL (1.8-2.4)
[2020-04-02 12:32] LABS: CREATININE 2.4 mg/dL (0.55-1.3); PHOSPHOROUS 4.1 mg/dL (2.5-4.9)
[2020-04-02 12:33] LABS: BILIRUBIN,TOTAL 0.4 mg/dL (0.2-1); TOT PROT 5.6 g/dl (6.4-8.2)
[2020-04-02] MEDS ORDERED: ACETAMINOPHEN 1000 MG/100 ML VIAL (NON FORMULARY) IVPB PRN (13:07)
[2020-04-02] MEDS ORDERED: SODIUM CHLORIDE 1,000 ML IV STA (13:23)
[2020-04-02] MEDS: amLODIPine BESYLATE 5 MG TABLET (FP) PO SCH (14:42)
[2020-04-02] MEDS: oxyCODONE HCL 5 MG TABLET PO PRN (15:14)
[2020-04-02] MEDS ORDERED: ROSUVASTATIN CA 40 MG TABLET PO SCH (22:00)
[2020-04-03] MEDS: INSULIN SLIDING SCALE (NOVOLOG) 1 VIAL SQ SCH ×5 (00:05→21:30)
[2020-04-03] MEDS: CALCIUM 500MG/VIT-D 200 UNITS COMBO TABLET (FP) PO SCH ×3 (00:05→21:33)
[2020-04-03] MEDS: DOCUSATE SODIUM 100 MG CAPSULE (FP) PO SCH ×4 (00:06→21:28)
[2020-04-03] MEDS: HEPARIN NA (PORCINE) 5,000 UNITS/ML 1ML VIAL SQ SCH ×4 (00:06→21:27)
[2020-04-03] MEDS: INSULIN (LEVEMIR) 100 UNITS/ML UNITS SQ SCH (06:17)
[2020-04-03 09:12] LABS: BASO % 0.8 % (0-2.0); EOS % 2.9 % (0-4.5); HEMATOCRIT 24.3 % (32.4-45.2); HEMOGLOBIN 7.8 GM/dL (10.7-15.3); LYMPH % 23.5 % (8-40); MCHC 31.9 g/dl (32.0-36.0); MEAN CELL VOLUME 94.2 fl (80-96); MEAN PLT VOLUME 10.2 fl (7.5-11.1); MONO % 6.9 % (3.8-10.2); NEUT % 65.9 % (42.8-82.8); PLATELET COUNT 302 K/MM3 (134-434); RBC 2.58 M/mm3 (3.60-5.2); RDW 14.2 % (11.6-15.6)
[2020-04-03 09:32] LABS: POTASSIUM 3.6 mmol/L (3.5-5.1)
[2020-04-03 09:34] LABS: CALCIUM 8.7 mg/dL (8.5-10.1)
[2020-04-03 09:38] LABS: CREATININE 1.8 mg/dL (0.55-1.3)
[2020-04-03] MEDS ORDERED: DEXTROSE 5%-WATER - 50 ML IVPB ONE (10:00)
[2020-04-03] MEDS ORDERED: cefTRIAXone SODIUM 1 GM VIAL ONE (10:00)
[2020-04-03] MEDS: amLODIPine BESYLATE 5 MG TABLET (FP) PO SCH (10:04)
[2020-04-03] MEDS: CLOPIDOGREL BISULFATE 75 MG TABLET (FP) PO SCH (10:06)
[2020-04-03] MEDS: ASPIRIN COATED 81 MG TABLET.EC PO SCH (10:07)
[2020-04-03] MEDS: CEFTRIAXONE 1 GM in DEXTROSE 5%-WATER - 50 ML IVPB SCH (10:07)
[2020-04-03] MEDS: oxyCODONE HCL 5 MG TABLET PO PRN (14:03)
[2020-04-03] MEDS: SENNOSIDES 8.6MG TABLET (FP) PO SCH (21:28)
[2020-04-03] MEDS ORDERED: ACETAMINOPHEN 500 MG TABLET (FP) PO PRN (21:51)
[2020-04-04] MEDS: HEPARIN NA (PORCINE) 5,000 UNITS/ML 1ML VIAL SQ SCH ×3 (06:17→22:08)
[2020-04-04] MEDS: DOCUSATE SODIUM 100 MG CAPSULE (FP) PO SCH ×3 (06:17→22:09)
[2020-04-04] MEDS: INSULIN SLIDING SCALE (NOVOLOG) 1 VIAL SQ SCH ×4 (06:21→22:13)
[2020-04-04] MEDS: INSULIN (LEVEMIR) 100 UNITS/ML UNITS SQ SCH (06:34)
[2020-04-04 07:39] LABS: HEMATOCRIT 26.4 % (32.4-45.2); HEMOGLOBIN 8.5 GM/dL (10.7-15.3); MCH 30.5 pg (25.7-33.7); MCHC 32.2 g/dl (32.0-36.0); MEAN CELL VOLUME 94.7 fl (80-96); MEAN PLT VOLUME 9.7 fl (7.5-11.1); PLATELET COUNT 331 K/MM3 (134-434); RBC 2.79 M/mm3 (3.60-5.2); RDW 14.5 % (11.6-15.6); WHITE BLOOD COUNT 9.1 K/mm3 (4.0-10.0)
[2020-04-04 07:55] LABS: POTASSIUM 3.9 mmol/L (3.5-5.1)
[2020-04-04 07:57] LABS: BLOOD UREA NITROGEN 29.5 mg/dL (7-18); CALCIUM 9.1 mg/dL (8.5-10.1); MAGNESIUM 1.8 mg/dL (1.8-2.4)
[2020-04-04 08:01] LABS: CREATININE 1.6 mg/dL (0.55-1.3)
[2020-04-04] MEDS ORDERED: cefTRIAXone SODIUM 1 GM VIAL ONE (09:45)
[2020-04-04] MEDS ORDERED: DEXTROSE 5%-WATER - 50 ML IVPB ONE (09:45)
[2020-04-04] MEDS ORDERED: PT OWN MED DRAWER 7, Y5N ONE (09:45)
[2020-04-04] MEDS ORDERED: INSULIN (NOVOLOG) ASPART 100 UNITS/ML 10ML VIAL ONE (09:46)
[2020-04-04] MEDS: CLOPIDOGREL BISULFATE 75 MG TABLET (FP) PO SCH (09:57)
[2020-04-04] MEDS: CALCIUM 500MG/VIT-D 200 UNITS COMBO TABLET (FP) PO SCH ×2 (09:57→22:08)
[2020-04-04] MEDS: ASPIRIN COATED 81 MG TABLET.EC PO SCH (09:58)
[2020-04-04] MEDS: amLODIPine BESYLATE 5 MG TABLET (FP) PO SCH (09:58)
[2020-04-04] MEDS: CEFTRIAXONE 1 GM in DEXTROSE 5%-WATER - 50 ML IVPB SCH (09:58)
[2020-04-04] MEDS: SENNOSIDES 8.6MG TABLET (FP) PO SCH (22:09)
[2020-04-05] MEDS: oxyCODONE HCL 5 MG TABLET PO PRN ×2 (06:15→10:41)
[2020-04-05] MEDS: INSULIN SLIDING SCALE (NOVOLOG) 1 VIAL SQ SCH ×4 (06:18→22:03)
[2020-04-05] MEDS: DOCUSATE SODIUM 100 MG CAPSULE (FP) PO SCH ×3 (06:19→21:59)
[2020-04-05] MEDS: HEPARIN NA (PORCINE) 5,000 UNITS/ML 1ML VIAL SQ SCH ×3 (06:19→21:58)
[2020-04-05] MEDS: INSULIN (LEVEMIR) 100 UNITS/ML UNITS SQ SCH (06:19)
[2020-04-05 08:11] LABS: HEMATOCRIT 28.2 % (32.4-45.2); MCHC 31.9 g/dl (32.0-36.0); MEAN PLT VOLUME 9.8 fl (7.5-11.1); PLATELET COUNT 353 K/MM3 (134-434); RDW 14.5 % (11.6-15.6); WHITE BLOOD COUNT 9.5 K/mm3 (4.0-10.0)
[2020-04-05 08:16] LABS: POTASSIUM 3.8 mmol/L (3.5-5.1)
[2020-04-05 08:19] LABS: BLOOD UREA NITROGEN 26.9 mg/dL (7-18); CALCIUM 9.4 mg/dL (8.5-10.1)
[2020-04-05 08:23] LABS: CREATININE 1.4 mg/dL (0.55-1.3)
[2020-04-05] MEDS ORDERED: cefTRIAXone SODIUM 1 GM VIAL ONE (10:24)
[2020-04-05] MEDS ORDERED: DEXTROSE 5%-WATER - 50 ML IVPB ONE (10:24)
[2020-04-05] MEDS: CLOPIDOGREL BISULFATE 75 MG TABLET (FP) PO SCH (10:29)
[2020-04-05] MEDS: amLODIPine BESYLATE 5 MG TABLET (FP) PO SCH (10:29)
[2020-04-05] MEDS: CEFTRIAXONE 1 GM in DEXTROSE 5%-WATER - 50 ML IVPB SCH (10:29)
[2020-04-05] MEDS: CALCIUM 500MG/VIT-D 200 UNITS COMBO TABLET (FP) PO SCH ×2 (10:29→21:59)
[2020-04-05] MEDS: ASPIRIN COATED 81 MG TABLET.EC PO SCH (10:30)
[2020-04-05] MEDS ORDERED: INSULIN (NOVOLOG) ASPART 100 UNITS/ML 10ML VIAL ONE ×2 (11:59→16:37)
[2020-04-05 15:21] VITALS: BMI 35.3
[2020-04-05] MEDS: SENNOSIDES 8.6MG TABLET (FP) PO SCH (21:59)
[2020-04-06] MEDS: HEPARIN NA (PORCINE) 5,000 UNITS/ML 1ML VIAL SQ SCH ×2 (06:08→13:24)
[2020-04-06] MEDS: DOCUSATE SODIUM 100 MG CAPSULE (FP) PO SCH ×2 (06:08→13:25)
[2020-04-06] MEDS: INSULIN SLIDING SCALE (NOVOLOG) 1 VIAL SQ SCH ×3 (06:09→16:23)
[2020-04-06] MEDS: INSULIN (LEVEMIR) 100 UNITS/ML UNITS SQ SCH (06:29)
[2020-04-06] MEDS ORDERED: INSULIN (NOVOLOG) ASPART 100 UNITS/ML 10ML VIAL ONE ×2 (06:40→11:15)
[2020-04-06 08:05] LABS: BASO % 0.7 % (0-2.0); EOS % 3.1 % (0-4.5); HEMATOCRIT 26.7 % (32.4-45.2); HEMOGLOBIN 8.5 GM/dL (10.7-15.3); LYMPH % 32.9 % (8-40); MCH 30.4 pg (25.7-33.7); MEAN CELL VOLUME 94.9 fl (80-96); MEAN PLT VOLUME 9.5 fl (7.5-11.1); MONO % 7.1 % (3.8-10.2); NEUT % 56.2 % (42.8-82.8); PLATELET COUNT 327 K/MM3 (134-434); RBC 2.81 M/mm3 (3.60-5.2); RDW 14.3 % (11.6-15.6); WHITE BLOOD COUNT 9.8 K/mm3 (4.0-10.0)
[2020-04-06 08:27] LABS: ALBUMIN 2.2 g/dl (3.4-5.0); CALCIUM 9.4 mg/dL (8.5-10.1)
[2020-04-06 08:28] LABS: BLOOD UREA NITROGEN 29.7 mg/dL (7-18); MAGNESIUM 1.7 mg/dL (1.8-2.4)
[2020-04-06 08:30] LABS: CREATININE 1.4 mg/dL (0.55-1.3)
[2020-04-06 08:31] LABS: PHOSPHOROUS 3.2 mg/dL (2.5-4.9)
[2020-04-06 08:32] LABS: BILIRUBIN,TOTAL 0.4 mg/dL (0.2-1); TOT PROT 5.4 g/dl (6.4-8.2)
[2020-04-06] MEDS: amLODIPine BESYLATE 5 MG TABLET (FP) PO SCH (09:42)
[2020-04-06] MEDS: CALCIUM 500MG/VIT-D 200 UNITS COMBO TABLET (FP) PO SCH (09:42)
[2020-04-06] MEDS: CLOPIDOGREL BISULFATE 75 MG TABLET (FP) PO SCH (09:42)
[2020-04-06] MEDS: ASPIRIN COATED 81 MG TABLET.EC PO SCH (09:42)
[2020-04-06] MEDS ORDERED: MAGNESIUM OXIDE 400 MG TABLET (FP) PO ONE (12:44)
[2020-04-06 15:20] VITALS: BP 176/58; PULSE 71; TEMP 97.9
== END 2020-04-06 22:00 | DRG 480 ==
LOC: JER 15:18 → JERBED 19:26 → J6S 23:08 → J4W 03-29 20:03 → J6WEST-2 04-01 14:53 → J6S 04-02 18:20
PROVIDERS: ADMIT Internal Medicine; ATTEND Internal Medicine
PROC: 0QSB04Z Reposition Right Lower Femur with Internal Fixation Device, Open Approach (ICD-10-PCS; principal; 2020-03-31 16:00)
DX: S72.91XA Unspecified fracture of right femur, initial encounter for closed fracture (principal); G92 Toxic encephalopathy; N17.9 Acute kidney failure, unspecified; N39.0 Urinary tract infection, site not specified; I50.32 Chronic diastolic (congestive) heart failure; I13.0 Hypertensive heart and chronic kidney disease with heart failure and stage 1 through stage 4 chronic kidney disease, or unspecified chronic kidney disease; K56.7 Ileus, unspecified; E11.65 Type 2 diabetes mellitus with hyperglycemia; E87.5 Hyperkalemia; E66.9 Obesity, unspecified; E88.09 Other disorders of plasma-protein metabolism, not elsewhere classified; N18.9 Chronic kidney disease, unspecified; K21.9 Gastro-esophageal reflux disease without esophagitis; I25.10 Atherosclerotic heart disease of native coronary artery without angina pectoris; Z95.1 Presence of aortocoronary bypass graft; R74.01 Elevation of levels of liver transaminase levels; W19.XXXA Unspecified fall, initial encounter; Y92.009 Unspecified place in unspecified non-institutional (private) residence as the place of occurrence of the external cause; Y93.9 Activity, unspecified; Y99.9 Unspecified external cause status; N28.1 Cyst of kidney, acquired; Z95.5 Presence of coronary angioplasty implant and graft; K59.00 Constipation, unspecified; Z68.35 Body mass index [BMI] 35.0-35.9, adult; E78.5 Hyperlipidemia, unspecified; E86.0 Dehydration; B96.20 Unspecified Escherichia coli [E. coli] as the cause of diseases classified elsewhere
CPT/HCPCS: 36415; 70450-TC; 71045-TC-FY; 72170-TC-FY; 73552-TC-RT-FY; 73562-TC-RT-FY; 73590-TC-RT-FY; 73700-TC-RT; 74018-TC-FY; 74176-TC; 76000-TC-FY; 80048; 80053; 81003; 82962; 83735; 84100; 84132; 84484; 85025; 85027; 85610; 85730; 86850; 86900; 86901; 86922; 87040; 87086; 87186; 93005; 93010; 94010; 94760; 97116-GP; 97162-GP; 99285-25; C9803; J0131; J1644; Q9967; U0003

== ENCOUNTER 2020-06-11 16:28 | Inpatient (IN) | payer MEDICARE, OTHER ==
[2020-06-11] MEDS ORDERED: SODIUM CHLORIDE 1,000 ML IV STA (17:32)
[2020-06-11 17:54] LABS: BASO % 0.4 % (0-2.0); EOS % 7.1 % (0-4.5); HEMATOCRIT 20.9 % (32.4-45.2); LYMPH % 27.2 % (8-40); MCH 29.6 pg (25.7-33.7); MCHC 31.6 g/dl (32.0-36.0); MEAN CELL VOLUME 93.6 fl (80-96); MEAN PLT VOLUME 10.2 fl (7.5-11.1); MONO % 7.1 % (3.8-10.2); NEUT % 58.2 % (42.8-82.8); PLATELET COUNT 116 K/MM3 (134-434); RBC 2.23 M/mm3 (3.60-5.2); RDW 16.8 % (11.6-15.6); WHITE BLOOD COUNT 5.9 K/mm3 (4.0-10.0)
[2020-06-11 18:02] LABS: HEMOGLOBIN 6.6 GM/dL (10.7-15.3)
[2020-06-11 18:04] LABS: INR 0.95 (0.83-1.09); PROTHROMBIN TIME (PATIENT) 11.7 SEC (9.7-13.0)
[2020-06-11 18:13] LABS: POTASSIUM 5.2 mmol/L (3.5-5.1)
[2020-06-11 18:15] LABS: CALCIUM 7.2 mg/dL (8.5-10.1)
[2020-06-11 18:16] LABS: ALBUMIN 1.9 g/dl (3.4-5.0); BLOOD UREA NITROGEN 75.6 mg/dL (7-18)
[2020-06-11 18:20] LABS: BILIRUBIN,TOTAL 0.1 mg/dL (0.2-1); TOT PROT 4.5 g/dl (6.4-8.2)
[2020-06-11 19:01] LABS: N-TERMINAL BNP 9611.2 pg/ml (5-450)
[2020-06-11] MEDS ORDERED: CALCIUM GLUCONATE 10% - 1,000 MG/10 ML VIAL IVPB ONE (21:18)
[2020-06-11] MEDS ORDERED: LACTATED RINGERS SOLUTION 1000 ML INFUS.BAG IV ONE (21:18)
[2020-06-11] MEDS ORDERED: PANTOPRAZOLE SODIUM 40 MG VIAL IVPUSH ONE (21:33)
[2020-06-11] MEDS ORDERED: GlUCAGON HUMAN RECOMBINANT 1 MG/VIAL IVPUSH ONE (21:42)
[2020-06-11] MEDS ORDERED: INSULIN REGULAR HUMAN 100 UNITS/ML *VIAL IVPUSH ONE (21:42)
[2020-06-11] MEDS ORDERED: CALCIUM GLUCONATE 10% - 1,000 MG/10 ML VIAL ONE (21:43)
[2020-06-11] MEDS ORDERED: PANTOPRAZOLE SODIUM 40 MG VIAL ONE (21:43)
[2020-06-11] MEDS ORDERED: PHENYLEPHRINE NS PREMIX 25,000 MCG/250 ML BAG CVP SCH (21:45)
[2020-06-11] MEDS ORDERED: GLUCAGON 1 MG KIT ONE (23:26)
[2020-06-12] MEDS: NOREPINEPHRINE BITARTRATE 8,000 MCG/500 ML BAG IVPB SCH (00:09)
[2020-06-12] MEDS: PANTOPRAZOLE SODIUM 80 MG in SODIUM CHLORIDE 100 ML IVPB SCH ×3 (01:06→22:08)
[2020-06-12] MEDS ORDERED: ONDANSETRON 4 MG/2 ML VIAL IVPUSH ONE (03:45)
[2020-06-12 04:57] LABS: BASO % 0.5 % (0-2.0); EOS % 6.6 % (0-4.5); HEMATOCRIT 30.4 % (32.4-45.2); HEMOGLOBIN 9.9 GM/dL (10.7-15.3); LYMPH % 23.3 % (8-40); MCH 30.7 pg (25.7-33.7); MCHC 32.5 g/dl (32.0-36.0); MEAN CELL VOLUME 94.4 fl (80-96); MEAN PLT VOLUME 10.1 fl (7.5-11.1); MONO % 7.5 % (3.8-10.2); NEUT % 62.1 % (42.8-82.8); PLATELET COUNT 133 K/MM3 (134-434); RBC 3.22 M/mm3 (3.60-5.2); RDW 15.5 % (11.6-15.6); WHITE BLOOD COUNT 9.2 K/mm3 (4.0-10.0)
[2020-06-12 05:05] LABS: INR 0.96 (0.83-1.09); PROTHROMBIN TIME (PATIENT) 11.8 SEC (9.7-13.0)
[2020-06-12 05:08] LABS: ACTIVATED PTT 29.6 SECONDS (25.2-36.5)
[2020-06-12 05:14] LABS: POTASSIUM 5.7 mmol/L (3.5-5.1)
[2020-06-12 05:17] LABS: ALBUMIN 1.9 g/dl (3.4-5.0); BLOOD UREA NITROGEN 65.6 mg/dL (7-18); CALCIUM 7.2 mg/dL (8.5-10.1)
[2020-06-12 05:20] LABS: CREATININE 4.6 mg/dL (0.55-1.3); PHOSPHOROUS 6.4 mg/dL (2.5-4.9)
[2020-06-12 05:22] LABS: BILIRUBIN,TOTAL 0.6 mg/dL (0.2-1); TOT PROT 4.6 g/dl (6.4-8.2)
[2020-06-12] MEDS ORDERED: INSULIN REGULAR HUMAN 100 UNITS/ML *VIAL IVPUSH ONE (05:33)
[2020-06-12] MEDS ORDERED: CALCIUM CHLORIDE 1 GM/10 ML *DISP.SYRIN IVPUSH ONE (05:33)
[2020-06-12] MEDS ORDERED: INSULIN SLIDING SCALE (NOVOLOG) 1 VIAL SQ SCH (07:00)
[2020-06-12] MEDS ORDERED: SODIUM ZIRCONIUM CYCLOSILICATE (LOKELMA) 5 GM PACKET PO ONE ×2 (07:10→20:00)
[2020-06-12] MEDS ORDERED: SODIUM BICARBONATE 8.4% 50 MEQ/50 ML VIAL IV ONE (07:15)
[2020-06-12] MEDS ORDERED: HEPARIN NA (PORCINE) 5,000 UNITS/ML 1ML VIAL IVPUSH ONE (08:34)
[2020-06-12] MEDS ORDERED: HEPARIN NA (PORCINE) 5,000 UNITS/ML 1ML VIAL IVPUSH PRN (08:34)
[2020-06-12 08:57] LABS: POTASSIUM 5.3 mmol/L (3.5-5.1)
[2020-06-12 08:59] LABS: CALCIUM 7.1 mg/dL (8.5-10.1); MAGNESIUM 2.3 mg/dL (1.8-2.4)
[2020-06-12 09:02] LABS: CREATININE 4.8 mg/dL (0.55-1.3)
[2020-06-12 09:03] LABS: PHOSPHOROUS 6.5 mg/dL (2.5-4.9)
[2020-06-12] MEDS ORDERED: PT OWN MED DRAWER 7, Y5N ONE ×3 (09:17→13:54)
[2020-06-12] MEDS: INSULIN SLIDING SCALE (NOVOLOG) 1 VIAL SQ SCH ×4 (09:38→22:11)
[2020-06-12 09:47] LABS: BASO % 0.3 % (0-2.0); HEMATOCRIT 30.4 % (32.4-45.2); HEMOGLOBIN 9.9 GM/dL (10.7-15.3); LYMPH % 17.3 % (8-40); MCH 30.5 pg (25.7-33.7); MCHC 32.7 g/dl (32.0-36.0); MEAN PLT VOLUME 10.2 fl (7.5-11.1); MONO % 8.2 % (3.8-10.2); NEUT % 69.2 % (42.8-82.8); PLATELET COUNT 145 K/MM3 (134-434); RBC 3.27 M/mm3 (3.60-5.2); RDW 15.1 % (11.6-15.6); WHITE BLOOD COUNT 7.4 K/mm3 (4.0-10.0)
[2020-06-12] MEDS: HEPARIN INFUSION - 25,000 UNITS/500 ML INFUS.BAG IVPB SCH ×2 (10:11→19:45)
[2020-06-12] MEDS ORDERED: SODIUM CHLORIDE 500 ML IV STA (11:11)
[2020-06-12] MEDS ORDERED: FUROSEMIDE 40 MG/5 ML UNIT-DOSE CUP PO ONE (13:59)
[2020-06-12] MEDS ORDERED: SODIUM BICARBONATE 8.4% 50 MEQ/50 ML DISP.SYRIN IVPUSH ONE (14:00)
[2020-06-12] MEDS ORDERED: SODIUM CHLORIDE 0.45% 1,000 ML IV SCH (14:00)
[2020-06-12 14:39] LABS: EPI CELLS >36 /uL (0-25.1); HYALINE CASTS 27 /uL (0-3.1); PH,URINE 5.5 (5.0-8.0); URINE APPEARANCE TURBID; URINE BACTERIA >9,000 /uL (0-1359); URINE BILIRUBIN NEGATIVE (NEGATIVE); URINE COLOR YELLOW; URINE GLUCOSE (UA) NEGATIVE (NEGATIVE); URINE KETONE NEGATIVE (NEGATIVE); URINE LEUK ESTERASE 3+ (NEGATIVE); URINE NITRITE NEGATIVE (NEGATIVE); URINE PROTEIN 2+ (NEGATIVE); URINE UROBILINOGEN 0.2 mg/dL (0.2-1.0); URINE WBC 12828 /uL (0-25.8)
[2020-06-12] MEDS: MUPIROCIN 2% TOPICAL OINTMENT FOR DECOLONIZATION NS SCH ×2 (14:53→22:09)
[2020-06-12 16:52] LABS: URINE RBC 192.4 /uL (0-23.9)
[2020-06-12 18:38] LABS: POTASSIUM 5.1 mmol/L (3.5-5.1)
[2020-06-12 18:40] LABS: BLOOD UREA NITROGEN 76.1 mg/dL (7-18); CALCIUM 7.8 mg/dL (8.5-10.1)
[2020-06-12 18:44] LABS: CREATININE 4.6 mg/dL (0.55-1.3)
[2020-06-12 19:20] LABS: HEMATOCRIT 29.9 % (32.4-45.2); HEMOGLOBIN 9.9 GM/dL (10.7-15.3); MCH 30.5 pg (25.7-33.7); MCHC 33.1 g/dl (32.0-36.0); MEAN PLT VOLUME 10.1 fl (7.5-11.1); PLATELET COUNT 146 K/MM3 (134-434); RBC 3.25 M/mm3 (3.60-5.2); RDW 15.8 % (11.6-15.6); WHITE BLOOD COUNT 7.5 K/mm3 (4.0-10.0)
[2020-06-12] MEDS: CHLORHEXIDINE GLUCONATE 4% CLEANSER FOR DECOLONIZATION TP SCH (22:09)
[2020-06-13] MEDS: INSULIN SLIDING SCALE (NOVOLOG) 1 VIAL SQ SCH ×4 (07:00→21:36)
[2020-06-13 07:18] LABS: BASO % 0.3 % (0-2.0); EOS % 7.8 % (0-4.5); HEMATOCRIT 28.9 % (32.4-45.2); HEMOGLOBIN 9.9 GM/dL (10.7-15.3); LYMPH % 27.2 % (8-40); MCH 30.9 pg (25.7-33.7); MCHC 34.2 g/dl (32.0-36.0); MEAN CELL VOLUME 90.4 fl (80-96); MEAN PLT VOLUME 9.8 fl (7.5-11.1); MONO % 8.1 % (3.8-10.2); NEUT % 56.6 % (42.8-82.8); PLATELET COUNT 164 K/MM3 (134-434); RDW 15.6 % (11.6-15.6); WHITE BLOOD COUNT 7.9 K/mm3 (4.0-10.0)
[2020-06-13 07:38] LABS: CALCIUM 7.4 mg/dL (8.5-10.1)
[2020-06-13 07:39] LABS: ALBUMIN 1.9 g/dl (3.4-5.0)
[2020-06-13 07:42] LABS: CREATININE 4.7 mg/dL (0.55-1.3)
[2020-06-13 07:43] LABS: BILIRUBIN,TOTAL 0.4 mg/dL (0.2-1); TOT PROT 4.9 g/dl (6.4-8.2)
[2020-06-13] MEDS: MUPIROCIN 2% TOPICAL OINTMENT FOR DECOLONIZATION NS SCH ×2 (09:51→21:37)
[2020-06-13] MEDS ORDERED: SODIUM ZIRCONIUM CYCLOSILICATE (LOKELMA) 5 GM PACKET PO SCH (10:00)
[2020-06-13] MEDS ORDERED: FUROSEMIDE 40 MG/4 ML INJECTABLE VIAL IVPUSH ONE (13:01)
[2020-06-13 14:36] LABS: VENOUS BASE EXCESS -10.8 mmol/L (-2-2); VENOUS O2 SATURATION 78.6 % (70-80); VENOUS PCO2 50.7 mmHg (38-52)
[2020-06-13 14:38] LABS: VENOUS PH 7.159 (7.310-7.410)
[2020-06-13] MEDS: NOREPINEPHRINE BITARTRATE 8,000 MCG/500 ML BAG IVPB SCH (16:30)
[2020-06-13] MEDS: HEPARIN INFUSION - 25,000 UNITS/500 ML INFUS.BAG IVPB SCH (17:00)
[2020-06-13] MEDS: CHLORHEXIDINE GLUCONATE 4% CLEANSER FOR DECOLONIZATION TP SCH (21:37)
[2020-06-14] MEDS: NOREPINEPHRINE BITARTRATE 8,000 MCG/500 ML BAG IVPB SCH (06:08)
[2020-06-14] MEDS: INSULIN SLIDING SCALE (NOVOLOG) 1 VIAL SQ SCH ×4 (06:10→22:03)
[2020-06-14] MEDS: HEPARIN INFUSION - 25,000 UNITS/500 ML INFUS.BAG IVPB SCH (07:27)
[2020-06-14 07:31] LABS: BASO % 0.5 % (0-2.0); EOS % 8.8 % (0-4.5); HEMATOCRIT 28.2 % (32.4-45.2); HEMOGLOBIN 9.4 GM/dL (10.7-15.3); LYMPH % 27.1 % (8-40); MCH 30.4 pg (25.7-33.7); MCHC 33.4 g/dl (32.0-36.0); MEAN PLT VOLUME 9.6 fl (7.5-11.1); MONO % 9.3 % (3.8-10.2); NEUT % 54.3 % (42.8-82.8); PLATELET COUNT 188 K/MM3 (134-434); RBC 3.11 M/mm3 (3.60-5.2); RDW 16.3 % (11.6-15.6); WHITE BLOOD COUNT 7.3 K/mm3 (4.0-10.0)
[2020-06-14 08:18] LABS: ALBUMIN 1.8 g/dl (3.4-5.0); BILIRUBIN,TOTAL 0.3 mg/dL (0.2-1); BLOOD UREA NITROGEN 76.3 mg/dL (7-18); CALCIUM 7.3 mg/dL (8.5-10.1); MAGNESIUM 2.1 mg/dL (1.8-2.4); PHOSPHOROUS 6.5 mg/dL (2.5-4.9); TOT PROT 4.4 g/dl (6.4-8.2)
[2020-06-14] MEDS ORDERED: PANTOPRAZOLE SODIUM 40 MG VIAL IVPUSH SCH (10:00)
[2020-06-14] MEDS: MUPIROCIN 2% TOPICAL OINTMENT FOR DECOLONIZATION NS SCH ×2 (10:26→22:04)
[2020-06-14] MEDS ORDERED: FUROSEMIDE 40 MG/4 ML INJECTABLE VIAL IVPUSH ONE ×2 (13:42→20:17)
[2020-06-14] MEDS ORDERED: MEROPENEM 1 GM VIAL (RESTRICTED TO ID) IVPB ONE (15:15)
[2020-06-14] MEDS ORDERED: DEXTROSE 5%-WATER 100 ML IVPB ONE (15:15)
[2020-06-14] MEDS: MEROPENEM 1 GM in DEXTROSE 5%-WATER 100 ML IVPB SCH (15:22)
[2020-06-14 18:38] LABS: ARTERIAL BLD GAS O2 SATURATION 94.8 mmHg (95-98); ARTERIAL BLOOD GAS BASE EXCESS -9.7 mmol/L (-2-2); ARTERIAL BLOOD GAS PO2 89.6 mmHg (80-100)
[2020-06-14 18:40] LABS: ALLENS TEST POSITIVE
[2020-06-14 18:41] LABS: VENT MODE ST; VENT RATE 16
[2020-06-14 18:42] LABS: ARTERIAL BLOOD GAS pH 7.195 (7.350-7.450)
[2020-06-14] MEDS: SODIUM BICARBONATE 8.4% 50 MEQ/50 ML VIAL IV SCH ×2 (20:03→23:59)
[2020-06-14] MEDS: CHLORHEXIDINE GLUCONATE 4% CLEANSER FOR DECOLONIZATION TP SCH (22:04)
[2020-06-14] MEDS: PANTOPRAZOLE SODIUM 40 MG VIAL IVPUSH SCH (22:04)
[2020-06-15] MEDS ORDERED: DEXTROSE 5%-WATER 100 ML IVPB ONE ×2 (01:22→12:18)
[2020-06-15] MEDS ORDERED: MEROPENEM 1 GM VIAL (RESTRICTED TO ID) IVPB ONE ×2 (01:22→12:18)
[2020-06-15] MEDS: MEROPENEM 1 GM in DEXTROSE 5%-WATER 100 ML IVPB SCH ×2 (01:27→14:20)
[2020-06-15 06:13] LABS: ARTERIAL BLD GAS O2 SATURATION 95.4 mmHg (95-98); ARTERIAL BLOOD GAS BASE EXCESS -5.2 mmol/L (-2-2); ARTERIAL BLOOD GAS PO2 85.9 mmHg (80-100); ARTERIAL BLOOD GAS pH 7.286 (7.350-7.450)
[2020-06-15 06:15] LABS: ALLENS TEST POSITIVE
[2020-06-15 06:16] LABS: VENT RATE 16
[2020-06-15] MEDS: INSULIN SLIDING SCALE (NOVOLOG) 1 VIAL SQ SCH ×4 (06:30→22:23)
[2020-06-15 07:02] LABS: HEMATOCRIT 27.3 % (32.4-45.2); HEMOGLOBIN 9.2 GM/dL (10.7-15.3); MCH 30.7 pg (25.7-33.7); MCHC 33.8 g/dl (32.0-36.0); MEAN CELL VOLUME 90.7 fl (80-96); MEAN PLT VOLUME 9.5 fl (7.5-11.1); PLATELET COUNT 183 K/MM3 (134-434); RBC 3.01 M/mm3 (3.60-5.2); RDW 16.1 % (11.6-15.6); WHITE BLOOD COUNT 6.6 K/mm3 (4.0-10.0)
[2020-06-15 07:19] LABS: POTASSIUM 4.6 mmol/L (3.5-5.1)
[2020-06-15 07:21] LABS: CALCIUM 7.5 mg/dL (8.5-10.1)
[2020-06-15 07:22] LABS: ALBUMIN 1.7 g/dl (3.4-5.0); BLOOD UREA NITROGEN 78.9 mg/dL (7-18); MAGNESIUM 1.8 mg/dL (1.8-2.4)
[2020-06-15 07:25] LABS: CREATININE 5.3 mg/dL (0.55-1.3); PHOSPHOROUS 6.2 mg/dL (2.5-4.9)
[2020-06-15 07:26] LABS: BILIRUBIN,TOTAL 0.3 mg/dL (0.2-1); TOT PROT 4.3 g/dl (6.4-8.2)
[2020-06-15] MEDS: HEPARIN INFUSION - 25,000 UNITS/500 ML INFUS.BAG IVPB SCH (08:50)
[2020-06-15] MEDS ORDERED: PT OWN MED DRAWER 7, Y5N ONE (09:08)
[2020-06-15] MEDS: HEPARIN NA (PORCINE) 5,000 UNITS/ML 1ML VIAL IVPUSH PRN (09:10)
[2020-06-15] MEDS: NOREPINEPHRINE BITARTRATE 8,000 MCG/500 ML BAG IVPB SCH (09:10)
[2020-06-15] MEDS: PANTOPRAZOLE SODIUM 40 MG VIAL IVPUSH SCH ×2 (09:11→22:24)
[2020-06-15] MEDS: MUPIROCIN 2% TOPICAL OINTMENT FOR DECOLONIZATION NS SCH ×2 (10:25→22:22)
[2020-06-15] MEDS: CHLORHEXIDINE GLUCONATE 4% CLEANSER FOR DECOLONIZATION TP SCH (22:23)
[2020-06-16] MEDS: HEPARIN NA (PORCINE) 5,000 UNITS/ML 1ML VIAL IVPUSH PRN ×2 (01:27→16:33)
[2020-06-16] MEDS ORDERED: MEROPENEM 1 GM VIAL (RESTRICTED TO ID) IVPB ONE ×2 (01:45→13:27)
[2020-06-16] MEDS ORDERED: DEXTROSE 5%-WATER 100 ML IVPB ONE ×2 (01:46→13:28)
[2020-06-16] MEDS: MEROPENEM 1 GM in DEXTROSE 5%-WATER 100 ML IVPB SCH ×2 (01:48→13:30)
[2020-06-16] MEDS: HEPARIN INFUSION - 25,000 UNITS/500 ML INFUS.BAG IVPB SCH (05:16)
[2020-06-16 06:37] LABS: HEMATOCRIT 27.6 % (32.4-45.2); HEMOGLOBIN 9.1 GM/dL (10.7-15.3); MCH 30.4 pg (25.7-33.7); MCHC 33.1 g/dl (32.0-36.0); MEAN CELL VOLUME 92.1 fl (80-96); MEAN PLT VOLUME 9.5 fl (7.5-11.1); PLATELET COUNT 194 K/MM3 (134-434); RDW 15.8 % (11.6-15.6); WHITE BLOOD COUNT 6.5 K/mm3 (4.0-10.0)
[2020-06-16 06:52] LABS: POTASSIUM 4.5 mmol/L (3.5-5.1)
[2020-06-16 06:54] LABS: ALBUMIN 1.8 g/dl (3.4-5.0); BLOOD UREA NITROGEN 76.6 mg/dL (7-18); CALCIUM 7.5 mg/dL (8.5-10.1); MAGNESIUM 1.9 mg/dL (1.8-2.4)
[2020-06-16 06:57] LABS: CREATININE 5.5 mg/dL (0.55-1.3)
[2020-06-16 06:58] LABS: PHOSPHOROUS 6.2 mg/dL (2.5-4.9)
[2020-06-16 06:59] LABS: BILIRUBIN,TOTAL 0.4 mg/dL (0.2-1); TOT PROT 4.6 g/dl (6.4-8.2)
[2020-06-16] MEDS: INSULIN SLIDING SCALE (NOVOLOG) 1 VIAL SQ SCH ×4 (07:11→22:00)
[2020-06-16] MEDS ORDERED: SODIUM CHLORIDE 250 ML IV PRN (09:48)
[2020-06-16] MEDS: PANTOPRAZOLE SODIUM 40 MG VIAL IVPUSH SCH ×2 (10:05→22:37)
[2020-06-16] MEDS: AMINO ACIDS/PROTEIN HYDROLYS 30 ML LIQUID.PKT PO SCH (10:05)
[2020-06-16] MEDS: MUPIROCIN 2% TOPICAL OINTMENT FOR DECOLONIZATION NS SCH ×2 (11:15→22:34)
[2020-06-16] MEDS: SEVELAMER CARBONATE 0.8 GM POWDER PACKET PO SCH ×2 (11:15→17:34)
[2020-06-16] MEDS: ALBUMIN HUMAN 25% 12.5 GM/50 ML VIAL IVPB SCH ×4 (13:50→15:20)
[2020-06-16] MEDS: NOREPINEPHRINE BITARTRATE 8,000 MCG/500 ML BAG IVPB SCH (17:35)
[2020-06-16] MEDS: CHLORHEXIDINE GLUCONATE 4% CLEANSER FOR DECOLONIZATION TP SCH (22:35)
[2020-06-17] MEDS ORDERED: MEROPENEM 1 GM VIAL (RESTRICTED TO ID) IVPB ONE ×2 (02:00→13:10)
[2020-06-17] MEDS ORDERED: DEXTROSE 5%-WATER 100 ML IVPB ONE ×2 (02:00→13:11)
[2020-06-17] MEDS: MEROPENEM 1 GM in DEXTROSE 5%-WATER 100 ML IVPB SCH ×2 (02:19→13:22)
[2020-06-17] MEDS: INSULIN SLIDING SCALE (NOVOLOG) 1 VIAL SQ SCH ×4 (06:16→22:07)
[2020-06-17 07:17] LABS: BASO % 0.5 % (0-2.0); EOS % 7.7 % (0-4.5); HEMATOCRIT 25.2 % (32.4-45.2); HEMOGLOBIN 8.4 GM/dL (10.7-15.3); LYMPH % 18.4 % (8-40); MCH 30.3 pg (25.7-33.7); MCHC 33.1 g/dl (32.0-36.0); MEAN CELL VOLUME 91.6 fl (80-96); MEAN PLT VOLUME 9.7 fl (7.5-11.1); MONO % 10.3 % (3.8-10.2); NEUT % 63.1 % (42.8-82.8); PLATELET COUNT 189 K/MM3 (134-434); RBC 2.75 M/mm3 (3.60-5.2); RDW 16.2 % (11.6-15.6); WHITE BLOOD COUNT 5.8 K/mm3 (4.0-10.0)
[2020-06-17 07:39] LABS: POTASSIUM 3.9 mmol/L (3.5-5.1)
[2020-06-17 07:59] LABS: ALBUMIN 1.7 g/dl (3.4-5.0); CALCIUM 7.7 mg/dL (8.5-10.1); MAGNESIUM 1.7 mg/dL (1.8-2.4)
[2020-06-17 08:01] LABS: PHOSPHOROUS 4.4 mg/dL (2.5-4.9)
[2020-06-17 08:03] LABS: BILIRUBIN,TOTAL 0.8 mg/dL (0.2-1); TOT PROT 4.2 g/dl (6.4-8.2)
[2020-06-17 08:05] LABS: BLOOD UREA NITROGEN 51.6 mg/dL (7-18)
[2020-06-17] MEDS ORDERED: MAGNESIUM SULF 50% (8.12 MEQ/2 ML-1 GM VIAL) IVPB ONE (08:53)
[2020-06-17 09:25] LABS: ANISOCYTOSIS 0; MACROCYTOSIS 1+; PLATELET ESTIMATE NORMAL
[2020-06-17] MEDS: AMINO ACIDS/PROTEIN HYDROLYS 30 ML LIQUID.PKT PO SCH (09:59)
[2020-06-17] MEDS: SEVELAMER CARBONATE 0.8 GM POWDER PACKET PO SCH ×3 (09:59→16:53)
[2020-06-17] MEDS: PANTOPRAZOLE SODIUM 40 MG VIAL IVPUSH SCH ×2 (09:59→21:54)
[2020-06-17 11:22] LABS: ARTERIAL BLD GAS O2 SATURATION 92.3 mmHg (95-98); ARTERIAL BLOOD GAS BASE EXCESS -2.1 mmol/L (-2-2); ARTERIAL BLOOD GAS PO2 74.2 mmHg (80-100); ARTERIAL BLOOD GAS pH 7.252 (7.350-7.450)
[2020-06-17 11:23] LABS: ALLENS TEST POSITIVE
[2020-06-17] MEDS ORDERED: FUROSEMIDE 40 MG/4 ML INJECTABLE VIAL IVPUSH ONE (15:49)
[2020-06-17] MEDS ORDERED: SODIUM CHLORIDE 250 ML IV PRN (15:51)
[2020-06-17] MEDS: HEPARIN INFUSION - 25,000 UNITS/500 ML INFUS.BAG IVPB SCH (17:46)
[2020-06-17] MEDS: NOREPINEPHRINE BITARTRATE 8,000 MCG/500 ML BAG IVPB SCH (17:51)
[2020-06-17] MEDS: CHLORHEXIDINE GLUCONATE 4% CLEANSER FOR DECOLONIZATION TP SCH (21:49)
[2020-06-18] MEDS ORDERED: DEXTROSE 5%-WATER 100 ML IVPB ONE ×2 (00:35→13:03)
[2020-06-18] MEDS ORDERED: MEROPENEM 1 GM VIAL (RESTRICTED TO ID) IVPB ONE ×2 (00:35→13:03)
[2020-06-18] MEDS: MEROPENEM 1 GM in DEXTROSE 5%-WATER 100 ML IVPB SCH ×2 (00:56→13:05)
[2020-06-18] MEDS: INSULIN SLIDING SCALE (NOVOLOG) 1 VIAL SQ SCH ×4 (07:03→23:27)
[2020-06-18 07:36] LABS: BASO % 0.3 % (0-2.0); EOS % 6.5 % (0-4.5); HEMATOCRIT 25.6 % (32.4-45.2); HEMOGLOBIN 8.7 GM/dL (10.7-15.3); MCH 30.8 pg (25.7-33.7); MCHC 33.9 g/dl (32.0-36.0); MONO % 7.4 % (3.8-10.2); NEUT % 73.8 % (42.8-82.8); PLATELET COUNT 197 K/MM3 (134-434); RBC 2.82 M/mm3 (3.60-5.2); RDW 15.9 % (11.6-15.6); WHITE BLOOD COUNT 7.3 K/mm3 (4.0-10.0)
[2020-06-18 07:39] LABS: POTASSIUM 3.7 mmol/L (3.5-5.1)
[2020-06-18 07:51] LABS: ALBUMIN 1.7 g/dl (3.4-5.0); BLOOD UREA NITROGEN 57.1 mg/dL (7-18)
[2020-06-18 07:52] LABS: CALCIUM 7.9 mg/dL (8.5-10.1); MAGNESIUM 2.3 mg/dL (1.8-2.4)
[2020-06-18 07:55] LABS: PHOSPHOROUS 4.7 mg/dL (2.5-4.9)
[2020-06-18 07:56] LABS: BILIRUBIN,TOTAL 0.4 mg/dL (0.2-1); TOT PROT 4.4 g/dl (6.4-8.2)
[2020-06-18] MEDS: AMINO ACIDS/PROTEIN HYDROLYS 30 ML LIQUID.PKT PO SCH (09:07)
[2020-06-18] MEDS: SEVELAMER CARBONATE 0.8 GM POWDER PACKET PO SCH ×3 (09:07→18:07)
[2020-06-18 09:34] LABS: ANISOCYTOSIS 1+; MACROCYTOSIS 1+; OVALOCYTE 1+; PLATELET ESTIMATE NORMAL
[2020-06-18] MEDS: PANTOPRAZOLE SODIUM 40 MG VIAL IVPUSH SCH ×2 (10:03→22:17)
[2020-06-18] MEDS: DOCUSATE NA 100 MG/10 ML UNIT-DOSE CUPS PO SCH (16:37)
[2020-06-18] MEDS: HEPARIN INFUSION - 25,000 UNITS/500 ML INFUS.BAG IVPB SCH (18:00)
[2020-06-18] MEDS: CHLORHEXIDINE GLUCONATE 4% CLEANSER FOR DECOLONIZATION TP SCH (22:11)
[2020-06-18] MEDS ORDERED: PT OWN MED DRAWER 7, Y5N ONE (22:16)
[2020-06-18] MEDS: SENNOSIDES 8.8 MG/5 ML BULK BOTTLE PO SCH (22:17)
[2020-06-19] MEDS ORDERED: DEXTROSE 5%-WATER 100 ML IVPB ONE ×3 (01:41→22:43)
[2020-06-19] MEDS ORDERED: MEROPENEM 1 GM VIAL (RESTRICTED TO ID) IVPB ONE ×3 (01:41→22:43)
[2020-06-19] MEDS: MEROPENEM 1 GM in DEXTROSE 5%-WATER 100 ML IVPB SCH ×2 (01:46→12:52)
[2020-06-19 03:07] LABS: HEP B CORE AB, TOT Negative (Negative)
[2020-06-19] MEDS: INSULIN SLIDING SCALE (NOVOLOG) 1 VIAL SQ SCH ×4 (06:16→22:40)
[2020-06-19 07:31] LABS: BASO % 0.5 % (0-2.0); EOS % 9.4 % (0-4.5); HEMATOCRIT 24.7 % (32.4-45.2); HEMOGLOBIN 8.4 GM/dL (10.7-15.3); LYMPH % 17.2 % (8-40); MEAN CELL VOLUME 91.3 fl (80-96); MONO % 9.9 % (3.8-10.2); PLATELET COUNT 198 K/MM3 (134-434); WHITE BLOOD COUNT 6.9 K/mm3 (4.0-10.0)
[2020-06-19 07:46] LABS: POTASSIUM 3.5 mmol/L (3.5-5.1)
[2020-06-19 07:48] LABS: CALCIUM 8.5 mg/dL (8.5-10.1)
[2020-06-19 07:49] LABS: MAGNESIUM 2.1 mg/dL (1.8-2.4)
[2020-06-19 07:51] LABS: ALBUMIN 1.6 g/dl (3.4-5.0)
[2020-06-19 07:52] LABS: BLOOD UREA NITROGEN 37.6 mg/dL (7-18); CREATININE 2.6 mg/dL (0.55-1.3); PHOSPHOROUS 3.4 mg/dL (2.5-4.9)
[2020-06-19 07:53] LABS: BILIRUBIN,TOTAL 0.3 mg/dL (0.2-1)
[2020-06-19 07:54] LABS: TOT PROT 4.2 g/dl (6.4-8.2)
[2020-06-19] MEDS: HEPARIN INFUSION - 25,000 UNITS/500 ML INFUS.BAG IVPB SCH ×2 (07:54→19:04)
[2020-06-19 08:58] LABS: ANISOCYTOSIS 1+
[2020-06-19] MEDS: AMINO ACIDS/PROTEIN HYDROLYS 30 ML LIQUID.PKT PO SCH (10:27)
[2020-06-19] MEDS: PANTOPRAZOLE SODIUM 40 MG VIAL IVPUSH SCH ×2 (10:27→22:45)
[2020-06-19] MEDS: DOCUSATE NA 100 MG/10 ML UNIT-DOSE CUPS PO SCH (10:28)
[2020-06-19] MEDS: SEVELAMER CARBONATE 0.8 GM POWDER PACKET PO SCH ×3 (10:28→17:30)
[2020-06-19] MEDS ORDERED: HEPARIN NA (PORCINE) 5,000 UNITS/ML 1ML VIAL IVPUSH PRN ×4 (14:01→14:04)
[2020-06-19] MEDS: CHLORHEXIDINE GLUCONATE 4% CLEANSER FOR DECOLONIZATION TP SCH (21:29)
[2020-06-19] MEDS: NOREPINEPHRINE BITARTRATE 8,000 MCG/500 ML BAG IVPB SCH (22:43)
[2020-06-19] MEDS: SENNOSIDES 8.8 MG/5 ML BULK BOTTLE PO SCH (22:45)
[2020-06-20] MEDS: MEROPENEM 1 GM in DEXTROSE 5%-WATER 100 ML IVPB SCH ×2 (02:14→14:10)
[2020-06-20] MEDS: INSULIN SLIDING SCALE (NOVOLOG) 1 VIAL SQ SCH ×4 (06:57→22:13)
[2020-06-20 07:55] LABS: POTASSIUM 3.6 mmol/L (3.5-5.1)
[2020-06-20 07:56] LABS: HEMATOCRIT 25.1 % (32.4-45.2); HEMOGLOBIN 8.2 GM/dL (10.7-15.3); MCH 30.1 pg (25.7-33.7); MCHC 32.6 g/dl (32.0-36.0); MEAN CELL VOLUME 92.3 fl (80-96); MEAN PLT VOLUME 10.6 fl (7.5-11.1); PLATELET COUNT 225 K/MM3 (134-434); RBC 2.72 M/mm3 (3.60-5.2); RDW 16.1 % (11.6-15.6); WHITE BLOOD COUNT 10.1 K/mm3 (4.0-10.0)
[2020-06-20 07:57] LABS: ALBUMIN 1.5 g/dl (3.4-5.0); BLOOD UREA NITROGEN 44.4 mg/dL (7-18); CALCIUM 8.5 mg/dL (8.5-10.1); MAGNESIUM 2.1 mg/dL (1.8-2.4)
[2020-06-20 08:00] LABS: CREATININE 2.7 mg/dL (0.55-1.3); PHOSPHOROUS 2.9 mg/dL (2.5-4.9)
[2020-06-20 08:02] LABS: BILIRUBIN,TOTAL 0.3 mg/dL (0.2-1); TOT PROT 4.1 g/dl (6.4-8.2)
[2020-06-20] MEDS: SEVELAMER CARBONATE 0.8 GM POWDER PACKET PO SCH ×3 (08:57→16:37)
[2020-06-20] MEDS: AMINO ACIDS/PROTEIN HYDROLYS 30 ML LIQUID.PKT PO SCH (08:57)
[2020-06-20] MEDS ORDERED: SODIUM CHLORIDE 250 ML IV STA ×2 (09:25→16:26)
[2020-06-20] MEDS: DOCUSATE NA 100 MG/10 ML UNIT-DOSE CUPS PO SCH (10:31)
[2020-06-20] MEDS: PANTOPRAZOLE SODIUM 40 MG VIAL IVPUSH SCH ×2 (10:32→22:13)
[2020-06-20] MEDS ORDERED: DEXTROSE 5%-WATER 100 ML IVPB ONE (10:56)
[2020-06-20] MEDS ORDERED: MEROPENEM 1 GM VIAL (RESTRICTED TO ID) IVPB ONE (10:56)
[2020-06-20] MEDS ORDERED: ACETAMINOPHEN 1000 MG/100 ML VIAL (NON FORMULARY) IVPB ONE (14:41)
[2020-06-20] MEDS: HEPARIN INFUSION - 25,000 UNITS/500 ML INFUS.BAG IVPB SCH (15:44)
[2020-06-20] MEDS: CHLORHEXIDINE GLUCONATE 4% CLEANSER FOR DECOLONIZATION TP SCH (22:13)
[2020-06-20] MEDS: SENNOSIDES 8.8 MG/5 ML BULK BOTTLE PO SCH (22:31)
[2020-06-21] MEDS ORDERED: MEROPENEM 1 GM VIAL (RESTRICTED TO ID) IVPB ONE ×2 (02:29→12:56)
[2020-06-21] MEDS ORDERED: DEXTROSE 5%-WATER 100 ML IVPB ONE ×2 (02:30→12:56)
[2020-06-21] MEDS: MEROPENEM 1 GM in DEXTROSE 5%-WATER 100 ML IVPB SCH ×2 (02:33→12:57)
[2020-06-21] MEDS: INSULIN SLIDING SCALE (NOVOLOG) 1 VIAL SQ SCH ×4 (07:19→21:33)
[2020-06-21 07:35] LABS: POTASSIUM 3.6 mmol/L (3.5-5.1)
[2020-06-21 07:36] LABS: HEMATOCRIT 25.6 % (32.4-45.2); HEMOGLOBIN 8.6 GM/dL (10.7-15.3); MCH 30.8 pg (25.7-33.7); MCHC 33.5 g/dl (32.0-36.0); MEAN CELL VOLUME 91.9 fl (80-96); PLATELET COUNT 234 K/MM3 (134-434); RBC 2.78 M/mm3 (3.60-5.2); RDW 16.3 % (11.6-15.6)
[2020-06-21 07:50] LABS: CALCIUM 8.7 mg/dL (8.5-10.1)
[2020-06-21 07:51] LABS: ALBUMIN 1.6 g/dl (3.4-5.0); BLOOD UREA NITROGEN 55.1 mg/dL (7-18); MAGNESIUM 2.1 mg/dL (1.8-2.4)
[2020-06-21 07:53] LABS: CREATININE 2.8 mg/dL (0.55-1.3)
[2020-06-21 07:54] LABS: TOT PROT 4.2 g/dl (6.4-8.2)
[2020-06-21 07:55] LABS: PHOSPHOROUS 3.1 mg/dL (2.5-4.9)
[2020-06-21] MEDS ORDERED: SODIUM CHLORIDE 250 ML IV STA (10:06)
[2020-06-21] MEDS: AMINO ACIDS/PROTEIN HYDROLYS 30 ML LIQUID.PKT PO SCH (10:28)
[2020-06-21] MEDS: PANTOPRAZOLE SODIUM 40 MG VIAL IVPUSH SCH ×2 (10:28→21:33)
[2020-06-21] MEDS: DOCUSATE NA 100 MG/10 ML UNIT-DOSE CUPS PO SCH (10:28)
[2020-06-21] MEDS: SEVELAMER CARBONATE 0.8 GM POWDER PACKET PO SCH ×3 (10:28→16:56)
[2020-06-21] MEDS: HEPARIN INFUSION - 25,000 UNITS/500 ML INFUS.BAG IVPB SCH (18:37)
[2020-06-21] MEDS: SENNOSIDES 8.8 MG/5 ML BULK BOTTLE PO SCH (21:33)
[2020-06-22] MEDS ORDERED: MEROPENEM 1 GM VIAL (RESTRICTED TO ID) IVPB ONE ×2 (00:34→12:00)
[2020-06-22] MEDS ORDERED: DEXTROSE 5%-WATER 100 ML IVPB ONE ×2 (00:35→12:00)
[2020-06-22] MEDS: MEROPENEM 1 GM in DEXTROSE 5%-WATER 100 ML IVPB SCH ×2 (01:50→13:00)
[2020-06-22 07:53] LABS: HEMATOCRIT 24.3 % (32.4-45.2); HEMOGLOBIN 8.1 GM/dL (10.7-15.3); MCH 30.7 pg (25.7-33.7); MCHC 33.2 g/dl (32.0-36.0); MEAN CELL VOLUME 92.3 fl (80-96); MEAN PLT VOLUME 9.9 fl (7.5-11.1); PLATELET COUNT 204 K/MM3 (134-434); RBC 2.63 M/mm3 (3.60-5.2); RDW 16.2 % (11.6-15.6); WHITE BLOOD COUNT 8.2 K/mm3 (4.0-10.0)
[2020-06-22] MEDS: PANTOPRAZOLE SODIUM 40 MG VIAL IVPUSH SCH ×2 (10:43→22:55)
[2020-06-22] MEDS: AMINO ACIDS/PROTEIN HYDROLYS 30 ML LIQUID.PKT PO SCH (10:43)
[2020-06-22] MEDS: DOCUSATE NA 100 MG/10 ML UNIT-DOSE CUPS PO SCH (10:43)
[2020-06-22] MEDS: SEVELAMER CARBONATE 0.8 GM POWDER PACKET PO SCH ×3 (10:43→17:17)
[2020-06-22] MEDS ORDERED: FUROSEMIDE 40 MG/4 ML INJECTABLE VIAL IVPUSH ONE (12:45)
[2020-06-22] MEDS ORDERED: ALBUMIN HUMAN 25% 100 ML VIAL IVPB ONE (13:00)
[2020-06-22] MEDS: INSULIN SLIDING SCALE (NOVOLOG) 1 VIAL SQ SCH ×3 (13:59→23:28)
[2020-06-22 14:11] LABS: POTASSIUM 3.4 mmol/L (3.5-5.1)
[2020-06-22 14:12] LABS: CALCIUM 8.4 mg/dL (8.5-10.1)
[2020-06-22 14:14] LABS: ALBUMIN 1.5 g/dl (3.4-5.0); BLOOD UREA NITROGEN 61.2 mg/dL (7-18)
[2020-06-22 14:17] LABS: CREATININE 2.9 mg/dL (0.55-1.3)
[2020-06-22 14:18] LABS: BILIRUBIN,TOTAL 0.3 mg/dL (0.2-1); TOT PROT 3.9 g/dl (6.4-8.2)
[2020-06-22] MEDS ORDERED: POTASSIUM CHLORIDE ORAL LIQUID 20 MEQ/15 ML PO ONE (14:44)
[2020-06-22] MEDS: HEPARIN INFUSION - 25,000 UNITS/500 ML INFUS.BAG IVPB SCH (15:05)
[2020-06-22] MEDS: KCL 10 MEQ IVPB 10 MEQ/100 ML INFUS.BAG IVPB SCH ×2 (15:08→17:12)
[2020-06-22] MEDS: SENNOSIDES 8.8 MG/5 ML BULK BOTTLE PO SCH (23:28)
[2020-06-23] MEDS ORDERED: MEROPENEM 1 GM VIAL (RESTRICTED TO ID) IVPB ONE ×3 (02:04→22:43)
[2020-06-23] MEDS ORDERED: DEXTROSE 5%-WATER 100 ML IVPB ONE ×3 (02:04→22:43)
[2020-06-23] MEDS: MEROPENEM 1 GM in DEXTROSE 5%-WATER 100 ML IVPB SCH ×3 (02:19→22:53)
[2020-06-23] MEDS ORDERED: HEPARIN INFUSION - 25,000 UNITS/500 ML INFUS.BAG IVPB SCH (04:00)
[2020-06-23] MEDS ORDERED: HEPARIN NA (PORCINE) 5,000 UNITS/ML 1ML VIAL IVPUSH PRN ×2 (04:00)
[2020-06-23] MEDS: CHLORHEXIDINE GLUCONATE 4% CLEANSER FOR DECOLONIZATION TP SCH (04:12)
[2020-06-23] MEDS: INSULIN SLIDING SCALE (NOVOLOG) 1 VIAL SQ SCH ×4 (06:27→23:07)
[2020-06-23 08:10] LABS: HEMATOCRIT 24.3 % (32.4-45.2); HEMOGLOBIN 7.8 GM/dL (10.7-15.3); MCH 29.8 pg (25.7-33.7); MCHC 32.1 g/dl (32.0-36.0); MEAN CELL VOLUME 93.1 fl (80-96); MEAN PLT VOLUME 10.4 fl (7.5-11.1); PLATELET COUNT 214 K/MM3 (134-434); RBC 2.62 M/mm3 (3.60-5.2); RDW 15.8 % (11.6-15.6); WHITE BLOOD COUNT 6.8 K/mm3 (4.0-10.0)
[2020-06-23 08:28] LABS: POTASSIUM 3.3 mmol/L (3.5-5.1)
[2020-06-23 08:36] LABS: ALBUMIN 1.8 g/dl (3.4-5.0); BLOOD UREA NITROGEN 61.1 mg/dL (7-18); CALCIUM 8.5 mg/dL (8.5-10.1)
[2020-06-23 08:40] LABS: CREATININE 2.9 mg/dL (0.55-1.3); PHOSPHOROUS 3.4 mg/dL (2.5-4.9)
[2020-06-23 08:41] LABS: BILIRUBIN,TOTAL 0.4 mg/dL (0.2-1); TOT PROT 4.3 g/dl (6.4-8.2)
[2020-06-23] MEDS: SEVELAMER CARBONATE 0.8 GM POWDER PACKET PO SCH ×3 (08:42→17:53)
[2020-06-23] MEDS: AMINO ACIDS/PROTEIN HYDROLYS 30 ML LIQUID.PKT PO SCH (08:43)
[2020-06-23] MEDS ORDERED: PT OWN MED DRAWER 7, Y5N ONE ×2 (10:40→22:49)
[2020-06-23] MEDS: MULTIVIT-MINERALS ORAL LIQUID PO SCH (10:45)
[2020-06-23] MEDS: DOCUSATE NA 100 MG/10 ML UNIT-DOSE CUPS PO SCH (10:45)
[2020-06-23] MEDS: PANTOPRAZOLE SODIUM 40 MG VIAL IVPUSH SCH ×2 (10:45→22:54)
[2020-06-23] MEDS ORDERED: POTASSIUM CHLORIDE TABS 20 MEQ TABLET.ER (FP) PO ONE ×2 (13:30→15:00)
[2020-06-23] MEDS ORDERED: FUROSEMIDE 40 MG TABLET (FP) PO ONE (13:30)
[2020-06-23] MEDS ORDERED: MEROPENEM 1 GM in DEXTROSE 5%-WATER 100 ML IVPB SCH (13:45)
[2020-06-23] MEDS: APIXABAN 5 MG TABLET PO SCH ×2 (14:56→22:53)
[2020-06-23] MEDS: COLLAGENASE CLOSTRIDIUM HIST. 30 GRAMS TUBE TP SCH (16:00)
[2020-06-23 19:19] LABS: RETICULOCYTES 1.79 % (0.5-1.5)
[2020-06-23] MEDS ORDERED: CHLORHEXIDINE GLUCONATE 4% CLEANSER FOR DECOLONIZATION TP SCH (22:00)
[2020-06-23] MEDS: SENNOSIDES 8.8 MG/5 ML BULK BOTTLE PO SCH (22:54)
[2020-06-24] MEDS: INSULIN SLIDING SCALE (NOVOLOG) 1 VIAL SQ SCH ×4 (06:02→22:08)
[2020-06-24 07:33] LABS: BASO % 0.9 % (0-2.0); EOS % 4.7 % (0-4.5); HEMATOCRIT 25.4 % (32.4-45.2); HEMOGLOBIN 8.2 GM/dL (10.7-15.3); MCH 29.9 pg (25.7-33.7); MCHC 32.1 g/dl (32.0-36.0); MEAN CELL VOLUME 93.1 fl (80-96); MEAN PLT VOLUME 10.4 fl (7.5-11.1); MONO % 11.9 % (3.8-10.2); NEUT % 54.5 % (42.8-82.8); PLATELET COUNT 210 K/MM3 (134-434); RBC 2.73 M/mm3 (3.60-5.2); RDW 16.2 % (11.6-15.6); WHITE BLOOD COUNT 7.8 K/mm3 (4.0-10.0)
[2020-06-24 07:42] LABS: POTASSIUM 3.6 mmol/L (3.5-5.1)
[2020-06-24 07:44] LABS: ALBUMIN 1.8 g/dl (3.4-5.0); BLOOD UREA NITROGEN 63.8 mg/dL (7-18); CALCIUM 8.3 mg/dL (8.5-10.1); MAGNESIUM 2.1 mg/dL (1.8-2.4)
[2020-06-24 07:48] LABS: CREATININE 2.9 mg/dL (0.55-1.3); PHOSPHOROUS 3.7 mg/dL (2.5-4.9)
[2020-06-24 07:49] LABS: BILIRUBIN,TOTAL 0.2 mg/dL (0.2-1); TOT PROT 4.4 g/dl (6.4-8.2)
[2020-06-24] MEDS: SEVELAMER CARBONATE 0.8 GM POWDER PACKET PO SCH ×2 (08:47→12:40)
[2020-06-24] MEDS: AMINO ACIDS/PROTEIN HYDROLYS 30 ML LIQUID.PKT PO SCH (08:47)
[2020-06-24 09:15] LABS: ANISOCYTOSIS 1+; MACROCYTOSIS 0; OVALOCYTE 1+; PLATELET ESTIMATE NORMAL; TEAR DROP CELLS 1+
[2020-06-24] MEDS ORDERED: MEROPENEM 1 GM VIAL (RESTRICTED TO ID) IVPB ONE ×2 (09:43→21:41)
[2020-06-24] MEDS ORDERED: DEXTROSE 5%-WATER 100 ML IVPB ONE ×2 (09:44→21:41)
[2020-06-24] MEDS: MEROPENEM 1 GM in DEXTROSE 5%-WATER 100 ML IVPB SCH ×2 (09:47→21:52)
[2020-06-24] MEDS: MULTIVIT-MINERALS ORAL LIQUID PO SCH (09:49)
[2020-06-24] MEDS: DOCUSATE NA 100 MG/10 ML UNIT-DOSE CUPS PO SCH (09:49)
[2020-06-24] MEDS: APIXABAN 5 MG TABLET PO SCH ×2 (09:50→21:52)
[2020-06-24] MEDS: PANTOPRAZOLE SODIUM 40 MG VIAL IVPUSH SCH ×2 (09:50→21:53)
[2020-06-24] MEDS: COLLAGENASE CLOSTRIDIUM HIST. 30 GRAMS TUBE TP SCH (09:50)
[2020-06-24] MEDS ORDERED: FUROSEMIDE 40 MG TABLET (FP) PO ONE (14:19)
[2020-06-24] MEDS ORDERED: POTASSIUM CHLORIDE TABS 20 MEQ TABLET.ER (FP) PO ONE (14:19)
[2020-06-24] MEDS ORDERED: PT OWN MED DRAWER 7, Y5N ONE (21:42)
[2020-06-24] MEDS: SENNOSIDES 8.8 MG/5 ML BULK BOTTLE PO SCH (21:53)
[2020-06-25] MEDS: INSULIN SLIDING SCALE (NOVOLOG) 1 VIAL SQ SCH ×5 (06:36→23:02)
[2020-06-25 07:48] LABS: BASO % 0.8 % (0-2.0); EOS % 4.1 % (0-4.5); HEMATOCRIT 25.5 % (32.4-45.2); HEMOGLOBIN 8.4 GM/dL (10.7-15.3); LYMPH % 30.9 % (8-40); MCH 30.4 pg (25.7-33.7); MCHC 32.9 g/dl (32.0-36.0); MEAN CELL VOLUME 92.3 fl (80-96); MEAN PLT VOLUME 9.4 fl (7.5-11.1); MONO % 11.6 % (3.8-10.2); NEUT % 52.6 % (42.8-82.8); PLATELET COUNT 218 K/MM3 (134-434); RBC 2.76 M/mm3 (3.60-5.2); RDW 16.3 % (11.6-15.6); WHITE BLOOD COUNT 6.9 K/mm3 (4.0-10.0)
[2020-06-25] MEDS ORDERED: MEROPENEM 1 GM VIAL (RESTRICTED TO ID) IVPB ONE ×2 (09:01→22:47)
[2020-06-25] MEDS ORDERED: DEXTROSE 5%-WATER 100 ML IVPB ONE ×2 (09:01→22:47)
[2020-06-25] MEDS ORDERED: PT OWN MED DRAWER 7, Y5N ONE (09:02)
[2020-06-25] MEDS: MEROPENEM 1 GM in DEXTROSE 5%-WATER 100 ML IVPB SCH ×2 (09:32→22:50)
[2020-06-25] MEDS: PANTOPRAZOLE SODIUM 40 MG VIAL IVPUSH SCH ×2 (09:33→22:50)
[2020-06-25] MEDS: DOCUSATE NA 100 MG/10 ML UNIT-DOSE CUPS PO SCH (09:34)
[2020-06-25] MEDS: MULTIVIT-MINERALS ORAL LIQUID PO SCH (09:34)
[2020-06-25] MEDS: APIXABAN 5 MG TABLET PO SCH ×2 (09:35→22:50)
[2020-06-25] MEDS: COLLAGENASE CLOSTRIDIUM HIST. 30 GRAMS TUBE TP SCH (09:44)
[2020-06-25] MEDS: AMINO ACIDS/PROTEIN HYDROLYS 30 ML LIQUID.PKT PO SCH (09:44)
[2020-06-25 10:12] LABS: ANISOCYTOSIS 1+; MACROCYTOSIS 0; PLATELET ESTIMATE NORMAL
[2020-06-25] MEDS: CHLORHEXIDINE GLUCONATE 4% CLEANSER FOR DECOLONIZATION TP SCH (11:39)
[2020-06-25 12:13] LABS: POTASSIUM 3.6 mmol/L (3.5-5.1)
[2020-06-25 12:15] LABS: ALBUMIN 1.8 g/dl (3.4-5.0); BLOOD UREA NITROGEN 61.7 mg/dL (7-18); CALCIUM 8.5 mg/dL (8.5-10.1); MAGNESIUM 2.1 mg/dL (1.8-2.4)
[2020-06-25 12:18] LABS: CREATININE 2.9 mg/dL (0.55-1.3)
[2020-06-25 12:19] LABS: PHOSPHOROUS 3.5 mg/dL (2.5-4.9)
[2020-06-25 12:20] LABS: BILIRUBIN,TOTAL 0.3 mg/dL (0.2-1); TOT PROT 4.6 g/dl (6.4-8.2)
[2020-06-25 16:20] LABS: ARTERIAL BLD GAS O2 SATURATION 73.1 mmHg (95-98); ARTERIAL BLOOD GAS BASE EXCESS 6.5 mmol/L (-2-2); ARTERIAL BLOOD GAS pH 7.415 (7.350-7.450)
[2020-06-25] MEDS: POTASSIUM CHLORIDE TABS 20 MEQ TABLET.ER (FP) PO SCH (16:21)
[2020-06-25] MEDS: FUROSEMIDE 40 MG TABLET (FP) PO SCH (16:21)
[2020-06-25 16:22] LABS: ALLENS TEST POSITIVE
[2020-06-25 16:26] LABS: ARTERIAL BLOOD GAS PO2 38.7 mmHg (80-100)
[2020-06-25 18:17] LABS: ARTERIAL BLD GAS O2 SATURATION 98.7 mmHg (95-98); ARTERIAL BLOOD GAS BASE EXCESS 5.9 mmol/L (-2-2); ARTERIAL BLOOD GAS PO2 132.3 mmHg (80-100); ARTERIAL BLOOD GAS pH 7.423 (7.350-7.450)
[2020-06-25 18:18] LABS: ALLENS TEST POSITIVE
[2020-06-25] MEDS: SENNOSIDES 8.8 MG/5 ML BULK BOTTLE PO SCH (22:51)
[2020-06-26] MEDS: INSULIN SLIDING SCALE (NOVOLOG) 1 VIAL SQ SCH ×4 (07:29→21:12)
[2020-06-26] MEDS ORDERED: DEXTROSE 5%-WATER 100 ML IVPB ONE ×2 (08:42→21:04)
[2020-06-26] MEDS ORDERED: MEROPENEM 1 GM VIAL (RESTRICTED TO ID) IVPB ONE ×2 (08:42→21:04)
[2020-06-26] MEDS ORDERED: PT OWN MED DRAWER 7, Y5N ONE ×3 (08:43→21:05)
[2020-06-26] MEDS: DOCUSATE NA 100 MG/10 ML UNIT-DOSE CUPS PO SCH (09:00)
[2020-06-26] MEDS: PANTOPRAZOLE SODIUM 40 MG VIAL IVPUSH SCH ×2 (09:01→21:17)
[2020-06-26] MEDS: APIXABAN 5 MG TABLET PO SCH ×2 (09:01→21:16)
[2020-06-26] MEDS: FUROSEMIDE 40 MG TABLET (FP) PO SCH (09:01)
[2020-06-26] MEDS: COLLAGENASE CLOSTRIDIUM HIST. 30 GRAMS TUBE TP SCH (09:01)
[2020-06-26] MEDS: POTASSIUM CHLORIDE TABS 20 MEQ TABLET.ER (FP) PO SCH (09:01)
[2020-06-26] MEDS: MEROPENEM 1 GM in DEXTROSE 5%-WATER 100 ML IVPB SCH ×2 (09:01→21:14)
[2020-06-26] MEDS: MULTIVIT-MINERALS ORAL LIQUID PO SCH (10:51)
[2020-06-26] MEDS: AMINO ACIDS/PROTEIN HYDROLYS 30 ML LIQUID.PKT PO SCH (10:59)
[2020-06-26] MEDS ORDERED: FUROSEMIDE 40 MG TABLET (FP) PO ONE (14:37)
[2020-06-26] MEDS: SENNOSIDES 8.8 MG/5 ML BULK BOTTLE PO SCH (21:16)
[2020-06-27] MEDS: INSULIN SLIDING SCALE (NOVOLOG) 1 VIAL SQ SCH ×4 (06:56→22:00)
[2020-06-27] MEDS ORDERED: MEROPENEM 1 GM VIAL (RESTRICTED TO ID) IVPB ONE ×3 (08:53→21:55)
[2020-06-27] MEDS ORDERED: DEXTROSE 5%-WATER 100 ML IVPB ONE ×3 (08:53→21:55)
[2020-06-27] MEDS: MEROPENEM 1 GM in DEXTROSE 5%-WATER 100 ML IVPB SCH ×2 (09:49→21:57)
[2020-06-27] MEDS: AMINO ACIDS/PROTEIN HYDROLYS 30 ML LIQUID.PKT PO SCH (09:49)
[2020-06-27] MEDS: APIXABAN 5 MG TABLET PO SCH ×2 (09:49→21:57)
[2020-06-27] MEDS: DOCUSATE NA 100 MG/10 ML UNIT-DOSE CUPS PO SCH (09:49)
[2020-06-27] MEDS: COLLAGENASE CLOSTRIDIUM HIST. 30 GRAMS TUBE TP SCH (09:50)
[2020-06-27] MEDS: amLODIPine BESYLATE 5 MG TABLET (FP) PO SCH (09:50)
[2020-06-27] MEDS: PANTOPRAZOLE SODIUM 40 MG VIAL IVPUSH SCH ×2 (09:50→21:58)
[2020-06-27] MEDS ORDERED: CARVEDILOL 6.25 MG TABLET (FP) PO SCH (10:00)
[2020-06-27] MEDS ORDERED: PT OWN MED DRAWER 7, Y5N ONE ×2 (12:25→21:59)
[2020-06-27] MEDS: MULTIVIT-MINERALS ORAL LIQUID PO SCH (12:29)
[2020-06-27] MEDS: SENNOSIDES 8.8 MG/5 ML BULK BOTTLE PO SCH (21:59)
[2020-06-28] MEDS: INSULIN SLIDING SCALE (NOVOLOG) 1 VIAL SQ SCH ×4 (06:47→21:32)
[2020-06-28 08:04] LABS: BASO % 1.4 % (0-2.0); EOS % 6.9 % (0-4.5); HEMATOCRIT 24.4 % (32.4-45.2); LYMPH % 38.7 % (8-40); MCH 30.3 pg (25.7-33.7); MCHC 32.9 g/dl (32.0-36.0); MEAN CELL VOLUME 92.2 fl (80-96); MEAN PLT VOLUME 9.5 fl (7.5-11.1); MONO % 9.8 % (3.8-10.2); NEUT % 43.2 % (42.8-82.8); PLATELET COUNT 200 K/MM3 (134-434); RBC 2.65 M/mm3 (3.60-5.2); RDW 16.5 % (11.6-15.6); WHITE BLOOD COUNT 6.7 K/mm3 (4.0-10.0)
[2020-06-28 08:40] LABS: ALBUMIN 1.8 g/dl (3.4-5.0); BILIRUBIN,TOTAL 0.5 mg/dL (0.2-1); BLOOD UREA NITROGEN 61.4 mg/dL (7-18); CALCIUM 8.2 mg/dL (8.5-10.1); CREATININE 2.5 mg/dL (0.55-1.3); PHOSPHOROUS 3.4 mg/dL (2.5-4.9); POTASSIUM 4.3 mmol/L (3.5-5.1); TOT PROT 4.6 g/dl (6.4-8.2)
[2020-06-28] MEDS ORDERED: MEROPENEM 1 GM VIAL (RESTRICTED TO ID) IVPB ONE ×2 (09:24→21:08)
[2020-06-28] MEDS ORDERED: DEXTROSE 5%-WATER 100 ML IVPB ONE ×2 (09:24→21:08)
[2020-06-28] MEDS ORDERED: PT OWN MED DRAWER 7, Y5N ONE ×2 (09:24→21:09)
[2020-06-28 09:28] LABS: ANISOCYTOSIS 0; HELMET CELLS 0; HOWELL-JOLLY BODIES 0; MACROCYTOSIS 0; OVALOCYTE 0; PLATELET ESTIMATE NORMAL; ROULEAU 0; SICKELED CELLS 0; TARGET CELLS 0; TEAR DROP CELLS 0; TOXIC GRANULATION 0
[2020-06-28] MEDS: amLODIPine BESYLATE 5 MG TABLET (FP) PO SCH (10:03)
[2020-06-28] MEDS: APIXABAN 5 MG TABLET PO SCH ×2 (10:03→21:18)
[2020-06-28] MEDS: DOCUSATE NA 100 MG/10 ML UNIT-DOSE CUPS PO SCH (10:03)
[2020-06-28] MEDS: VITAMIN B COMP W-C 1 EA TABLET (NEPHRO-VITE) PO SCH (10:03)
[2020-06-28] MEDS: AMINO ACIDS/PROTEIN HYDROLYS 30 ML LIQUID.PKT PO SCH (10:05)
[2020-06-28] MEDS: PANTOPRAZOLE SODIUM 40 MG VIAL IVPUSH SCH ×2 (10:05→21:18)
[2020-06-28] MEDS: MEROPENEM 1 GM in DEXTROSE 5%-WATER 100 ML IVPB SCH ×2 (10:05→21:18)
[2020-06-28] MEDS: MULTIVIT-MINERALS ORAL LIQUID PO SCH (10:06)
[2020-06-28] MEDS: COLLAGENASE CLOSTRIDIUM HIST. 30 GRAMS TUBE TP SCH ×2 (10:07→12:15)
[2020-06-28] MEDS: SENNOSIDES 8.8 MG/5 ML BULK BOTTLE PO SCH (21:19)
[2020-06-29] MEDS: INSULIN SLIDING SCALE (NOVOLOG) 1 VIAL SQ SCH ×4 (06:43→22:08)
[2020-06-29 08:17] LABS: BASO % 1.4 % (0-2.0); EOS % 9.5 % (0-4.5); HEMATOCRIT 25.3 % (32.4-45.2); HEMOGLOBIN 8.3 GM/dL (10.7-15.3); LYMPH % 37.3 % (8-40); MCH 30.4 pg (25.7-33.7); MCHC 32.9 g/dl (32.0-36.0); MEAN CELL VOLUME 92.5 fl (80-96); MEAN PLT VOLUME 9.4 fl (7.5-11.1); NEUT % 42.8 % (42.8-82.8); PLATELET COUNT 215 K/MM3 (134-434); RBC 2.74 M/mm3 (3.60-5.2); RDW 16.3 % (11.6-15.6); WHITE BLOOD COUNT 7.1 K/mm3 (4.0-10.0)
[2020-06-29 08:31] LABS: CALCIUM 8.4 mg/dL (8.5-10.1)
[2020-06-29 08:32] LABS: BLOOD UREA NITROGEN 58.7 mg/dL (7-18); MAGNESIUM 2.1 mg/dL (1.8-2.4)
[2020-06-29 08:35] LABS: CREATININE 2.4 mg/dL (0.55-1.3); PHOSPHOROUS 3.4 mg/dL (2.5-4.9)
[2020-06-29 08:37] LABS: BILIRUBIN,TOTAL 0.3 mg/dL (0.2-1); POTASSIUM 4.2 mmol/L (3.5-5.1); TOT PROT 5.1 g/dl (6.4-8.2)
[2020-06-29] MEDS ORDERED: MEROPENEM 1 GM VIAL (RESTRICTED TO ID) IVPB ONE ×2 (10:07→21:30)
[2020-06-29] MEDS ORDERED: DEXTROSE 5%-WATER 100 ML IVPB ONE ×2 (10:07→21:31)
[2020-06-29] MEDS ORDERED: PT OWN MED DRAWER 7, Y5N ONE (10:08)
[2020-06-29] MEDS: MEROPENEM 1 GM in DEXTROSE 5%-WATER 100 ML IVPB SCH ×2 (10:14→22:08)
[2020-06-29] MEDS: amLODIPine BESYLATE 5 MG TABLET (FP) PO SCH (10:14)
[2020-06-29] MEDS: APIXABAN 5 MG TABLET PO SCH ×2 (10:14→22:08)
[2020-06-29] MEDS: DOCUSATE NA 100 MG/10 ML UNIT-DOSE CUPS PO SCH (10:14)
[2020-06-29] MEDS: AMINO ACIDS/PROTEIN HYDROLYS 30 ML LIQUID.PKT PO SCH (10:14)
[2020-06-29] MEDS: VITAMIN B COMP W-C 1 EA TABLET (NEPHRO-VITE) PO SCH (10:14)
[2020-06-29] MEDS: MULTIVIT-MINERALS ORAL LIQUID PO SCH (10:15)
[2020-06-29] MEDS: PANTOPRAZOLE SODIUM 40 MG VIAL IVPUSH SCH ×2 (10:15→22:08)
[2020-06-29] MEDS: COLLAGENASE CLOSTRIDIUM HIST. 30 GRAMS TUBE TP SCH (10:16)
[2020-06-29] MEDS: CARVEDILOL 6.25 MG TABLET (FP) PO SCH (22:08)
[2020-06-29] MEDS: SENNOSIDES 8.8 MG/5 ML BULK BOTTLE PO SCH (22:09)
[2020-06-30] MEDS: INSULIN SLIDING SCALE (NOVOLOG) 1 VIAL SQ SCH ×4 (06:22→21:26)
[2020-06-30 08:24] LABS: BASO % 1.1 % (0-2.0); EOS % 9.8 % (0-4.5); HEMATOCRIT 22.8 % (32.4-45.2); HEMOGLOBIN 7.6 GM/dL (10.7-15.3); LYMPH % 35.1 % (8-40); MCH 30.8 pg (25.7-33.7); MCHC 33.2 g/dl (32.0-36.0); MEAN CELL VOLUME 92.6 fl (80-96); MEAN PLT VOLUME 9.8 fl (7.5-11.1); MONO % 7.7 % (3.8-10.2); NEUT % 46.3 % (42.8-82.8); PLATELET COUNT 194 K/MM3 (134-434); RBC 2.46 M/mm3 (3.60-5.2); RDW 16.3 % (11.6-15.6); WHITE BLOOD COUNT 8.1 K/mm3 (4.0-10.0)
[2020-06-30 08:55] LABS: POTASSIUM 4.3 mmol/L (3.5-5.1)
[2020-06-30 09:02] LABS: ALBUMIN 1.8 g/dl (3.4-5.0); CALCIUM 8.2 mg/dL (8.5-10.1)
[2020-06-30 09:03] LABS: MAGNESIUM 2.1 mg/dL (1.8-2.4)
[2020-06-30 09:05] LABS: CREATININE 2.2 mg/dL (0.55-1.3); PHOSPHOROUS 3.3 mg/dL (2.5-4.9)
[2020-06-30 09:07] LABS: BILIRUBIN,TOTAL 0.8 mg/dL (0.2-1); TOT PROT 4.5 g/dl (6.4-8.2)
[2020-06-30] MEDS ORDERED: DEXTROSE 5%-WATER 100 ML IVPB ONE (09:35)
[2020-06-30] MEDS ORDERED: MEROPENEM 1 GM VIAL (RESTRICTED TO ID) IVPB ONE (09:35)
[2020-06-30] MEDS ORDERED: PT OWN MED DRAWER 7, Y5N ONE ×2 (09:40→21:07)
[2020-06-30] MEDS: DOCUSATE NA 100 MG/10 ML UNIT-DOSE CUPS PO SCH (09:46)
[2020-06-30] MEDS: AMINO ACIDS/PROTEIN HYDROLYS 30 ML LIQUID.PKT PO SCH (09:46)
[2020-06-30] MEDS: MULTIVIT-MINERALS ORAL LIQUID PO SCH (09:46)
[2020-06-30] MEDS: APIXABAN 5 MG TABLET PO SCH (09:47)
[2020-06-30] MEDS: CARVEDILOL 6.25 MG TABLET (FP) PO SCH ×2 (09:47→21:25)
[2020-06-30] MEDS: MEROPENEM 1 GM in DEXTROSE 5%-WATER 100 ML IVPB SCH (09:47)
[2020-06-30] MEDS: PANTOPRAZOLE SODIUM 40 MG VIAL IVPUSH SCH ×2 (09:47→21:26)
[2020-06-30] MEDS: VITAMIN B COMP W-C 1 EA TABLET (NEPHRO-VITE) PO SCH (09:47)
[2020-06-30] MEDS: amLODIPine BESYLATE 5 MG TABLET (FP) PO SCH (09:47)
[2020-06-30] MEDS: COLLAGENASE CLOSTRIDIUM HIST. 30 GRAMS TUBE TP SCH (10:00)
[2020-06-30 20:34] LABS: BASO % 1.3 % (0-2.0); EOS % 11.4 % (0-4.5); HEMATOCRIT 23.2 % (32.4-45.2); HEMOGLOBIN 7.5 GM/dL (10.7-15.3); MCH 30.2 pg (25.7-33.7); MCHC 32.3 g/dl (32.0-36.0); MEAN CELL VOLUME 93.5 fl (80-96); MEAN PLT VOLUME 9.9 fl (7.5-11.1); NEUT % 47.3 % (42.8-82.8); PLATELET COUNT 200 K/MM3 (134-434); RBC 2.48 M/mm3 (3.60-5.2); RDW 16.5 % (11.6-15.6); WHITE BLOOD COUNT 8.7 K/mm3 (4.0-10.0)
[2020-06-30] MEDS: APIXABAN 2.5 MG TABLET PO SCH (21:25)
[2020-06-30] MEDS: SENNOSIDES 8.8 MG/5 ML BULK BOTTLE PO SCH (21:26)
[2020-07-01] MEDS: INSULIN SLIDING SCALE (NOVOLOG) 1 VIAL SQ SCH ×4 (06:53→22:12)
[2020-07-01 09:33] LABS: EOS % 12.5 % (0-4.5); HEMOGLOBIN 9.4 GM/dL (10.7-15.3); LYMPH % 29.8 % (8-40); MCH 30.7 pg (25.7-33.7); MCHC 33.7 g/dl (32.0-36.0); MEAN CELL VOLUME 91.1 fl (80-96); MEAN PLT VOLUME 9.6 fl (7.5-11.1); MONO % 7.6 % (3.8-10.2); NEUT % 49.1 % (42.8-82.8); PLATELET COUNT 210 K/MM3 (134-434); RBC 3.08 M/mm3 (3.60-5.2); RDW 16.2 % (11.6-15.6); WHITE BLOOD COUNT 10.1 K/mm3 (4.0-10.0)
[2020-07-01 09:48] LABS: POTASSIUM 4.4 mmol/L (3.5-5.1)
[2020-07-01] MEDS: MULTIVIT-MINERALS ORAL LIQUID PO SCH (09:50)
[2020-07-01] MEDS: AMINO ACIDS/PROTEIN HYDROLYS 30 ML LIQUID.PKT PO SCH (09:50)
[2020-07-01] MEDS ORDERED: PT OWN MED DRAWER 7, Y5N ONE ×3 (09:54→22:07)
[2020-07-01] MEDS: VITAMIN B COMP W-C 1 EA TABLET (NEPHRO-VITE) PO SCH (10:14)
[2020-07-01] MEDS: PANTOPRAZOLE SODIUM 40 MG VIAL IVPUSH SCH ×2 (10:14→22:06)
[2020-07-01] MEDS: COLLAGENASE CLOSTRIDIUM HIST. 30 GRAMS TUBE TP SCH (10:14)
[2020-07-01] MEDS: APIXABAN 2.5 MG TABLET PO SCH ×2 (10:14→22:06)
[2020-07-01] MEDS: amLODIPine BESYLATE 5 MG TABLET (FP) PO SCH (10:14)
[2020-07-01] MEDS: DOCUSATE NA 100 MG/10 ML UNIT-DOSE CUPS PO SCH (10:14)
[2020-07-01] MEDS: CARVEDILOL 6.25 MG TABLET (FP) PO SCH ×2 (10:14→22:07)
[2020-07-01 10:40] LABS: BLOOD UREA NITROGEN 53.1 mg/dL (7-18); CALCIUM 8.4 mg/dL (8.5-10.1)
[2020-07-01 10:41] LABS: ALBUMIN 1.8 g/dl (3.4-5.0)
[2020-07-01 10:43] LABS: CREATININE 2.2 mg/dL (0.55-1.3)
[2020-07-01 10:44] LABS: PHOSPHOROUS 3.4 mg/dL (2.5-4.9)
[2020-07-01 10:45] LABS: BILIRUBIN,TOTAL 0.8 mg/dL (0.2-1); TOT PROT 4.9 g/dl (6.4-8.2)
[2020-07-01] MEDS ORDERED: ACETAMINOPHEN 1000 MG/100 ML VIAL (NON FORMULARY) IVPB ONE (16:36)
[2020-07-01] MEDS ORDERED: FUROSEMIDE 40 MG TABLET (FP) PO ONE (16:57)
[2020-07-01] MEDS: SENNOSIDES 8.8 MG/5 ML BULK BOTTLE PO SCH (22:06)
[2020-07-02] MEDS: INSULIN SLIDING SCALE (NOVOLOG) 1 VIAL SQ SCH ×4 (06:26→22:30)
[2020-07-02 07:59] LABS: BASO % 1.2 % (0-2.0); EOS % 16.3 % (0-4.5); HEMATOCRIT 29.3 % (32.4-45.2); HEMOGLOBIN 9.9 GM/dL (10.7-15.3); MCH 30.6 pg (25.7-33.7); MCHC 33.7 g/dl (32.0-36.0); MEAN CELL VOLUME 90.9 fl (80-96); MEAN PLT VOLUME 9.7 fl (7.5-11.1); NEUT % 44.5 % (42.8-82.8); PLATELET COUNT 220 K/MM3 (134-434); RBC 3.22 M/mm3 (3.60-5.2); RDW 16.6 % (11.6-15.6); WHITE BLOOD COUNT 9.8 K/mm3 (4.0-10.0)
[2020-07-02 08:26] LABS: POTASSIUM 4.2 mmol/L (3.5-5.1)
[2020-07-02 08:29] LABS: CALCIUM 8.5 mg/dL (8.5-10.1)
[2020-07-02 08:30] LABS: BLOOD UREA NITROGEN 57.9 mg/dL (7-18); MAGNESIUM 2.1 mg/dL (1.8-2.4)
[2020-07-02 08:32] LABS: CREATININE 2.3 mg/dL (0.55-1.3)
[2020-07-02 08:33] LABS: PHOSPHOROUS 3.6 mg/dL (2.5-4.9)
[2020-07-02 08:34] LABS: TOT PROT 5.1 g/dl (6.4-8.2)
[2020-07-02 08:39] LABS: BILIRUBIN,TOTAL 0.5 mg/dL (0.2-1)
[2020-07-02] MEDS ORDERED: PT OWN MED DRAWER 7, Y5N ONE ×2 (09:00→09:53)
[2020-07-02] MEDS: MULTIVIT-MINERALS ORAL LIQUID PO SCH (09:53)
[2020-07-02] MEDS: VITAMIN B COMP W-C 1 EA TABLET (NEPHRO-VITE) PO SCH (09:53)
[2020-07-02] MEDS: DOCUSATE NA 100 MG/10 ML UNIT-DOSE CUPS PO SCH (09:53)
[2020-07-02] MEDS: amLODIPine BESYLATE 5 MG TABLET (FP) PO SCH (09:54)
[2020-07-02] MEDS: CARVEDILOL 6.25 MG TABLET (FP) PO SCH ×2 (09:54→22:30)
[2020-07-02] MEDS: APIXABAN 2.5 MG TABLET PO SCH ×2 (09:54→22:30)
[2020-07-02] MEDS: AMINO ACIDS/PROTEIN HYDROLYS 30 ML LIQUID.PKT PO SCH (09:54)
[2020-07-02] MEDS: COLLAGENASE CLOSTRIDIUM HIST. 30 GRAMS TUBE TP SCH (09:56)
[2020-07-02] MEDS: PANTOPRAZOLE SODIUM 40 MG VIAL IVPUSH SCH ×2 (09:56→22:30)
[2020-07-02] MEDS: SENNOSIDES 8.8 MG/5 ML BULK BOTTLE PO SCH (22:30)
[2020-07-03] MEDS: INSULIN SLIDING SCALE (NOVOLOG) 1 VIAL SQ SCH ×4 (06:13→22:16)
[2020-07-03 09:07] LABS: HEMATOCRIT 28.1 % (32.4-45.2); HEMOGLOBIN 9.3 GM/dL (10.7-15.3); MCH 30.4 pg (25.7-33.7); MCHC 32.9 g/dl (32.0-36.0); MEAN CELL VOLUME 92.3 fl (80-96); MEAN PLT VOLUME 10.3 fl (7.5-11.1); PLATELET COUNT 214 K/MM3 (134-434); RBC 3.05 M/mm3 (3.60-5.2); RDW 16.4 % (11.6-15.6); WHITE BLOOD COUNT 8.7 K/mm3 (4.0-10.0)
[2020-07-03] MEDS: MULTIVIT-MINERALS ORAL LIQUID PO SCH (09:15)
[2020-07-03] MEDS: APIXABAN 2.5 MG TABLET PO SCH ×2 (09:15→22:16)
[2020-07-03] MEDS: DOCUSATE NA 100 MG/10 ML UNIT-DOSE CUPS PO SCH (09:15)
[2020-07-03] MEDS: AMINO ACIDS/PROTEIN HYDROLYS 30 ML LIQUID.PKT PO SCH (09:15)
[2020-07-03] MEDS: CARVEDILOL 6.25 MG TABLET (FP) PO SCH ×2 (09:15→22:16)
[2020-07-03] MEDS: amLODIPine BESYLATE 5 MG TABLET (FP) PO SCH (09:15)
[2020-07-03] MEDS: PANTOPRAZOLE SODIUM 40 MG VIAL IVPUSH SCH ×2 (09:15→22:17)
[2020-07-03] MEDS: COLLAGENASE CLOSTRIDIUM HIST. 30 GRAMS TUBE TP SCH (09:16)
[2020-07-03 09:32] LABS: POTASSIUM 4.5 mmol/L (3.5-5.1)
[2020-07-03 09:39] LABS: BLOOD UREA NITROGEN 59.2 mg/dL (7-18)
[2020-07-03 09:40] LABS: CALCIUM 8.7 mg/dL (8.5-10.1)
[2020-07-03 09:42] LABS: CREATININE 2.4 mg/dL (0.55-1.3)
[2020-07-03] MEDS ORDERED: PT OWN MED DRAWER 7, Y5N ONE (09:43)
[2020-07-03] MEDS: SENNOSIDES 8.8 MG/5 ML BULK BOTTLE PO SCH (22:17)
[2020-07-04] MEDS: INSULIN SLIDING SCALE (NOVOLOG) 1 VIAL SQ SCH ×4 (06:27→21:47)
[2020-07-04] MEDS ORDERED: PT OWN MED DRAWER 7, Y5N ONE ×2 (10:10→21:39)
[2020-07-04] MEDS: CARVEDILOL 6.25 MG TABLET (FP) PO SCH ×2 (10:20→21:45)
[2020-07-04] MEDS: APIXABAN 2.5 MG TABLET PO SCH ×2 (10:20→21:45)
[2020-07-04] MEDS: AMINO ACIDS/PROTEIN HYDROLYS 30 ML LIQUID.PKT PO SCH (10:20)
[2020-07-04] MEDS: amLODIPine BESYLATE 5 MG TABLET (FP) PO SCH (10:20)
[2020-07-04] MEDS: PANTOPRAZOLE SODIUM 40 MG VIAL IVPUSH SCH ×2 (10:21→21:47)
[2020-07-04] MEDS: DOCUSATE NA 100 MG/10 ML UNIT-DOSE CUPS PO SCH (10:21)
[2020-07-04] MEDS: MULTIVIT-MINERALS ORAL LIQUID PO SCH (10:21)
[2020-07-04] MEDS: COLLAGENASE CLOSTRIDIUM HIST. 30 GRAMS TUBE TP SCH (10:23)
[2020-07-04] MEDS: SENNOSIDES 8.8 MG/5 ML BULK BOTTLE PO SCH (21:47)
[2020-07-05] MEDS: INSULIN SLIDING SCALE (NOVOLOG) 1 VIAL SQ SCH ×4 (06:31→22:26)
[2020-07-05] MEDS ORDERED: PT OWN MED DRAWER 7, Y5N ONE ×2 (10:08→22:10)
[2020-07-05] MEDS: amLODIPine BESYLATE 5 MG TABLET (FP) PO SCH (10:13)
[2020-07-05] MEDS: DOCUSATE NA 100 MG/10 ML UNIT-DOSE CUPS PO SCH (10:13)
[2020-07-05] MEDS: AMINO ACIDS/PROTEIN HYDROLYS 30 ML LIQUID.PKT PO SCH (10:13)
[2020-07-05] MEDS: CARVEDILOL 6.25 MG TABLET (FP) PO SCH ×2 (10:13→22:22)
[2020-07-05] MEDS: APIXABAN 2.5 MG TABLET PO SCH ×2 (10:13→22:22)
[2020-07-05] MEDS: MULTIVIT-MINERALS ORAL LIQUID PO SCH (10:14)
[2020-07-05] MEDS: PANTOPRAZOLE SODIUM 40 MG VIAL IVPUSH SCH ×2 (10:14→22:22)
[2020-07-05] MEDS: COLLAGENASE CLOSTRIDIUM HIST. 30 GRAMS TUBE TP SCH (10:15)
[2020-07-05] MEDS: SENNOSIDES 8.8 MG/5 ML BULK BOTTLE PO SCH (22:22)
[2020-07-06] MEDS: INSULIN SLIDING SCALE (NOVOLOG) 1 VIAL SQ SCH ×4 (06:46→21:53)
[2020-07-06 06:58] LABS: BASO % 1.1 % (0-2.0); HEMATOCRIT 28.4 % (32.4-45.2); HEMOGLOBIN 9.4 GM/dL (10.7-15.3); MCH 30.6 pg (25.7-33.7); MCHC 33.2 g/dl (32.0-36.0); MEAN PLT VOLUME 9.7 fl (7.5-11.1); MONO % 6.9 % (3.8-10.2); PLATELET COUNT 260 K/MM3 (134-434); RBC 3.08 M/mm3 (3.60-5.2); RDW 16.2 % (11.6-15.6); WHITE BLOOD COUNT 7.4 K/mm3 (4.0-10.0)
[2020-07-06 07:46] LABS: POTASSIUM 4.1 mmol/L (3.5-5.1)
[2020-07-06 08:10] LABS: ALBUMIN 2.1 g/dl (3.4-5.0); BLOOD UREA NITROGEN 46.5 mg/dL (7-18); CALCIUM 8.6 mg/dL (8.5-10.1)
[2020-07-06 08:13] LABS: BILIRUBIN,TOTAL 0.4 mg/dL (0.2-1); CREATININE 2.2 mg/dL (0.55-1.3); TOT PROT 5.2 g/dl (6.4-8.2)
[2020-07-06] MEDS ORDERED: PT OWN MED DRAWER 7, Y5N ONE ×3 (09:25→22:39)
[2020-07-06] MEDS: PANTOPRAZOLE SODIUM 40 MG VIAL IVPUSH SCH ×2 (09:59→21:41)
[2020-07-06] MEDS: MULTIVIT-MINERALS ORAL LIQUID PO SCH (10:00)
[2020-07-06] MEDS: COLLAGENASE CLOSTRIDIUM HIST. 30 GRAMS TUBE TP SCH (10:01)
[2020-07-06] MEDS: APIXABAN 2.5 MG TABLET PO SCH ×2 (10:01→21:41)
[2020-07-06] MEDS: DOCUSATE NA 100 MG/10 ML UNIT-DOSE CUPS PO SCH (10:01)
[2020-07-06] MEDS: amLODIPine BESYLATE 5 MG TABLET (FP) PO SCH (10:01)
[2020-07-06] MEDS: CARVEDILOL 6.25 MG TABLET (FP) PO SCH ×2 (10:01→21:41)
[2020-07-06] MEDS: AMINO ACIDS/PROTEIN HYDROLYS 30 ML LIQUID.PKT PO SCH (10:01)
[2020-07-06] MEDS ORDERED: FUROSEMIDE 40 MG TABLET (FP) PO ONE (16:25)
[2020-07-06] MEDS: SENNOSIDES 8.8 MG/5 ML BULK BOTTLE PO SCH (21:42)
[2020-07-07] MEDS: INSULIN (LEVEMIR) 100 UNITS/ML UNITS SQ SCH (06:10)
[2020-07-07] MEDS: INSULIN SLIDING SCALE (NOVOLOG) 1 VIAL SQ SCH ×4 (06:10→22:20)
[2020-07-07] MEDS: AMINO ACIDS/PROTEIN HYDROLYS 30 ML LIQUID.PKT PO SCH (07:46)
[2020-07-07] MEDS ORDERED: PT OWN MED DRAWER 7, Y5N ONE (10:06)
[2020-07-07] MEDS: DOCUSATE NA 100 MG/10 ML UNIT-DOSE CUPS PO SCH (10:54)
[2020-07-07] MEDS: APIXABAN 2.5 MG TABLET PO SCH ×2 (10:55→22:15)
[2020-07-07] MEDS: CARVEDILOL 6.25 MG TABLET (FP) PO SCH ×2 (10:55→22:15)
[2020-07-07] MEDS: MULTIVIT-MINERALS ORAL LIQUID PO SCH (10:55)
[2020-07-07] MEDS: amLODIPine BESYLATE 5 MG TABLET (FP) PO SCH (10:55)
[2020-07-07] MEDS: PANTOPRAZOLE SODIUM 40 MG VIAL IVPUSH SCH ×2 (10:56→22:15)
[2020-07-07] MEDS: COLLAGENASE CLOSTRIDIUM HIST. 30 GRAMS TUBE TP SCH (10:56)
[2020-07-07] MEDS: FUROSEMIDE 40 MG TABLET (FP) PO SCH (14:22)
[2020-07-07] MEDS: SENNOSIDES 8.8 MG/5 ML BULK BOTTLE PO SCH (22:15)
[2020-07-08] MEDS: INSULIN (LEVEMIR) 100 UNITS/ML UNITS SQ SCH (06:33)
[2020-07-08] MEDS: INSULIN SLIDING SCALE (NOVOLOG) 1 VIAL SQ SCH ×4 (06:36→21:38)
[2020-07-08 07:38] LABS: BASO % 0.8 % (0-2.0); EOS % 8.2 % (0-4.5); HEMATOCRIT 30.4 % (32.4-45.2); HEMOGLOBIN 9.9 GM/dL (10.7-15.3); LYMPH % 44.2 % (8-40); MCH 30.3 pg (25.7-33.7); MCHC 32.6 g/dl (32.0-36.0); MEAN CELL VOLUME 92.9 fl (80-96); MEAN PLT VOLUME 9.9 fl (7.5-11.1); NEUT % 38.8 % (42.8-82.8); PLATELET COUNT 288 K/MM3 (134-434); RBC 3.27 M/mm3 (3.60-5.2); RDW 16.6 % (11.6-15.6); WHITE BLOOD COUNT 7.8 K/mm3 (4.0-10.0)
[2020-07-08 07:57] LABS: POTASSIUM 4.2 mmol/L (3.5-5.1)
[2020-07-08 07:59] LABS: CALCIUM 8.4 mg/dL (8.5-10.1)
[2020-07-08 08:00] LABS: ALBUMIN 2.2 g/dl (3.4-5.0); BLOOD UREA NITROGEN 44.6 mg/dL (7-18); MAGNESIUM 1.8 mg/dL (1.8-2.4)
[2020-07-08 08:03] LABS: CREATININE 2.2 mg/dL (0.55-1.3); PHOSPHOROUS 3.3 mg/dL (2.5-4.9)
[2020-07-08 08:04] LABS: BILIRUBIN,TOTAL 0.4 mg/dL (0.2-1)
[2020-07-08 08:05] LABS: TOT PROT 5.5 g/dl (6.4-8.2)
[2020-07-08] MEDS: AMINO ACIDS/PROTEIN HYDROLYS 30 ML LIQUID.PKT PO SCH (11:19)
[2020-07-08] MEDS: MULTIVIT-MINERALS ORAL LIQUID PO SCH (11:19)
[2020-07-08] MEDS: APIXABAN 2.5 MG TABLET PO SCH ×2 (11:20→21:37)
[2020-07-08] MEDS: FUROSEMIDE 40 MG TABLET (FP) PO SCH (11:20)
[2020-07-08] MEDS: amLODIPine BESYLATE 5 MG TABLET (FP) PO SCH (11:20)
[2020-07-08] MEDS: CARVEDILOL 6.25 MG TABLET (FP) PO SCH ×2 (11:20→21:37)
[2020-07-08] MEDS: DOCUSATE NA 100 MG/10 ML UNIT-DOSE CUPS PO SCH (11:20)
[2020-07-08] MEDS: PANTOPRAZOLE SODIUM 40 MG VIAL IVPUSH SCH (11:20)
[2020-07-08] MEDS: COLLAGENASE CLOSTRIDIUM HIST. 30 GRAMS TUBE TP SCH (12:25)
[2020-07-08 16:14] LABS: BLOOD UREA NITROGEN 46.8 mg/dL (7-18); CALCIUM 8.6 mg/dL (8.5-10.1); CREATININE 2.3 mg/dL (0.55-1.3)
[2020-07-08] MEDS ORDERED: PT OWN MED DRAWER 7, Y5N ONE (21:30)
[2020-07-08] MEDS: PANTOPRAZOLE 40 MG TABLET PO SCH (21:37)
[2020-07-08] MEDS: SENNOSIDES 8.8 MG/5 ML BULK BOTTLE PO SCH (21:38)
[2020-07-09] MEDS: INSULIN SLIDING SCALE (NOVOLOG) 1 VIAL SQ SCH ×4 (06:40→21:54)
[2020-07-09] MEDS: INSULIN (LEVEMIR) 100 UNITS/ML UNITS SQ SCH (06:40)
[2020-07-09 07:22] LABS: BASO % 0.8 % (0-2.0); EOS % 10.5 % (0-4.5); HEMATOCRIT 30.6 % (32.4-45.2); HEMOGLOBIN 10.1 GM/dL (10.7-15.3); MCH 30.5 pg (25.7-33.7); MCHC 32.9 g/dl (32.0-36.0); MEAN CELL VOLUME 92.7 fl (80-96); MEAN PLT VOLUME 9.7 fl (7.5-11.1); MONO % 6.7 % (3.8-10.2); PLATELET COUNT 283 K/MM3 (134-434); RDW 16.8 % (11.6-15.6); WHITE BLOOD COUNT 7.5 K/mm3 (4.0-10.0)
[2020-07-09 07:42] LABS: POTASSIUM 3.9 mmol/L (3.5-5.1)
[2020-07-09 07:44] LABS: CALCIUM 8.6 mg/dL (8.5-10.1)
[2020-07-09 07:45] LABS: ALBUMIN 2.3 g/dl (3.4-5.0); MAGNESIUM 1.8 mg/dL (1.8-2.4)
[2020-07-09 07:48] LABS: CREATININE 2.2 mg/dL (0.55-1.3); PHOSPHOROUS 3.2 mg/dL (2.5-4.9)
[2020-07-09 07:49] LABS: TOT PROT 5.7 g/dl (6.4-8.2)
[2020-07-09 07:53] LABS: BILIRUBIN,TOTAL 0.5 mg/dL (0.2-1)
[2020-07-09] MEDS ORDERED: PT OWN MED DRAWER 7, Y5N ONE (10:56)
[2020-07-09] MEDS: FUROSEMIDE 40 MG TABLET (FP) PO SCH (10:57)
[2020-07-09] MEDS: amLODIPine BESYLATE 5 MG TABLET (FP) PO SCH (10:58)
[2020-07-09] MEDS: PANTOPRAZOLE 40 MG TABLET PO SCH ×2 (10:58→21:54)
[2020-07-09] MEDS: CARVEDILOL 6.25 MG TABLET (FP) PO SCH ×2 (10:58→21:54)
[2020-07-09] MEDS: APIXABAN 2.5 MG TABLET PO SCH ×2 (10:58→21:54)
[2020-07-09] MEDS: AMINO ACIDS/PROTEIN HYDROLYS 30 ML LIQUID.PKT PO SCH (10:59)
[2020-07-09] MEDS: DOCUSATE NA 100 MG/10 ML UNIT-DOSE CUPS PO SCH (10:59)
[2020-07-09] MEDS: MULTIVIT-MINERALS ORAL LIQUID PO SCH (10:59)
[2020-07-09] MEDS: COLLAGENASE CLOSTRIDIUM HIST. 30 GRAMS TUBE TP SCH (11:17)
[2020-07-09] MEDS: SENNOSIDES 8.8 MG/5 ML BULK BOTTLE PO SCH (21:54)
[2020-07-10] MEDS: INSULIN (LEVEMIR) 100 UNITS/ML UNITS SQ SCH (06:33)
[2020-07-10] MEDS: INSULIN SLIDING SCALE (NOVOLOG) 1 VIAL SQ SCH ×4 (06:33→21:21)
[2020-07-10 07:05] LABS: HEMATOCRIT 29.5 % (32.4-45.2); HEMOGLOBIN 9.9 GM/dL (10.7-15.3); MCH 30.9 pg (25.7-33.7); MCHC 33.7 g/dl (32.0-36.0); MEAN CELL VOLUME 91.9 fl (80-96); MEAN PLT VOLUME 9.6 fl (7.5-11.1); PLATELET COUNT 290 K/MM3 (134-434); RBC 3.21 M/mm3 (3.60-5.2); RDW 16.7 % (11.6-15.6); WHITE BLOOD COUNT 7.9 K/mm3 (4.0-10.0)
[2020-07-10 07:19] LABS: POTASSIUM 3.7 mmol/L (3.5-5.1)
[2020-07-10 07:30] LABS: ALBUMIN 2.2 g/dl (3.4-5.0); BLOOD UREA NITROGEN 41.8 mg/dL (7-18); CALCIUM 8.6 mg/dL (8.5-10.1)
[2020-07-10 07:34] LABS: CREATININE 2.2 mg/dL (0.55-1.3)
[2020-07-10 07:35] LABS: TOT PROT 5.5 g/dl (6.4-8.2)
[2020-07-10 07:49] LABS: BILIRUBIN,TOTAL 0.9 mg/dL (0.2-1)
[2020-07-10] MEDS: AMINO ACIDS/PROTEIN HYDROLYS 30 ML LIQUID.PKT PO SCH (08:45)
[2020-07-10] MEDS ORDERED: PT OWN MED DRAWER 7, Y5N ONE (10:39)
[2020-07-10] MEDS: PANTOPRAZOLE 40 MG TABLET PO SCH ×2 (10:56→21:18)
[2020-07-10] MEDS: CARVEDILOL 6.25 MG TABLET (FP) PO SCH ×2 (10:56→21:18)
[2020-07-10] MEDS: FUROSEMIDE 40 MG TABLET (FP) PO SCH (10:56)
[2020-07-10] MEDS: amLODIPine BESYLATE 5 MG TABLET (FP) PO SCH (10:56)
[2020-07-10] MEDS: APIXABAN 2.5 MG TABLET PO SCH ×2 (10:56→21:18)
[2020-07-10] MEDS: DOCUSATE NA 100 MG/10 ML UNIT-DOSE CUPS PO SCH (10:57)
[2020-07-10] MEDS: MULTIVIT-MINERALS ORAL LIQUID PO SCH (10:58)
[2020-07-10] MEDS: COLLAGENASE CLOSTRIDIUM HIST. 30 GRAMS TUBE TP SCH (10:58)
[2020-07-10] MEDS ORDERED: DEXTROSE 5%-WATER - 1,000 ML IV SCH (11:45)
[2020-07-10] MEDS: SENNOSIDES 8.8 MG/5 ML BULK BOTTLE PO SCH (21:18)
[2020-07-10] MEDS: ACETAMINOPHEN 325 MG TABLET (FP) PO PRN (21:25)
[2020-07-11] MEDS ORDERED: DEXTROSE 5%-WATER - 1,000 ML IV SCH (01:00)
[2020-07-11] MEDS: INSULIN SLIDING SCALE (NOVOLOG) 1 VIAL SQ SCH ×4 (06:30→22:33)
[2020-07-11] MEDS: INSULIN (LEVEMIR) 100 UNITS/ML UNITS SQ SCH (06:31)
[2020-07-11] MEDS: AMINO ACIDS/PROTEIN HYDROLYS 30 ML LIQUID.PKT PO SCH (08:30)
[2020-07-11 10:02] LABS: BASO % 0.9 % (0-2.0); HEMATOCRIT 32.2 % (32.4-45.2); HEMOGLOBIN 10.6 GM/dL (10.7-15.3); LYMPH % 41.7 % (8-40); MCH 30.5 pg (25.7-33.7); MCHC 32.8 g/dl (32.0-36.0); MEAN CELL VOLUME 92.8 fl (80-96); MONO % 5.9 % (3.8-10.2); NEUT % 42.5 % (42.8-82.8); PLATELET COUNT 313 K/MM3 (134-434); RBC 3.47 M/mm3 (3.60-5.2); RDW 17.1 % (11.6-15.6); WHITE BLOOD COUNT 7.4 K/mm3 (4.0-10.0)
[2020-07-11 10:22] LABS: POTASSIUM 3.9 mmol/L (3.5-5.1)
[2020-07-11 10:25] LABS: BLOOD UREA NITROGEN 40.8 mg/dL (7-18); CALCIUM 8.9 mg/dL (8.5-10.1)
[2020-07-11 10:30] LABS: CREATININE 2.2 mg/dL (0.55-1.3)
[2020-07-11] MEDS: APIXABAN 2.5 MG TABLET PO SCH ×2 (11:50→22:32)
[2020-07-11] MEDS: CARVEDILOL 6.25 MG TABLET (FP) PO SCH ×2 (11:50→22:32)
[2020-07-11] MEDS: PANTOPRAZOLE 40 MG TABLET PO SCH ×2 (11:50→22:32)
[2020-07-11] MEDS: amLODIPine BESYLATE 5 MG TABLET (FP) PO SCH (11:50)
[2020-07-11] MEDS: FUROSEMIDE 40 MG TABLET (FP) PO SCH (11:51)
[2020-07-11] MEDS: DOCUSATE NA 100 MG/10 ML UNIT-DOSE CUPS PO SCH (11:51)
[2020-07-11] MEDS: MULTIVIT-MINERALS ORAL LIQUID PO SCH (11:52)
[2020-07-11] MEDS ORDERED: PT OWN MED DRAWER 7, Y5N ONE ×2 (11:52→22:17)
[2020-07-11] MEDS: COLLAGENASE CLOSTRIDIUM HIST. 30 GRAMS TUBE TP SCH (13:25)
[2020-07-11] MEDS: ACETAMINOPHEN 325 MG TABLET (FP) PO PRN (18:06)
[2020-07-11] MEDS: SENNOSIDES 8.8 MG/5 ML BULK BOTTLE PO SCH (22:33)
[2020-07-12] MEDS: INSULIN SLIDING SCALE (NOVOLOG) 1 VIAL SQ SCH ×4 (06:25→21:36)
[2020-07-12] MEDS: INSULIN (LEVEMIR) 100 UNITS/ML UNITS SQ SCH (06:25)
[2020-07-12 08:48] LABS: POTASSIUM 3.8 mmol/L (3.5-5.1)
[2020-07-12 08:57] LABS: BLOOD UREA NITROGEN 43.1 mg/dL (7-18)
[2020-07-12 09:00] LABS: CALCIUM 8.6 mg/dL (8.5-10.1); CREATININE 2.2 mg/dL (0.55-1.3)
[2020-07-12] MEDS ORDERED: PT OWN MED DRAWER 7, Y5N ONE (09:19)
[2020-07-12] MEDS: MULTIVIT-MINERALS ORAL LIQUID PO SCH (10:00)
[2020-07-12] MEDS: PANTOPRAZOLE 40 MG TABLET PO SCH ×2 (10:00→21:35)
[2020-07-12] MEDS: DOCUSATE NA 100 MG/10 ML UNIT-DOSE CUPS PO SCH (10:00)
[2020-07-12] MEDS: amLODIPine BESYLATE 5 MG TABLET (FP) PO SCH (10:00)
[2020-07-12] MEDS: CARVEDILOL 6.25 MG TABLET (FP) PO SCH ×2 (10:01→21:35)
[2020-07-12] MEDS: FUROSEMIDE 40 MG TABLET (FP) PO SCH (10:01)
[2020-07-12] MEDS: APIXABAN 2.5 MG TABLET PO SCH ×2 (10:01→21:35)
[2020-07-12] MEDS: COLLAGENASE CLOSTRIDIUM HIST. 30 GRAMS TUBE TP SCH (10:01)
[2020-07-12] MEDS: AMINO ACIDS/PROTEIN HYDROLYS 30 ML LIQUID.PKT PO SCH (10:01)
[2020-07-12 13:29] VITALS: BMI 38.9
[2020-07-12] MEDS: ACETAMINOPHEN 325 MG TABLET (FP) PO PRN (21:35)
[2020-07-12] MEDS: SENNOSIDES 8.8 MG/5 ML BULK BOTTLE PO SCH (21:37)
[2020-07-13] MEDS: INSULIN SLIDING SCALE (NOVOLOG) 1 VIAL SQ SCH ×4 (06:01→21:02)
[2020-07-13] MEDS: INSULIN (LEVEMIR) 100 UNITS/ML UNITS SQ SCH (06:01)
[2020-07-13 07:52] LABS: EOS % 5.1 % (0-4.5); HEMATOCRIT 32.5 % (32.4-45.2); HEMOGLOBIN 10.8 GM/dL (10.7-15.3); LYMPH % 45.2 % (8-40); MCH 30.6 pg (25.7-33.7); MCHC 33.2 g/dl (32.0-36.0); MEAN CELL VOLUME 92.3 fl (80-96); MEAN PLT VOLUME 10.1 fl (7.5-11.1); NEUT % 40.7 % (42.8-82.8); PLATELET COUNT 320 K/MM3 (134-434); RBC 3.52 M/mm3 (3.60-5.2); RDW 16.8 % (11.6-15.6); WHITE BLOOD COUNT 8.6 K/mm3 (4.0-10.0)
[2020-07-13 07:55] LABS: POTASSIUM 3.9 mmol/L (3.5-5.1)
[2020-07-13 07:58] LABS: ALBUMIN 2.5 g/dl (3.4-5.0); CALCIUM 9.1 mg/dL (8.5-10.1)
[2020-07-13 07:59] LABS: BLOOD UREA NITROGEN 41.5 mg/dL (7-18); MAGNESIUM 1.9 mg/dL (1.8-2.4)
[2020-07-13 08:03] LABS: CREATININE 2.4 mg/dL (0.55-1.3); PHOSPHOROUS 3.7 mg/dL (2.5-4.9)
[2020-07-13 08:04] LABS: TOT PROT 6.2 g/dl (6.4-8.2)
[2020-07-13 08:06] LABS: BILIRUBIN,TOTAL 0.4 mg/dL (0.2-1)
[2020-07-13] MEDS ORDERED: PT OWN MED DRAWER 7, Y5N ONE (09:14)
[2020-07-13] MEDS: PANTOPRAZOLE 40 MG TABLET PO SCH ×2 (09:24→21:02)
[2020-07-13] MEDS: DOCUSATE NA 100 MG/10 ML UNIT-DOSE CUPS PO SCH (09:24)
[2020-07-13] MEDS: CARVEDILOL 6.25 MG TABLET (FP) PO SCH ×2 (09:24→21:02)
[2020-07-13] MEDS: amLODIPine BESYLATE 5 MG TABLET (FP) PO SCH (09:24)
[2020-07-13] MEDS: FUROSEMIDE 40 MG TABLET (FP) PO SCH (09:24)
[2020-07-13] MEDS: MULTIVIT-MINERALS ORAL LIQUID PO SCH (09:24)
[2020-07-13] MEDS: APIXABAN 2.5 MG TABLET PO SCH ×2 (09:24→21:02)
[2020-07-13] MEDS: AMINO ACIDS/PROTEIN HYDROLYS 30 ML LIQUID.PKT PO SCH (09:25)
[2020-07-13] MEDS: COLLAGENASE CLOSTRIDIUM HIST. 30 GRAMS TUBE TP SCH (09:25)
[2020-07-13] MEDS: ACETAMINOPHEN 325 MG TABLET (FP) PO PRN (18:00)
[2020-07-14] MEDS: INSULIN (LEVEMIR) 100 UNITS/ML UNITS SQ SCH (06:17)
[2020-07-14] MEDS: INSULIN SLIDING SCALE (NOVOLOG) 1 VIAL SQ SCH (06:17)
[2020-07-14 09:30] VITALS: BP 153/67; PULSE 70; TEMP 98.1
[2020-07-14] MEDS ORDERED: PT OWN MED DRAWER 7, Y5N ONE (09:32)
[2020-07-14] MEDS: AMINO ACIDS/PROTEIN HYDROLYS 30 ML LIQUID.PKT PO SCH (09:34)
[2020-07-14] MEDS: PANTOPRAZOLE 40 MG TABLET PO SCH (09:34)
[2020-07-14] MEDS: FUROSEMIDE 40 MG TABLET (FP) PO SCH (09:34)
[2020-07-14] MEDS: CARVEDILOL 6.25 MG TABLET (FP) PO SCH (09:34)
[2020-07-14] MEDS: APIXABAN 2.5 MG TABLET PO SCH (09:34)
[2020-07-14] MEDS: amLODIPine BESYLATE 5 MG TABLET (FP) PO SCH (09:34)
[2020-07-14] MEDS: COLLAGENASE CLOSTRIDIUM HIST. 30 GRAMS TUBE TP SCH (09:35)
[2020-07-14] MEDS: MULTIVIT-MINERALS ORAL LIQUID PO SCH (09:35)
== END 2020-07-14 13:14 | disposition home or self-care (01) | DRG 356 ==
LOC: JER 16:28 → JERBED 21:46 → JICU 06-12 00:02 → J4S 06-22 21:25
PROVIDERS: ADMIT Internal Medicine
PROC: 05HM33Z Insertion of Infusion Device into Right Internal Jugular Vein, Percutaneous Approach (ICD-10-PCS; principal; 2020-06-11)
PROC: B543ZZA Ultrasonography of Right Jugular Veins, Guidance (ICD-10-PCS; 2020-06-11)
PROC: 30233N1 Transfusion of Nonautologous Red Blood Cells into Peripheral Vein, Percutaneous Approach (ICD-10-PCS; 2020-06-11)
PROC: 5A1D70Z Performance of Urinary Filtration, Intermittent, Less than 6 Hours Per Day (ICD-10-PCS; 2020-06-18)
PROC: 5A1D70Z Performance of Urinary Filtration, Intermittent, Less than 6 Hours Per Day (ICD-10-PCS; 2020-06-18)
PROC: 0JB70ZZ Excision of Back Subcutaneous Tissue and Fascia, Open Approach (ICD-10-PCS; 2020-06-28)
DX: K92.2 Gastrointestinal hemorrhage, unspecified (principal); J96.01 Acute respiratory failure with hypoxia; A41.89 Other specified sepsis; R65.21 Severe sepsis with septic shock; R57.1 Hypovolemic shock; G92 Toxic encephalopathy; U07.1 COVID-19; I69.351 Hemiplegia and hemiparesis following cerebral infarction affecting right dominant side; I50.32 Chronic diastolic (congestive) heart failure; N17.9 Acute kidney failure, unspecified; I82.409 Acute embolism and thrombosis of unspecified deep veins of unspecified lower extremity; I13.0 Hypertensive heart and chronic kidney disease with heart failure and stage 1 through stage 4 chronic kidney disease, or unspecified chronic kidney disease; N39.0 Urinary tract infection, site not specified; E87.0 Hyperosmolality and hypernatremia; I25.10 Atherosclerotic heart disease of native coronary artery without angina pectoris; K21.9 Gastro-esophageal reflux disease without esophagitis; E03.9 Hypothyroidism, unspecified; R68.0 Hypothermia, not associated with low environmental temperature; E11.40 Type 2 diabetes mellitus with diabetic neuropathy, unspecified; G47.30 Sleep apnea, unspecified; E87.5 Hyperkalemia; M54.5 Low back pain; E78.5 Hyperlipidemia, unspecified; N28.1 Cyst of kidney, acquired; I95.2 Hypotension due to drugs; T44.7X1A Poisoning by beta-adrenoreceptor antagonists, accidental (unintentional), initial encounter; E66.9 Obesity, unspecified; Z68.39 Body mass index [BMI] 39.0-39.9, adult; D63.1 Anemia in chronic kidney disease; R00.1 Bradycardia, unspecified; I35.0 Nonrheumatic aortic (valve) stenosis; E11.22 Type 2 diabetes mellitus with diabetic chronic kidney disease; B96.20 Unspecified Escherichia coli [E. coli] as the cause of diseases classified elsewhere; N18.9 Chronic kidney disease, unspecified; L89.150 Pressure ulcer of sacral region, unstageable; L89.310 Pressure ulcer of right buttock, unstageable; L89.320 Pressure ulcer of left buttock, unstageable; Z95.5 Presence of coronary angioplasty implant and graft; Z95.1 Presence of aortocoronary bypass graft; Z86.73 Personal history of transient ischemic attack (TIA), and cerebral infarction without residual deficits; Z90.49 Acquired absence of other specified parts of digestive tract
CPT/HCPCS: 36415; 36430; 36600; 71045-TC-FY; 71275-TC; 74174-TC; 74230-TC-FY; 80048; 80053; 81003; 82272; 82308; 82550; 82553; 82607; 82728; 82746; 82803; 82962; 83010; 83540; 83550; 83605; 83615; 83735; 83880; 84100; 84155; 84165; 84443; 84466; 84484; 85025; 85027; 85045; 85610; 85730; 86704; 86706; 86707; 86708; 86709; 86803; 86850; 86900; 86901; 86922; 87040; 87086; 87186; 87205; 87340; 92611-GN; 93005; 93010; 93971-TC; 94660; 97161-GP; 99291; C9803; J0131; J1644; P9058; U0003

== ENCOUNTER 2021-02-17 14:59 | Inpatient (IN) | payer OTHER ==
[2021-02-17] MEDS ORDERED: VANCOMYCIN 1,000 MG in DEXTROSE 5%-WATER - 250 ML IVPB ONE (15:54)
[2021-02-17] MEDS ORDERED: PIPERACILLIN/TAZOBACTAM 4.5 GM VIAL IVPB ONE (15:54)
[2021-02-17] MEDS ORDERED: ACETAMINOPHEN 1000 MG/100 ML VIAL (NON FORMULARY) IVPB ONE (15:55)
[2021-02-17] MEDS ORDERED: morphine CARPU-JECT 2 MG/1 ML DISP.SYRIN IVPUSH ONE (15:56)
[2021-02-17] MEDS ORDERED: SODIUM CHLORIDE 0.9% 1000 ML INFUS.BAG IV ONE (16:02)
[2021-02-17] MEDS ORDERED: morphine SULFATE 4 MG/ML VIAL ONE (17:56)
[2021-02-17] MEDS ORDERED: VANCOMYCIN 1 GRAM (PRE-DOCKED) 1,000 MG/250 ML BAG IVPB ONE ×2 (17:57→17:58)
[2021-02-17] MEDS ORDERED: PIPERACILLIN/TAZOB 4.5 GM 4.5 GM/100 ML BAG IVPB ONE (17:57)
[2021-02-17] MEDS ORDERED: ACETAMINOPHEN INJECTION 100 ML IVPB ONE (17:58)
[2021-02-17 18:24] LABS: BASO % 0.5 % (0-2.0); EOS % 2.4 % (0-4.5); HEMOGLOBIN 11.3 GM/dL (10.7-15.3); LYMPH % 29.6 % (8-40); MCH 30.5 pg (25.7-33.7); MCHC 32.3 g/dl (32.0-36.0); MEAN CELL VOLUME 94.7 fl (80-96); MEAN PLT VOLUME 9.6 fl (7.5-11.1); MONO % 6.4 % (3.8-10.2); NEUT % 61.1 % (42.8-82.8); PLATELET COUNT 349 10^3/uL (134-434); RDW 15.5 % (11.6-15.6); WHITE BLOOD COUNT 10.9 K/mm3 (4.0-10.0)
[2021-02-17 18:36] LABS: INR 1.64 (0.83-1.09); PROTHROMBIN TIME (PATIENT) 20.3 SEC (9.7-13.0)
[2021-02-17 18:37] LABS: CHLORIDE 105 mmol/L (98-107); SODIUM 141 mmol/L (136-145)
[2021-02-17 18:38] LABS: ACTIVATED PTT 31.5 SECONDS (25.2-36.5); CALCIUM 9.1 mg/dL (8.5-10.1)
[2021-02-17 18:39] LABS: ALBUMIN 2.4 g/dl (3.4-5.0); BLOOD UREA NITROGEN 48.4 mg/dL (7-18); CO2 30 mmol/L (21-32); GLUCOSE,RANDOM 223 mg/dL (74-106)
[2021-02-17 18:42] LABS: CREATININE 2.9 mg/dL (0.55-1.3); SGOT/AST 17 U/L (15-37); SGPT/ALT 23 U/L (13-61)
[2021-02-17 18:44] LABS: BILIRUBIN,TOTAL 0.3 mg/dL (0.2-1); TOT PROT 6.2 g/dl (6.4-8.2)
[2021-02-17 18:45] LABS: ALK PHOS 98 U/L (45-117)
[2021-02-17 18:54] LABS: ANION GAP 6 MMOL/L (8-16)
[2021-02-17] MEDS ORDERED: LACTATED RINGERS SOLUTION 1000 ML INFUS.BAG IV ONE (19:01)
[2021-02-17] MEDS ORDERED: INSULIN REGULAR HUMAN 100 UNITS/ML *VIAL IVPUSH ONE (19:21)
[2021-02-17] MEDS ORDERED: DEXTROSE 50%-WATER - 25 GM/50 ML VIAL IVPUSH ONE ×2 (19:26→19:29)
[2021-02-17] MEDS ORDERED: DEXTROSE 50%-WATER 25 GM/50 ML DISP.SYRIN ONE (20:53)
[2021-02-17] MEDS ORDERED: INSULIN REGULAR HUMAN 100 UNITS/ML *VIAL ONE (20:53)
[2021-02-17 22:47] LABS: EPI CELLS >36 /uL (0-25.1); HYALINE CASTS 17 /uL (0-3.1); PH,URINE 6.5 (5.0-8.0); URINE APPEARANCE TURBID; URINE BACTERIA >9,000 /uL (0-1359); URINE BILIRUBIN NEGATIVE (NEGATIVE); URINE COLOR YELLOW; URINE GLUCOSE (UA) TRACE (NEGATIVE); URINE KETONE NEGATIVE (NEGATIVE); URINE LEUK ESTERASE 3+ (NEGATIVE); URINE NITRITE POSITIVE (NEGATIVE); URINE PROTEIN 2+ (NEGATIVE); URINE RBC 42 /uL (0-23.9); URINE UROBILINOGEN 0.2 mg/dL (0.2-1.0); URINE WBC 3417 /uL (0-25.8)
[2021-02-18 01:14] LABS: CALCIUM 8.3 mg/dL (8.5-10.1)
[2021-02-18 01:15] LABS: BLOOD UREA NITROGEN 47.2 mg/dL (7-18)
[2021-02-18 01:18] LABS: CREATININE 2.8 mg/dL (0.55-1.3)
[2021-02-18] MEDS ORDERED: SODIUM CHLORIDE 1,000 ML IV SCH (04:15)
[2021-02-18] MEDS ORDERED: MEROPENEM 500 MG VIAL (RESTRICTED TO ID) IVPB ONE ×2 (04:51→16:31)
[2021-02-18] MEDS ORDERED: LINEZOLID 600 MG PREMIX BAG 600 MG/300 ML BAG IVPB SCH (05:00)
[2021-02-18] MEDS ORDERED: MEROPENEM 500 MG in DEXTROSE 5%-WATER 100 ML IVPB SCH (05:00)
[2021-02-18 05:46] LABS: HEMATOCRIT 31.8 % (32.4-45.2); HEMOGLOBIN 10.4 GM/dL (10.7-15.3); MCH 31.4 pg (25.7-33.7); MCHC 32.6 g/dl (32.0-36.0); MEAN CELL VOLUME 96.5 fl (80-96); MEAN PLT VOLUME 9.5 fl (7.5-11.1); PLATELET COUNT 309 10^3/uL (134-434); RDW 15.2 % (11.6-15.6); WHITE BLOOD COUNT 9.9 K/mm3 (4.0-10.0)
[2021-02-18 06:10] LABS: CALCIUM 8.6 mg/dL (8.5-10.1)
[2021-02-18 06:11] LABS: BLOOD UREA NITROGEN 46.6 mg/dL (7-18)
[2021-02-18 06:13] LABS: CHOLESTEROL 135 mg/dL (50-200)
[2021-02-18 06:14] LABS: CREATININE 2.8 mg/dL (0.55-1.3); PHOSPHOROUS 4.7 mg/dL (2.5-4.9); TRIGLYCERIDES 214 mg/dL (0-150)
[2021-02-18 06:15] LABS: LDL CHOLESTEROL (ONLY SJRH) 66 mg/dL (5-100)
[2021-02-18 06:17] LABS: HDL CHOLESTEROL 33 mg/dL (40-60)
[2021-02-18] MEDS: INSULIN SLIDING SCALE (NOVOLOG) 1 VIAL SQ SCH ×4 (07:47→21:47)
[2021-02-18] MEDS: amLODIPine BESYLATE 5 MG TABLET (FP) PO SCH (09:57)
[2021-02-18] MEDS: PANTOPRAZOLE 40 MG TABLET PO SCH ×2 (09:57→21:00)
[2021-02-18] MEDS ORDERED: APIXABAN 2.5 MG TABLET PO SCH (10:00)
[2021-02-18] MEDS ORDERED: APIXABAN 5 MG TABLET PO SCH (13:04)
[2021-02-18] MEDS ORDERED: PT OWN MED DRAWER 7, Y5N ONE ×2 (14:29→16:32)
[2021-02-18] MEDS ORDERED: DEXTROSE 5%-WATER 100 ML IVPB ONE (16:32)
[2021-02-18] MEDS: MEROPENEM 500 MG in DEXTROSE 5%-WATER 100 ML IVPB SCH (16:39)
[2021-02-18] MEDS: COLLAGENASE CLOSTRIDIUM HIST. 30 GRAMS TUBE TP SCH ×2 (17:21→17:22)
[2021-02-18] MEDS ORDERED: MULTIVITAMINS (DAILY MVI) TABLET (FP) PO ONE (19:23)
[2021-02-18] MEDS: ACETAMINOPHEN 325 MG TABLET (FP) PO PRN (20:59)
[2021-02-18] MEDS: APIXABAN 2.5 MG TABLET PO SCH (21:00)
[2021-02-18] MEDS: ROSUVASTATIN CA 10 MG TABLET (FP) PO SCH (21:00)
[2021-02-19] MEDS ORDERED: MEROPENEM 500 MG VIAL (RESTRICTED TO ID) IVPB ONE ×2 (04:20→16:28)
[2021-02-19] MEDS ORDERED: DEXTROSE 5%-WATER 100 ML IVPB ONE ×2 (04:21→16:28)
[2021-02-19] MEDS: MEROPENEM 500 MG in DEXTROSE 5%-WATER 100 ML IVPB SCH ×2 (04:22→16:58)
[2021-02-19] MEDS ORDERED: MEROPENEM 500 MG in DEXTROSE 5%-WATER 100 ML IVPB SCH (05:00)
[2021-02-19] MEDS ORDERED: LINEZOLID 600 MG PREMIX BAG 600 MG/300 ML BAG IVPB SCH (05:00)
[2021-02-19] MEDS: ACETAMINOPHEN 325 MG TABLET (FP) PO PRN ×2 (05:20→17:46)
[2021-02-19] MEDS: INSULIN SLIDING SCALE (NOVOLOG) 1 VIAL SQ SCH ×5 (06:24→22:37)
[2021-02-19] MEDS ORDERED: PT OWN MED DRAWER 7, Y5N ONE ×3 (09:33→22:17)
[2021-02-19] MEDS: APIXABAN 2.5 MG TABLET PO SCH ×3 (09:35→22:38)
[2021-02-19] MEDS: amLODIPine BESYLATE 5 MG TABLET (FP) PO SCH (09:35)
[2021-02-19] MEDS: AMINO ACIDS/PROTEIN HYDROLYS 30 ML LIQUID.PKT PO SCH ×2 (09:35→16:59)
[2021-02-19] MEDS: PANTOPRAZOLE 40 MG TABLET PO SCH ×3 (09:35→22:38)
[2021-02-19] MEDS: COLLAGENASE CLOSTRIDIUM HIST. 30 GRAMS TUBE TP SCH ×2 (09:36)
[2021-02-19] MEDS ORDERED: VANCOMYCIN/WATER BAGS 1,250 MG/250 ML BAG IVPB ONE (09:45)
[2021-02-19 12:14] LABS: BASO % 0.5 % (0-2.0); EOS % 2.2 % (0-4.5); HEMATOCRIT 34.4 % (32.4-45.2); HEMOGLOBIN 11.1 GM/dL (10.7-15.3); LYMPH % 35.6 % (8-40); MCH 30.9 pg (25.7-33.7); MCHC 32.1 g/dl (32.0-36.0); MEAN CELL VOLUME 96.1 fl (80-96); MEAN PLT VOLUME 10.3 fl (7.5-11.1); MONO % 5.1 % (3.8-10.2); NEUT % 56.6 % (42.8-82.8); PLATELET COUNT 197 10^3/uL (134-434); RBC 3.58 M/mm3 (3.60-5.2); WHITE BLOOD COUNT 8.2 K/mm3 (4.0-10.0)
[2021-02-19 12:32] LABS: CALCIUM 8.6 mg/dL (8.5-10.1)
[2021-02-19 12:33] LABS: BLOOD UREA NITROGEN 41.6 mg/dL (7-18)
[2021-02-19 12:36] LABS: CREATININE 2.5 mg/dL (0.55-1.3); PHOSPHOROUS 4.3 mg/dL (2.5-4.9)
[2021-02-19 12:37] LABS: BILIRUBIN,TOTAL 0.2 mg/dL (0.2-1)
[2021-02-19 12:38] LABS: TOT PROT 5.5 g/dl (6.4-8.2)
[2021-02-19] MEDS: ROSUVASTATIN CA 10 MG TABLET (FP) PO SCH ×2 (22:21→22:38)
[2021-02-20] MEDS ORDERED: MEROPENEM 500 MG VIAL (RESTRICTED TO ID) IVPB ONE ×2 (04:27→16:56)
[2021-02-20] MEDS ORDERED: DEXTROSE 5%-WATER 100 ML IVPB ONE ×2 (04:27→16:56)
[2021-02-20] MEDS: MEROPENEM 500 MG in DEXTROSE 5%-WATER 100 ML IVPB SCH ×2 (04:30→17:10)
[2021-02-20] MEDS: INSULIN SLIDING SCALE (NOVOLOG) 1 VIAL SQ SCH ×4 (06:37→22:04)
[2021-02-20] MEDS ORDERED: PT OWN MED DRAWER 7, Y5N ONE (09:53)
[2021-02-20] MEDS: amLODIPine BESYLATE 5 MG TABLET (FP) PO SCH (09:57)
[2021-02-20] MEDS: PANTOPRAZOLE 40 MG TABLET PO SCH ×2 (09:58→21:52)
[2021-02-20] MEDS: COLLAGENASE CLOSTRIDIUM HIST. 30 GRAMS TUBE TP SCH ×2 (09:58→09:59)
[2021-02-20] MEDS: APIXABAN 2.5 MG TABLET PO SCH ×2 (09:58→21:52)
[2021-02-20] MEDS: AMINO ACIDS/PROTEIN HYDROLYS 30 ML LIQUID.PKT PO SCH ×2 (09:58→17:10)
[2021-02-20] MEDS: ROSUVASTATIN CA 10 MG TABLET (FP) PO SCH (21:52)
[2021-02-21] MEDS ORDERED: DEXTROSE 5%-WATER 100 ML IVPB ONE ×2 (05:59→16:33)
[2021-02-21] MEDS ORDERED: MEROPENEM 500 MG VIAL (RESTRICTED TO ID) IVPB ONE ×2 (05:59→16:32)
[2021-02-21] MEDS: MEROPENEM 500 MG in DEXTROSE 5%-WATER 100 ML IVPB SCH ×2 (06:01→17:20)
[2021-02-21] MEDS: INSULIN SLIDING SCALE (NOVOLOG) 1 VIAL SQ SCH ×5 (06:24→22:40)
[2021-02-21 08:59] LABS: BASO % 0.5 % (0-2.0); HEMATOCRIT 29.3 % (32.4-45.2); HEMOGLOBIN 9.5 GM/dL (10.7-15.3); LYMPH % 41.3 % (8-40); MCH 30.9 pg (25.7-33.7); MCHC 32.5 g/dl (32.0-36.0); MEAN CELL VOLUME 95.2 fl (80-96); MEAN PLT VOLUME 9.8 fl (7.5-11.1); MONO % 7.8 % (3.8-10.2); NEUT % 47.4 % (42.8-82.8); PLATELET COUNT 302 10^3/uL (134-434); RBC 3.08 M/mm3 (3.60-5.2); RDW 15.3 % (11.6-15.6); WHITE BLOOD COUNT 10.2 K/mm3 (4.0-10.0)
[2021-02-21 09:28] LABS: CALCIUM 8.7 mg/dL (8.5-10.1)
[2021-02-21 09:29] LABS: BLOOD UREA NITROGEN 40.6 mg/dL (7-18)
[2021-02-21 09:31] LABS: CREATININE 2.7 mg/dL (0.55-1.3)
[2021-02-21 09:32] LABS: BILIRUBIN,TOTAL 0.3 mg/dL (0.2-1)
[2021-02-21 09:33] LABS: TOT PROT 5.3 g/dl (6.4-8.2)
[2021-02-21] MEDS: amLODIPine BESYLATE 5 MG TABLET (FP) PO SCH (10:28)
[2021-02-21] MEDS: AMINO ACIDS/PROTEIN HYDROLYS 30 ML LIQUID.PKT PO SCH ×2 (10:28→17:20)
[2021-02-21] MEDS: PANTOPRAZOLE 40 MG TABLET PO SCH ×3 (10:28→22:57)
[2021-02-21] MEDS: APIXABAN 2.5 MG TABLET PO SCH ×3 (10:29→22:57)
[2021-02-21] MEDS: COLLAGENASE CLOSTRIDIUM HIST. 30 GRAMS TUBE TP SCH ×2 (13:48)
[2021-02-21] MEDS: ROSUVASTATIN CA 10 MG TABLET (FP) PO SCH ×2 (22:40→22:58)
[2021-02-22] MEDS ORDERED: MEROPENEM 500 MG VIAL (RESTRICTED TO ID) IVPB ONE ×2 (04:49→17:00)
[2021-02-22] MEDS ORDERED: DEXTROSE 5%-WATER 100 ML IVPB ONE ×2 (04:50→17:00)
[2021-02-22] MEDS: MEROPENEM 500 MG in DEXTROSE 5%-WATER 100 ML IVPB SCH ×2 (05:16→17:04)
[2021-02-22] MEDS: INSULIN SLIDING SCALE (NOVOLOG) 1 VIAL SQ SCH ×4 (06:32→23:13)
[2021-02-22] MEDS ORDERED: INSULIN (LEVEMIR) 100 UNITS/ML UNITS SQ ONE (07:26)
[2021-02-22] MEDS ORDERED: INSULIN (NOVOLOG) ASPART 100 UNITS/ML 10ML VIAL ONE (07:26)
[2021-02-22] MEDS: AMINO ACIDS/PROTEIN HYDROLYS 30 ML LIQUID.PKT PO SCH ×3 (08:41→17:05)
[2021-02-22] MEDS ORDERED: PT OWN MED DRAWER 7, Y5N ONE (10:35)
[2021-02-22] MEDS: amLODIPine BESYLATE 5 MG TABLET (FP) PO SCH (10:42)
[2021-02-22] MEDS: APIXABAN 2.5 MG TABLET PO SCH ×2 (10:42→22:59)
[2021-02-22] MEDS: PANTOPRAZOLE 40 MG TABLET PO SCH ×2 (10:43→22:59)
[2021-02-22] MEDS: COLLAGENASE CLOSTRIDIUM HIST. 30 GRAMS TUBE TP SCH (12:30)
[2021-02-22 15:56] VITALS: BMI 29.7
[2021-02-22] MEDS: ROSUVASTATIN CA 10 MG TABLET (FP) PO SCH (22:59)
[2021-02-23] MEDS ORDERED: DEXTROSE 5%-WATER 100 ML IVPB ONE ×2 (04:36→17:51)
[2021-02-23] MEDS ORDERED: MEROPENEM 500 MG VIAL (RESTRICTED TO ID) IVPB ONE ×2 (04:36→17:51)
[2021-02-23] MEDS: MEROPENEM 500 MG in DEXTROSE 5%-WATER 100 ML IVPB SCH ×2 (04:39→17:58)
[2021-02-23] MEDS: INSULIN SLIDING SCALE (NOVOLOG) 1 VIAL SQ SCH ×4 (06:49→22:14)
[2021-02-23] MEDS ORDERED: INSULIN (LEVEMIR) 100 UNITS/ML UNITS SQ ONE (06:58)
[2021-02-23] MEDS: COLLAGENASE CLOSTRIDIUM HIST. 30 GRAMS TUBE TP SCH (09:00)
[2021-02-23 09:11] LABS: BASO % 0.3 % (0-2.0); EOS % 3.7 % (0-4.5); HEMOGLOBIN 10.1 GM/dL (10.7-15.3); LYMPH % 42.8 % (8-40); MCHC 32.7 g/dl (32.0-36.0); MEAN CELL VOLUME 94.6 fl (80-96); MEAN PLT VOLUME 9.6 fl (7.5-11.1); MONO % 8.1 % (3.8-10.2); NEUT % 45.1 % (42.8-82.8); PLATELET COUNT 332 10^3/uL (134-434); RBC 3.27 M/mm3 (3.60-5.2); RDW 15.1 % (11.6-15.6); WHITE BLOOD COUNT 7.6 K/mm3 (4.0-10.0)
[2021-02-23 09:31] LABS: CALCIUM 8.7 mg/dL (8.5-10.1)
[2021-02-23 09:32] LABS: BLOOD UREA NITROGEN 37.6 mg/dL (7-18)
[2021-02-23 09:35] LABS: CREATININE 2.4 mg/dL (0.55-1.3); PHOSPHOROUS 3.2 mg/dL (2.5-4.9)
[2021-02-23 09:36] LABS: BILIRUBIN,TOTAL 0.2 mg/dL (0.2-1); TOT PROT 5.2 g/dl (6.4-8.2)
[2021-02-23 09:40] LABS: MAGNESIUM 2.1 mg/dL (1.8-2.4)
[2021-02-23] MEDS: APIXABAN 2.5 MG TABLET PO SCH ×2 (10:48→22:11)
[2021-02-23] MEDS: PANTOPRAZOLE 40 MG TABLET PO SCH ×2 (10:48→22:11)
[2021-02-23] MEDS: amLODIPine BESYLATE 5 MG TABLET (FP) PO SCH (10:48)
[2021-02-23] MEDS: AMINO ACIDS/PROTEIN HYDROLYS 30 ML LIQUID.PKT PO SCH ×2 (10:49→17:57)
[2021-02-23] MEDS: ACETAMINOPHEN 325 MG TABLET (FP) PO PRN (17:57)
[2021-02-23] MEDS: ROSUVASTATIN CA 10 MG TABLET (FP) PO SCH (22:11)
[2021-02-24] MEDS: MEROPENEM 500 MG in DEXTROSE 5%-WATER 100 ML IVPB SCH ×2 (06:00→18:27)
[2021-02-24] MEDS ORDERED: MEROPENEM 500 MG VIAL (RESTRICTED TO ID) IVPB ONE ×2 (06:03→17:44)
[2021-02-24] MEDS ORDERED: DEXTROSE 5%-WATER 100 ML IVPB ONE ×2 (06:03→17:44)
[2021-02-24] MEDS: INSULIN SLIDING SCALE (NOVOLOG) 1 VIAL SQ SCH ×4 (06:12→21:34)
[2021-02-24 07:57] LABS: BASO % 0.7 % (0-2.0); EOS % 3.3 % (0-4.5); HEMATOCRIT 30.3 % (32.4-45.2); HEMOGLOBIN 9.9 GM/dL (10.7-15.3); LYMPH % 47.6 % (8-40); MCH 30.7 pg (25.7-33.7); MCHC 32.5 g/dl (32.0-36.0); MEAN CELL VOLUME 94.4 fl (80-96); MONO % 7.6 % (3.8-10.2); NEUT % 40.8 % (42.8-82.8); PLATELET COUNT 302 10^3/uL (134-434); RBC 3.22 M/mm3 (3.60-5.2); RDW 15.4 % (11.6-15.6); WHITE BLOOD COUNT 10.3 K/mm3 (4.0-10.0)
[2021-02-24 08:17] LABS: ALBUMIN 1.8 g/dl (3.4-5.0); CALCIUM 8.5 mg/dL (8.5-10.1)
[2021-02-24 08:18] LABS: BLOOD UREA NITROGEN 46.2 mg/dL (7-18); MAGNESIUM 1.8 mg/dL (1.8-2.4)
[2021-02-24 08:21] LABS: BILIRUBIN,TOTAL 0.3 mg/dL (0.2-1); CREATININE 2.2 mg/dL (0.55-1.3); PHOSPHOROUS 3.4 mg/dL (2.5-4.9)
[2021-02-24] MEDS: COLLAGENASE CLOSTRIDIUM HIST. 30 GRAMS TUBE TP SCH (10:56)
[2021-02-24] MEDS: PANTOPRAZOLE 40 MG TABLET PO SCH ×2 (10:56→21:30)
[2021-02-24] MEDS: APIXABAN 2.5 MG TABLET PO SCH (10:56)
[2021-02-24] MEDS: AMINO ACIDS/PROTEIN HYDROLYS 30 ML LIQUID.PKT PO SCH ×2 (10:56→18:27)
[2021-02-24] MEDS: amLODIPine BESYLATE 5 MG TABLET (FP) PO SCH (11:09)
[2021-02-24] MEDS: ACETAMINOPHEN 325 MG TABLET (FP) PO PRN (21:30)
[2021-02-24] MEDS: ROSUVASTATIN CA 10 MG TABLET (FP) PO SCH (21:30)
[2021-02-25] MEDS ORDERED: DEXTROSE 5%-WATER 100 ML IVPB ONE ×2 (05:43→17:36)
[2021-02-25] MEDS ORDERED: MEROPENEM 500 MG VIAL (RESTRICTED TO ID) IVPB ONE ×2 (05:43→17:36)
[2021-02-25] MEDS: MEROPENEM 500 MG in DEXTROSE 5%-WATER 100 ML IVPB SCH ×2 (05:48→17:41)
[2021-02-25] MEDS: INSULIN SLIDING SCALE (NOVOLOG) 1 VIAL SQ SCH ×4 (06:12→22:10)
[2021-02-25] MEDS: AMINO ACIDS/PROTEIN HYDROLYS 30 ML LIQUID.PKT PO SCH ×2 (09:03→17:41)
[2021-02-25] MEDS: amLODIPine BESYLATE 5 MG TABLET (FP) PO SCH (10:38)
[2021-02-25] MEDS: PANTOPRAZOLE 40 MG TABLET PO SCH ×2 (10:38→22:11)
[2021-02-25] MEDS: COLLAGENASE CLOSTRIDIUM HIST. 30 GRAMS TUBE TP SCH (10:38)
[2021-02-25] MEDS: ROSUVASTATIN CA 10 MG TABLET (FP) PO SCH (22:11)
[2021-02-25 22:32] VITALS: BP 109/52; PULSE 69; TEMP 98.6
[2021-02-26] MEDS ORDERED: DEXTROSE 5%-WATER 100 ML IVPB ONE (05:40)
[2021-02-26] MEDS ORDERED: MEROPENEM 500 MG VIAL (RESTRICTED TO ID) IVPB ONE (05:40)
[2021-02-26] MEDS: MEROPENEM 500 MG in DEXTROSE 5%-WATER 100 ML IVPB SCH (05:47)
[2021-02-26] MEDS: INSULIN SLIDING SCALE (NOVOLOG) 1 VIAL SQ SCH ×2 (06:01→11:29)
[2021-02-26] MEDS: AMINO ACIDS/PROTEIN HYDROLYS 30 ML LIQUID.PKT PO SCH (10:03)
[2021-02-26] MEDS: amLODIPine BESYLATE 5 MG TABLET (FP) PO SCH (10:03)
[2021-02-26] MEDS: COLLAGENASE CLOSTRIDIUM HIST. 30 GRAMS TUBE TP SCH (10:03)
[2021-02-26] MEDS: PANTOPRAZOLE 40 MG TABLET PO SCH (10:03)
== END 2021-02-26 13:00 | disposition home or self-care (01) | DRG 689 ==
LOC: JER 14:59 → JERBED 19:25 → J8W 02-18 08:49
PROVIDERS: ADMIT Internal Medicine; ATTEND Internal Medicine
PROC: 02HV33Z Insertion of Infusion Device into Superior Vena Cava, Percutaneous Approach (ICD-10-PCS; principal; 2021-02-25)
PROC: B548ZZA Ultrasonography of Superior Vena Cava, Guidance (ICD-10-PCS; 2021-02-25)
DX: N39.0 Urinary tract infection, site not specified (principal); R53.2 Functional quadriplegia; G93.41 Metabolic encephalopathy; I50.32 Chronic diastolic (congestive) heart failure; I69.351 Hemiplegia and hemiparesis following cerebral infarction affecting right dominant side; N17.9 Acute kidney failure, unspecified; I13.0 Hypertensive heart and chronic kidney disease with heart failure and stage 1 through stage 4 chronic kidney disease, or unspecified chronic kidney disease; I25.10 Atherosclerotic heart disease of native coronary artery without angina pectoris; K21.9 Gastro-esophageal reflux disease without esophagitis; Z95.1 Presence of aortocoronary bypass graft; E87.5 Hyperkalemia; E11.22 Type 2 diabetes mellitus with diabetic chronic kidney disease; N18.9 Chronic kidney disease, unspecified; E66.9 Obesity, unspecified; L89.159 Pressure ulcer of sacral region, unspecified stage; N31.9 Neuromuscular dysfunction of bladder, unspecified; Z79.4 Long term (current) use of insulin; L89.509 Pressure ulcer of unspecified ankle, unspecified stage; L89.609 Pressure ulcer of unspecified heel, unspecified stage; Z68.29 Body mass index [BMI] 29.0-29.9, adult
CPT/HCPCS: 36415; 36569; 70450-TC; 71045-TC-FY; 73523-TC-FY; 73552-TC-RT-FY; 74230-TC-FY; 75710-TC-FY; 76000-TC-FY; 76775-TC; 77001-TC-FY; 80048; 80053; 80061; 81003; 82962; 83605; 83735; 84100; 84443; 84484; 85025; 85027; 85610; 85730; 87040; 87086; 87186; 92611-GN; 93005; 93010; 97116-GP; 97161-GP; 99285-25; C1751; C9803; J0131; U0003; U0005